=== PATIENT | male | born 1950 | race Caucasian/White ===

== ENCOUNTER 2019-05-11 10:08 | Outpatient (CLI) | payer MEDICARE, SELFPAY ==
--- NOTE | 2019-05-11 10:15 | USCV_ITS ---
Jamie Davison Age: 68 Gender: M : 1950 Exam Date: 05/11/2019 10:26 Ordering Phys: Bonilla Franco MD ([email or web address]) Technologist: Chely Li [place] [facility] [place]: AAA HISTORY: Diameter (cm) AP x Transverse x Length Velocity (cm/s) Waveform Prox Aorta: 3.63 x 3.32 x 62.10 Biphasic Mid Aorta: 2.04 x 1.88 x 65.60 Biphasic Distal Aorta: 2.79 x 2.67 x 39.40 Biphasic Right Iliac Prox: 0.96 x 0.86 x 71.30 Biphasic Left Iliac Prox: 0.79 x 0.62 x 52.70 Biphasic Stent Prox Landing x x Aneurysmal Sac Max x x Lt Lat Sac Dim Rt Lat Sac Dim Stent Dist Landing x x Right Iliac Stent x x Left Iliac Stent x x Right Renal Art Left Renal Art FINDINGS: Comparison:. 01/11/17. Moderate atherosclerosis and ectasia abdomen aorta. Mild progression of athersclerosis since 2017. Maximum diameter is now in the supraumbilical aorta, 3.6 cm. There is no evidence of a right common iliac artery aneurysm. There is no evidence of a left common iliac artery aneurysm. CONCLUSIONS Mild progression of atherosclerosis and AAA since 2017. Maximum diameter now 3.[address] Yumiko Rivero DO (Electronically Signed) Final Date: 11 May 2019 11:47 S
== END 2019-05-11 10:09 | disposition home or self-care (01) ==
LOC: RAD 10:12
PROVIDERS: Family Provider Nurse Practitioner Family; PCP Nurse Practitioner Family; Visit Provider Internal Medicine Cardiovascular Disease
DX: I71.4 Abdominal aortic aneurysm, without rupture (principal); I70.0 Atherosclerosis of aorta
CPT/HCPCS: 93978

== ENCOUNTER 2020-07-12 08:42 | Outpatient (CLI) | payer MEDICARE, SELFPAY ==
--- NOTE | 2020-07-12 08:45 | USCV_ITS ---
Jamie Davison Age: 69 Gender: M : 1950 Exam Date: 07/12/2020 09:06 Ordering Phys: Gamaliel Varela M.D ([email or web address]) Technologist: Nancy Velasquez [place] [facility] [place] AAA HISTORY: Diameter (cm) AP x Transverse x Length Velocity (cm/s) Waveform Prox Aorta: 0.00 x 3.63 x 121.50 Mid Aorta: 3.31 x 2.91 x 118.40 Distal Aorta: 2.64 x 2.36 x 45.75 Right Iliac Prox: 0.79 x 0.94 x 64.10 Left Iliac Prox: 0.85 x 0.99 x 79.50 Stent Prox Landing x x Aneurysmal Sac Max x x Lt Lat Sac Dim Rt Lat Sac Dim Stent Dist Landing x x Right Iliac Stent x x Left Iliac Stent x x Right Renal Art Left Renal Art FINDINGS: Comparison: none available. Suprarenal AAA stable at 3.5 cm. Ectatic abdominal aorta with evidence of atherosclerotic plaque noted. No evidence of periaortic fluid is detected. There is no evidence of a left common iliac artery aneurysm. There is no evidence of a right common iliac artery aneurysm. CONCLUSIONS Stable suprarenal AAA, 3.[address] Yumiko Rivero DO (Electronically Signed) Final Date: 12 July 2020 12:25 S
== END 2020-07-12 08:43 | disposition home or self-care (01) ==
LOC: RAD 08:50
PROVIDERS: PCP Nurse Practitioner Family; Visit Provider Internal Medicine
DX: I71.4 Abdominal aortic aneurysm, without rupture (principal)
CPT/HCPCS: 93978

== ENCOUNTER 2020-11-05 12:27 | Outpatient (CLI) | payer MEDICARE, SELFPAY ==
--- NOTE | 2020-11-05 12:45 | USCV_ITS ---
Jamie Davison Age: 70 Gender: M : 1950 Exam Date: 11/05/2020 12:48 Ordering Phys: Milton Marvin MD (Andy) ([email or web address] [email or web address] Technologist: Ela Holder Exam Location: [facility] [place] Indication: HISTORY: PROCEDURES: FINDINGS: Enlarged lymph node in the left groin measuring 3.1 x 1.4 cm The veins were found to be easily compressible with spontaneous blood flow. Non pulsatile flow pattern. The greater saphenous vein was found to be dilated and superficial bilaterally Multiple echolucent areas in the subcutaneous tissue of the left lower extremity CONCLUSIONS 1. No evidence of DVT in the above-mentioned identifiable veins. 2. Significant venous reflux of greater than 500 ms was noted in the proximal small saphenous vein segment on the right side. The vein was measuring 0.35 cm in diameter at a depth of 0.28 cm 3. No significant venous reflux on the left side 4. Possible enlarged lymph node measuring 3.1 x 1.4 cm in the left groin. 5. Features of fluid retention/marked edema in the left below-knee area Dr Noel Mcclure MD [facility] (Electronically Signed) Final Date: 06 November 2020 23:07 S
== END 2020-11-05 12:28 | disposition home or self-care (01) ==
LOC: RAD 12:32
PROVIDERS: PCP Nurse Practitioner Family; Visit Provider Thoracic Surgery (Cardiothoracic Vascular Surgery)
DX: M79.604 Pain in right leg (principal); M79.605 Pain in left leg
CPT/HCPCS: 93970

== ENCOUNTER 2020-12-24 10:38 | Outpatient (CLI) | payer MEDICARE, SELFPAY ==
--- NOTE | 2020-12-24 11:00 | USCV_ITS ---
Jamie Davison Age: 70 Gender: M : 1950 Exam Date: 12/24/2020 21:22 Ordering Phys: Milotn Marvin MD (Andy) ([email or web address]) Technologist: Christina De Leon Exam Location: [facility] [place] Indication: Pain in leg Risk Factors: Previous Vascular Surgery: Unknown RIGHT LEFT Waveform Velocity (cm/s) Velocity (cm/s) Waveform Triphasic 41.7 Iliac Mid 44.6 Triphasic Triphasic 36.8 Iliac Distal 48.7 Triphasic Triphasic 32.5 CENTRAL OFFICE REPAIRER 38.1 Triphasic Biphasic 27.3 SFA Prox 45.4 Biphasic Biphasic SFA Mid Triphasic 19.7 46.0 SFA Dist 68.4 Triphasic POP 34.2 Triphasic Monophasic 28.2 CONTRACT NEGOTIATION MANAGER 82.9 Monophasic Monophasic 13.7 DPA 46.7 Monophasic ROCHELLE 1.0 0.8 FINDINGS Prior exam on . See measurements listed above. Resting ROCHELLE 0.8 on the right side and 1.0 on the left side No Doppler flow signals in the distal superficial femoral artery and popliteal artery on the right side Mild to moderate diffuse plaques in the iliac and femoral arteries bilaterally CONCLUSIONS 1. Slightly diminished resting ROCHELLE of 0.8 on the right side. No Doppler flow signals in the distal superficial femoral and popliteal artery on the right side suggesting occlusion with collateral filling of the distal vessels. 2. Normal resting ROCHLELE on the left side, suggesting no significant arterial obstruction. 3. Mild to moderate diffuse plaques in the iliac and femoral arteries bilaterally. No similar previous studies are available for comparison. Dr Noel Mcclure MD [facility] (Electronically Signed) Final Date: 24 December 2020 19:46 S
== END 2020-12-24 10:39 | disposition home or self-care (01) ==
LOC: RAD 10:44
PROVIDERS: PCP Nurse Practitioner Family; Visit Provider Thoracic Surgery (Cardiothoracic Vascular Surgery)
DX: M79.606 Pain in leg, unspecified (principal); I73.9 Peripheral vascular disease, unspecified
CPT/HCPCS: 80053; 84134; 85025; 93925

== ENCOUNTER 2021-01-17 09:51 | Outpatient (CLI) | payer MEDICARE, SELFPAY ==
--- NOTE | 2021-01-17 10:00 | CT_ITS ---
WS: [id number] CT scan of the abdominal aorta and peripheral lower extremity arteries. Additional two-dimensional co lisandro and sagittal reconstruction was performed. MIP images were also performed. 01/17/2021 Clinical Data: I73.9 - Peripheral vascular disease, unspecified Comparison: Bilateral lower extremity arterial Doppler ultrasound. DLP: 1420.[address] scans at [facility] use at least one of these dose optimization techniques: automated e xposure control; mA and/or kV adjustment per patient size (includes targeted exams where dose is matc hed to clinical indication); or iterative reconstruction. Findings: Vascular findings: The distal thoracic aorta showed atherosclerotic plaquing. The abdominal aorta showed atherosclerotic dilatation and irregularity. The renal arteries, celiac artery, SMA and LEANDRO were patent. There is at herosclerotic change of the common iliac arteries and their branches. The external iliac arteries for m the common femoral arteries which then bifurcated into the deep and superficial femoral arteries. The distal right superficial femoral artery showed atherosclerotic change and there was diminished si gnal indicating diminished flow. The popliteal artery on the right was not visualized. There was poo r filling of the proximal arteries of the right trifurcation and no contrast is seen in the distal t hird of the right leg. The distal left superficial femoral artery showed normal flow into the left popliteal artery. The art eries of the left trifurcation fill normally and flow was noted into the left ankle and foot. Abdominal and extremity findings: The lower lungs showed minimal atelectatic changes. The liver, gallbladder, spleen, pancreas and adre nal glands are unremarkable. The kidneys showed excellent bilateral contrast excretion with incidenta l cysts and perinephric stranding. The stomach, small bowel and colon were unremarkable. There is no evidence of appendicitis or diverticulitis. There is fecal material throughout the colon. No abscess, adenopathy, ascites, mass, obstruction or free air is seen. The bladder filled well and there was bl adder wall thickening which may be from prostatic enlargement. The bones of the lower thorax and lumb ar spine showed osteoarthritis at multiple degenerative disc disease along with fusion of the L1-L2 v ertebral bodies. The lower extremities showed no bony or soft tissue abnormalities. CT/CT angio abd aorta runof [id number] Impression: 1. Poor runoff into the right lower extremity with narrowing and occlusion of t he distal right superficial femoral artery along with poor filling of the right popliteal artery and arteries of the right lower extremity trifurcation. 2. Atherosclerotic change of the abdominal aorta and the distal aortic arterial branches. 3. Negative for acute intra-abdominal or pelvic abnormalities.
[2021-01-17] MEDS: iohexol 350 mg/mL 100 mL Btl IV (10:55)
== END 2021-01-17 09:52 | disposition home or self-care (01) ==
LOC: RADWPI 09:54
PROVIDERS: PCP Nurse Practitioner Family; Visit Provider Thoracic Surgery (Cardiothoracic Vascular Surgery)
DX: I73.9 Peripheral vascular disease, unspecified (principal)
CPT/HCPCS: 75635; Q9967

== ENCOUNTER → 2021-05-07 10:45 | Outpatient (BNVA) | payer MEDICARE, SELFPAY | PROVIDERS: PCP Nurse Practitioner Family; Referring Provider Internal Medicine; Visit Provider Internal Medicine | DX: Z20.822 Contact with and (suspected) exposure to COVID-19 (principal); I73.9 Peripheral vascular disease, unspecified | CPT/HCPCS: 80048; 85025; 85610; 87635 ==

== ENCOUNTER → 2021-11-03 08:35 | Outpatient (BNVA) | payer MEDICARE, SELFPAY | PROVIDERS: PCP Family Medicine; Visit Provider Family Medicine | DX: I50.9 Heart failure, unspecified (principal); I10 Essential (primary) hypertension | CPT/HCPCS: 80053; 83735; 84100; 85025 ==

== ENCOUNTER → 2021-11-20 11:00 | Outpatient (BNVA) | payer MEDICARE, SELFPAY | PROVIDERS: PCP Family Medicine; Visit Provider Nurse Practitioner Family | DX: I73.9 Peripheral vascular disease, unspecified (principal); L97.511 Non-pressure chronic ulcer of other part of right foot limited to breakdown of skin; L97.811 Non-pressure chronic ulcer of other part of right lower leg limited to breakdown of skin | CPT/HCPCS: 11042 ==

== ENCOUNTER → 2021-11-27 10:22 | Outpatient (BNVA) | payer MEDICARE, SELFPAY | PROVIDERS: PCP Family Medicine; Visit Provider Nurse Practitioner Family | DX: I73.9 Peripheral vascular disease, unspecified (principal); L97.511 Non-pressure chronic ulcer of other part of right foot limited to breakdown of skin; L97.811 Non-pressure chronic ulcer of other part of right lower leg limited to breakdown of skin | CPT/HCPCS: 11042 ==

== ENCOUNTER → 2021-12-04 09:39 | Outpatient (BNVA) | payer MEDICARE, SELFPAY | PROVIDERS: PCP Family Medicine; Visit Provider Nurse Practitioner Family | DX: I73.9 Peripheral vascular disease, unspecified (principal); L97.511 Non-pressure chronic ulcer of other part of right foot limited to breakdown of skin | CPT/HCPCS: 11042 ==

== ENCOUNTER 2021-12-09 11:59 | Outpatient (CLI) | payer MEDICARE, SELFPAY ==
--- NOTE | 2021-12-09 12:30 | USR_ITS ---
PROCEDURE INFORMATION: Exam: US Duplex Lower Extremity Arteries Exam date and time: 12/09/2021 12:38 PM Age: 71 years old Clinical indication: Other: Pad; Additional info: I73.9 - peripheral vascular disease, unspecified TECHNIQUE: Imaging protocol: Real-time ultrasound scan of the arteries of the bilateral lower extremities with 2-D guevara scale, color Doppler flow and spectral waveform analysis. Images documented and saved. COMPARISON: MR knee RT wo con* [id number] 05/10/2018 2:03 PM FINDINGS: Right common femoral artery: No occlusion or significant stenosis. Normal waveform. Right superficial femoral artery: No occlusion or significant stenosis. There is low amplitude monophasic waveform PSV 26 cm/s. Severe diffuse disease. Right popliteal artery: There is complete occlusion popliteal artery. Right calf/foot arteries: Dorsalis pedis artery low amplitude monophasic waveform PSV 17.7 cm/s. COVERED BUTTON MAKER low amplitude monophasic waveforms PSV 27 cm/s. These findings correspond to severe diffuse nonocclusive disease. Left common femoral artery: No occlusion or significant stenosis. Normal waveform. Left superficial femoral artery: No occlusion or significant stenosis. The distal biphasic waveforms Left popliteal artery: No occlusion or significant stenosis. Monophasic waveforms Left calf/foot arteries: COVERED BUTTON MAKER monophasic waveforms consistent with diffuse disease PSV 60 cm/s No occlusion or significant stenosis in the visualized arteries. Dorsalis pedis artery shows low amplitude monophasic waveforms PSV 42 cm/s. this finding corresponds to severe diffuse disease US/[place] [id number] IMPRESSION: 1. Severe diffuse nonocclusive disease in the left DPA. 2. Complete occlusion right popliteal artery. 3 Diffuse disease in the left COVERED BUTTON MAKER and dorsalis pedis. 4. Otherwise negative for significant disease in the bilateral leg arterial system
== END 2021-12-09 12:00 ==
LOC: RAD 12:03
PROVIDERS: PCP Family Medicine; Visit Provider Nurse Practitioner Family
DX: I73.9 Peripheral vascular disease, unspecified (principal); L97.511 Non-pressure chronic ulcer of other part of right foot limited to breakdown of skin; L97.811 Non-pressure chronic ulcer of other part of right lower leg limited to breakdown of skin
CPT/HCPCS: 11042; 93925; 99213

== ENCOUNTER → 2021-12-11 09:56 | Outpatient (BNVA) | payer MEDICARE, SELFPAY | PROVIDERS: PCP Family Medicine; Visit Provider Nurse Practitioner Family | DX: I73.9 Peripheral vascular disease, unspecified (principal); L97.511 Non-pressure chronic ulcer of other part of right foot limited to breakdown of skin | CPT/HCPCS: 11042 ==

== ENCOUNTER → 2021-12-25 10:21 | Outpatient (BNVA) | payer MEDICARE, SELFPAY | PROVIDERS: PCP Family Medicine; Visit Provider Nurse Practitioner Family | DX: I73.9 Peripheral vascular disease, unspecified (principal); L97.511 Non-pressure chronic ulcer of other part of right foot limited to breakdown of skin | CPT/HCPCS: 11042; A6212 ==

== ENCOUNTER → 2021-12-26 10:43 | Outpatient (BNVA) | payer MEDICARE, SELFPAY | PROVIDERS: PCP Family Medicine; Visit Provider Internal Medicine | DX: I73.9 Peripheral vascular disease, unspecified (principal); I11.0 Hypertensive heart disease with heart failure; I50.9 Heart failure, unspecified; I71.4 Abdominal aortic aneurysm, without rupture; E78.5 Hyperlipidemia, unspecified; S91.309A Unspecified open wound, unspecified foot, initial encounter; Z87.891 Personal history of nicotine dependence | CPT/HCPCS: 99214 ==

== ENCOUNTER → 2022-01-08 10:09 | Outpatient (BNVA) | payer MEDICARE, SELFPAY | PROVIDERS: PCP Family Medicine; Visit Provider Nurse Practitioner Family | DX: I73.9 Peripheral vascular disease, unspecified (principal); L97.512 Non-pressure chronic ulcer of other part of right foot with fat layer exposed; L03.115 Cellulitis of right lower limb | CPT/HCPCS: 11042; 87070; 87077; 87176; 87186; 87205; A6446 ==

== ENCOUNTER 2022-01-15 01:00 | Outpatient (CLI) | payer MEDICARE, SELFPAY | END 2022-01-15 23:00 | disposition home or self-care (01) | LOC: RAD 01-26 23:10 | PROVIDERS: PCP Family Medicine; Visit Provider Internal Medicine | DX: I73.9 Peripheral vascular disease, unspecified (principal); L97.512 Non-pressure chronic ulcer of other part of right foot with fat layer exposed; L03.115 Cellulitis of right lower limb | CPT/HCPCS: 11042; A6212 ==

== ENCOUNTER → 2022-01-22 09:54 | Outpatient (BNVA) | payer MEDICARE, SELFPAY | PROVIDERS: PCP Family Medicine; Visit Provider Nurse Practitioner Family | DX: I73.9 Peripheral vascular disease, unspecified (principal); L97.512 Non-pressure chronic ulcer of other part of right foot with fat layer exposed; L03.115 Cellulitis of right lower limb | CPT/HCPCS: 99213; A6212 ==

== ENCOUNTER → 2022-01-26 09:39 | Outpatient (BNVA) | payer MEDICARE, SELFPAY | PROVIDERS: PCP Family Medicine; Visit Provider Internal Medicine Cardiovascular Disease | DX: I10 Essential (primary) hypertension (principal); I50.9 Heart failure, unspecified; R58 Hemorrhage, not elsewhere classified | CPT/HCPCS: 80048; 83880; 85025 ==

== ENCOUNTER 2022-01-27 14:30 | Inpatient (IN) | payer MEDICARE, SELFPAY ==
[2022-01-27] VITALS (11 sets, daily range): BP systolic 108–137; BP diastolic 78–98; PULSE 60–129; RESP 16–24; TEMP 36.5–36.6; O2SAT 92–100; BMI 27.0
--- NOTE | 2022-01-27 16:45 | XRR_ITS ---
PROCEDURE INFORMATION: Exam: XR Chest Exam date and time: 01/27/2022 5:02 PM Age: 71 years old Clinical indication: Cough; Additional info: Dyspnea/cough TECHNIQUE: Imaging protocol: Radiologic exam of the chest. Views: 1 view. COMPARISON: CT angio abd aorta runof [id number] 01/17/2021 10:29 AM FINDINGS: Lungs: Right upper lobe calcified granuloma. Emphysematous changes. Bibasilar atelectasis. Pleural spaces: Unremarkable. No pleural effusion. No pneumothorax. Heart/Mediastinum: Unremarkable. No cardiomegaly. Bones/joints: Unremarkable. XR/XR chest 1V portable [id number] IMPRESSION: 1. Negative for infiltrate. 2. Emphysematous changes. 3. Bibasilar atelectasis.
--- NOTE | 2022-01-27 16:45 | ECG_ITS ---
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 Measurements Intervals [place] Rate: 134 P: TX: QRS: 103 QRSD: 85 T: 0 QT: 285 QTc: 426 Interpretive Statements ATRIAL FIBRILLATION WITH RAPID VENTRICULAR RESPONSE POSSIBLE RIGHT VENTRICULAR HYPERTROPHY [SOME/ALL OF: PROMINENT R IN V1, LATE TRANSITION, RAD, [place], SSS] MINIMAL ST DEPRESSION [0.025+ mV ST DEPRESSION] No previous ECG available for comparison Electronically Signed On 01-27-2022 21:46:49 CDT by Noel Mcclure M.D. [email or web address]
--- NOTE | 2022-01-27 17:02 | PC.NURSE ---
pt reports he was seen at his dr, was doing lab work to be cleared for an angio this week and was told he is in kidney failure. pt denies any sypmtoms. pt on baseline oxygen. lung sounds clear bilat.
[2022-01-27 17:10] LABS: Basophils % 0.4 %; Eosinophils # 0.1 10^3/uL (0.0-0.8); Eosinophils % 2.2 %; Hematocrit 31.6 % (42.0-52.0); Hemoglobin 10.3 g/dL (11.7-16.6); Lymphocytes # 0.4 10^3/uL (0.8-4.8); Lymphocytes % 8.1 %; Mean Corpuscular HGB Conc 32.6 g/dL (30.0-36.0); Mean Corpuscular Hemoglobin 30.9 pg (28.0-34.0); Mean Corpuscular Volume 94.9 fl (80-94); Mean Platelet Volume 9.3 fL (7.4-10.4); Monocytes % 18.3 %; Neutrophils % 70.1 %; Nucleated Red Blood Cells % 0 %; Platelet Count 149 10^3/cmm (130-400); Red Blood Count 3.33 10^6/uL (4.1-5.3); Red Cell Distribution Width 14.8 % (12.1-15.1); White Blood Count 5.4 10^3/uL (4.0-10.0)
[2022-01-27 17:26] LABS: Alanine Aminotransferase 10 U/L (0-41); Albumin Level 3.7 g/dL (3.5-5.2); Alkaline Phosphatase 92 U/L (40-130); Anion Gap 21.2 (5-19); Aspartate Amino Transferase 16 U/L (0-40); Calcium 9.1 mg/dL (8.5-10.5); Carbon Dioxide 17 mmol/L (22-29); Chloride 100 mmol/L (98-107); Globulin 3.6 g/dL (1.3-4.6); Glucose 112 mg/dL (65-115); Magnesium 1.4 mg/dL (1.7-2.3); Osmolality Calculated 306 mOsm/kg (285-295); Phosphorus 5.4 mg/dL (2.5-4.5); Potassium 5.2 mmol/L (3.5-5.1); Sodium 133 mmol/L (136-145); Total Bilirubin 0.3 mg/dL (0.15-1.2); Total Protein 7.3 g/dL (6.6-8.7)
[2022-01-27 17:27] LABS: Blood Urea Nitrogen 95 mg/dL (8-23)
--- NOTE | 2022-01-27 17:28 | USR_ITS ---
PROCEDURE INFORMATION: Exam: US Retroperitoneal Complete, Kidneys Aorta IVC. Exam date and time: 01/27/2022 5:45 PM Age: 71 years old Clinical indication: Abnormal findings; Abnormal lab test; Abnormal kidney function lab tests; Additional info: Urinary retention TECHNIQUE: Imaging protocol: Real-time ultrasound of the retroperitoneum with image documentation. Complete exam. COMPARISON: CT angio abd aorta runof [id number] 01/17/2021 10:29 AM FINDINGS: Right kidney: See below. Left kidney: Several bilateral renal cysts measuring up to 18 mm on the left. Negative for hydronephrosis or renal calculus. Aorta: Normal. No aneurysm. Common iliac arteries: Normal. Inferior vena cava: Normal. US/US renal BI* [id number] IMPRESSION: 1. Negative for hydronephrosis or renal calculus. 2. Several bilateral renal cysts measuring up to 18 mm on the left.
--- NOTE | 2022-01-27 17:28 | W.ED.GENADLT ---
HPI - General Adult General: Chief complaint: General Medical Stated complaint: sent by dr kidney failure Time Seen by Provider: 01/27/22 16:43 Source: patient Mode of arrival: ambulatory History of Present Illness: 71-year-old male directed to the ER because of abnormal labs. Patient is previous but had problems with renal failure. He had labs done by his primary care doctor his creatinine was 5.3 his normal baseline is 1.1-1.2. He does drink heavily for years he will drink up to 1/5 of whiskey or more per day over the last couple days he drank 2/5 of whiskey. He also relates that he is going to the bathroom 2-3 times per hour with only a small amount of dribbling each time does not feel like he gets his bladder completely empty denies any dysuria urgency or frequency no fever sweats chills or flank pain no shortness of breath or abdominal pain. He states other than the abnormal labs which they called him and he feels fine. Onset (ago): unknown Relieving factors: none Exacerbating factors: none Associated symptoms: Deny chest pain, confusion, cough, diaphoresis, decreased appetite, dyspnea, fevers/chills, headache(s), malaise, nausea, rash, palpitations, seizures, short of breath, syncope, vomiting or weakness Review of Systems Const: Denies: malaise or diaphoresis ENMT: Denies: throat pain, ear or mastoid pain, nasal discharge or nasal congestion Card: Denies: chest pain, palpitations or syncope Resp: Denies: dyspnea GI: Denies: abdominal pain, nausea or vomiting : Reports: difficulty urinating, urinary frequency, urinary dribbling and difficulty starting urination; Denies: flank pain, dysuria, urinary urgency or hematuria Skin/Breast: Denies: rash Neuro: Denies: headache(s) or confusion PFS ED PFSH: Medical History AAA (abdominal aortic aneurysm) CHF (congestive heart failure) Dyslipidemia HTN (hypertension) PAD (peripheral artery disease) Family History Father Hypertension CAD (coronary artery disease) Myocardial infarction Stroke Mother Cancer Denies family history of Diabetes Clotting disorder Dementia Chronic kidney disease (CKD) Suicide Anesthesia complication Bleeding disorder Lung disease Social History Smoking and tobacco status: former smoker Quit status (tobacco): has quit using tobacco Year quit tobacco: 2012 Alcohol intake: current Alcohol intake frequency: 0-2 Drinks per Day Lives independently: Yes Housing: House Physical Exam Const: GENERAL APPEARANCE: cooperative and comfortable ORIENTATION/CONSCIOUSNESS: Yes awake, Yes oriented to person, Yes oriented to place and Yes oriented to time HENMT: COMMON NORMALS: normocephalic, atraumatic and hearing grossly normal bilaterally HEAD & SCALP: normocephalic and atraumatic Resp: COMMON NORMALS: normal respiratory effort, No retractions, No use of accessory muscles and clear to auscultation bilaterally AUSCULTATION: clear to auscultation bilaterally Cardio: COMMON NORMALS: regular rate, regular rhythm and No murmurs present (Cardio) RATE: regular rate RHYTHM: regular rhythm GI: COMMON NORMALS: Soft to palpation and No hepatosplenomegaly present AUSCULTATION: Yes normoactive bowel sounds PALPATION: Yes Soft to palpation, No Tenderness to palpation present (GI), No Guarding due to palpation present (GI) and Yes No hepatosplenomegaly present Extremity: COMMON NORMALS: normal to inspection, capillary refill normal, no clubbing, cyanosis or edema, no calf tenderness and no pedal edema Neuro: SENSORIUM/ORIENTATION: Yes oriented to person, Yes oriented to place and Yes oriented to time Skin: COMMON NORMALS: no rashes or lesions noted GENERAL SKIN EXAM: no rashes or lesions noted Course Vital Signs: Vital signs: Vital Signs Temperature 97.9 F 01/27/22 15:20 Pulse Rate 124 H 01/27/22 15:20 Respiratory Rate 16 01/27/22 15:20 Blood Pressure 117/78 01/27/22 15:20 Pulse Oximetry 98 01/27/22 15:20 Oxygen Delivery Me thod 01/27/22 15:20 Oxygen Flow Rate 4 01/27/22 15:20 MDM - General Adult Medical Decision Making Acute kidney injury. Suspect he has significant urinary retention. Were placing Ashley give fluid bolus. Admit to hospitalist discussed with them also put him on a CIWA protocol orders written Medical Records I reviewed the patient's medical records. Lab Data I reviewed the patient's lab results. : 01/27/22 16:56 01/27/22 16:56 Radiology Impressions Chest X-Ray 01/27/22 16:45 IMPRESSION: 1. Negative for infiltrate. 2. Emphysematous changes. 3. Bibasilar atelectasis. Laboratory Results WBC 5.4 10^3/uL (4.0-10.0) 01/27/22 16:56 RBC 3.33 10^6/uL (4.1-5.3) L 01/27/22 16:56 Hgb 10.3 g/dL (11.7-16.6) L 01/27/22 16:56 Hct 31.6 % (42.0-52.0) L 01/27/22 16:56 MCV 94.9 fl (80-94) H 01/27/22 16:56 MCH 30.9 pg (28.0-34.0) 01/27/22 16:56 MCHC 32.6 g/dL (30.0-36.0) 01/27/22 16:56 RDW 14.8 % (12.1-15.1) 01/27/22 16:56 Plt Count 149 10^3/cmm (130-400) 01/27/22 16:56 MPV 9.3 fL (7.4-10.4) 01/27/22 16:56 Neut % (Auto) 70.1 % 01/27/22 16:56 Lymph % (Auto) 8.1 % 01/27/22 16:56 [place] % (Auto) 18.3 % 01/27/22 16:56 Eos % (Auto) 2.2 % 01/27/22 16:56 Baso % (Auto) 0.4 % 01/27/22 16:56 Neut # (Auto) 3.80 10^3/uL (1.8-7.7) 01/27/22 16:56 Lymph # (Auto) 0.4 10^3/uL (0.8-4.8) L 01/27/22 16:56 [place] # (Auto) 1.0 10^3/uL (0.2-0.9) H 01/27/22 16:56 Eos # (Auto) 0.1 10^3/uL (0.0-0.8) 01/27/22 16:56 Baso # (Auto) 0.0 10^3/uL (0.0-0.1) 01/27/22 16:56 Nucleated RBC % (auto) 0 % 01/27/22 16:56 Nucleated RBCs # 0.0 /100WBC 01/27/22 16:56 Sodium 133 mmol/L (136-145) L 01/27/22 16:56 Potassium 5.2 mmol/L (3.5-5.1) H 01/27/22 16:56 Chloride 100 mmol/L (98-107) 01/27/22 16:56 Carbon Dioxide 17 mmol/L (22-29) L 01/27/22 16:56 Anion Gap 21.2 (5-19) H 01/27/22 16:56 BUN 95 mg/dL (8-23) H* 01/27/22 16:56 Creatinine 4.7 mg/dL (0.7-1.2) H 01/27/22 16:56 GFR Calculation Not Reportable 01/27/22 16:56 Glucose 112 mg/dL (65-115) 01/27/22 16:56 Calculated Osmolality 306 mOsm/kg (285-295) H 01/27/22 16:56 Calcium 9.1 mg/dL (8.5-10.5) 01/27/22 16:56 Phosphorus 5.4 mg/dL (2.5-4.5) H 01/27/22 16:56 Magnesium 1.4 mg/dL (1.7-2.3) L 01/27/22 16:56 Total Bilirubin 0.3 mg/dL (0.15-1.2) 01/27/22 16:56 AST 16 U/L (0-40) 01/27/22 16:56 ALT 10 U/L (0-41) 01/27/22 16:56 Alkaline Phosphatase 92 U/L (40-130) 01/27/22 16:56 Total Protein 7.3 g/dL (6.6-8.7) 01/27/22 16:56 Albumin 3.7 g/dL (3.5-5.2) 01/27/22 16:56 Globulin 3.6 g/dL (1.3-4.6) 01/27/22 16:56 Discharge Plan Discharge Patient Disposition: Admitted As Inpatient Clinical Impression: Acute kidney injury, HTN (hypertension), Alcohol abuse, Acute urinary retention Condition: Stable Prescriptions: No Action montelukast [Singulair] 10 mg tablet 10 mg PO DAILY tizanidine 4 mg capsule 4 mg PO Q8H PRN (Reason: Muscle Spasm) mirtazapine 15 mg tablet 15 mg PO DAILY fluticasone propionate [Flonase Allergy Relief] 50 mcg/actuation spray,suspension 1 spray INTRANASAL DAILY Rx Instructions: administer into each nostril budesonide-formoterol [Symbicort] 160-4.5 mcg/actuation HFA aerosol inhaler 2 puff INHALATION BID albuterol sulfate [Ventolin HFA] 90 mcg/actuation HFA aerosol inhaler 2 puff INHALATION Q6H PRN (Reason: Shortness Of Breath) ipratropium-albuterol 0.5 mg-3 mg(2.5 mg base)/3 mL solution for nebulization 3 ml INHALATION Q6H PRN (Reason: Shortness Of Breath) metoprolol tartrate 50 mg tablet 50 mg PO BID losartan 50 mg tablet 50 mg PO DAILY gabapentin 300 mg capsule PO multivitamin Tablet 1 tab PO DAILY 30 Days Qty: 30 0RF folic acid 1 mg tablet 1 mg PO DAILY 30 Days Qty: 30 0RF magnesium L-lactate [Magtab] 84 mg tablet extended release 84 mg PO DAILY 30 Days Qty: 30 0RF potassium chloride [Klor-Con M20] 20 mEq tablet,ER particles/crystals 20 meq PO BID 14 Days Qty: 28 0RF furosemide 20 mg tablet See Rx Instructions PO QAM Qty: 45 0RF Rx Instructions: Take one tablet daily; may take an extra tablet if increase in swelling. 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
--- NOTE | 2022-01-27 17:47 | USCV_ITS ---
Jamie Davison Age: 71 Gender: M : 1950 Exam Date: 01/27/2022 21:27 Ordering Phys: Timi Roque MD Technologist: YOLIE Exam Location: [facility] [place] Indication: chest pain. No history of cardiac intervention per patient. BP: 137 / 98 HR: 91 Rhythm: Atrial fibrillation Technical Quality: technically difficult, poor to fair, c/o poor windows MEASUREMENTS (Male / Female) Normal Values 2D ECHO LV Diastolic Diameter PLAX 3.4 cm 4.2 - 5.9 / 3.9 - 5.3 cm LV Systolic Diameter PLAX 2.5 cm IVS Diastolic Thickness 2.0 cm 0.6 - 1.0 / 0.6 - 0.9 cm IVS Systolic Thickness 1.9 cm LVPW Diastolic Thickness 1.9 cm 0.6 - 1.0 / 0.6 - 0.9 cm LVPW Systolic Thickness 2.0 cm LVOT Diameter 2.1 cm LV Ejection Fraction 2D Teich 51.5 % LV Ejection Fraction MOD 2C 59.9 % LV Ejection Fraction 2C AL 65.3 % LA Diameter 5.9 cm LA Width 3.4 cm LA Height 6.5 cm RA Width 4.0 cm RA Height 5.8 cm Aorta at Sinotubular Diameter 3.9 cm IVC Diameter 1.8 cm M-MODE Aortic Annulus Diameter 4.0 cm LA Ao Ratio MM 1.3 MV E Point Septal Separation 0.1 cm DOPPLER AV Peak Velocity 80.0 cm/s LVOT Peak Velocity 112.0 cm/s AV Area Cont Eq vti 3.2 cm squared AV Area Cont Eq pk 4.9 cm squared MV Peak Velocity 165.0 cm/s MV Area PHT 5.4 cm squared MV E' Velocity 78.5 cm/s Mitral E to MV E' Ratio 7.8 Mitral E to LV E' Lateral Ratio 6.6 Mitral E to LV E' Septal Ratio 9.8 TR Peak Velocity 282.7 cm/s TR Peak Gradient 32.0 mmHg TV Peak E Velocity 86.0 cm/s Right Atrial Pressure 10.0 mmHg Pulmonary Artery Systolic Pressu 42.0 mmHg PV Peak Velocity 89.0 cm/s RV Acceleration Time 0.1 s RV Ejection Time 0.3 s RV AcT/ET 0.2 FINDINGS Left Ventricle Normal left ventricular size, systolic function with no diagnostic regional wall motion abnormalities. Left ventricular ejection fraction is estimated at 65 %. Right Ventricle Normal right ventricular size and systolic function. Right ventricular systolic pressure 37 mmHg. Right Atrium Normal right atrial size. Left Atrium Normal left atrial size. Mitral Valve Mild mitral annular calcification. Structurally normal mitral valve. No mitral valve stenosis. Trace mitral valve regurgitation. Aortic Valve Structurally normal trileaflet aortic valve. No aortic valve stenosis. No aortic valve regurgitation. Tricuspid Valve Structurally normal tricuspid valve. No tricuspid valve stenosis. Trace tricuspid valve regurgitation. Pulmonic Valve Pulmonic valve not well visualized. Pericardium No pericardial effusion. Aorta Normal size aortic root and proximal ascending aorta. IVC Normal IVC dimension with >50% respiratory change of the inferior vena cava. CONCLUSIONS 1. Normal left ventricular size, systolic function with no diagnostic regional wall motion abnormalities. Left ventricular ejection fraction is estimated at 65 %. 2. Normal right ventricular size and systolic function. 3. No prior similar studies to compare. Kathy Loza MD (Electronically Signed) Final Date: 28 January 2022 17:02 S
--- NOTE | 2022-01-27 17:47 | USR_ITS ---
PROCEDURE INFORMATION: Exam: US Duplex Lower Extremity Veins, Bilateral Exam date and time: 01/27/2022 5:54 PM Age: 71 years old Clinical indication: Swelling (edema) of limb; Lower extremity, bilateral; Additional info: Dvt TECHNIQUE: Imaging protocol: Real-time Duplex ultrasound of the bilateral extremities with 2-D guevara scale, color Doppler flow and spectral waveform analysis with image documentation. Complete exam focused on the bilateral lower extremity veins. COMPARISON: MR knee RT wo con* [id number] 05/10/2018 2:03 PM FINDINGS: Right deep veins: Unremarkable. The common femoral, femoral, proximal profunda femoral and popliteal veins are patent without thrombus. Normal Doppler waveforms. Normal compressibility and/or augmentation response. Right superficial veins: Saphenofemoral junction is patent without thrombus. Left deep veins: Unremarkable. The common femoral, femoral, proximal profunda femoral and popliteal veins are patent without thrombus. Normal Doppler waveforms. Normal compressibility and/or augmentation response. Left superficial veins: Saphenofemoral junction is patent without thrombus. Soft tissues: Unremarkable. US/CV venous duplex [facility] [id number] IMPRESSION: No evidence of deep vein thrombosis.
--- NOTE | 2022-01-27 17:57 | PM.HP ---
Providers/Chief Complaint Primary Care Provider: Timi Roque MD Chief Complaint: sent by dr, kidney failure History of Present Illness Jamie Davison is a 71 year old male with a past medical history of peripheral vascular disease with plans on peripheral angiography today,, chronic bilateral lower extremity wounds managed through wound care, history of alcoholism, history of CHF, history of bilateral from edema history of chronic kidney disease, history of COPD, history of abdominal aortic aneurysm, hypertension, who presents to [facility] who presents [facility] from my office due to concerns for acute renal failure. I sent patient in to clinic, as his creatinine was 5.2, patient was supposed to have a peripheral angiogram by Dr. Franco, however he has abnormal labs which I had reviewed and told patient through my nurse to come to the emergency room. Patient tells me that its been hard to completely empty his bladder recently, he urinates multiple times throughout the day, but never completely empties his bladder. No flank pain, no fevers, no chills, he has never had any kidney stones. He denies any history of prostate issues, but tells me he has never been checked for it. He tells me that he has feelings of incomplete emptying, postvoid dribbling, he urinates multiple times throughout the day which is his normal. He reports alcoholism, he drinks half a bottle of whiskey at a time, he bridge drinks alcohol, his last binge was on Wednesday, denies a history of alcohol withdrawals, denies a history of withdrawal seizures, denies history of delirium tremens, denies seeing or hearing things are not there. During my examination his heart rate was were in the 130s, sinus tachycardia, he tells me that he is out of his metoprolol and has not received a refill. He is taking his medication as prescribed, denies any drug use. He does report intermittent chest pain,, substernal, nonradiating, no history of cardiovascular disease, history of strokes Review of Systems Const: Denies: fever(s) Card: Reports: chest pain and edema; Denies: palpitations or syncope GI: Denies: abdominal pain Medications/Allergies Home Medications Medication Instructions Recorded Confirmed Last Taken Type albuterol sulfate 90 mcg/actuation 2 puff inhalation Q6H PRN 09/20/19 01/02/22 Unknown History aerosol inhaler (Ventolin HFA) Shortness Of Breath budesonide-formoterol HFA 160 2 puff inhalation BID 09/20/19 01/02/22 Unknown History mcg-4.5 mcg/actuation aerosol inhaler (Symbicort) fluticasone propionate 50 1 spray intranasal DAILY 09/20/19 01/02/22 Unknown History mcg/actuation nasal spray,suspension (Flonase Allergy Relief) ipratropium 0.5 mg-albuterol 3 mg 3 ml inhalation Q6H PRN Shortness 09/20/19 01/02/22 Unknown History (2.5 mg base)/3 mL nebulization Of Breath soln mirtazapine 15 mg tablet 15 mg PO DAILY 09/20/19 01/02/22 Unknown History montelukast 10 mg tablet 10 mg PO DAILY 09/20/19 01/02/22 Unknown History (Singulair) tizanidine 4 mg capsule 4 mg PO Q8H PRN Muscle Spasm 09/20/19 01/02/22 Unknown History metoprolol tartrate 50 mg tablet 50 mg PO BID 08/09/20 01/02/22 Unknown History lisinopril 20 mg tablet 20 mg PO DAILY #90 tabs 03/26/21 01/02/22 Unknown Rx gabapentin 300 mg capsule ea PO 10/28/21 01/02/22 Unknown History losartan 50 mg tablet 50 mg PO DAILY 10/28/21 01/02/22 Unknown History folic acid 1 mg tablet 1 mg PO DAILY 30 days #30 tabs 10/31/21 01/02/22 Unknown Rx magnesium L-lactate 84 mg 84 mg PO DAILY 30 days #30 tabs 10/31/21 01/02/22 Unknown Rx tablet,extended release (Magtab) multivitamin 1 tab PO DAILY 30 days #30 tabs 10/31/21 01/02/22 Unknown Rx potassium chloride 20 mEq 20 meq PO BID 14 days #28 tabs 10/31/21 01/02/22 Unknown Rx tablet,extended release(part/cryst) (Klor-Con M) furosemide 20 mg tablet See Rx Instructions PO QAM #45 tabs 11/25/21 01/02/22 Unknown Rx clindamycin HCl 300 mg capsule 300 mg PO TID 7 days #21 caps 01/02/22 01/02/22 Unknown Rx sulfamethoxazole 800 1 tab PO BID 10 days #20 tabs 10/07/22 10/07/22 Unknown Rx mg-trimethoprim 160 mg tablet (Bactrim DS) atorvastatin 40 mg tablet 40 mg PO DAILY #30 tabs 01/26/22 Unknown Rx Allergies Allergy/AdvReac Type Severity Reaction Status Date / Time bupropion [From Wellbutrin] Allergy Mild SHORT OF Verified 01/02/22 14:03 BREATH PFSH Acute PFSH: Medical History AAA (abdominal aortic aneurysm) CHF (congestive heart failure) Dyslipidemia HTN (hypertension) PAD (peripheral artery disease) Family History Father Hypertension CAD (coronary artery disease) Myocardial infarction Stroke Mother Cancer Denies family history of Diabetes Clotting disorder Dementia Chronic kidney disease (CKD) Suicide Anesthesia complication Bleeding disorder Lung disease Social History Smoking and tobacco status: former smoker Quit status (tobacco): has quit using tobacco Year quit tobacco: 2013 Alcohol intake: current Alcohol intake frequency: 0-2 Drinks per Day Lives independently: Yes Housing: House Vitals/I&O/Wt Last Vital Signs Temp 97.9 F 01/27/22 15:20 Pulse 124 H 01/27/22 15:20 Resp 16 01/27/22 15:20 BP 117/78 01/27/22 15:20 Pulse Ox 98 01/27/22 15:20 O2 Del Method 01/27/22 15:20 O2 Flow Rate 4 01/27/22 15:20 Weight last 48 hrs Weight 92.986 kg Physical Exam Const: COMMON NORMALS: no acute distress and patient oriented x3 HENMT: COMMON NORMALS: normocephalic HEAD & SCALP: normocephalic Eye: COMMON NORMALS: Equal, round and reactive pupils present and EOMs intact bilaterally Neck/C-Spine: COMMON NORMALS: no JVD Resp: COMMON NORMALS: normal respiratory effort, No retractions, No use of accessory muscles and clear to auscultation bilaterally AUSCULTATION: clear to auscultation bilaterally Cardio: COMMON NORMALS: regular rhythm, S1 normal heart sound present and S2 normal heart sound present RATE: tachycardic RHYTHM: regular rhythm HEART SOUNDS: S1 normal heart sound present and S2 normal heart sound present GI: COMMON NORMALS: Normal to inspection, nondistended, normoactive bowel sounds present, Soft to palpation and non-tender PALPATION: Yes Soft to palpation and Yes No hepatosplenomegaly present Extremity: COMMON NORMALS: no pedal edema OTHER: Bilateral lower extremities, cool DP pulses bilaterally barely palpable, PT pulse is bilaterally not palpable, no lower extremity pain, Does have bilateral lower extremity ulcers, left foot, on the top of his foot, 1 x 1 cm round ulcer Right foot, first digit, superficial ulcer Neuro: COMMON NORMALS: patient oriented x3, CN's II-XII intact bilaterally and moves all extremities Psych: COMMON NORMALS: mental status grossly normal Data : 01/27/22 16:56 01/27/22 16:56 A&P Assessment and plan (1) Acute kidney injury: (2) Alcohol abuse: (3) Acute urinary retention: (4) Wound of right foot: (5) Nonhealing wound of heel: (6) PAD (peripheral artery disease): (7) HTN (hypertension): (8) Dyslipidemia: (9) CHF (congestive heart failure): (10) Chest pain: Plan CORY on CKD -Likely related to obstructive uropathy, enlarged prostate -Place Ashley catheter -Start IV fluids -Renal ultrasound -CPK -Consult nephrology -Await UA for possible UTI, will consider antibiotics Alcohol abuse, with concerns for alcohol withdrawal -History of binge drinking -[facility] protocol -Thiamine, folic acid, IV fluids Hyponatremia acute on chronic related to alcoholism Acute on chronic anemia, 10.3 monitor, likely related to alcoholism Chest pain, serial EKGs, serial troponins, telemetry monitoring, continue aspirin, statin Peripheral vascular disease -12/09/2021 arterial duplex -1. Severe diffuse nonocclusive disease in the left DPA. 2. Complete occlusion right popliteal artery. 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 4. Otherwise negative for significant disease in the bilateral leg arterial -Currently lower extremities cool, clammy, I could palpate DP pulses bilaterally, posterior tibial pulses -We will do Dopplers bilateral extremity -No evidence of acute obstruction, was supposed to have a peripheral angiogram today however cannot given his CORY as above -We will continue to monitor, medically optimized, discussed with Dr. Franco patient's kidney function is improved Sinus tachycardia -Serial EKGs, serial troponins -Replace magnesium -Etiology potentially multifactorial from alcoholism versus beta-marnie withdrawal system Attestations Medical Necessity Statement*: Patient requires hospitalization inpatient, greater than 2 midnights, for CORY, on CKD, acute urinary retention, chest pain, peripheral vascular disease Coding Level of Care Code Acute Practice Representative for [facility] Fwd Diagnoses Acute kidney injury N17.9 Alcohol abuse F10.10 Acute urinary retention R33.8 Wound of right foot S91.301A Nonhealing wound of heel S91.309A PAD (peripheral artery disease) I73.9 HTN (hypertension) I10 Dyslipidemia E78.5 CHF (congestive heart failure) I50.9 Chest pain R07.9
--- NOTE | 2022-01-27 18:04 | PM.CONSULT ---
Providers/Reason For Consult Consulting Physician/Specialty*: rashi lamas md / telenephrology Reason for Consult*: CORY, hyponatremia Requesting Physician: Dr Sari Roque Attending Physician: Dr Roque Primary Care Provider: Timi Roque MD History of Present Illness History of Present Illness Jamie Davison is a 71 year old male AAA, CHF, HTN, PAD. Pt sent to ER for CORY. pt states he is weak, lethargic, has leg pains. he also admits to drinking ETOH and having urinary frequency. Pt had a Renal us in eR that did not reveal hydronephrosis. Renal called for CORY Review of Systems Narrative: weak, leg pains and edema. no sob, cp, james, diarrhea, gi symptoms. + leg pain and swelling Medications/Allergies Home Medications Medication Instructions Recorded Confirmed Last Taken Type albuterol sulfate 90 mcg/actuation 2 puff inhalation Q6H PRN 09/20/19 01/02/22 Unknown History aerosol inhaler (Ventolin HFA) Shortness Of Breath budesonide-formoterol HFA 160 2 puff inhalation BID 09/20/19 01/02/22 Unknown History mcg-4.5 mcg/actuation aerosol inhaler (Symbicort) fluticasone propionate 50 1 spray intranasal DAILY 09/20/19 01/02/22 Unknown History mcg/actuation nasal spray,suspension (Flonase Allergy Relief) ipratropium 0.5 mg-albuterol 3 mg 3 ml inhalation Q6H PRN Shortness 09/20/19 01/02/22 Unknown History (2.5 mg base)/3 mL nebulization Of Breath soln mirtazapine 15 mg tablet 15 mg PO DAILY 09/20/19 01/02/22 Unknown History montelukast 10 mg tablet 10 mg PO DAILY 09/20/19 01/02/22 Unknown History (Singulair) tizanidine 4 mg capsule 4 mg PO Q8H PRN Muscle Spasm 09/20/19 01/02/22 Unknown History metoprolol tartrate 50 mg tablet 50 mg PO BID 08/09/20 01/02/22 Unknown History lisinopril 20 mg tablet 20 mg PO DAILY #90 tabs 03/26/21 01/02/22 Unknown Rx gabapentin 300 mg capsule ea PO 08/02/22 10/07/22 Unknown History losartan 50 mg tablet 50 mg PO DAILY 10/28/21 01/02/22 Unknown History folic acid 1 mg tablet 1 mg PO DAILY 30 days #30 tabs 10/31/21 01/02/22 Unknown Rx magnesium L-lactate 84 mg 84 mg PO DAILY 30 days #30 tabs 10/31/21 01/02/22 Unknown Rx tablet,extended release (Magtab) multivitamin 1 tab PO DAILY 30 days #30 tabs 10/31/21 01/02/22 Unknown Rx potassium chloride 20 mEq 20 meq PO BID 14 days #28 tabs 10/31/21 01/02/22 Unknown Rx tablet,extended release(part/cryst) (Klor-Con M) furosemide 20 mg tablet See Rx Instructions PO QAM #45 tabs 11/25/21 01/02/22 Unknown Rx clindamycin HCl 300 mg capsule 300 mg PO TID 7 days #21 caps 01/02/22 01/02/22 Unknown Rx sulfamethoxazole 800 1 tab PO BID 10 days #20 tabs 01/02/22 01/02/22 Unknown Rx mg-trimethoprim 160 mg tablet (Bactrim DS) atorvastatin 40 mg tablet 40 mg PO DAILY #30 tabs 01/26/22 Unknown Rx Allergies Allergy/AdvReac Type Severity Reaction Status Date / Time bupropion [From Wellbutrin] Allergy Mild SHORT OF Verified 01/02/22 14:03 BREATH PFSH Acute PFSH: Medical History AAA (abdominal aortic aneurysm) CHF (congestive heart failure) Dyslipidemia HTN (hypertension) PAD (peripheral artery disease) Family History Father Hypertension CAD (coronary artery disease) Myocardial infarction Stroke Mother Cancer Denies family history of Diabetes Clotting disorder Dementia Chronic kidney disease (CKD) Suicide Anesthesia complication Bleeding disorder Lung disease Social History Smoking and tobacco status: former smoker Quit status (tobacco): has quit using tobacco Year quit tobacco: 2012 Alcohol intake: current Alcohol intake frequency: 0-2 Drinks per Day Lives independently: Yes Housing: House Vitals/I&O/Wt Last Vital Signs Temp 97.9 F 01/27/22 15:20 Pulse 124 H 01/27/22 15:20 Resp 16 01/27/22 15:20 BP 117/78 01/27/22 15:20 Pulse Ox 98 01/27/22 15:20 O2 Del Method 01/27/22 15:20 O2 Flow Rate 4 01/27/22 15:20 Weight last 48 hrs Weight 92.986 kg Physical Exam Narrative: looks older than stated age vs noted heent- nc/at, eomi, anicteric neck supple lungs clear heart reg abd soft, nt, nd, + bs ext edema and skin breakdown, discoloration neuro- a,a, o x 3 Data : 01/27/22 16:56 01/27/22 16:56 A&P Assessment and plan (1) Acute kidney injury: 71 yr old man 1. CORY- baseline cr was 1 in 2020. In 2021 cr was 2.3 in apr 2021 and 1.9 in October 2021- this can be from meds, +/- CRS -check ua, renal us, echo 2. worsening CORY- cr of 5.3 and 4.7 mg/dl now, can be from bactrim, Yanni-i/ ARB, lasix, and potassium- stop these meds -monitor uop and chemistries 3. hyponatremia- send ur na, osm -check tsh, cortisol 4. met acidosis from CORY. check lactate 5. hyperkalemia- from CORY, bactrim, and he takes po potassium -attempt to get an accurate home med list seen and examine dw/ RN- telehealth visit time spent 50 min Plan see above Consult Attestations Medical Necessity Statement: cory, hyponatremia, met acidosis, mild hyperkalemia Time Spent in Patient Care: Greater than 35 minutes (>than 50% of time spent in counselling and/or direct pt care on unit). Coding Level of Care Code Acute Trimmer Sorter for [facility] Diagnoses Acute kidney injury N17.9
[2022-01-27] MEDS: aspirin 81 mg EC Tablet PO (18:28)
[2022-01-27] MEDS: metoprolol tartrate 50 mg Tablet PO (18:28)
[2022-01-27] MEDS: magnesium sulfate premix 4 GM/100 ML PREMIX IV (19:07)
--- NOTE | 2022-01-27 19:15 | PC.NURSE ---
report called to JANELLE Blunt
--- NOTE | 2022-01-27 19:21 | PC.NURSE ---
Report called to Dalila on Med Surg
[2022-01-27 19:45] LABS: Lactic Sepsis W/Reflex 1.8 mmol/L (0.5-2.2)
--- NOTE | 2022-01-27 19:47 | ECG_ITS ---
[facility] Test Date: 2022-01-27 Pat Name: Jamie Davison Department: Room: 277 Gender: Male Mid Level Project Manager: : 1950 Requested By: Timi Roque Order Number: [id number] Bob MD: Noel Mcclure M.D. Measurements Intervals [place] Rate: 84 P: -67 [place]: 314 QRS: 16 QRSD: 93 T: 42 QT: 360 QTc: 426 Interpretive Statements ECTOPIC ATRIAL RHYTHM WITH FIRST DEGREE AV BLOCK Compared to ECG 01/27/2022 18:20:18 Ectopic atrial rhythm now present First degree AV block now present Atrial fibrillation no longer present ST (T wave) deviation no longer present Electronically Signed On 01-27-2022 21:54:48 CDT by Noel Mcclure M.D. [id number]
[2022-01-27 19:49] LABS: Troponin(5th) Baseline 41 ng/L (0-15)
[2022-01-27 19:56] LABS: Chol HDL Ratio 2.11 mg/dL (1.0-5.00); Cholesterol 114 mg/dL (0-200); HDL Cholesterol 54 mg/dL (60-100); LDL Cholesterol Calculated 46 mg/dL (50-129); LDL HDL Ratio 0.85 RATIO (0.00-3.22); Thyroid Stimulating Hormone 1.08 uIU/mL (0.27-4.20); Triglycerides 69 mg/dL (0-150); Uric Acid 8.9 mg/dL (3.4-7.0)
[2022-01-27 19:57] LABS: NT Pro B Type Natriuretic Pept 2965 pg/mL (0-125); Procalcitonin 0.19 ng/mL (0-0.5)
--- NOTE | 2022-01-27 20:05 | PC.NURSE ---
Urinary Catheter placed in ER prior to admission
[2022-01-27 20:07] LABS: Creatine Phosphokinase 46 U/L (39-308)
[2022-01-27 20:07] LABS: Add Urine Microscopic? NO; Charge for UA Resulting for Rev
[2022-01-27 20:09] LABS: Alcohol Level < 10 mg/dL (0-10)
[2022-01-27 20:13] LABS: Urine Appearance Clear (CLEAR); Urine Color Yellow (Yellow); pH Urine 5 (5-7)
[2022-01-27 20:14] LABS: Bilirubin Urine Neg (Negative); Blood Urine Neg (Negative); Glucose Urine UA Norm (Normal); Ketones Urine Negative (Negative); Leukocyte Esterase Urine Negative (Negative); Nitrate Urine Negative (Negative); Protein Urine Neg (Negative); Urobilinogen Urine Norm (Negative)
[2022-01-27 20:24] LABS: Amphetamines Screen Urine Negative (Negative); Barbiturates Screen Urine Negative (Negative); Benzodiazepines Screen Urine Negative (Negative); Cocaine Screen Urine Negative (Negative); Opiate Screen Urine Negative (Negative); PCP Screen Urine Negative (Negative); THC Screen Urine Negative (Negative)
[2022-01-27 20:28] LABS: Urine Random Sodium 48 mmol/L
[2022-01-27 20:55] LABS: Urine Creatinine 133 mg/dL (39-259)
[2022-01-27 21:03] LABS: Potassium, Radom Urine 27 mmol/L; Urine Random Chloride 43 mmol/L; Urine Random Sodium 48 mmol/L
[2022-01-27] MEDS: pantoprazole 40 mg SDV IVP (21:14)
[2022-01-27] MEDS: atorvastatin 40 mg Tablet PO (21:15)
[2022-01-27] MEDS: heparin 5,000 unit/mL INJ 1 mL 5000 UNIT SUBCUT (21:17)
[2022-01-27 21:44] LABS: Troponin 5 2HR 42.26 ng/L (0-15)
[2022-01-27 21:48] LABS: Estmated Average Glucose 94; Hemoglobin A1C 4.9 % (4.0-6.0)
[2022-01-27 21:54] LABS: Troponin 5 2HR Delta 1.26 ABS# (0-10)
[2022-01-27] MEDS: sodium chloride 0.9% 1,000 ML 75 ML IV (22:34)
--- NOTE | 2022-01-27 23:47 | ECG_ITS ---
[facility] Test Date: 2022-01-28 Pat Name: Jamie Davison Department: Room: 277 Gender: Male Cigar Bander Hand: : 1950 Requested By: Timi Roque Order Number: [id number] Bob MD: Kathy Loza M.D. Measurements Intervals [place] Rate: 92 P: -81 [place]: 274 QRS: 12 QRSD: 88 T: 49 QT: 365 QTc: 454 Interpretive Statements ECTOPIC ATRIAL RHYTHM WITH FIRST DEGREE AV BLOCK LOW QRS VOLTAGE IN EXTREMITY LEADS [QRS DEFLECTION < 0.5 mV IN LIMB LEADS] Compared to ECG 01/27/2022 20:53:30 Low QRS voltage now present Electronically Signed On 01-28-2022 12:14:11 CDT by Kathy Loza M.D. [id number]
[2022-01-28] VITALS (13 sets, daily range): BP systolic 108–124; BP diastolic 79–96; PULSE 77–124; RESP 12–18; TEMP 36.4–37; O2SAT 92–100
[2022-01-28 00:12] LABS: Hepatitis C Virus Antibody Non-Reactive (Nonreactive)
[2022-01-28 01:50] LABS: Troponin 5 6HR 42.28 ng/L (0-15)
[2022-01-28 01:59] LABS: Cortisol Random 12.94 ug/dL (2.47-19.5)
[2022-01-28 02:22] LABS: Troponin 5 6HR Delta 1.28 ng/L (0-12)
[2022-01-28 02:39] LABS: INR 1.19 (0.8-1.2)
[2022-01-28 04:16] LABS: Calcium 8.4 mg/dL (8.5-10.5); Parathyroid Hormone 109.2 pg/mL (15-65)
[2022-01-28 04:24] LABS: 25 Hydroxy Vitamin D 12 ng/mL (30-100); Alanine Aminotransferase 9 U/L (0-41); Albumin Level 3.3 g/dL (3.5-5.2); Alkaline Phosphatase 83 U/L (40-130); Anion Gap 17.3 (5-19); Aspartate Amino Transferase 17 U/L (0-40); Calcium 8.6 mg/dL (8.5-10.5); Carbon Dioxide 16 mmol/L (22-29); Chloride 106 mmol/L (98-107); Globulin 3.1 g/dL (1.3-4.6); Glucose 121 mg/dL (65-115); Magnesium 2.2 mg/dL (1.7-2.3); Osmolality Calculated 307 mOsm/kg (285-295); Phosphorus 5.4 mg/dL (2.5-4.5); Potassium 5.3 mmol/L (3.5-5.1); Sodium 134 mmol/L (136-145); Thyroid Stimulating Hormone 0.77 uIU/mL (0.27-4.20); Total Bilirubin 0.3 mg/dL (0.15-1.2); Total Protein 6.4 g/dL (6.6-8.7)
[2022-01-28 05:00] LABS: Blood Urea Nitrogen 91 mg/dL (8-23)
[2022-01-28] MEDS: metoprolol tartrate 50 mg Tablet PO ×2 (06:33→18:26)
--- NOTE | 2022-01-28 07:38 | PM.PN ---
Subjective Subjective: c/o pain in legs. nausea, poor appetite, weak, + etoh occasionally Medications: Reviewed: Yes Medication Review Details: Current Medications Acetaminophen (Acetaminophen 325 Mg Tablet) 650 mg PO Q6H PRN PRN Reason: Mild/Mod Pain Or Temp >/= 101 Albuterol/Ipratropium (Ipratropium-Albuterol 3 Ml Neb) 3 ml INHALATION Q6H PRN PRN Reason: SHORTNESS OF BREATH Aspirin (Aspirin 81 Mg Ec Tablet) 81 mg PO DAILY [facility] Last Admin: 01/27/22 18:28 Dose: 81 mg Atorvastatin Calcium (Atorvastatin 40 Mg Tablet) 40 mg PO BEDTIME [facility] Last Admin: 01/27/22 21:15 Dose: 40 mg Folic Acid (Folic Acid 1 Mg Tablet) 1 mg PO DAILY [facility] Heparin Sodium (Porcine) (Heparin 5,000 Unit/Ml Inj 1 Ml) 5,000 unit SUBCUT Q12H [facility] Last Admin: 01/27/22 21:17 Dose: 5,000 unit Sodium Chloride (Sodium Chloride 0.9%) 1,000 mls @ 75 mls/hr IV .[id number] [facility] Last Admin: 01/27/22 22:34 Dose: 75 mls/hr Lorazepam (Lorazepam 2 Mg/Ml Inj 1 Ml) 2 mg IM Q4H PRN; Protocol PRN Reason: ALCOWD Lorazepam (Lorazepam 2 Mg/Ml Inj 1 Ml) 2 mg IVP PRN PRN; Protocol PRN Reason: WITHDRAWAL Lorazepam (Lorazepam 2 Mg Tablet) 2 mg PO Q4H PRN; Protocol PRN Reason: WITHDRAWAL Metoprolol Tartrate (Metoprolol Tartrate 50 Mg Tablet) 50 mg PO Q12H [facility] Last Admin: 01/28/22 06:33 Dose: 50 mg Mirtazapine (Mirtazapine 15 Mg Tablet) 15 mg PO DAILY [facility] Multivitamins Therapeutic (Multivitamin Therapeutic Tablet) 1 tab PO DAILY [facility] Ondansetron HCl (Ondansetron 2 Mg/Ml Sdv 2 Ml) 4 mg IVP Q8H PRN PRN Reason: vomiting, or N/V if npo Pantoprazole Sodium (Pantoprazole 40 Mg Sdv) 40 mg IVP Q24H [facility] Last Admin: 01/27/22 21:14 Dose: 40 mg Thiamine Mononitrate (Thiamine 100 Mg Tablet) 100 mg PO DAILY [facility] Vitals/I&O/Wt Last Vital Signs Temp 97.5 F L 01/28/22 04:00 Pulse 85 01/28/22 06:00 Resp 14 01/28/22 04:00 BP 123/89 01/28/22 04:00 Pulse Ox 100 01/28/22 04:00 O2 Del Method 01/28/22 04:00 O2 Flow Rate 5 01/28/22 04:00 01/27/22 01/28/22 01/28/22 22:59 06:59 14:59 Intake Total 3139.58 / 3139.58 200 / 3339.58 Output Total 550 / 550 Balance 3139.58 / 3139.58 -350 / 2789.58 Weight last 48 hrs Weight 92.986 kg Physical Exam Narrative: uncomfortable in bed, NARD vs noted heent- nc/at, eomi, anicteric neck supple lungs clear rt, left diminished heart reg abd soft, nt, nd, + bs ext edema and skin breakdown, discoloration of legs neuro- a,a, o x 3 Urinary Catheter Management: Coude: Cath Placed During This Visit: yes Reason for Continuing Indwelling Catheter: Acute Urinary Retention or Obstruction Urinary Catheter Date of Insertion: 01/27/22 Urinary Catheter Time of Insertion: 19:29 Data : 01/27/22 16:56 01/28/22 01:12 Micro: Microbiology 01/27/22 18:55 Blood Culture - Preliminary Blood SPECIMEN COLLECTED 01/27/22 18:50 Blood Culture - Preliminary Blood SPECIMEN COLLECTED A&P Assessment and plan (1) Acute kidney injury: 71 yr old man 1. CORY- baseline cr was 1 in 2020. In 2021 cr was 2.3 in apr 2021 and 1.9 in October 2021- this can be from meds, +/- CRS -ur na 46, bland ua, renal us w/ b/l cysts. -await echo 2. worsening CORY- cr of 5.3 and 4.7 mg/dl now, can be from bactrim, Yanni-i/ ARB, lasix, and potassium- stop these meds -monitor uop and chemistries -cr improving 3. hyponatremia- ur na 46 -normal tsh -await cortisol 4. met acidosis from CORY. check lactate change ivf to LR 5. hyperkalemia- from CORY, bactrim, and he takes po potassium- low k diet 6. replace vit d seen and examined w/ RN- telehealth visit time spent 30 min Plan see above Attestations Medical Necessity Statement*: cory Time Spent in Patient Care: 16 - 35 minutes (>than 50% of time spent in counselling and/or direct pt care on unit). Coding Level of Care Code Acute Twisting Frame Changer for [facility]on Diagnoses Acute kidney injury N17.9
[2022-01-28] MEDS: heparin 5,000 unit/mL INJ 1 mL 5000 UNIT SUBCUT ×2 (07:57→18:26)
[2022-01-28] MEDS: ergocalciferol (vitamin D2) 50,000 Unit Capsule 50000 UNIT PO (07:58)
[2022-01-28] MEDS: lactated ringers 1,000 ML 100 ML IV ×2 (08:01→18:27)
[2022-01-28] MEDS: aspirin 81 mg EC Tablet PO ×2 (08:01→09:30)
--- NOTE | 2022-01-28 08:39 | PC.PHAR ---
pt states he takes care of his own medications-pt states he still has and uses his symbicort inhaler ext med history shows last filled 07/17/21 30d/s-pt states he still takes lasix 20mg daily ext med history shows last filled 11/25/21 30d/s-pt states he still takes gabapentin 300mg bid prn ext med history shows last filled 05/19/21 90d/s-pt states he still has ipratropium-albuterol for his neb machine states the medication is and states he needs a new neb machine ext med history doesnt show when last filled-pt states he has kcl 20meq bid filled 10/31/21 14d/s and mirtazapine 15mg daily but states not taken in months and doesnt plan on taking-notes are made in the pharmacy comments
--- NOTE | 2022-01-28 08:51 | PC.CHAP ---
Pastoral Care Encounter/Spiritual Assessment Type of Contact [] Declined electronic assembly visit [] Patient/Family/Request visit [] Outpatient visit [] Follow-up visit [] Physician referral [] Code/Alert [x] Routine visit [] Staff referral [] Actively dying [] Patient sleeping [] Family support [] [] Out of room [] Palliative care [] [] Receiving care in room [] Pre-surgical visit [] Trauma [] Long length of stay [] ICU visit [] Other: Relational/Emotional Strength [x] Patient feels connected with others/family/visitors/staff [] Distress [] Loneliness/isolation [] Abandonment Spirituality of Patient [] Person of Karlene [] Attends Restorationism of their Karlene [] Believes in Prayer [] Reads Bible or Jew materials [x] There are Spiritual issues to be addressed Bottle Booth Attendant Interventions [] Prayer [x] Active listening [x] Non-anxious presence [x] Spiritual/emotional support [] Crisis/trauma care [] Spiritual counseling [] Bereavement support [] Provided bereavement packet [] Provided Bible/devotional materials [] Provided toy/stuffed animal, coloring book to patient or family member [] Provided Communion [] Anointing/[place] [] Salvation [x] Completed spiritual assessment [] Other: Impact on Illness or Injury [] Angry [] Fearful [] Anxious [] Often cries [] Exhaustion [] Unable to work [] Unable to attend buddhism [] Unable to walk/stand [] Unable to read [] Unable to drive [] Unable to eat/drink [] Unable to sleep [] Unable to be with family [] Patient intubated [] Other: Summary Pt stated he is not a person of karlene but likes congregation. There are so many that he cannot wrap his head around them all. Pt has family, 2 sisters and their spouses, who are visiting him while in hospital and also assist him when he is out. Lives alone with his dog. Time spent with patient 15m
[2022-01-28] MEDS: folic acid 1 mg Tablet PO (09:30)
[2022-01-28] MEDS: multivitamin therapeutic Tablet 1 TAB PO (09:31)
[2022-01-28] MEDS: thiamine 100 mg Tablet PO (09:31)
[2022-01-28] MEDS: mirtazapine 15 mg Tablet PO (09:31)
--- NOTE | 2022-01-28 09:53 | PM.PN ---
Subjective Subjective: Patient was seen this morning, denies any chest pain, no palpitations, denies seeing or hearing things are not there Vitals/I&O/Wt Last Vital Signs Temp 98.2 F 01/28/22 07:43 Pulse 77 01/28/22 07:43 Resp 17 01/28/22 07:43 BP 121/79 01/28/22 07:43 Pulse Ox 94 01/28/22 07:43 O2 Del Method 01/28/22 07:43 O2 Flow Rate 5 01/28/22 07:43 01/27/22 01/28/22 01/28/22 22:59 06:59 14:59 Intake Total 3139.58 / 3139.58 200 / 3339.58 726.25 / 726.25 Output Total 550 / 550 Balance 3139.58 / 3139.58 -350 / 2789.58 726.25 / 726.25 Weight last 48 hrs Weight 92.986 kg Physical Exam Const: COMMON NORMALS: no acute distress and patient oriented x3 Resp: COMMON NORMALS: normal respiratory effort, No retractions, No use of accessory muscles and clear to auscultation bilaterally AUSCULTATION: clear to auscultation bilaterally Cardio: COMMON NORMALS: regular rate, regular rhythm, S1 normal heart sound present and S2 normal heart sound present RATE: regular rate RHYTHM: regular rhythm HEART SOUNDS: S1 normal heart sound present and S2 normal heart sound present GI: COMMON NORMALS: Normal to inspection, nondistended, normoactive bowel sounds present, non-tender and No hepatosplenomegaly present PALPATION: Yes No hepatosplenomegaly present Neuro: COMMON NORMALS: patient oriented x3 Psych: COMMON NORMALS: mental status grossly normal Urinary Catheter Management: Coude: Cath Placed During This Visit: yes Reason for Continuing Indwelling Catheter: Acute Urinary Retention or Obstruction Urinary Catheter Date of Insertion: 01/27/22 Urinary Catheter Time of Insertion: 19:29 Data : 01/27/22 16:56 01/28/22 01:12 Micro: Microbiology 01/27/22 18:55 Blood Culture - Preliminary Blood SPECIMEN COLLECTED 01/27/22 18:50 Blood Culture - Preliminary Blood SPECIMEN COLLECTED A&P Assessment and plan (1) Acute kidney injury: (2) Alcohol abuse: (3) Acute urinary retention: (4) Wound of right foot: (5) Nonhealing wound of heel: (6) PAD (peripheral artery disease): (7) HTN (hypertension): (8) Dyslipidemia: (9) CHF (congestive heart failure): (10) Chest pain: Plan CORY on CKD -Likely related to obstructive uropathy, enlarged prostate -Place Ashley catheter -Start IV fluids -Renal ultrasound 1. Negative for hydronephrosis or renal calculus. 2. Several bilateral renal cysts measuring up to 18 mm on the left. -Consult nephrology Alcohol abuse, with concerns for alcohol withdrawal -History of binge drinking -[facility] protocol -Thiamine, folic acid, IV fluids Hyponatremia acute on chronic related to alcoholism Acute on chronic anemia, monitor, likely related to alcoholism Chest pain, serial EKGs, serial troponins, telemetry monitoring,echo, continue aspirin, statin Peripheral vascular disease -12/09/2021 arterial duplex -1. Severe diffuse nonocclusive disease in the left DPA. 2. Complete occlusion right popliteal artery. 3 Diffuse disease in the left [employer] and dorsalis pedis. 4. Otherwise negative for significant disease in the bilateral leg arterial -Currently lower extremities cool, clammy, I could palpate DP pulses bilaterally, posterior tibial pulses -We will do Dopplers bilateral extremity -No evidence of acute obstruction, was supposed to have a peripheral angiogram today however cannot given his CORY as above -We will continue to monitor, medically optimized, discussed with Dr. 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
[2022-01-28] MEDS: pantoprazole 40 mg SDV IVP (18:26)
[2022-01-28] MEDS: atorvastatin 40 mg Tablet PO (20:17)
[2022-01-29] VITALS (9 sets, daily range): BP systolic 109–141; BP diastolic 68–107; PULSE 83–103; RESP 12–18; TEMP 35.8–37.2; O2SAT 98–100
[2022-01-29] MEDS: LORazepam 2 mg Tablet PO (01:02)
--- NOTE | 2022-01-29 02:14 | PC.NURSE ---
Assisted patient up to BSC. Noted patient to have mottling to bilateral lower extremities.
[2022-01-29 03:02] LABS: Basophils % 0.6 %; Eosinophils # 0.4 10^3/uL (0.0-0.8); Eosinophils % 5.3 %; Hemoglobin 8.7 g/dL (11.7-16.6); Lymphocytes # 0.6 10^3/uL (0.8-4.8); Lymphocytes % 8.9 %; Mean Corpuscular Hemoglobin 30.2 pg (28.0-34.0); Mean Corpuscular Volume 100.7 fl (80-94); Mean Platelet Volume 9.7 fL (7.4-10.4); Monocytes # 1.1 10^3/uL (0.2-0.9); Monocytes % 16.2 %; Neutrophils # 4.53 10^3/uL (1.8-7.7); Neutrophils % 68.5 %; Nucleated Red Blood Cells % 0 %; Platelet Count 143 10^3/cmm (130-400); Red Blood Count 2.88 10^6/uL (4.1-5.3); Red Cell Distribution Width 15.3 % (12.1-15.1); White Blood Count 6.6 10^3/uL (4.0-10.0)
[2022-01-29 03:22] LABS: Alanine Aminotransferase 8 U/L (0-41); Albumin Level 2.9 g/dL (3.5-5.2); Alkaline Phosphatase 91 U/L (40-130); Anion Gap 16.2 (5-19); Aspartate Amino Transferase 13 U/L (0-40); Blood Urea Nitrogen 80 mg/dL (8-23); Calcium 8.6 mg/dL (8.5-10.5); Carbon Dioxide 17 mmol/L (22-29); Chloride 105 mmol/L (98-107); Globulin 3.3 g/dL (1.3-4.6); Glucose 97 mg/dL (65-115); Magnesium 1.7 mg/dL (1.7-2.3); Osmolality Calculated 300 mOsm/kg (285-295); Phosphorus 4.3 mg/dL (2.5-4.5); Potassium 5.2 mmol/L (3.5-5.1); Sodium 133 mmol/L (136-145); Total Bilirubin 0.2 mg/dL (0.15-1.2); Total Protein 6.2 g/dL (6.6-8.7)
--- NOTE | 2022-01-29 04:11 | PC.NURSE ---
Addendum entered by Dalila Betancourt RN 01/29/22 05:00: Bed alarm in use. Original Note: Rounding with patient and patient was found in the floor. Roommate reported patient just fell. Patient was tangled within telemetry cables, avery catheter, SCD cables and blankets. No injuries observed. Patient denies any injuries as well. Noted patient's breathing was becoming more labored and wet sounding. Informed Dr Rothman to report fall. Received order to discontinue IV fluids at this time.
--- NOTE | 2022-01-29 05:10 | PC.NURSE ---
Patient found in the floor. See previous note.
[2022-01-29] MEDS: metoprolol tartrate 50 mg Tablet PO (06:03)
[2022-01-29] MEDS: heparin 5,000 unit/mL INJ 1 mL 5000 UNIT SUBCUT (06:03)
--- NOTE | 2022-01-29 08:41 | P.PN_ITS ---
Subjective Subjective: lethargic. feels better. denies sob Medications: Reviewed: Yes Medication Review Details: Current Medications Acetaminophen (Acetaminophen 325 Mg Tablet) 650 mg PO Q6H PRN PRN Reason: Mild/Mod Pain Or Temp >/= 101 Albuterol/Ipratropium (Ipratropium-Albuterol 3 Ml Neb) 3 ml INHALATION Q6H PRN PRN Reason: SHORTNESS OF BREATH Aspirin (Aspirin 81 Mg Ec Tablet) 81 mg PO DAILY [facility] Last Admin: 01/28/22 09:30 Dose: 81 mg Atorvastatin Calcium (Atorvastatin 40 Mg Tablet) 40 mg PO BEDTIME [facility] Last Admin: 01/28/22 20:17 Dose: 40 mg Ergocalciferol (Ergocalciferol (Vitamin D2) 50,000 Unit Capsule) 50,000 unit PO Q7D [facility] Last Admin: 01/28/22 07:58 Dose: 50,000 unit Folic Acid (Folic Acid 1 Mg Tablet) 1 mg PO DAILY [facility] Last Admin: 01/28/22 09:30 Dose: 1 mg Heparin Sodium (Porcine) (Heparin 5,000 Unit/Ml Inj 1 Ml) 5,000 unit SUBCUT Q12H [facility] Last Admin: 01/29/22 06:03 Dose: 5,000 unit Lorazepam (Lorazepam 2 Mg/Ml Inj 1 Ml) 2 mg IM Q4H PRN; Protocol PRN Reason: ALCOWD Lorazepam (Lorazepam 2 Mg/Ml Inj 1 Ml) 2 mg IVP PRN PRN; Protocol PRN Reason: WITHDRAWAL Lorazepam (Lorazepam 2 Mg Tablet) 2 mg PO Q4H PRN; Protocol PRN Reason: WITHDRAWAL Last Admin: 01/29/22 01:02 Dose: 2 mg Metoprolol Tartrate (Metoprolol Tartrate 50 Mg Tablet) 50 mg PO Q12H [facility] Last Admin: 01/29/22 06:03 Dose: 50 mg Mirtazapine (Mirtazapine 15 Mg Tablet) 15 mg PO DAILY [facility] Last Admin: 01/28/22 09:31 Dose: 15 mg Multivitamins Therapeutic (Multivitamin Therapeutic Tablet) 1 tab PO DAILY [facility] Last Admin: 01/28/22 09:31 Dose: 1 tab Ondansetron HCl (Ondansetron 2 Mg/Ml Sdv 2 Ml) 4 mg IVP Q8H PRN PRN Reason: vomiting, or N/V if npo Pantoprazole Sodium (Pantoprazole 40 Mg Sdv) 40 mg IVP Q24H [facility] Last Admin: 01/28/22 18:26 Dose: 40 mg Thiamine Mononitrate (Thiamine 100 Mg Tablet) 100 mg PO DAILY [facility] Last Admin: 01/28/22 09:31 Dose: 100 mg Vitals/I&O/Wt Last Vital Signs Temp 97.6 F 01/29/22 07:46 Pulse 84 01/29/22 08:19 Resp 16 01/29/22 08:19 BP 110/68 01/29/22 07:54 Pulse Ox 100 01/29/22 08:19 O2 Del Method 01/29/22 08:19 O2 Flow Rate 4 01/29/22 08:19 01/28/22 01/29/22 01/29/22 22:59 06:59 14:59 Intake Total 1480 / 3046.25 1360 / 4406.25 Output Total 450 / 450 600 / 1050 250 / 250 Balance 1030 / 2596.25 760 / 3356.25 -250 / -250 Weight last 48 hrs Weight 92.986 kg Physical Exam Narrative: comfortable in bed, NARD vs noted heent- nc/at, eomi, anicteric neck supple lungs clear rt, left diminished heart reg abd soft, nt, nd, + bs ext dec edema and skin breakdown, discoloration of legs neuro- lethargic Urinary Catheter Management: Coude: Cath Placed During This Visit: yes Reason for Continuing Indwelling Catheter: Acute Urinary Retention or Obstruction Urinary Catheter Date of Insertion: 01/27/22 Urinary Catheter Time of Insertion: 19:29 Data : 01/29/22 02:39 01/29/22 02:39 Micro: Microbiology 01/27/22 18:55 Blood Culture - Preliminary Blood NEGATIVE TO DATE 01/27/22 18:50 Blood Culture - Preliminary Blood NEGATIVE TO DATE A&P Assessment and plan (1) Acute kidney injury: 71 yr old man 1. CORY- baseline cr was 1 in 2020. In 2021 cr was 2.3 in apr 2021 and 1.9 in October 2021- this can be from meds, +/- CRS -ur na 46, bland ua, renal us w/ b/l cysts. -renal fxn is improving -ensure that pt is eating and drinking 2. worsening CORY- cr of 5.3 and 4.7 mg/dl now, can be from bactrim, Yanni-i/ ARB, lasix, and potassium- stop these meds -monitor uop and chemistries -cr improving -start na bicarb pills 3. hyponatremia- ur na 48 -normal tsh -await cortisol -serum na stable 4. met acidosis from CORY. check lactate start na bicarb pills 5. hyperkalemia- from CORY, bactrim, and he takes po potassium- low k diet 6. replace vit d, repeat pth in 4-6 weeks 7. echo-1. Normal left ventricular size, systolic function with no ?diagnostic regional wall motion abnormalities. Left ventricular ?ejection fraction is estimated at 65 %. ?2. Normal right ventricular size and systolic function. ?3.? No prior similar studies to compare. if k, na, cr stable in am then can d/c w/ outpt f/u seen and examined w/ RN- telehealth visit time spent 30 min Plan see above Attestations Medical Necessity Statement*: improving cory, hyperkalemia, met acidosis, hyponatremia Time Spent in Patient Care: 16 - 35 minutes (>than 50% of time spent in counselling and/or direct pt care on unit) . 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
--- NOTE | 2022-01-29 09:30 | PM.DCS ---
Discharge Providers Date of Admission: 01/27/22 18:30 Date of Discharge: January 29, 2022 Attending Provider at Admission: Timi Roque MD Attending Provider at Discharge: Timi Roque MD Primary Care Provider: Timi Roque MD Diagnoses at Discharge Discharge Diagnosis (1) Acute kidney injury: Status: Acute Reason for Visit Reason for Visit: sent by , kidney failure Hospital Course Hospital Course Jamie Davison is a 71 year old male with a past medical history of peripheral vascular disease with plans on peripheral angiography today,, chronic bilateral lower extremity wounds managed through wound care, history of alcoholism, history of CHF, history of bilateral from edema history of chronic kidney disease, history of COPD, history of abdominal aortic aneurysm, hypertension, who presents to [facility] who presents [facility] from my office due to concerns for acute renal failure.? I sent patient in to clinic, as his creatinine was 5.2, patient was supposed to have a peripheral angiogram by Dr. Franco, however he has abnormal labs which I had reviewed and told patient through my nurse to come to the emergency room.? Patient tells me that its been hard to completely empty his bladder recently, he urinates multiple times throughout the day, but never completely empties his bladder.? No flank pain, no fevers, no chills, he has never had any kidney stones.? He denies any history of prostate issues, but tells me he has never been checked for it.? He tells me that he has feelings of incomplete emptying, postvoid dribbling, he urinates multiple times throughout the day which is his normal.? He reports alcoholism, he drinks half a bottle of whiskey at a time, he bridge drinks alcohol, his last binge was on Wednesday, denies a history of alcohol withdrawals, denies a history of withdrawal seizures, denies history of delirium tremens, denies seeing or hearing things are not there.? During my examination his heart rate was were in the 130s, sinus tachycardia, he tells me that he is out of his metoprolol and has not received a refill.? He is taking his medication as prescribed, denies any drug use.? He does report intermittent chest pain,, substernal, nonradiating, no history of cardiovascular disease, history of strokes Patient was admitted to [facility] for CORY on CKD, some degree related to postobstructive related to enlarged prostate, improved with Ashley catheter placement, some related to Bactrim, Lasix, lisinopril, dehydration. Patient was admitted to [facility], received IV fluids, Ashley catheter in place, nephrology consulted clinically monitored. Overall patient kidney function improved, maintain good urine output. Patient's Ashley catheter will be removed, if he passes a voiding trial, discharged on Flomax with a follow-up with Dr. Link as outpatient. Hold Lasix and lisinopril until he sees me in clinic. Avoid Bactrim. Advised to drink plenty of electrolyte balanced fluids. For his history of alcoholism, alcohol abuse, monitor for alcohol withdrawal, minimal alcohol withdrawal symptoms. Advised abstain from alcohol on discharge For acute on chronic hyponatremia, likely beers [place] olimpia, advised to abstain from alcohol consumption Acute on chronic anemia, likely related to alcoholism, continue to monitor Peripheral vascular disease -12/09/2021 arterial duplex -1. Severe diffuse nonocclusive disease in the left DPA. 2. Complete occlusion right popliteal artery. 3 Diffuse disease in the left PASSENGER [place] and dorsalis pedis. 4. Otherwise negative for significant disease in the bilateral leg arterial -Currently lower extremities cool, clammy -Bilateral DP PT pulses palpable, does have's superficial ulcers, which are healing well -No evidence of acute obstruction, was supposed to have a peripheral angiogram today however cannot given his CORY as above -We will continue to monitor, medically optimized, discussed with Dr. Franco patient's kidney function is improved, will have him follow-up with him for peripheral angiogram as outpatient -Patient was advised if you have any alarm symptoms of acute limb ischemia to come back to emergency room immediately, keep lower extremities warm, wear warm socks, monitor for symptomatology, discharged on aspirin, statin Physical Exam Const: COMMON NORMALS: no acute distress and patient oriented x3 Resp: COMMON NORMALS: normal respiratory effort, No retractions, No use of accessory muscles and clear to auscultation bilaterally AUSCULTATION: clear to auscultation bilaterally Cardio: COMMON NORMALS: regular rate, regular rhythm, S1 normal heart sound present and S2 normal heart sound present RATE: regular rate RHYTHM: regular rhythm HEART SOUNDS: S1 normal heart sound present and S2 normal heart sound present GI: COMMON NORMALS: Normal to inspection, nondistended, normoactive bowel sounds present, non-tender and no masses Extremity: COMMON NORMALS: no pedal edema NARRATIVE EXTREMITY EXAM: Bilateral lower extremities, cool to touch Does have capillary refill bilateral lower extremities Bilateral DP PT pulses palpable, but diminished Neuro: COMMON NORMALS: patient oriented x3 Psych: COMMON NORMALS: mental status grossly normal Urinary Catheter Management: Coude: Cath Placed During This Visit: yes Reason for Continuing Indwelling Catheter: Acute Urinary Retention or Obstruction Urinary Catheter Date of Insertion: 01/27/22 Urinary Catheter Time of Insertion: 19:29 Discharge Data Studies Completed and Pending Completed Studies During Hospitalization Category Date Time Status XR chest 1V portable [id number] Stat Exams 01/27/22 16:45 [place] [id number] Stat Ultrasound 01/27/22 17:47 Completed CV. echo complete* [id number] Stat Ultrasound 01/27/22 17:47 Completed US renal BI* [id number] Stat Ultrasound 01/27/22 17:28 Completed Pending at discharge Category Date Time Status RYAN Profile Rheumatology Stat Lab 01/27/22 18:50 Received Anti Double Stranded DNA AB Routine Lab 01/27/22 18:50 Received Anti-Neutrophil Cytoplasmic AB Routine Lab 01/27/22 18:50 Received Blood Culture Routine Lab 01/27/22 18:55 Results Complete Blood Count w/Auto AM LABS Lab 01/30/22 04:00 Ordered Complete Blood Count w/Auto AM LABS Lab 01/31/22 04:00 Ordered Comprehensive Metabolic Panel AM LABS Lab 01/30/22 04:00 Ordered Comprehensive Metabolic Panel AM LABS Lab 01/31/22 04:00 Ordered Immunofixation Serum Stat Lab 01/27/22 18:50 Received Magnesium AM LABS Lab 01/30/22 04:00 Ordered Magnesium AM LABS Lab 01/31/22 04:00 Ordered Phosphorus AM LABS Lab 01/30/22 04:00 Ordered Phosphorus AM LABS Lab 01/31/22 04:00 Ordered Serum Protien Electrophoresis [Total Protein Lab 01/27/22 18:50 Received Electrophoresis] Routine Radiology Impressions Chest X-Ray 01/27/22 16:45 IMPRESSION: 1. Negative for infiltrate. 2. Emphysematous changes. 3. Bibasilar atelectasis. Renal Ultrasound 01/27/22 17:28 IMPRESSION: 1. Negative for hydronephrosis or renal calculus. 2. Several bilateral renal cysts measuring up to 18 mm on the left. Venous Duplex 01/27/22 17:47 IMPRESSION: No evidence of deep vein thrombosis. Laboratory Results WBC 6.6 10^3/uL (4.0-10.0) 01/29/22 02:39 RBC 2.88 10^6/uL (4.1-5.3) L 01/29/22 02:39 Hgb 8.7 g/dL (11.7-16.6) L 01/29/22 02:39 Hct 29.0 % (42.0-52.0) L 01/29/22 02:39 MCV 100.7 fl (80-94) H 01/29/22 02:39 MCH 30.2 pg (28.0-34.0) 01/29/22 02:39 MCHC 30.0 g/dL (30.0-36.0) 01/29/22 02:39 RDW 15.3 % (12.1-15.1) H 01/29/22 02:39 Plt Count 143 10^3/cmm (130-400) 01/29/22 02:39 MPV 9.7 fL (7.4-10.4) 01/29/22 02:39 Neut % (Auto) 68.5 % 01/29/22 02:39 Lymph % (Auto) 8.9 % 01/29/22 02:39 George % (Auto) 16.2 % 01/29/22 02:39 Eos % (Auto) 5.3 % 01/29/22 02:39 Baso % (Auto) 0.6 % 01/29/22 02:39 Neut # (Auto) 4.53 10^3/uL (1.8-7.7) 01/29/22 02:39 Lymph # (Auto) 0.6 10^3/uL (0.8-4.8) L 01/29/22 02:39 George # (Auto) 1.1 10^3/uL (0.2-0.9) H 01/29/22 02:39 Eos # (Auto) 0.4 10^3/uL (0.0-0.8) 01/29/22 02:39 Baso # (Auto) 0.0 10^3/uL (0.0-0.1) 01/29/22 02:39 Nucleated RBC % (auto) 0 % 01/29/22 02:39 Nucleated RBCs # 0.0 /100WBC 01/29/22 02:39 PT 15.40 SECONDS (12.1-14.9) H 01/28/22 01:12 INR 1.19 (0.8-1.2) 01/28/22 01:12 Sodium 133 mmol/L (136-145) L 01/29/22 02:39 Potassium 5.2 mmol/L (3.5-5.1) H 01/29/22 02:39 Chloride 105 mmol/L (98-107) 01/29/22 02:39 Carbon Dioxide 17 mmol/L (22-29) L 01/29/22 02:39 Anion Gap 16.2 (5-19) 01/29/22 02:39 BUN 80 mg/dL (8-23) H 01/29/22 02:39 Creatinine 3.2 mg/dL (0.7-1.2) H 01/29/22 02:39 GFR Calculation Not Reportable 01/29/22 02:39 Glucose 97 mg/dL (65-115) 01/29/22 02:39 Estimat Average Glucose 94 01/27/22 18:50 Hemoglobin A1c 4.9 % (4.0-6.0) 01/27/22 18:50 Calculated Osmolality 300 mOsm/kg (285-295) H 01/29/22 02:39 Lactic Acid 1.8 mmol/L (0.5-2.2) 01/27/22 18:50 Uric Acid 8.9 mg/dL (3.4-7.0) H 01/27/22 18:50 Uric Acid Cancelled 01/27/22 18:50 Calcium 8.6 mg/dL (8.5-10.5) 01/29/22 02:39 Phosphorus 4.3 mg/dL (2.5-4.5) 01/29/22 02:39 Magnesium 1.7 mg/dL (1.7-2.3) 01/29/22 02:39 Total Bilirubin 0.2 mg/dL (0.15-1.2) 01/29/22 02:39 AST 13 U/L (0-40) 01/29/22 02:39 ALT 8 U/L (0-41) 01/29/22 02:39 Alkaline Phosphatase 91 U/L (40-130) 01/29/22 02:39 Creatine Kinase 46 U/L (39-308) 01/27/22 18:50 Troponin T Baseline 41 ng/L (0-15) H 01/27/22 18:50 Troponin T 120 Minute 42.26 ng/L (0-15) H 01/27/22 21:06 Delta Troponin T 1.26 ABS# (0-10) 01/27/22 21:06 Troponin T Hi Sens 6Hr 42.28 ng/L (0-15) H 01/28/22 01:12 Troponin T Hi Sens 6Hr Delta 1.28 ng/L (0-12) 01/28/22 01:12 C-Reactive Protein 27.0 mg/L (0.0-4.9) H 01/27/22 18:50 NT-Pro-B Natriuret Pep 2965 pg/mL (0-125) H 01/27/22 18:50 Total Protein 6.2 g/dL (6.6-8.7) L 01/29/22 02:39 Albumin 2.9 g/dL (3.5-5.2) L 01/29/22 02:39 Globulin 3.3 g/dL (1.3-4.6) 01/29/22 02:39 Triglycerides 69 mg/dL (0-150) 01/27/22 18:50 Cholesterol 114 mg/dL (0-200) 01/27/22 18:50 LDL Cholesterol, Calc 46 mg/dL (50-129) L 01/27/22 18:50 HDL Cholesterol 54 mg/dL (60-100) L 01/27/22 18:50 LDL/HDL Ratio 0.85 RATIO (0.00-3.22) 01/27/22 18:50 Cholesterol/HDL Ratio 2.11 mg/dL (1.0-5.00) 01/27/22 18:50 25-OH Vitamin D Total 12 ng/mL (30-100) L 01/28/22 01:12 Procalcitonin 0.19 ng/mL (0-0.5) 01/27/22 18:50 TSH 0.77 uIU/mL (0.27-4.20) 01/28/22 01:12 PTH Intact 109.2 pg/mL (15-65) H 01/28/22 01:12 Calcium (PTH Intact) 8.4 mg/dL (8.5-10.5) L 01/28/22 01:12 Random Cortisol 12.94 ug/dL (2.47-19.5) 01/28/22 01:12 Urine Color Cancelled 01/27/22 19:50 Urine Color Yellow (Yellow) 01/27/22 19:50 Urine Appearance Cancelled 01/27/22 19:50 Urine Appearance Clear (CLEAR) 01/27/22 19:50 Urine pH 5 (5-7) 01/27/22 19:50 Urine pH Cancelled 01/27/22 19:50 Ur Specific Belk 1.020 (1.005-1.030) 01/27/22 19:50 Ur Specific Belk Cancelled 01/27/22 19:50 Urine Protein Cancelled 01/27/22 19:50 Urine Protein Neg (Negative) 01/27/22 19:50 Urine Glucose (UA) Cancelled 01/27/22 19:50 Urine Glucose (UA) Norm (Normal) 01/27/22 19:50 Urine Ketones Cancelled 01/27/22 19:50 Urine Ketones Negative (Negative) 01/27/22 19:50 Urine Blood Cancelled 01/27/22 19:50 Urine Blood Neg (Negative) 01/27/22 19:50 Urine Nitrate Cancelled 01/27/22 19:50 Urine Nitrate Negative (Negative) 01/27/22 19:50 Urine Bilirubin Cancelled 01/27/22 19:50 Urine Bilirubin Neg (Negative) 01/27/22 19:50 Prot Sulfosalicylic Acd Cancelled 01/27/22 19:50 Urine Urobilinogen Cancelled 01/27/22 19:50 Urine Urobilinogen Norm mg/dL (Negative) 01/27/22 19:50 Ur Leukocyte Esterase Cancelled 01/27/22 19:50 Ur Leukocyte Esterase Negative (Negative) 01/27/22 19:50 Urine RBC Cancelled 01/27/22 19:50 Urine WBC Cancelled 01/27/22 19:50 Ur Squamous Epith Cells Cancelled 01/27/22 19:50 Ur Transition Epith Cell Cancelled 01/27/22 19:50 Ur Renal Epithelial Cell Cancelled 01/27/22 19:50 Calcium Oxalate Crystal Cancelled 01/27/22 19:50 Uric Acid Crystals Cancelled 01/27/22 19:50 Triple Phos Crystals Cancelled 01/27/22 19:50 Other Crystals Cancelled 01/27/22 19:50 Amorphous Sediment Cancelled 01/27/22 19:50 Urine Bacteria Cancelled 01/27/22 19:50 Hyaline Casts Cancelled 01/27/22 19:50 Fine Granular Casts Cancelled 01/27/22 19:50 Coarse Granular Casts Cancelled 01/27/22 19:50 RBC Casts Cancelled 01/27/22 19:50 Other Casts Cancelled 01/27/22 19:50 Urine Mucus Cancelled 01/27/22 19:50 Urine Trichomonas Cancelled 01/27/22 19:50 Urine Yeast Cancelled 01/27/22 19:50 Urine Sperm Cancelled 01/27/22 19:50 Ur Oval Fat Bodies Cancelled 01/27/22 19:50 Ur Random Sodium 48 mmol/L 01/27/22 19:50 Ur Random Sodium 48 mmol/L 01/27/22 19:50 Ur Random Potassium 27 mmol/L 01/27/22 19:50 Ur Random Chloride 43 mmol/L 01/27/22 19:50 Urine Creatinine 133 mg/dL (39-259) 01/27/22 19:50 Urine Opiates Screen Negative ng/mL (Negative) 01/27/22 19:50 Ur Barbiturates Screen Negative ng/mL (Negative) 01/27/22 19:50 Ur Phencyclidine Scrn Negative ng/mL (Negative) 01/27/22 19:50 Ur Amphetamines Screen Negative ng/mL (Negative) 01/27/22 19:50 U Benzodiazepines Scrn Negative ng/mL (Negative) 01/27/22 19:50 Urine Cocaine Screen Negative ng/mL (Negative) 01/27/22 19:50 U Marijuana (THC) Screen Negative ng/mL (Negative) 01/27/22 19:50 Ethyl Alcohol < 10 mg/dL (0-10) 01/27/22 18:50 Hepatitis C Antibody Cancelled 01/27/22 18:50 Hepatitis C Antibody Non-reactive (Nonreactive) 01/27/22 18:50 Vitals Last Vital Signs Temp 97.6 F 01/29/22 07:46 Pulse 84 01/29/22 08:19 Resp 16 01/29/22 08:19 BP 110/68 01/29/22 07:54 Pulse Ox 100 01/29/22 08:19 O2 Del Method 01/29/22 08:19 O2 Flow Rate 4 01/29/22 08:19 Discharge Plan Discharge Patient Disposition: Home Condition: Stable Prescriptions: New thiamine mononitrate (vit B1) [Vitamin B-1 (mononitrate)] 100 mg Tablet 100 mg PO DAILY 30 Days Qty: 30 0RF atorvastatin 40 mg Tablet 40 mg PO BEDTIME 30 Days Qty: 30 0RF tamsulosin [Flomax] 0.4 mg capsule 0.4 mg PO DAILY 30 Days Qty: 30 0RF folic acid 1 mg Tablet 1 mg PO DAILY 30 Days Qty: 30 0RF multivitamin with folic acid [Thera] 400 mcg Tablet 1 tab PO DAILY 30 Days Qty: 30 0RF aspirin 81 mg Tablet,Delayed Release (Dr/Ec) 81 mg PO DAILY 30 Days Qty: 30 0RF Continued montelukast [Singulair] 10 mg tablet 10 mg PO DAILY tizanidine 4 mg capsule 4 mg PO Q8H PRN (Reason: Muscle Spasm) fluticasone propionate [Flonase Allergy Relief] 50 mcg/actuation spray,suspension 2 spray INTRANASAL DAILY PRN (Reason: Allergy Symptoms) Rx Instructions: administer into each nostril budesonide-formoterol [Symbicort] 160-4.5 mcg/actuation HFA aerosol inhaler 2 puff INHALATION BID albuterol sulfate [Ventolin HFA] 90 mcg/actuation HFA aerosol inhaler 2 puff INHALATION Q4H PRN (Reason: Shortness Of Breath) ipratropium-albuterol 0.5 mg-3 mg(2.5 mg base)/3 mL solution for nebulization 3 ml INHALATION Q6H PRN (Reason: Shortness Of Breath) metoprolol tartrate 50 mg tablet 50 mg PO BID multivitamin Tablet 1 tab PO DAILY PRN (Reason: unknown) Magtab 84 mg tablet extended release 84 mg PO .3-4 TIMES A WEEK Changed gabapentin 300 mg capsule 300 mg PO DAILY Qty: 30 0RF Held lisinopril 20 mg tablet 20 mg PO DAILY Qty: 90 3RF Hold Instructions: Resume on 02/07/22. hold until seen by primary care furosemide 20 mg tablet 20 mg PO DAILY Hold Instructions: Resume on 02/07/22. hold until seen by primary care Discontinued atorvastatin 40 mg tablet 40 mg PO DAILY Qty: 30 0RF aspirin 325 mg Tablet 325 mg PO Q6H PRN (Reason: Pain) Discharge Orders: Discharge Order (Routine); Ordered 01/29/22 Ordered By: Timi Roque Other Ambulatory Orders: DME: Hussein (Order) Location: None Selected Ordered By: Timi Roque Referrals: Bonilla Franco MD [Physician] - 1 week Juan Link MD [Physician] - 1 week (urinary retentionb) Timi Roque MD [Primary Care Provider] - 1-3 days Discharge Diet: Cardiac Discharge Activity: Resume usual activity Patient Instructions: Opioid Safety, Pain Management Activity Restrictions/Additional Instructions: - Please continue to hydrate well -Please abstain from alcohol consumption -Hold Lasix and lisinopril indefinitely until you see me in clinic next week -Please keep bilateral extremities warm, wear socks, if you suddenly have pain, lack of sensation, sudden coolness of lower extremities go to emergency room as this is an indicator of acute ischemia Discharge Attestations Time Spent in Discharge Care*: less than 30 min Quality Metrics Clinical Quality Measures [ No reported AMI, CVA or VTE this stay] Coding Level of Care Code Acute Chg FW VIC note Diagnoses Acute kidney injury N17.9
[2022-01-29] MEDS: folic acid 1 mg Tablet PO (09:49)
[2022-01-29] MEDS: thiamine 100 mg Tablet PO (09:49)
[2022-01-29] MEDS: multivitamin therapeutic Tablet 1 TAB PO (09:49)
[2022-01-29] MEDS: sodium bicarbonate 650 mg Tablet PO ×2 (09:49→15:36)
[2022-01-29] MEDS: mirtazapine 15 mg Tablet PO (09:49)
[2022-01-29] MEDS: tamsulosin 0.4 mg Capsule PO (09:51)
[2022-01-29 10:03] LABS: CENTROMERE B ANTIBODY <1.0 NEG AI (<1.0 NEG); JO-1 ANTIBODY <1.0 NEG AI (<1.0 NEG); RNP ANTIBODY <1.0 NEG AI (<1.0 NEG); SCL-70 ANTIBODY <1.0 NEG AI (<1.0 NEG); SJOGREN'S ANTIBODY (SS-A) <1.0 NEG AI (<1.0 NEG); SM ANTIBODY <1.0 NEG AI (<1.0 NEG); SS-B <1.0 NEG AI (<1.0 NEG)
[2022-01-29 12:53] LABS: Anti-Double Strand DNA AB <1 IU/mL
[2022-01-29 15:08] LABS: THYROID PEROXIDASE ANTIBODIES <1 IU/mL (<9)
[2022-01-29 16:08] LABS: ALPHA 1 GLOBULIN 0.5 g/dL (0.2-0.3); ALPHA 2 GLOBULIN 0.8 g/dL (0.5-0.9); BETA 1 GLOBULIN 0.4 g/dL (0.4-0.6); BETA 2 GLOBULIN 0.5 g/dL (0.2-0.5); GAMMA GLOBULIN 0.9 g/dL (0.8-1.7)
--- NOTE | 2022-01-29 16:22 | PC.OT ---
OT TREATMENT HELD PATIENT IS SCHEDULED FOR DISCHARGE.
[2022-01-30 12:11] LABS: COMPLEMENT COMPONENT C3C 121 mg/dL (82-185); COMPLEMENT COMPONENT C4C 33 mg/dL (15-53)
[2022-01-30 13:33] LABS: COMPLEMENT, TOTAL (CH50) >60 U/mL (31-60)
[2022-01-31 15:17] LABS: ANCA Screen NEGATIVE (NEGATIVE)
[2022-01-31 15:32] LABS: DNA AB (DS) CRITHIDIA,IFA NEGATIVE (NEGATIVE)
[2022-02-02 10:28] LABS: ANA PATTERN Nuclear, Homogeneous; ANA SCREEN, IFA POSITIVE (NEGATIVE)
== END 2022-01-29 17:10 | disposition home health service (06) | DRG 683 ==
LOC: ER 17:41 → MEDSURG 18:32
PROVIDERS: Internal Medicine Nephrology; Admitting Provider Family Medicine; Emergency Provider Family Medicine; PCP Family Medicine; Visit Provider Family Medicine
DX: N17.9 Acute kidney failure, unspecified (principal); E87.1 Hypo-osmolality and hyponatremia; N13.8 Other obstructive and reflux uropathy; E87.20 Acidosis, unspecified; I13.0 Hypertensive heart and chronic kidney disease with heart failure and stage 1 through stage 4 chronic kidney disease, or unspecified chronic kidney disease; N40.1 Benign prostatic hyperplasia with lower urinary tract symptoms; R33.8 Other retention of urine; D64.9 Anemia, unspecified; Z79.82 Long term (current) use of aspirin; F10.10 Alcohol abuse, uncomplicated; I73.9 Peripheral vascular disease, unspecified; E78.5 Hyperlipidemia, unspecified; I71.40 Abdominal aortic aneurysm, without rupture, unspecified; E87.5 Hyperkalemia; I50.9 Heart failure, unspecified; N18.9 Chronic kidney disease, unspecified
CPT/HCPCS: 36415; 51702; 51798; 71045; 76770; 80048; 80053; 80061; 80306; 80307; 81003; 82306; 82310; 82436; 82533; 82550; 82570; 83036; 83605; 83735; 83880; 83970; 84100; 84133; 84145; 84155; 84165; 84300; 84443; 84484; 84550; 85025; 85610; 86036; 86140; 86160; 86162; 86225; 86235; 86255; 86334; 86376; 86803; 87040; 93005; 93306; 93970; 94664; 96365; 96366; 96372; 96375; 97110; 97161; 97166; 99285; C9113; J1644; J3411; J3475; J7030; J7120; Q3014

== ENCOUNTER → 2022-02-03 10:16 | Outpatient (BNVA) | payer MEDICARE, SELFPAY | PROVIDERS: PCP Family Medicine; Visit Provider Nurse Practitioner Family | DX: I73.9 Peripheral vascular disease, unspecified (principal); E78.5 Hyperlipidemia, unspecified | CPT/HCPCS: 36415; 80048; 83880; 99213; 99214 ==

== ENCOUNTER 2022-02-05 14:55 | Inpatient (IN) | payer MEDICARE, SELFPAY ==
[2022-02-05] VITALS (14 sets, daily range): BP systolic 111–148; BP diastolic 73–108; PULSE 70–87; RESP 14–22; TEMP 36.4–36.9; O2SAT 92–100; BMI 27.0
--- NOTE | 2022-02-05 14:57 | W.ED.SOB ---
HPI - SOB/Dyspnea General: Chief Complaint: Shortness of Breath/Dyspnea Stated Complaint: SOB Time Seen by Provider: 02/05/22 14:57 History of Present Illness: HPI Narrative: Mr. Davison is a 71-year-old gentleman with history of hypertension, hyperlipidemia, CHF, recent hospitalization for CORY, COPD with chronic hypoxic respiratory failure presenting to the emergency department due to shortness of breath. Reports worsening symptoms for about 2 weeks however markedly worse over the past 2 days. Does have associated cough and dyspnea on exertion which has become severe. Baseline oxygen requirement though feels subjectively like he is needed to turn it up. Course has worsened. Intensity is moderate to severe. No other specific changes in health, exacerbating, or alleviating factors identified. Onset (ago): week(s) Timing: progressively worsening Severity: severe Exacerbating factors: lying flat and exertion Relieving factors: nothing Known history of: COPD, congestive heart failure and other Associated symptoms: Reports cough Review of Systems General: Reports: 10 or more systems reviewed and unremarkable except in HPI and below PFSH ED PFSH: Medical History (Updated 02/13/22 @ 12:58 by Timi Roque MD) AAA (abdominal aortic aneurysm) CHF (congestive heart failure) COPD (chronic obstructive pulmonary disease) Dyslipidemia HTN (hypertension) PAD (peripheral artery disease) Surgical History Hx of aorto-femoral bypass Hx of hand surgery Previous back surgery Family History Father Hypertension CAD (coronary artery disease) Myocardial infarction Stroke Mother Cancer Denies family history of Diabetes Clotting disorder Dementia Chronic kidney disease (CKD) Suicide Anesthesia complication Bleeding disorder Lung disease Social History Smoking and tobacco status: former smoker Quit status (tobacco): has quit using tobacco Year quit tobacco: 2012 Alcohol intake: current Alcohol intake frequency: 0-2 Drinks per Day Lives independently: Yes Housing: House Physical Exam Const: COMMON NORMALS: alert GENERAL APPEARANCE: cooperative, well developed and ill appearing HENMT: COMMON NORMALS: normocephalic and atraumatic HEAD & SCALP: normocephalic and atraumatic THROAT: posterior oropharynx normal Eye: COMMON NORMALS: conjunctivae normal CONJUNCTIVA: Yes conjunctivae normal SCLERA: sclerae normal Neck/C-Spine: COMMON NORMALS: supple GENERAL: Yes trachea midline Resp: EFFORT & INSPECTION: Yes able to speak in complete sentences and Yes tachypneic AUSCULTATION: crackles Cardio: COMMON NORMALS: regular rate and regular rhythm RATE: regular rate RHYTHM: regular rhythm GI: COMMON NORMALS: Soft to palpation PALPATION: Yes Soft to palpation and No Tenderness to palpation present (GI) Extremity: GENERAL: Yes normal exam except as noted and Yes edema Neuro: COMMON NORMALS: moves all extremities SENSORIUM/ORIENTATION: Yes alert and No Orientation impaired Psych: COMMON NORMALS: mental status grossly normal and Normal thought process present THOUGHT PROCESS: Normal thought process present Course Vital Signs: Vital signs: Vital Signs Temperature 98.7 F 02/14/22 19:49 Pulse Rate 83 02/14/22 20:00 Respiratory Rate 16 02/14/22 20:00 Blood Pressure 151/99 02/14/22 19:49 Pulse Oximetry 94 02/14/22 20:00 Oxygen Delivery Me thod 02/14/22 20:00 Oxygen Flow Rate 5 02/14/22 20:00 Fraction of Inspir ed Oxygen 4 02/14/22 08:00 MDM - SOB/Dyspnea Medical Decision Making 71-year-old gentleman presenting with shortness of breath with new oxygen requirement. Nontoxic in appearance though does have increased respiratory effort. EKG shows sinus rhythm with nonspecific ST segment abnormalities, no STEMI. Labs with no leukocytosis, macrocytic anemia again noted. Mild respiratory acidosis noted. Mild hyperkalemia again present. Delta troponin is negative. BNP significantly elevated. Chest x-ray with no lobar consolidation or pneumothorax. Patient given treatment for COPD exacerbation as well as heart failure exacerbation. Mostly etiology of patient symptoms is heart failure exacerbation with evidence of volume overload. Additional component of COPD exacerbation also likely present given new oxygen requirement. The results of ED evaluation were discussed with the patient including plan for admission due to requirement for level of care not available if discharged to prevent significant worsening/deterioration. Patient agreeable with plan. Discussed with hospitalist service who was agreeable to admit patient. Medical Records I reviewed the patient's medical records. Lab Data I reviewed the patient's lab results. 02/14/22 02:18 02/14/22 02:18 Labs/Radiology: Radiology Impressions Chest X-Ray 02/07/22 20:06 IMPRESSION: Streaky opacities at the lung bases are nonspecific. Differential includes scar tissue, atelectasis, and or pneumonia. Gastrografin Study 02/13/22 00:00 IMPRESSION: 1. Persistent focal collection of contrast in the in the gastric antrum suspicious for an antral ulcer. No perforation or gastric outlet obstruction noted. 2. Prominent diverticulum of the third segment of the duodenum with filling defect which may be retained food. 3. Probable mild gastritis. Mild esophageal spasm. 4. Probable mild aneurysmal dilatation of the distal abdominal aorta. This could be assessed more accurately with ultrasound if thought to be clinically warranted. Laboratory Results WBC 11.0 10^3/uL (4.0-10.0) H 02/10/22 04:29 RBC 2.45 10^6/uL (4.1-5.3) L 02/10/22 04:29 Hgb 7.5 g/dL (11.7-16.6) L 02/10/22 04:29 Hct 23.0 % (42.0-52.0) L 02/10/22 04:29 MCV 93.9 fl (80-94) 02/10/22 04:29 MCH 30.6 pg (28.0-34.0) 02/10/22 04:29 MCHC 32.6 g/dL (30.0-36.0) 02/10/22 04:29 RDW 15.4 % (12.1-15.1) H 02/10/22 04:29 Plt Count 280 10^3/cmm (130-400) 02/10/22 04:29 MPV 10.0 fL (7.4-10.4) 02/10/22 04:29 Neut % (Auto) 92.9 % 02/10/22 04:29 Lymph % (Auto) 3.0 % 02/10/22 04:29 [place] % (Auto) 3.4 % 02/10/22 04:29 Eos % (Auto) 0.0 % 02/10/22 04:29 Baso % (Auto) 0.1 % 02/10/22 04:29 Reticulocyte % (Auto) 2.1 % (0.5-2.0) H 02/09/22 09:28 Neut # (Auto) 10.25 10^3/uL (1.8-7.7) H 02/10/22 04:29 Lymph # (Auto) 0.3 10^3/uL (0.8-4.8) L 02/10/22 04:29 [place] # (Auto) 0.4 10^3/uL (0.2-0.9) 02/10/22 04:29 Eos # (Auto) 0.0 10^3/uL (0.0-0.8) 02/10/22 04:29 Baso # (Auto) 0.0 10^3/uL (0.0-0.1) 02/10/22 04:29 Nucleated RBC % (auto) 0 % 02/10/22 04: Nucleated RBCs # 0.0 /100WBC 02/10/22 04:29 D-Dimer 4.68 ug/mIFEU (0-0.59) H 02/05/22 21:34 Specimen Type Arterial 02/05/22 15:18 Sample Site Radial, right 02/05/22 15:18 ABG pH 7.30 (7.35-7.45) L 02/05/22 15:18 ABG pCO2 43.7 mmHg (35-45) 02/05/22 15:18 ABG pO2 68.4 mmHg (80.0-100.0) L 02/05/22 15:18 ABG HCO3 21.3 mmol/L (22-26) L 02/05/22 15:18 ABG Base Excess -4.9 mmol/L (-2.0-2.0) L 02/05/22 15:18 Alberto Test Pos 02/05/22 15:18 Hematocrit 26.0 % (42-52) L 02/05/22 15:18 Hgb O2 Saturation 91.2 % (95-100) L 02/05/22 15:18 Carboxyhemoglobin 1.3 %THgb (0.4-20.1) 02/05/22 15:18 Methemoglobin 0.9 % (0.4-1.5) 02/05/22 15:18 Total Hemoglobin 8.5 g/dL (14-18) L 02/05/22 15:18 O2 Delivery Device Nc 02/05/22 15:18 O2 Liters/Min 4.0 % 02/05/22 15:18 FiO2 36.0 % 02/05/22 15:18 Commercial Lines Sales Executive ID Cak 02/05/22 15:18 Sodium 132 mmol/L (136-145) L 02/10/22 04:29 Potassium 4.5 mmol/L (3.5-5.1) 02/10/22 04:29 Chloride 93 mmol/L (98-107) L 02/10/22 04:29 Carbon Dioxide 28 mmol/L (22-29) 02/10/22 04:29 Anion Gap 15.5 (5-19) 02/10/22 04:29 BUN 35 mg/dL (8-23) H 02/10/22 04:29 Creatinine 1.3 mg/dL (0.7-1.2) H 02/10/22 04:29 GFR Calculation Not Reportable 02/10/22 04:29 Glucose 122 mg/dL (65-115) H 02/10/22 04:29 Calculated Osmolality 283 mOsm/kg (285-295) L 02/10/22 04:29 Lactic Acid 1.4 mmol/L (0.5-2.2) 02/05/22 15:00 Calcium 9.1 mg/dL (8.5-10.5) 02/10/22 04:29 Phosphorus 4.4 mg/dL (2.5-4.5) 02/10/22 04:29 Magnesium 1.8 mg/dL (1.7-2.3) 02/10/22 04:29 Iron 64 ug/dL (59-158) 02/09/22 09:28 Ferritin 302 ng/mL (30-400) 02/09/22 09:28 Total Bilirubin 0.2 mg/dL (0.15-1.2) 02/10/22 04:29 AST 16 U/L (0-40) 02/10/22 04:29 ALT 9 U/L (0-41) 02/10/22 04:29 Alkaline Phosphatase 60 U/L (40-130) 02/10/22 04:29 Troponin T Baseline 27 ng/L (0-15) H 02/10/22 09:03 Troponin T 120 Minute 28.03 ng/L (0-15) H 02/10/22 11:03 Delta Troponin T 1.03 ABS# (0-10) 02/10/22 11:03 Troponin T Hi Sens 6Hr 37.15 ng/L (0-15) H 02/05/22 21:34 Troponin T Hi Sens 6Hr Delta -3.85 ng/L (0-12) L 02/05/22 21:34 NT-Pro-B Natriuret Pep 33094 pg/mL (0-125) H 02/10/22 04:29 Total Protein 6.6 g/dL (6.6-8.7) 02/10/22 04:29 Albumin 3.7 g/dL (3.5-5.2) 02/10/22 04:29 Globulin 2.9 g/dL (1.3-4.6) 02/10/22 04:29 Urine Color Yellow (Yellow) 02/08/22 02:01 Urine Appearance Clear (CLEAR) 02/08/22 02:01 Urine pH 5 (5-7) 02/08/22 02:01 Ur Specific [place] 1.010 (1.005-1.030) 02/08/22 02:01 Urine Protein Neg (Negative) 02/08/22 02:01 Urine Glucose (UA) Norm (Normal) 02/08/22 02:01 Urine Ketones Negative (Negative) 02/08/22 02:01 Urine Blood Neg (Negative) 02/08/22 02:01 Urine Nitrate Negative (Negative) 02/08/22 02:01 Urine Bilirubin Neg (Negative) 02/08/22 02:01 Urine Urobilinogen Norm mg/dL (Negative) 02/08/22 02:01 Ur Leukocyte Esterase Negative (Negative) 02/08/22 02:01 Urine RBC None /hpf (0-2) 02/08/22 02:01 Urine WBC None /hpf (0-5) 02/08/22 02:01 Ur Squamous Epith Cells 0-4 /hpf (0-5) H 02/08/22 02:01 Amorphous Sediment Not Reportable 02/08/22 02:01 Urine Bacteria None /hpf (NONE) 02/08/22 02:01 Coronavirus 229E (PCR) Not detected (NOT DETECT) 02/05/22 15:38 SARS-CoV-2 (PCR) Not detected (NOT DETECT) 02/05/22 15:38 Discharge Plan Discharge Patient Disposition: Placed in Observation Admit Provider: Alejo Palmer Clinical Impression: Acute exacerbation of chronic obstructive airways disease, CHF (congestive heart failure) Coding Level of Care Code ED Aircraft Landing Gear Inspector for Selvin Weston
--- NOTE | 2022-02-05 15:10 | XRR_ITS ---
PROCEDURE INFORMATION: Exam: XR Chest Exam date and time: 02/05/2022 4:36 PM Age: 71 years old Clinical indication: Shortness of breath; Additional info: SOB TECHNIQUE: Imaging protocol: Radiologic exam of the chest. Views: 1 view. COMPARISON: CR (CHEST, ) 01/27/2022 5:02 PM FINDINGS: Lungs: Low lung volumes seen. The lungs are otherwise clear No consolidation. A right upper lobe granuloma is seen. This finding is stable since prior examination Pleural spaces: There is elevated left hemidiaphragm. The No pleural effusion. No pneumothorax. Heart/Mediastinum: Unremarkable. No cardiomegaly. Bones/joints: Unremarkable. XR/XR chest 1V portable [id number] IMPRESSION: No acute findings. Stable right upper lobe granuloma
--- NOTE | 2022-02-05 15:10 | ECG_ITS ---
[facility] Test Date: 2022-02-05 Pat Name: Jamie Davison Department: Room: Gender: Male Patient Financial Services Specialist: : 1950 Requested By: Dell Zamora Order Number: [id number] Bob MD: Noel Mcclure M.D. Measurements Intervals [place] Rate: 72 P: 61 SD: 246 QRS: 34 QRSD: 85 T: 32 QT: 399 QTc: 438 Interpretive Statements SINUS RHYTHM WITH FIRST DEGREE AV BLOCK MODERATE T-WAVE ABNORMALITY, CONSIDER ANTERIOR ISCHEMIA [-0.1+ mV T-WAVE IN V3/V4] Compared to ECG 01/28/2022 00:26:51 T-wave abnormality now present Possible ischemia now present Ectopic atrial rhythm no longer present Electronically Signed On 02-07-2022 14:03:18 PANTOGRAPHER by Noel Mcclure M.D. [id number]
[2022-02-05] MEDS: ipratropium-albuterol 3 mL Neb INHALATION (15:19)
[2022-02-05 15:29] LABS: ABG PCO2 43.7 mmHg (35-45); Base Excess ABG -4.9 mmol/L (-2.0-2.0); Blood Gas Allen Test Pos; Blood Gas Operator Identificat CAK; Blood Gas Sample Site Radial, right; Blood Gas Sample Type Arterial; Carboxyhemoglobin 1.3 %THgb (0.4-20.1); HCO3 ABG 21.3 mmol/L (22-26); HGB O2 Sat 91.2 % (95-100); Methemoglobin 0.9 % (0.4-1.5); Oxygen Device NC; PO2 ABG 68.4 mmHg (80.0-100.0); Total Hemoglobin 8.5 g/dL (14-18)
[2022-02-05 15:42] LABS: Basophils % 0.4 %; Eosinophils # 0.5 10^3/uL (0.0-0.8); Eosinophils % 6.1 %; Hemoglobin 8.3 g/dL (11.7-16.6); Lymphocytes # 0.6 10^3/uL (0.8-4.8); Lymphocytes % 8.3 %; Mean Corpuscular HGB Conc 29.6 g/dL (30.0-36.0); Mean Corpuscular Volume 101.1 fl (80-94); Mean Platelet Volume 9.4 fL (7.4-10.4); Monocytes # 0.7 10^3/uL (0.2-0.9); Monocytes % 9.4 %; Neutrophils # 5.74 10^3/uL (1.8-7.7); Neutrophils % 75.5 %; Nucleated Red Blood Cells % 0 %; Platelet Count 226 10^3/cmm (130-400); Red Blood Count 2.77 10^6/uL (4.1-5.3); Red Cell Distribution Width 15.9 % (12.1-15.1); White Blood Count 7.6 10^3/uL (4.0-10.0)
[2022-02-05 16:17] LABS: Lactic Sepsis W/Reflex 1.4 mmol/L (0.5-2.2)
[2022-02-05 17:15] LABS: Troponin(5th) Baseline 41 ng/L (0-15)
[2022-02-05 17:21] LABS: Troponin 5 2HR 37.31 ng/L (0-15)
[2022-02-05 17:23] LABS: Alanine Aminotransferase 14 U/L (0-41); Albumin Level 3.4 g/dL (3.5-5.2); Alkaline Phosphatase 88 U/L (40-130); Anion Gap 15.4 (5-19); Aspartate Amino Transferase 30 U/L (0-40); Blood Urea Nitrogen 30 mg/dL (8-23); Calcium 8.7 mg/dL (8.5-10.5); Carbon Dioxide 23 mmol/L (22-29); Chloride 104 mmol/L (98-107); Globulin 3.4 g/dL (1.3-4.6); Glucose 87 mg/dL (65-115); NT Pro B Type Natriuretic Pept 11750 pg/mL (0-125); Osmolality Calculated 290 mOsm/kg (285-295); Potassium 5.4 mmol/L (3.5-5.1); Sodium 137 mmol/L (136-145); Total Bilirubin 0.2 mg/dL (0.15-1.2); Total Protein 6.8 g/dL (6.6-8.7)
[2022-02-05 17:24] LABS: Troponin 5 2HR Delta -3.69 ABS# (0-10)
--- NOTE | 2022-02-05 17:32 | ECG_ITS ---
[facility] Test Date: 2022-02-05 Pat Name: Jamie Davison Department: Room: Gender: Male Lead Process Engineer: : 1950 Requested By: Dell Zamora Order Number: [id number] Bob MD: Noel Mcclure M.D. Measurements Intervals [place] Rate: 66 P: 69 GA: 238 QRS: 13 QRSD: 83 T: 23 QT: 418 QTc: 441 Interpretive Statements SINUS RHYTHM WITH FIRST DEGREE AV BLOCK MODERATE T-WAVE ABNORMALITY, CONSIDER ANTERIOR ISCHEMIA [-0.1+ mV T-WAVE IN V3/V4] Compared to ECG 02/05/2022 15:17:33 No significant changes Electronically Signed On 02-07-2022 15:17:19 SHOE SALESMAN by Noel Mcclure M.D. [id number]
[2022-02-05] MEDS: albuterol 2.5 mg/3 mL Neb INHALATION (17:36)
[2022-02-05 17:41] LABS: Adenovirus Not Detected (NOT DETECT); Chlamydia Pneumoniae Not Detected (NOT DETECT); Coronavirus 229E,HKU1,NL63,OC4 Not Detected (NOT DETECT); Human Metapneumovirus Not Detected (NOT DETECT); Human Rhinovirus/Enterovirus Not Detected (NOT DETECT); Influenza A Not Detected (NOT DETECT); Influenza A H1 Not Detected (NOT DETECT); Influenza A H1-2009 Not Detected (NOT DETECT); Influenza A H3 Not Detected (NOT DETECT); Influenza B Not Detected (NOT DETECT); Mycoplasma Pneumoniae Not Detected (NOT DETECT); Parainfluenza Virus Type 1 Not Detected (NOT DETECT); Parainfluenza Virus Type 2 Not Detected (NOT DETECT); Parainfluenza Virus Type 3 Not Detected (NOT DETECT); Parainfluenza Virus Type 4 Not Detected (NOT DETECT); Respiratory Syncytial Virus A Not Detected (NOT DETECT); Respiratory Syncytial Virus B Not Detected (NOT DETECT); SARS-COV-2 Not Detected (NOT DETECT)
[2022-02-05] MEDS: FUROsemide 10 mg/mL SDV 4mL 40 MG IVP (18:51)
[2022-02-05] MEDS: doxycycline 100 MG in sodium chloride 0.9% (plus) 100 ML IV (18:51)
--- NOTE | 2022-02-05 20:30 | P.HP_ITS ---
Providers/Chief Complaint Admitting Physician: Alejo Palmer Primary Care Provider: Timi Roque MD Chief Complaint: SOB History of Present Illness Pleasant 71-year-old gentleman with HFpEF, COPD, normally on 4 L nasal cannula oxygen at home, with recent hospitalization discharged on 01/29 where he was hospitalized due to acute renal failure, thought to be related to postobs tructive etiology with BPH, incomplete voiding, he was discharged on Flomax with requested follow-up with urology after improvement in renal function, successful voiding trial. He was also monitored for alcohol withdrawal. Acute on chronic hyponatremia had improved. Acute on chronic anemia was under observation as well. Due to CORY his Lasix were held at discharge with tentative resumption date after he sees PCP or 02/07. However, he presents to the hospital today due to progressive dyspnea on exertion, orthopnea, lower extremity edema, with worsening severity of symptoms. He reports that he has cough, but no worse than his chronic cough with COPD. He reports some pleuritic chest discomfort with inspiration. Denies persistent chest pain or pressure. With regards to CODE STATUS he would not want resuscitation in case of cardiopulmonary arrest, but would be okay with transient mechanical ventilatory support in case of reversible respiratory failure alone. Review of Systems Const: Denies: fever(s), chills, body aches or malaise Eyes: Denies: change in vision, eye discomfort or eye redness ENMT: Denies: throat pain, oral sores or ear or mastoid pain Card: Reports: edema, swelling of feet/ankles, dyspnea on exertion and orthopnea; Denies: pre-syncope Resp: Reports: dyspnea, non-productive cough and pain on inspiration; Denies: change in phlegm color or hemoptysis GI: Denies: abdominal pain, nausea, vomiting, diarrhea, constipation, hematochezia or melena : Denies: flank pain, difficulty urinating, urinary frequency or hematuria Musc: Denies: back pain, joint swelling or joint redness Skin/Breast: Denies: rash or new lesions Neuro: Denies: headache(s), numbness in extremities, weakness in extremities, dizziness, confusion or seizure-like activity Endo: Denies: polyuria or polydipsia Riaz/Lymph: Denies: easy bleeding or tender lymph nodes All/Imm: Denies: urticaria or tongue swelling Medications/Allergies Home Medications Medication Instructions Recorded Confirmed Last Taken Type albuterol sulfate 90 mcg/actuation 2 puff inhalation Q4H PRN 09/20/19 02/05/22 Unknown History aerosol inhaler (Ventolin HFA) Shortness Of Breath budesonide-formoterol HFA 160 2 puff inhalation BID 09/20/19 02/05/22 02/05/22 History mcg-4.5 mcg/actuation aerosol inhaler (Symbicort) fluticasone propionate 50 2 spray intranasal DAILY PRN 09/20/19 02/05/22 Unknown History mcg/actuation nasal Allergy Symptoms spray,suspension (Flonase Allergy Relief) ipratropium 0.5 mg-albuterol 3 mg 3 ml inhalation Q6H PRN Shortness 09/20/19 02/05/22 Unknown History (2.5 mg base)/3 mL nebulization Of Breath soln montelukast 10 mg tablet 10 mg PO DAILY 09/20/19 02/05/22 02/05/22 History (Singulair) tizanidine 4 mg capsule 4 mg PO Q8H PRN Muscle Spasm 09/20/19 02/05/22 Unknown History metoprolol tartrate 50 mg tablet 50 mg PO BID 08/09/20 02/05/22 02/05/22 History lisinopril 20 mg tablet 20 mg PO DAILY #90 tabs 03/26/21 02/05/22 02/05/22 Rx furosemide 20 mg tablet 20 mg PO DAILY may take extra tab 01/28/22 02/05/22 02/05/22 History if increase in swelling magnesium L-lactate 84 mg 84 mg PO .3-4 TIMES A WEEK 01/28/22 02/05/22 02/05/22 History tablet,extended release (Magtab) multivitamin 1 tab PO DAILY 01/28/22 02/05/22 02/05/22 History aspirin 81 mg tablet,delayed 81 mg PO DAILY 30 days #30 tabs 01/29/22 02/05/22 02/05/22 Rx release atorvastatin 40 mg tablet 40 mg PO BEDTIME 30 days #30 tabs 01/29/22 02/05/22 02/04/22 Rx folic acid 1 mg tablet 1 mg PO DAILY 30 days #30 tabs 01/29/22 02/05/22 02/05/22 Rx gabapentin 300 mg capsule 300 mg PO DAILY #30 caps 01/29/22 02/05/22 02/05/22 Rx tamsulosin 0.4 mg capsule (Flomax) 0.4 mg PO DAILY 30 days #30 caps 01/29/22 02/05/22 02/05/22 Rx thiamine mononitrate (vit B1) 100 100 mg PO DAILY 30 days #30 tabs 01/29/22 02/05/22 02/05/22 Rx mg tablet (Vitamin B-1 (mononitrate)) Allergies Allergy/AdvReac Type Severity Reaction Status Date / Time bupropion [From Wellbutrin] Allergy Mild ALGY-Hives Verified 02/05/22 15:02 PFSH Acute PFSH: Medical History (Updated 02/05/22 @ 20:40 by Alejo Palmer MD) AAA (abdominal aortic aneurysm) CHF (congestive heart failure) COPD (chronic obstructive pulmonary disease) Dyslipidemia HTN (hypertension) PAD (peripheral artery disease) Surgical History Hx of aorto-femoral bypass Hx of hand surgery Previous back surgery Family History Father Hypertension CAD (coronary artery disease) Myocardial infarction Stroke Mother Cancer Denies family history of Diabetes Clotting disorder Dementia Chronic kidney disease (CKD) Suicide Anesthesia complication Bleeding disorder Lung disease Social History Smoking and tobacco status: former smoker Quit status (tobacco): has quit using tobacco Year quit tobacco: 2012 Alcohol intake: current Alcohol intake frequency: 0-2 Drinks per Day Lives independently: Yes Housing: House Vitals/I&O/Wt Last Vital Signs Temp 97.9 F 02/05/22 15:03 Pulse 75 02/05/22 20:03 Resp 16 02/05/22 20:03 BP 128/108 02/05/22 20:03 Pulse Ox 100 02/05/22 20:03 O2 Del Method 02/05/22 20:03 O2 Flow Rate 4 02/05/22 20:03 11/10/22 11/10/22 11/10/22 06:59 14:59 22:59 Intake Total 100 / 100 Balance 100 / 100 Weight last 48 hrs Weight 65.771 kg Weight 92.986 kg Physical Exam Const: COMMON NORMALS: patient oriented x3 and alert GENERAL APPEARANCE: cooperative ORIENTATION/CONSCIOUSNESS: Yes awake HENMT: COMMON NORMALS: oropharynx normal Neck/C-Spine: COMMON NORMALS: no JVD Resp: AUSCULTATION: diminished lung sounds Cardio: COMMON NORMALS: no JVD, regular rhythm, S1 normal heart sound present, S2 normal heart sound present and No murmurs present (Cardio) RHYTHM: regular rhythm HEART SOUNDS: S1 normal heart sound present and S2 normal heart sound present GI: COMMON NORMALS: Normal to inspection, nondistended, normoactive bowel sounds present, Soft to palpation and non-tender PALPATION: Yes Soft to palpation Extremity: COMMON NORMALS: no joint enlargement GENERAL: Yes edema (3+, L>R) Neuro: COMMON NORMALS: patient oriented x3 and moves all extremities SENSORIUM/ORIENTATION: Yes alert Skin: COMMON NORMALS: no rashes or lesions noted GENERAL SKIN EXAM: no rashes or lesions noted RASHES: other (Chronic stasis dermatitis bilateral lower extremities) Data : 02/05/22 15:00 02/05/22 15:00 A&P Assessment and plan (1) CHF exacerbation: Acute exacerbation of HFpEF. Recently Lasix had to be discontinued due to acute renal failure. However, progressively getting more edematous, with dyspnea exertion, orthopnea. Creatinine has been improving. Resumed on diuresis, received so far 40 mg IV Lasix, continue every 24 hours for now, reassess renal function. Consider adjustment of dose depending on response. Monitor I&O, weights. Cardiac diet. Discussed with him treatment of CHF may be complicated by renal failure. Complete troponin EKG series. He does have some pleuritic discomfort as well, does have some persistent cough secondary to COPD, however, will assess additionally D-dimer. (2) COPD (chronic obstructive pulmonary disease): Normally on 4 L nasal cannula oxygen. Continue breathing treatments. He has r eceived Solu-Medrol and doxycycline in ER. For now we will not continue as he does not feel his COPD is worse than usual, however, would reassess for any additional symptom changes. Continue breathing treatments. (3) CKD (chronic kidney disease): Recent acute kidney injury, creatinine has been improving, in part with convalescence but possibly also with delusional reduction with worsening edema. Originally CORY was thought to be postobstructive secondary to BPH. Monitor for any symptoms of urinary obstruction. Continue Flomax. Resume diuretics for CHF as above. Monitor renal function. Plan Lower extremity edema, asymmetric: Left lower extremity greater than right lower extremity. Assess bilateral lower extremity duplex to exclude DVT. AAA HLD HTN PAD Attestations Medical Necessity Statement*: Place in observation to start for assessment of management of acute diastolic CHF exacerbation, however, may require longer admission due to underlying CKD with recent CORY. Coding Level of Care Code Acute Fire Hydrant Mechanic for g Fwd Diagnoses CHF exacerbation I50.9 COPD (chronic obstructive pulmonary disease) J44.9 CKD (chronic kidney disease) N18.9
--- NOTE | 2022-02-05 20:36 | USCV_ITS ---
Jamie Davison Age: 71 Gender: M : 1950 Exam Date: 02/05/2022 20:50 Ordering Phys: Alejo Palmer MD Technologist: YOLIE [place]am Location[place] [facility] [place]ication: chronic BLE 3+ pitting edema with bilateral calf blotchy erythema. HISTORY: chronic BLE 3+ pitting edema with bilateral calf blotchy erythema. PROCEDURES: Venous duplex imaging was performed in bilateral lower extremities. The venous duplex Doppler examination of both lower extremities was performed in the standard fashion. The following venous structures were evaluated: common femoral vein, profunda vein, proximal portion of the greater saphenous vein, superficial femoral vein, and the popliteal vein. In addition, the posterior tibial and peroneal veins were evaluated. FINDINGS: Normal 2-D Doppler and augmentation and compressibility throughout the lower extremity venous structures. Additional imaging through the proximal calf veins also reveals no thrombus. Limited evaluation of the greater saphenous vein is patent with no thrombus. There is subcutaneous lower extremity edema noted. CONCLUSIONS No DVT bilateral lower extremities. Dr. Yumiko Rivero DO (Electronically Signed) Final Date: 06 February 2022 07:41 S
--- NOTE | 2022-02-05 21:10 | ECG_ITS ---
[facility] Test Date: 2022-02-05 Pat Name: Jamie Davison Department: Room: 254 Gender: Male Train Examiner: : 1950 Requested By: Dell Zamora Order Number: [id number] Bob MD: Noel Mcclure M.D. Measurements Intervals [place] Rate: 73 P: 82 [place]: 246 QRS: 23 QRSD: 86 T: 56 QT: 416 QTc: 461 Interpretive Statements SINUS RHYTHM WITH FIRST DEGREE AV BLOCK MODERATE T-WAVE ABNORMALITY, CONSIDER ANTERIOR ISCHEMIA [-0.1+ mV T-WAVE IN V3/V4] Compared to ECG 02/05/2022 17:32:45 No significant changes Electronically Signed On 02-07-2022 15:18:06 POULTRY PATHOLOGIST by Noel Mcclure M.D. [email or web address] [id number]
[2022-02-05] MEDS: heparin 5,000 unit/mL INJ 1 mL 5000 UNIT SUBCUT (21:23)
[2022-02-05] MEDS: atorvastatin 40 mg Tablet PO (21:23)
[2022-02-05 22:12] LABS: Troponin 5 6HR 37.15 ng/L (0-15)
[2022-02-05 22:16] LABS: Troponin 5 6HR Delta -3.85 ng/L (0-12)
[2022-02-05 22:17] LABS: D Dimer 4.68 ug/mIFEU (0-0.59)
[2022-02-06] VITALS (12 sets, daily range): BP systolic 100–144; BP diastolic 60–85; PULSE 61–103; RESP 15–20; TEMP 36.4–36.9; O2SAT 91–99
[2022-02-06] MEDS: ipratropium-albuterol 3 mL Neb INHALATION ×4 (02:03→20:47)
[2022-02-06] MEDS: FUROsemide 10 mg/mL SDV 4mL 40 MG IVP (05:27)
[2022-02-06 06:26] LABS: Alanine Aminotransferase 12 U/L (0-41); Albumin Level 3.3 g/dL (3.5-5.2); Alkaline Phosphatase 76 U/L (40-130); Blood Urea Nitrogen 35 mg/dL (8-23); Calcium 8.9 mg/dL (8.5-10.5); Carbon Dioxide 22 mmol/L (22-29); Chloride 107 mmol/L (98-107); Globulin 3.5 g/dL (1.3-4.6); Glucose 157 mg/dL (65-115); Magnesium 1.2 mg/dL (1.7-2.3); Osmolality Calculated 303 mOsm/kg (285-295); Sodium 141 mmol/L (136-145); Total Bilirubin 0.2 mg/dL (0.15-1.2); Total Protein 6.8 g/dL (6.6-8.7)
[2022-02-06 06:29] LABS: Anion Gap 17.4 (5-19); Aspartate Amino Transferase 24 U/L (0-40); Potassium 5.4 mmol/L (3.5-5.1)
[2022-02-06] MEDS: albuterol 2.5 mg/3 mL Neb INHALATION (06:31)
[2022-02-06] MEDS: heparin 5,000 unit/mL INJ 1 mL 5000 UNIT SUBCUT ×2 (08:31→20:43)
[2022-02-06] MEDS: gabapentin 300 mg Capsule PO (08:31)
[2022-02-06] MEDS: folic acid 1 mg Tablet PO (08:31)
[2022-02-06] MEDS: montelukast sodium 10 mg Tablet PO (08:31)
[2022-02-06] MEDS: metoprolol tartrate 50 mg Tablet PO ×2 (08:31→17:44)
[2022-02-06] MEDS: aspirin 81 mg EC Tablet PO (08:31)
[2022-02-06] MEDS: thiamine 100 mg Tablet PO (08:32)
[2022-02-06] MEDS: tamsulosin 0.4 mg Capsule PO (08:32)
[2022-02-06] MEDS: magnesium sulfate premix 2 GM/50 ML PIGGYBACK IV (11:05)
--- NOTE | 2022-02-06 11:39 | P.PN_ITS ---
Subjective Subjective: No acute events overnight. Patient says he feels 150% better than admission however still feels short of breath. Vitals/I&O/Wt Last Vital Signs Temp 97.7 F 02/06/22 07:49 Pulse 92 02/06/22 09:09 Resp 20 H 02/06/22 09:09 BP 144/81 02/06/22 07:49 Pulse Ox 99 02/06/22 09:09 O2 Del Method 02/06/22 09:09 O2 Flow Rate 4 02/06/22 09:09 02/05/22 02/06/22 02/06/22 22:59 06:59 14:59 Intake Total 340 / 340 240 / 580 360 / 360 Balance 340 / 340 240 / 580 360 / 360 Weight last 48 hrs Weight 65.771 kg Weight 92.986 kg Physical Exam Narrative: General: Alert oriented x3, patient seen sitting up in bed on 4 L nasal cannula at this time. HEENT: Normocephalic, atraumatic, EOMI, breathing comfortably no acute distress Cardio: Regular rate rhythm, normal S1-S2, _ Respiratory: Bilateral bibasilar crackles and rhonchi present GI: Abdomen soft, nontender, nondistended, bowel sounds + Behavior: Appropriate and cooperative Extremities: 1-2+ pitting edema bilateral lower extremities Data : 02/05/22 15:00 02/06/22 05:02 A&P Assessment and plan (1) CKD (chronic kidney disease): (2) COPD (chronic obstructive pulmonary disease): (3) CHF exacerbation: (4) Acute kidney injury: (5) PAD (peripheral artery disease): (6) HTN (hypertension): (7) Dyslipidemia: Plan #Acute on chronic heart failure with preserved ejection fraction #COPD #4Liters nasal cannula [id number] at home #CORY on CKD #Chronic anemia #History of abdominal aortic aneurysm #Hyperlipidemia, hypertension, peripheral artery disease -Continue to diurese the patient. Lasix 40 IV twice daily ? Continue supplementation of nasal cannula ? We will hold off on steroids for now. ? Continue DuoNeb every 4 however as needed ? CORY most likely secondary to cardiorenal syndrome. Continue to diurese patient. ? Venous Doppler ruled out DVT Full code DVT prophylaxis: Heparin Disposition: Patient will need to stay in the hospital 24 to 48-hour for IV diuresis Attestations Medical Necessity Statement*: Patient will need to stay in the hospital 24 to 48-hour for IV diuresis Coding Level of Care Code Acute Material Requirements Planning Manager for Chg Fwd Diagnoses CKD (chronic kidney disease) N18.9 COPD (chronic obstructive pulmonary disease) J44.9 CHF exacerbation I50.9 Acute kidney injury N17.9 PAD (peripheral artery disease) I73.9 HTN (hypertension) I10 Dyslipidemia E78.5
[2022-02-06] MEDS: atorvastatin 40 mg Tablet PO (20:43)
[2022-02-07] VITALS (16 sets, daily range): BP systolic 106–133; BP diastolic 61–82; PULSE 65–111; RESP 17–20; TEMP 36.5–36.8; O2SAT 91–99
[2022-02-07] MEDS: ipratropium-albuterol 3 mL Neb INHALATION ×4 (03:11→19:32)
[2022-02-07] MEDS: FUROsemide 10 mg/mL SDV 4mL 40 MG IVP (05:07)
[2022-02-07 05:51] LABS: Alanine Aminotransferase 9 U/L (0-41); Albumin Level 3.2 g/dL (3.5-5.2); Alkaline Phosphatase 63 U/L (40-130); Anion Gap 13.2 (5-19); Aspartate Amino Transferase 17 U/L (0-40); Blood Urea Nitrogen 34 mg/dL (8-23); Calcium 8.9 mg/dL (8.5-10.5); Carbon Dioxide 25 mmol/L (22-29); Chloride 103 mmol/L (98-107); Globulin 2.9 g/dL (1.3-4.6); Glucose 86 mg/dL (65-115); Magnesium 1.4 mg/dL (1.7-2.3); Osmolality Calculated 289 mOsm/kg (285-295); Potassium 5.2 mmol/L (3.5-5.1); Sodium 136 mmol/L (136-145); Total Bilirubin 0.2 mg/dL (0.15-1.2); Total Protein 6.1 g/dL (6.6-8.7)
[2022-02-07] MEDS: thiamine 100 mg Tablet PO (09:02)
[2022-02-07] MEDS: tamsulosin 0.4 mg Capsule PO (09:02)
[2022-02-07] MEDS: folic acid 1 mg Tablet PO (09:02)
[2022-02-07] MEDS: metoprolol tartrate 50 mg Tablet PO ×2 (09:02→16:59)
[2022-02-07] MEDS: aspirin 81 mg EC Tablet PO (09:02)
[2022-02-07] MEDS: tizanidine 4 mg Tablet PO ×2 (09:02→20:27)
[2022-02-07] MEDS: gabapentin 300 mg Capsule PO (09:03)
[2022-02-07] MEDS: acetaminophen 325 mg Tablet 650 MG PO ×2 (09:03→16:59)
[2022-02-07] MEDS: montelukast sodium 10 mg Tablet PO (09:03)
[2022-02-07] MEDS: heparin 5,000 unit/mL INJ 1 mL 5000 UNIT SUBCUT ×2 (09:03→20:27)
--- NOTE | 2022-02-07 12:41 | P.PN_ITS ---
Subjective Subjective: seen this am labs reviewed consistently hyperkalemic 5.2 cr 1.5 today feels better but not back to baseline Mg low 1.4 Vitals/I&O/Wt Last Vital Signs Temp 98.1 F 02/07/22 11:39 Pulse 65 02/07/22 11:39 Resp 17 02/07/22 11:39 BP 106/71 02/07/22 11:39 Pulse Ox 91 02/07/22 11:39 O2 Del Method 02/07/22 11:39 O2 Flow Rate 3 02/07/22 11:39 02/06/22 02/07/22 02/07/22 22:59 06:59 14:59 Intake Total 240 / 1010 240 / 1250 360 / 360 Output Total 300 / 300 500 / 800 Balance -60 / 710 -260 / 450 360 / 360 Weight last 48 hrs Weight 65.771 kg Weight 65.771 kg Weight 92.986 kg Physical Exam Narrative: General: Alert oriented x3, patient seen sitting up in bed on 3 L nasal cannula at this time. HEENT: Normocephalic, atraumatic, EOMI, breathing comfortably no acute distress Cardio: Regular rate rhythm, normal S1-S2, _ Respiratory: Bilateral bibasilar crackles and rhonchi present but improved than yesterdays. GI: Abdomen soft, nontender, nondistended, bowel sounds + Behavior: Appropriate and cooperative Extremities: 1+ pitting edema bilateral lower extremities Data : 02/05/22 15:00 02/07/22 05:19 A&P Assessment and plan (1) CKD (chronic kidney disease): (2) COPD (chronic obstructive pulmonary disease): (3) CHF exacerbation: (4) Acute kidney injury: (5) PAD (peripheral artery disease): (6) HTN (hypertension): (7) Dyslipidemia: Plan #Acute on chronic heart failure with preserved ejection fraction #COPD #4Liters nasal cannula [id number] at home #CORY on CKD #Chronic anemia #History of abdominal aortic aneurysm #Hyperlipidemia, hypertension, peripheral artery disease #Hyperkalemia -Continue to diurese the patient. Lasix 40 IV twice daily ? Continue supplementation of nasal cannula ? We will hold off on steroids for now. ? Continue DuoNeb every 4 however as needed ? CORY most likely secondary to cardiorenal syndrome. Continue to diurese patient. ? Venous Doppler ruled out DVT - Replete magnesium - Check UA. R/o RTA Full code DVT prophylaxis: Heparin Disposition: Patient will need to stay in the hospital 24 to 48-hour for IV diuresis Attestations Medical Necessity Statement*: Patient will need to stay in the hospital 24 to 48-hour for IV diuresis Coding Level of Care Code Acute Full Roll Inspector for Chg Fwd Diagnoses CKD (chronic kidney disease) N18.9 COPD (chronic obstructive pulmonary disease) J44.9 CHF exacerbation I50.9 Acute kidney injury N17.9 PAD (peripheral artery disease) I73.9 HTN (hypertension) I10 Dyslipidemia E78.5
[2022-02-07] MEDS: magnesium sulfate premix 4 GM/100 ML PREMIX IV (14:05)
[2022-02-07] MEDS: fluticasone nasal spray 16gm Btl 2 SPRAY INTRANASAL (16:59)
--- NOTE | 2022-02-07 17:42 | ECG_ITS ---
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 Measurements Intervals [place] Rate: 71 P: 51 OK: 210 QRS: -2 QRSD: 87 T: 17 QT: 399 QTc: 436 Interpretive Statements SINUS RHYTHM WITH FIRST DEGREE AV BLOCK Compared to ECG 02/05/2022 21:27:09 T-wave abnormality no longer present Possible ischemia no longer present Electronically Signed On 02-08-2022 22:23:28 ORDER MANAGEMENT SPECIALIST by Noel Mcclure M.D. [id number]
--- NOTE | 2022-02-07 19:05 | PC.NURSE ---
Pt states that he is SOB at this time, requesting MMTX. RT notified of pt sats 95% on 4 l/m via n/c and abd breathing w/request for MMTX. Will await RT arrival.
--- NOTE | 2022-02-07 20:06 | XRR_ITS ---
PROCEDURE INFORMATION: Exam: XR Chest Exam date and time: 02/07/2022 9:21 PM Age: 71 years old Clinical indication: Shortness of breath; TECHNIQUE: Imaging protocol: Radiologic exam of the chest. Views: 1 view. COMPARISON: CR (CHEST, ) 02/05/2022 4:36 PM FINDINGS: Lungs: There are streaky opacities at the bilateral lung bases. There are pulmonary parenchymal calcifications consistent with remote granulomatous organism exposure. Pleural spaces: Unremarkable. No pleural effusion. No pneumothorax. Heart/Mediastinum: Heart size not optimally evaluated with a single AP view of the chest. Bones/joints: Thoracic dextroscoliosis. Degenerative changes are present in the visualized spine. XR/XR chest 1V portable [id number] IMPRESSION: Streaky opacities at the lung bases are nonspecific. Differential includes scar tissue, atelectasis, and or pneumonia.
--- NOTE | 2022-02-07 20:08 | PC.NURSE ---
Pt continues to c/o increased SOB, after completion of MMTX w/RT. Requesting saline nasal spray. Lungs are noted to have rhonci to bilateral lung bases w/exp wheeze. Using abd muscles to breathe at this time. O2 sat 95% on 4 l/m via n/c at this time. Referred pt to first responder physician for review of sx. Will await orders.
--- NOTE | 2022-02-07 20:11 | PC.NURSE ---
NO received and noted for 1)CXR 2) Pulmocort MMTX 3) saline nasal spray. Will notify pt of new orders.
--- NOTE | 2022-02-07 20:19 | PC.NURSE ---
Dr. Salcido here to round. Pt seen and assessed. NO received and noted.
[2022-02-07] MEDS: cefTRIAXone 1,000 MG in sodium chloride 0.9% (plus) 50 ML 100 MG IV (20:26)
[2022-02-07] MEDS: atorvastatin 40 mg Tablet PO (20:28)
[2022-02-07] MEDS: saline nasal spray 44mL Btl 1 SPRAY NASAL (20:29)
[2022-02-08] VITALS (16 sets, daily range): BP systolic 141–167; BP diastolic 81–104; PULSE 61–80; RESP 16–18; TEMP 36.2–37; O2SAT 93–98
--- NOTE | 2022-02-08 00:04 | PC.NURSE ---
Pt is resting quietly in bed at this time, no s/sx of pain present, no s/sx of respiratory difficulty or distress present.
[2022-02-08] MEDS: ipratropium-albuterol 3 mL Neb INHALATION ×4 (01:26→19:53)
[2022-02-08 02:59] LABS: Urine Appearance Clear (CLEAR); Urine Color Yellow (Yellow)
[2022-02-08 03:00] LABS: Add Urine Culture? No; Bilirubin Urine Neg (Negative); Blood Urine Neg (Negative); Glucose Urine UA Norm (Normal); Ketones Urine Negative (Negative); Leukocyte Esterase Urine Negative (Negative); Nitrate Urine Negative (Negative); Protein Urine Neg (Negative); Squamous Epithelial Cell Urine 0-4 /hpf (0-5); Urobilinogen Urine Norm (Negative); pH Urine 5 (5-7)
[2022-02-08] MEDS: FUROsemide 10 mg/mL SDV 4mL 40 MG IVP (05:11)
[2022-02-08 05:45] LABS: Alanine Aminotransferase 10 U/L (0-41); Albumin Level 3.3 g/dL (3.5-5.2); Alkaline Phosphatase 71 U/L (40-130); Anion Gap 16.4 (5-19); Aspartate Amino Transferase 17 U/L (0-40); Blood Urea Nitrogen 31 mg/dL (8-23); Calcium 8.7 mg/dL (8.5-10.5); Carbon Dioxide 23 mmol/L (22-29); Chloride 99 mmol/L (98-107); Globulin 3.1 g/dL (1.3-4.6); Glucose 178 mg/dL (65-115); Magnesium 1.8 mg/dL (1.7-2.3); Osmolality Calculated 287 mOsm/kg (285-295); Potassium 5.4 mmol/L (3.5-5.1); Sodium 133 mmol/L (136-145); Total Bilirubin 0.2 mg/dL (0.15-1.2); Total Protein 6.4 g/dL (6.6-8.7)
--- NOTE | 2022-02-08 07:20 | PC.SOCIAL ---
IMM Update Patient is currently in observation status, IMM updated not required.
[2022-02-08] MEDS: thiamine 100 mg Tablet PO (07:41)
[2022-02-08] MEDS: aspirin 81 mg EC Tablet PO (07:41)
[2022-02-08] MEDS: folic acid 1 mg Tablet PO (07:41)
[2022-02-08] MEDS: gabapentin 300 mg Capsule PO (07:41)
[2022-02-08] MEDS: montelukast sodium 10 mg Tablet PO (07:41)
[2022-02-08] MEDS: tamsulosin 0.4 mg Capsule PO (07:42)
[2022-02-08] MEDS: metoprolol tartrate 50 mg Tablet PO ×2 (07:42→16:46)
[2022-02-08] MEDS: heparin 5,000 unit/mL INJ 1 mL 5000 UNIT SUBCUT ×2 (07:42→20:03)
[2022-02-08] MEDS: budesonide 0.5 mg/2 mL Neb INHALATION ×2 (08:10→19:53)
[2022-02-08] MEDS: azithromycin 500 MG in sodium chloride 0.9% 250 ML 250 MG IV (09:59)
--- NOTE | 2022-02-08 12:00 | PM.PN ---
Subjective Subjective: seen this am overnight pt got hypoxic and had worsening cough overnight event noted K 5.4 again today Sodiun 133 Cr 1.4 Vitals/I&O/Wt Last Vital Signs Temp 98.3 F 02/08/22 11:54 Pulse 73 02/08/22 11:54 Resp 16 02/08/22 11:54 BP 146/94 02/08/22 11:54 Pulse Ox 97 02/08/22 11:54 O2 Del Method 02/08/22 11:54 O2 Flow Rate 4 02/08/22 08:13 02/07/22 02/08/22 02/08/22 22:59 06:59 14:59 Intake Total 1110 / 1950 480 / 480 Output Total 1600 / 1600 1225 / 2825 800 / 800 Balance -490 / 350 -1225 / -875 -320 / -320 Weight last 48 hrs Weight 94.937 kg Weight 65.771 kg Physical Exam Narrative: General: Alert oriented x3, patient seen sitting up in bed on 3 L nasal cannula at this time. HEENT: Normocephalic, atraumatic, EOMI, breathing comfortably no acute distress Cardio: Regular rate rhythm, normal S1-S2, _ Respiratory: no crackles today, however diffuse wheezing present Extremities: 1+ pitting edema bilateral lower extremities Data : 02/05/22 15:00 02/08/22 04:47 A&P Assessment and plan (1) CKD (chronic kidney disease): (2) COPD (chronic obstructive pulmonary disease): (3) CHF exacerbation: (4) Acute kidney injury: (5) PAD (peripheral artery disease): (6) HTN (hypertension): (7) Dyslipidemia: Plan #Acute on chronic heart failure with preserved ejection fraction #COPD exacerbation #4Liters nasal cannula [id number] at home #CORY on CKD #Chronic anemia #History of abdominal aortic aneurysm #Hyperlipidemia, hypertension, peripheral artery disease #Hyperkalemia -Continue to diurese the patient. Lasix 40 IV twice daily ? Continue supplementation of nasal cannula ? Start ceft + azithromycin - Solumedrol 60 q6H added ? Continue DuoNeb every 4 however as needed ? CORY most likely secondary to cardiorenal syndrome. Continue to diurese patient. ? Venous Doppler ruled out DVT - Replete magnesium - Check UA. Will check urine lytes - Perisistent hyperkalemia. Keilaxalate 15 x1 - Consult nephrology Full code DVT prophylaxis: Heparin Disposition: Home once medically stable Attestations Medical Necessity Statement*: needs continued hospitalization for tx of copd exacerbation and chf exacerbation Coding Level of Care Code Acute Gear Tooth Grinding Machine Operator for Chg Fwd Diagnoses CKD (chronic kidney disease) N18.9 COPD (chronic obstructive pulmonary disease) J44.9 CHF exacerbation I50.9 Acute kidney injury N17.9 PAD (peripheral artery disease) I73.9 HTN (hypertension) I10 Dyslipidemia E78.5
[2022-02-08] MEDS: sodium polystyrene sulfonate 15 gm/60 mL Btl PO (12:34)
--- NOTE | 2022-02-08 13:19 | P.CONIM_ITS ---
Providers/Reason For Consult Consulting Physician/Specialty*: Dr. Hobbs Reason for Consult*: CORY and persistent hyperkalemia Attending Physician: Mayda Hobbs MD Primary Care Provider: Timi Roque MD History of Present Illness History of Present Illness Jamie Davison is a 71 year old male BP with past medical history of CHF, COPD on 4 L nasal cannula at baseline, chronic kidney disease, was recently hospitalized due to CORY due to obstruction and was discharged home on Flomax. P bharath's creatinine was in the 3 range at that time. Patient now presents back to the hospital complaining of shortness of breath and the creatinine was 1.6 on presentation. Also complained of orthopnea lower extremity edema with worsening progressive shortness of breath. Patient was thought to be in CHF exacerbation and his Lasix was resumed. Review of Systems Narrative: Other review of systems negative other than those mentioned in the HPI above Medications/Allergies Home Medications Medication Instructions Recorded Confirmed Last Taken Type albuterol sulfate 90 mcg/actuation 2 puff inhalation Q4H PRN 09/20/19 02/05/22 Unknown History aerosol inhaler (Ventolin HFA) Shortness Of Breath budesonide-formoterol HFA 160 2 puff inhalation BID 09/20/19 02/05/22 02/05/22 History mcg-4.5 mcg/actuation aerosol inhaler (Symbicort) fluticasone propionate 50 2 spray intranasal DAILY PRN 09/20/19 02/05/22 Unknown History mcg/actuation nasal Allergy Symptoms spray,suspension (Flonase Allergy Relief) ipratropium 0.5 mg-albuterol 3 mg 3 ml inhalation Q6H PRN Shortness 09/20/19 02/05/22 Unknown History (2.5 mg base)/3 mL nebulization Of Breath soln montelukast 10 mg tablet 10 mg PO DAILY 09/20/19 02/05/22 02/05/22 History (Singulair) tizanidine 4 mg capsule 4 mg PO Q8H PRN Muscle Spasm 09/20/19 02/05/22 Unknown History metoprolol tartrate 50 mg tablet 50 mg PO BID 08/09/20 02/05/22 02/05/22 History lisinopril 20 mg tablet 20 mg PO DAILY #90 tabs 03/26/21 02/05/22 02/05/22 Rx furosemide 20 mg tablet 20 mg PO DAILY may take extra tab 01/28/22 02/05/22 02/05/22 History if increase in swelling magnesium L-lactate 84 mg 84 mg PO .3-4 TIMES A WEEK 01/28/22 02/05/22 02/05/22 History tablet,extended release (Magtab) multivitamin 1 tab PO DAILY 01/28/22 02/05/22 02/05/22 History aspirin 81 mg tablet,delayed 81 mg PO DAILY 30 days #30 tabs 01/29/22 02/05/22 02/05/22 Rx release atorvastatin 40 mg tablet 40 mg PO BEDTIME 30 days #30 tabs 01/29/22 02/05/22 02/04/22 Rx folic acid 1 mg tablet 1 mg PO DAILY 30 days #30 tabs 01/29/22 02/05/22 02/05/22 Rx gabapentin 300 mg capsule 300 mg PO DAILY #30 caps 01/29/22 02/05/22 02/05/22 Rx tamsulosin 0.4 mg capsule (Flomax) 0.4 mg PO DAILY 30 days #30 caps 01/29/22 02/05/22 02/05/22 Rx thiamine mononitrate (vit B1) 100 100 mg PO DAILY 30 days #30 tabs 01/29/22 02/05/22 02/05/22 Rx mg tablet (Vitamin B-1 (mononitrate)) Allergies Allergy/AdvReac Type Severity Reaction Status Date / Time bupropion [From Wellbutrin] Allergy Mild ALGY-Hives Verified 02/05/22 15:02 Current Medications Generic Name Dose Route Start Last Admin Trade Name Santi PRN Reason Stop Dose Admin Acetaminophen 650 mg 02/05/22 20:31 02/07/22 16:59 Acetaminophen 325 Mg Tablet PO 650 mg Q6H PRN Administration Mild/Mod Pain Or Temp >/= 101 Albuterol Sulfate 2.5 mg 02/05/22 20:29 02/06/22 06:31 Albuterol 2.5 Mg/3 Ml Neb INHALATION 2.5 mg Q4H PRN Administration Shortness Of Breath Albuterol/Ipratropium 3 ml 02/06/22 02:00 02/08/22 08:10 Ipratropium-Albuterol 3 Ml Neb INHALATION 3 ml Q6H.RESP JONAS Administration Aspirin 81 mg 02/06/22 09:00 02/08/22 07:41 Aspirin 81 Mg Ec Tablet PO 81 mg DAILY JONAS Administration Atorvastatin Calcium 40 mg 02/05/22 21:00 02/07/22 20:28 Atorvastatin 40 Mg Tablet PO 40 mg BEDTIME JONAS Administration Budesonide 0.5 mg 02/07/22 20:10 02/08/22 08:10 Budesonide 0.5 Mg/2 Ml Neb INHALATION 0.5 mg BID.RESPIRATORY JONAS Administration Fluticasone Propionate 2 spray 02/05/22 20:29 02/07/22 16:59 Fluticasone Nasal [place] 16gm Btl INTRANASAL 2 spray DAILY PRN Administration Allergy Symptoms Folic Acid 1 mg 02/06/22 09:00 02/08/22 07:41 Folic Acid 1 Mg Tablet PO 1 mg DAILY JONAS Administration Furosemide 40 mg 02/06/22 06:00 02/08/22 05:11 Furosemide 10 Mg/Ml Sdv 4ml IVP 40 mg Q24H JONAS Administration Gabapentin 300 mg 02/06/22 09:00 02/08/22 07:41 Gabapentin 300 Mg Capsule PO 300 mg DAILY JONAS Administration Heparin Sodium (Porcine) 5,000 unit 02/05/22 20:45 02/08/22 07:42 Heparin 5,000 Unit/Ml Inj 1 Ml SUBCUT 5,000 unit Q12H JONAS Administration Ceftriaxone Sodium 1,000 mg/ 50 mls @ 100 mls/hr 02/07/22 20:30 02/07/22 21:19 Sodium Chloride IV Infused Q24H JONAS Infusion Protocol Azithromycin 500 mg/ Sodium 250 mls @ 250 mls/hr 02/08/22 09:00 02/08/22 10:59 Chloride IV Infused Q24H JONAS Infusion Protocol Methylprednisolone Sodium Succinate 60 mg 02/07/22 20:15 02/08/22 07:42 Methylprednisolone Sod Succ 125 Mg/2 Ml Inj IVP 60 mg Q6H JONAS Administration Metoprolol Tartrate 50 mg 02/06/22 09:00 02/08/22 07:42 Metoprolol Tartrate 50 Mg Tablet PO 50 mg BID JONAS Administration Montelukast Sodium 10 mg 02/06/22 09:00 02/08/22 07:41 Montelukast Sodium 10 Mg Tablet PO 10 mg DAILY JONAS Administration Multivitamins/Minerals 1 tab 02/06/22 09:00 02/08/22 07:41 Multivitamin W/Minerals Tablet PO 1 tab DAILY JONAS Administration Sodium Chloride 1 spray 02/07/22 20:08 02/07/22 20:29 Saline Nasal [place] 44ml Btl NASAL 1 spray PRN PRN Administration DRYNESS Tamsulosin HCl 0.4 mg 02/06/22 09:00 02/08/22 07:42 Tamsulosin 0.4 Mg Capsule PO 0.4 mg DAILY JONAS Administration Thiamine Mononitrate 100 mg 02/06/22 09:00 02/08/22 07:41 Thiamine 100 Mg Tablet PO 100 mg DAILY JONAS Administration Tizanidine HCl 4 mg 02/05/22 20:29 02/07/22 20:27 Tizanidine 4 Mg Tablet PO 4 mg Q8H PRN Administration Muscle Spasm PFSH Acute PFSH: Medical History (Updated 02/05/22 @ 20:40 by Alejo Palmer MD) AAA (abdominal aortic aneurysm) CHF (congestive heart failure) COPD (chronic obstructive pulmonary disease) Dyslipidemia HTN (hypertension) PAD (peripheral artery disease) Surgical History Hx of aorto-femoral bypass Hx of hand surgery Previous back surgery Family History Father Hypertension CAD (coronary artery disease) Myocardial infarction Stroke Mother Cancer Denies family history of Diabetes Clotting disorder Dementia Chronic kidney disease (CKD) Suicide Anesthesia complication Bleeding disorder Lung disease Social History Smoking and tobacco status: former smoker Quit status (tobacco): has quit using tobacco Year quit tobacco: 2012 Alcohol intake: current Alcohol intake frequency: 0-2 Drinks per Day Lives independently: Yes Housing: House Vitals/I&O/Wt Last Vital Signs Temp 98.3 F 02/08/22 11:54 Pulse 73 02/08/22 11:54 Resp 16 02/08/22 11:54 BP 146/94 02/08/22 11:54 Pulse Ox 97 02/08/22 11:54 O2 Del Method 02/08/22 11:54 O2 Flow Rate 4 02/08/22 08:13 11/03/1902/08/22 02/08/22 22:59 06:59 14:59 Intake Total 1110 / 1950 730 / 730 Output Total 1600 / 1600 1225 / 2825 1300 / 1300 Balance -490 / 350 -1225 / -875 -570 / -570 Weight last 48 hrs Weight 94.937 kg Weight 65.771 kg Physical Exam Narrative: pt awake and alert no acute distress s1s 2 rr per report Clear farshad per report Has LE edema Data : 02/05/22 15:00 02/08/22 04:47 A&P Assessment and plan (1) CKD (chronic kidney disease): 1. Plan 1. Chronic kidney disease stage III: Patient's baseline creatinine in the 1 range, presented with a creatinine of 1.6 currently at 1.4 which is likely his baseline. Recently had an CORY due to obstructive uropathy with a creatinine peak of 4 range. Has indwelling Ashley catheter currently -Continue to monitor renal function, patient on diuretics -We will check urine electrolytes -Continue home dose Lasix -We will arrange nephrology follow-up at [place] with Dr. Stapleton 2. Persistent hyperkalemia: Unclear etiology, likely has a component of RTA, lisinopril is on hold, obstructive uropathy because of RTA. -We will place on low potassium diet -Plan for Kayexalate x1 dose today -We will continue to monitor 3. CHF exacerbation: Secondary to missing diuretics recently, resume diuretics at home dose -2 g sodium restriction and 1500 mill fluid restriction, -Patient on home O2 level 3 to 4 L at home Patient evaluated using audiovisual cart. Discussed with hospitalist. Time spent within minutes. Consult Attestations Medical Necessity Statement: cory, hyponatremia, met acidosis, mild hyperkalemia Time Spent in Patient Care: Greater than 35 minutes (>than 50% of time spent in counselling and/or direct pt care on unit) . Coding Level of Care Code Established Pt Acute Fiscal Assistant for Selvin Weston Patient Type Established History Problem Focused Medical Decision Making Straight Forward Diagnoses CKD (chronic kidney disease) N18.9
[2022-02-08] MEDS: acetaminophen 325 mg Tablet 650 MG PO (18:42)
[2022-02-08] MEDS: saline nasal spray 44mL Btl 1 SPRAY NASAL (20:01)
[2022-02-08] MEDS: atorvastatin 40 mg Tablet PO (20:02)
[2022-02-08] MEDS: cefTRIAXone 1,000 MG in sodium chloride 0.9% (plus) 50 ML 100 MG IV (20:02)
--- NOTE | 2022-02-08 23:49 | PC.NURSE ---
Pt pulled out iv when rolling over. No bleeding or infection noted to site IV catheter tip was intact. IV restart attempt x2, unsuccessful, pt tolerated procedure well.
[2022-02-09] VITALS (11 sets, daily range): BP systolic 151–164; BP diastolic 87–95; PULSE 70–100; RESP 14–19; TEMP 36.4–36.6; O2SAT 95–99
--- NOTE | 2022-02-09 01:30 | PC.NURSE ---
Upon getting pt ready for solu-medrol push, it was notd that his IV was unable to flush. Upon inspection of the iv catheter it is noted to be bent against his wrist and infiltrated. IV attempt x 1, unsuccessful. Will get another nurse to attempt, IV restart.
[2022-02-09] MEDS: ipratropium-albuterol 3 mL Neb INHALATION ×4 (02:40→20:15)
[2022-02-09 05:03] LABS: Basophils % 0.1 %; Hematocrit 23.8 % (42.0-52.0); Hemoglobin 7.6 g/dL (11.7-16.6); Lymphocytes # 0.4 10^3/uL (0.8-4.8); Mean Corpuscular HGB Conc 31.9 g/dL (30.0-36.0); Mean Corpuscular Volume 94.1 fl (80-94); Mean Platelet Volume 9.9 fL (7.4-10.4); Monocytes # 0.3 10^3/uL (0.2-0.9); Monocytes % 2.3 %; Neutrophils # 10.83 10^3/uL (1.8-7.7); Neutrophils % 94.2 %; Nucleated Red Blood Cells % 0 %; Platelet Count 271 10^3/cmm (130-400); Red Blood Count 2.53 10^6/uL (4.1-5.3); Red Cell Distribution Width 15.3 % (12.1-15.1); White Blood Count 11.5 10^3/uL (4.0-10.0)
[2022-02-09 05:28] LABS: Anion Gap 12.6 (5-19); Blood Urea Nitrogen 33 mg/dL (8-23); Calcium 8.7 mg/dL (8.5-10.5); Carbon Dioxide 27 mmol/L (22-29); Chloride 93 mmol/L (98-107); Glucose 149 mg/dL (65-115); Magnesium 1.6 mg/dL (1.7-2.3); Osmolality Calculated 276 mOsm/kg (285-295); Potassium 4.6 mmol/L (3.5-5.1); Sodium 128 mmol/L (136-145)
[2022-02-09] MEDS: FUROsemide 10 mg/mL SDV 4mL 40 MG IVP (05:30)
--- NOTE | 2022-02-09 06:37 | PC.NURSE ---
Referred pt to franchise business consultant hospitalist for review of Hemglobin dropping from 8.7 on 02/05 to 7.6 this am. Pt is receiving heprin for DVT prophylaxis at this time. Will await orders.
[2022-02-09] MEDS: budesonide 0.5 mg/2 mL Neb INHALATION ×2 (08:28→20:15)
[2022-02-09] MEDS: metoprolol tartrate 50 mg Tablet PO ×2 (08:45→17:44)
[2022-02-09] MEDS: folic acid 1 mg Tablet PO (08:45)
[2022-02-09] MEDS: tamsulosin 0.4 mg Capsule PO (08:45)
[2022-02-09] MEDS: thiamine 100 mg Tablet PO (08:45)
[2022-02-09] MEDS: gabapentin 300 mg Capsule PO (08:46)
[2022-02-09] MEDS: montelukast sodium 10 mg Tablet PO (08:46)
[2022-02-09] MEDS: aspirin 81 mg EC Tablet PO (08:46)
[2022-02-09] MEDS: azithromycin 500 MG in sodium chloride 0.9% 250 ML 250 MG IV (08:46)
[2022-02-09] MEDS: heparin 5,000 unit/mL INJ 1 mL 5000 UNIT SUBCUT (08:46)
[2022-02-09 09:42] LABS: Reticulocyte % 2.1 % (0.5-2.0)
[2022-02-09 10:17] LABS: Ferritin 302 ng/mL (30-400); Iron 64 ug/dL (59-158)
--- NOTE | 2022-02-09 11:56 | PM.PN ---
Subjective Subjective: no new complaints Medications: Reviewed: Yes Vitals/I&O/Wt Last Vital Signs Temp 97.7 F 02/09/22 07:42 Pulse 83 02/09/22 08:29 Resp 18 02/09/22 08:29 BP 161/87 02/09/22 07:42 Pulse Ox 96 02/09/22 08:29 O2 Del Method 02/09/22 08:29 O2 Flow Rate 4 02/09/22 08:29 02/08/22 02/09/22 02/09/22 22:59 06:59 14:59 Intake Total 910 / 1640 250 / 250 Output Total 325 / 1625 1400 / 3025 700 / 700 Balance 585 / 15 -1400 / -1385 -450 / -450 Weight last 48 hrs Weight 95.118 kg Weight 94.937 kg Physical Exam Narrative: pt awake and alert no acute distress s1s 2 rr per report Clear farshad per report Has LE edema Data : 02/09/22 04:38 02/09/22 04:38 Micro: Microbiology 02/08/22 05:19 Gram Stain - Final Sputum - Expectorated Sputum Sputum Culture - Preliminary A&P Assessment and plan (1) CKD (chronic kidney disease): 1.? Chronic kidney disease stage III: Patient's baseline creatinine in the 1 range, presented with a creatinine of 1.6 currently at 1.2 which is likely his baseline.? Recently had an CORY due to obstructive uropathy with a creatinine peak of 4 range.? Has indwelling Ashley catheter currently -Continue to monitor renal function, patient on diuretics- can change to pO lasix in AM -will give IV albumin -We will arrange nephrology follow-up at [place] with Dr. Stapleton 2.? Persistent hyperkalemia: Unclear etiology, likely has a component of RTA, lisinopril is on hold, obstructive uropathy because of RTA. -We will place on low potassium diet -Plan for Kayexalate x1 dose today -We will continue to monitor 3.? CHF exacerbation: Secondary to missing diuretics recently, resume diuretics at home dose -2 g sodium restriction and 1500 mill fluid restriction, -Patient on home O2 level 3 to 4 L at home 4. Hypomagnesemia : will give Mg sulphate Patient evaluated using audiovisual cart.? Discussed with hospitalist. Time spent within minutes. Attestations Medical Necessity Statement*: needs continued hospitalization for tx of copd exacerbation and chf exacerbation Coding Level of Care Code Acute Dementia Program Director for Chg Fwd Diagnoses CKD (chronic kidney disease) N18.9
[2022-02-09] MEDS: magnesium sulfate premix 2 GM/50 ML PIGGYBACK IV (13:31)
[2022-02-09] MEDS: acetaminophen 325 mg Tablet 650 MG PO (13:44)
[2022-02-09] MEDS: fluticasone nasal spray 16gm Btl 2 SPRAY INTRANASAL (13:44)
[2022-02-09] MEDS: saline nasal spray 44mL Btl 1 SPRAY NASAL (13:44)
--- NOTE | 2022-02-09 13:46 | P.PN_ITS ---
Subjective Subjective: Patient was seen this morning, he is able to ambulate to the bathroom, still complains of shortness of breath but his edema has improved, no lightheadedness, no dizziness, denies any bloody or black stools, no lower extremity pain, Vitals/I&O/Wt Last Vital Signs Temp 97.9 F 02/09/22 12:00 Pulse 73 02/09/22 12:00 Resp 18 02/09/22 12:00 BP 164/95 02/09/22 12:00 Pulse Ox 97 02/09/22 12:00 O2 Del Method 02/09/22 12:00 O2 Flow Rate 4 02/09/22 08:29 02/08/22 02/09/22 02/09/22 22:59 06:59 14:59 Intake Total 910 / 1640 250 / 250 Output Total 325 / 1625 1400 / 3025 700 / 700 Balance 585 / 15 -1400 / -1385 -450 / -450 Weight last 48 hrs Weight 95.118 kg Weight 94.937 kg Physical Exam Const: COMMON NORMALS: no acute distress and patient oriented x3 Resp: COMMON NORMALS: normal respiratory effort, No retractions, No use of accessory muscles and clear to auscultation bilaterally AUSCULTATION: clear to auscultation bilaterally Cardio: COMMON NORMALS: regular rate, regular rhythm, S1 normal heart sound present and S2 normal heart sound present RATE: regular rate RHYTHM: regular rhythm HEART SOUNDS: S1 normal heart sound present and S2 normal heart sound present GI: COMMON NORMALS: Normal to inspection, nondistended, normoactive bowel sounds present and non-tender Extremity: NARRATIVE EXTREMITY EXAM: 1+ pitting edema bilateral extremity OTHER: Bilateral DP PT pulses barely palpable Right lower extremity, dorsal aspect, superficial ulcer Neuro: COMMON NORMALS: patient oriented x3 Psych: COMMON NORMALS: mental status grossly normal Data : 02/09/22 04:38 02/09/22 04:38 Micro: Microbiology 02/08/22 05:19 Gram Stain - Final Sputum - Expectorated Sputum Sputum Culture - Preliminary A&P Assessment and plan (1) CKD (chronic kidney disease): (2) COPD (chronic obstructive pulmonary disease): (3) CHF exacerbation: (4) Acute kidney injury: (5) PAD (peripheral artery disease): (6) HTN (hypertension): (7) Dyslipidemia: Plan #Acute on chronic heart failure with preserved ejection fraction #COPD exacerbation #4Liters nasal cannula [id number] at home #CORY on CKD #Chronic anemia #History of abdominal aortic aneurysm #Hyperlipidemia, hypertension, peripheral artery disease #Hyperkalemia #History of alcoholism -Continue to diurese the patient. Lasix 40 IV twice daily -Receiving albumin ? Continue supplementation of nasal cannula ? Continue ceftriaxone, azithromycin - Solumedrol 60 q6H added ? Continue DuoNeb every 4 however as needed ? CORY most likely secondary to cardiorenal syndrome. Continue to diurese patient. Nephrology consult ? Venous Doppler ruled out DVT - Replete magnesium -Monitor for withdrawal symptoms -Bilateral extremity peripheral arterial disease, chronic limb ischemia, Doppler pulses, continue to monitor, active rewarming -Acute on chronic anemia, monitor hemoglobin iron studies, Hemoccult stool Full code DVT prophylaxis: Heparin currently on hold due to anemia Disposition: Home once medically stable Attestations Medical Necessity Statement*: Patient requires hospitalization for fluid overload, COPD, chronic anemia Coding Level of Care Code Acute Lever Tender for [facility] Fwd Diagnoses CKD (chronic kidney disease) N18.9 COPD (chronic obstructive pulmonary disease) J44.9 CHF exacerbation I50.9 Acute kidney injury N17.9 PAD (peripheral artery disease) I73.9 HTN (hypertension) I10 Dyslipidemia E78.5
[2022-02-09 14:50] LABS: Basophils % 0.1 %; Hematocrit 22.9 % (42.0-52.0); Hemoglobin 7.4 g/dL (11.7-16.6); Lymphocytes # 0.3 10^3/uL (0.8-4.8); Lymphocytes % 2.6 %; Mean Corpuscular HGB Conc 32.3 g/dL (30.0-36.0); Mean Corpuscular Hemoglobin 30.3 pg (28.0-34.0); Mean Corpuscular Volume 93.9 fl (80-94); Mean Platelet Volume 9.8 fL (7.4-10.4); Monocytes # 0.5 10^3/uL (0.2-0.9); Monocytes % 4.4 %; Neutrophils # 11.27 10^3/uL (1.8-7.7); Neutrophils % 92.3 %; Nucleated Red Blood Cells % 0 %; Platelet Count 261 10^3/cmm (130-400); Red Blood Count 2.44 10^6/uL (4.1-5.3); Red Cell Distribution Width 15.3 % (12.1-15.1); White Blood Count 12.2 10^3/uL (4.0-10.0)
[2022-02-09] MEDS: cefTRIAXone 1,000 MG in sodium chloride 0.9% (plus) 50 ML 100 MG IV (21:03)
[2022-02-09] MEDS: atorvastatin 40 mg Tablet PO (21:03)
[2022-02-10] VITALS (14 sets, daily range): BP systolic 138–164; BP diastolic 84–95; PULSE 71–85; RESP 13–26; TEMP 36.5–37; O2SAT 95–98
[2022-02-10] MEDS: ipratropium-albuterol 3 mL Neb INHALATION ×4 (03:08→21:05)
[2022-02-10] MEDS: FUROsemide 10 mg/mL SDV 4mL 40 MG IVP ×2 (05:17→17:03)
[2022-02-10 05:35] LABS: Basophils % 0.1 %; Hemoglobin 7.5 g/dL (11.7-16.6); Lymphocytes # 0.3 10^3/uL (0.8-4.8); Mean Corpuscular HGB Conc 32.6 g/dL (30.0-36.0); Mean Corpuscular Hemoglobin 30.6 pg (28.0-34.0); Mean Corpuscular Volume 93.9 fl (80-94); Monocytes # 0.4 10^3/uL (0.2-0.9); Monocytes % 3.4 %; Neutrophils # 10.25 10^3/uL (1.8-7.7); Neutrophils % 92.9 %; Nucleated Red Blood Cells % 0 %; Platelet Count 280 10^3/cmm (130-400); Red Blood Count 2.45 10^6/uL (4.1-5.3); Red Cell Distribution Width 15.4 % (12.1-15.1)
--- NOTE | 2022-02-10 05:51 | ECG_ITS ---
[facility] Test Date: 2022-02-10 Pat Name: Jamie Davison Department: Room: 254 Gender: Male Engineering Psychologist: : 1950 Requested By: Corina Rothman Order Number: [id number] Bob MD: Noel Mcclure M.D. Measurements Intervals [place] Rate: 80 P: 82 [place]: 262 QRS: 5 QRSD: 88 T: 55 QT: 399 QTc: 461 Interpretive Statements SINUS RHYTHM WITH FIRST DEGREE AV BLOCK WITH OCCASIONAL SUPRAVENTRICULAR PREMATURE COMPLEXES Compared to ECG 02/07/2022 17:42:35 No significant changes Electronically Signed On 02-10-2022 7:18:03 PET TRAINING INSTRUCTOR by Noel Mcclure M.D. [id number]
[2022-02-10 06:05] LABS: Alanine Aminotransferase 9 U/L (0-41); Albumin Level 3.7 g/dL (3.5-5.2); Alkaline Phosphatase 60 U/L (40-130); Anion Gap 15.5 (5-19); Aspartate Amino Transferase 16 U/L (0-40); Blood Urea Nitrogen 35 mg/dL (8-23); Calcium 9.1 mg/dL (8.5-10.5); Carbon Dioxide 28 mmol/L (22-29); Chloride 93 mmol/L (98-107); Globulin 2.9 g/dL (1.3-4.6); Glucose 122 mg/dL (65-115); Magnesium 1.8 mg/dL (1.7-2.3); NT Pro B Type Natriuretic Pept 11074 pg/mL (0-125); Osmolality Calculated 283 mOsm/kg (285-295); Phosphorus 4.4 mg/dL (2.5-4.5); Potassium 4.5 mmol/L (3.5-5.1); Sodium 132 mmol/L (136-145); Total Bilirubin 0.2 mg/dL (0.15-1.2); Total Protein 6.6 g/dL (6.6-8.7)
[2022-02-10] MEDS: metoprolol tartrate 1 mg/1 mL SDV 5 mL 5 MG IVP (06:25)
--- NOTE | 2022-02-10 08:17 | ECG_ITS ---
[facility] Test Date: 2022-02-10 Pat Name: Jamie Davison Department: Room: 254 Gender: Male Human Resources Assistant Manager: : 1950 Requested By: Timi Roque Order Number: [id number] Reading MD: Maverick Hunt Measurements Intervals [place] Rate: 71 P: 0 SC: 0 QRS: -5 QRSD: 87 T: 29 QT: 427 QTc: 467 Interpretive Statements Sinus rhtyhm with SVE First degree AV block Compared to prior EKG: Atrial pacing now intermittent Electronically Signed On 02-10-2022 9:37:07 SCHOOL PROGRAM DIRECTOR by Maverick Hunt [id number]
[2022-02-10] MEDS: budesonide 0.5 mg/2 mL Neb INHALATION ×2 (08:32→21:05)
[2022-02-10] MEDS: magnesium sulfate premix 2 GM/50 ML PIGGYBACK IV (08:37)
[2022-02-10] MEDS: tamsulosin 0.4 mg Capsule PO (08:38)
[2022-02-10] MEDS: montelukast sodium 10 mg Tablet PO (08:38)
[2022-02-10] MEDS: folic acid 1 mg Tablet PO (08:38)
[2022-02-10] MEDS: metoprolol tartrate 50 mg Tablet PO ×2 (08:38→17:03)
[2022-02-10] MEDS: predniSONE 20 mg Tablet 40 MG PO (08:38)
[2022-02-10] MEDS: azithromycin 500 MG in sodium chloride 0.9% 250 ML 250 MG IV (08:39)
[2022-02-10] MEDS: gabapentin 300 mg Capsule PO (08:39)
[2022-02-10] MEDS: aspirin 81 mg EC Tablet PO (08:39)
[2022-02-10] MEDS: thiamine 100 mg Tablet PO (08:40)
[2022-02-10 09:45] LABS: Troponin(5th) Baseline 27 ng/L (0-15)
--- NOTE | 2022-02-10 10:17 | ECG_ITS ---
[facility] Test Date: 2022-02-10 Pat Name: Jamie Davison Department: Room: 101 Gender: Male Packaging Sales Consultant: : 1950 Requested By: Timi Roque Order Number: [id number] Reading MD: Maverick Hunt Measurements Intervals [place] Rate: 75 P: 0 ND: 0 QRS: -7 QRSD: 85 T: 28 QT: 407 QTc: 455 Interpretive Statements Sinus rhtyhm with SVE ABNORMAL RHYTHM ECG Compared to ECG 02/10/2022 08:38:37 No interval change Note: Atrial pacing now intermittent was accidentally added to the previous EKG report. Electronically Signed On 02-10-2022 18:06:13 APPRAISER AUDITOR by Maverick Hunt [id number]
[2022-02-10] MEDS: acetaminophen 325 mg Tablet 650 MG PO (10:54)
[2022-02-10] MEDS: sucralfate 1 gm Tablet PO ×3 (10:55→21:15)
--- NOTE | 2022-02-10 11:06 | PM.PN ---
Subjective Subjective: Patient was seen this morning, he is sitting up in bed, complains of some chest discomfort, but not like last night, in which he went to [facility], currently he is in normal sinus rhythm, no lightheadedness, no dizziness, no nausea, no vomiting he is able to ambulate, is on 4 L he tells me that his edema today is a bit worse compared to yesterday Vitals/I&O/Wt Last Vital Signs Temp 98 F 02/10/22 08:00 Pulse 71 02/10/22 08:39 Resp 20 H 02/10/22 08:33 BP 153/90 02/10/22 08:00 Pulse Ox 97 02/10/22 08:33 O2 Del Method 02/10/22 08:33 O2 Flow Rate 4 02/10/22 08:33 02/09/22 02/10/22 02/10/22 22:59 06:59 14:59 Intake Total 2630 / 3410 126 / 3536 Output Total 1100 / 1800 600 / 2400 1600 / 1600 Balance 1530 / 1610 -474 / 1136 -1600 / -1600 Weight last 48 hrs Weight 89.358 kg Weight 95.118 kg Physical Exam Const: COMMON NORMALS: no acute distress and patient oriented x3 Resp: COMMON NORMALS: normal respiratory effort, No retractions, No use of accessory muscles and clear to auscultation bilaterally AUSCULTATION: clear to auscultation bilaterally Cardio: COMMON NORMALS: regular rate, regular rhythm, S1 normal heart sound present and S2 normal heart sound present RATE: regular rate RHYTHM: regular rhythm HEART SOUNDS: S1 normal heart sound present and S2 normal heart sound present GI: COMMON NORMALS: Normal to inspection, nondistended, normoactive bowel sounds present and non-tender Extremity: NARRATIVE EXTREMITY EXAM: 2+ pitting edema bilateral lower extremity Neuro: COMMON NORMALS: patient oriented x3 Psych: COMMON NORMALS: mental status grossly normal Data 02/10/22 04:29 02/10/22 04:29 Micro: Microbiology 02/08/22 05:19 Gram Stain - Final Sputum - Expectorated Sputum Sputum Culture - Preliminary A&P Assessment and plan (1) CKD (chronic kidney disease): (2) COPD (chronic obstructive pulmonary disease): (3) CHF exacerbation: (4) Acute kidney injury: (5) PAD (peripheral artery disease): (6) HTN (hypertension): (7) Dyslipidemia: (8) SVT (supraventricular tachycardia): (9) Chest pain: Plan #Acute on chronic heart failure with preserved ejection fraction #COPD exacerbation #4Liters nasal cannula tlexrh-lav-tgnps at home #CORY on CKD #Chronic anemia #History of abdominal aortic aneurysm #Hyperlipidemia, hypertension, peripheral artery disease #Hyperkalemia #History of alcoholism -Patient is edema has increased to 2+ pitting edema increase Lasix to 40 IV twice daily -Receiving albumin ? Continue supplementation of nasal cannula ? Continue ceftriaxone, azithromycin -Switch to prednisone 40 every 24 hours ? Continue DuoNeb every 4 however as needed ? CORY most likely secondary to cardiorenal syndrome. Continue to diurese patient. Nephrology consult ? Venous Doppler ruled out DVT - Replete magnesium today -Monitor for withdrawal symptoms -Bilateral extremity peripheral arterial disease, chronic limb ischemia, Doppler pulses, continue to monitor, active rewarming -Acute on chronic anemia, monitor hemoglobin iron studies, Hemoccult stool -Given patient's chest pain complaints, serial EKGs) troponins, his echocardiogram done 14 days ago showed an EF of 65%, n.p.o. midnight, stress test tomorrow morning -SVT replace potassium, magnesium, telemetry monitoring, monitor clinically, will move patient down to cardiac stepdown unit for closer monitoring -Acute on chronic anemia hemoglobin 7.5, no evidence of iron deficiency anemia, no bloody or black stools reported, awaiting Hemoccult stool hold heparin SCDs for DVT prophylaxis, Protonix, Carafate Full code DVT prophylaxis: Heparin currently on hold due to anemia, SCDs Disposition: Home once medically stable Attestations Medical Necessity Statement*: Patient required hospitalization for chest pain, CHF exacerbation, SVT, inpatient Coding Level of Care Code Acute Client Services Analyst for [facility] Fwd Diagnoses CKD (chronic kidney disease) N18.9 COPD (chronic obstructive pulmonary disease) J44.9 CHF exacerbation I50.9 Acute kidney injury N17.9 PAD (peripheral artery disease) I73.9 HTN (hypertension) I10 Dyslipidemia E78.5 SVT (supraventricular tachycardia) I47.1 Chest pain R07.9
--- NOTE | 2022-02-10 11:53 | P.PN_ITS ---
Subjective Subjective: No new complaints denies SOB Medications: Reviewed: Yes Vitals/I&O/Wt Last Vital Signs Temp 98 F 02/10/22 08:00 Pulse 71 02/10/22 08:39 Resp 20 H 02/10/22 08:33 BP 153/90 02/10/22 08:00 Pulse Ox 97 02/10/22 08:33 O2 Del Method 02/10/22 08:33 O2 Flow Rate 4 02/10/22 08:33 02/09/22 02/10/22 02/10/22 22:59 06:59 14:59 Intake Total 2630 / 3410 126 / 3536 Output Total 1100 / 1800 600 / 2400 1800 / 1800 Balance 1530 / 1610 -474 / 1136 -1800 / -1800 Weight last 48 hrs Weight 89.358 kg Weight 95.118 kg Physical Exam Const: COMMON NORMALS: no acute distress Resp: COMMON NORMALS: normal respiratory effort and No retractions Cardio: COMMON NORMALS: regular rate and regular rhythm RATE: regular rate RHYTHM: regular rhythm GI: COMMON NORMALS: Normal to inspection, nondistended, normoactive bowel sounds present Extremity: NARRATIVE EXTREMITY EXAM: 2+ pitting edema bilateral lower extremity Psych: COMMON NORMALS: mental status grossly normal Data : 02/10/22 04:29 02/10/22 04:29 Micro: Microbiology 02/08/22 05:19 Gram Stain - Final Sputum - Expectorated Sputum Sputum Culture - Final A&P Assessment and plan (1) CKD (chronic kidney disease): 1.? Chronic kidney disease stage III: Patient's baseline creatinine in the 1 range, presented with a creatinine of 1.6 currently at 1.2 which is likely his baseline.? Recently had an CORY due to obstructive uropathy with a creatinine peak of 4 range.? Has indwelling Ashley catheter currently -Continue to monitor renal function, patient on diuretics- can change to pO lasix at [place] -s/p IV albumin -arrange nephrology follow-up at [place] 2.? Persistent hyperkalemia: Unclear etiology, likely has a component of RTA, lisinopril is on hold, -We will place on low potassium diet -We will continue to monitor 3.? CHF exacerbation: Secondary to missing diuretics recently, resumed diuretics at home dose -2 g sodium restriction and 1500 mill fluid restriction, -Patient on home O2 level 3 to 4 L at home 4. Hypomagnesemia : improved Patient evaluated using audiovisual cart.? Discussed with hospitalist. Time spent within minutes Attestations Medical Necessity Statement*: Patient required hospitalization for chest pain, CHF exacerbation, SVT, inpatient Coding Level of Care Code Acute Hvac Mechanical Engineer for [facility] Fwd Diagnoses CKD (chronic kidney disease) N18.9
[2022-02-10 11:56] LABS: Troponin 5 2HR 28.03 ng/L (0-15)
[2022-02-10 11:57] LABS: Troponin 5 2HR Delta 1.03 ABS# (0-10)
[2022-02-10] MEDS: fluticasone nasal spray 16gm Btl 1 SPRAY INTRANASAL (12:42)
[2022-02-10] MEDS: tizanidine 4 mg Tablet PO (13:33)
--- NOTE | 2022-02-10 14:17 | ECG_ITS ---
[facility] Test Date: 2022-02-10 Pat Name: Jamie Davison Department: Room: 101 Gender: Male Magician Helper: : 1950 Requested By: Timi Roque Order Number: [id number] Reading MD: Maverick Hunt Measurements Intervals [place] Rate: 74 P: 94 [place]: 229 QRS: -3 QRSD: 82 T: 31 QT: 435 QTc: 485 Interpretive Statements SINUS RHYTHM WITH FIRST DEGREE AV BLOCK WITH OCCASIONAL SUPRAVENTRICULAR PREMATURE COMPLEXES PROLONGED QT INTERVAL Compared to ECG 02/10/2022 10:42:59 First degree AV block now present Prolonged QT interval now present Atrial fibrillation no longer present Electronically Signed On 02-10-2022 18:02:55 MONEY MARKET CLERK by Maverick Hunt [email or web address]/[id number]
[2022-02-10 15:36] LABS: Troponin 5 6HR 27.09 ng/L (0-15)
[2022-02-10 15:38] LABS: Troponin 5 6HR Delta 0.09 ng/L (0-12)
[2022-02-10] MEDS: pantoprazole DR 40 mg Tablet PO (17:03)
[2022-02-10] MEDS: cefTRIAXone 1,000 MG in sodium chloride 0.9% (plus) 50 ML 100 MG IV (20:39)
[2022-02-10] MEDS: atorvastatin 40 mg Tablet PO (20:40)
[2022-02-11] VITALS (21 sets, daily range): BP systolic 90–173; BP diastolic 69–106; PULSE 71–101; RESP 15–21; TEMP 36.4–37.2; O2SAT 93–100
[2022-02-11] MEDS: ipratropium-albuterol 3 mL Neb INHALATION ×3 (02:26→20:45)
[2022-02-11] MEDS: acetaminophen 325 mg Tablet 650 MG PO ×2 (04:06→19:22)
[2022-02-11] MEDS: tizanidine 4 mg Tablet PO (04:07)
[2022-02-11] MEDS: FUROsemide 10 mg/mL SDV 4mL 40 MG IVP ×2 (06:09→19:16)
[2022-02-11] MEDS: sucralfate 1 gm Tablet PO ×3 (06:09→21:17)
--- NOTE | 2022-02-11 06:15 | ECG_ITS ---
[facility] Test Date: 2022-02-11 Pat Name: Jamie Davison Department: Room: 101 Gender: Male On Awake Counselor: : 1950 Requested By: Timi Roque Order Number: [id number] Bob MD: Noel Mcclure M.D. Interpretive Statements NAME OF STUDY: LEXISCAN SESTAMIBI STRESS TEST INDICATION: Chest Pain, PROCEDURE: At the baseline, the EKG revealed normal sinus rhythm with a first-degree AV block. The baseline heart was 84 bpm with a blood pressue of 116/83 mm of Hg Lexiscan was infused over a period of 20 seconds. A total of 0.4 milligrams of Lexiscan was infused. The stress phase was continued for a total of 5 minutes. Heart rate at the end of the stress phase was 88 bpm with a blood pressure 125/78 mm of Hg. The EKG at the peak infusion revealed no significant changes. Sestamibi was injected 20 seconds after the Lexiscan infusion. Heart rate at the end of the recovery phase was 85 bpm with a blood pressure of 128/79 mm of Hg. CONCLUSION: 1. No significant EKG changes with the LexiScan infusion 2. No LexiScan induced chest pain or cardiac arrhythmia 3. Normal blood pressure and heart rate response 4. Sestamibi/sestamibi perfusion scan pending; see separate report. Electronically Signed On 02-15-2022 18:14:54 INSTRUCTOR OF SOCIOLOGY by Noel Mcclure M.D. [id number]
[2022-02-11 06:26] LABS: Eosinophils # 0.1 10^3/uL (0.0-0.8); Eosinophils % 0.8 %; Hematocrit 22.7 % (42.0-52.0); Hemoglobin 7.2 g/dL (11.7-16.6); Lymphocytes # 0.8 10^3/uL (0.8-4.8); Lymphocytes % 8.7 %; Mean Corpuscular HGB Conc 31.7 g/dL (30.0-36.0); Mean Corpuscular Hemoglobin 30.5 pg (28.0-34.0); Mean Corpuscular Volume 96.2 fl (80-94); Monocytes # 1.1 10^3/uL (0.2-0.9); Monocytes % 11.4 %; Neutrophils # 7.26 10^3/uL (1.8-7.7); Neutrophils % 78.1 %; Nucleated Red Blood Cells % 0 %; Platelet Count 256 10^3/cmm (130-400); Red Blood Count 2.36 10^6/uL (4.1-5.3); Red Cell Distribution Width 15.8 % (12.1-15.1); White Blood Count 9.3 10^3/uL (4.0-10.0)
[2022-02-11 07:09] LABS: Alanine Aminotransferase 20 U/L (0-41); Albumin Level 3.8 g/dL (3.5-5.2); Alkaline Phosphatase 59 U/L (40-130); Aspartate Amino Transferase 31 U/L (0-40); Blood Urea Nitrogen 38 mg/dL (8-23); Carbon Dioxide 32 mmol/L (22-29); Chloride 95 mmol/L (98-107); Globulin 2.5 g/dL (1.3-4.6); Glucose 82 mg/dL (65-115); Magnesium 1.8 mg/dL (1.7-2.3); NT Pro B Type Natriuretic Pept 12157 pg/mL (0-125); Osmolality Calculated 290 mOsm/kg (285-295); Phosphorus 3.2 mg/dL (2.5-4.5); Sodium 136 mmol/L (136-145); Total Bilirubin 0.2 mg/dL (0.15-1.2); Total Protein 6.3 g/dL (6.6-8.7)
[2022-02-11] MEDS: regadenoson 0.4 Mg/5 ml Syringe IVP (07:32)
--- NOTE | 2022-02-11 08:14 | PC.NURSE ---
When then nurse hooked up the EKG for the patients stress test at [address] at [address] Roque was notified. Orders were given to cancel the test at this time. When this nurse explained that to the patient he asked to talk with Dr. Roque. At this time, 0755, the patients HR was now 70-80's. Dr. Roque came to the bedside in [facility] to assess the patient. Will continue with the stress test at this time.
--- NOTE | 2022-02-11 09:08 | ECG_ITS ---
[facility] Test Date: 2022-02-11 Pat Name: Jamie Davison Department: Room: 101 Gender: Male Office Sweeper: : 1950 Requested By: Timi Roque Order Number: [id number] Bob MD: Gamaliel Varela M.D. Measurements Intervals [place] Rate: 89 P: 57 [place]: 258 QRS: 16 QRSD: 90 T: 47 QT: 351 QTc: 428 Interpretive Statements SINUS RHYTHM WITH FIRST DEGREE AV BLOCK WITH OCCASIONAL SUPRAVENTRICULAR PREMATURE COMPLEXES Compared to ECG 02/10/2022 14:44:08 Prolonged QT interval no longer present Electronically Signed On 02-13-2022 6:29:58 CATHEAD WORKER by Gamaliel Varela M.D. [id number]
[2022-02-11] MEDS: metoprolol tartrate 1 mg/1 mL SDV 5 mL 5 MG IVP (09:34)
--- NOTE | 2022-02-11 09:41 | ECG_ITS ---
[facility] Test Date: 2022-02-11 Pat Name: Jamie Davison Department: Room: 101 Gender: Male Biomass Technician: : 1950 Requested By: Timi Roque Order Number: [id number] Bob MD: Gamaliel Varela M.D. Measurements Intervals [place] Rate: 82 P: 0 [place]: 0 QRS: -2 QRSD: 90 T: 24 QT: 357 QTc: 419 Interpretive Statements SINUS RHYTHM WITH FIRST DEGREE AV BLOCK AND PACs Compared to ECG 02/11/2022 09:08:41 Ventricular premature complex(es) now present Aberrant conduction of supraventricular beat(s) now present Electronically Signed On 02-13-2022 6:29:50 PATTERNMAKER by Gamaliel Varela M.D. [email or web address] [email or web address]/[id number]
[2022-02-11 10:01] LABS: INR 0.99 (0.8-1.2)
[2022-02-11 10:06] LABS: Troponin(5th) Baseline 46 ng/L (0-15)
--- NOTE | 2022-02-11 10:13 | NMCV_ITS ---
NM andreina perf SPECT r/s* [id number] Jamie Davison Age: 71 Gender: M : 1950 Exam Date: 02/11/2022 07:00 Ordering Phys: Timi Roque MD Technologist: KATIE Melgar Exam Location: [facility] Indications: CHEST PAIN STRESS TEST Please see separate stress test report in Ephiphany for full findings IMAGE PROTOCOL Rest/Stress 1 Lexiscan Day Radiopharmaceutical Dose (mCi) Administration Site Administered by Rest: Tc-99m 9.7 IV KATIE Thompson Sestamibi Stress:Tc-99m 31.4 IV KATIE Thompson Sestamibi Rest: 11-Feb-2022 60 Discovery 630 Stress: 11-Feb-2022 30 Discovery 630 0.4mg Lexiscan. Supine position only as patient was unable to lay prone. SPECT RESULTS Technical Quality: Excellent Raw Data Analysis: Normal Image Corrections: No attenuation or motion correction applied Summed Stress Score: 13 Summed Rest Score: 7 Summed Difference Score: 7 PERFUSION FINDINGS There is a moderate sized, reversible perfusion defect noted in the apical, apical lateral and apical inferior corona. This is consistent with ischemia in LAD territory. There is large sized, partially reversible perfusion defect noted in the inferior and inferolateral corona. This is consistent with large sized prior infarct with cleo-infarct ischemia in the RCA and LCx territories FUNCTIONAL RESULTS (calculated via Gated SPECT) Stress Image LV EF (%): 56 Stress EDV (mL):91 TID: 1.83 Stress ESV (mL):40 FUNCTIONAL FINDINGS: There is normal left ventricular systolic function. Elevated TID ratio suggestive of multivessel disease/subendocardial ischemia IMPRESSIONS 1. Abnormal myocardial perfusion imaging with moderate sized area of ischemia seen in LAD territory. There is large sized prior infarct with cleo-infarct ischemia seen in the LCx and RCA territory. 2. LV systolic function is normal 3. Elevated TID ratio suggestive of multivessel CAD/subendocardial ischemia Gamaliel Varela MD (Electronically Signed) Final Date: 11 February 2022 12:24 S
[2022-02-11] MEDS: azithromycin 250 mg Tablet PO (10:25)
[2022-02-11] MEDS: montelukast sodium 10 mg Tablet PO (10:25)
[2022-02-11] MEDS: predniSONE 20 mg Tablet 40 MG PO (10:26)
[2022-02-11] MEDS: thiamine 100 mg Tablet PO (10:26)
[2022-02-11] MEDS: folic acid 1 mg Tablet PO (10:26)
[2022-02-11] MEDS: aspirin 81 mg EC Tablet PO (10:26)
[2022-02-11] MEDS: gabapentin 300 mg Capsule PO (10:26)
[2022-02-11] MEDS: tamsulosin 0.4 mg Capsule PO (10:26)
[2022-02-11] MEDS: pantoprazole DR 40 mg Tablet PO ×2 (10:27→17:53)
[2022-02-11] MEDS: metoprolol tartrate 50 mg Tablet PO ×2 (10:27→17:54)
--- NOTE | 2022-02-11 10:28 | PM.PN ---
Subjective Subjective: no new complaints plan for PRBC transfusion Medications: Reviewed: Yes Vitals/I&O/Wt Last Vital Signs Temp 97.8 F 02/11/22 04:00 Pulse 86 02/11/22 08:13 Resp 21 H 02/11/22 04:00 BP 128/79 02/11/22 08:13 Pulse Ox 94 02/11/22 04:00 O2 Del Method 02/11/22 04:00 O2 Flow Rate 2 02/11/22 04:00 FiO2 4 02/10/22 14:47 02/10/22 02/11/22 02/11/22 22:59 06:59 14:59 Intake Total 970 / 1350 200 / 1550 Output Total 1200 / 3190 575 / 3765 Balance -230 / -1840 -375 / -2215 Weight last 48 hrs Weight 96.814 kg Weight 89.358 kg Physical Exam Const: COMMON NORMALS: no acute distress Resp: COMMON NORMALS: normal respiratory effort and No retractions GI: COMMON NORMALS: Normal to inspection, nondistended, normoactive bowel sounds present Extremity: NARRATIVE EXTREMITY EXAM: 2+ pitting edema bilateral lower extremity Psych: COMMON NORMALS: mental status grossly normal Data 02/11/22 06:05 02/11/22 06:05 Micro: Microbiology 02/08/22 05:19 Gram Stain - Final Sputum - Expectorated Sputum Sputum Culture - Final A&P Assessment and plan (1) CKD (chronic kidney disease): [place] [address] Progress Note Signed Patient: Jamie Davison MR#: [id number] : 1950 Age/Sex: 71 / M ADM Date: 02/05/22 Loc: [facility]SU? Room/Bed: [facility] [place] Encounter Date: 02/10/[address]: Timi Roque MD Report Number: [id number] Subjective Subjective:?? No new complaints denies SOB Medications:?? Reviewed: Yes Vitals/I&O/Wt Last Vital Signs Temp ?98 F ?02/10/22 08:00 Pulse ?71 ?02/10/22 08:39 Resp ?20 H ?02/10/22 08:33 BP ?153/90 ?02/10/22 08:00 Pulse Ox ?97 ?02/10/22 08:33 O2 Del Method ? ?02/10/22 08:33 O2 Flow Rate ?4 ?02/10/22 08:33 ? 02/09/22 02/10/22 02/10/22 ? 22:59 06:59 14:59 Intake Total 2630 / 3410 126 / 3536 ? Output Total 1100 / 1800 600 / 2400 1800 / 1800 Balance 1530 / 1610 -474 / 1136 -1800 / -1800 Weight last 48 hrs Weight? 89.358 kg ? Weight? 95.118 kg ? Physical Exam Const:?? COMMON NORMALS: no acute distress Resp:?? COMMON NORMALS: normal respiratory effort and No retractions Cardio:?? COMMON NORMALS: regular rate and regular rhythm? RATE: regular rate? RHYTHM: regular rhythm GI:?? COMMON NORMALS: Normal to inspection, nondistended, normoactive bowel sounds present Extremity:?? NARRATIVE EXTREMITY EXAM: 2+ pitting edema bilateral lower extremity Psych:?? COMMON NORMALS: mental status grossly normal Data : 02/10/22 04:29? 02/10/22 04:29? Micro: Microbiology ?02/08/22 05:19 Gram Stain - Final ?Sputum - Expectorated Sputum Sputum Culture - Final A&P Assessment and plan (1) CKD (chronic kidney disease): 1.? Chronic kidney disease stage III: Patient's baseline creatinine in the 1 range, presented with a creatinine of 1.6 currently at 1.2 which is likely his baseline.? Recently had an CORY due to obstructive uropathy with a creatinine peak of 4 range.? Has indwelling Ashley catheter currently -Continue to monitor renal function, patient on diuretics- can change to pO lasix at [place] -s/p? IV albumin -arrange nephrology follow-up at [place] 2.? Persistent hyperkalemia: Unclear etiology, likely has a component of RTA, lisinopril is on hold, -We will place on low potassium diet -We will continue to monitor 3.? CHF exacerbation: Secondary to missing diuretics recently, resumed diuretics at home dose -2 g sodium restriction and 1500 mill fluid restriction, -Patient on home O2 level 3 to 4 L at home 4. Hypomagnesemia : improved 5. anemia : plan for transfusion today Patient evaluated using audiovisual cart.? Discussed with hospitalist. Time spent within minutes Attestations Medical Necessity Statement*: Patient required hospitalization for chest pain, CHF exacerbation, SVT, inpatient Coding Level of Care Code Acute Ribbon Tier for Chg Fwd Diagnoses CKD (chronic kidney disease) N18.9
[2022-02-11] MEDS: magnesium sulfate premix 2 GM/50 ML PIGGYBACK IV (10:36)
[2022-02-11] MEDS: fluticasone nasal spray 16gm Btl 1 SPRAY INTRANASAL (10:36)
--- NOTE | 2022-02-11 11:07 | ECG_ITS ---
[facility] Test Date: 2022-02-11 Pat Name: Jamie Davison Department: Room: 101 Gender: Male Crane Operator: : 1950 Requested By: Timi Roque Order Number: [id number] Bob MD: Gamaliel Varela M.D. Measurements Intervals [place] Rate: 84 P: 94 [place]: 256 QRS: 3 QRSD: 90 T: 25 QT: 397 QTc: 472 Interpretive Statements SINUS RHYTHM WITH FIRST DEGREE AV BLOCK WITH OCCASIONAL SUPRAVENTRICULAR PREMATURE COMPLEXES Compared to ECG 02/11/2022 09:41:12 First degree AV block now present Atrial fibrillation no longer present Ventricular premature complex(es) no longer present Aberrant conduction of supraventricular beat(s) no longer present Electronically Signed On 02-13-2022 6:35:54 PHYSICAL EDUCATION SPECIALIST by Gamaliel Varela M.D. [email or web address] county general hospitalPlutoragerman hospital.Proclivity Systems/store/[id number]
--- NOTE | 2022-02-11 11:38 | PC.CHAP ---
Pastoral Care Encounter/Spiritual Assessment Type of Contact [] Declined bobbin winder tender visit [] Patient/Family/Request visit [] Outpatient visit [] Follow-up visit [] Physician referral [] Code/Alert [x] Routine visit [] Staff referral [] Actively dying [] Patient sleeping [] Family support [] [] Out of room [] Palliative care [] [x] Receiving care in room [] Pre-surgical visit [] Trauma [] Long length of stay [x] ICU visit [] Other: Relational/Emotional Strength [] Patient feels connected with others/family/visitors/staff [] Distress [] Loneliness/isolation [] Abandonment Spirituality of Patient [] Person of Karlene [] Attends Faith of their Karlene [] Believes in Prayer [] Reads Bible or Roman Catholic materials [] There are Spiritual issues to be addressed Hand Heel Seat Fitter Interventions [x] Prayer [] Active listening [] Non-anxious presence [] Spiritual/emotional support [] Crisis/trauma care [] Spiritual counseling [] Bereavement support [] Provided bereavement packet [] Provided Bible/devotional materials [] Provided toy/stuffed animal, coloring book to patient or family member [] Provided Communion [] Anointing/[place] [] Salvation [x] Completed spiritual assessment [] Other: Impact on Illness or Injury [] Angry [] Fearful [] Anxious [] Often cries [] Exhaustion [] Unable to work [] Unable to attend gnosticism [] Unable to walk/stand [] Unable to read [] Unable to drive [] Unable to eat/drink [] Unable to sleep [] Unable to be with family [] Patient intubated [] Other: Summary Time spent with patient
[2022-02-11 12:41] LABS: Troponin 5 2HR 52.39 ng/L (0-15); Troponin 5 2HR Delta 6.39 ABS# (0-10)
[2022-02-11 13:47] LABS: Eosinophils # 0.1 10^3/uL (0.0-0.8); Hematocrit 25.5 % (42.0-52.0); Hemoglobin 8.1 g/dL (11.7-16.6); Lymphocytes # 0.4 10^3/uL (0.8-4.8); Lymphocytes % 3.8 %; Mean Corpuscular HGB Conc 31.8 g/dL (30.0-36.0); Mean Corpuscular Hemoglobin 30.9 pg (28.0-34.0); Mean Corpuscular Volume 97.3 fl (80-94); Mean Platelet Volume 9.9 fL (7.4-10.4); Monocytes # 1.1 10^3/uL (0.2-0.9); Monocytes % 9.8 %; Neutrophils # 9.06 10^3/uL (1.8-7.7); Neutrophils % 84.8 %; Nucleated Red Blood Cells % 0 %; Platelet Count 284 10^3/cmm (130-400); Red Blood Count 2.62 10^6/uL (4.1-5.3); Red Cell Distribution Width 15.9 % (12.1-15.1); White Blood Count 10.7 10^3/uL (4.0-10.0)
[2022-02-11] MEDS: polyethylene glycol 3350 Pkt 17 gm PO (14:21)
--- NOTE | 2022-02-11 15:04 | ECG_ITS ---
[facility] Test Date: 2022-02-11 Pat Name: Jamie Davison Department: Room: 101 Gender: Male Medical Doctor: : 1950 Requested By: Timi Roque Order Number: [id number] Bob MD: Gamaliel Varela M.D. Measurements Intervals Lillian Rate: 79 P: 61 ME: 269 QRS: -2 QRSD: 92 T: 25 QT: 388 QTc: 445 Interpretive Statements SINUS RHYTHM WITH FIRST DEGREE AV BLOCK WITH OCCASIONAL SUPRAVENTRICULAR PREMATURE COMPLEXES Compared to ECG 02/11/2022 10:38:38 No significant changes Electronically Signed On 02-13-2022 6:33:56 BOLT SORTER by Gamaliel Varela M.D. [id number]
--- NOTE | 2022-02-11 16:26 | P.PN_ITS ---
Subjective Subjective: - Patient was seen early this morning, in the stress lab, his heart rates were in the 150s, when I arrived, he was normal sinus rhythm heart rates in the 70s, he tells me that when he stood up his heart rates come to the 150s and he felt short of breath and he was doing better -After his stress test he was brought back to the cardiac stepdown unit, he is heart rates went back into the 160s, on the rhythm it looked like atrial fibrillation, possibly SVT. He was advised to bear down, was given vagal maneuvers, carotid massage but his heart rate somewhat improved to the 120s. Was given 5 mg IV push metoprolol, and his heart rates came down to the 70s. His EKG did show atrial fibrillation. -Alert oriented x3, following commands, no chest pain, palpitations, no shortness of breath, he was monitored throughout the afternoon, remained normal sinus rhythm, 80s -100s, his morning metoprolol was given, it seems like that also helped -Patient's stress test showed abnormalities in the left circumflex territory RCA territory, -He has severe peripheral vascular disease, was supposed to have stenting as outpatient however it was delayed given CORY, improved with hydration, but never followed up, he has severe peripheral vascular disease bilaterally -And now has A. fib with RVR -Now has anemia hemoglobin 7.2, where he is required 1 unit PRBC Hemoccult stool is pending, which I am concerned is likely related to his alcoholism, possible slow GI bleed -The ultimate issue that I was honest with patient is how to we anticoagulate him or put 1 antiplatelet agents given his anemia -Worst case scenario is we put a stent in him and now he needs to be on dual antiplatelet therapy and he develops a GI bleed, in the case of A. fib we put him on anticoagulation he develops a GI bleed given his history of alcoholism, it could be gastritis it could be a polyp, worst-case scenario esophageal varices, which associate with significant morbidity or mortality -I had a detailed discussion with patient, and family at bedside -We can try to medically manage him, will do an upper GI series tomorrow see what that shows, we will consider putting him on Plavix monitoring his hemoglobin I have consulted cardiology to see him, I have ordered a repeat cardiac echocardiogram limited, monitor his hemoglobin for the next 24 hours, all parties in agreement Vitals/I&O/Wt Last Vital Signs Temp 98 F 02/11/22 14:37 Pulse 83 02/11/22 14:37 Resp 16 02/11/22 14:37 BP 147/89 02/11/22 14:15 Pulse Ox 99 02/11/22 14:37 O2 Del Method 02/11/22 13:59 O2 Flow Rate 3 02/11/22 13:59 FiO2 4 02/10/22 14:47 02/11/22 02/11/22 02/11/22 06:59 14:59 22:59 Intake Total 200 / 1550 390 / 390 Output Total 575 / 3765 250 / 250 Balance -375 / -2215 140 / 140 Weight last 48 hrs Weight 96.814 kg Weight 89.358 kg Physical Exam Const: COMMON NORMALS: no acute distress and patient oriented x3 Resp: COMMON NORMALS: normal respiratory effort, No retractions, No use of accessory muscles and clear to auscultation bilaterally AUSCULTATION: clear to auscultation bilaterally Cardio: COMMON NORMALS: regular rate, regular rhythm, S1 normal heart sound present and S2 normal heart sound present RATE: regular rate RHYTHM: regular rhythm HEART SOUNDS: S1 normal heart sound present and S2 normal heart sound present GI: COMMON NORMALS: Normal to inspection, nondistended, normoactive bowel sounds present and non-tender Extremity: NARRATIVE EXTREMITY EXAM: 1+ edema Neuro: COMMON NORMALS: patient oriented x3 Psych: COMMON NORMALS: mental status grossly normal Data 02/11/22 13:37 02/11/22 06:05 Micro: Microbiology 02/08/22 05:19 Gram Stain - Final Sputum - Expectorated Sputum Sputum Culture - Final A&P Assessment and plan (1) CKD (chronic kidney disease): (2) COPD (chronic obstructive pulmonary disease): (3) CHF exacerbation: (4) Acute kidney injury: (5) PAD (peripheral artery disease): (6) HTN (hypertension): (7) Dyslipidemia: (8) SVT (supraventricular tachycardia): (9) Chest pain: (10) Afib: (11) SVT (supraventricular tachycardia): (12) CAD (coronary artery disease): (13) GI bleed: (14) Positive cardiac stress test: (15) Vasculopathy: Plan #Acute on chronic heart failure with preserved ejection fraction #COPD exacerbation #4Liters nasal cannula [id number] at home #CORY on CKD #Chronic anemia #History of abdominal aortic aneurysm #Hyperlipidemia, hypertension, peripheral artery disease #Hyperkalemia #History of alcoholism -Patient is edema, 1+, continue Lasix 40 IV twice daily -Receiving albumin ? Continue supplementation of nasal cannula ? Continue ceftriaxone, azithromycin for COPD observation -Switch to prednisone 40 every 24 hours ? Continue DuoNeb every 4 however as needed ? CORY most likely secondary to cardiorenal syndrome. Continue to diurese patient. Nephrology consult ? Venous Doppler ruled out DVT - Replete magnesium today -Monitor for withdrawal symptoms -Bilateral extremity peripheral arterial disease, chronic limb ischemia, Doppler pulses, continue to monitor, active rewarming -Acute on chronic anemia, likely mixed, normal iron, normal ferritin, Hemoccult stool pending, hemoglobin 7.2, transfuse 1 unit PRBC, Protonix, Carafate, upper GI series ordered -Given patient's chest pain complaints, serial EKGs) troponins, his echocardiogram done 14 days ago showed an EF of 65%, n.p.o. -Stress test positive, showing concerns for ischemia in the left circumflex RCA territory, continue aspirin, statin, beta-marnie, cardiology consulted, repeat echocardiogram -SVT versus A. fib replace potassium, magnesium, telemetry monitoring, monitor clinically, currently on CIWA 2, continue metoprolol -Paroxysmal atrial fibrillation, continue metoprolol anticoagulation on hold as concerns for anemia -Vasculopathy -Chest pain and shortness of breath, likely due to anemia, chest pain, positive stress test, fluid overload Full code DVT prophylaxis: Heparin currently on hold due to anemia, SCDs Disposition: Home once medically stable Attestations Medical Necessity Statement*: Patient requires hospitalization for Coding Level of Care Code Acute Automatic Grinding Machine Operator for Chg Fwd Diagnoses CKD (chronic kidney disease) N18.9 COPD (chronic obstructive pulmonary disease) J44.9 CHF exacerbation I50.9 Acute kidney injury N17.9 PAD (peripheral artery disease) I73.9 HTN (hypertension) I10 Dyslipidemia E78.5 SVT (supraventricular tachycardia) I47.1 Chest pain R07.9 Afib I48.91 SVT (supraventricular tachycardia) I47.1 CAD (coronary artery disease) I25.10 GI bleed K92.2 Positive cardiac stress test R94.39 Vasculopathy I99.9
[2022-02-11 16:30] LABS: Troponin 5 6HR 47.69 ng/L (0-15)
[2022-02-11 16:31] LABS: Troponin 5 6HR Delta 1.69 ng/L (0-12)
--- NOTE | 2022-02-11 16:37 | USCV_ITS ---
Transthoracic Echo Jamie Davison Age: 71 Gender: M : 1950 Exam Date: 02/11/2022 18:11 Ordering Phys: Timi Roque MD Technologist: YOLIE Exam Location: [facility] – [place] Indication: NSTEMI, No history of cardiac intervention per patient. BP: 147 / 89 HR: 75 Rhythm: Sinus Technical Quality: Adequate MEASUREMENTS (Male / Female) Normal Values 2D ECHO LV Diastolic Diameter PLAX 3.6 cm 4.2 - 5.9 / 3.9 - 5.3 cm LV Systolic Diameter PLAX 2.4 cm IVS Diastolic Thickness 2.2 cm 0.6 - 1.0 / 0.6 - 0.9 cm IVS Systolic Thickness 3.4 cm LVPW Diastolic Thickness 1.3 cm 0.6 - 1.0 / 0.6 - 0.9 cm LVPW Systolic Thickness 1.4 cm LVOT Diameter 2.3 cm LV Ejection Fraction 2D Teich 63.6 % LV Ejection Fraction MOD 2C 69.8 % LV Ejection Fraction 2C AL 70.6 % LA Diameter 4.6 cm LA Width 4.7 cm LA Height 6.4 cm RA Width 4.7 cm RA Height 5.3 cm Aorta at Sinotubular Diameter 3.4 cm IVC Diameter 2.7 cm M-MODE Aortic Annulus Diameter 4.2 cm LA Ao Ratio MM 1.1 MV E Point Septal Separation 0.0 cm DOPPLER AV Peak Velocity 114.0 cm/s LVOT Peak Velocity 86.0 cm/s AV Area Cont Eq vti 3.3 cm squared AV Area Cont Eq pk 3.1 cm squared MV Peak Velocity 123.0 cm/s MV Area PHT 3.3 cm squared Mitral E to A Ratio 1.2 MV E' Velocity 56.0 cm/s Mitral E to MV E' Ratio 9.5 Mitral E to LV E' Lateral Ratio 10.7 Mitral E to LV E' Septal Ratio 8.6 TR Peak Velocity 353.0 cm/s TR Peak Gradient 49.8 mmHg TV Peak E Velocity 53.0 cm/s Right Atrial Pressure 10.0 mmHg Pulmonary Artery Systolic Pressu 59.8 mmHg PV Peak Velocity 92.0 cm/s RV Acceleration Time 0.2 s RV Ejection Time 0.4 s RV AcT/ET 0.4 FINDINGS Left Ventricle Left ventricle is normal in size. LV systolic function is normal with EF 60 to 65%. No regional wall motion abnormalities are seen. Right Ventricle RV is normal in size and function Right Atrium Normal in size Left Atrium Dilated Mitral Valve Structurally normal. Moderate mitral regurgitation Aortic Valve Aortic valve is thickened. Trace aortic regurgitation. No significant stenosis. Tricuspid Valve Moderate tricuspid regurgitation. RVSP is >60mmHg. This is consistent with severe pulmonary hypertension Pulmonic Valve Mild pulmonic regurgitation Pericardium Normal Aorta Aortic root is normal in size IVC CONCLUSIONS LV systolic function is normal with EF of 60 to 65%. Dilated left atrium Moderate mitral regurgitation Aortic valve is thickened. Trace aortic regurgitation. Moderate tricuspid regurgitation. Severe pulmonary hypertension Mild pulmonic regurgitation Compared to prior ecchocardiogram from 01/28/2022, this echocardiogram shows severe pulmonary hypertension and moderate mitral regurgitation Gamaliel Varela MD (Electronically Signed) Final Date: 12 February 2022 14:23 S
--- NOTE | 2022-02-11 16:39 | P.CONIM_ITS ---
Providers/Reason For Consult Consulting Physician/Specialty*: Gamaliel Varela MD/Cardiology Reason for Consult*: Chest pain/ abnormal stress test Requesting Physician: Dr Roque Attending Physician: Timi Roque MD Primary Care Provider: Timi Roque MD History of Present Illness History of Present Illness Jamie Davison is a 71 year old male with past medical history of COPD, HFpEF, significant PAD with plans for revascularization which could not be performed secondary to significant renal function worsening, recent alcohol withdrawal came to the hospital with orthopnea, dyspnea on exertion. During hospitalization initially went into SVT and later in atrial fibrillation. His hemoglobin is low. Also complains of chest tightness. He underwent stress test that was abnormal and showed moderate sized area of ischemia in LAD territory and prior infarct with cleo-infarct ischemia in LCx and RCA territories. Hemoglobin is 7.2. He is going to get transfusion. ECHO shows preserved LV systolic function. NT Pro BNP is elevated. Troponin was elevated but did not trend up significantly. Review of Systems Const: Denies: fever(s), chills, body aches or malaise Eyes: Denies: change in vision, eye discomfort or eye redness ENMT: Denies: throat pain, oral sores or ear or mastoid pain Card: Reports: chest pain, edema, swelling of feet/ankles, dyspnea on exertion and orthopnea; Denies: pre-syncope Resp: Reports: dyspnea, non-productive cough and pain on inspiration; Denies: change in phlegm color or hemoptysis GI: Denies: abdominal pain, nausea, vomiting, diarrhea, constipation, hematochezia or melena : Denies: flank pain, difficulty urinating, urinary frequency or hematuria Musc: Denies: back pain, joint swelling or joint redness Skin/Breast: Denies: rash or new lesions Neuro: Denies: headache(s), numbness in extremities, weakness in extremities, dizziness, confusion or seizure-like activity Endo: Denies: polyuria or polydipsia Riaz/Lymph: Denies: easy bleeding or tender lymph nodes All/Imm: Denies: urticaria or tongue swelling Medications/Allergies Home Medications Medication Instructions Recorded Confirmed Last Taken Type albuterol sulfate 90 mcg/actuation 2 puff inhalation Q4H PRN 09/20/19 02/05/22 Unknown History aerosol inhaler (Ventolin HFA) Shortness Of Breath budesonide-formoterol HFA 160 2 puff inhalation BID 09/20/19 02/05/22 02/05/22 History mcg-4.5 mcg/actuation aerosol inhaler (Symbicort) fluticasone propionate 50 2 spray intranasal DAILY PRN 09/20/19 02/05/22 Unknown History mcg/actuation nasal Allergy Symptoms spray,suspension (Flonase Allergy Relief) ipratropium 0.5 mg-albuterol 3 mg 3 ml inhalation Q6H PRN Shortness 09/20/19 02/05/22 Unknown History (2.5 mg base)/3 mL nebulization Of Breath soln montelukast 10 mg tablet 10 mg PO DAILY 09/20/19 02/05/22 02/05/22 History (Singulair) tizanidine 4 mg capsule 4 mg PO Q8H PRN Muscle Spasm 09/20/19 02/05/22 Unknown History metoprolol tartrate 50 mg tablet 50 mg PO BID 08/09/20 02/05/22 02/05/22 History lisinopril 20 mg tablet 20 mg PO DAILY #90 tabs 03/26/21 02/05/22 02/05/22 Rx furosemide 20 mg tablet 20 mg PO DAILY may take extra tab 01/28/22 02/05/22 02/05/22 History if increase in swelling magnesium L-lactate 84 mg 84 mg PO .3-4 TIMES A WEEK 01/28/22 02/05/22 02/05/22 History tablet,extended release (Magtab) multivitamin 1 tab PO DAILY 01/28/22 02/05/22 02/05/22 History aspirin 81 mg tablet,delayed 81 mg PO DAILY 30 days #30 tabs 01/29/22 02/05/22 02/05/22 Rx release atorvastatin 40 mg tablet 40 mg PO BEDTIME 30 days #30 tabs 01/29/22 02/05/22 02/04/22 Rx folic acid 1 mg tablet 1 mg PO DAILY 30 days #30 tabs 01/29/22 02/05/22 02/05/22 Rx gabapentin 300 mg capsule 300 mg PO DAILY #30 caps 01/29/22 02/05/22 02/05/22 Rx tamsulosin 0.4 mg capsule (Flomax) 0.4 mg PO DAILY 30 days #30 caps 01/29/22 02/05/22 02/05/22 Rx thiamine mononitrate (vit B1) 100 100 mg PO DAILY 30 days #30 tabs 01/29/22 02/05/22 02/05/22 Rx mg tablet (Vitamin B-1 (mononitrate)) Allergies Allergy/AdvReac Type Severity Reaction Status Date / Time bupropion [From Wellbutrin] Allergy Mild ALGY-Hives Verified 02/05/22 15:02 Current Medications Generic Name Dose Route Start Last Admin Trade Name Freq PRN Reason Stop Dose Admin Acetaminophen 650 mg 02/05/22 20:31 02/11/22 04:06 Acetaminophen 325 Mg Tablet PO 650 mg Q6H PRN Administration Mild/Mod Pain Or Temp >/= 101 Albuterol Sulfate 2.5 mg 02/05/22 20:29 02/06/22 06:31 Albuterol 2.5 Mg/3 Ml Neb INHALATION 2.5 mg Q4H PRN Administration Shortness Of Breath Albuterol/Ipratropium 3 ml 02/06/22 02:00 02/11/22 13:57 Ipratropium-Albuterol 3 Ml Neb INHALATION 3 ml Q6H.RESP JONAS Administration Aspirin 81 mg 02/06/22 09:00 02/11/22 10:26 Aspirin 81 Mg Ec Tablet PO 81 mg DAILY JONAS Administration Atorvastatin Calcium 40 mg 02/05/22 21:00 02/10/22 20:40 Atorvastatin 40 Mg Tablet PO 40 mg BEDTIME JONAS Administration Azithromycin 250 mg 02/11/22 09:00 02/11/22 10:25 Azithromycin 250 Mg Tablet PO 250 mg DAILY JONAS Administration Protocol Budesonide 0.5 mg 02/07/22 20:10 02/11/22 09:01 Budesonide 0.5 Mg/2 Ml Neb INHALATION Not Given BID.RESPIRATORY JONAS Fluticasone Propionate 1 spray 02/10/22 11:24 02/11/22 10:36 Fluticasone Nasal [place] 16gm Btl INTRANASAL 1 spray DAILY JONAS Administration Folic Acid 1 mg 02/06/22 09:00 02/11/22 10:26 Folic Acid 1 Mg Tablet PO 1 mg DAILY JONAS Administration Furosemide 40 mg 02/10/22 18:00 02/11/22 06:09 Furosemide 10 Mg/Ml Sdv 4ml IVP 40 mg Q12H JONAS Administration Gabapentin 300 mg 02/06/22 09:00 02/11/22 10:26 Gabapentin 300 Mg Capsule PO 300 mg DAILY JONAS Administration Heparin Sodium (Porcine) 5,000 unit 02/05/22 20:45 02/09/22 08:46 Heparin 5,000 Unit/Ml Inj 1 Ml SUBCUT 5,000 unit Q12H JONAS Administration Ceftriaxone Sodium 1,000 mg/ 50 mls @ 100 mls/hr 02/07/22 20:30 02/10/22 21:20 Sodium Chloride IV Infused Q24H JONAS Infusion Protocol Albumin Human 25 gm in 100 mls @ 60 mls/hr 02/10/22 13:00 02/11/22 14:22 Albumin IV Infused Q8H JONAS Infusion Metoprolol Tartrate 50 mg 02/06/22 09:00 02/11/22 10:27 Metoprolol Tartrate 50 Mg Tablet PO 50 mg BID JONAS Administration Montelukast Sodium 10 mg 02/06/22 09:00 02/11/22 10:25 Montelukast Sodium 10 Mg Tablet PO 10 mg DAILY JONAS Administration Multivitamins/Minerals 1 tab 02/06/22 09:00 02/11/22 10:49 Multivitamin W/Minerals Tablet PO Not Given DAILY [facility] Pantoprazole Sodium 40 mg 02/10/22 18:00 02/11/22 10:[address] 40 Mg Tablet PO 40 mg BID JONAS Administration Prednisone 40 mg 02/10/22 09:00 02/11/22 10:26 Prednisone 20 Mg Tablet PO 40 mg DAILY JONAS Administration Sodium Chloride 1 spray 02/07/22 20:08 02/09/22 13:44 Saline Nasal [place] 44ml Btl NASAL 1 spray PRN PRN Administration DRYNESS Sucralfate 1 gm 02/10/22 11:00 02/11/22 12:08 Sucralfate 1 Gm Tablet PO Not Given AC&BEDTIME JONAS Tamsulosin HCl 0.4 mg 02/06/22 09:00 02/11/22 10:26 Tamsulosin 0.4 Mg Capsule PO 0.4 mg DAILY JONAS Administration Thiamine Mononitrate 100 mg 02/06/22 09:00 02/11/22 10:26 Thiamine 100 Mg Tablet PO 100 mg DAILY JONAS Administration Tizanidine HCl 4 mg 02/05/22 20:29 02/11/22 04:07 Tizanidine 4 Mg Tablet PO 4 mg Q8H PRN Administration Muscle Spasm PFSH Acute PFSH: Medical History (Updated 02/13/22 @ 12:58 by Timi Roque MD) AAA (abdominal aortic aneurysm) CHF (congestive heart failure) COPD (chronic obstructive pulmonary disease) Dyslipidemia HTN (hypertension) PAD (peripheral artery disease) Surgical History Hx of aorto-femoral bypass Hx of hand surgery Previous back surgery Family History Father Hypertension CAD (coronary artery disease) Myocardial infarction Stroke Mother Cancer Denies family history of Diabetes Clotting disorder Dementia Chronic kidney disease (CKD) Suicide Anesthesia complication Bleeding disorder Lung disease Social History Smoking and tobacco status: former smoker Quit status (tobacco): has quit using tobacco Year quit tobacco: 2012 Alcohol intake: current Alcohol intake frequency: 0-2 Drinks per Day Lives independently: Yes Housing: House Vitals/I&O/Wt Last Vital Signs Temp 98 F 02/11/22 14:37 Pulse 83 02/11/22 14:37 Resp 16 02/11/22 14:37 BP 147/89 02/11/22 14:15 Pulse Ox 99 02/11/22 14:37 O2 Del Method 02/11/22 13:59 O2 Flow Rate 3 02/11/22 13:59 FiO2 4 02/10/22 14:47 02/11/22 02/11/22 02/11/22 06:59 14:59 22:59 Intake Total 200 / 1550 390 / 390 Output Total 575 / 3765 250 / 250 Balance -375 / -2215 140 / 140 Weight last 48 hrs Weight 213 lb 7 oz Weight 197 lb Physical Exam Narrative: GENERAL: Patient is alert, awake and oriented x3. [] NECK: No jugular vein distension. [] HEENT: No cyanosis. No icterus. No pallor. [] HEART: Regular S1 and S2. No murmur, rub or gallop. [] LUNGS: Clear to auscultate bilaterally. [] ABDOMEN: Soft, nontender and nondistended. Positive bowel sounds. No guarding, rebound or tenderness. [] CENTRAL NERVOUS SYSTEM: Grossly nonfocal. [] EXTREMITIES: Lower extremities with 1+ edema bilaterally. Pulses palpable in the lower extremities, both dorsalis pedis and posterior tibial. [] Data 02/11/22 13:37 02/11/22 06:05 Micro: Microbiology 02/08/22 05:19 Gram Stain - Final Sputum - Expectorated Sputum Sputum Culture - Final A&P Assessment and plan (1) Positive cardiac stress test: (2) SVT (supraventricular tachycardia): (3) Afib: (4) Chest pain: (5) CKD (chronic kidney disease): (6) COPD (chronic obstructive pulmonary disease): (7) PAD (peripheral artery disease): (8) HTN (hypertension): (9) Dyslipidemia: Plan Patient has chest tightness symptoms and if stress test is abnormal. However no active chest pain. Troponins have not trended up. LV systolic function is normal. We will recommend a GI work-up to rule out bleeding prior to any invasive procedures are planned. Continue aspirin for now. After GI work-up is completed, we can decide about further procedures. Thank you for involving us with care of this patient. Please call with questions Consult Attestations Medical Necessity Statement: Care expected to cross 2 midnights. Coding Level of Care Code Acute Patient Financial Services Specialist for Selvin Weston Diagnoses Positive cardiac stress test R94.39 SVT (supraventricular tachycardia) I47.1 Afib I48.91 Chest pain R07.9 CKD (chronic kidney disease) N18.9 COPD (chronic obstructive pulmonary disease) J44.9 PAD (peripheral artery disease) I73.9 HTN (hypertension) I10 Dyslipidemia E78.5
[2022-02-11 18:13] LABS: Folate Level 15.5 ng/mL (4.5-32.2); Lactate Dehydrogenase 188 U/L (135-225); Vitamin B12 306 pg/mL (232-1245)
[2022-02-11] MEDS: cefTRIAXone 1,000 MG in sodium chloride 0.9% (plus) 50 ML 100 MG IV (19:30)
[2022-02-11] MEDS: budesonide 0.5 mg/2 mL Neb INHALATION (20:45)
[2022-02-11 21:04] LABS: LAB Peripheral Smear Sent for Review
[2022-02-11] MEDS: atorvastatin 40 mg Tablet PO (21:17)
[2022-02-12] VITALS (13 sets, daily range): BP systolic 138–165; BP diastolic 85–101; PULSE 73–93; RESP 16–22; TEMP 36.4–36.7; O2SAT 92–97
[2022-02-12] MEDS: FUROsemide 10 mg/mL SDV 4mL 40 MG IVP ×2 (05:07→18:07)
[2022-02-12 05:20] LABS: Basophils % 0.1 %; Eosinophils # 0.1 10^3/uL (0.0-0.8); Eosinophils % 0.7 %; Hematocrit 25.7 % (42.0-52.0); Hemoglobin 8.2 g/dL (11.7-16.6); Lymphocytes # 0.7 10^3/uL (0.8-4.8); Lymphocytes % 7.9 %; Mean Corpuscular HGB Conc 31.9 g/dL (30.0-36.0); Mean Corpuscular Hemoglobin 30.6 pg (28.0-34.0); Mean Corpuscular Volume 95.9 fl (80-94); Mean Platelet Volume 10.1 fL (7.4-10.4); Monocytes # 1.2 10^3/uL (0.2-0.9); Monocytes % 13.2 %; Neutrophils # 6.73 10^3/uL (1.8-7.7); Neutrophils % 77.5 %; Nucleated Red Blood Cells % 0 %; Platelet Count 259 10^3/cmm (130-400); Red Blood Count 2.68 10^6/uL (4.1-5.3); Red Cell Distribution Width 15.9 % (12.1-15.1); White Blood Count 8.7 10^3/uL (4.0-10.0)
[2022-02-12 07:51] LABS: Alanine Aminotransferase 32 U/L (0-41); Albumin Level 4.7 g/dL (3.5-5.2); Alkaline Phosphatase 72 U/L (40-130); Aspartate Amino Transferase 35 U/L (0-40); Blood Urea Nitrogen 38 mg/dL (8-23); Calcium 9.2 mg/dL (8.5-10.5); Carbon Dioxide 35 mmol/L (22-29); Chloride 95 mmol/L (98-107); Globulin 2.2 g/dL (1.3-4.6); Glucose 74 mg/dL (65-115); Magnesium 1.8 mg/dL (1.7-2.3); NT Pro B Type Natriuretic Pept 15887 pg/mL (0-125); Osmolality Calculated 298 mOsm/kg (285-295); Phosphorus 3.1 mg/dL (2.5-4.5); Sodium 140 mmol/L (136-145); Total Bilirubin 0.3 mg/dL (0.15-1.2); Total Protein 6.9 g/dL (6.6-8.7)
[2022-02-12] MEDS: ipratropium-albuterol 3 mL Neb INHALATION ×3 (08:46→22:35)
[2022-02-12] MEDS: budesonide 0.5 mg/2 mL Neb INHALATION ×2 (08:46→22:35)
[2022-02-12] MEDS: folic acid 1 mg Tablet PO (09:33)
[2022-02-12] MEDS: azithromycin 250 mg Tablet PO (09:33)
[2022-02-12] MEDS: predniSONE 20 mg Tablet 40 MG PO (09:33)
[2022-02-12] MEDS: gabapentin 300 mg Capsule PO (09:33)
[2022-02-12] MEDS: pantoprazole DR 40 mg Tablet PO ×2 (09:33→18:07)
[2022-02-12] MEDS: montelukast sodium 10 mg Tablet PO (09:34)
[2022-02-12] MEDS: metoprolol tartrate 50 mg Tablet PO ×2 (09:34→18:07)
[2022-02-12] MEDS: tamsulosin 0.4 mg Capsule PO (09:35)
[2022-02-12] MEDS: thiamine 100 mg Tablet PO (09:35)
[2022-02-12] MEDS: aspirin 81 mg EC Tablet PO (09:37)
[2022-02-12] MEDS: fluticasone nasal spray 16gm Btl 1 SPRAY INTRANASAL (09:37)
[2022-02-12] MEDS: acetaminophen 325 mg Tablet 650 MG PO ×2 (09:40→22:13)
--- NOTE | 2022-02-12 10:21 | P.PN_ITS ---
Subjective Subjective: Patient was seen this morning, no acute events overnight, no chest pain, palpitations Vitals/I&O/Wt Last Vital Signs Temp 97.6 F 02/12/22 07:49 Pulse 79 02/12/22 08:00 Resp 22 H 02/12/22 08:00 BP 165/93 02/12/22 07:49 Pulse Ox 92 02/12/22 08:00 O2 Del Method 02/12/22 08:00 O2 Flow Rate 3 02/12/22 08:00 FiO2 4 02/10/22 14:47 02/11/22 02/12/22 02/12/22 22:59 06:59 14:59 Intake Total 570 / 960 460 / 460 Output Total 1250 / 1500 525 / 2025 300 / 300 Balance -680 / -540 -525 / -1065 160 / 160 Weight last 48 hrs Weight 96.814 kg Physical Exam Const: COMMON NORMALS: no acute distress and patient oriented x3 Resp: COMMON NORMALS: normal respiratory effort, No retractions, No use of accessory muscles and clear to auscultation bilaterally AUSCULTATION: clear to auscultation bilaterally Cardio: COMMON NORMALS: regular rate, regular rhythm, S1 normal heart sound present and S2 normal heart sound present RATE: regular rate RHYTHM: regular rhythm HEART SOUNDS: S1 normal heart sound present and S2 normal heart sound present GI: COMMON NORMALS: Normal to inspection, nondistended, normoactive bowel sounds present and non-tender Extremity: NARRATIVE EXTREMITY EXAM: 1+ pitting edema Neuro: COMMON NORMALS: patient oriented x3 Psych: COMMON NORMALS: mental status grossly normal Data 02/12/22 04:23 02/12/22 07:10 Micro: Microbiology 02/11/22 15:45 Occult Blood (FIT) - Final Stool Routine Collection A&P Assessment and plan (1) CKD (chronic kidney disease): (2) COPD (chronic obstructive pulmonary disease): (3) CHF exacerbation: (4) Acute kidney injury: (5) PAD (peripheral artery disease): (6) HTN (hypertension): (7) Dyslipidemia: (8) SVT (supraventricular tachycardia): (9) Chest pain: (10) Afib: (11) SVT (supraventricular tachycardia): (12) CAD (coronary artery disease): (13) GI bleed: (14) Positive cardiac stress test: (15) Vasculopathy: Plan #Acute on chronic heart failure with preserved ejection fraction #COPD exacerbation #4Liters nasal cannula [id number] at home #CORY on CKD #Chronic anemia #History of abdominal aortic aneurysm #Hyperlipidemia, hypertension, peripheral artery disease #Hyperkalemia #History of alcoholism -Patient is edema, 1+, creatinine 1.4, continue Lasix 40 IV twice daily -Receiving albumin ? Continue supplementation of nasal cannula ? De-escalate antibiotics to doxycycline -Switch to prednisone 40 every 24 hours ? Continue DuoNeb every 4 however as needed ? CORY most likely secondary to cardiorenal syndrome. Continue to diurese patient. Nephrology consult ? Venous Doppler ruled out DVT - Replete magnesium today -Monitor for withdrawal symptoms -Bilateral extremity peripheral arterial disease, chronic limb ischemia, Doppler pulses, continue to monitor, active rewarming -Acute on chronic anemia, likely mixed, normal iron, normal ferritin, Hemoccult stool negative for stool, hemoglobin 8.2, status post 1 unit PRBC, Protonix, Carafate, upper GI series ordered -Given patient's chest pain complaints, serial EKGs) troponins, his echocardiogram done 14 days ago showed an EF of 65%, -Stress test positive, showing concerns for ischemia in the left circumflex RCA territory, continue aspirin, statin, beta-marnie, cardiology consulted, repeat echocardiogram pending -SVT versus A. fib replac epotassium, magnesium, telemetry monitoring, monitor clinically -Monitor CIWA -Paroxysmal atrial fibrillation, continue metoprolol anticoagulation on hold as concerns for anemia -Vasculopathy, peripheral vascular disease, CAD -Chest pain and shortness of breath, likely due to anemia, chest pain, positive stress test, fluid overload, Lasix as above -Will start Plavix once patient's upper GI see Full code DVT prophylaxis: Heparin currently on hold due to anemia, SCDs Disposition: Home once medically stable Attestations Medical Necessity Statement*: Patient requires hospitalization for alcoholism, diastolic CHF, COPD, anemia Coding Level of Care Code Acute Wire Mesh Gate Assembler for [facility] Fwd Diagnoses CKD (chronic kidney disease) N18.9 COPD (chronic obstructive pulmonary disease) J44.9 CHF exacerbation I50.9 Acute kidney injury N17.9 PAD (peripheral artery disease) I73.9 HTN (hypertension) I10 Dyslipidemia E78.5 SVT (supraventricular tachycardia) I47.1 Chest pain R07.9 Afib I48.91 SVT (supraventricular tachycardia) I47.1 CAD (coronary artery disease) I25.10 GI bleed K92.2 Positive cardiac stress test R94.39 Vasculopathy I99.9
[2022-02-12] MEDS: sucralfate 1 gm Tablet PO ×2 (18:07→21:14)
[2022-02-12] MEDS: doxycycline 100 mg Tablet PO (18:07)
--- NOTE | 2022-02-12 18:39 | PM.PN ---
Subjective Subjective: doing well Medications: Reviewed: Yes Vitals/I&O/Wt Last Vital Signs Temp 98.1 F 02/12/22 16:00 Pulse 88 02/12/22 16:00 Resp 20 H 02/12/22 16:00 BP 145/85 02/12/22 16:00 Pulse Ox 94 02/12/22 16:00 O2 Del Method 02/12/22 16:00 O2 Flow Rate 3 02/12/22 16:00 FiO2 4 02/10/22 14:47 02/12/22 02/12/22 02/12/22 06:59 14:59 22:59 Intake Total 940 / 940 700 / 1640 Output Total 525 / 2025 700 / 700 Balance -525 / -1065 240 / 240 700 / 940 Weight last 48 hrs Weight 96.814 kg Data 02/12/22 04:23 02/12/22 07:10 Micro: Microbiology 02/11/22 15:45 Occult Blood (FIT) - Final Stool Routine Collection A&P Assessment and plan (1) CKD (chronic kidney disease): [place] [address] Progress Note Signed Patient: Jamie Davison MR#: [id number] : 1950 Age/Sex: 71 / M ADM Date: 02/10/22 Loc: CSU? Room/Bed: [facility] Encounter Date: 02/11/[address]: Timi Roque MD Report Number: [id number] Subjective Subjective:?? no new complaints plan for PRBC transfusion Medications:?? Reviewed: Yes Vitals/I&O/Wt Last Vital Signs Temp ?97.8 F ?02/11/22 04:00 Pulse ?86 ?02/11/22 08:13 Resp ?21 H ?02/11/22 04:00 BP ?128/79 ?02/11/22 08:13 Pulse Ox ?94 ?02/11/22 04:00 O2 Del Method ? ?02/11/22 04:00 O2 Flow Rate ?2 ?02/11/22 04:00 FiO2 ?4 ?02/10/22 14:47 ? 02/10/22 02/11/22 02/11/22 ? 22:59 06:59 14:59 Intake Total 970 / 1350 200 / 1550 ? Output Total 1200 / 3190 575 / 3765 ? Balance -230 / -1840 -375 / -2215 ? Weight last 48 hrs Weight? 96.814 kg ? Weight? 89.358 kg ? Physical Exam Const:?? COMMON NORMALS: no acute distress Resp:?? COMMON NORMALS: normal respiratory effort and No retractions GI:?? COMMON NORMALS: Normal to inspection, nondistended, normoactive bowel sounds present Extremity:?? NARRATIVE EXTREMITY EXAM: 2+ pitting edema bilateral lower extremity Psych:?? COMMON NORMALS: mental status grossly normal Data 02/11/22 06:05? 02/11/22 06:05? Micro: Microbiology ?02/08/22 05:19 Gram Stain - Final ?Sputum - Expectorated Sputum Sputum Culture - Final A&P Assessment and plan (1) CKD (chronic kidney disease): [place] [address] Progress Note SignedPatient: Jamie Davison MR#: [id number] : 1950 Age/Sex: 71 / M ADM Date: 02/05/22 Loc: CSU? Room/Bed: [facility] Encounter Date: 02/10/[address]: Timi Roque MD Report Number: [id number] Subjective Subjective:??? No new complaints denies SOB Medications:??? Reviewed: Yes Vitals/I&O/Wt Last Vital Signs Temp? ?98 F? ?02/10/22 08:00 Pulse? ?71? ?02/10/22 08:39 Resp? ?20 H? ?02/10/22 08:33 BP? ?153/90? ?02/10/22 08:00 Pulse Ox? ?97? ?02/10/22 08:33 O2 Del Method?02/10/22 08:33 O2 Flow Rate? ?4? ?02/10/22 08:33 ?? 02/09/22? 02/10/22? 02/10/22 ?? 22:59? 06:59? 14:59 Intake Total? 2630 / 3410? 126 / 3536? ? Output Total? 1100 / 1800? 600 / 2400? 1800 / 1800 Balance? 1530 / 1610? -474 / 1136? -1800 / -1800 Weight last 48 hrs Weight? 89.358 kg ? Weight? 95.118 kg ? Physical Exam Const:??? COMMON NORMALS: no acute distress Resp:??? COMMON NORMALS: normal respiratory effort and No retractions Cardio:??? COMMON NORMALS: regular rate and regular rhythm? RATE: regular rate? RHYTHM: regular rhythm GI:??? COMMON NORMALS: Normal to inspection, nondistended, normoactive bowel sounds present Extremity:??? NARRATIVE EXTREMITY EXAM: 2+ pitting edema bilateral lower extremity Psych:??? COMMON NORMALS: mental status grossly normal Data : 02/10/22 04:29? 02/10/22 04:29? Micro: Microbiology ?02/08/22 05:19? Gram Stain - Final ?Sputum - Expectorated Sputum? Sputum Culture - Final A&P Assessment and plan (1) CKD (chronic kidney disease): 1.? Chronic kidney disease stage III: Patient's baseline creatinine in the 1 range, presented with a creatinine of 1.6 currently at 1.4 which is likely his baseline.? Recently had an CORY due to obstructive uropathy with a creatinine peak of 4 range.? Has indwelling Ashley catheter currently -Continue to monitor renal function, patient on diuretics- can change to pO lasix at [place] -s/p? IV albumin -arrange nephrology follow-up at [place] 2.? Persistent hyperkalemia: Unclear etiology, likely has a component of RTA, lisinopril is on hold, -continue low potassium diet 3.? CHF exacerbation: Secondary to missing diuretics recently, resumed diuretics at home dose -2 g sodium restriction and 1500 mill fluid restriction, -Patient on home O2 level 3 to 4 L at home 4. Hypomagnesemia : improved 5. anemia : s/p transfusion time spent 30 min Attestations Medical Necessity Statement*: Patient requires hospitalization for alcoholism, diastolic CHF, COPD, anemia Coding Level of Care Code Acute Clinical Account Specialist for [facility] Fwd Diagnoses CKD (chronic kidney disease) N18.9
[2022-02-12] MEDS: atorvastatin 40 mg Tablet PO (21:14)
[2022-02-13] VITALS (15 sets, daily range): BP systolic 138–169; BP diastolic 82–103; PULSE 67–86; RESP 12–24; TEMP 36.4–36.9; O2SAT 94–100
--- NOTE | 2022-02-13 | FL_ITS ---
WS: [id number] Exam: [place] upper GI gastrografin [id number] Date/Time of Exam: 02/13/2022 9:55 AM Reason For Exam: gi bleed Preliminary abdominal survey shows no acute process. Postoperative changes of the upper lumbar spine. Gastrografin upper GI is performed. Swallowing function was normal. Mild esophageal spasm noted. Opacification of the stomach shows a per sistent focal collection of contrast in the gastric antrum suspicious for an antral ulcer. Prominent gastric mucosa suggesting mild gastritis. There is a diverticulum of the third segment of the duodena l C-loop with filling defect that may represent retained food debris. No gastric outlet obstruction w as noted. Contrast extends into the proximal jejunum. There appears to be mild aneurysmal dilatation of the distal abdominal aorta. FL/FL upper GI gastrografin [id number] IMPRESSION: 1. Persistent focal collection of contrast in the in the gastric antrum suspici ous for an antral ulcer. No perforation or gastric outlet obstruction noted. 2. Prominent diverticulum of the third segment of the duodenum with filling def ect which may be retained food. 3. Probable mild gastritis. Mild esophageal spasm. 4. Probable mild aneurysmal dilatation of the distal abdominal aorta. This coul d be assessed more accurately with ultrasound if thought to be clinically warra nted.
[2022-02-13] MEDS: ipratropium-albuterol 3 mL Neb INHALATION ×4 (03:21→23:09)
[2022-02-13 06:15] LABS: Basophils % 0.1 %; Eosinophils # 0.1 10^3/uL (0.0-0.8); Eosinophils % 1.4 %; Hemoglobin 8.2 g/dL (11.7-16.6); Lymphocytes # 0.7 10^3/uL (0.8-4.8); Lymphocytes % 9.4 %; Mean Corpuscular HGB Conc 31.5 g/dL (30.0-36.0); Mean Corpuscular Hemoglobin 30.6 pg (28.0-34.0); Mean Platelet Volume 9.2 fL (7.4-10.4); Monocytes # 0.9 10^3/uL (0.2-0.9); Monocytes % 11.8 %; Neutrophils # 5.87 10^3/uL (1.8-7.7); Neutrophils % 76.8 %; Nucleated Red Blood Cells % 0 %; Platelet Count 242 10^3/cmm (130-400); Red Blood Count 2.68 10^6/uL (4.1-5.3); Red Cell Distribution Width 15.8 % (12.1-15.1); White Blood Count 7.7 10^3/uL (4.0-10.0)
[2022-02-13] MEDS: sucralfate 1 gm Tablet PO ×3 (06:23→18:33)
[2022-02-13] MEDS: FUROsemide 10 mg/mL SDV 4mL 40 MG IVP ×2 (06:23→18:34)
[2022-02-13 06:45] LABS: Alanine Aminotransferase 26 U/L (0-41); Albumin Level 4.5 g/dL (3.5-5.2); Alkaline Phosphatase 62 U/L (40-130); Anion Gap 14.5 (5-19); Aspartate Amino Transferase 23 U/L (0-40); Blood Urea Nitrogen 36 mg/dL (8-23); Calcium 8.8 mg/dL (8.5-10.5); Carbon Dioxide 35 mmol/L (22-29); Chloride 95 mmol/L (98-107); Glucose 82 mg/dL (65-115); Magnesium 1.6 mg/dL (1.7-2.3); NT Pro B Type Natriuretic Pept 17260 pg/mL (0-125); Osmolality Calculated 299 mOsm/kg (285-295); Phosphorus 2.8 mg/dL (2.5-4.5); Potassium 3.5 mmol/L (3.5-5.1); Sodium 141 mmol/L (136-145); Total Bilirubin 0.4 mg/dL (0.15-1.2); Total Protein 6.5 g/dL (6.6-8.7)
[2022-02-13] MEDS: acetaminophen 325 mg Tablet 650 MG PO ×2 (07:25→22:23)
[2022-02-13] MEDS: metoprolol tartrate 50 mg Tablet PO ×2 (07:26→18:33)
--- NOTE | 2022-02-13 08:37 | PC.SOCIAL ---
IMM update IMM updated with patient. Verbalized an understanding. Copy Pg 2 provided. Initialled, dated, timed, and placed in chart.
[2022-02-13] MEDS: montelukast sodium 10 mg Tablet PO (08:43)
[2022-02-13] MEDS: folic acid 1 mg Tablet PO (08:43)
[2022-02-13] MEDS: predniSONE 20 mg Tablet 40 MG PO (08:44)
[2022-02-13] MEDS: gabapentin 300 mg Capsule PO (08:44)
[2022-02-13] MEDS: thiamine 100 mg Tablet PO (08:44)
[2022-02-13] MEDS: pantoprazole DR 40 mg Tablet PO ×2 (08:44→18:33)
[2022-02-13] MEDS: tamsulosin 0.4 mg Capsule PO (08:44)
[2022-02-13] MEDS: doxycycline 100 mg Tablet PO ×2 (08:44→18:33)
[2022-02-13] MEDS: aspirin 81 mg EC Tablet PO (08:46)
[2022-02-13] MEDS: saline nasal spray 44mL Btl 1 SPRAY NASAL (08:47)
[2022-02-13] MEDS: fluticasone nasal spray 16gm Btl 1 SPRAY INTRANASAL (08:48)
[2022-02-13] MEDS: budesonide 0.5 mg/2 mL Neb INHALATION ×2 (09:11→23:09)
[2022-02-13] MEDS: diatrizoate meglumine 120 mL Sol PO (10:39)
--- NOTE | 2022-02-13 12:55 | P.PN_ITS ---
Subjective Subjective: Patient was seen this morning, he denies any bloody or black stools, no lightheadedness, no dizziness Vitals/I&O/Wt Last Vital Signs Temp 98.5 F 02/13/22 11:37 Pulse 74 02/13/22 11:37 Resp 18 02/13/22 11:37 BP 169/103 02/13/22 11:37 Pulse Ox 94 02/13/22 11:37 O2 Del Method 02/13/22 11:37 O2 Flow Rate 4 02/13/22 09:12 FiO2 4 02/10/22 14:47 02/12/22 02/13/22 02/13/22 22:59 06:59 14:59 Intake Total 800 / 1740 100 / 1840 340 / 340 Output Total 650 / 1350 350 / 1700 760 / 760 Balance 150 / 390 -250 / 140 -420 / -420 Weight last 48 hrs Weight 89.403 kg Weight 91.257 kg Physical Exam Const: COMMON NORMALS: no acute distress and patient oriented x3 Resp: COMMON NORMALS: normal respiratory effort, No retractions, No use of accessory muscles and clear to auscultation bilaterally AUSCULTATION: clear to auscultation bilaterally Cardio: COMMON NORMALS: regular rate, regular rhythm, S1 normal heart sound present and S2 normal heart sound present RATE: regular rate RHYTHM: regular rhythm HEART SOUNDS: S1 normal heart sound present and S2 normal heart sound present GI: COMMON NORMALS: Normal to inspection, nondistended, normoactive bowel sounds present and non-tender Extremity: COMMON NORMALS: no pedal edema Neuro: COMMON NORMALS: patient oriented x3 Psych: COMMON NORMALS: mental status grossly normal Data 02/13/22 06:05 02/13/22 06:05 Micro: Microbiology 02/12/22 18:30 Occult Blood (FIT) - Final Stool - Stool Aspirate A&P Assessment and plan (1) CKD (chronic kidney disease): (2) COPD (chronic obstructive pulmonary disease): (3) CHF exacerbation: (4) Acute kidney injury: (5) PAD (peripheral artery disease): (6) HTN (hypertension): (7) Dyslipidemia: (8) SVT (supraventricular tachycardia): (9) Chest pain: (10) Afib: (11) SVT (supraventricular tachycardia): (12) CAD (coronary artery disease): (13) GI bleed: (14) Positive cardiac stress test: (15) Vasculopathy: (16) Gastric ulcer: Plan #Acute on chronic heart failure with preserved ejection fraction #COPD exacerbation #4Liters nasal cannula [id number] at home #CORY on CKD #Chronic anemia #History of abdominal aortic aneurysm #Hyperlipidemia, hypertension, peripheral artery disease #Hyperkalemia #History of alcoholism -Edema has improved, creatinine 1.2, continue Lasix, continue Lasix 40 IV twice daily -Receiving albumin ? Continue supplementation of nasal cannula ? De-escalate antibiotics to doxycycline -Switch to prednisone 40 every 24 hours ? Continue DuoNeb every 4 however as needed ? CORY most likely secondary to cardiorenal syndrome. Continue to diurese patient. Nephrology consult ? Venous Doppler ruled out DVT - Replete magnesium today -Monitor for withdrawal symptoms -Bilateral extremity peripheral arterial disease, chronic limb ischemia, Doppler pulses, continue to monitor, active rewarming -Acute on chronic anemia, likely mixed, normal iron, normal ferritin, Hemoccult stool negative for stool, hemoglobin 8.2, status post 1 unit PRBC, Protonix, Carafate, upper GI series ordered -Given patient's chest pain complaints, serial EKGs) troponins, his echocardiogram done 14 days ago showed an EF of 65%, -Stress test positive, showing concerns for ischemia in the left circumflex RCA territory, continue aspirin, statin, beta-marnie, cardiology consulted, repeat echocardiogram pending -SVT versus A. fib replac epotassium, magnesium, telemetry monitoring, monitor clinically -Monitor CIWA -Paroxysmal atrial fibrillation, continue metoprolol anticoagulation on hold as concerns for anemia -Vasculopathy, peripheral vascular disease, CAD -Chest pain and shortness of breath, likely due to anemia, chest pain, positive stress test, fluid overload, Lasix as above -Patient is Gastrografin study -1. Persistent focal collection of contrast in the in the gastric antrum suspicious for an antral ulcer. No perforation or gastric outlet obstruction noted. 2. Prominent diverticulum of the third segment of the duodenum with filling defect which may be retained food. 3. Probable mild gastritis. Mild esophageal spasm. 4. Probable mild aneurysmal dilatation of the distal abdominal aorta. This could be assessed more accurately with ultrasound if thought to be clinically warranted. -Advised patient has high risk of bleeding if Plavix were to be started, he needs to have EGD however we do not have any general surgery coverage over the weekend -Plan is to consult general surgery when they come back on Wednesday to do an EGD -Hold Plavix for now, monitor for chest pain, continue to diurese, monitor hemoglobin Full code DVT prophylaxis: Heparin currently on hold due to anemia, SCDs Disposition: Home once medically stable Attestations Medical Necessity Statement*: Patient requires hospitalization, for anemia, p ositive stress test, concerns for gastric ulcer, need to start some form of antiplatelet anticoagulant therapy, cannot do this until general surgery does an EGD Coding Level of Care Code Acute Lock Plater for [facility] Fwd Diagnoses CKD (chronic kidney disease) N18.9 COPD (chronic obstructive pulmonary disease) J44.9 CHF exacerbation I50.9 Acute kidney injury N17.9 PAD (peripheral artery disease) I73.9 HTN (hypertension) I10 Dyslipidemia E78.5 SVT (supraventricular tachycardia) I47.1 Chest pain R07.9 Afib I48.91 SVT (supraventricular tachycardia) I47.1 CAD (coronary artery disease) I25.10 GI bleed K92.2 Positive cardiac stress test R94.39 Vasculopathy I99.9 Gastric ulcer K25.9
--- NOTE | 2022-02-13 18:33 | PM.PN ---
Subjective Subjective: no new complaints Medications: Reviewed: Yes Vitals/I&O/Wt Last Vital Signs Temp 98.5 F 02/13/22 15:07 Pulse 80 02/13/22 15:07 Resp 12 02/13/22 15:07 BP 138/82 02/13/22 15:07 Pulse Ox 100 02/13/22 15:07 O2 Del Method 02/13/22 15:07 O2 Flow Rate 4 02/13/22 14:00 FiO2 4 02/10/22 14:47 02/13/22 02/13/22 02/13/22 06:59 14:59 22:59 Intake Total 100 / 1840 340 / 340 580 / 920 Output Total 350 / 1700 760 / 760 800 / 1560 Balance -250 / 140 -420 / -420 -220 / -640 Weight last 48 hrs Weight 89.403 kg Weight 91.257 kg Physical Exam Const: COMMON NORMALS: no acute distress Resp: COMMON NORMALS: normal respiratory effort, No retractions and No use of accessory muscles GI: COMMON NORMALS: Normal to inspection, nondistended, normoactive bowel sounds present Extremity: COMMON NORMALS: no pedal edema Psych: COMMON NORMALS: mental status grossly normal Data 02/13/22 06:05 02/13/22 06:05 Micro: Microbiology 02/12/22 18:30 Occult Blood (FIT) - Final Stool - Stool Aspirate A&P Assessment and plan (1) CKD (chronic kidney disease): Plan (1) CKD (chronic kidney disease): 1.? Chronic kidney disease stage III: Patient's baseline creatinine in the 1 range, presented with a creatinine of 1.6 currently at 1.2 which is likely his baseline.? Recently had an CORY due to obstructive uropathy with a creatinine peak of 4 range.? Has indwelling Ashley catheter currently -Continue to monitor renal function, on PO diuretics -s/p? IV albumin -arrange nephrology follow-up at [place] 2.? Persistent hyperkalemia: Unclear etiology, likely has a component of RTA, lisinopril is on hold, -continue? low potassium diet - improved 3.? CHF exacerbation: Secondary to missing diuretics recently, resumed diuretics at home dose -2 g sodium restriction and 1500 mill fluid restriction, -Patient on home O2 level 3 to 4 L at home 4. Hypomagnesemia : improved 5. anemia : s/p? transfusion time spent 30 min Attestations Medical Necessity Statement*: Patient requires hospitalization, for anemia, positive stress test, concerns for gastric ulcer, need to start some form of antiplatelet anticoagulant therapy, cannot do this until general surgery does an EGD Coding Level of Care Code Acute Obstetrics Nurse for [facility] Fwd Diagnoses CKD (chronic kidney disease) N18.9
[2022-02-13] MEDS: atorvastatin 40 mg Tablet PO (21:01)
[2022-02-14] VITALS (15 sets, daily range): BP systolic 124–165; BP diastolic 74–113; PULSE 72–101; RESP 12–27; TEMP 36.6–37.1; O2SAT 86–100
[2022-02-14] MEDS: sucralfate 1 gm Tablet PO ×4 (00:57→18:00)
[2022-02-14] MEDS: ipratropium-albuterol 3 mL Neb INHALATION ×4 (02:29→21:04)
[2022-02-14 04:02] LABS: Basophils % 0.1 %; Eosinophils # 0.1 10^3/uL (0.0-0.8); Eosinophils % 1.1 %; Hematocrit 26.2 % (42.0-52.0); Hemoglobin 8.2 g/dL (11.7-16.6); Lymphocytes # 0.9 10^3/uL (0.8-4.8); Lymphocytes % 8.8 %; Mean Corpuscular HGB Conc 31.3 g/dL (30.0-36.0); Mean Platelet Volume 10.5 fL (7.4-10.4); Monocytes % 10.1 %; Neutrophils # 7.99 10^3/uL (1.8-7.7); Neutrophils % 79.4 %; Nucleated Red Blood Cells % 0 %; Platelet Count 287 10^3/cmm (130-400); Red Blood Count 2.73 10^6/uL (4.1-5.3); Red Cell Distribution Width 15.9 % (12.1-15.1); White Blood Count 10.1 10^3/uL (4.0-10.0)
[2022-02-14 04:43] LABS: Alanine Aminotransferase 24 U/L (0-41); Albumin Level 4.6 g/dL (3.5-5.2); Alkaline Phosphatase 59 U/L (40-130); Anion Gap 14.6 (5-19); Aspartate Amino Transferase 21 U/L (0-40); Blood Urea Nitrogen 40 mg/dL (8-23); Calcium 9.2 mg/dL (8.5-10.5); Carbon Dioxide 33 mmol/L (22-29); Chloride 90 mmol/L (98-107); Globulin 2.5 g/dL (1.3-4.6); Glucose 89 mg/dL (65-115); Magnesium 1.4 mg/dL (1.7-2.3); NT Pro B Type Natriuretic Pept 17560 pg/mL (0-125); Osmolality Calculated 287 mOsm/kg (285-295); Phosphorus 2.8 mg/dL (2.5-4.5); Potassium 3.6 mmol/L (3.5-5.1); Sodium 134 mmol/L (136-145); Total Bilirubin 0.5 mg/dL (0.15-1.2); Total Protein 7.1 g/dL (6.6-8.7)
[2022-02-14] MEDS: FUROsemide 10 mg/mL SDV 4mL 40 MG IVP (05:59)
[2022-02-14] MEDS: budesonide 0.5 mg/2 mL Neb INHALATION ×2 (08:01→21:03)
[2022-02-14] MEDS: gabapentin 300 mg Capsule PO (09:05)
[2022-02-14] MEDS: thiamine 100 mg Tablet PO (09:05)
[2022-02-14] MEDS: folic acid 1 mg Tablet PO (09:05)
[2022-02-14] MEDS: doxycycline 100 mg Tablet PO ×2 (09:05→18:01)
[2022-02-14] MEDS: montelukast sodium 10 mg Tablet PO (09:05)
[2022-02-14] MEDS: metoprolol tartrate 50 mg Tablet PO ×2 (09:06→18:01)
[2022-02-14] MEDS: pantoprazole DR 40 mg Tablet PO ×2 (09:06→18:01)
[2022-02-14] MEDS: predniSONE 20 mg Tablet 40 MG PO (09:06)
[2022-02-14] MEDS: aspirin 81 mg EC Tablet PO (09:07)
[2022-02-14] MEDS: tamsulosin 0.4 mg Capsule PO (09:07)
[2022-02-14] MEDS: fluticasone nasal spray 16gm Btl 1 SPRAY INTRANASAL (09:07)
[2022-02-14] MEDS: acetaminophen 325 mg Tablet 650 MG PO (09:12)
--- NOTE | 2022-02-14 12:59 | PM.PN ---
Subjective Subjective: Patient was seen this morning, has complaints of a cough, no fevers, no chills Vitals/I&O/Wt Last Vital Signs Temp 98.0 F 02/14/22 04:00 Pulse 93 02/14/22 11:38 Resp 12 02/14/22 11:38 BP 124/74 02/14/22 11:38 Pulse Ox 96 02/14/22 11:38 O2 Del Method 02/14/22 08:00 O2 Flow Rate 5 02/14/22 08:00 FiO2 4 02/10/22 14:47 02/13/22 02/14/22 02/14/22 22:59 06:59 14:59 Intake Total 930 / 1270 230 / 1500 684 / 684 Output Total 2080 / 2840 475 / 3315 300 / 300 Balance -1150 / -1570 -245 / -1815 384 / 384 Weight last 48 hrs Weight 88.451 kg Weight 89.403 kg Weight 91.257 kg Physical Exam Const: COMMON NORMALS: no acute distress and patient oriented x3 Resp: COMMON NORMALS: normal respiratory effort, No retractions, No use of accessory muscles and clear to auscultation bilaterally AUSCULTATION: clear to auscultation bilaterally Cardio: COMMON NORMALS: regular rate, regular rhythm, S1 normal heart sound present and S2 normal heart sound present RATE: regular rate RHYTHM: regular rhythm HEART SOUNDS: S1 normal heart sound present and S2 normal heart sound present GI: COMMON NORMALS: Normal to inspection, nondistended, normoactive bowel sounds present and non-tender Extremity: COMMON NORMALS: no pedal edema Neuro: COMMON NORMALS: patient oriented x3 Psych: COMMON NORMALS: mental status grossly normal Data 02/14/22 02:18 02/14/22 02:18 A&P Assessment and plan (1) CKD (chronic kidney disease): (2) COPD (chronic obstructive pulmonary disease): (3) CHF exacerbation: (4) Acute kidney injury: (5) PAD (peripheral artery disease): (6) HTN (hypertension): (7) Dyslipidemia: (8) SVT (supraventricular tachycardia): (9) Chest pain: (10) Afib: (11) SVT (supraventricular tachycardia): (12) CAD (coronary artery disease): (13) GI bleed: (14) Positive cardiac stress test: (15) Vasculopathy: (16) Gastric ulcer: Plan #Acute on chronic heart failure with preserved ejection fraction #COPD exacerbation #4Liters nasal cannula [id number] at home #CORY on CKD #Chronic anemia #History of abdominal aortic aneurysm #Hyperlipidemia, hypertension, peripheral artery disease #Hyperkalemia #History of alcoholism -Edema has improved, creatinine 1.2, continue Lasix, continue Lasix 40 IV twice daily -Receiving albumin ? Continue supplementation of nasal cannula ? De-escalate antibiotics to doxycycline -Switch to prednisone 40 every 24 hours ? Continue DuoNeb every 4 however as needed ? CORY most likely secondary to cardiorenal syndrome. Continue to diurese patient. Nephrology consult ? Venous Doppler ruled out DVT - Replete magnesium today -Monitor for withdrawal symptoms -Bilateral extremity peripheral arterial disease, chronic limb ischemia, Doppler pulses, continue to monitor, active rewarming -Acute on chronic anemia, likely mixed, normal iron, normal ferritin, Hemoccult stool negative for stool, hemoglobin 8.2, status post 1 unit PRBC, Protonix, Carafate, upper GI series ordered -Given patient's chest pain complaints, serial EKGs) troponins, his echocardiogram done 14 days ago showed an EF of 65%, -Stress test positive, showing concerns for ischemia in the left circumflex RCA territory, continue aspirin, statin, beta-marnie, cardiology consulted, repeat echocardiogram pending -SVT versus A. fib replac epotassium, magnesium, telemetry monitoring, monitor clinically -Monitor CIWA -Paroxysmal atrial fibrillation, continue metoprolol anticoagulation on hold as concerns for anemia -Vasculopathy, peripheral vascular disease, CAD -Chest pain and shortness of breath, likely due to anemia, chest pain, positive stress test, fluid overload, Lasix as above -Patient is Gastrografin study -1. Persistent focal collection of contrast in the in the gastric antrum suspicious for an antral ulcer. No perforation or gastric outlet obstruction noted. 2. Prominent diverticulum of the third segment of the duodenum with filling defect which may be retained food. 3. Probable mild gastritis. Mild esophageal spasm. 4. Probable mild aneurysmal dilatation of the distal abdominal aorta. This could be assessed more accurately with ultrasound if thought to be clinically warranted. -Advised patient has high risk of bleeding if Plavix were to be started, he needs to have EGD however we do not have any general surgery coverage over the weekend -Plan is to consult general surgery when they come back on Wednesday to do an EGD -Hold Plavix for now, monitor for chest pain, continue to diurese, monitor hemoglobin Full code DVT prophylaxis: Heparin currently on hold due to anemia, SCDs Disposition: Home once medically stable Attestations Medical Necessity Statement*: Patient requires hospitalization, for anemia, positive stress test, concerns for gastric ulcer, need to start some form of antiplatelet anticoagulant therapy, cannot do this until general surgery does an EGD Coding Level of Care Code Acute [employer] W[employer] Consultant for [facility] Fwd Diagnoses CKD (chronic kidney disease) N18.9 COPD (chronic obstructive pulmonary disease) J44.9 CHF exacerbation I50.9 Acute kidney injury N17.9 PAD (peripheral artery disease) I73.9 HTN (hypertension) I10 Dyslipidemia E78.5 SVT (supraventricular tachycardia) I47.1 Chest pain R07.9 Afib I48.91 SVT (supraventricular tachycardia) I47.1 CAD (coronary artery disease) I25.10 GI bleed K92.2 Positive cardiac stress test R94.39 Vasculopathy I99.9 Gastric ulcer K25.9
[2022-02-14 15:40] LABS: Influenza A by IFA negative (Negative); Influenza B by IFA negative (Negative)
[2022-02-14] MEDS: FUROsemide 40 mg Tablet PO (18:01)
[2022-02-14] MEDS: atorvastatin 40 mg Tablet PO (20:36)
[2022-02-14] MEDS: benzonatate 100 mg Capsule PO (20:43)
[2022-02-15] VITALS (16 sets, daily range): BP systolic 123–174; BP diastolic 86–119; PULSE 79–132; RESP 15–23; TEMP 36.5–37.1; O2SAT 88–96
[2022-02-15] MEDS: sucralfate 1 gm Tablet PO ×5 (00:41→23:43)
[2022-02-15] MEDS: ipratropium-albuterol 3 mL Neb INHALATION ×4 (02:47→19:56)
[2022-02-15 05:12] LABS: Basophils % 0.1 %; Eosinophils # 0.1 10^3/uL (0.0-0.8); Eosinophils % 0.9 %; Hematocrit 27.2 % (42.0-52.0); Hemoglobin 8.2 g/dL (11.7-16.6); Lymphocytes # 0.8 10^3/uL (0.8-4.8); Lymphocytes % 7.9 %; Mean Corpuscular HGB Conc 30.1 g/dL (30.0-36.0); Mean Corpuscular Hemoglobin 29.9 pg (28.0-34.0); Mean Corpuscular Volume 99.3 fl (80-94); Mean Platelet Volume 10.7 fL (7.4-10.4); Monocytes # 1.1 10^3/uL (0.2-0.9); Monocytes % 11.2 %; Neutrophils # 7.68 10^3/uL (1.8-7.7); Neutrophils % 79.4 %; Nucleated Red Blood Cells % 0 %; Platelet Count 253 10^3/cmm (130-400); Red Blood Count 2.74 10^6/uL (4.1-5.3); Red Cell Distribution Width 15.6 % (12.1-15.1); White Blood Count 9.7 10^3/uL (4.0-10.0)
[2022-02-15 05:40] LABS: Alanine Aminotransferase 21 U/L (0-41); Albumin Level 5.1 g/dL (3.5-5.2); Alkaline Phosphatase 75 U/L (40-130); Anion Gap 13.2 (5-19); Aspartate Amino Transferase 19 U/L (0-40); Blood Urea Nitrogen 40 mg/dL (8-23); Calcium 9.3 mg/dL (8.5-10.5); Carbon Dioxide 37 mmol/L (22-29); Chloride 97 mmol/L (98-107); Globulin 2.1 g/dL (1.3-4.6); Glucose 117 mg/dL (65-115); Magnesium 1.7 mg/dL (1.7-2.3); NT Pro B Type Natriuretic Pept 21253 pg/mL (0-125); Osmolality Calculated 309 mOsm/kg (285-295); Phosphorus 2.7 mg/dL (2.5-4.5); Potassium 3.2 mmol/L (3.5-5.1); Sodium 144 mmol/L (136-145); Total Bilirubin 0.5 mg/dL (0.15-1.2); Total Protein 7.2 g/dL (6.6-8.7)
[2022-02-15] MEDS: budesonide 0.5 mg/2 mL Neb INHALATION ×2 (07:36→19:56)
[2022-02-15] MEDS: montelukast sodium 10 mg Tablet PO (08:21)
[2022-02-15] MEDS: predniSONE 20 mg Tablet 40 MG PO (08:21)
[2022-02-15] MEDS: gabapentin 300 mg Capsule PO (08:21)
[2022-02-15] MEDS: FUROsemide 40 mg Tablet PO ×2 (08:21→16:55)
[2022-02-15] MEDS: doxycycline 100 mg Tablet PO ×2 (08:21→16:55)
[2022-02-15] MEDS: fluticasone nasal spray 16gm Btl 1 SPRAY INTRANASAL (08:22)
[2022-02-15] MEDS: metoprolol tartrate 50 mg Tablet PO (08:22)
[2022-02-15] MEDS: aspirin 81 mg EC Tablet PO (08:22)
[2022-02-15] MEDS: folic acid 1 mg Tablet PO (08:22)
[2022-02-15] MEDS: pantoprazole DR 40 mg Tablet PO ×2 (08:22→16:55)
[2022-02-15] MEDS: tamsulosin 0.4 mg Capsule PO (08:22)
[2022-02-15] MEDS: thiamine 100 mg Tablet PO (08:22)
--- NOTE | 2022-02-15 08:47 | PC.SOCIAL ---
IMM update IMM updated with patient. Verbalized an understanding. Copy Pg 2 provided. Initialled, dated, timed, and placed in chart.
[2022-02-15] MEDS: magnesium sulfate premix 2 GM/50 ML PIGGYBACK IV (09:28)
--- NOTE | 2022-02-15 13:36 | PC.NURSE ---
Physician orders: Metoprolol IVP 5mg once
[2022-02-15] MEDS: metoprolol tartrate 1 mg/1 mL SDV 5 mL 5 MG IVP ×2 (13:54→15:59)
--- NOTE | 2022-02-15 15:27 | PC.NURSE ---
Physician orders: Metoprolol IVP 5mg once
--- NOTE | 2022-02-15 15:27 | ECG_ITS ---
[facility] Test Date: 2022-02-15 Pat Name: Jamie Davison Department: Room: 101 Gender: Male Handkerchief Folder: : 1950 Requested By: Timi Roque Order Number: [id number] Rojas MD: Gamaliel Varela M.D. Measurements Intervals [place] Rate: 131 P: 0 [place]: 0 QRS: 3 QRSD: 80 T: 12 QT: 299 QTc: 442 Interpretive Statements ATRIAL FLUTTER/TACHYCARDIA WITH RAPID VENTRICULAR RESPONSE MODERATE ST DEPRESSION [0.05+ mV ST DEPRESSION] Compared to ECG 02/11/2022 15:04:23 ST (T wave) deviation now present Sinus rhythm no longer present First degree AV block no longer present Electronically Signed On 02-16-2022 17:09:51 FEATURES REPORTER by Gamaliel Varela M.D. [id number]
[2022-02-15] MEDS: metoprolol tartrate 25 mg Tablet PO (15:52)
--- NOTE | 2022-02-15 16:17 | PC.NURSE ---
Physician orders to initiate Amiodarone gtt at 0.5 rate for aflutter sustaining in the 130's.
--- NOTE | 2022-02-15 16:23 | PM.PN ---
Subjective Subjective: Patient was seen this morning, he has no complaints, in the afternoon he went into a flutter, heart rates in the 130s, did not respond to 2 doses of metoprolol and p.o. metoprolol we will start amiodarone drip Vitals/I&O/Wt Last Vital Signs Temp 98.6 F 02/15/22 15:31 Pulse 132 H 02/15/22 15:31 Resp 18 02/15/22 15:31 BP 141/107 02/15/22 15:31 Pulse Ox 91 02/15/22 15:31 O2 Del Method 02/15/22 15:31 O2 Flow Rate 4 02/15/22 14:00 FiO2 4 02/15/22 08:00 02/15/22 02/15/22 02/15/22 06:59 14:59 22:59 Intake Total 990 / 245 932.6375 / 1099.0909 Output Total 600 / 1600 685 / 685 Balance -600 / 9 305 / 148 215.0054 / 414.0909 Weight last 48 hrs Weight 87.543 kg Weight 88.451 kg Physical Exam Const: COMMON NORMALS: no acute distress and patient oriented x3 Resp: COMMON NORMALS: normal respiratory effort, No retractions, No use of accessory muscles and clear to auscultation bilaterally AUSCULTATION: clear to auscultation bilaterally Cardio: COMMON NORMALS: S1 normal heart sound present and S2 normal heart sound present RATE: tachycardic RHYTHM: abnormal rhythm irregularly irregular HEART SOUNDS: S1 normal heart sound present and S2 normal heart sound present GI: COMMON NORMALS: Normal to inspection, nondistended, normoactive bowel sounds present and non-tender Extremity: COMMON NORMALS: no pedal edema Neuro: COMMON NORMALS: patient oriented x3 Psych: COMMON NORMALS: mental status grossly normal Data 02/15/22 04:31 02/15/22 04:31 A&P Assessment and plan (1) CKD (chronic kidney disease): (2) COPD (chronic obstructive pulmonary disease): (3) CHF exacerbation: (4) Acute kidney injury: (5) PAD (peripheral artery disease): (6) HTN (hypertension): (7) Dyslipidemia: (8) SVT (supraventricular tachycardia): (9) Chest pain: (10) Afib: (11) SVT (supraventricular tachycardia): (12) CAD (coronary artery disease): (13) GI bleed: (14) Positive cardiac stress test: (15) Vasculopathy: (16) Gastric ulcer: Plan #Acute on chronic heart failure with preserved ejection fraction #COPD exacerbation #4Liters nasal cannula [id number] at home #CORY on CKD #Chronic anemia #History of abdominal aortic aneurysm #Hyperlipidemia, hypertension, peripheral artery disease #Hyperkalemia #History of alcoholism -Edema has improved, creatinine 1.2, continue Lasix, continue Lasix 40 p.o. twice daily ? Continue supplementation of nasal cannula ? De-escalate antibiotics to doxycycline -Switch to prednisone 40 every 24 hours ? Continue DuoNeb every 4 however as needed ? CORY most likely secondary to cardiorenal syndrome. Continue to diurese patient. Nephrology consult ? Venous Doppler ruled out DVT - Replete magnesium today -Monitor for withdrawal symptoms -Bilateral extremity peripheral arterial disease, chronic limb ischemia, Doppler pulses, continue to monitor, active rewarming -Acute on chronic anemia, likely mixed, normal iron, normal ferritin, Hemoccult stool negative for stool, hemoglobin 8.2, status post 1 unit PRBC, Protonix, Carafate, upper GI series ordered -Given patient's chest pain complaints, serial EKGs) troponins, his echocardiogram done 14 days ago showed an EF of 65%, -Stress test positive, showing concerns for ischemia in the left circumflex RCA territory, continue aspirin, statin, beta-marnie, cardiology consulted, repeat echocardiogram pending -Atrial flutter this afternoon, started amiodarone drip increase metoprolol to 75 twice daily -Monitor CIWA -Paroxysmal atrial fibrillation, continue metoprolol anticoagulation on hold as concerns for anemia -Vasculopathy, peripheral vascular disease, CAD -Chest pain and shortness of breath, likely due to anemia, chest pain, positive stress test, fluid overload, Lasix as above -Patient is Gastrografin study -1. Persistent focal collection of contrast in the in the gastric antrum suspicious for an antral ulcer. No perforation or gastric outlet obstruction noted. 2. Prominent diverticulum of the third segment of the duodenum with filling defect which may be retained food. 3. Probable mild gastritis. Mild esophageal spasm. 4. Probable mild aneurysmal dilatation of the distal abdominal aorta. This could be assessed more accurately with ultrasound if thought to be clinically warranted. -Advised patient has high risk of bleeding if Plavix were to be started, he needs to have EGD however we do not have any general surgery coverage over the weekend -Plan is to consult general surgery when they come back on Wednesday to do an EGD -Hold Plavix for now, monitor for chest pain, continue to diurese, monitor hemoglobin Full code DVT prophylaxis: Heparin currently on hold due to anemia, SCDs Disposition: Home once medically stable Attestations Medical Necessity Statement*: Patient requires hospitalization for atrial flutter Coding Level of Care Code Acute Benefit Director for Chg Fwd Diagnoses CKD (chronic kidney disease) N18.9 COPD (chronic obstructive pulmonary disease) J44.9 CHF exacerbation I50.9 Acute kidney injury N17.9 PAD (peripheral artery disease) I73.9 HTN (hypertension) I10 Dyslipidemia E78.5 SVT (supraventricular tachycardia) I47.1 Chest pain R07.9 Afib I48.91 SVT (supraventricular tachycardia) I47.1 CAD (coronary artery disease) I25.10 GI bleed K92.2 Positive cardiac stress test R94.39 Vasculopathy I99.9 Gastric ulcer K25.9
[2022-02-15 16:24] LABS: Troponin T (5th) Once 51 ng/L (0-15)
--- NOTE | 2022-02-15 19:30 | PC.NURSE ---
Received in shift report that had given verbal order to hold IV albumin for now. Patients albumin was 5.1 today. Order is still in MAR, need clarification tomorrow if albumin is just to be held or discontinued.
[2022-02-15] MEDS: atorvastatin 40 mg Tablet PO (20:19)
[2022-02-15] MEDS: metoprolol tartrate 50 mg Tablet 75 MG PO (20:20)
--- NOTE | 2022-02-15 22:33 | PC.NURSE ---
Called and spoke with regarding patient heart rate still running between 120-130s, received his higher dose of 75mg of metoprolol over a hour ago and amiodarone gtt is due to decrease to 0.5mg/min at 23:30. said to decrease gtt as per protocol and continue to monitor heart rate. No new orders.
[2022-02-16] VITALS (38 sets, daily range): BP systolic 96–151; BP diastolic 66–112; PULSE 57–128; RESP 15–36; TEMP 36.4–36.5; O2SAT 82–97
[2022-02-16] MEDS: ipratropium-albuterol 3 mL Neb INHALATION ×4 (03:01→20:50)
[2022-02-16 05:18] LABS: Basophils % 0.1 %; Eosinophils # 0.1 10^3/uL (0.0-0.8); Hematocrit 26.8 % (42.0-52.0); Hemoglobin 8.3 g/dL (11.7-16.6); Lymphocytes # 1.4 10^3/uL (0.8-4.8); Lymphocytes % 12.3 %; Mean Corpuscular Hemoglobin 30.6 pg (28.0-34.0); Mean Corpuscular Volume 98.9 fl (80-94); Mean Platelet Volume 10.9 fL (7.4-10.4); Monocytes # 1.3 10^3/uL (0.2-0.9); Monocytes % 11.5 %; Neutrophils # 8.27 10^3/uL (1.8-7.7); Neutrophils % 74.5 %; Nucleated Red Blood Cells % 0 %; Platelet Count 221 10^3/cmm (130-400); Red Blood Count 2.71 10^6/uL (4.1-5.3); Red Cell Distribution Width 15.7 % (12.1-15.1); White Blood Count 11.1 10^3/uL (4.0-10.0)
[2022-02-16 05:43] LABS: Albumin Level 4.8 g/dL (3.5-5.2); Alkaline Phosphatase 57 U/L (40-130); Blood Urea Nitrogen 43 mg/dL (8-23); C Reactive Protein 12.3 mg/L (0.0-4.9); Calcium 9.1 mg/dL (8.5-10.5); Carbon Dioxide 33 mmol/L (22-29); Chloride 98 mmol/L (98-107); Globulin 2.1 g/dL (1.3-4.6); Glucose 84 mg/dL (65-115); Magnesium 1.8 mg/dL (1.7-2.3); Osmolality Calculated 304 mOsm/kg (285-295); Phosphorus 3.3 mg/dL (2.5-4.5); Sodium 142 mmol/L (136-145); Total Bilirubin 0.6 mg/dL (0.15-1.2); Total Protein 6.9 g/dL (6.6-8.7)
[2022-02-16 05:44] LABS: Alanine Aminotransferase 24 U/L (0-41); Anion Gap 15.2 (5-19); Aspartate Amino Transferase 27 U/L (0-40); Potassium 4.2 mmol/L (3.5-5.1)
--- NOTE | 2022-02-16 06:05 | PC.NURSE ---
Messaged regarding patients HR 120s, still on Amiodarone at 0.5mg/min. HR has not improved. ordered IV Metoprolol 5mg once.
--- NOTE | 2022-02-16 06:05 | PC.NURSE ---
Nikolas Cooper regarding patient heart rate
[2022-02-16] MEDS: metoprolol tartrate 1 mg/1 mL SDV 5 mL 5 MG IVP (06:08)
[2022-02-16 06:11] LABS: NT Pro B Type Natriuretic Pept 32184 pg/mL (0-125)
[2022-02-16] MEDS: metoprolol tartrate 50 mg Tablet 75 MG PO ×2 (08:17→17:53)
[2022-02-16] MEDS: folic acid 1 mg Tablet PO (08:17)
[2022-02-16] MEDS: budesonide 0.5 mg/2 mL Neb INHALATION ×2 (08:17→20:49)
[2022-02-16] MEDS: tamsulosin 0.4 mg Capsule PO (08:17)
[2022-02-16] MEDS: aspirin 81 mg EC Tablet PO (08:18)
[2022-02-16] MEDS: pantoprazole DR 40 mg Tablet PO ×2 (08:18→17:53)
[2022-02-16] MEDS: predniSONE 20 mg Tablet 40 MG PO (08:18)
[2022-02-16] MEDS: gabapentin 300 mg Capsule PO (08:18)
[2022-02-16] MEDS: montelukast sodium 10 mg Tablet PO (08:18)
[2022-02-16] MEDS: FUROsemide 40 mg Tablet PO (08:18)
[2022-02-16] MEDS: fluticasone nasal spray 16gm Btl 1 SPRAY INTRANASAL (08:19)
[2022-02-16] MEDS: doxycycline 100 mg Tablet PO ×2 (08:22→17:53)
[2022-02-16] MEDS: thiamine 100 mg Tablet PO (08:22)
[2022-02-16] MEDS: magnesium sulfate premix 2 GM/50 ML PIGGYBACK IV (08:22)
[2022-02-16] MEDS: dilTIAZem 60 mg Tablet PO (08:22)
[2022-02-16] MEDS: dilTIAZem 100 MG in sodium chloride 0.9% (add-van) 100 ML IV (10:08)
[2022-02-16] MEDS: amiodarone 200 mg Tablet 400 MG PO ×2 (12:20→23:31)
[2022-02-16] MEDS: sucralfate 1 gm Tablet PO ×3 (12:20→23:34)
--- NOTE | 2022-02-16 12:57 | PM.PN ---
Subjective Subjective: Patient was seen this morning, he remains in A. fib with RVR throughout the night, his metoprolol has been up to 75 twice daily, he is on amiodarone drip, he has been placed on Cardizem. He is alert oriented, he follows all commands, he really does not complain any chest pain or shortness of breath he does not know why his heart rates are so fast, Vitals/I&O/Wt Last Vital Signs Temp 97.7 F 02/16/22 07:34 Pulse 128 H 02/16/22 11:41 Resp 18 02/16/22 11:41 BP 105/77 02/16/22 11:41 Pulse Ox 93 02/16/22 11:41 O2 Del Method 02/16/22 11:41 O2 Flow Rate 4 02/16/22 11:41 FiO2 4 02/15/22 08:00 02/15/22 02/16/22 02/16/22 22:59 06:59 14:59 Intake Total 116.5749 / 1106.5749 620.992 / 1727.5669 645.354 / 645.354 Output Total 200 / 885 650 / 1535 Balance -83.4251 / 221.5749 -29.008 / 192.5669 645.354 / 645.354 Weight last 48 hrs Weight 87.798 kg Weight 87.543 kg Physical Exam Const: COMMON NORMALS: no acute distress and patient oriented x3 Resp: COMMON NORMALS: normal respiratory effort, No retractions, No use of accessory muscles and clear to auscultation bilaterally AUSCULTATION: clear to auscultation bilaterally Cardio: COMMON NORMALS: regular rate, regular rhythm, S1 normal heart sound present and S2 normal heart sound present RATE: regular rate RHYTHM: regular rhythm HEART SOUNDS: S1 normal heart sound present and S2 normal heart sound present GI: COMMON NORMALS: Normal to inspection, nondistended, normoactive bowel sounds present and non-tender Extremity: COMMON NORMALS: no pedal edema Neuro: COMMON NORMALS: patient oriented x3 Psych: COMMON NORMALS: mental status grossly normal Data 02/16/22 04:56 02/16/22 04:56 A&P Assessment and plan (1) CKD (chronic kidney disease): (2) COPD (chronic obstructive pulmonary disease): (3) CHF exacerbation: (4) Acute kidney injury: (5) PAD (peripheral artery disease): (6) HTN (hypertension): (7) Dyslipidemia: (8) SVT (supraventricular tachycardia): (9) Chest pain: (10) Afib: (11) SVT (supraventricular tachycardia): (12) CAD (coronary artery disease): (13) GI bleed: (14) Positive cardiac stress test: (15) Vasculopathy: (16) Gastric ulcer: Plan #Acute on chronic heart failure with preserved ejection fraction #COPD exacerbation #4Liters nasal cannula [id number] at home #CORY on CKD #Chronic anemia #History of abdominal aortic aneurysm #Hyperlipidemia, hypertension, peripheral artery disease #Hyperkalemia #History of alcoholism -Edema has improved, creatinine 1.2, continue Lasix, continue Lasix 40 p.o. twice daily ? Continue supplementation of nasal cannula ? De-escalate antibiotics to doxycycline -Switch to prednisone 40 every 24 hours ? Continue DuoNeb every 4 however as needed ? CORY most likely secondary to cardiorenal syndrome. Continue to diurese patient. Nephrology consult ? Venous Doppler ruled out DVT - Replete magnesium today -Monitor for withdrawal symptoms -Bilateral extremity peripheral arterial disease, chronic limb ischemia, Doppler pulses, continue to monitor, active rewarming -Acute on chronic anemia, likely mixed, normal iron, normal ferritin, Hemoccult stool negative for stool, hemoglobin 8.2, status post 1 unit PRBC, Protonix, Carafate, upper GI series ordered -Given patient's chest pain complaints, serial EKGs) troponins, his echocardiogram done 14 days ago showed an EF of 65%, -Stress test positive, showing concerns for ischemia in the left circumflex RCA territory, continue aspirin, statin, beta-marnie, cardiology consulted, repeat echocardiogram pending -Vasculopathy, peripheral vascular disease, CAD -Chest pain and shortness of breath, likely due to anemia, chest pain, positive stress test, fluid overload, Lasix as above, cardiology consulted -Patient is Gastrografin study -1. Persistent focal collection of contrast in the in the gastric antrum suspicious for an antral ulcer. No perforation or gastric outlet obstruction noted. 2. Prominent diverticulum of the third segment of the duodenum with filling defect which may be retained food. 3. Probable mild gastritis. Mild esophageal spasm. 4. Probable mild aneurysmal dilatation of the distal abdominal aorta. This could be assessed more accurately with ultrasound if thought to be clinically warranted. -Advised patient has high risk of bleeding if Plavix were to be started, general surgery consulted for the need of EGD -Hold Plavix for now, monitor for chest pain, continue to diurese, monitor hemoglobin -Remains in A. fib with RVR, switched to Cardizem drip, will consider digoxin, discussed with cardiology for possible need for QUINN with cardioversion Full code DVT prophylaxis: Heparin currently on hold due to anemia, SCDs Disposition: Home once medically stable Attestations Medical Necessity Statement*: Patient requires hospitalization for A. fib with RVR Coding Level of Care Code Acute Chief Medical Technologist for Chg Fwd Diagnoses CKD (chronic kidney disease) N18.9 COPD (chronic obstructive pulmonary disease) J44.9 CHF exacerbation I50.9 Acute kidney injury N17.9 PAD (peripheral artery disease) I73.9 HTN (hypertension) I10 Dyslipidemia E78.5 SVT (supraventricular tachycardia) I47.1 Chest pain R07.9 Afib I48.91 SVT (supraventricular tachycardia) I47.1 CAD (coronary artery disease) I25.10 GI bleed K92.2 Positive cardiac stress test R94.39 Vasculopathy I99.9 Gastric ulcer K25.9
[2022-02-16] MEDS: digoxin 250 mcg/ml INJ 2 mL IVP (13:20)
--- NOTE | 2022-02-16 13:36 | XRR_ITS ---
PROCEDURE INFORMATION: Exam: XR Chest Exam date and time: 02/16/2022 1:51 PM Age: 71 years old Clinical indication: Shortness of breath; Additional info: SOB TECHNIQUE: Imaging protocol: Radiologic exam of the chest. Views: 1 view. COMPARISON: CR (CHEST, ) 02/07/2022 9:21 PM FINDINGS: Lungs: Increasing markings are identified since the previous examination with early equalization of the pulmonary vascularity. Pleural spaces: Unremarkable. No pleural effusion. No pneumothorax. Heart/Mediastinum: The heart is at the upper limits of normal. Bones/joints: Unremarkable. XR/XR chest 1V portable [id number] IMPRESSION: Findings suggestive of early heart failure or fluid overload.
--- NOTE | 2022-02-16 13:40 | ECG_ITS ---
[facility] Test Date: 2022-02-16 Pat Name: Jamie Davison Department: Room: 101 Gender: Male Necktie Maker: : 1950 Requested By: Timi Roque Order Number: [id number] Bob MD: Gamaliel Varela M.D. Measurements Intervals [place] Rate: 125 P: 82 W[place]: 223 QRS: 32 QRSD: 81 T: 33 QT: 321 QTc: 464 Interpretive Statements SINUS TACHYCARDIA WITH FIRST DEGREE AV BLOCK Compared to ECG 02/15/2022 15:53:16 First degree AV block now present Atrial flutter no longer present ST (T wave) deviation no longer present Electronically Signed On 02-16-2022 17:04:50 MARINE DESIGNER by Gamaliel Varela M.D. [id number]
[2022-02-16] MEDS: FUROsemide 10 mg/mL SDV 4mL 40 MG IVP ×2 (13:56→21:44)
--- NOTE | 2022-02-16 13:59 | PC.NURSE ---
Albumin held in MAR per Dr. rodriguez. Dr. schultz changed to give Albumin. See MAR.
[2022-02-16] MEDS: dilTIAZem 60 mg Tablet 90 MG PO ×2 (14:18→19:59)
[2022-02-16 14:25] LABS: Basophils % 0.1 %; Eosinophils % 0.3 %; Hematocrit 28.3 % (42.0-52.0); Hemoglobin 8.2 g/dL (11.7-16.6); Lymphocytes # 0.4 10^3/uL (0.8-4.8); Lymphocytes % 3.7 %; Mean Corpuscular Hemoglobin 30.5 pg (28.0-34.0); Mean Corpuscular Volume 105.2 fl (80-94); Mean Platelet Volume 10.3 fL (7.4-10.4); Monocytes # 0.5 10^3/uL (0.2-0.9); Monocytes % 4.5 %; Neutrophils # 10.09 10^3/uL (1.8-7.7); Neutrophils % 90.9 %; Nucleated Red Blood Cells % 0 %; Platelet Count 250 10^3/cmm (130-400); Red Blood Count 2.69 10^6/uL (4.1-5.3); Red Cell Distribution Width 15.6 % (12.1-15.1); White Blood Count 11.1 10^3/uL (4.0-10.0)
[2022-02-16 14:26] LABS: ABG PCO2 51.2 mmHg (35-45); ABG PH Result 7.42 (7.35-7.45); Arterial Blood Gas Hematocrit 25.7 % (42-52); Base Excess ABG 7.7 mmol/L (-2.0-2.0); Blood Gas Allen Test Pos; Blood Gas Sample Site Brachial, right; Blood Gas Sample Type Arterial; HCO3 ABG 33.2 mmol/L (22-26); Oxygen Device NC; PO2 ABG 67.8 mmHg (80.0-100.0)
[2022-02-16 14:46] LABS: Troponin(5th) Baseline 53 ng/L (0-15)
[2022-02-16 14:47] LABS: Anion Gap 16.4 (5-19); Blood Urea Nitrogen 43 mg/dL (8-23); Calcium 9.2 mg/dL (8.5-10.5); Carbon Dioxide 30 mmol/L (22-29); Chloride 96 mmol/L (98-107); Glucose 190 mg/dL (65-115); Osmolality Calculated 302 mOsm/kg (285-295); Potassium 4.4 mmol/L (3.5-5.1); Sodium 138 mmol/L (136-145)
--- NOTE | 2022-02-16 15:17 | ECG_ITS ---
[facility] Test Date: 2022-02-16 Pat Name: Jamie Davison Department: Room: 101 Gender: Male Food Sales Clerk: : 1950 Requested By: Timi Roque Order Number: [id number] Bob MD: Gamaliel Varela M.D. Measurements Intervals [place] Rate: 119 P: 0 NM: 0 QRS: 9 QRSD: 81 T: 10 QT: 329 QTc: 463 Interpretive Statements ATRIAL FIBRILLATION WITH RAPID VENTRICULAR RESPONSE Compared to ECG 02/16/2022 13:50:38 Sinus tachycardia no longer present First degree AV block no longer present Electronically Signed On 02-16-2022 18:27:38 AIRCRAFT CLEANING SUPERVISOR by Gamaliel Varela M.D. [id number]
[2022-02-16] MEDS: dilTIAZem 100 MG in sodium chloride 0.9% (add-van) 100 ML 15 MG IV (16:27)
[2022-02-16 16:49] LABS: Troponin 5 2HR 52.29 ng/L (0-15)
[2022-02-16 16:52] LABS: Troponin 5 2HR Delta -0.71 ABS# (0-10)
--- NOTE | 2022-02-16 16:52 | P.CONIM_ITS ---
Providers/Reason For Consult Consulting Physician/Specialty*: Dr. Kirk James, DO/General surgery Reason for Consult*: Possible antral ulcer Attending Physician: Timi Roque MD Primary Care Provider: Timi Roque MD History of Present Illness History of Present Illness Jamie Davison is a 71 year old male A. fib with RVR along with congestive heart failure and acute kidney injury. He was found to be anemic and upper GI series showed possible antral ulcer. For this reason general surgery was consulted. He denies any abdominal pain, nausea, emesis, diarrhea, constipation, hematochezia and/or melena. He has never had a colonoscopy. Review of Systems General: Reports: 10 or more systems reviewed and unremarkable except in HPI and below Medications/Allergies Home Medications Medication Instructions Recorded Confirmed Last Taken Type albuterol sulfate 90 mcg/actuation 2 puff inhalation Q4H PRN 09/20/19 02/05/22 Unknown History aerosol inhaler (Ventolin HFA) Shortness Of Breath budesonide-formoterol HFA 160 2 puff inhalation BID 09/20/19 02/05/22 02/05/22 History mcg-4.5 mcg/actuation aerosol inhaler (Symbicort) fluticasone propionate 50 2 spray intranasal DAILY PRN 09/20/19 02/05/22 Unknown History mcg/actuation nasal Allergy Symptoms spray,suspension (Flonase Allergy Relief) ipratropium 0.5 mg-albuterol 3 mg 3 ml inhalation Q6H PRN Shortness 09/20/19 02/05/22 Unknown History (2.5 mg base)/3 mL nebulization Of Breath soln montelukast 10 mg tablet 10 mg PO DAILY 09/20/19 02/05/22 02/05/22 History (Singulair) tizanidine 4 mg capsule 4 mg PO Q8H PRN Muscle Spasm 09/20/19 02/05/22 Unknown History metoprolol tartrate 50 mg tablet 50 mg PO BID 08/09/20 02/05/22 02/05/22 History lisinopril 20 mg tablet 20 mg PO DAILY #90 tabs 03/26/21 02/05/22 02/05/22 Rx furosemide 20 mg tablet 20 mg PO DAILY may take extra tab 01/28/22 02/05/2201/17 History if increase in swelling magnesium L-lactate 84 mg 84 mg PO .3-4 TIMES A WEEK 01/28/22 02/05/22 02/05/22 History tablet,extended release (Magtab) multivitamin 1 tab PO DAILY 01/28/22 02/05/22 02/05/22 History aspirin 81 mg tablet,delayed 81 mg PO DAILY 30 days #30 tabs 01/29/22 02/05/22 02/05/22 Rx release atorvastatin 40 mg tablet 40 mg PO BEDTIME 30 days #30 tabs 01/29/22 02/05/22 02/04/22 Rx folic acid 1 mg tablet 1 mg PO DAILY 30 days #30 tabs 01/29/22 02/05/22 02/05/22 Rx gabapentin 300 mg capsule 300 mg PO DAILY #30 caps 01/29/22 02/05/22 02/05/22 Rx tamsulosin 0.4 mg capsule (Flomax) 0.4 mg PO DAILY 30 days #30 caps 01/29/22 02/05/22 02/05/22 Rx thiamine mononitrate (vit B1) 100 100 mg PO DAILY 30 days #30 tabs 01/29/22 02/05/22 02/05/22 Rx mg tablet (Vitamin B-1 (mononitrate)) Allergies Allergy/AdvReac Type Severity Reaction Status Date / Time bupropion [From Wellbutrin] Allergy Mild ALGY-Hives Verified 02/05/22 15:02 Current Medications Generic Name Dose Route Start Last Admin Trade Name Freq PRN Reason Stop Dose Admin Acetaminophen 650 mg 02/05/22 20:31 02/14/22 09:12 Acetaminophen 325 Mg Tablet PO 650 mg Q6H PRN Administration Mild/Mod Pain Or Temp >/= 101 Albuterol Sulfate 2.5 mg 02/05/22 20:29 02/06/22 06:31 Albuterol 2.5 Mg/3 Ml Neb INHALATION 2.5 mg Q4H PRN Administration Shortness Of Breath Albuterol/Ipratropium 3 ml 02/06/22 02:00 02/16/22 14:07 Ipratropium-Albuterol 3 Ml Neb INHALATION 3 ml Q6H.RESP JONAS Administration Amiodarone HCl 400 mg 02/16/22 11:15 02/16/22 12:20 Amiodarone 200 Mg Tablet PO 400 mg Q12H JONAS Administration Aspirin 81 mg 02/06/22 09:00 02/16/22 08:18 Aspirin 81 Mg Ec Tablet PO 81 mg DAILY JONAS Administration Atorvastatin Calcium 40 mg 02/05/22 21:00 02/15/22 20:19 Atorvastatin 40 Mg Tablet PO 40 mg BEDTIME JONAS Administration Benzonatate 100 mg 02/14/22 10:15 02/14/22 20:43 Benzonatate 100 Mg Capsule PO 100 mg TID PRN Administration COUGH Budesonide 0.5 mg 02/07/22 20:10 02/16/22 08:17 Budesonide 0.5 Mg/2 Ml Neb INHALATION 0.5 mg BID.RESPIRATORY JONAS Administration Diltiazem HCl 90 mg 02/16/22 14:00 02/16/22 14:18 Diltiazem 60 Mg Tablet PO 90 mg Q6H JONAS Administration Doxycycline Monohydrate 100 mg 02/12/22 18:00 02/16/22 08:22 Doxycycline 100 Mg Tablet PO 100 mg BID JONAS Administration Protocol Fluticasone Propionate 1 spray 02/10/22 11:24 02/16/22 08:19 Fluticasone Nasal [place] 16gm Btl INTRANASAL 1 spray DAILY JONAS Administration Folic Acid 1 mg 02/06/22 09:00 02/16/22 08:17 Folic Acid 1 Mg Tablet PO 1 mg DAILY JONAS Administration Gabapentin 300 mg 02/06/22 09:00 02/16/22 08:18 Gabapentin 300 Mg Capsule PO 300 mg DAILY JONAS Administration Heparin Sodium (Porcine) 5,000 unit 02/05/22 20:45 02/09/22 08:46 Heparin 5,000 Unit/Ml Inj 1 Ml SUBCUT 5,000 unit Q12H JONAS Administration Albumin Human 25 gm in 100 mls @ 60 mls/hr 02/10/22 13:00 02/16/22 15:48 Albumin IV Infused Q8H JONAS Infusion Diltiazem HCl 100 mg/ Sodium 100 mls @ 0 mls/hr 02/16/22 09:45 02/16/22 16:27 Chloride IV 15 mg/hr .Q0M JONAS 15 mls/hr Administration Protocol Per Protocol Metoprolol Tartrate 75 mg 02/15/22 21:00 02/16/22 08:17 Metoprolol Tartrate 50 Mg Tablet PO 75 mg BID JONAS Administration Montelukast Sodium 10 mg 02/06/22 09:00 02/16/22 08:18 Montelukast Sodium 10 Mg Tablet PO 10 mg DAILY JONAS Administration Multivitamins/Minerals 1 tab 02/06/22 09:00 02/16/22 08:18 Multivitamin W/Minerals Tablet PO 1 tab DAILY JONAS Administration Pantoprazole Sodium 40 mg 02/10/22 18:00 02/16/22 08:[address] 40 Mg Tablet PO 40 mg BID JONAS Administration Prednisone 40 mg 02/10/22 09:00 02/16/22 08:18 Prednisone 20 Mg Tablet PO 40 mg DAILY JONAS Administration Sodium Chloride 1 spray 02/07/22 20:08 02/13/22 08:47 Saline Nasal [place] 44ml Btl NASAL 1 spray PRN PRN Administration DRYNESS Sucralfate 1 gm 02/13/22 12:45 02/16/22 12:20 Sucralfate 1 Gm Tablet PO 1 gm Q6H JONAS Administration Tamsulosin HCl 0.4 mg 02/06/22 09:00 02/16/22 08:17 Tamsulosin 0.4 Mg Capsule PO 0.4 mg DAILY JONAS Administration Thiamine Mononitrate 100 mg 02/06/22 09:00 02/16/22 08:22 Thiamine 100 Mg Tablet PO 100 mg DAILY JONAS Administration Tizanidine HCl 4 mg 02/05/22 20:29 02/11/22 04:07 Tizanidine 4 Mg Tablet PO 4 mg Q8H PRN Administration Muscle Spasm PFSH Acute PFSH: Medical History AAA (abdominal aortic aneurysm) CHF (congestive heart failure) COPD (chronic obstructive pulmonary disease) Dyslipidemia HTN (hypertension) PAD (peripheral artery disease) Surgical History Hx of aorto-femoral bypass Hx of hand surgery Previous back surgery Family History Father Hypertension CAD (coronary artery disease) Myocardial infarction Stroke Mother Cancer Denies family history of Diabetes Clotting disorder Dementia Chronic kidney disease (CKD) Suicide Anesthesia complication Bleeding disorder Lung disease Social History Smoking and tobacco status: former smoker Quit status (tobacco): has quit using tobacco Year quit tobacco: 2012 Alcohol intake: current Alcohol intake frequency: 0-2 Drinks per Day Lives independently: Yes Housing: House Vitals/I&O/Wt Last Vital Signs Temp 97.7 F 02/16/22 07:34 Pulse 97 02/16/22 15:57 Resp 20 H 02/16/22 15:57 BP 102/68 02/16/22 15:57 Pulse Ox 92 02/16/22 15:57 O2 Del Method 02/16/22 14:08 O2 Flow Rate 4 02/16/22 14:08 FiO2 4 02/15/22 08:00 02/16/22 02/16/22 02/16/22 06:59 14:59 22:59 Intake Total 620.992 / 1727.5669 845.354 / 845.354 165.25 / 1010.604 Output Total 650 / 1535 200 / 200 Balance -29.008 / 192.5669 645.354 / 645.354 165.25 / 810.604 Weight last 48 hrs Weight 193 lb 9 oz Weight 193 lb Data 02/16/22 14:03 02/16/22 14:03 A&P Assessment and plan (1) Gastric ulcer: Plan EGD in the morning The risks and benefits of the procedure, including bleeding, infection, intest inal perforation requiring surgery, missed lesion, or explained to the patient. He is understanding of the risks and wishes to proceed. Coding Level of Care Code Acute Powder Loader for Selvin Carvajald Diagnoses Gastric ulcer K25.9
--- NOTE | 2022-02-16 19:40 | ECG_ITS ---
[facility] Test Date: 2022-02-16 Pat Name: Jamie Davison Department: Room: 101 Gender: Male Head Start Teacher: : 1950 Requested By: Timi Roque Order Number: [id number] Bob MD: Noel Mcclure M.D. Measurements Intervals [place] Rate: 83 P: -39 MA: 170 QRS: 45 QRSD: 101 T: 86 QT: 357 QTc: 420 Interpretive Statements Atrial fibrillation with controlled ventricular response rate NONSPECIFIC ST & T-WAVE ABNORMALITY ABNORMAL RHYTHM ECG Compared to ECG 02/16/2022 15:17:05 T-wave abnormality now present Electronically Signed On 02-17-2022 20:43:02 SENIOR TALENT MANAGEMENT CONSULTANT by Noel Mcclure M.D. [id number]
[2022-02-16] MEDS: acetaminophen 325 mg Tablet 650 MG PO (19:57)
[2022-02-16 21:37] LABS: Troponin 5 6HR 51.37 ng/L (0-15)
[2022-02-16 21:39] LABS: Troponin 5 6HR Delta -1.63 ng/L (0-12)
[2022-02-16] MEDS: atorvastatin 40 mg Tablet PO (21:44)
--- NOTE | 2022-02-16 23:59 | ECG_ITS ---
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 Measurements Intervals [place] Rate: 38 P: 51 [place]: 264 QRS: -2 QRSD: 89 T: 5 QT: 570 QTc: 459 Interpretive Statements SINUS BRADYCARDIA WITH FIRST DEGREE AV BLOCK PROLONGED QT INTERVAL CRITICAL TEST RESULT Compared to ECG 02/16/2022 20:42:22 First degree AV block now present Prolonged QT interval now present Sinus rhythm no longer present T-wave abnormality no longer present Electronically Signed On 02-17-2022 20:34:29 [employer] by Noel Mcclure M.D. [id number]
[2022-02-17] VITALS (44 sets, daily range): BP systolic 77–153; BP diastolic 32–101; PULSE 36–67; RESP 13–24; TEMP 36.1–36.7; O2SAT 40–100
[2022-02-17] MEDS: lactated ringers 1,000 ML 999 ML IV (00:08)
[2022-02-17] MEDS: atropine 0.1 mg/mL Syr 10 mL 0.5 MG IVP ×2 (00:10→00:29)
--- NOTE | 2022-02-17 00:38 | PC.NURSE ---
present on floor and was notified of patient HR drop after dose of PO amiodarone and cardizem gtt had just been weaned off at 23:15. The patients BP was 77/50 patient states he is feeling lightheaded. EKG was performed showed sinus marion with prolonged QT per Dr Sharp stop amiodarone. IV bolus was given for low BPs. Atropine was administered x 2 dose, and calcium gluconate was also ordered. The patient HR was improved into the 50s. ordered to hold doses of cardizem for now.
[2022-02-17] MEDS: calcium gluconate 0.9% NaCL 1 GM/50 ML PREMIX IV (00:47)
[2022-02-17] MEDS: ipratropium-albuterol 3 mL Neb INHALATION ×2 (01:46→09:20)
--- NOTE | 2022-02-17 03:42 | XRR_ITS ---
PROCEDURE INFORMATION: Exam: XR Chest Exam date and time: 02/17/2022 3:50 AM Age: 71 years old Clinical indication: Shortness of breath; Patient HX: New onset of severe SOB. TECHNIQUE: Imaging protocol: Radiologic exam of the chest. Views: 1 view. COMPARISON: CR XR chest 1V portable [id number] 02/16/2022 1:51 PM FINDINGS: Lungs: Poor inspiratory effort with some crowding of pulmonary markings and possible accentuation of the apparent heart size. Stable mild right infrahilar pneumonia or atelectasis. Pleural spaces: Unremarkable. No pleural effusion. No pneumothorax. Heart/Mediastinum: See Lungs finding. Diaphragm: Stable elevation of the left hemidiaphragm consistent with eventration. Bones/joints: Unremarkable. XR/XR chest 1V portable [id number] IMPRESSION: 1. Poor inspiratory effort with some crowding of pulmonary markings and possible accentuation of the apparent heart size. 2. Stable mild right infrahilar pneumonia or atelectasis.
[2022-02-17] MEDS: LORazepam 2 mg/mL INJ 1 mL 0.5 MG IVP (03:48)
[2022-02-17 05:40] LABS: Basophils % 0.2 %; Eosinophils # 0.1 10^3/uL (0.0-0.8); Eosinophils % 0.8 %; Hematocrit 25.9 % (42.0-52.0); Hemoglobin 7.9 g/dL (11.7-16.6); Lymphocytes # 1.4 10^3/uL (0.8-4.8); Lymphocytes % 11.9 %; Mean Corpuscular HGB Conc 30.5 g/dL (30.0-36.0); Mean Corpuscular Hemoglobin 29.7 pg (28.0-34.0); Mean Corpuscular Volume 97.4 fl (80-94); Mean Platelet Volume 10.1 fL (7.4-10.4); Monocytes # 1.3 10^3/uL (0.2-0.9); Monocytes % 10.8 %; Neutrophils % 75.6 %; Nucleated Red Blood Cells % 0 %; Platelet Count 239 10^3/cmm (130-400); Red Blood Count 2.66 10^6/uL (4.1-5.3); Red Cell Distribution Width 15.6 % (12.1-15.1); White Blood Count 11.6 10^3/uL (4.0-10.0)
[2022-02-17 06:08] LABS: Alanine Aminotransferase 22 U/L (0-41); Alkaline Phosphatase 50 U/L (40-130); Anion Gap 16.2 (5-19); Aspartate Amino Transferase 19 U/L (0-40); Blood Urea Nitrogen 53 mg/dL (8-23); C Reactive Protein 8.6 mg/L (0.0-4.9); Calcium 9.6 mg/dL (8.5-10.5); Carbon Dioxide 33 mmol/L (22-29); Chloride 94 mmol/L (98-107); Globulin 1.9 g/dL (1.3-4.6); Glucose 103 mg/dL (65-115); NT Pro B Type Natriuretic Pept 25875 pg/mL (0-125); Osmolality Calculated 303 mOsm/kg (285-295); Potassium 4.2 mmol/L (3.5-5.1); Sodium 139 mmol/L (136-145); Total Bilirubin 0.7 mg/dL (0.15-1.2); Total Protein 6.9 g/dL (6.6-8.7)
[2022-02-17] MEDS: budesonide 0.5 mg/2 mL Neb INHALATION (09:20)
[2022-02-17] MEDS: predniSONE 20 mg Tablet 40 MG PO (09:22)
[2022-02-17] MEDS: aspirin 81 mg EC Tablet PO (09:22)
[2022-02-17] MEDS: doxycycline 100 mg Tablet PO ×2 (09:23→18:15)
[2022-02-17] MEDS: tamsulosin 0.4 mg Capsule PO (09:23)
[2022-02-17] MEDS: montelukast sodium 10 mg Tablet PO (09:23)
[2022-02-17] MEDS: gabapentin 300 mg Capsule PO (09:23)
[2022-02-17] MEDS: pantoprazole DR 40 mg Tablet PO ×2 (09:23→18:15)
[2022-02-17] MEDS: thiamine 100 mg Tablet PO (09:23)
[2022-02-17] MEDS: folic acid 1 mg Tablet PO (09:23)
[2022-02-17] MEDS: fluticasone nasal spray 16gm Btl 1 SPRAY INTRANASAL (09:24)
[2022-02-17 09:37] LABS: Digoxin < 0.3 ng/mL (0.6-1.2)
--- NOTE | 2022-02-17 10:43 | P.ANESASSM_ITS ---
Pre-Anesthetic Assessment Height/Weight: Height 1.85 m Weight 88.649 kg Temp Pulse Resp BP Pulse Ox O2 Del Method O2 Flow Rate 97.0 F L 51 L 22 H 120/73 95 4 02/17/22 10:04 02/17/22 10:04 02/17/22 10:04 02/17/22 10:04 02/17/22 10:04 02/17/22 10:04 02/17/22 10:04 FiO2 40 02/17/22 08:00 Operation Date: 02/17/22 10:30 Proposed Procedures p EGD(Not Applicable) - Kirk James DO Familial anesthetic complications: none Was Beta Darius taken within 24 hours: Yes Was Clonidine taken within 24 hours: N/A Social Alcohol and Tobacco (h/o smoking) Exam alert, oriented x 3 and regular rate & rhythm Airway Submandibular: within normal limits Cervical ROM: within normal limits Mallampati: Class II Dentition: chipped and loose Comments: Comments: Very poor dentition, multiple missing and loose Pulmonary Chronic Obstructive Pulmonary Disease CV/HEM Atrial Fibrillation, Anemia, Arrythmia (SVT), Coronary Artery Disease, Congesti ve Heart Failure, Hypertension and Peripheral Vascular Disease CONCLUSIONS ?1. Normal left ventricular size, systolic function with no ?diagnostic regional wall motion abnormalities. Left ventricular ?ejection fraction is estimated at 65 %. ?2. Normal right ventricular size and systolic function. ?3.? No prior similar studies to compare. ?Kathy Loza MD ?(Electronically Signed) ?Final Date:? ? ? 28 January 2022 Chronic Renal Insufficiency Anesthetic Plan ASA status: 3 Anesthesia: MAC Medications/Allergies Home Medications Medication Instructions Recorded Confirmed Last Taken Type albuterol sulfate 90 mcg/actuation 2 puff inhalation Q4H PRN 09/20/19 02/05/22 Unknown History aerosol inhaler (Ventolin HFA) Shortness Of Breath budesonide-formoterol HFA 160 2 puff inhalation BID 09/20/19 02/05/22 02/05/22 History mcg-4.5 mcg/actuation aerosol inhaler (Symbicort) fluticasone propionate 50 2 spray intranasal DAILY PRN 09/20/19 02/05/22 Unknown History mcg/actuation nasal Allergy Symptoms spray,suspension (Flonase Allergy Relief) ipratropium 0.5 mg-albuterol 3 mg 3 ml inhalation Q6H PRN Shortness 09/20/19 02/05/22 Unknown History (2.5 mg base)/3 mL nebulization Of Breath soln montelukast 10 mg tablet 10 mg PO DAILY 09/20/19 02/05/22 02/05/22 History (Singulair) tizanidine 4 mg capsule 4 mg PO Q8H PRN Muscle Spasm 09/20/19 02/05/22 Unknown History metoprolol tartrate 50 mg tablet 50 mg PO BID 08/09/20 02/05/22 02/05/22 History lisinopril 20 mg tablet 20 mg PO DAILY #90 tabs 03/26/21 02/05/22 02/05/22 Rx furosemide 20 mg tablet 20 mg PO DAILY may take extra tab 01/28/22 02/05/22 02/05/22 History if increase in swelling magnesium L-lactate 84 mg 84 mg PO .3-4 TIMES A WEEK 01/28/22 02/05/22 02/05/22 History tablet,extended release (Magtab) multivitamin 1 tab PO DAILY 01/28/22 02/05/22 02/05/22 History aspirin 81 mg tablet,delayed 81 mg PO DAILY 30 days #30 tabs 01/29/22 02/05/22 02/05/22 Rx release atorvastatin 40 mg tablet 40 mg PO BEDTIME 30 days #30 tabs 01/29/22 02/05/22 02/04/22 Rx folic acid 1 mg tablet 1 mg PO DAILY 30 days #30 tabs 01/29/22 02/05/22 02/05/22 Rx gabapentin 300 mg capsule 300 mg PO DAILY #30 caps 01/29/22 02/05/22 02/05/22 Rx tamsulosin 0.4 mg capsule (Flomax) 0.4 mg PO DAILY 30 days #30 caps 01/29/22 02/05/22 02/05/22 Rx thiamine mononitrate (vit B1) 100 100 mg PO DAILY 30 days #30 tabs 01/29/22 02/05/22 02/05/22 Rx mg tablet (Vitamin B-1 (mononitrate)) Allergies Allergy/AdvReac Type Severity Reaction Status Date / Time bupropion [From Wellbutrin] Allergy Mild ALGY-Hives Verified 02/05/22 15:02 Current Medications Generic Name Dose Route Start Last Admin Trade Name Ovidioq PRN Reason Stop Dose Admin Acetaminophen 650 mg 02/05/22 20:31 02/16/22 19:57 Acetaminophen 325 Mg Tablet PO 650 mg Q6H PRN Administration Mild/Mod Pain Or Temp >/= 101 Albuterol Sulfate 2.5 mg 02/05/22 20:29 02/06/22 06:31 Albuterol 2.5 Mg/3 Ml Neb INHALATION 2.5 mg Q4H PRN Administration Shortness Of Breath Albuterol/Ipratropium 3 ml 02/06/22 02:00 02/17/22 09:20 Ipratropium-Albuterol 3 Ml Neb INHALATION 3 ml Q6H.RESP JONAS Administration Aspirin 81 mg 02/06/22 09:00 02/17/22 09:22 Aspirin 81 Mg Ec Tablet PO 81 mg DAILY JONAS Administration Atorvastatin Calcium 40 mg 02/05/22 21:00 02/16/22 21:44 Atorvastatin 40 Mg Tablet PO 40 mg BEDTIME JONAS Administration Benzonatate 100 mg 02/14/22 10:15 02/14/22 20:43 Benzonatate 100 Mg Capsule PO 100 mg TID PRN Administration COUGH Budesonide 0.5 mg 02/07/22 20:10 02/17/22 09:20 Budesonide 0.5 Mg/2 Ml Neb INHALATION 0.5 mg BID.RESPIRATORY JONAS Administration Diltiazem HCl 90 mg 02/16/22 14:00 02/17/22 02:23 Diltiazem 60 Mg Tablet PO Not Given Q6H JONAS Doxycycline Monohydrate 100 mg 02/12/22 18:00 02/17/22 09:23 Doxycycline 100 Mg Tablet PO 100 mg BID JONAS Administration Protocol Fluticasone Propionate 1 spray 02/10/22 11:24 02/17/22 09:24 Fluticasone Nasal [place] 16gm Btl INTRANASAL 1 spray DAILY OJNAS Administration Folic Acid 1 mg 02/06/22 09:00 02/17/22 09:23 Folic Acid 1 Mg Tablet PO 1 mg DAILY JONAS Administration Furosemide 40 mg 02/16/22 21:00 02/16/22 21:44 Furosemide 10 Mg/Ml Sdv 4ml IVP 40 mg Q12H JONAS Administration Gabapentin 300 mg 02/06/22 09:00 02/17/22 09:23 Gabapentin 300 Mg Capsule PO 300 mg DAILY JONAS Administration Heparin Sodium (Porcine) 5,000 unit 02/05/22 20:45 02/09/22 08:46 Heparin 5,000 Unit/Ml Inj 1 Ml SUBCUT 5,000 unit Q12H JONAS Administration Albumin Human 25 gm in 100 mls @ 60 mls/hr 02/10/22 13:00 02/17/22 06:40 Albumin IV Infused Q8H JONAS Infusion Lorazepam 0.5 mg 02/16/22 15:30 02/17/22 03:48 Lorazepam 2 Mg/Ml Inj 1 Ml IVP 0.5 mg Q4H PRN Administration ANXIETY Metoprolol Tartrate 75 mg 02/15/22 21:00 02/16/22 17:53 Metoprolol Tartrate 50 Mg Tablet PO 75 mg BID [facility] Administration Montelukast Sodium 10 mg 02/06/22 09:00 02/17/22 09:23 Montelukast Sodium 10 Mg Tablet PO 10 mg DAILY JONAS Administration Multivitamins/Minerals 1 tab 02/06/22 09:00 02/17/22 09:23 Multivitamin W/Minerals Tablet PO 1 tab DAILY [facility] Administration Pantoprazole Sodium 40 mg 02/10/22 18:00 02/17/22 09:[address] 40 Mg Tablet PO 40 mg BID [facility] Administration Prednisone 40 mg 02/10/22 09:00 02/17/22 09:22 Prednisone 20 Mg Tablet PO 40 mg DAILY [facility] Administration Sodium Chloride 1 spray 02/07/22 20:08 02/13/22 08:47 Saline Nasal [place] 44ml Btl NASAL 1 spray PRN PRN Administration DRYNESS Sucralfate 1 gm 02/13/22 12:45 02/17/22 04:52 Sucralfate 1 Gm Tablet PO Not Given Q6H [facility] Tamsulosin HCl 0.4 mg 02/06/22 09:00 02/17/22 09:23 Tamsulosin 0.4 Mg Capsule PO 0.4 mg DAILY [facility] Administration Thiamine Mononitrate 100 mg 02/06/22 09:00 02/17/22 09:23 Thiamine 100 Mg Tablet PO 100 mg DAILY JONAS Administration Tizanidine HCl 4 mg 02/05/22 20:29 02/11/22 04:07 Tizanidine 4 Mg Tablet PO 4 mg Q8H PRN Administration Muscle Spasm PFSH Anesthesia Medical History AAA (abdominal aortic aneurysm) CHF (congestive heart failure) COPD (chronic obstructive pulmonary disease) Dyslipidemia HTN (hypertension) PAD (peripheral artery disease) Surgical History Hx of aorto-femoral bypass Hx of hand surgery Previous back surgery Family History Father Hypertension CAD (coronary artery disease) Myocardial infarction Stroke Mother Cancer Denies family history of Diabetes Clotting disorder Dementia Chronic kidney disease (CKD) Suicide Anesthesia complication Bleeding disorder Lung disease Social History Smoking and tobacco status: former smoker Quit status (tobacco): has quit using tobacco Year quit tobacco: 2012 Alcohol intake: current Alcohol intake frequency: 0-2 Drinks per Day Lives independently: Yes Housing: House Data Anesthesia 02/17/22 05:28 02/17/22 05:28 Short CBC 02/16/22 02/16/22 02/17/22 Range/Units 04:56 14:03 05:28 WBC 11.1 H 11.1 H 11.6 H (4.0-10.0) 10^3/uL Hgb 8.3 L 8.2 L 7.9 L (11.7-16.6) g/dL Hct 26.8 L 28.3 L 25.9 L (42.0-52.0) % MCV 98.9 H 105.2 H D 97.4 H D (80-94) fl Plt Count 221 250 239 (130-400) 10^3/cmm Neut % (Auto) 74.5 90.9 75.6 % Neut # (Auto) 8.27 H 10.09 H 8.80 H (1.8-7.7) 10^3/uL BMP 02/16/22 02/16/22 02/17/22 04:56 14:03 05:28 Sodium 142 138 139 Potassium 4.2 4.4 4.2 Chloride 98 96 L 94 L Carbon Dioxide 33 H 30 H 33 H BUN 43 H 43 H 53 H Creatinine 1.3 H 1.1 1.8 H Glucose 84 190 H 103 Calcium 9.1 9.2 9.6 Cardiac Enzymes 02/15/22 02/16/2202/16/22 Range/Units 15:45 04:56 04:56 Troponin T Gen 5 ng/L 51 H (0-15) ng/L Troponin T Baseline (0-15) ng/L Troponin T 120 Minute (0-15) ng/L Delta Troponin T (0-10) ABS# Troponin T Hi Sens 6Hr (0-15) ng/L Troponin T Hi Sens 6Hr Delta (0-12) ng/L NT-Pro-B Natriuret Pep [id number] H Cancelled (0-125) pg/mL 02/16/22 02/16/22 02/16/22 Range/Units 14:03 16:14 20:41 Troponin T Gen 5 ng/L (0-15) ng/L Troponin T Baseline 53 H (0-15) ng/L Troponin T 120 Minute 52.29 H (0-15) ng/L Delta Troponin T -0.71 L (0-10) ABS# Troponin T Hi Sens 6Hr 51.37 H (0-15) ng/L Troponin T Hi Sens 6Hr Delta -1.63 L (0-12) ng/L NT-Pro-B Natriuret Pep (0-125) pg/mL 02/17/22 Range/Units 05:28 Troponin T Gen 5 ng/L (0-15) ng/L Troponin T Baseline (0-15) ng/L Troponin T 120 Minute (0-15) ng/L Delta Troponin T (0-10) ABS# Troponin T Hi Sens 6Hr (0-15) ng/L Troponin T Hi Sens 6Hr Delta (0-12) ng/L NT-Pro-B Natriuret Pep 02330 H (0-125) pg/mL Liver Function 02/16/22 02/17/22 Range/Units 04:56 05:28 Total Bilirubin 0.6 0.7 (0.15-1.2) mg/dL AST 27 19 (0-40) U/L ALT 24 22 (0-41) U/L Alkaline Phosphatase 57 50 (40-130) U/L Albumin 4.8 5.0 (3.5-5.2) g/dL Coags 02/16/22 02/17/22 04:56 05:28 C-Reactive Protein 12.3 H 8.6 H ABG 02/16/22 14:17 Specimen Type Arterial Sample Site Brachial, right ABG pH 7.42 ABG pCO2 51.2 H ABG pO2 67.8 L ABG HCO3 33.2 H ABG Base Excess 7.7 H O2 Delivery Device Nc O2 Liters/Min 4.0 Cardiac Studies: Echocardiogram 01/27/22 Echocardiogram Ultrasound 02/11/22 Sestamibi Stress Test (Cardiology) 02/11
--- NOTE | 2022-02-17 10:43 | W.PM.OPSUD ---
Surgery/Procedure H&P Update DATE OF PROCEDURE: February 17, 2022 DATE H&P PERFORMED: 02/16/22 PLANNED PROCEDURE: Operation Date: 02/17/22 10:30 Proposed Procedures p EGD(Not Applicable) - Kirk James DO
[2022-02-17] MEDS: sodium chloride 0.9% 1,000 ML 30 ML IV (10:51)
[2022-02-17] MEDS: sucralfate 1 gm Tablet PO ×3 (13:06→20:34)
--- NOTE | 2022-02-17 13:22 | ANE.PACU2 ---
Inpatient post-anesthesia follow up: Airway intact: Yes Vital signs: Temperature 98.0 F Pulse Rate 51 Respiratory Rate 13 Blood Pressure 121/72 Pulse Oximetry 92 Oxygen Delivery Me thod Nasal Cannula Oxygen Flow Rate 5 Fraction of Inspir ed Oxygen 40 Hydration adequate: Yes Nausea and vomiting: No Pain level: 1 Mental status: Baseline
--- NOTE | 2022-02-17 13:41 | PM.PN ---
Subjective Subjective: -Yesterday afternoon patient had A. fib with RVR heart rates in the 130s, not responding to amiodarone drip, amiodarone, Cardizem drip, was given digoxin to 50 push, his heart rates came down to the 60s, normotensive - Patient was examined multiple times throughout the morning -Overnight he developed sinus bradycardia heart rates in the low 30s required 2 doses of atropine and fluid bolus -This morning he was examined heart rates in the 40s to 50s, blood pressures 120s over 60s, alert oriented, following all commands he sitting up in bed he denies any chest pain, no palpitations, no lightheadedness, dizziness, he is a bit short of breath but nothing more than the usual he actually tells me he feels fine -Patient had EGD, EGD diagnosis significant findings as an upper GI source of his anemia -He was reexamined after his EGD currently heart rates in the 50s to 60s alert oriented x3, blood pressure 120s over 80s on 4 L, he sitting up in bed, he has no complaints, getting ready for lunch, he tells me he feels fine -I did discuss his CODE STATUS in detail with him he wants to be a full code, he is agreeable to dialysis if needed, he is agreeable to pacemaker placement as needed -However he tells me that he does not want to have any heroic measures if he does not have a chance of meaningful recovery -I confirmed with this multiple times with him multiple times Vitals/I&O/Wt Last Vital Signs Temp 98.0 F 02/17/22 12:00 Pulse 51 L 02/17/22 12:00 Resp 13 02/17/22 12:00 BP 121/72 02/17/22 12:00 Pulse Ox 92 02/17/22 11:28 O2 Del Method 02/17/22 11:28 O2 Flow Rate 5 02/17/22 11:28 FiO2 40 02/17/22 08:00 02/16/22 02/17/22 02/17/22 22:59 06:59 14:59 Intake Total 662.708 / 5604.682 7028.75 / 2661.812 100 / 100 Output Total 1050 / 1250 350 / 1600 Balance -387.292 / 258.062 803.75 / 1061.812 100 / 100 Weight last 48 hrs Weight 88.649 kg Weight 87.798 kg Physical Exam Const: COMMON NORMALS: no acute distress and patient oriented x3 Resp: COMMON NORMALS: normal respiratory effort, No retractions, No use of accessory muscles and clear to auscultation bilaterally AUSCULTATION: clear to auscultation bilaterally Cardio: COMMON NORMALS: regular rate, regular rhythm, S1 normal heart sound present and S2 normal heart sound present RATE: regular rate RHYTHM: regular rhythm HEART SOUNDS: S1 normal heart sound present and S2 normal heart sound present GI: COMMON NORMALS: Normal to inspection, nondistended, normoactive bowel sounds present and non-tender Neuro: COMMON NORMALS: patient oriented x3 Psych: COMMON NORMALS: mental status grossly normal Urinary Catheter Management: Ashley: Cath Placed During This Visit: yes Urinary Catheter Date of Insertion: 02/17/22 Urinary Catheter Time of Insertion: 09:30 Data 02/17/22 05:28 02/17/22 05:28 A&P Assessment and plan (1) CKD (chronic kidney disease): (2) COPD (chronic obstructive pulmonary disease): (3) CHF exacerbation: (4) Acute kidney injury: (5) PAD (peripheral artery disease): (6) HTN (hypertension): (7) Dyslipidemia: (8) SVT (supraventricular tachycardia): (9) Chest pain: (10) Afib: (11) SVT (supraventricular tachycardia): (12) CAD (coronary artery disease): (13) GI bleed: (14) Positive cardiac stress test: (15) Vasculopathy: (16) Gastric ulcer: Plan #Acute on chronic heart failure with preserved ejection fraction #COPD exacerbation #4Liters nasal cannula [id number] at home #CORY on CKD #Chronic anemia #History of abdominal aortic aneurysm #Hyperlipidemia, hypertension, peripheral artery disease #Hyperkalemia #History of alcoholism -Edema has improved, creatinine 1.8, continue Lasix, -3.6 L, currently holding Lasix ? Continue supplementation of nasal cannula ? Continue doxycycline -Switch to prednisone 40 every 24 hours ? Continue DuoNeb every 4 however as needed ? CORY could be cardiorenal syndrome versus hypotension, will hold Lasix repeat BMP in the afternoon ? Venous Doppler ruled out DVT - Replete magnesium, potassium -No withdrawal symptoms -Bilateral extremity peripheral arterial disease, chronic limb ischemia, Doppler pulses, continue to monitor, active rewarming -Acute on chronic anemia, likely mixed, normal iron, normal ferritin, Hemoccult stool negative for stool, hemoglobin 7-8, status post 1 unit PRBC, Protonix, Carafate, upper GI series ordered -1. Persistent focal collection of contrast in the in the gastric antrum suspicious for an antral ulcer. No perforation or gastric outlet obstruction noted. 2. Prominent diverticulum of the third segment of the duodenum with filling defect which may be retained food. 3. Probable mild gastritis. Mild esophageal spasm. 4. Probable mild aneurysmal dilatation of the distal abdominal aorta. This could be assessed more accurately with ultrasound if thought to be clinically warranted. -Has had 2 negative Hemoccult stools -Likely multifactoral anemia possibly related to alcoholism, bone marrow suppression -Given patient's chest pain complaints, serial EKGs) troponins, his echocardiogram done 14 days ago showed an EF of 65%, -Stress test positive, showing concerns for ischemia in the left circumflex RCA territory, continue aspirin, statin, beta-marnie, cardiology consulted, repeat echocardiogram pending -Vasculopathy, peripheral vascular disease, CAD -Chest pain and shortness of breath, improving, persists -For A. fib with RVR, resolved, but does have a high risk of recurrent atrial fibrillation will need to monitor -Beta-marnie, amiodarone, Cardizem on hold -Given his stable hemoglobin, no source of anemia, will start on heparin drip closely monitor hemoglobin for the next 24 hours, will look at l bolus, started on drip -Sinus bradycardia, likely secondary to AV blanka blocking agents, hold all blocking agents, monitor heart rate improving -He is agreeable to pacemaker placement if required -Positive stress test, creatinine is 1.8 will allow his kidneys to rest this afternoon recheck creatinine -We will hold off on Plavix for now until seen by cardiology, I placed him on heparin for NSTEMI and for atrial fibrillation, monitor hemoglobin every 6 hours -BiPAP as needed during the day for shortness of breath Full code DVT prophylaxis: SCD's, started on heparin at Disposition: Home once medically stable Attestations Medical Necessity Statement*: Patient requires position for positive stress test, A. fib with RVR now sinus bradycardia, Coding Level of Care Code Acute Loan Servicing Officer for g Fwd Diagnoses CKD (chronic kidney disease) N18.9 COPD (chronic obstructive pulmonary disease) J44.9 CHF exacerbation I50.9 Acute kidney injury N17.9 PAD (peripheral artery disease) I73.9 HTN (hypertension) I10 Dyslipidemia E78.5 SVT (supraventricular tachycardia) I47.1 Chest pain R07.9 Afib I48.91 SVT (supraventricular tachycardia) I47.1 CAD (coronary artery disease) I25.10 GI bleed K92.2 Positive cardiac stress test R94.39 Vasculopathy I99.9 Gastric ulcer K25.9
[2022-02-17 13:57] LABS: ABG PCO2 52.7 mmHg (35-45); ABG PH Result 7.39 (7.35-7.45); Arterial Blood Gas Hematocrit 25.1 % (42-52); Blood Gas LPM 3.5 %; Blood Gas Operator Identificat glc; Blood Gas Sample Site Brachial, right; Blood Gas Sample Type Arterial; HCO3 ABG 31.8 mmol/L (22-26); Oxygen Device NC
[2022-02-17 15:02] LABS: Platelet Count 228 10^3/cmm (130-400)
--- NOTE | 2022-02-17 17:23 | P.PN_ITS ---
Subjective Subjective: Heart rates improved. He is feeling short of breath. Plan for EGD today Vitals/I&O/Wt Last Vital Signs Temp 98.0 F 02/17/22 16:00 Pulse 59 L 02/17/22 16:00 Resp 19 H 02/17/22 16:00 BP 118/70 02/17/22 16:00 Pulse Ox 95 02/17/22 16:00 O2 Del Method 02/17/22 14:00 O2 Flow Rate 3.5 02/17/22 14:00 FiO2 40 02/17/22 08:00 02/17/22 02/17/22 02/17/22 06:59 14:59 22:59 Intake Total 1153.75 / 2661.812 440 / 440 Output Total 350 / 1600 Balance 803.75 / 1061.812 440 / 440 Weight last 48 hrs Weight 195 lb 7 oz Weight 193 lb 9 oz Physical Exam Narrative: GENERAL: Patient is alert, awake and oriented x3. [] NECK: No jugular vein distension. [] HEENT: No cyanosis. No icterus. No pallor. [] HEART: Regular S1 and S2. No murmur, rub or gallop. [] LUNGS: Diminished lung sounds ABDOMEN: Soft, nontender and nondistended. Positive bowel sounds. No guarding, rebound or tenderness. [] CENTRAL NERVOUS SYSTEM: Grossly nonfocal. [] EXTREMITIES: Lower extremities with 1+ edema bilaterally. Pulses palpable in the lower extremities, both dorsalis pedis and posterior tibial. [] Urinary Catheter Management: Ashley: Cath Placed During This Visit: yes Urinary Catheter Date of Insertion: 02/17/22 Urinary Catheter Time of Insertion: 09:30 Data 02/17/22 14:56 02/17/22 05:28 A&P Assessment and plan (1) Positive cardiac stress test: (2) SVT (supraventricular tachycardia): (3) Afib: (4) Chest pain: (5) CKD (chronic kidney disease): (6) COPD (chronic obstructive pulmonary disease): (7) PAD (peripheral artery disease): (8) HTN (hypertension): (9) Dyslipidemia: Plan Patient's heart rate improved. May need to take off rate controlling agents as has become bradycardic. Will hold off of cardiac cath as doesnt have symptoms of chest pain and has significant anemia. Thank you for involving us with care of this patient. Please call with questions Attestations Medical Necessity Statement*: Care expected to cross 2 midnights. Coding Level of Care Code Acute Supervisor Cell Maintenance for Selvin [employer]on Diagnoses Positive cardiac stress test R94.39 SVT (supraventricular tachycardia) I47.1 Afib I48.91 Chest pain R07.9 CKD (chronic kidney disease) N18.9 COPD (chronic obstructive pulmonary disease) J44.9 PAD (peripheral artery disease) I73.9 HTN (hypertension) I10 Dyslipidemia E78.5
[2022-02-17 17:38] LABS: Anion Gap 17.6 (5-19); Blood Urea Nitrogen 58 mg/dL (8-23); Calcium 9.7 mg/dL (8.5-10.5); Carbon Dioxide 32 mmol/L (22-29); Chloride 95 mmol/L (98-107); Glucose 150 mg/dL (65-115); Osmolality Calculated 309 mOsm/kg (285-295); Potassium 4.6 mmol/L (3.5-5.1); Sodium 140 mmol/L (136-145)
[2022-02-17 17:53] LABS: Hematocrit 25.2 % (42.0-52.0); Hemoglobin 7.8 g/dL (11.7-16.6)
[2022-02-17] MEDS: atorvastatin 40 mg Tablet PO (20:34)
[2022-02-17 20:43] LABS: Hematocrit 24.9 % (42.0-52.0); Hemoglobin 7.6 g/dL (11.7-16.6)
[2022-02-17 21:06] LABS: Partial Thromboplastin Time 122.6 SECONDS (23.9-36.7)
[2022-02-17] MEDS: albuterol 2.5 mg/3 mL Neb INHALATION (22:14)
[2022-02-18] VITALS (17 sets, daily range): BP systolic 118–146; BP diastolic 62–109; PULSE 66–95; RESP 16–24; TEMP 36.2–36.6; O2SAT 92–97
[2022-02-18] MEDS: ipratropium-albuterol 3 mL Neb INHALATION ×4 (02:15→20:20)
[2022-02-18 03:46] LABS: Basophils % 0.2 %; Eosinophils % 0.2 %; Hematocrit 25.8 % (42.0-52.0); Hemoglobin 7.6 g/dL (11.7-16.6); Lymphocytes # 0.8 10^3/uL (0.8-4.8); Lymphocytes % 7.2 %; Mean Corpuscular HGB Conc 29.5 g/dL (30.0-36.0); Mean Corpuscular Hemoglobin 29.7 pg (28.0-34.0); Mean Corpuscular Volume 100.8 fl (80-94); Mean Platelet Volume 10.9 fL (7.4-10.4); Monocytes # 1.3 10^3/uL (0.2-0.9); Neutrophils # 9.18 10^3/uL (1.8-7.7); Neutrophils % 80.5 %; Nucleated Red Blood Cells % 0.3 %; Platelet Count 216 10^3/cmm (130-400); Red Blood Count 2.56 10^6/uL (4.1-5.3); Red Cell Distribution Width 15.5 % (12.1-15.1); White Blood Count 11.4 10^3/uL (4.0-10.0)
[2022-02-18 04:21] LABS: Alanine Aminotransferase 23 U/L (0-41); Albumin Level 4.8 g/dL (3.5-5.2); Alkaline Phosphatase 56 U/L (40-130); Anion Gap 17.3 (5-19); Aspartate Amino Transferase 19 U/L (0-40); Blood Urea Nitrogen 59 mg/dL (8-23); C Reactive Protein 5.6 mg/L (0.0-4.9); Calcium 9.9 mg/dL (8.5-10.5); Carbon Dioxide 31 mmol/L (22-29); Chloride 94 mmol/L (98-107); Globulin 2.6 g/dL (1.3-4.6); Glucose 112 mg/dL (65-115); Magnesium 1.9 mg/dL (1.7-2.3); NT Pro B Type Natriuretic Pept 11217 pg/mL (0-125); Osmolality Calculated 303 mOsm/kg (285-295); Phosphorus 3.9 mg/dL (2.5-4.5); Potassium 4.3 mmol/L (3.5-5.1); Sodium 138 mmol/L (136-145); Total Bilirubin 0.9 mg/dL (0.15-1.2); Total Protein 7.4 g/dL (6.6-8.7)
[2022-02-18] MEDS: sucralfate 1 gm Tablet PO ×3 (06:45→20:33)
--- NOTE | 2022-02-18 08:06 | XRR_ITS ---
PROCEDURE INFORMATION: Exam: XR Chest Exam date and time: 02/18/2022 8:17 AM Age: 71 years old Clinical indication: Shortness of breath; Prior surgery; Surgery type: Hernia repair; Patient HX: New onset of severe SOB. TECHNIQUE: Imaging protocol: Radiologic exam of the chest. Views: 1 view. COMPARISON: CR (CHEST, ) 02/17/2022 3:50 AM FINDINGS: Lungs: There is increased interstitial markings and haziness of the lungs, which in the setting of cardiomegaly is consistent with pulmonary congestion. Pneumonia should be excluded clinically. Pleural spaces: No large pleural effusion. No pneumothorax. Heart/Mediastinum: Stable cardiomediastinal silhouette. Bones/joints: Degenerative changes of the spine seen. XR/XR chest 1V portable [id number] IMPRESSION: Imaging findings suggestive of pulmonary congestion. Pneumonia can have this appearance and should be excluded clinically.
[2022-02-18] MEDS: LORazepam 2 mg/mL INJ 1 mL 0.5 MG IVP (08:10)
[2022-02-18] MEDS: budesonide 0.5 mg/2 mL Neb INHALATION ×2 (08:34→20:20)
[2022-02-18] MEDS: FUROsemide 10 mg/mL SDV 10mL 60 MG IVP (08:45)
[2022-02-18] MEDS: predniSONE 20 mg Tablet 40 MG PO (08:52)
[2022-02-18] MEDS: doxycycline 100 mg Tablet PO ×2 (08:52→17:58)
[2022-02-18] MEDS: magnesium lactate 84 mg Tablet PO (08:52)
[2022-02-18] MEDS: tamsulosin 0.4 mg Capsule PO (08:52)
[2022-02-18] MEDS: montelukast sodium 10 mg Tablet PO (08:52)
[2022-02-18] MEDS: folic acid 1 mg Tablet PO (08:53)
[2022-02-18] MEDS: thiamine 100 mg Tablet PO (08:53)
[2022-02-18] MEDS: gabapentin 300 mg Capsule PO (08:53)
[2022-02-18] MEDS: pantoprazole DR 40 mg Tablet PO ×2 (08:53→17:58)
[2022-02-18] MEDS: aspirin 81 mg EC Tablet PO (08:53)
[2022-02-18] MEDS: acetaminophen 325 mg Tablet 650 MG PO (08:56)
[2022-02-18 10:00] LABS: ABG PCO2 47.1 mmHg (35-45); ABG PH Result 7.43 (7.35-7.45); Alveolar-Arterial Oxygen Gradi 21.8 mmHg (5-10); Arterial Blood Gas Hematocrit 23.7 % (42-52); Base Excess ABG 5.8 mmol/L (-2.0-2.0); Blood Gas Allen Test Pos; Blood Gas Operator Identificat glc; Blood Gas Sample Site Radial, left; Blood Gas Sample Type Arterial; Carboxyhemoglobin 1.7 %THgb (0.4-20.1); HCO3 ABG 30.9 mmol/L (22-26); HGB O2 Sat 90.4 % (95-100); Ionized Calcium Level - ABG 1.2 mmol/L (1.1-1.4); Methemoglobin 0.5 % (0.4-1.5); Oxygen Device NC; Oxygen Saturation ABG 92.5; PO2 ABG 62.8 mmHg (80.0-100.0); Potassium Level - ABG 3.6 mmol/L (3.5-5.0); Total Hemoglobin 7.7 g/dL (14-18)
--- NOTE | 2022-02-18 10:06 | PC.CHAP ---
Pastoral Care Encounter/Spiritual Assessment Type of Contact [] Declined title insurance examiner visit [] Patient/Family/Request visit [] Outpatient visit [] Follow-up visit [] Physician referral [] Code/Alert [x] Routine visit [] Staff referral [] Actively dying [] Patient sleeping [] Family support [] [] Out of room [] Palliative care [] [] Receiving care in room [] Pre-surgical visit [] Trauma [] Long length of stay [] ICU visit [] Other: Relational/Emotional Strength [] Patient feels connected with others/family/visitors/staff [] Distress [] Loneliness/isolation [] Abandonment Spirituality of Patient [x] Person of Karlene [] Attends Shinto of their Karlene [] Believes in Prayer [] Reads Bible or Taoism materials [] There are Spiritual issues to be addressed Tableau Lead Interventions [x] Prayer [x] Active listening [] Non-anxious presence []x Spiritual/emotional support [] Crisis/trauma care [] Spiritual counseling [] Bereavement support [] Provided bereavement packet [] Provided Bible/devotional materials [] Provided toy/stuffed animal, coloring book to patient or family member [] Provided Communion [] Anointing/[place] [] Salvation [x] Completed spiritual assessment [] Other: Impact on Illness or Injury [] Angry [] Fearful [] Anxious [] Often cries [] Exhaustion [] Unable to work [] Unable to attend baptist [] Unable to walk/stand [] Unable to read [] Unable to drive [] Unable to eat/drink [] Unable to sleep [] Unable to be with family [] Patient intubated [] Other: Summary Time spent with patient 5 min
[2022-02-18 10:26] LABS: Hematocrit 24.1 % (42.0-52.0); Hemoglobin 7.7 g/dL (11.7-16.6)
[2022-02-18 10:39] LABS: Partial Thromboplastin Time 40.8 SECONDS (23.9-36.7)
--- NOTE | 2022-02-18 13:30 | P.PN_ITS ---
Subjective Subjective: patient was seen this morning, he is more short of breath, no chest pain, no palpitations, overnight he was on heparin drip, he deveoped significant hematuria, heparin drip was ordered to be stopped by me, this morning his avery bag is pink tinged, i saw his family and him early this afternoon, i discussed the diffuclty of the situation, he unfortunately cant tolerate anticoagulants so far bc his hematuria,and anemia of 7.6, will have to hold off on any cardiac intervention unless urgently needed, will do best to medically manage him, will need to see urology Vitals/I&O/Wt Last Vital Signs Temp 97.4 F L 02/18/22 12:39 Pulse 85 02/18/22 12:39 Resp 18 02/18/22 11:34 BP 131/70 02/18/22 12:39 Pulse Ox 96 02/18/22 12:39 O2 Del Method 02/18/22 11:34 O2 Flow Rate 5 02/18/22 11:34 FiO2 40 02/18/22 00:09 02/17/22 02/18/22 02/18/22 22:59 06:59 14:59 Intake Total 340 / 780 100 / 100 Output Total 650 / 650 650 / 1300 890 / 890 Balance -310 / 130 -650 / -520 -790 / -790 Weight last 48 hrs Weight 88.649 kg Physical Exam Const: COMMON NORMALS: no acute distress Resp: COMMON NORMALS: normal respiratory effort, No retractions, No use of accessory muscles and clear to auscultation bilaterally AUSCULTATION: clear to auscultation bilaterally Cardio: COMMON NORMALS: regular rate, regular rhythm, S1 normal heart sound present and S2 normal heart sound present RATE: regular rate RHYTHM: regular rhythm HEART SOUNDS: S1 normal heart sound present and S2 normal heart sound present GI: COMMON NORMALS: Normal to inspection, nondistended, normoactive bowel sounds present and non-tender Extremity: COMMON NORMALS: no pedal edema Urinary Catheter Management: Avery: Cath Placed During This Visit: yes Reason for Continuing Indwelling Catheter: Other Urinary Catheter Date of Insertion: 02/17/22 Urinary Catheter Time of Insertion: 09:30 Data 02/18/22 10:20 02/18/22 03:15 A&P Assessment and plan (1) CKD (chronic kidney disease): (2) COPD (chronic obstructive pulmonary disease): (3) CHF exacerbation: (4) Acute kidney injury: (5) PAD (peripheral artery disease): (6) HTN (hypertension): (7) Dyslipidemia: (8) SVT (supraventricular tachycardia): (9) Chest pain: (10) Afib: (11) SVT (supraventricular tachycardia): (12) CAD (coronary artery disease): (13) GI bleed: (14) Positive cardiac stress test: (15) Vasculopathy: (16) Gastric ulcer: Plan #Acute on chronic heart failure with preserved ejection fraction #COPD exacerbation #4Liters nasal cannula [id number] at home #CORY on CKD #Chronic anemia #History of abdominal aortic aneurysm #Hyperlipidemia, hypertension, peripheral artery disease #Hyperkalemia #History of alcoholism -Edema has improved, creatinine 1.8, continue Lasix, -3.6 L, currently holding Lasix ? Continue supplementation of nasal cannula ? Continue doxycycline -Switch to prednisone 40 every 24 hours ? Continue DuoNeb every 4 however as needed ? CORY could be cardiorenal syndrome versus hypotension, will hold Lasix repeat BMP in the afternoon ? Venous Doppler ruled out DVT - Replete magnesium, potassium -No withdrawal symptoms -Bilateral extremity peripheral arterial disease, chronic limb ischemia, Doppler pulses, continue to monitor, active rewarming -Acute on chronic anemia, likely mixed, normal iron, normal ferritin, Hemoccult stool negative for stool, hemoglobin 7-8, status post 1 unit PRBC, Protonix, Carafate, upper GI series ordered -1. Persistent focal collection of contrast in the in the gastric antrum suspicious for an antral ulcer. No perforation or gastric outlet obstruction noted. 2. Prominent diverticulum of the third segment of the duodenum with filling defect which may be retained food. 3. Probable mild gastritis. Mild esophageal spasm. 4. Probable mild aneurysmal dilatation of the distal abdominal aorta. This could be assessed more accurately with ultrasound if thought to be clinically warranted. -Has had 2 negative Hemoccult stools -Likely multifactoral anemia possibly related to alcoholism, bone marrow sup pression -Given patient's chest pain complaints, serial EKGs) troponins, his echocardiog getachew done 14 days ago showed an EF of 65%, -Stress test positive, showing concerns for ischemia in the left circumflex RCA territory, continue aspirin, statin, beta-marnie, cardiology consulted, repeat echocardiogram pending -Vasculopathy, peripheral vascular disease, CAD -Chest pain and shortness of breath, improving, persists -For A. fib with RVR, resolved, but does have a high risk of recurrent atrial fibrillation will need to monitor -Beta-marnie, amiodarone, Cardizem on hold -Given his stable hemoglobin, no source of anemia, will start on heparin drip closely monitor hemoglobin for the next 24 hours, will look at l bolus, started on drip -Sinus bradycardia, likely secondary to AV blanka blocking agents, hold all blocking agents, monitor heart rate improving -He is agreeable to pacemaker placement if required -Positive stress test, creatinine is 1.9 -fluid overload, will daily odse lasix -We will hold off on Plavix for now until seen by cardiology, I placed him on heparin for NSTEMI and for atrial fibrillation,but hgb dropped to 7.6 and he developed significant hematuria, resulting in stopping heparin drip -BiPAP as needed during the day for shortness of breath Full code DVT prophylaxis: SCD's, will try subcut heparin Disposition: Home once medically stable Attestations Medical Necessity Statement*: patient requires hospitalization for hematuria, afib, fluid overload Coding Level of Care Code Acute Assurance Analyst for Chg Fwd Diagnoses CKD (chronic kidney disease) N18.9 COPD (chronic obstructive pulmonary disease) J44.9 CHF exacerbation I50.9 Acute kidney injury N17.9 PAD (peripheral artery disease) I73.9 HTN (hypertension) I10 Dyslipidemia E78.5 SVT (supraventricular tachycardia) I47.1 Chest pain R07.9 Afib I48.91 SVT (supraventricular tachycardia) I47.1 CAD (coronary artery disease) I25.10 GI bleed K92.2 Positive cardiac stress test R94.39 Vasculopathy I99.9 Gastric ulcer K25.9
[2022-02-18] MEDS: metoprolol tartrate 25 mg Tablet PO (14:30)
[2022-02-18 15:04] LABS: Hematocrit 23.1 % (42.0-52.0); Hemoglobin 7.5 g/dL (11.7-16.6)
[2022-02-18] MEDS: FUROsemide 10 mg/mL SDV 4mL 40 MG IVP (19:00)
[2022-02-18] MEDS: atorvastatin 40 mg Tablet PO (20:33)
[2022-02-18 22:16] LABS: Hematocrit 23.2 % (42.0-52.0); Hemoglobin 7.3 g/dL (11.7-16.6)
[2022-02-19] VITALS (71 sets, daily range): BP systolic 123–160; BP diastolic 64–111; PULSE 72–101; RESP 14–28; TEMP 36.6–36.9; O2SAT 91–99
[2022-02-19] MEDS: ipratropium-albuterol 3 mL Neb INHALATION ×5 (02:34→21:48)
[2022-02-19] MEDS: metoprolol tartrate 25 mg Tablet PO ×2 (03:42→13:54)
[2022-02-19 04:01] LABS: Hematocrit 24.2 % (42.0-52.0); Hemoglobin 7.6 g/dL (11.7-16.6)
[2022-02-19] MEDS: FUROsemide 10 mg/mL SDV 4mL 40 MG IVP ×2 (06:37→18:09)
[2022-02-19] MEDS: sucralfate 1 gm Tablet PO ×3 (06:37→20:09)
[2022-02-19] MEDS: budesonide 0.5 mg/2 mL Neb INHALATION ×2 (07:42→21:45)
[2022-02-19] MEDS: doxycycline 100 mg Tablet PO ×2 (08:19→18:08)
[2022-02-19] MEDS: tamsulosin 0.4 mg Capsule PO (08:20)
[2022-02-19] MEDS: montelukast sodium 10 mg Tablet PO (08:20)
[2022-02-19] MEDS: pantoprazole DR 40 mg Tablet PO ×2 (08:21→18:09)
[2022-02-19] MEDS: gabapentin 300 mg Capsule PO (08:21)
[2022-02-19] MEDS: folic acid 1 mg Tablet PO (08:21)
[2022-02-19] MEDS: magnesium lactate 84 mg Tablet PO (08:21)
[2022-02-19] MEDS: predniSONE 20 mg Tablet 40 MG PO (08:22)
[2022-02-19] MEDS: thiamine 100 mg Tablet PO (08:22)
[2022-02-19] MEDS: aspirin 81 mg EC Tablet PO (08:23)
[2022-02-19 08:25] LABS: Basophils % 0.3 %; Eosinophils % 0.3 %; Hematocrit 25.1 % (42.0-52.0); Hemoglobin 7.6 g/dL (11.7-16.6); Lymphocytes % 8.7 %; Mean Corpuscular HGB Conc 30.3 g/dL (30.0-36.0); Mean Corpuscular Hemoglobin 30.8 pg (28.0-34.0); Mean Corpuscular Volume 101.6 fl (80-94); Mean Platelet Volume 10.3 fL (7.4-10.4); Monocytes # 1.3 10^3/uL (0.2-0.9); Monocytes % 11.1 %; Neutrophils # 9.14 10^3/uL (1.8-7.7); Neutrophils % 78.8 %; Nucleated Red Blood Cells % 0 %; Platelet Count 216 10^3/cmm (130-400); Red Blood Count 2.47 10^6/uL (4.1-5.3); Red Cell Distribution Width 15.6 % (12.1-15.1); White Blood Count 11.6 10^3/uL (4.0-10.0)
[2022-02-19] MEDS: fluticasone nasal spray 16gm Btl 1 SPRAY INTRANASAL (08:25)
[2022-02-19] MEDS: acetaminophen 325 mg Tablet 650 MG PO ×2 (08:39→22:51)
[2022-02-19 08:56] LABS: Alanine Aminotransferase 20 U/L (0-41); Albumin Level 5.4 g/dL (3.5-5.2); Alkaline Phosphatase 60 U/L (40-130); Anion Gap 18.6 (5-19); Aspartate Amino Transferase 21 U/L (0-40); Blood Urea Nitrogen 54 mg/dL (8-23); Carbon Dioxide 30 mmol/L (22-29); Chloride 95 mmol/L (98-107); Globulin 1.9 g/dL (1.3-4.6); Glucose 78 mg/dL (65-115); Osmolality Calculated 304 mOsm/kg (285-295); Potassium 3.6 mmol/L (3.5-5.1); Sodium 140 mmol/L (136-145); Total Bilirubin 0.8 mg/dL (0.15-1.2); Total Protein 7.3 g/dL (6.6-8.7)
--- NOTE | 2022-02-19 10:10 | PM.PN ---
Subjective Subjective: Patient was seen this morning, he sitting up beside the bed, he tells me he feels a lot better, no chest pain, no palpitations, no recurrent bloody stools Vitals/I&O/Wt Last Vital Signs Temp 98.5 F 02/19/22 07:07 Pulse 86 02/19/22 07:44 Resp 16 02/19/22 07:44 BP 138/83 02/19/22 07:07 Pulse Ox 91 02/19/22 07:44 O2 Del Method 02/19/22 07:44 O2 Flow Rate 3.5 02/19/22 07:44 FiO2 40 02/18/22 20:00 02/18/22 02/19/22 02/19/22 22:59 06:59 14:59 Intake Total 920 / 1020 600 / 1620 820 / 820 Output Total 550 / 1890 2150 / 4040 Balance 370 / -870 -1550 / -2420 820 / 820 Weight last 48 hrs Weight 93.667 kg Physical Exam Const: COMMON NORMALS: no acute distress and patient oriented x3 Resp: COMMON NORMALS: normal respiratory effort, No retractions, No use of accessory muscles and clear to auscultation bilaterally AUSCULTATION: clear to auscultation bilaterally Cardio: COMMON NORMALS: regular rate, regular rhythm, S1 normal heart sound present and S2 normal heart sound present RATE: regular rate RHYTHM: regular rhythm HEART SOUNDS: S1 normal heart sound present and S2 normal heart sound present GI: COMMON NORMALS: Normal to inspection, nondistended, normoactive bowel sounds present and non-tender Extremity: NARRATIVE EXTREMITY EXAM: 1+ pitting edema bilateral extremity Neuro: COMMON NORMALS: patient oriented x3 Psych: COMMON NORMALS: mental status grossly normal Urinary Catheter Management: Ashley: Cath Placed During This Visit: yes Reason for Continuing Indwelling Catheter: Accurate Measurement of Urinary Output in Critically Ill Patients Urinary Catheter Date of Insertion: 02/17/22 Urinary Catheter Time of Insertion: 09:30 Data 02/19/22 07:59 02/19/22 07:59 A&P Assessment and plan (1) CKD (chronic kidney disease): (2) COPD (chronic obstructive pulmonary disease): (3) CHF exacerbation: (4) Acute kidney injury: (5) PAD (peripheral artery disease): (6) HTN (hypertension): (7) Dyslipidemia: (8) SVT (supraventricular tachycardia): (9) Chest pain: (10) Afib: (11) SVT (supraventricular tachycardia): (12) CAD (coronary artery disease): (13) GI bleed: (14) Positive cardiac stress test: (15) Vasculopathy: (16) Gastric ulcer: Plan #Acute on chronic heart failure with preserved ejection fraction #COPD exacerbation #4Liters nasal cannula [id number] at home #CORY on CKD #Chronic anemia #History of abdominal aortic aneurysm #Hyperlipidemia, hypertension, peripheral artery disease #Hyperkalemia #History of alcoholism -Edema has improved, creatinine 1.6, -5.9 L, continue Lasix ? Continue supplementation of nasal cannula ? Continue doxycycline -Switch to prednisone 40 every 24 hours ? Continue DuoNeb every 4 however as needed ? CORY could be cardiorenal syndrome versus hypotension ? Venous Doppler ruled out DVT - Replete magnesium, potassium -No withdrawal symptoms -Bilateral extremity peripheral arterial disease, chronic limb ischemia, Doppler pulses, continue to monitor, active rewarming -Acute on chronic anemia, likely mixed, normal iron, normal ferritin, Hemoccult stool negative for stool, hemoglobin 7-8, status post 1 unit PRBC, Protonix, Carafate, upper GI series ordered -1. Persistent focal collection of contrast in the in the gastric antrum suspicious for an antral ulcer. No perforation or gastric outlet obstruction noted. 2. Prominent diverticulum of the third segment of the duodenum with filling defect which may be retained food. 3. Probable mild gastritis. Mild esophageal spasm. 4. Probable mild aneurysmal dilatation of the distal abdominal aorta. This could be assessed more accurately with ultrasound if thought to be clinically warranted. -Has had 2 negative Hemoccult stools -Likely multifactoral anemia possibly related to alcoholism, bone marrow suppression -Has required 2 units PRBC, hemoglobin still 7.6, with hematuria, cannot tolerate anticoagulation -Given patient's chest pain complaints, serial EKGs) troponins, his echocardiogram done 14 days ago showed an EF of 65%, -Stress test positive, showing concerns for ischemia in the left circumflex RCA territory, continue aspirin, statin, beta-marnie, cardiology consulted, repeat echocardiogram pending -Vasculopathy, peripheral vascular disease, CAD -Chest pain and shortness of breath, improving, persists -For A. fib with RVR, resolved, but does have a high risk of recurrent atrial fibrillation will need to monitor -Beta-marnie, amiodarone, Cardizem on hold -Has not tolerated anticoagulation due to continued anemia, and hematuria -Sinus bradycardia, likely secondary to AV blanka blocking agents, hold all blocking agents, resolved -fluid overload, -We will hold off on Plavix due to issues with anemia and hematuria as above, I placed him on heparin for NSTEMI and for atrial fibrillation,but hgb dropped to 7.6 and he developed significant hematuria, resulting in stopping heparin drip -BiPAP as needed during the day for shortness of breath -Continue Lasix therapy -plan on discharging tomorrow Full code DVT prophylaxis: SCD's, will try subcut heparin Disposition: Home once medically stable Attestations Medical Necessity Statement*: Patient requires hospitalization for fluid overload Coding Level of Care Code Acute Acid Operator for Chg Fwd Diagnoses CKD (chronic kidney disease) N18.9 COPD (chronic obstructive pulmonary disease) J44.9 CHF exacerbation I50.9 Acute kidney injury N17.9 PAD (peripheral artery disease) I73.9 HTN (hypertension) I10 Dyslipidemia E78.5 SVT (supraventricular tachycardia) I47.1 Chest pain R07.9 Afib I48.91 SVT (supraventricular tachycardia) I47.1 CAD (coronary artery disease) I25.10 GI bleed K92.2 Positive cardiac stress test R94.39 Vasculopathy I99.9 Gastric ulcer K25.9
[2022-02-19] MEDS: sodium chloride 0.9% (100 ml) 100 ML 50 ML (13:52)
[2022-02-19] MEDS: atorvastatin 40 mg Tablet PO (20:09)
[2022-02-20] VITALS (8 sets, daily range): BP systolic 135–166; BP diastolic 88–109; PULSE 74–94; RESP 15–21; TEMP 36.6; O2SAT 91–97
[2022-02-20] MEDS: metoprolol tartrate 25 mg Tablet PO (03:10)
[2022-02-20] MEDS: ipratropium-albuterol 3 mL Neb INHALATION ×2 (03:29→08:40)
[2022-02-20 03:49] LABS: Basophils % 0.1 %; Eosinophils % 0.2 %; Hematocrit 27.2 % (42.0-52.0); Hemoglobin 8.4 g/dL (11.7-16.6); Lymphocytes # 0.9 10^3/uL (0.8-4.8); Lymphocytes % 6.7 %; Mean Corpuscular HGB Conc 30.9 g/dL (30.0-36.0); Mean Corpuscular Hemoglobin 30.2 pg (28.0-34.0); Mean Corpuscular Volume 97.8 fl (80-94); Mean Platelet Volume 10.6 fL (7.4-10.4); Monocytes # 1.2 10^3/uL (0.2-0.9); Monocytes % 8.9 %; Neutrophils # 11.49 10^3/uL (1.8-7.7); Neutrophils % 83.4 %; Nucleated Red Blood Cells % 0 %; Platelet Count 202 10^3/cmm (130-400); Red Blood Count 2.78 10^6/uL (4.1-5.3); Red Cell Distribution Width 16.4 % (12.1-15.1); White Blood Count 13.8 10^3/uL (4.0-10.0)
[2022-02-20 04:19] LABS: Alanine Aminotransferase 19 U/L (0-41); Albumin Level 5.2 g/dL (3.5-5.2); Alkaline Phosphatase 55 U/L (40-130); Anion Gap 16.8 (5-19); Aspartate Amino Transferase 21 U/L (0-40); Blood Urea Nitrogen 55 mg/dL (8-23); Calcium 10.1 mg/dL (8.5-10.5); Carbon Dioxide 31 mmol/L (22-29); Chloride 94 mmol/L (98-107); Globulin 1.9 g/dL (1.3-4.6); Glucose 88 mg/dL (65-115); Magnesium 1.6 mg/dL (1.7-2.3); NT Pro B Type Natriuretic Pept 17483 pg/mL (0-125); Osmolality Calculated 301 mOsm/kg (285-295); Phosphorus 3.5 mg/dL (2.5-4.5); Potassium 3.8 mmol/L (3.5-5.1); Sodium 138 mmol/L (136-145); Total Protein 7.1 g/dL (6.6-8.7)
[2022-02-20] MEDS: FUROsemide 10 mg/mL SDV 4mL 40 MG IVP (06:02)
[2022-02-20] MEDS: sucralfate 1 gm Tablet PO (06:02)
[2022-02-20] MEDS: budesonide 0.5 mg/2 mL Neb INHALATION (08:41)
[2022-02-20] MEDS: folic acid 1 mg Tablet PO (09:24)
[2022-02-20] MEDS: gabapentin 300 mg Capsule PO (09:24)
[2022-02-20] MEDS: predniSONE 20 mg Tablet 30 MG PO (09:24)
[2022-02-20] MEDS: pantoprazole DR 40 mg Tablet PO (09:25)
[2022-02-20] MEDS: aspirin 81 mg EC Tablet PO (09:25)
[2022-02-20] MEDS: thiamine 100 mg Tablet PO (09:25)
[2022-02-20] MEDS: magnesium lactate 84 mg Tablet PO (09:25)
[2022-02-20] MEDS: montelukast sodium 10 mg Tablet PO (09:25)
[2022-02-20] MEDS: tamsulosin 0.4 mg Capsule PO (09:26)
[2022-02-20] MEDS: metoprolol tartrate 25 mg Tablet 50 MG PO (09:26)
[2022-02-20] MEDS: fluticasone nasal spray 16gm Btl 1 SPRAY INTRANASAL (09:26)
--- NOTE | 2022-02-20 10:24 | PM.DCS ---
Discharge Providers Date of Admission: 02/10/22 13:26 Date of Discharge: February 20, 2022 Attending Provider at Admission: Alejo Palmer Attending Provider at Discharge: Timi Roque MD Primary Care Provider: Timi Roque MD Diagnoses at Discharge Discharge Diagnosis (1) Positive cardiac stress test: Status: Acute (2) SVT (supraventricular tachycardia): Status: Acute (3) Afib: Status: Acute (4) Chest pain: Status: Acute (5) CKD (chronic kidney disease): Status: Acute (6) COPD (chronic obstructive pulmonary disease): Status: Acute (7) PAD (peripheral artery disease): Status: Acute (8) HTN (hypertension): Status: Acute (9) Dyslipidemia: Status: Acute Reason for Visit Reason for Visit: SOB Hospital Course Hospital Course This is a 71-year-old male with a past medical history of COPD, heart failure with preserved ejection fraction, on 4 L, history of chronic kidney disease, BPH, peripheral vascular disease presents [facility] for shortness of breath Patient had a prolonged hospitalization, over 2 weeks please look at my prior progress notes for further detail Patient was admitted to [facility] found to have acute on chronic systolic and diastolic systolic CHF exacerbation, with bilateral extremity edema, fluid overload. He received a prolonged course of inpatient diuresis, which was marred by CORY, but overall clinically improved. He is overall -8 L, ambulating without any any significant symptomatology, no significant lower extremity edema. Will be discharged with Lasix 40 twice daily potassium 20 mg twice daily with close follow-up with me on clinic on Wednesday. Patient's clinical course was complicated with positive stress test as a complaints of chest pain Echocardiogram showed LV systolic function is normal with EF of 60 to 65%. ?Dilated left atrium ?Moderate mitral regurgitation ?Aortic valve is thickened.? Trace aortic regurgitation. ?Moderate tricuspid regurgitation.? Severe pulmonary hypertension ?Mild pulmonic regurgitation ?Compared to prior ecchocardiogram from 01/28/2022, this ?echocardiogram shows severe pulmonary hypertension and moderate ?mitral regurgitation stress test showed IMPRESSIONS ?1. Abnormal myocardial perfusion imaging with moderate sized area of ischemia ?seen in LAD territory. There is large sized prior infarct with cleo-infarct ?ischemia seen in the LCx and RCA territory. ?2. LV systolic function is normal ?3. Elevated TID ratio suggestive of multivessel CAD/subendocardial ischemia -He was managed with aspirin, statin, eventually onto Plavix -Initially patient was not deemed a great candidate for coronary angiography given his CORY, and persistent anemia due to concerns for bleeding, -Overall as he clinically improved, remained relatively asymptomatic, chest pain-free, decision was made to medically manage him -He will be discharged with aspirin, statin, Plavix, beta-marnie with close follow-up with me in clinic and follow-up with cardiology in 2 weeks -If he were to have any recurrent chest pain to the emergency room Patient developed new onset atrial fibrillation during his hospitalization, with episodes of recurrent A. fib with RVR, -His atrial fibrillation at times was difficult to manage, with heart rates in the 150s, requiring amiodarone drip, digoxin -His A. fib was complicated then with A. fib with bradycardia heart rates in the low 30s -Discussion was made about possible pacemaker placement, for tachybradycardia syndrome, pacemaker dysfunction however his heart rates improved with holding medications -Eventually he was started back on metoprolol which was titrated up to 50 twice daily, tolerating well, no recurrent bradycardic episodes -Discharged with close follow-up with with me and cardiology as outpatient -In terms of his atrial fibrillation I cannot really discharge him on anticoagulation-Due to anemia, hematuria, I discussed morbidity and mortality associated with acute CVAs associated with atrial fibrillation he fortunately, all questions answered -For now we will keep on aspirin and Plavix which will provide some benefit, risks and benefits discussed he voiced understanding, all present answered, agreed to proceed . His hospital course was complicated with anemia -Etiology of his anemia is likely multifactorial from alcoholism, chronic bone marrow suppression -He has received roughly 3 units of blood during his hospitalization, he is Hemoccult has been negative twice -EGD was performed as he is upper GI series showed some findings concerning for possible antral ulcer however his EGD was relatively unremarkable -He was managed with aspirin, once his hemoglobin stabilized, -He was then tried on heparin drip for NSTEMI, for atrial fibrillation however his hemoglobin dropped to 7.6, and he developed significant hematuria which was recurrent -Thus his heparin was stopped -This is certainly a difficult situation as any significant form of anticoagulation resulted either anemia or hematuria, and he is required 3 units of blood during his hospitalization -I have managed him with at least aspirin and Plavix during his hospitalization so far he is tolerated it well -I will have him follow-up with me on Wednesday, if he develops anemia recurrent anemia we might have to take him off the Plavix -I discussed the risks and benefits of antiplatelet therapy including Plavix, risks including but not limited to significant GI bleed morbidity or mentality associated he voiced understanding, all questions answered, agreed to proceed -Monitor reported black stools, if still with emergency room for his hematuria, I am going to have him have him follow-up with Dr. Link for consideration of Cystoscopy Strongly advised him to abstain from alcohol consumption Patient unfortunate does not qualify for home health care, as his prior home health care companies have fired him due to his behaviors at home Physical Exam Const: COMMON NORMALS: no acute distress and patient oriented x3 Resp: COMMON NORMALS: normal respiratory effort, No retractions, No use of accessory muscles and clear to auscultation bilaterally AUSCULTATION: clear to auscultation bilaterally Cardio: COMMON NORMALS: regular rate, regular rhythm, S1 normal heart sound present and S2 normal heart sound present RATE: regular rate RHYTHM: regular rhythm HEART SOUNDS: S1 normal heart sound present and S2 normal heart sound present GI: COMMON NORMALS: Normal to inspection, nondistended, normoactive bowel sounds present and non-tender Extremity: COMMON NORMALS: no pedal edema Neuro: COMMON NORMALS: patient oriented x3 Psych: COMMON NORMALS: mental status grossly normal Urinary Catheter Management: Ashley: Cath Placed During This Visit: yes Reason for Continuing Indwelling Catheter: Acute Urinary Retention or Obstruction Urinary Catheter Date of Insertion: 02/17/22 Urinary Catheter Time of Insertion: 09:30 Discharge Data Studies Completed and Pending Completed Studies During Hospitalization Category Date Time Status CXRP [XR chest 1V portable [id number]] Stat Exams 02/07/22 20:06 Completed CXRP [XR chest 1V portable [id number]] Urgent Exams 02/18/22 08:06 Completed FL upper GI gastrografin [id number] Routine Exams 02/13/22 Completed Sestamibi Stress Test Request Routine Exams 02/11/22 06:15 Completed XR chest 1V portable [id number] Routine Exams 02/16/22 13:36 Completed XR chest 1V portable [id number] Stat Exams 02/05/22 15:10 Completed XR chest 1V portable [id number] Stat Exams 02/17/22 03:42 Completed NM andreina perf SPECT r/s* [id number] Routine Nuc Med 02/11/22 10:13 Completed CV echo complete* [id number] Routine Ultrasound 02/11/22 16:37 [place] [id number] Routine Ultrasound 02/05/22 20:36 Completed Pending at discharge Category Date Time Status Sestamibi Stress Test Request Routine Exams 02/10/22 10:13 Stop Req Complete Blood Count w/Auto AM LABS Lab 02/21/22 04:00 Ordered Complete Blood Count w/Auto AM LABS Lab 02/22/22 04:00 Ordered Comprehensive Metabolic Panel AM LABS Lab 02/21/22 04:00 Ordered Comprehensive Metabolic Panel AM LABS Lab 02/22/22 04:00 Ordered Magnesium AM LABS Lab 02/21/22 04:00 Ordered Magnesium AM LABS Lab 02/22/22 04:00 Ordered NT Pro B Type Natriuretic Pept QAM Lab 02/21/22 06:00 Ordered NT Pro B Type Natriuretic Pept QAM Lab 02/22/22 06:00 Ordered Phosphorus AM LABS Lab 02/21/22 04:00 Ordered Phosphorus AM LABS Lab 02/22/22 04:00 Ordered Platelet Count Q2D Lab 02/21/22 04:00 Ordered Radiology Impressions Gastrografin Study 02/13/22 00:00 IMPRESSION: 1. Persistent focal collection of contrast in the in the gastric antrum suspicious for an antral ulcer. No perforation or gastric outlet obstruction noted. 2. Prominent diverticulum of the third segment of the duodenum with filling defect which may be retained food. 3. Probable mild gastritis. Mild esophageal spasm. 4. Probable mild aneurysmal dilatation of the distal abdominal aorta. This could be assessed more accurately with ultrasound if thought to be clinically warranted. Chest X-Ray 02/18/22 08:06 IMPRESSION: Imaging findings suggestive of pulmonary congestion. Pneumonia can have this appearance and should be excluded clinically. Laboratory Results WBC 13.8 10^3/uL (4.0-10.0) H 02/20/22 02:30 Corrected WBC Cancelled 02/13/22 04:15 RBC 2.78 10^6/uL (4.1-5.3) L 02/20/22 02:30 Hgb 8.4 g/dL (11.7-16.6) L 02/20/22 02:30 Hct 27.2 % (42.0-52.0) L 02/20/22 02:30 MCV 97.8 fl (80-94) H 02/20/22 02:30 MCH 30.2 pg (28.0-34.0) 02/20/22 02:30 MCHC 30.9 g/dL (30.0-36.0) 02/20/22 02:30 RDW 16.4 % (12.1-15.1) H 02/20/22 02:30 Plt Count 202 10^3/cmm (130-400) 02/20/22 02:30 MPV 10.6 fL (7.4-10.4) H 02/20/22 02:30 Gran % Cancelled 02/13/22 04:15 Neut % (Auto) 83.4 % 02/20/22 02:30 Lymph % (Auto) 6.7 % 02/20/22 02:30 Sharkey % (Auto) 8.9 % 02/20/22 02:30 Eos % (Auto) 0.2 % 02/20/22 02:30 Baso % (Auto) 0.1 % 02/20/22 02:30 Reticulocyte % (Auto) 2.1 % (0.5-2.0) H 02/09/22 09:28 Neut # (Auto) 11.49 10^3/uL (1.8-7.7) H 02/20/22 02:30 Lymph # (Auto) 0.9 10^3/uL (0.8-4.8) 02/20/22 02:30 Sharkey # (Auto) 1.2 10^3/uL (0.2-0.9) H 02/20/22 02:30 Eos # (Auto) 0.0 10^3/uL (0.0-0.8) 02/20/22 02:30 Baso # (Auto) 0.0 10^3/uL (0.0-0.1) 02/20/22 02:30 Absolute Gran (auto) Cancelled 02/13/22 04:15 Nucleated RBC % (auto) 0 % 02/20/22 02:30 Nucleated RBCs # 0.0 /100WBC 02/20/22 02:30 PT 13.40 SECONDS (12.1-14.9) 02/11/22 09:32 INR 0.99 (0.8-1.2) 02/11/22 09:32 APTT 40.8 SECONDS (23.9-36.7) H D 02/18/22 10:20 D-Dimer 4.68 ug/mIFEU (0-0.59) H 02/05/22 21:34 Specimen Type Arterial 02/18/22 09:53 Sample Site Radial, left 02/18/22 09:53 ABG pH 7.43 (7.35-7.45) 02/18/22 09:53 ABG pCO2 47.1 mmHg (35-45) H 02/18/22 09:53 ABG pO2 62.8 mmHg (80.0-100.0) L 02/18/22 09:53 ABG HCO3 30.9 mmol/L (22-26) H 02/18/22 09:53 ABG O2 Saturation 92.5 02/18/22 09:53 ABG Base Excess 5.8 mmol/L (-2.0-2.0) H 02/18/22 09:53 Alberto Test Pos 02/18/22 09:53 A-a O2 Gradient 21.8 mmHg (5-10) H 02/18/22 09:53 Hematocrit 23.7 % (42-52) L 02/18/22 09:53 Hgb O2 Saturation 90.4 % (95-100) L 02/18/22 09:53 Carboxyhemoglobin 1.7 %THgb (0.4-20.1) 02/18/22 09:53 Methemoglobin 0.5 % (0.4-1.5) 02/18/22 09:53 Total Hemoglobin 7.7 g/dL (14-18) L 02/18/22 09:53 Sodium 139.0 mmol/L (131-143) 02/18/22 09:53 Potassium 3.6 mmol/L (3.5-5.0) 02/18/22 09:53 Glucose 133.0 mg/dL (70-115) H 02/18/22 09:53 Ionized Calcium 1.2 mmol/L (1.1-1.4) 02/18/22 09:53 O2 Delivery Device Nc 02/18/22 09:53 O2 Liters/Min 5.0 % 02/18/22 09:53 FiO2 40.0 % 02/18/22 09:53 Produce Manager ID glc 02/18/22 09:53 Sodium 138 mmol/L (136-145) 02/20/22 02:30 Potassium 3.8 mmol/L (3.5-5.1) 02/20/22 02:30 Chloride 94 mmol/L (98-107) L 02/20/22 02:30 Carbon Dioxide 31 mmol/L (22-29) H 02/20/22 02:30 Anion Gap 16.8 (5-19) 02/20/22 02:30 BUN 55 mg/dL (8-23) H 02/20/22 02:30 Creatinine 1.8 mg/dL (0.7-1.2) H 02/20/22 02:30 GFR Calculation Not Reportable 02/20/22 02:30 Glucose 88 mg/dL (65-115) 02/20/22 02:30 Calculated Osmolality 301 mOsm/kg (285-295) H 02/20/22 02:30 Lactic Acid 1.4 mmol/L (0.5-2.2) 02/05/22 15:00 Calcium 10.1 mg/dL (8.5-10.5) 02/20/22 02:30 Phosphorus 3.5 mg/dL (2.5-4.5) 02/20/22 02:30 Magnesium 1.6 mg/dL (1.7-2.3) L 02/20/22 02:30 Iron 64 ug/dL (59-158) 02/09/22 09:28 Ferritin 302 ng/mL (30-400) 02/09/22 09:28 Total Bilirubin 1.0 mg/dL (0.15-1.2) 02/20/22 02:30 AST 21 U/L (0-40) 02/20/22 02:30 ALT 19 U/L (0-41) 02/20/22 02:30 Alkaline Phosphatase 55 U/L (40-130) 02/20/22 02:30 Lactate Dehydrogenase 188 U/L (135-225) 02/11/22 06:05 Troponin T Gen 5 ng/L 51 ng/L (0-15) H 02/15/22 15:45 Troponin T Baseline 53 ng/L (0-15) H 02/16/22 14:03 Troponin T 120 Minute 52.29 ng/L (0-15) H 02/16/22 16:14 Delta Troponin T -0.71 ABS# (0-10) L 02/16/22 16:14 Troponin T Hi Sens 6Hr 51.37 ng/L (0-15) H 02/16/22 20:41 Troponin T Hi Sens 6Hr Delta -1.63 ng/L (0-12) L 02/16/22 20:41 C-Reactive Protein 5.6 mg/L (0.0-4.9) H 02/18/22 03:15 NT-Pro-B Natriuret Pep 23999 pg/mL (0-125) H 02/20/22 02:30 Total Protein 7.1 g/dL (6.6-8.7) 02/20/22 02:30 Albumin 5.2 g/dL (3.5-5.2) 02/20/22 02:30 Globulin 1.9 g/dL (1.3-4.6) 02/20/22 02:30 Vitamin B12 306 pg/mL (232-1245) 02/11/22 06:05 Folate 15.5 ng/mL (4.5-32.2) 02/11/22 06:05 Urine Color Yellow (Yellow) 02/08/22 02:01 Urine Appearance Clear (CLEAR) 02/08/22 02:01 Urine pH 5 (5-7) 02/08/22 02:01 Ur Specific [place] Line 1.010 (1.005-1.030) 02/08/22 02:01 Urine Protein Neg (Negative) 02/08/22 02:01 Urine Glucose (UA) Norm (Normal) 02/08/22 02:01 Urine Ketones Negative (Negative) 02/08/22 02:01 Urine Blood Neg (Negative) 02/08/22 02:01 Urine Nitrate Negative (Negative) 02/08/22 02:01 Urine Bilirubin Neg (Negative) 02/08/22 02:01 Urine Urobilinogen Norm mg/dL (Negative) 02/08/22 02:01 Ur Leukocyte Esterase Negative (Negative) 02/08/22 02:01 Urine RBC None /hpf (0-2) 02/08/22 02:01 Urine WBC None /hpf (0-5) 02/08/22 02:01 Ur Squamous Epith Cells 0-4 /hpf (0-5) H 02/08/22 02:01 Amorphous Sediment Not Reportable 02/08/22 02:01 Urine Bacteria None /hpf (NONE) 02/08/22 02:01 Digoxin < 0.3 ng/mL (0.6-1.2) L 02/17/22 05:28 Coronavirus 229E (PCR) Not detected (NOT DETECT) 02/05/22 15:38 Influenza Type A Ag negative (Negative) 02/14/22 15:10 Influenza Type B Ag negative (Negative) 02/14/22 15:10 SARS-CoV-2 (PCR) Not detected (NOT DETECT) 02/05/22 15:38 Blood Type B Positive 02/19/22 10:30 Rho(D) Type Positive 02/19/22 10:30 Antibody Screen Negative 02/19/22 10:30 Crossmatch See Detail 02/19/22 10:30 Vitals Last Vital Signs Temp 97.9 F 02/20/22 07:28 Pulse 88 02/20/22 08:48 Resp 18 02/20/22 08:42 BP 164/108 02/20/22 07:28 Pulse Ox 94 02/20/22 08:42 O2 Del Method 02/20/22 08:42 O2 Flow Rate 4 02/20/22 08:42 FiO2 40 02/18/22 20:00 Discharge Plan Discharge Patient Disposition: Home Condition: Stable Prescriptions: New sucralfate 1 gram Tablet 1 g PO Q12H 30 Days Qty: 60 0RF prednisone 20 mg Tablet See Rx Instructions .ROUTE .COMPLEX Qty: 15 0RF Rx Instructions: 1.5 tab a day for 5 days, 1 tab for 5 days, 0.5 for 5 days pantoprazole 40 mg Tablet,Delayed Release (Dr/Ec) 40 mg PO BID 30 Days Qty: 60 0RF Plavix 75 mg tablet 75 mg PO DAILY 30 Days Qty: 30 0RF Lasix 40 mg tablet 40 mg PO BID 30 Days Qty: 60 0RF Klor-Con M20 20 mEq tablet,ER particles/crystals 20 meq PO BID 30 Days Qty: 60 0RF Continued montelukast [Singulair] 10 mg tablet 10 mg PO DAILY tizanidine 4 mg capsule 4 mg PO Q8H PRN (Reason: Muscle Spasm) fluticasone propionate [Flonase Allergy Relief] 50 mcg/actuation spray,suspension 2 spray INTRANASAL DAILY PRN (Reason: Allergy Symptoms) Rx Instructions: administer into each nostril ipratropium-albuterol 0.5 mg-3 mg(2.5 mg base)/3 mL solution for nebulization 3 ml INHALATION Q6H PRN (Reason: Shortness Of Breath) multivitamin Tablet 1 tab PO DAILY atorvastatin 40 mg Tablet 40 mg PO BEDTIME 30 Days Qty: 30 0RF aspirin 81 mg Tablet,Delayed Release (Dr/Ec) 81 mg PO DAILY 30 Days Qty: 30 0RF Flomax 0.4 mg capsule 0.4 mg PO DAILY 30 Days Qty: 30 0RF metoprolol tartrate 50 mg tablet 50 mg PO BID 30 Days Qty: 60 0RF gabapentin 300 mg capsule 300 mg PO DAILY 30 Days Qty: 30 0RF folic acid 1 mg Tablet 1 mg PO DAILY 30 Days Qty: 30 0RF Vitamin B-1 (mononitrate) 100 mg Tablet 100 mg PO DAILY 30 Days Qty: 30 0RF Changed Ventolin HFA 90 mcg/actuation HFA aerosol inhaler 1 puff INHALATION Q4H PRN (Reason: Shortness Of Breath) Qty: 8.5 0RF Magtab 84 mg tablet extended release 84 mg PO BID 30 Days Qty: 60 0RF Symbicort 160-4.5 mcg/actuation HFA aerosol inhaler 1 puff INHALATION BID Qty: 10.2 0RF Discontinued lisinopril 20 mg tablet 20 mg PO DAILY Qty: 90 3RF Hold Instructions: Resume on 02/07/22. hold until seen by primary care furosemide 20 mg tablet 20 mg PO DAILY Hold Instructions: Resume on 02/07/22. hold until seen by primary care Discharge Orders: Discharge Order (Routine); Ordered 02/20/22 Ordered By: Timi Roque Referrals: Juan Link MD [Physician] - 2 weeks (hematuria) Gamaliel Varela M.D [Physician] - 2 weeks Timi Roque MD [Primary Care Provider] - 1-3 days Discharge Diet: Cardiac Discharge Activity: Resume usual activity Patient Instructions: Furosemide (By mouth) (Lasix), Sucralfate (By mouth) (Carafate), Prednisone (By mouth) (predniSONE Intensol, Prednicot, Deltasone, Leonid), Potassium Chloride (By mouth) (K-Dur, K-Celia, K-Tab, Sukhi Mur), Clopidogrel (By mouth) (Plavix), Pantoprazole (By mouth) (Protonix), GI Discharge Instructions, Opioid Safety Activity Restrictions/Additional Instructions: - Please see me in clinic on Wednesday -Please take Lasix 40 twice daily with potassium twice daily, monitor for lower extremity more shortness of breath if worsening come back to emergency room I have discharged on aspirin, Plavix, if you develop bloody or black stools or hematuria go to the emergency room -If you have any worsening chest pain or shortness of breath go to the emergency room Discharge Attestations Time Spent in Discharge Care*: less than 30 min Quality Metrics Clinical Quality Measures [ No reported AMI, CVA or VTE this stay] Coding Level of Care Code Acute g FW VT note Diagnoses Positive cardiac stress test R94.39 SVT (supraventricular tachycardia) I47.1 Afib I48.91 Chest pain R07.9 CKD (chronic kidney disease) N18.9 COPD (chronic obstructive pulmonary disease) J44.9 PAD (peripheral artery disease) I73.9 HTN (hypertension) I10 Dyslipidemia E78.5
[2022-02-20] MEDS: magnesium sulfate premix 2 GM/50 ML PIGGYBACK IV (10:33)
[2022-02-20] MEDS: FUROsemide 10 mg/mL SDV 10mL 60 MG IVP (10:33)
[2022-02-20] MEDS: clopidogrel 75 mg Tablet PO (10:34)
--- NOTE | 2022-02-20 13:46 | PC.NURSE ---
Patient was given discharge instructions and education and verbalized understanding. He was told to call Wednesday to set up appointments at clinics that where closed due to the holiday. After patient was put in car and nurse had went to the cafeteria, a volunteer came and found nurse and told her that the patient was back in the entry way and was having trouble breathing. Nurse met the son just in front of main entrance who told her the patient needed a urinal because he needed to urinate now. Nurse ran to ICU to retrieve a urinal and then found patient in a public bathroom trying to urinate and having a panic attack which patient stated was caused by his sister being present. Nurse (dia) stayed with patient at the main entrance until he was able to calm down and get back in the car.
== END 2022-02-20 12:31 | disposition home or self-care (01) | DRG 280 ==
LOC: ER 19:19 → MEDSURG 19:44 → CSU 02-10 10:09
PROVIDERS: Internal Medicine; Surgery; Admitting Provider Internal Medicine; Emergency Provider Emergency Medicine; PCP Family Medicine; Visit Provider Family Medicine
PROC: 0DJ08ZZ Inspection of Upper Intestinal Tract, Via Natural or Artificial Opening Endoscopic (ICD-10-PCS; CPT 43235; principal; 2022-02-17 10:30)
DX: I13.0 Hypertensive heart and chronic kidney disease with heart failure and stage 1 through stage 4 chronic kidney disease, or unspecified chronic kidney disease (principal); I21.4 Non-ST elevation (NSTEMI) myocardial infarction; I50.43 Acute on chronic combined systolic (congestive) and diastolic (congestive) heart failure; E87.20 Acidosis, unspecified; J44.1 Chronic obstructive pulmonary disease with (acute) exacerbation; N17.9 Acute kidney failure, unspecified; I47.1 Supraventricular tachycardia; N18.30 Chronic kidney disease, stage 3 unspecified; Z99.81 Dependence on supplemental oxygen; N40.1 Benign prostatic hyperplasia with lower urinary tract symptoms; R39.14 Feeling of incomplete bladder emptying; F10.10 Alcohol abuse, uncomplicated; D63.8 Anemia in other chronic diseases classified elsewhere; I71.40 Abdominal aortic aneurysm, without rupture, unspecified; E78.5 Hyperlipidemia, unspecified; Z98.890 Other specified postprocedural states; Z87.891 Personal history of nicotine dependence; Z79.82 Long term (current) use of aspirin; I25.2 Old myocardial infarction; R31.9 Hematuria, unspecified; I70.229 Atherosclerosis of native arteries of extremities with rest pain, unspecified extremity; R94.39 Abnormal result of other cardiovascular function study; I25.10 Atherosclerotic heart disease of native coronary artery without angina pectoris; I48.0 Paroxysmal atrial fibrillation; T50.2X6A Underdosing of carbonic-anhydrase inhibitors, benzothiadiazides and other diuretics, initial encounter; E83.42 Hypomagnesemia; E87.5 Hyperkalemia
CPT/HCPCS: 12345; 36415; 36430; 36600; 43235; 51702; 71045; 74240; 78452; 80048; 80051; 80053; 80162; 80503; 81001; 82274; 82330; 82607; 82728; 82746; 82803; 82805; 83540; 83605; 83615; 83735; 83880; 84100; 84484; 85014; 85018; 85025; 85045; 85049; 85378; 85610; 85730; 86140; 86850; 86900; 86920; 87070; 87205; 87635; 87804; 93005; 93017; 93306; 93970; 94640; 94660; 94664; 96366; 96367; 96372; 96374; 96375; 96376; 99285; A4222; A9500; G0378; J0282; J0456; J0461; J0610; J0696; J1160; J1644; J1940; J2060; J2704; J2785; J2930; J3475; J3490; J7030; J7050; J7060; J7120; J7512; J7613; J7626; P9016; P9046; P9047; Q0144; Q3014; Q9963

== ENCOUNTER → 2022-02-26 13:32 | Outpatient (BNVA) | payer MEDICARE, SELFPAY | PROVIDERS: PCP Family Medicine; Visit Provider Family Medicine | DX: J44.9 Chronic obstructive pulmonary disease, unspecified (principal); I25.10 Atherosclerotic heart disease of native coronary artery without angina pectoris; I48.91 Unspecified atrial fibrillation; N18.9 Chronic kidney disease, unspecified; N17.9 Acute kidney failure, unspecified; I99.9 Unspecified disorder of circulatory system; Z09 Encounter for follow-up examination after completed treatment for conditions other than malignant neoplasm; S91.309A Unspecified open wound, unspecified foot, initial encounter | CPT/HCPCS: 80053; 85025 ==

== ENCOUNTER → 2022-03-04 15:34 | Outpatient (BNVA) | payer MEDICARE, SELFPAY | PROVIDERS: PCP Family Medicine; Visit Provider Urology | DX: N20.1 Calculus of ureter (principal); R31.0 Gross hematuria; Z79.01 Long term (current) use of anticoagulants; N40.1 Benign prostatic hyperplasia with lower urinary tract symptoms | CPT/HCPCS: 51741; 51798; 52000; 80053; 81003; 87077; 87086; 87186; 88112; 99203 ==

== ENCOUNTER → 2022-03-17 12:13 | Outpatient (BNVA) | payer MEDICARE, SELFPAY | PROVIDERS: PCP Family Medicine; Visit Provider Family Medicine | DX: I10 Essential (primary) hypertension (principal); I73.9 Peripheral vascular disease, unspecified; E78.5 Hyperlipidemia, unspecified; R31.0 Gross hematuria; N20.1 Calculus of ureter; Z00.00 Encounter for general adult medical examination without abnormal findings; J44.9 Chronic obstructive pulmonary disease, unspecified; I48.91 Unspecified atrial fibrillation; I25.10 Atherosclerotic heart disease of native coronary artery without angina pectoris; D64.9 Anemia, unspecified | CPT/HCPCS: 80053; 85025 ==

== ENCOUNTER → 2022-04-24 11:36 | Outpatient (BNVA) | payer MEDICARE, SELFPAY | PROVIDERS: PCP Family Medicine; Visit Provider Internal Medicine | DX: I73.9 Peripheral vascular disease, unspecified (principal); I11.0 Hypertensive heart disease with heart failure; I50.9 Heart failure, unspecified; E78.5 Hyperlipidemia, unspecified; I71.40 Abdominal aortic aneurysm, without rupture, unspecified; Z87.891 Personal history of nicotine dependence | CPT/HCPCS: 99214 ==

== ENCOUNTER 2022-05-04 20:25 | Emergency (ER) | payer MEDICARE, SELFPAY ==
--- NOTE | 2022-05-04 20:35 | ECG_ITS ---
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 Measurements Intervals [place] Rate: 80 P: -75 IA: 319 QRS: 19 QRSD: 93 T: 51 QT: 356 QTc: 412 Interpretive Statements ECTOPIC ATRIAL RHYTHM WITH FIRST DEGREE AV BLOCK Compared to ECG 02/16/2022 23:59:15 Ectopic atrial rhythm now present Sinus bradycardia no longer present Prolonged QT interval no longer present Electronically Signed On 05-05-2022 7:08:09 DIE CUTTER OPERATOR by Gamaliel Varela M.D. [id number]
[2022-05-04 20:41] VITALS: BP 117/82; PULSE 84; RESP 20; TEMP 36.7; O2SAT 99; BMI 28.3
[2022-05-04 20:46] LABS: Basophils # 0.1 10^3/uL (0.0-0.1); Basophils % 0.8 %; Eosinophils # 0.4 10^3/uL (0.0-0.8); Eosinophils % 5.1 %; Hematocrit 34.8 % (42.0-52.0); Hemoglobin 10.5 g/dL (11.7-16.6); Lymphocytes # 1.4 10^3/uL (0.8-4.8); Lymphocytes % 15.9 %; Mean Corpuscular HGB Conc 30.2 g/dL (30.0-36.0); Mean Corpuscular Hemoglobin 28.5 pg (28.0-34.0); Mean Corpuscular Volume 94.3 fl (80-94); Mean Platelet Volume 9.3 fL (7.4-10.4); Monocytes # 0.8 10^3/uL (0.2-0.9); Monocytes % 9.6 %; Neutrophils # 5.78 10^3/uL (1.8-7.7); Neutrophils % 68.2 %; Nucleated Red Blood Cells % 0 %; Platelet Count 289 10^3/cmm (130-400); Red Blood Count 3.69 10^6/uL (4.1-5.3); Red Cell Distribution Width 13.6 % (12.1-15.1); White Blood Count 8.5 10^3/uL (4.0-10.0)
[2022-05-04 21:07] LABS: Anion Gap 13.7 (5-19); Blood Urea Nitrogen 57 mg/dL (8-23); Calcium 9.3 mg/dL (8.5-10.5); Carbon Dioxide 24 mmol/L (22-29); Chloride 94 mmol/L (98-107); Glucose 93 mg/dL (65-115); Osmolality Calculated 278 mOsm/kg (285-295); Potassium 5.7 mmol/L (3.5-5.1); Sodium 126 mmol/L (136-145)
--- NOTE | 2022-05-04 21:19 | W.ED.GENADLT ---
HPI - General Adult General: Chief complaint: General Medical Stated complaint: elevated labs Time Seen by Provider: 05/04/22 21:00 Source: patient and EMS Mode of arrival: EMS Limitations: no limitations History of Present Illness: 71-year-old male with a history of chronic kidney disease he is not on dialysis states he had blood draw this morning for a checkup and was called and told to come to the hospital because the potassium was 6.5 he states he been feeling completely normal he denies any weakness denies any pain anywhere he has had no vomiting or diarrhea he still making urine. Associated symptoms: Deny chest pain, dyspnea, headache(s), nausea, rash or vomiting Review of Systems Const: Denies: fever(s), chills, body aches or change in appetite Eyes: Denies: blurry vision or eye discomfort ENMT: Denies: throat pain or dental pain Card: Denies: chest pain Resp: Denies: dyspnea GI: Denies: abdominal pain, nausea, vomiting or diarrhea : Denies: dysuria Musc: Denies: neck pain or back pain Skin/Breast: Denies: rash Neuro: Denies: headache(s) Psych: Denies: depression Riaz/Lymph: Denies: easy bruising All/Imm: Denies: urticaria PFSH ED PFSH: Medical History AAA (abdominal aortic aneurysm) BPH loc w urin obs/LUTS CHF (congestive heart failure) COPD (chronic obstructive pulmonary disease) Dyslipidemia HTN (hypertension) PAD (peripheral artery disease) Surgical History Hx of aorto-femoral bypass Hx of hand surgery Previous back surgery Family History Father Hypertension CAD (coronary artery disease) Myocardial infarction Stroke Mother Cancer Denies family history of Diabetes Clotting disorder Dementia Chronic kidney disease (CKD) Suicide Anesthesia complication Bleeding disorder Lung disease Social History Smoking and tobacco status: former smoker Quit status (tobacco): has quit using tobacco Year quit tobacco: 2012 Alcohol intake: current Alcohol intake frequency: holidays/special occasions only Lives independently: Yes Housing: House Marital status: Current occupational status: retired History of recent travel: No Physical Exam Const: COMMON NORMALS: no acute distress, patient oriented x3 and healthy appearing HENMT: COMMON NORMALS: normocephalic and atraumatic HEAD & SCALP: normocephalic and atraumatic Eye: COMMON NORMALS: Equal, round and reactive pupils present and EOMs intact bilaterally PUPIL: Yes Equal, round and reactive pupils present Neck/C-Spine: COMMON NORMALS: full ROM and supple Chest: COMMONS NORMALS: normal inspection of the chest and normal palpation of entire chest wall Resp: COMMON NORMALS: normal respiratory effort, No retractions, No use of accessory muscles and clear to auscultation bilaterally AUSCULTATION: clear to auscultation bilaterally Cardio: COMMON NORMALS: regular rate, regular rhythm and No murmurs present (Cardio) RATE: regular rate RHYTHM: regular rhythm GI: COMMON NORMALS: Normal to inspection, nondistended, normoactive bowel sounds present, Soft to palpation, non-tender and no masses PALPATION: Yes Soft to palpation Extremity: COMMON NORMALS: normal to inspection and full ROM Neuro: COMMON NORMALS: patient oriented x3, moves all extremities and no focal motor deficits Psych: COMMON NORMALS: mental status grossly normal, Normal thought process present and cooperative THOUGHT PROCESS: Normal thought process present Skin: COMMON NORMALS: no rashes or lesions noted and no wounds GENERAL SKIN EXAM: no rashes or lesions noted Course Vital Signs: Vital signs: Vital Signs Temperature 98.0 F 05/04/22 20:41 Pulse Rate 79 05/04/22 23:51 Respiratory Rate 16 05/04/22 23:51 Blood Pressure 110/74 05/04/22 23:51 Pulse Oximetry 96 05/04/22 23:51 Oxygen Delivery Me thod 05/04/22 20:41 Oxygen Flow Rate 4 05/04/22 20:41 MDM - General Adult Medical Decision Making Patient presents here with concerns for hyperkalemia is likely a hemolyzed specimen that has drawn as his potassium here is much less than redraw here is improved he still makes urine his creatinine is at his baseline he has no EKG changes he is to follow-up with PCP and return if worsening he is to decrease his potassium take med at home. Lab Data 05/04/22 20:40 05/04/22 20:40 Laboratory Results WBC 8.5 10^3/uL (4.0-10.0) 05/04/22 20:40 RBC 3.69 10^6/uL (4.1-5.3) L 05/04/22 20:40 Hgb 10.5 g/dL (11.7-16.6) L 05/04/22 20:40 Hct 34.8 % (42.0-52.0) L 05/04/22 20:40 MCV 94.3 fl (80-94) H 05/04/22 20:40 MCH 28.5 pg (28.0-34.0) 05/04/22 20:40 MCHC 30.2 g/dL (30.0-36.0) 05/04/22 20:40 RDW 13.6 % (12.1-15.1) 05/04/22 20:40 Plt Count 289 10^3/cmm (130-400) 05/04/22 20:40 MPV 9.3 fL (7.4-10.4) 05/04/22 20:40 Neut % (Auto) 68.2 % 05/04/22 20:40 Lymph % (Auto) 15.9 % 05/04/22 20:40 [place] % (Auto) 9.6 % 05/04/22 20:40 Eos % (Auto) 5.1 % 05/04/22 20:40 Baso % (Auto) 0.8 % 05/04/22 20:40 Neut # (Auto) 5.78 10^3/uL (1.8-7.7) 05/04/22 20:40 Lymph # (Auto) 1.4 10^3/uL (0.8-4.8) 05/04/22 20:40 [place] # (Auto) 0.8 10^3/uL (0.2-0.9) 05/04/22 20:40 Eos # (Auto) 0.4 10^3/uL (0.0-0.8) 05/04/22 20:40 Baso # (Auto) 0.1 10^3/uL (0.0-0.1) 05/04/22 20:40 Nucleated RBC % (auto) 0 % 05/04/22 20:40 Nucleated RBCs # 0.0 /100WBC 05/04/22 20:40 Sodium 132 mmol/L (136-145) L 05/04/22 22:44 Potassium 5.3 mmol/L (3.5-5.1) H 05/04/22 22:44 Chloride 98 mmol/L (98-107) 05/04/22 22:44 Carbon Dioxide 24 mmol/L (22-29) 05/04/22 22:44 Anion Gap 15.3 (5-19) 05/04/22 22:44 BUN 52 mg/dL (8-23) H 05/04/22 22:44 Creatinine 2.8 mg/dL (0.7-1.2) H 05/04/22 22:44 GFR Calculation Not Reportable 05/04/22 22:44 Glucose 49 mg/dL (65-115) L 05/04/22 22:44 Calculated Osmolality 285 mOsm/kg (285-295) 05/04/22 22:44 Calcium 9.5 mg/dL (8.5-10.5) 05/04/22 22:44 Discharge Plan Discharge Patient Disposition: Home Clinical Impression: CKD (chronic kidney disease), Hyperkalemia Condition: Stable Prescriptions: No Action tizanidine 4 mg capsule 4 mg PO Q8H PRN (Reason: Muscle Spasm) albuterol sulfate [Ventolin HFA] 90 mcg/actuation HFA aerosol inhaler 1 puff INHALATION Q4H PRN (Reason: Shortness Of Breath) Qty: 8.5 0RF atorvastatin 40 mg tablet 40 mg PO DAILY 90 Days Qty: 90 1RF Symbicort 160-4.5 mcg/actuation HFA aerosol inhaler 1 puff INHALATION BID Qty: 10.2 0RF buspirone 5 mg tablet 5 mg PO BID 90 Days Qty: 180 1RF Plavix 75 mg tablet 75 mg PO DAILY 90 Days Qty: 90 1RF Lasix 40 mg tablet 40 mg PO BID 90 Days Qty: 180 1RF gabapentin 300 mg capsule 300 mg PO DAILY 90 Days Qty: 90 1RF fluticasone propionate [Flonase Allergy Relief] 50 mcg/actuation spray,suspension 2 spray INTRANASAL DAILY PRN (Reason: Allergy Symptoms) Qty: 16 0RF Rx Instructions: administer into each nostril ipratropium-albuterol 0.5 mg-3 mg(2.5 mg base)/3 mL solution for nebulization 3 ml INHALATION Q6H PRN (Reason: Shortness Of Breath) Qty: 180 0RF lisinopril 20 mg tablet 20 mg PO DAILY 90 Days Qty: 90 1RF Magtab 84 mg tablet extended release 84 mg PO DAILY 90 Days Qty: 180 1RF metoprolol tartrate 50 mg tablet 50 mg PO BID 90 Days Qty: 180 1RF montelukast [Singulair] 10 mg tablet 10 mg PO DAILY 90 Days Qty: 90 1RF multivitamin Tablet 1 tab PO DAILY 90 Days Qty: 90 1RF pantoprazole 40 mg tablet,delayed release (DR/EC) 40 mg PO DAILY 90 Days Qty: 180 1RF Klor-Con M20 20 mEq tablet,ER particles/crystals 20 meq PO BID 90 Days Qty: 180 1RF tamsulosin 0.4 mg capsule 0.8 mg PO QDAY Qty: 30 12RF sucralfate 1 gram tablet 1 g PO Q12H 90 Days Qty: 180 1RF Hold Instructions: Home Medication placed on hold at Doctor's office Discharge Orders: Discharge ED (Routine); Ordered 05/04/22 Ordered By: David Jewell Referrals: Timi Roque MD [Primary Care Provider] - 1-3 days Discharge Diet: Advance as tolerated Discharge Activity: Resume usual activity Patient Instructions: Chronic Kidney Disease (ED), Hyperkalemia (ED) Coding Level of Care Code ED Link Trainer Operator for Selvin Weston
[2022-05-04] MEDS: sodium chloride 0.9% 500 ML 999 ML IV (21:22)
[2022-05-04] MEDS: insulin regular-human 100 units/1 mL 10 UNIT IVP (21:40)
[2022-05-04 23:09] LABS: Anion Gap 15.3 (5-19); Blood Urea Nitrogen 52 mg/dL (8-23); Calcium 9.5 mg/dL (8.5-10.5); Carbon Dioxide 24 mmol/L (22-29); Chloride 98 mmol/L (98-107); Glucose 49 mg/dL (65-115); Osmolality Calculated 285 mOsm/kg (285-295); Potassium 5.3 mmol/L (3.5-5.1); Sodium 132 mmol/L (136-145)
[2022-05-04 23:51] VITALS: BP 110/74; PULSE 79; RESP 16; O2SAT 96
== END 2022-05-04 23:52 | disposition home or self-care (01) ==
PROVIDERS: Nurse Practitioner Family; Emergency Provider Emergency Medicine; PCP Family Medicine
DX: E87.5 Hyperkalemia (principal); I13.0 Hypertensive heart and chronic kidney disease with heart failure and stage 1 through stage 4 chronic kidney disease, or unspecified chronic kidney disease; N18.9 Chronic kidney disease, unspecified; I50.9 Heart failure, unspecified; J44.9 Chronic obstructive pulmonary disease, unspecified; E78.5 Hyperlipidemia, unspecified; Z87.891 Personal history of nicotine dependence; Z79.02 Long term (current) use of antithrombotics/antiplatelets
CPT/HCPCS: 80048; 80053; 85025; 93005; 96361; 96374; 99284; J1815; J7040

== ENCOUNTER → 2022-05-27 11:50 | Outpatient (BNVA) | payer MEDICARE, SELFPAY | PROVIDERS: PCP Family Medicine; Visit Provider Family Medicine | DX: E87.5 Hyperkalemia (principal); N18.9 Chronic kidney disease, unspecified; R31.0 Gross hematuria; N20.1 Calculus of ureter; I50.9 Heart failure, unspecified; J44.9 Chronic obstructive pulmonary disease, unspecified; I48.91 Unspecified atrial fibrillation; I25.10 Atherosclerotic heart disease of native coronary artery without angina pectoris | CPT/HCPCS: 80048; 81000 ==

== ENCOUNTER → 2022-06-05 08:15 | Outpatient (BNVA) | payer MEDICARE, SELFPAY | PROVIDERS: PCP Family Medicine; Visit Provider Family Medicine | DX: N18.9 Chronic kidney disease, unspecified (principal) | CPT/HCPCS: 80048 ==

== ENCOUNTER → 2022-06-08 11:12 | Outpatient (BNVA) | payer MEDICARE, SELFPAY | PROVIDERS: PCP Family Medicine; Visit Provider Family Medicine | DX: J44.9 Chronic obstructive pulmonary disease, unspecified (principal); N18.9 Chronic kidney disease, unspecified; I10 Essential (primary) hypertension; E87.5 Hyperkalemia | CPT/HCPCS: 71046 ==

== ENCOUNTER 2022-07-07 12:06 | Outpatient (CLI) | payer MEDICARE, SELFPAY ==
--- NOTE | 2022-07-07 12:00 | US_ITS ---
WS: [id number] RENAL ULTRASOUND HISTORY: N18.9 - Chronic kidney disease, unspecified COMPARISON: 01/27/2022 TECHNIQUE: 2-D and color Doppler imaging of the kidney submitted. Right kidney: 10.4 cm x 5.5 cm x 6.1 cm. Cortex: 1.4 cm Normal size kidney. There are several small cortical cysts. The largest in the superior kidney with a maximum diameter of 1.2 cm. No solid mass. Left kidney: 11.3 cm x 5.1 cm x 5.4 cm. Cortex: 1.8 cm Normal size kidney. No obstruction. Exophytic complex cyst from the superior LEFT kidney measures 2.2 x 1.5 x 2.4 cm. Very slightly increased in size since the prior study. There are a few low-level ech oes present but this is probably a cyst. Also identified on a prior CT from 01/17/2021 with only mini mal change in size. Aorta: Normal. Urinary Bladder: Normal distention. US/US renal BI* [id number] IMPRESSION: 1. Normal size kidneys with no hydronephrosis. 2. Bilateral cystic masses within each kidney. The LEFT cyst is mildly complex with only minimal increase in size since 01/17/2021.
== END 2022-07-07 12:07 | disposition home or self-care (01) ==
LOC: RAD 12:07
PROVIDERS: PCP Family Medicine; Visit Provider Family Medicine
DX: N18.9 Chronic kidney disease, unspecified (principal)
CPT/HCPCS: 76770

== ENCOUNTER 2022-07-07 12:07 | Outpatient (CLI) | payer MEDICARE, SELFPAY ==
--- NOTE | 2022-07-07 14:00 | USCV_ITS ---
Jamie Davison Age: 71 Gender: M : 1950 Exam Date: 07/07/2022 13:09 Ordering Phys: Timi Roque MD Technologist: Wallace Kincaid [place] [facility] [place]: heart failure BP: 142 / 90 HR: 70 Rhythm: Other Technical Quality: Adequate MEASUREMENTS (Male / Female) Normal Values 2D ECHO LV Diastolic Diameter PLAX 4.4 cm 4.2 - 5.9 / 3.9 - 5.3 cm LV Systolic Diameter PLAX 3.0 cm IVS Diastolic Thickness 0.9 cm 0.6 - 1.0 / 0.6 - 0.9 cm IVS Systolic Thickness 0.9 cm LVPW Diastolic Thickness 1.2 cm 0.6 - 1.0 / 0.6 - 0.9 cm LVPW Systolic Thickness 1.7 cm LVOT Diameter 2.1 cm LV Ejection Fraction 2D Teich 59.5 % LV Ejection Fraction MOD 2C 62.4 % LV Ejection Fraction 2C AL 62.0 % LA Diameter 4.4 cm LA Width 4.0 cm LA Height 6.1 cm RA Width 3.0 cm RA Height 6.3 cm Aorta at Sinotubular Diameter 2.5 cm IVC Diameter 1.9 cm M-MODE Aortic Annulus Diameter 3.7 cm LA Ao Ratio MM 1.3 MV E Point Septal Separation 0.3 cm DOPPLER AV Peak Velocity 84.7 cm/s LVOT Peak Velocity 74.0 cm/s AV Area Cont Eq vti 3.2 cm squared AV Area Cont Eq pk 2.9 cm squared MV Peak Velocity 134.0 cm/s MV Area PHT 5.9 cm squared MV E' Velocity 51.0 cm/s Mitral E to MV E' Ratio 10.1 Mitral E to LV E' Lateral Ratio 8.9 Mitral E to LV E' Septal Ratio 11.8 TR Peak Velocity 323.3 cm/s TR Peak Gradient 41.8 mmHg TR Mean Velocity 260.0 cm/s TR Mean Gradient 28.3 mmHg TR Velocity Time Integral 103.6 cm Right Atrial Pressure 3.0 mmHg Pulmonary Artery Systolic Pressu 44.8 mmHg PV Peak Velocity 65.0 cm/s RV Acceleration Time 0.1 s RV Ejection Time 0.3 s RV AcT/ET 0.3 FINDINGS Left Ventricle Left ventricle is normal in size. LV systolic function is normal with EF of 55 to 60%. No regional wall motion abnormalities are seen. Right Ventricle Normal in size and function Right Atrium Normal in size Left Atrium Dilated Mitral Valve Structurally normal mitral valve. Mild mitral regurgitation. Aortic Valve Structurally normal aortic valve. No significant aortic stenosis. Tricuspid Valve Mild tricuspid regurgitation. RVSP is 45-50mmHg. This is consistent with moderate pulmonary hypertension Pulmonic Valve Not well-visualized. Pericardium Normal Aorta Normal in size IVC Appears to be normal CONCLUSIONS LV systolic function is normal with EF 55 to 60%. Left atrial dilation Mild mitral regurgitation Mild tricuspid regurgitation Moderate pulmonary hypertension Compared to prior echocardiogram from 01/2022, no significant changes are noted. Gamaliel Varela MD (Electronically Signed) Final Date: 08 July 2022 11:02 S
== END 2022-07-07 12:08 | disposition home or self-care (01) ==
LOC: RAD 12:07
PROVIDERS: PCP Family Medicine; Visit Provider Family Medicine
DX: I50.9 Heart failure, unspecified (principal); I34.0 Nonrheumatic mitral (valve) insufficiency; I07.1 Rheumatic tricuspid insufficiency; I27.20 Pulmonary hypertension, unspecified
CPT/HCPCS: 76770; 80053; 85025; 93306

== ENCOUNTER → 2022-10-23 10:46 | Outpatient (BNVA) | payer MEDICARE, SELFPAY | PROVIDERS: PCP Family Medicine; Visit Provider Internal Medicine | DX: I50.30 Unspecified diastolic (congestive) heart failure (principal); I10 Essential (primary) hypertension | CPT/HCPCS: 36415; 80048; 83880; 99214 ==

== ENCOUNTER → 2022-11-10 10:39 | Outpatient (BNVA) | payer MEDICARE, SELFPAY | PROVIDERS: PCP Family Medicine; Visit Provider Internal Medicine Nephrology | DX: Q61.9 Cystic kidney disease, unspecified (principal); N18.9 Chronic kidney disease, unspecified; Z79.899 Other long term (current) drug therapy | CPT/HCPCS: 80069; 81003; 82043; 82306; 82542 ==

== ENCOUNTER 2022-11-20 09:54 | Outpatient (CLI) | payer MEDICARE, SELFPAY ==
--- NOTE | 2022-11-20 10:11 | US_ITS ---
WS: [id number] RENAL ULTRASOUND HISTORY: STAGE 3A CHRONIC KIDNEY DZ COMPARISON: 07/07/2022 TECHNIQUE: 2-D and color Doppler imaging of the kidney submitted. Right kidney: 9.8 cm x 5.3 cm x 6.2 cm. Cortex: 1.1 cm Normal size kidney. No hydronephrosis. Mid cortical renal cyst measures 1.4 x 1.2 x 1.3 cm. No solid mass. Left kidney: 11.5 cm x 4.5 cm x 5.6 cm. Cortex: 1.5 cm Normal size kidney. No hydronephrosis. There is several small cysts within the LEFT kidney. The large st from the superior pole measures 2.6 x 1.9 x 2.3 cm. Aorta: Normal. Urinary Bladder: Normally distended bladder. Prostate gland is mildly enlarged and heterogeneous yves uring 4.0 x 4.6 x 3.2 cm. IMPRESSION: 1. No hydronephrosis or atrophy. 2. Bilateral renal cysts. No solid mass.
== END 2022-11-20 09:55 | disposition home or self-care (01) ==
PROVIDERS: PCP Family Medicine; Visit Provider Internal Medicine Nephrology
DX: N18.31 Chronic kidney disease, stage 3a (principal)
CPT/HCPCS: 76770

== ENCOUNTER → 2023-01-12 10:19 | Outpatient (BNVA) | payer MEDICARE, SELFPAY | PROVIDERS: PCP Family Medicine; Visit Provider Family Medicine | DX: R05.9 Cough, unspecified (principal); R31.0 Gross hematuria; N20.1 Calculus of ureter | CPT/HCPCS: 87400; 87426 ==

== ENCOUNTER → 2023-01-18 10:57 | Outpatient (BNVA) | payer MEDICARE, SELFPAY | PROVIDERS: PCP Family Medicine; Visit Provider Nurse Practitioner Family | DX: R05.9 Cough, unspecified (principal); I50.30 Unspecified diastolic (congestive) heart failure; J44.9 Chronic obstructive pulmonary disease, unspecified; R73.9 Hyperglycemia, unspecified; Z13.6 Encounter for screening for cardiovascular disorders; I10 Essential (primary) hypertension; Z87.898 Personal history of other specified conditions; Z79.899 Other long term (current) drug therapy | CPT/HCPCS: 80053; 80061; 81003; 83036; 83880; 84443; 85007; 85027 ==

== ENCOUNTER → 2023-02-02 08:19 | Outpatient (BNVA) | payer MEDICARE, SELFPAY | PROVIDERS: PCP Family Medicine; Visit Provider Nurse Practitioner Family | DX: N18.30 Chronic kidney disease, stage 3 unspecified (principal); Q61.9 Cystic kidney disease, unspecified | CPT/HCPCS: 80069; 81003; 82043 ==

== ENCOUNTER → 2023-02-23 10:37 | Outpatient (BNVA) | payer MEDICARE, SELFPAY | PROVIDERS: PCP Family Medicine; Visit Provider Nurse Practitioner Family | DX: N18.9 Chronic kidney disease, unspecified (principal) | CPT/HCPCS: 80069 ==

== ENCOUNTER 2023-03-11 09:40 | Outpatient (CLI) | payer MEDICARE, SELFPAY ==
--- NOTE | 2023-03-11 10:15 | CTR_ITS ---
PROCEDURE INFORMATION: Exam: CT Chest With Contrast; Diagnostic Exam date and time: 03/11/2023 10:12 AM Age: 72 years old Clinical indication: Abnormal radiologic exam of lung or chest; Patient HX: Abnormal findings of lung field, aortic aneurysm; Additional info: R91.8 - other nonspecific abnormal finding of lung field, patient has renal failure - under the care of vernon TECHNIQUE: Imaging protocol: Diagnostic computed tomography of the chest with contrast. Radiation optimization: All CT scans at this facility use at least one of these dose optimization techniques: automated exposure control; mA and/or kV adjustment per patient size (includes targeted exams where dose is matched to clinical indication); or iterative reconstruction. Contrast material: OMNI 350; Contrast volume: 95 ml; Contrast route: INTRAVENOUS (IV); REPORTING DATA: Count of CT and Cardiac NM exams in prior 12 months: This patient has received 0 known CTs and 0 known cardiac nuclear medicine studies in the 12 months prior to the current study. COMPARISON: CR XR chest 2V* [id number] 06/08/2022 12:10 PM RADIATION DOSE METRICS: Total DLP (mGy-cm): 438.92 FINDINGS: Lungs: There is moderate upper lung predominant centrilobular emphysema. There is mild dependent coarse reticular opacity in the left lower lobe associated with the asymmetrically elevated left hemidiaphragm consistent with subsegmental atelectasis. Pleural spaces: There is no pleural effusion or pneumothorax. Heart: Heart size is normal overall. There is asymmetric enlargement of the right ventricle and right atrium. There is no pericardial effusion. Coronary arteries: There is moderate coronary artery calcification. Lymph nodes: There is no mediastinal or hilar lymphadenopathy. Vasculature: There is a partially imaged saccular aneurysm of the suprarenal abdominal aorta measuring 4.6 x 4.0 cm. There is moderate aortic atherosclerotic disease. Visible portions of the visceral arteries are patent. Calcific plaque without significant stenosis at the great vessel origins. The ascending aorta is diffusely dilated measuring up to 4.7 cm. The aortic arch and descending aorta are of normal caliber. No aortic dissection. The central pulmonary arteries are unremarkable. No visible pulmonary embolism. Diaphragm: Small fat containing right posterior diaphragmatic hernia. There is moderate asymmetric elevation of the left hemidiaphragm. Bones/joints: Chronic ununited right posterolateral 9th rib fracture. Healed right posterior 10th and 11th rib fractures. Chronic fractures of the left posterior 9th through 12th ribs. Left 10th rib fracture is ununited. There is a chronic ununited fracture of the right coracoid process. There is a severe compression fracture of T6. There are moderate compression fractures of T7 and T8. There is marked thoracic kyphosis. The sternum is intact. The visible portions of the clavicles, scapulae, and proximal humeri are intact. Soft tissues: Bilateral gynecomastia. CT/CT chest w con* [id number] IMPRESSION: 1. Dilated ascending aorta measuring 4.7 cm. Recommend clinical assessment and follow-up. 2. Partially imaged 4.6 cm saccular aneurysm of the infrarenal abdominal aorta. Recommend correlation with prior imaging (not available currently). 3. Multiple chronic bilateral rib fractures. 4. Marked thoracic kyphosis and probably chronic thoracic compression fractures involving T6 through T8, grossly similar but poorly visualized on the prior radiograph of 06/08/2022. 5. Moderate centrilobular emphysema. 6. Incidental findings above. COMMENTS: In the absence of a history or active diagnosis of lung cancer, it is recommended that this patient with emphysema be evaluated for enrollment in a low dose CT lung cancer screening program.
[2023-03-11] MEDS: iohexol 350 mg/mL 500 mL Btl (per mL) IV (10:19)
== END 2023-03-11 09:41 | disposition home or self-care (01) ==
LOC: RAD 09:40
PROVIDERS: PCP Family Medicine; Visit Provider Nurse Practitioner Family
DX: R91.8 Other nonspecific abnormal finding of lung field (principal); I71.40 Abdominal aortic aneurysm, without rupture, unspecified; J43.2 Centrilobular emphysema; M40.294 Other kyphosis, thoracic region; M84.48XA Pathological fracture, other site, initial encounter for fracture
CPT/HCPCS: 71260; Q9967

== ENCOUNTER → 2023-04-27 09:44 | Outpatient (BNVA) | payer MEDICARE, SELFPAY | PROVIDERS: PCP Family Medicine; Visit Provider Nurse Practitioner Family | DX: I11.0 Hypertensive heart disease with heart failure (principal); I50.32 Chronic diastolic (congestive) heart failure; I73.9 Peripheral vascular disease, unspecified; I71.40 Abdominal aortic aneurysm, without rupture, unspecified; I48.0 Paroxysmal atrial fibrillation; I25.10 Atherosclerotic heart disease of native coronary artery without angina pectoris; Z87.891 Personal history of nicotine dependence | CPT/HCPCS: 99214 ==

== ENCOUNTER → 2023-05-17 12:43 | Outpatient (BNVA) | payer MEDICARE, SELFPAY | PROVIDERS: PCP Family Medicine; Referring Provider Nurse Practitioner Family; Visit Provider Internal Medicine Pulmonary Disease | DX: J43.2 Centrilobular emphysema (principal); Z12.2 Encounter for screening for malignant neoplasm of respiratory organs; Z87.891 Personal history of nicotine dependence | CPT/HCPCS: 99204 ==

== ENCOUNTER → 2023-07-23 11:24 | Outpatient (BNVA) | payer MEDICARE, SELFPAY | PROVIDERS: PCP Family Medicine; Visit Provider Nurse Practitioner Family | DX: I50.30 Unspecified diastolic (congestive) heart failure (principal); N18.9 Chronic kidney disease, unspecified; J44.9 Chronic obstructive pulmonary disease, unspecified; M19.072 Primary osteoarthritis, left ankle and foot; I10 Essential (primary) hypertension; E78.5 Hyperlipidemia, unspecified; I50.32 Chronic diastolic (congestive) heart failure; Z79.899 Other long term (current) drug therapy; I87.8 Other specified disorders of veins; J30.89 Other allergic rhinitis | CPT/HCPCS: 73610; 80053; 80061; 81003; 82306; 83036; 83880; 84443; 85025 ==

== ENCOUNTER 2023-07-24 08:45 | Inpatient (IN) | payer MEDICARE, SELFPAY ==
[2023-07-24] VITALS (29 sets, daily range): BP systolic 91–135; BP diastolic 73–106; PULSE 112–123; RESP 12–26; TEMP 36.6–36.8; O2SAT 81–100
--- NOTE | 2023-07-24 09:05 | XRR_ITS ---
PROCEDURE INFORMATION: Exam: XR Chest Exam date and time: 07/24/2023 9:14 AM Age: 72 years old Clinical indication: Shortness of breath TECHNIQUE: Imaging protocol: Radiologic exam of the chest. Views: 1 view. COMPARISON: CT chest w con* [id number] 03/11/2023 10:12 AM FINDINGS: Lungs: Mild left basilar atelectasis and/or scarring. Impression. No large focal consolidation to suggest overlying pneumonia. Pleural spaces: No large pleural effusion. No distinct pneumothorax. Heart/Mediastinum: Cardiomediastinal silhouette is midline and stable in size. Bones/joints: No acute osseous findings. XR/XR chest 1V [id number] IMPRESSION: No large focal consolidation to suggest overlying pneumonia.
--- NOTE | 2023-07-24 09:05 | ECG_ITS ---
[facility] Test Date: 2023-07-24 Pat Name: Jamie Davison Department: Room: Gender: Male Rack Loader: : 1950 Requested By: Dana Silva Order Number: [id number] Bob MD: Noel Mcclure M.D. Measurements Intervals [place]ester Rate: 121 P: 0 WV: 0 QRS: 11 QRSD: 93 T: 50 QT: 309 QTc: 440 Interpretive Statements ATRIAL FLUTTER/TACHYCARDIA WITH RAPID VENTRICULAR RESPONSE JUNCTIONAL ST DEPRESSION, CONSIDER NORMAL VARIANT [0.1+ mV JUNCTIONAL DEPRESSION] ABNORMAL RHYTHM ECG Compared to ECG 05/04/2022 20:35:38 ST (T wave) deviation now present Ectopic atrial rhythm no longer present First degree AV block no longer present Electronically Signed On 07-24-2023 19:32:24 CDT by Noel Mcclure M.D. [id number]
--- NOTE | 2023-07-24 09:06 | ED_ITS ---
HPI - SOB/Dyspnea 2 General: Chief Complaint: Shortness of Breath/Dyspnea Stated Complaint: mike, abnormal labs Time Seen by Provider: 07/24/23 08:55 History of Present Illness: HPI Narrative: 72-year-old man with history of congesti ve heart failure, chronic kidney disease, atrial fibrillation, hypertension, COPD and chronic hypoxemic respiratory failure on 4 L nasal cannula at all times who presents to the emergency room after labs were drawn at clinic yesterday secondary to him being more short of breath and having increased swelling. His proBNP was elevated. He says swelling in his legs was worse. His breathing is worse. He has orthopnea. He states has had a bit of a headache. He feels like his heart is racing. He has some chest discomfort and tightness. No altered mental status. No focal motor deficits. No nausea or vomiting. No abdominal pain. Review of Systems 2 Narrative: Constitutional symptoms: Negative except as documented in HPI. Skin symptoms: Negative except as documented in HPI. Eye symptoms: Negative except as documented in HPI. ENMT symptoms: Negative except as documented in HPI. Respiratory symptoms: Negative except as documented in HPI. Cardiovascular symptoms: Negative except as documented in HPI. Gastrointestinal symptoms: Negative except as documented in HPI. Genitourinary symptoms: Negative except as documented in HPI. Musculoskeletal symptoms: Negative except as documented in HPI. Neurologic symptoms: Negative except as documented in HPI. Psychiatric symptoms: Negative except as documented in HPI. Endocrine symptoms: Negative except as documented in HPI. PFSH ED 2 PFSH: Medical History (Updated 07/24/23 @ 10:24 by Dana Gonzalez MD) Environmental and seasonal allergies Enrolled in chronic care management PLEASE DO NOT REMOVE FROM ACTIVE Venous stasis Arthritis of ankle, left Emphysema lung Abnormality of lung on chest x-ray Encounter for screening for cardiovascular disorders History of abnormal breathing pattern BPH loc w urin obs/LUTS COPD (chronic obstructive pulmonary disease) AAA (abdominal aortic aneurysm) CHF (congestive heart failure) Dyslipidemia PAD (peripheral artery disease) HTN (hypertension) Surgical History Previous back surgery Hx of aorto-femoral bypass Hx of hand surgery Family History Father Hypertension CAD (coronary artery disease) Myocardial infarction Stroke Mother Cancer Denies family history of Diabetes Clotting disorder Dementia Chronic kidney disease (CKD) Suicide Anesthesia complication Bleeding disorder Lung disease Social History Smoking and tobacco/nicotine status: former use of tobacco/nicotine Quit status (tobacco/nicotine): has quit using Year quit tobacco: 2012 Former quit date comment: 1.5-2 ppd X 30 years Alcohol intake: current Alcohol intake frequency: few times a week Substance/Drug Use: never Lives independently: Yes Housing: House Marital status: Current occupational status: retired Physical Exam 2 Narrative: EXAM NARRATIVE: General: Alert, no acute distress. Skin: Warm, dry. Head: Normocephalic, atraumatic. Neck: Supple, trachea midline. Eye: Extraocular movements are intact. Ears, nose, mouth and throat: mucosa moist. Cardiovascular: Irregular and tachycardic, 2+ pitting edema, Normal peripheral perfusion. Respiratory: Coarse lung sounds and tachypnea with some increased work of breathing after transferring from wheelchair to bed, some mild scattered wheeze, breath sounds are equal, Symmetrical chest wall expansion. Gastrointestinal: Soft, Nontender, Non distended, Normal bowel sounds. Musculoskeletal: Normal ROM, no deformity. Neurological: Alert and oriented, No focal neurological deficit observed. Psychiatric: Cooperative, appropriate mood & affect. Course 2 Vital Signs: Vital signs: Vital Signs Temperature 98.3 F 07/24/23 08:51 Pulse Rate 122 H 07/24/23 08:51 Respiratory Rate 22 H 07/24/23 08:51 Blood Pressure 127/100 07/24/23 08:51 Pulse Oximetry 98 07/24/23 08:51 Oxygen Delivery Me thod Nasal Cannula 07/24/23 08:51 Oxygen Flow Rate 4 07/24/23 08:51 MDM - SOB/Dyspnea Medical Decision Making Differential diagnosis for patient with shortness of breath includes but is not limited to and based on the above HPI, review of systems and physical exam: Pneumonia. Bronchitis. Asthma or COPD with acute exacerbation. Acute coronary syndrome / CO. Pulmonary embolism. Anxiety. Congestive heart failure. Viral infections including influenza and Covid-19. Atrial fibrillation. Anxiety. Pleural effusion. Pneumothorax. Workup: Lab work, chest X-ray and EKG ordered to evaluate, rule in and rule out above pathologies Lab Review: Laboratory results were reviewed and interpreted by myself the emergency room physician. proBNP continues to elevate is 13,000 today. Cardiac markers are negative. Renal function is a little bit worse than usual at a creatinine of 1.5. EKG: Time 906 rate 121. Atrial fibrillation with rapid ventricular response, No ST-T changes, no ectopy, This was reviewed and interpreted by myself the ER physician 908. Chest x-ray: Cardiomegaly, mild early failure/pulmonary edema. This was reviewed and interpreted by myself the ER physician. I reviewed the patient's medical record. Reexamination: Patient is still tachycardic at the time of admission. I started him on some diltiazem. No altered mental status. Work of breathing is improved now that he is sitting still. Lab Data 07/24/23 09:14 07/24/23 09:14 Labs/Radiology: Radiology Impressions Chest X-Ray 07/24/23 09:05 IMPRESSION: No large focal consolidation to suggest overlying pneumonia. Laboratory Results WBC 7.23 10^3/uL (3.29-11.43) 07/24/23 09:14 RBC 3.68 10^6/uL (3.85-5.65) L 07/24/23 09:14 Hgb 11.20 g/dL (11.27-16.99) L 07/24/23 09:14 Hct 32.9 % (37-53) L 07/24/23 09:14 MCV 89.4 fl (82-101) 07/24/23 09:14 MCH 30.4 pg (27-33) 07/24/23 09:14 MCHC 34.0 g/dL (30-55) D 07/24/23 09:14 RDW 15.1 % (12.1-15.1) 07/24/23 09:14 Plt Count 206 10^3/cmm (157-399) 07/24/23 09:14 MPV 9.6 fL (7.4-10.4) 07/24/23 09:14 Neut % (Auto) 71.8 % 07/24/23 09:14 Lymph % (Auto) 10.4 % 07/24/23 09:14 [place] % (Auto) 14.1 % 07/24/23 09:14 Eos % (Auto) 2.9 % 07/24/23 09:14 Baso % (Auto) 0.4 % 07/24/23 09:14 Neut # (Auto) 5.19 10^3/uL (1.8-7.7) 07/24/23 09:14 Lymph # (Auto) 0.8 10^3/uL (0.8-4.8) 07/24/23 09:14 [place] # (Auto) 1.0 10^3/uL (0.2-0.9) H 07/24/23 09:14 Eos # (Auto) 0.2 10^3/uL (0.0-0.8) 07/24/23 09:14 Baso # (Auto) 0.0 10^3/uL (0.0-0.1) 07/24/23 09:14 Nucleated RBC % (auto) 0 % 07/24/23 09:14 Nucleated RBCs # 0.0 /100WBC 07/24/23 09:14 Sodium 131 mmol/L (136-145) L 07/24/23 09:14 Potassium 4.5 mmol/L (3.5-5.1) 07/24/23 09:14 Chloride 92 mmol/L (98-107) L 07/24/23 09:14 Carbon Dioxide 27 mmol/L (22-29) 07/24/23 09:14 Anion Gap 16.5 (5-19) 07/24/23 09:14 BUN 28 mg/dL (8-23) H 07/24/23 09:14 Creatinine 1.5 mg/dL (0.7-1.2) H 07/24/23 09:14 GFR Calculation Not Reportable 07/24/23 09:14 Glucose 109 mg/dL (65-115) 07/24/23 09:14 Calculated Osmolality 278 mOsm/kg (285-295) L 07/24/23 09:14 Lactic Acid 1.9 mmol/L (0.5-2.2) 07/24/23 09:14 Calcium 9.3 mg/dL (8.5-10.5) 07/24/23 09:14 Total Bilirubin 0.6 mg/dL (0.15-1.2) 07/24/23 09:14 AST 24 U/L (0-40) 07/24/23 09:14 ALT 16 U/L (0-41) 07/24/23 09:14 Alkaline Phosphatase 83 U/L (40-130) 07/24/23 09:14 Troponin T Baseline 28 ng/L (0-15) H 07/24/23 09:14 NT-Pro-B Natriuret Pep 61488 pg/mL (0-125) H 07/24/23 09:14 Total Protein 7.1 g/dL (6.6-8.7) 07/24/23 09:14 Albumin 4.0 g/dL (3.5-5.2) 07/24/23 09:14 Globulin 3.1 g/dL (1.3-4.6) 07/24/23 09:14 All radiology interpretation(s) finalized by discharge Other Data Assessment and plan: Acute exacerbation of congestive heart failure Atrial fibrillation with rapid ventricular response Chronic hypoxemic respiratory failure COPD Chronic kidney disease -80 mg IV Lasix for CHF. Increased swelling in his legs. Symptomatic. -10 mg diltiazem push and starting a drip, rate currently in the 120s. -Stable on 4 L nasal cannula. -No COPD symptoms. Minimal wheeze. No new hypoxemia. -Kidney function is a bit worse than usual. His creatinine is 1.5. Usually when he 21.1-1.3 -I discussed the patient with the hospitalist on-call who is admitting the patient. - Discussed findings and plan with patient. Answered any questions. - All laboratory values were reviewed and interpreted personally by myself, the ER physician - All imaging was reviewed and interpreted personally by myself, the ER physician. - Evaluation and treatment of this problem were appropriate in the emergency setting -I spent a total of >35 minutes of critical care time managing the patient, independent of any other practitioner. -The time involved in the performance of separately reportable procedures was not counted towards critical care time. Discharge Plan Discharge Patient Disposition: Admitted As Inpatient Clinical Impression: Acute exacerbation of CHF (congestive heart failure), COPD (chronic obstructive pulmonary disease), Chronic kidney disease (CKD), Atrial fibrillation with rapid ventricular response, Chronic hypoxic respiratory failure Condition: Stable Coding Level of Care Code ED Bracelet Former for Selvin Weston
[2023-07-24 09:28] LABS: Basophils % 0.4 %; Eosinophils # 0.2 10^3/uL (0.0-0.8); Eosinophils % 2.9 %; Hematocrit 32.9 % (37-53); Lymphocytes # 0.8 10^3/uL (0.8-4.8); Lymphocytes % 10.4 %; Mean Corpuscular Hemoglobin 30.4 pg (27-33); Mean Corpuscular Volume 89.4 fl (82-101); Mean Platelet Volume 9.6 fL (7.4-10.4); Monocytes % 14.1 %; Neutrophils # 5.19 10^3/uL (1.8-7.7); Neutrophils % 71.8 %; Nucleated Red Blood Cells % 0 %; Platelet Count 206 10^3/cmm (157-399); Red Blood Count 3.68 10^6/uL (3.85-5.65); Red Cell Distribution Width 15.1 % (12.1-15.1); White Blood Count 7.23 10^3/uL (3.29-11.43)
[2023-07-24] MEDS: FUROsemide 10 mg/mL SDV 10mL 80 MG IVP (09:30)
[2023-07-24 09:44] LABS: Troponin(5th) Baseline 28 ng/L (0-15)
[2023-07-24 09:47] LABS: Lactic Sepsis W/Reflex 1.9 mmol/L (0.5-2.2)
[2023-07-24 09:57] LABS: Alanine Aminotransferase 16 U/L (0-41); Alkaline Phosphatase 83 U/L (40-130); Anion Gap 16.5 (5-19); Aspartate Amino Transferase 24 U/L (0-40); Blood Urea Nitrogen 28 mg/dL (8-23); Calcium 9.3 mg/dL (8.5-10.5); Carbon Dioxide 27 mmol/L (22-29); Chloride 92 mmol/L (98-107); Globulin 3.1 g/dL (1.3-4.6); Glucose 109 mg/dL (65-115); NT Pro B Type Natriuretic Pept 13088 pg/mL (0-125); Osmolality Calculated 278 mOsm/kg (285-295); Potassium 4.5 mmol/L (3.5-5.1); Sodium 131 mmol/L (136-145); Total Bilirubin 0.6 mg/dL (0.15-1.2); Total Protein 7.1 g/dL (6.6-8.7)
[2023-07-24] MEDS: dilTIAZem 5 mg/mL SDV 5 mL 10 MG IVP (10:07)
[2023-07-24] MEDS: dilTIAZem 100 MG in sodium chloride 0.9% (add-van) 100 ML IV (10:08)
--- NOTE | 2023-07-24 11:05 | ECG_ITS ---
[facility] Test Date: 2023-07-24 Pat Name: Jamie Davison Department: Room: Gender: Male Nip Wrapper: : 1950 Requested By: Dana Silva Order Number: [id number] Bob MD: Noel Mcclure M.D. Measurements Intervals [place] Rate: 120 P: 0 [place]: 0 QRS: -29 QRSD: 118 T: 50 QT: 329 QTc: 466 Interpretive Statements ATRIAL FLUTTER/TACHYCARDIA WITH RAPID VENTRICULAR RESPONSE BORDERLINE LEFT AXIS DEVIATION [QRS AXIS < -20] MODERATE INTRAVENTRICULAR CONDUCTION DELAY [110+ ms QRS DURATION] ABNORMAL RHYTHM ECG Compared to ECG 07/24/2023 09:06:25 Intraventricular conduction delay now present ST (T wave) deviation no longer present Electronically Signed On 07-24-2023 20:00:11 CDT by Noel Mcclure M.D. [id number]
--- NOTE | 2023-07-24 11:36 | USR_ITS ---
PROCEDURE INFORMATION: Exam: US Duplex Lower Extremity Veins, Bilateral Exam date and time: 07/24/2023 6:07 PM Age: 72 years old Clinical indication: Edema, localized; Lower extremity, bilateral; Additional info: Swelling TECHNIQUE: Imaging protocol: Real-time duplex ultrasound of the bilateral extremities with 2-D guevara scale, color Doppler flow and spectral waveform analysis including responses to compression and other maneuvers (when performed) with image documentation. Complete exam focused on the lower extremity veins. COMPARISON: CT angio abd aorta runof [id number] 01/17/2021 10:29 AM FINDINGS: Right deep veins: Unremarkable. The common femoral, femoral, proximal profunda femoral, popliteal, posterior tibial and peroneal veins are patent without thrombus. Normal Doppler waveforms. Normal compressibility and/or augmentation response. Left deep veins: Unremarkable. The common femoral, femoral, proximal profunda femoral, popliteal, posterior tibial and peroneal veins are patent without thrombus. Normal Doppler waveforms. Normal compressibility and/or augmentation response. Superficial veins: Greater saphenous veins at the saphenofemoral junctions are patent bilaterally without thrombus. Soft tissues: Mild subcutaneous edema in the calves. US/[place] [id number] IMPRESSION: No sonographic evidence of deep venous thrombosis.
[2023-07-24 11:48] LABS: INR 1.01 (0.8-1.2)
[2023-07-24 11:56] LABS: C Reactive Protein 15.9 mg/L (0.0-4.9); Magnesium 1.5 mg/dL (1.7-2.3)
[2023-07-24 11:57] LABS: Alcohol Level < 10 mg/dL (0-10)
[2023-07-24 12:03] LABS: Procalcitonin 0.08 ng/mL (0-0.5)
[2023-07-24 12:09] LABS: Add Urine Microscopic? NO; Charge for UA Resulting for Rev
[2023-07-24 12:10] LABS: Blood Urine Neg (Negative); Glucose Urine UA Norm (Normal); Ketones Urine Negative (Negative); Protein Urine Neg (Negative); Urine Appearance Clear (CLEAR); Urine Color Straw (Yellow); pH Urine 7 (5-7)
[2023-07-24 12:11] LABS: Bilirubin Urine Neg (Negative); Leukocyte Esterase Urine Negative (Negative); Nitrate Urine Negative (Negative); Urobilinogen Urine Norm (Negative)
--- NOTE | 2023-07-24 12:14 | P.HP_ITS ---
Providers/Chief Complaint 2 Admitting Physician: Timi Roque MD Primary Care Provider: CARY Dent Chief Complaint: dr mckeon, abnormal labs History of Present Illness Jamie Davison is a 72 year old male with a past medical history of COPD, active smoker, history of alcoholism, drinks daily, history of CHF, history of CAD, peripheral vascular disease, history of GI bleed, history of gastric antral ulcer, not on anticoagulant therapy who presents to [facility] due to shortness of breath. Currently patient is in new onset A-fib with RVR, reports shortness of breath, chest pain, palpitations, lower extremity edema. He does report smoking, he does report drinking alcohol on a regular basis, no fevers, no chills, no cough. Typically the chest pain happens with palpitations and shortness of breath, he primarily ambulates with a wheeled walker, Review of Systems 2 Const: Denies: fever(s), chills or malaise Eyes: Denies: change in vision Card: Reports: edema; Denies: chest pain Resp: Reports: dyspnea and non-productive cough GI: Denies: abdominal pain, nausea or vomiting : Denies: flank pain or difficulty urinating Musc: Denies: back pain Skin/Breast: Reports: rash Neuro: Denies: headache(s) Endo: Denies: polyuria Medications/Allergies Home Medications Medication Instructions Recorded Confirmed Last Taken Type fluticasone propionate 50 2 spray intranasal DAILY PRN 05/01/22 07/24/23 Unknown Rx mcg/actuation nasal Allergy Symptoms #16 grams spray,suspension (Flonase Allergy Relief) gabapentin 300 mg capsule 300 mg PO DAILY 90 days #90 caps 05/01/22 07/24/23 07/24/23 Rx magnesium L-lactate 84 mg 84 mg PO DAILY 90 days #180 tabs 05/01/22 07/24/23 07/24/23 Rx tablet,extended release (Magtab) multivitamin 1 tab PO DAILY 90 days #90 tabs 05/01/22 07/24/23 07/24/23 Rx cyanocobalamin (vitamin B-12) 1,000 mcg PO DAILY 30 days #30 caps 08/27/22 07/24/23 07/24/23 Rx 1,000 mcg capsule furosemide 40 mg tablet (Lasix) 40 mg PO DAILY 90 days #180 tabs 08/27/22 07/24/23 07/24/23 Rx clopidogrel 75 mg tablet (Plavix) 75 mg PO DAILY 90 days #90 tabs 10/23/22 07/24/23 07/24/23 Rx montelukast 10 mg tablet 10 mg PO DAILY 90 days #90 tabs 05/07/23 07/24/23 07/24/23 Rx (Singulair) ipratropium 0.5 mg-albuterol 3 mg 3 ml inhalation Q6H PRN Shortness 05/26/23 07/24/23 Unknown Rx (2.5 mg base)/3 mL nebulization Of Breath #180 mL soln atorvastatin 40 mg tablet 40 mg PO DAILY 90 days #90 tabs 07/23/23 07/24/23 Unknown Rx cetirizine 10 mg capsule (All Day 10 mg PO DAILY PRN allergy 07/23/23 07/24/23 Unknown Rx Allergy (cetirizine)) symptoms 30 days #30 caps umeclidinium 62.5 mcg/actuation 1 inh inhalation DAILY #30 ea 07/23/23 07/24/23 Unknown Rx blister powder for inhalation (Incruse Ellipta) albuterol sulfate 90 mcg/actuation 1 puff inhalation Q4H PRN 07/24/23 07/24/23 Unknown History aerosol inhaler Shortness Of Breath Or Wheezing citalopram 10 mg tablet 10 mg PO DAILY 07/24/23 07/24/23 07/24/23 History dextromethorphan-guaifenesin 30 1 tab PO Q12H PRN Congestion 07/24/23 07/24/23 07/24/23 History mg-600 mg tablet extended [id number] hr (Mucinex DM) ibuprofen 200 mg capsule 400 mg PO Q6H PRN Pain 07/24/23 07/24/23 Unknown History metoprolol tartrate 50 mg tablet 50 mg PO BID 07/24/23 07/24/23 07/24/23 History tamsulosin 0.4 mg capsule 0.8 mg PO DAILY 07/24/23 07/24/23 07/24/23 History Allergies Allergy/AdvReac Type Severity Reaction Status Date / Time bupropion [From Wellbutrin] Allergy Mild ALGY-Hives Verified 07/23/23 10:32 insect venom Allergy ALGY-Swell Verified 07/23/23 10:32 Lip/Tongue/Throat PFSH Acute 2 PFSH: Medical History Environmental and seasonal allergies Enrolled in chronic care management PLEASE DO NOT REMOVE FROM ACTIVE Venous stasis Arthritis of ankle, left Emphysema lung Abnormality of lung on chest x-ray Encounter for screening for cardiovascular disorders History of abnormal breathing pattern BPH loc w urin obs/LUTS COPD (chronic obstructive pulmonary disease) AAA (abdominal aortic aneurysm) CHF (congestive heart failure) Dyslipidemia PAD (peripheral artery disease) HTN (hypertension) Surgical History Previous back surgery Hx of aorto-femoral bypass Hx of hand surgery Family History Father Hypertension CAD (coronary artery disease) Myocardial infarction Stroke Mother Cancer Denies family history of Diabetes Clotting disorder Dementia Chronic kidney disease (CKD) Suicide Anesthesia complication Bleeding disorder Lung disease Social History Smoking and tobacco/nicotine status: former use of tobacco/nicotine Quit status (tobacco/nicotine): has quit using Year quit tobacco: 2012 Former quit date comment: 1.5-2 ppd X 30 years Alcohol intake: current Alcohol intake frequency: few times a week Substance/Drug Use: never Lives independently: Yes Housing: House Marital status: Current occupational status: retired Vitals/I&O/Wt Last Vital Signs Temp 98.3 F 07/24/23 08:51 Pulse 121 H 07/24/23 12:00 Resp 17 07/24/23 12:00 BP 111/96 07/24/23 12:00 Pulse Ox 100 07/24/23 12:00 O2 Del Method Nasal Cannula 07/24/23 12:00 O2 Flow Rate 4 07/24/23 12:00 07/23/23 07/24/23 07/24/23 22:59 06:59 14:59 Intake Total 5 / 5 Balance 5 / 5 Physical Exam 2 Const: COMMON NORMALS: no acute distress and patient oriented x3 HENMT: COMMON NORMALS: normocephalic HEAD & SCALP: normocephalic Eye: COMMON NORMALS: Equal, round and reactive pupils present and EOMs intact bilaterally Neck/C-Spine: COMMON NORMALS: no JVD Lymph: LYMPHATIC: no lymphadenopathy noted Resp: COMMON NORMALS: normal respiratory effort, No retractions and No use of accessory muscles AUSCULTATION: crackles and wheezes Cardio: COMMON NORMALS: no JVD, regular rate, regular rhythm, S1 normal heart sound present and S2 normal heart sound present RATE: regular rate RHYTHM: regular rhythm HEART SOUNDS: S1 normal heart sound present and S2 normal heart sound present GI: COMMON NORMALS: Normal to inspection, nondistended, normoactive bowel sounds present, Soft to palpation and non-tender Extremity: COMMON NORMALS: no calf tenderness NARRATIVE EXTREMITY EXAM: 2+ edema OTHER: Has evidence of muscle wasting, protein calorie malnutrition, bilateral temporal muscle wasting, bilateral arms, shoulders muscle wasting Neuro: COMMON NORMALS: patient oriented x3, CN's II-XII intact bilaterally, moves all extremities and no focal motor deficits Psych: COMMON NORMALS: mental status grossly normal Data 07/24/23 09:14 07/24/23 09:14 A&P Assessment and plan (1) Acute exacerbation of CHF (congestive heart failure): (2) CAD (coronary artery disease): Qualifiers: Coronary Disease-Associated Artery/Lesion type: [place] artery [place] vs. transplanted heart: [place] heart Associated angina: without angina Qualified Code(s): I25.10 - Atherosclerotic heart disease of [place] coronary artery without angina pectoris (3) HTN (hypertension): Qualifiers: Hypertension type: primary hypertension Qualified Code(s): I10 - Essential (primary) hypertension (4) Diastolic CHF: (5) PAD (peripheral artery disease): (6) AAA (abdominal aortic aneurysm): Qualifiers: Abdominal aorta location: unspecified Presence of rupture: without rupture Qualified Code(s): I71.40 - Abdominal aortic aneurysm, without rupture, unspecified (7) Protein calorie malnutrition: (8) CKD (chronic kidney disease): (9) BPH loc w urin obs/LUTS: (10) Physical deconditioning: (11) Alcoholism: (12) Alcohol abuse with withdrawal: (13) Atrial fibrillation with rapid ventricular response: (14) Encounter for smoking cessation counseling: Plan A-fib with RVR ? Start amiodarone drip ? Will hold off on anticoagulant therapy, for now as patient has a history of GI bleeds, history of anemia requiring transfusions, history of gastric antral ulcer ? Replace magnesium 1.5 ? Check TSH Hypomagnesemia, replace IV Acute CHF exacerbation ? Has received 80 mg IV Lasix in the emergency room ? Continue 40 mg IV every 12 hours ? Place Ashley catheter ? Monitor urine output ? Monitor creatinine monitor potassium monitor respiratory status closely Alcoholism, concern for alcohol withdrawal ? CIWA protocol History of COPD, current smoker, smoking cessation counseling ? Currently not in exacerbation History of CKD, monitor History of hyperlipidemia, monitor History of peripheral vascular disease History of CAD *Continues, stroke troponins, telemetry monitoring continue Plavix neck send Protein calorie malnutrition, physical deconditioning With evidence of muscle wasting ? Likely sec to alcoholism, severe COPD, ? Protein shake twice daily, consult dietary, PT OT Full code ? Lovenox for DVT prophylaxis ? SCDs ? Attestations 2 Medical Necessity Statement*: Patient requires hospitalization, inpatient, greater than 2 midnights, for A-fib with RVR, acute CHF exacerbation, Diagnoses Acute exacerbation of CHF (congestive heart failure) I50.9 Coronary artery disease involving [place] coronary artery of [place] heart without angina pectoris I25.10 Coronary Disease-Associated Artery/Lesion type: [place] artery [place] vs. transplanted heart: [place] heart Associated angina: without angina Primary hypertension I10 Hypertension type: primary hypertension Diastolic CHF I50.30 PAD (peripheral artery disease) I73.9 Abdominal aortic aneurysm (AAA) without rupture, unspecified part I71.40 Abdominal aorta location: unspecified Presence of rupture: without rupture Protein calorie malnutrition E46 CKD (chronic kidney disease) N18.9 BPH loc w urin obs/LUTS N40.1 Physical deconditioning R53.81 Alcoholism F10.20 Alcohol abuse with withdrawal F10.139 Atrial fibrillation with rapid ventricular response I48.91 Encounter for smoking cessation counseling Z71.6
[2023-07-24 12:20] LABS: Amphetamines Screen Urine Negative (Negative); Barbiturates Screen Urine Negative (Negative); Benzodiazepines Screen Urine Negative (Negative); Cocaine Screen Urine Negative (Negative); Opiate Screen Urine Negative (Negative); PCP Screen Urine Negative (Negative); THC Screen Urine Negative (Negative)
[2023-07-24 12:26] LABS: ABG PCO2 48.3 mmHg (35-45); ABG PH Result 7.38 (7.35-7.45); Blood Gas Operator Identificat AMH; Blood Gas Sample Site Brachial, right; Blood Gas Sample Type Arterial; HCO3 ABG 28.7 mmol/L (22-26); Oxygen Device NC; PO2 ABG 73.7 mmHg (80.0-100.0); PO2 FiO2 Ratio Arterial Blood 0
[2023-07-24 12:41] LABS: Troponin 5 2HR 26.42 ng/L (0-15)
[2023-07-24 13:19] LABS: Troponin 5 2HR Delta -1.58 ABS# (0-10)
[2023-07-24 13:41] LABS: Chol HDL Ratio 1.68 mg/dL (1.0-5.00); Cholesterol 124 mg/dL (0-200); HDL Cholesterol 74 mg/dL (60-100); LDL Cholesterol Calculated 38 mg/dL (50-129); LDL HDL Ratio 0.51 RATIO (0.00-3.22); Triglycerides 61 mg/dL (0-150)
--- NOTE | 2023-07-24 13:41 | PC.PT ---
HR at rest 121 and above CI. Hold till AM 07/25/23 to see vitals normalize.
[2023-07-24] MEDS: pantoprazole 40 mg SDV IVP (13:59)
[2023-07-24] MEDS: enoxaparin 40 mg/0.4 mL Syringe SUBCUT (13:59)
[2023-07-24] MEDS: amiodarone 150 MG/100 ML PREMIX 400 MG IV (13:59)
[2023-07-24] MEDS: magnesium sulfate premix 2 GM/50 ML PIGGYBACK IV (14:00)
[2023-07-24] MEDS: ipratropium-albuterol 3 mL Neb INHALATION ×2 (14:49→20:27)
--- NOTE | 2023-07-24 15:05 | ECG_ITS ---
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 Measurements Intervals [place] Rate: 116 P: 0 [place]: 0 QRS: 35 QRSD: 117 T: 7 QT: 345 QTc: 480 Interpretive Statements ATRIAL FLUTTER/TACHYCARDIA WITH RAPID VENTRICULAR RESPONSE MODERATE INTRAVENTRICULAR CONDUCTION DELAY [110+ ms QRS DURATION] ABNORMAL RHYTHM ECG Compared to ECG 07/24/2023 12:00:54 No significant changes Electronically Signed On 07-24-2023 20:03:43 CDT by Noel Mcclure M.D. [email or web address] [id number]
[2023-07-24] MEDS: FUROsemide 10 mg/mL SDV 4mL 40 MG IVP (21:40)
[2023-07-25] VITALS (29 sets, daily range): BP systolic 89–127; BP diastolic 64–104; PULSE 109–119; RESP 10–30; TEMP 36.1; O2SAT 83–100; BMI 25.4
[2023-07-25] MEDS: pantoprazole 40 mg SDV IVP ×2 (02:28→13:41)
[2023-07-25 03:57] LABS: Basophils % 0.3 %; Eosinophils # 0.2 10^3/uL (0.0-0.8); Eosinophils % 3.7 %; Hematocrit 32.8 % (37-53); Lymphocytes # 0.7 10^3/uL (0.8-4.8); Lymphocytes % 11.6 %; Mean Corpuscular HGB Conc 31.4 g/dL (30-55); Mean Corpuscular Volume 95.6 fl (82-101); Mean Platelet Volume 9.9 fL (7.4-10.4); Monocytes # 1.2 10^3/uL (0.2-0.9); Monocytes % 20.2 %; Neutrophils # 3.75 10^3/uL (1.8-7.7); Neutrophils % 63.9 %; Nucleated Red Blood Cells % 0 %; Platelet Count 183 10^3/cmm (157-399); Red Blood Count 3.43 10^6/uL (3.85-5.65); Red Cell Distribution Width 15.2 % (12.1-15.1); White Blood Count 5.88 10^3/uL (3.29-11.43)
[2023-07-25 04:16] LABS: Anion Gap 17.9 (5-19); Blood Urea Nitrogen 32 mg/dL (8-23); Calcium 8.4 mg/dL (8.5-10.5); Carbon Dioxide 25 mmol/L (22-29); Chloride 95 mmol/L (98-107); Creatinine Clr Calc Pharmacy 50.6961; Glucose 117 mg/dL (65-115); Osmolality Calculated 286 mOsm/kg (285-295); Potassium 3.9 mmol/L (3.5-5.1); Sodium 134 mmol/L (136-145)
[2023-07-25 04:37] LABS: NT Pro B Type Natriuretic Pept 7606 pg/mL (0-125)
[2023-07-25] MEDS: ipratropium-albuterol 3 mL Neb INHALATION ×3 (08:23→19:59)
[2023-07-25] MEDS: FUROsemide 10 mg/mL SDV 4mL 40 MG IVP ×2 (08:42→20:44)
[2023-07-25] MEDS: tamsulosin 0.4 mg Capsule 0.800000000000000044 MG PO (08:43)
[2023-07-25] MEDS: metoprolol tartrate 50 mg Tablet PO ×2 (08:43→17:48)
[2023-07-25] MEDS: atorvastatin 40 mg Tablet PO (08:43)
[2023-07-25] MEDS: thiamine 100 mg Tablet PO (08:43)
[2023-07-25] MEDS: multivitamin therapeutic Tablet 1 TAB PO (08:43)
[2023-07-25] MEDS: magnesium lactate 84 mg Tablet PO (08:43)
[2023-07-25] MEDS: folic acid 1 mg Tablet PO (08:43)
[2023-07-25] MEDS: amiodarone 200 mg Tablet 400 MG PO ×2 (08:43→17:47)
[2023-07-25] MEDS: gabapentin 300 mg Capsule PO (08:43)
[2023-07-25] MEDS: citalopram 20 mg Tablet 10 MG PO (08:44)
[2023-07-25] MEDS: clopidogrel 75 mg Tablet PO (08:44)
[2023-07-25] MEDS: enoxaparin 40 mg/0.4 mL Syringe SUBCUT (13:41)
--- NOTE | 2023-07-25 15:19 | PM.PN ---
Subjective Subjective: Patient was seen this morning, he is alert and awake, following all commands, denies any tremors, denies feeling anxious, currently on 4 L, heart rates between 110s to 120s atrial fibrillation, remains on amiodarone drip, Vitals/I&O/Wt Last Vital Signs Temp 97.9 F 07/24/23 20:00 Pulse 118 H 07/25/23 14:00 Resp 22 H 07/25/23 13:45 BP 119/92 07/25/23 12:00 Pulse Ox 97 07/25/23 13:45 O2 Del Method Nasal Cannula 07/25/23 13:45 O2 Flow Rate 4 07/25/23 13:45 07/25/23 07/25/23 07/25/23 06:59 14:59 22:59 Intake Total 850 / 850 Output Total 1300 / 1700 1000 / 1000 Balance -1300 / -755 -150 / -150 Weight last 48 hrs Weight 87.543 kg Weight 87.543 kg Physical Exam Const: COMMON NORMALS: no acute distress and patient oriented x3 Resp: COMMON NORMALS: normal respiratory effort, No retractions and No use of accessory muscles AUSCULTATION: crackles Cardio: COMMON NORMALS: regular rate, regular rhythm, S1 normal heart sound present and S2 normal heart sound present RATE: regular rate RHYTHM: regular rhythm HEART SOUNDS: S1 normal heart sound present and S2 normal heart sound present GI: COMMON NORMALS: Normal to inspection, nondistended, normoactive bowel sounds present and non-tender Extremity: NARRATIVE EXTREMITY EXAM: 1+ pitting edema Neuro: COMMON NORMALS: patient oriented x3 Psych: COMMON NORMALS: mental status grossly normal Data 07/25/23 03:30 07/25/23 03:30 A&P Assessment and plan (1) Acute exacerbation of CHF (congestive heart failure): (2) CAD (coronary artery disease): Qualifiers: Coronary Disease-Associated Artery/Lesion type: [place] artery [place] vs. transplanted heart: [place] heart Associated angina: without angina Qualified Code(s): I25.10 - Atherosclerotic heart disease of [place] coronary artery without angina pectoris (3) HTN (hypertension): Qualifiers: Hypertension type: primary hypertension Qualified Code(s): I10 - Essential (primary) hypertension (4) Diastolic CHF: (5) PAD (peripheral artery disease): (6) AAA (abdominal aortic aneurysm): Qualifiers: Abdominal aorta location: unspecified Presence of rupture: without rupture Qualified Code(s): I71.40 - Abdominal aortic aneurysm, without rupture, unspecified (7) Protein calorie malnutrition: (8) CKD (chronic kidney disease): (9) BPH loc w urin obs/LUTS: (10) Physical deconditioning: (11) Alcoholism: (12) Alcohol abuse with withdrawal: (13) Atrial fibrillation with rapid ventricular response: (14) Encounter for smoking cessation counseling: Plan A-fib with RVR ? Currently on amiodarone drip, transition to p.o. amiodarone 400 mg twice daily ? Continue metoprolol 50 twice daily, ? If heart rates remain greater than 120 will add on Cardizem 30 every 6 ? Will hold off on anticoagulant therapy, for now as patient has a history of GI bleeds, history of anemia requiring transfusions, history of gastric antral ulcer ? Replace magnesium 1.5, replaced ? Check TSH, within normal limits Hypomagnesemia, replace IV Acute CHF exacerbation ? Has received 80 mg IV Lasix in the emergency room ? Continue 40 mg IV every 12 hours ? Place Ashley catheter ? Monitor urine output ? Monitor creatinine monitor potassium monitor respiratory status closely Alcoholism, concern for alcohol withdrawal ? CIIN protocol History of COPD, current smoker, smoking cessation counseling ? Currently not in exacerbation History of CKD, monitor History of hyperlipidemia, monitor History of peripheral vascular disease History of CAD *Continues, stroke troponins, telemetry monitoring continue Plavix Protein calorie malnutrition, physical deconditioning With evidence of muscle wasting ? Likely sec to alcoholism, severe COPD, ? Protein shake twice daily, consult dietary, PT OT Full code ? Lovenox for DVT prophylaxis ? SCDs ? Plan for today monitor heart rate, de-escalate amiodarone drip, diuresis via Lasix, monitor creatinine monitor urine output monitor respiratory status monitor heart rates Attestations Medical Necessity Statement*: patient requires hospitalization for A-fib with RVR, cHF exacerbation, alcohol withdrawl Diagnoses Acute exacerbation of CHF (congestive heart failure) I50.9 Coronary artery disease involving [place] coronary artery of [place] heart without angina pectoris I25.10 Coronary Disease-Associated Artery/Lesion type: [place] artery [place] vs. transplanted heart: [place] heart Associated angina: without angina Primary hypertension I10 Hypertension type: primary hypertension Diastolic CHF I50.30 PAD (peripheral artery disease) I73.9 Abdominal aortic aneurysm (AAA) without rupture, unspecified part I71.40 Abdominal aorta location: unspecified Presence of rupture: without rupture Protein calorie malnutrition E46 CKD (chronic kidney disease) N18.9 BPH loc w urin obs/LUTS N40.1 Physical deconditioning R53.81 Alcoholism F10.20 Alcohol abuse with withdrawal F10.139 Atrial fibrillation with rapid ventricular response I48.91 Encounter for smoking cessation counseling Z71.6
[2023-07-25] MEDS: dilTIAZem 30 mg Tablet PO ×2 (15:41→20:45)
[2023-07-26] VITALS (32 sets, daily range): BP systolic 82–124; BP diastolic 56–95; PULSE 61–117; RESP 13–25; TEMP 36–36.8; O2SAT 80–100
[2023-07-26] MEDS: pantoprazole 40 mg SDV IVP ×2 (01:10→12:45)
[2023-07-26] MEDS: dilTIAZem 30 mg Tablet PO ×2 (03:44→17:40)
[2023-07-26 04:43] LABS: Basophils % 0.5 %; Eosinophils # 0.3 10^3/uL (0.0-0.8); Eosinophils % 4.6 %; Hematocrit 31.7 % (37-53); Lymphocytes # 0.7 10^3/uL (0.8-4.8); Lymphocytes % 10.7 %; Mean Corpuscular HGB Conc 32.5 g/dL (30-55); Mean Corpuscular Hemoglobin 29.6 pg (27-33); Mean Corpuscular Volume 91.1 fl (82-101); Mean Platelet Volume 10.6 fL (7.4-10.4); Monocytes % 16.6 %; Neutrophils # 4.21 10^3/uL (1.8-7.7); Neutrophils % 67.4 %; Nucleated Red Blood Cells % 0 %; Platelet Count 243 10^3/cmm (157-399); Red Blood Count 3.48 10^6/uL (3.85-5.65); Red Cell Distribution Width 15.1 % (12.1-15.1); White Blood Count 6.25 10^3/uL (3.29-11.43)
[2023-07-26 05:06] LABS: Blood Urea Nitrogen 36 mg/dL (8-23); Calcium 8.4 mg/dL (8.5-10.5); Carbon Dioxide 28 mmol/L (22-29); Chloride 96 mmol/L (98-107); Creatinine Clr Calc Pharmacy 44.7318; Glucose 113 mg/dL (65-115); Osmolality Calculated 285 mOsm/kg (285-295); Sodium 133 mmol/L (136-145)
[2023-07-26 05:08] LABS: Anion Gap 14.8 (5-19); Potassium 5.8 mmol/L (3.5-5.1)
[2023-07-26] MEDS: ipratropium-albuterol 3 mL Neb INHALATION ×2 (08:20→13:30)
--- NOTE | 2023-07-26 09:00 | PC.NURSE ---
Dr Sharp notified of pt's BP of 98/79. Metoprolol held. approved all other meds to be administered after reviewing.
[2023-07-26] MEDS: folic acid 1 mg Tablet PO (09:07)
[2023-07-26] MEDS: gabapentin 300 mg Capsule PO (09:07)
[2023-07-26] MEDS: multivitamin therapeutic Tablet 1 TAB PO (09:07)
[2023-07-26] MEDS: tamsulosin 0.4 mg Capsule 0.800000000000000044 MG PO (09:07)
[2023-07-26] MEDS: clopidogrel 75 mg Tablet PO (09:07)
[2023-07-26] MEDS: thiamine 100 mg Tablet PO (09:07)
[2023-07-26] MEDS: magnesium lactate 84 mg Tablet PO (09:07)
[2023-07-26] MEDS: citalopram 20 mg Tablet 10 MG PO (09:08)
[2023-07-26] MEDS: amiodarone 200 mg Tablet 400 MG PO ×2 (09:08→17:40)
[2023-07-26] MEDS: atorvastatin 40 mg Tablet PO (09:08)
[2023-07-26] MEDS: digoxin 250 mcg/ml INJ 2 mL IVP (09:09)
[2023-07-26] MEDS: FUROsemide 10 mg/mL SDV 4mL 40 MG IVP (09:10)
[2023-07-26] MEDS: metoprolol tartrate 50 mg Tablet PO (09:13)
--- NOTE | 2023-07-26 09:30 | USCV_ITS ---
Davison Jamie Age: 72 Gender: M : 1950 Exam Date: 07/26/2023 15:05 Ordering Phys: Timi Roque MD Technologist: Exam Location: [facility] [place] Indication: sob cp BP: 83 / 56 HR: 76 Rhythm: Sinus Technical Quality: Adequate MEASUREMENTS (Male / Female) Normal Values 2D ECHO LV Diastolic Diameter PLAX 4.1 cm 4.2 - 5.9 / 3.9 - 5.3 cm IVS Diastolic Thickness 1.0 cm 0.6 - 1.0 / 0.6 - 0.9 cm IVS Systolic Thickness 1.2 cm LVPW Diastolic Thickness 1.1 cm 0.6 - 1.0 / 0.6 - 0.9 cm LVPW Systolic Thickness 1.5 cm LVOT Diameter 2.0 cm LV Ejection Fraction 2D Teich 64.5 % LV Ejection Fraction MOD 2C 67.1 % LV Ejection Fraction 2C AL 68.4 % LA Diameter 4.8 cm RA Systolic Volume 4C AL 73.7 ml RA Systolic Volume 4C MOD 70.1 ml Aorta at Sinotubular Diameter 3.6 cm M-MODE LA Ao Ratio MM 1.0 AV Cusp Separation MM 1.7 cm DOPPLER AV Peak Velocity 128.0 cm/s LVOT Peak Velocity 81.0 cm/s AV Area Cont Eq vti 2.7 cm squared AV Area Cont Eq pk 2.1 cm squared MV Peak Velocity 101.0 cm/s PV Peak Velocity 82.7 cm/s FINDINGS Left Ventricle Left ventricle is normal size. LV systolic function is normal with EF of 55 to 60%. No regional wall motion abnormalities are seen. Right Ventricle Normal in size and function Right Atrium Dilated Left Atrium Dilated Mitral Valve Structurally normal mitral valve. Mild mitral regurgitation. Aortic Valve Aortic valve is thickened. No significant stenosis or regurgitation. Tricuspid Valve Trace tricuspid regurgitation. Insufficient TR jet to calculate RVSP Pulmonic Valve Not well visualized Pericardium Normal Aorta Ascending aorta is mildly dilated IVC Normal in size CONCLUSIONS LV systolic function is normal with EF of 55 to 60% Biatrial dilation Mild mitral regurgitation Trace tricuspid regurgitation Ascending aorta is dilated Compared to prior echocardiogram from 2022, no significant changes are seen Gamaliel Varela MD (Electronically Signed) Final Date: 27 July 2023 10:45 S
--- NOTE | 2023-07-26 10:09 | PC.SOCIAL ---
IMM Update pg 2 of IMM updated and reviewed w/ patient. Copy provided and copy dated, initialed and placed in chart.
[2023-07-26] MEDS: enoxaparin 40 mg/0.4 mL Syringe SUBCUT (12:46)
--- NOTE | 2023-07-26 15:03 | P.PN_ITS ---
Subjective 2 Subjective: This morning patient was hypotensive with A-fib RVR We only give him metoprolol and amiodarone Held Cardizem Patient is not experiencing any chest pain shortness of breath confusion or lethargy Vitals/I&O/Wt Last Vital Signs Temp 98.3 F 07/26/23 09:30 Pulse 77 07/26/23 13:36 Resp 16 07/26/23 13:30 BP 82/63 07/26/23 12:00 Pulse Ox 97 07/26/23 13:30 O2 Del Method Nasal Cannula 07/26/23 13:30 O2 Flow Rate 4 07/25/23 20:03 FiO2 2 07/26/23 13:30 07/26/23 07/26/23 07/26/23 06:59 14:59 22:59 Intake Total 100 / 1500 180 / 180 Output Total 1300 / 2800 430 / 430 Balance -1200 / -1300 -250 / -250 Weight last 48 hrs Weight 87.543 kg Physical Exam 2 Narrative: Clinically looks dehydrated Awake and alert Currently on 2 L A-fib RVR Hypertensive No active chest pain shortness with confusion Pleasant cooperative Lower extremity no edema Abdomen soft Data 07/26/23 04:34 07/26/23 04:34 A&P Assessment and plan (1) Enrolled in chronic care management: (2) Alcohol cessation counseling: (3) Alcohol abuse: (4) Afib: Qualifiers: Atrial fibrillation type: paroxysmal Qualified Code(s): I48.0 - Paroxysmal atrial fibrillation (5) PAD (peripheral artery disease): (6) Vasculopathy: (7) Claudication: (8) Chronic anticoagulation: (9) Protein calorie malnutrition: (10) Acute kidney injury: (11) CKD (chronic kidney disease): (12) Hyperkalemia: (13) COPD (chronic obstructive pulmonary disease): Qualifiers: COPD type: emphysema Emphysema type: centrilobular Qualified Code(s): J43.2 - Centrilobular emphysema Plan A-fib RVR Continue metoprolol and amiodarone Held Cardizem secondary to low blood pressure I will start him on therapeutic Lovenox dose Hyperkalemia: Sample is hemolyzed, Hypertension: Held the diuretics, I will give him 250 mill bolus COPD without significant exacerbation Currently on 2 L Peripheral vascular disease no acute exacerbation no active sign of claudication or vascular ischemia changes Can be transferred out of ICU to [facility] Target heart rate below 110 on ambulation Plan to discharge in next 24 to 48 hours Alcohol abuse No active signs of withdrawal [facility] protocol on board Hypomagnesemia: Replenished Acute CHF exacerbation: I do believe patient is getting over diuresed with signs of dehydration Held Lasix today Chronic kidney disease without acute exacerbation Sarcopenia with protein calorie malnourishment Appreciate PT recommendations Attestations 2 Medical Necessity Statement*: Transfer out of ICU, possible discharge by tomorrow Diagnoses Enrolled in chronic care management Z78.9 Alcohol cessation counseling Z71.41 Alcohol abuse F10.10 Paroxysmal atrial fibrillation I48.0 Atrial fibrillation type: paroxysmal PAD (peripheral artery disease) I73.9 Vasculopathy I99.9 Claudication I73.9 Chronic anticoagulation Z79.01 Protein calorie malnutrition E46 Acute kidney injury N17.9 CKD (chronic kidney disease) N18.9 Hyperkalemia E87.5 Centrilobular emphysema J43.2 COPD type: emphysema Emphysema type: centrilobular
[2023-07-26] MEDS: sodium chloride 0.9% 250 ML IV (21:34)
[2023-07-27 00:54] VITALS: BP 98/65; PULSE 97; RESP 18; TEMP 37; O2SAT 94
[2023-07-27] MEDS: enoxaparin 40 mg/0.4 mL Syringe 90 MG SUBCUT (00:59)
[2023-07-27 05:18] VITALS: BP 110/73; PULSE 90; RESP 18; TEMP 37; O2SAT 91
[2023-07-27 05:22] LABS: Basophils % 0.6 %; Eosinophils # 0.3 10^3/uL (0.0-0.8); Eosinophils % 3.8 %; Hematocrit 33.2 % (37-53); Mean Corpuscular Hemoglobin 29.5 pg (27-33); Mean Corpuscular Volume 95.1 fl (82-101); Mean Platelet Volume 9.5 fL (7.4-10.4); Monocytes # 1.1 10^3/uL (0.2-0.9); Neutrophils % 65.2 %; Nucleated Red Blood Cells % 0 %; Platelet Count 262 10^3/cmm (157-399); Red Blood Count 3.49 10^6/uL (3.85-5.65); Red Cell Distribution Width 15.1 % (12.1-15.1); White Blood Count 7.06 10^3/uL (3.29-11.43)
[2023-07-27 05:38] LABS: Blood Urea Nitrogen 44 mg/dL (8-23); Calcium 9.3 mg/dL (8.5-10.5); Carbon Dioxide 31 mmol/L (22-29); Chloride 93 mmol/L (98-107); Creatinine Clr Calc Pharmacy 40.0594; Glucose 116 mg/dL (65-115); Osmolality Calculated 290 mOsm/kg (285-295); Sodium 134 mmol/L (136-145)
[2023-07-27 05:44] LABS: Anion Gap 14.4 (5-19); Potassium 4.4 mmol/L (3.5-5.1)
--- NOTE | 2023-07-27 06:47 | PM.DCS ---
Discharge Providers Date of Admission: 07/24/23 12:03 Date of Discharge: July 27, 2023 Attending Provider at Admission: Timi Roque MD Attending Provider at Discharge: Corinne Sharp MD Primary Care Provider: CARY Dent Diagnoses at Discharge Discharge Diagnosis (1) Enrolled in chronic care management: Status: Chronic Permanent problem details: PLEASE DO NOT REMOVE FROM ACTIVE (2) Alcohol cessation counseling: Status: Acute (3) Alcohol abuse: Status: Acute (4) Afib: Status: Acute Qualifiers: Atrial fibrillation type: paroxysmal Qualified Code(s): I48.0 - Paroxysmal atrial fibrillation (5) PAD (peripheral artery disease): Status: Acute (6) Vasculopathy: Status: Acute (7) Claudication: Status: Acute (8) Chronic anticoagulation: Status: Acute (9) Protein calorie malnutrition: Status: Acute (10) Acute kidney injury: Status: Acute (11) CKD (chronic kidney disease): Status: Chronic (12) Hyperkalemia: Status: Acute (13) COPD (chronic obstructive pulmonary disease): Status: Chronic Qualifiers: COPD type: emphysema Emphysema type: centrilobular Qualified Code(s): J43.2 - Centrilobular emphysema Reason for Visit Reason for Visit: dr mckeon, abnormal labs Hospital Course Hospital Course 72-year-old male who presented to hospital with chief complaint of palpitations, he was diagnosed with A-fib RVR and diastolic CHF exacerbation. He was diuresed which dropped his blood pressure, a small 250 mill bolus was given along his AV blanka blocking agent that improved his blood pressure volume overloaded state he will need diuretics at the time of discharge, he does have chronic kidney disease he will continue his Plavix along amiodarone and AV blanka blocking agents. Has been added as well. Would avoid digoxin at the time of discharge secondary to chronic kidney disease. Patient did not show any signs of alcohol withdrawal he was given thiamine and folic acid for hospitalization. Previous echo revealed preserved ejection fraction. He does have COPD and uses oxygen on as-needed basis. Patient is not on anticoagulating agent because of history of GI bleed Physical Exam Narrative: Pleasant cooperative A-fib without RVR Nonfocal neuroexam GCS 15 Signs of fluid overload improving Discharge Data Studies Completed and Pending Completed Studies During Hospitalization Category Date Time Status XR chest 1V [id number] Stat Exams 07/24/23 09:05 [place] [id number] Stat Ultrasound 07/24/23 11:36 Completed Pending at discharge Category Date Time Status CV. echo complete* [id number] Stat Ultrasound 07/26/23 09:30 Taken Radiology Impressions Chest X-Ray 07/24/23 09:05 IMPRESSION: No large focal consolidation to suggest overlying pneumonia. Venous Duplex 07/24/23 11:36 IMPRESSION: No sonographic evidence of deep venous thrombosis. Laboratory Results WBC 7.06 10^3/uL (3.29-11.43) 07/27/23 04:54 RBC 3.49 10^6/uL (3.85-5.65) L 07/27/23 04:54 Hgb 10.30 g/dL (11.27-16.99) L 07/27/23 04:54 Hct 33.2 % (37-53) L 07/27/23 04:54 MCV 95.1 fl (82-101) 07/27/23 04:54 MCH 29.5 pg (27-33) 07/27/23 04:54 MCHC 31.0 g/dL (30-55) 07/27/23 04:54 RDW 15.1 % (12.1-15.1) 07/27/23 04:54 Plt Count 262 10^3/cmm (157-399) 07/27/23 04:54 MPV 9.5 fL (7.4-10.4) 07/27/23 04:54 Neut % (Auto) 65.2 % 07/27/23 04:54 Lymph % (Auto) 14.0 % 07/27/23 04:54 [place] % (Auto) 16.0 % 07/27/23 04:54 Eos % (Auto) 3.8 % 07/27/23 04:54 Baso % (Auto) 0.6 % 07/27/23 04:54 Neut # (Auto) 4.60 10^3/uL (1.8-7.7) 07/27/23 04:54 Lymph # (Auto) 1.0 10^3/uL (0.8-4.8) 07/27/23 04:54 [place] # (Auto) 1.1 10^3/uL (0.2-0.9) H 07/27/23 04:54 Eos # (Auto) 0.3 10^3/uL (0.0-0.8) 07/27/23 04:54 Baso # (Auto) 0.0 10^3/uL (0.0-0.1) 07/27/23 04:54 Nucleated RBC % (auto) 0 % 07/27/23 04:54 Nucleated RBCs # 0.0 /100WBC 07/27/23 04:54 PT 13.60 SECONDS (12.1-14.9) 07/24/23 09:14 INR 1.01 (0.8-1.2) 07/24/23 09:14 Specimen Type Arterial 07/24/23 12:15 Sample Site Brachial, right 07/24/23 12:15 ABG pH 7.38 (7.35-7.45) 07/24/23 12:15 ABG pCO2 48.3 mmHg (35-45) H 07/24/23 12:15 ABG pO2 73.7 mmHg (80.0-100.0) L 07/24/23 12:15 ABG PO2/FiO2 Ratio 0 07/24/23 12:15 ABG HCO3 28.7 mmol/L (22-26) H 07/24/23 12:15 ABG Base Excess 3.0 mmol/L (-2.0-2.0) H 07/24/23 12:15 Alberto Test N/a 07/24/23 12:15 Hematocrit 34.0 % (42-52) L 07/24/23 12:15 O2 Delivery Device Nc 07/24/23 12:15 O2 Liters/Min 4.0 % 07/24/23 12:15 FiO2 36.0 % 07/24/23 12:15 Development Director ID Amh 07/24/23 12:15 Sodium 134 mmol/L (136-145) L 07/27/23 04:54 Potassium 4.4 mmol/L (3.5-5.1) 07/27/23 04:54 Chloride 93 mmol/L (98-107) L 07/27/23 04:54 Carbon Dioxide 31 mmol/L (22-29) H 07/27/23 04:54 Anion Gap 14.4 (5-19) 07/27/23 04:54 BUN 44 mg/dL (8-23) H 07/27/23 04:54 Creatinine 2.0 mg/dL (0.7-1.2) H 07/27/23 04:54 GFR Calculation Not Reportable 07/27/23 04:54 Glucose 116 mg/dL (65-115) H 07/27/23 04:54 Calculated Osmolality 290 mOsm/kg (285-295) 07/27/23 04:54 Lactic Acid 1.9 mmol/L (0.5-2.2) 07/24/23 09:14 Calcium 9.3 mg/dL (8.5-10.5) 07/27/23 04:54 Magnesium 1.5 mg/dL (1.7-2.3) L 07/24/23 09:14 Total Bilirubin 0.6 mg/dL (0.15-1.2) 07/24/23 09:14 AST 24 U/L (0-40) 07/24/23 09:14 ALT 16 U/L (0-41) 07/24/23 09:14 Alkaline Phosphatase 83 U/L (40-130) 07/24/23 09:14 Troponin T Baseline 28 ng/L (0-15) H 07/24/23 09:14 Troponin T 120 Minute 26.42 ng/L (0-15) H 07/24/23 11:39 Delta Troponin T -1.58 ABS# (0-10) L 07/24/23 11:39 Troponin T Hi Sens 6Hr 29.20 ng/L (0-15) H 07/24/23 17:20 Troponin T Hi Sens 6Hr Delta 1.20 ng/L (0-12) 07/24/23 17:20 C-Reactive Protein 15.9 mg/L (0.0-4.9) H 07/24/23 09:14 NT-Pro-B Natriuret Pep 7606 pg/mL (0-125) H 07/25/23 03:30 Total Protein 7.1 g/dL (6.6-8.7) 07/24/23 09:14 Albumin 4.0 g/dL (3.5-5.2) 07/24/23 09:14 Globulin 3.1 g/dL (1.3-4.6) 07/24/23 09:14 Triglycerides 61 mg/dL (0-150) 07/24/23 11:39 Cholesterol 124 mg/dL (0-200) 07/24/23 11:39 LDL Cholesterol, Calc 38 mg/dL (50-129) L 07/24/23 11:39 HDL Cholesterol 74 mg/dL (60-100) 07/24/23 11:39 LDL/HDL Ratio 0.51 RATIO (0.00-3.22) 07/24/23 11:39 Cholesterol/HDL Ratio 1.68 mg/dL (1.0-5.00) 07/24/23 11:39 Procalcitonin 0.08 ng/mL (0-0.5) 07/24/23 09:14 Urine Color Straw (Yellow) 07/24/23 11:57 Urine Appearance Clear (CLEAR) 07/24/23 11:57 Urine pH 7 (5-7) 07/24/23 11:57 Ur Specific [place] 1.000 (1.005-1.030) L 07/24/23 11:57 Urine Protein Neg (Negative) 07/24/23 11:57 Urine Glucose (UA) Norm (Normal) 07/24/23 11:57 Urine Ketones Negative (Negative) 07/24/23 11:57 Urine Blood Neg (Negative) 07/24/23 11:57 Urine Nitrate Negative (Negative) 07/24/23 11:57 Urine Bilirubin Neg (Negative) 07/24/23 11:57 Urine Urobilinogen Norm mg/dL (Negative) 07/24/23 11:57 Ur Leukocyte Esterase Negative (Negative) 07/24/23 11:57 Urine Opiates Screen Negative ng/mL (Negative) 07/24/23 11:57 Ur Barbiturates Screen Negative ng/mL (Negative) 07/24/23 11:57 Ur Phencyclidine Scrn Negative ng/mL (Negative) 07/24/23 11:57 Ur Amphetamines Screen Negative ng/mL (Negative) 07/24/23 11:57 U Benzodiazepines Scrn Negative ng/mL (Negative) 07/24/23 11:57 Urine Cocaine Screen Negative ng/mL (Negative) 07/24/23 11:57 U Marijuana (THC) Screen Negative ng/mL (Negative) 07/24/23 11:57 Ethyl Alcohol < 10 mg/dL (0-10) 07/24/23 09:14 Vitals Last Vital Signs Temp 98.6 F 04/30/24 05:18 Pulse 90 07/27/23 05:18 Resp 18 07/27/23 05:18 BP 110/73 07/27/23 05:18 Pulse Ox 91 07/27/23 05:18 O2 Del Method Nasal Cannula 07/27/23 05:18 O2 Flow Rate 4 07/25/23 20:03 FiO2 2 07/26/23 13:30 Discharge Plan Discharge Patient Disposition: Home Condition: Stable Prescriptions: New thiamine mononitrate (vit B1) [Vitamin B-1 (mononitrate)] 100 mg Tablet 100 mg PO DAILY Qty: 30 0RF folic acid 1 mg Tablet 1 mg PO DAILY Qty: 30 0RF amiodarone [Pacerone] 200 mg Tablet 400 mg PO DAILY Qty: 90 3RF Continued gabapentin 300 mg capsule 300 mg PO DAILY 90 Days Qty: 90 1RF fluticasone propionate [Flonase Allergy Relief] 50 mcg/actuation spray,suspension 2 spray INTRANASAL DAILY PRN (Reason: Allergy Symptoms) Qty: 16 0RF Rx Instructions: administer into each nostril Magtab 84 mg tablet extended release 84 mg PO DAILY 90 Days Qty: 180 1RF multivitamin Tablet 1 tab PO DAILY 90 Days Qty: 90 1RF atorvastatin 40 mg tablet 40 mg PO DAILY 90 Days Qty: 90 1RF Incruse Ellipta 62.5 mcg/actuation blister with device 1 inh inhalation DAILY Qty: 30 6RF All Day Allergy (cetirizine) 10 mg capsule 10 mg PO DAILY PRN (Reason: allergy symptoms) 30 Days Qty: 30 2RF Lasix 40 mg tablet 40 mg PO DAILY 90 Days Qty: 180 1RF Hold Instructions: Home Medication placed on hold at Doctor's office cyanocobalamin (vitamin B-12) 1,000 mcg capsule 1,000 mcg PO DAILY 30 Days Qty: 30 0RF Plavix 75 mg tablet 75 mg PO DAILY 90 Days Qty: 90 1RF montelukast [Singulair] 10 mg tablet 10 mg PO DAILY 90 Days Qty: 90 1RF ipratropium-albuterol 0.5 mg-3 mg(2.5 mg base)/3 mL solution for nebulization 3 ml INHALATION Q6H PRN (Reason: Shortness Of Breath) Qty: 180 3RF Mucinex DM 30-600 mg Tablet Extended Release 12 Hr 1 tab PO Q12H PRN (Reason: Congestion) citalopram 10 mg tablet 10 mg PO DAILY tamsulosin 0.4 mg capsule 0.8 mg PO DAILY metoprolol tartrate 50 mg tablet 50 mg PO BID albuterol sulfate 90 mcg/actuation HFA aerosol inhaler 1 puff inhalation Q4H PRN (Reason: Shortness Of Breath Or Wheezing) Discontinued ibuprofen 200 mg Capsule 400 mg PO Q6H PRN (Reason: Pain) Discharge Orders: Discharge Order (Routine); Ordered 07/27/23 Ordered By: Corinne Sharp Referrals: FELIPE Hector, CARY [Primary Care Provider] - Patient Instructions: Opioid Safety Discharge Attestations Time Spent in Discharge Care*: greater than 30 min Quality Metrics Clinical Quality Measures [ No reported AMI, CVA or VTE this stay] Coding Level of Care Code Acute Code for Chg Fwd Diagnoses Enrolled in chronic care management Z78.9 Alcohol cessation counseling Z71.41 Alcohol abuse F10.10 Paroxysmal atrial fibrillation I48.0 Atrial fibrillation type: paroxysmal PAD (peripheral artery disease) I73.9 Vasculopathy I99.9 Claudication I73.9 Chronic anticoagulation Z79.01 Protein calorie malnutrition E46 Acute kidney injury N17.9 CKD (chronic kidney disease) N18.9 Hyperkalemia E87.5 Centrilobular emphysema J43.2 COPD type: emphysema Emphysema type: centrilobular
[2023-07-27 07:50] VITALS: PULSE 75; RESP 16; O2SAT 92
[2023-07-27] MEDS: ipratropium-albuterol 3 mL Neb INHALATION (07:50)
[2023-07-27 08:00] VITALS: BP 97/59; PULSE 71; RESP 16; TEMP 36.4; O2SAT 91
[2023-07-27] MEDS: amiodarone 200 mg Tablet 400 MG PO (08:54)
[2023-07-27] MEDS: folic acid 1 mg Tablet PO (08:54)
[2023-07-27] MEDS: tamsulosin 0.4 mg Capsule 0.800000000000000044 MG PO (08:54)
[2023-07-27] MEDS: citalopram 20 mg Tablet 10 MG PO (08:54)
[2023-07-27] MEDS: clopidogrel 75 mg Tablet PO (08:55)
[2023-07-27] MEDS: thiamine 100 mg Tablet PO (08:55)
[2023-07-27] MEDS: atorvastatin 40 mg Tablet PO (08:55)
[2023-07-27] MEDS: multivitamin therapeutic Tablet 1 TAB PO (08:55)
[2023-07-27] MEDS: magnesium lactate 84 mg Tablet PO (08:55)
[2023-07-27] MEDS: gabapentin 300 mg Capsule PO (08:55)
--- NOTE | 2023-07-27 09:08 | PC.NURSE ---
Patient's blood pressure this morning was 97/59. Metoprolol was held and physician was notified.
--- NOTE | 2023-07-27 09:22 | PC.CHAP ---
Pastoral Care Encounter/Spiritual Assessment Type of Contact [] Declined compounding assistant visit [] Patient/Family/Request visit [] Outpatient visit [] Follow-up visit [] Physician referral [] Code/Alert [x] Routine visit [] Staff referral [] Actively dying [] Patient sleeping [] Family support [] [] Out of room [] Palliative care [] [] Receiving care in room [] Pre-surgical visit [] Trauma [] Long length of stay [] ICU visit [] Other: Relational/Emotional Strength [x] Patient feels connected with others/family/visitors/staff [] Distress [] Loneliness/isolation [] Abandonment Spirituality of Patient [x] Person of Karlene [] Attends Buddhism of their Karlene [x] Believes in Prayer [] Reads Bible or Taoist materials [] There are Spiritual issues to be addressed Cooking Show Host Interventions [x] Prayer [] Active listening [] Non-anxious presence [x] Spiritual/emotional support [] Crisis/trauma care [] Spiritual counseling [] Bereavement support [] Provided bereavement packet [] Provided Bible/devotional materials [] Provided toy/stuffed animal, coloring book to patient or family member [] Provided Communion [] Anointing/[place] [] Salvation [x] Completed spiritual assessment [] Other: Impact on Illness or Injury [] Angry [] Fearful [] Anxious [] Often cries [] Exhaustion [] Unable to work [] Unable to attend faith [] Unable to walk/stand [] Unable to read [] Unable to drive [] Unable to eat/drink [] Unable to sleep [] Unable to be with family [] Patient intubated [] Other: Summary Time spent with patient 5 min
[2023-07-27] MEDS: sodium chloride 0.9% 250 ML IV (10:38)
[2023-07-27 11:10] VITALS: BP 105/54; PULSE 79; RESP 16; TEMP 36.7; O2SAT 94
[2023-07-27] MEDS: enoxaparin 100 mg/mL Syringe 90 MG SUBCUT (12:16)
== END 2023-07-27 13:00 | disposition home or self-care (01) | DRG 308 ==
LOC: ER 10:24 → ICU 12:04 → MEDSURG 07-26 20:52
PROVIDERS: Admitting Provider Family Medicine; Emergency Provider Emergency Medicine; PCP Nurse Practitioner Family; Visit Provider Internal Medicine
DX: I48.0 Paroxysmal atrial fibrillation (principal); I50.33 Acute on chronic diastolic (congestive) heart failure; E46 Unspecified protein-calorie malnutrition; N17.9 Acute kidney failure, unspecified; J96.11 Chronic respiratory failure with hypoxia; I13.0 Hypertensive heart and chronic kidney disease with heart failure and stage 1 through stage 4 chronic kidney disease, or unspecified chronic kidney disease; F10.10 Alcohol abuse, uncomplicated; R53.81 Other malaise; Z87.891 Personal history of nicotine dependence; E78.5 Hyperlipidemia, unspecified; E87.5 Hyperkalemia; Z79.02 Long term (current) use of antithrombotics/antiplatelets; J43.2 Centrilobular emphysema; Z99.81 Dependence on supplemental oxygen; E83.42 Hypomagnesemia; I95.9 Hypotension, unspecified; M62.84 Sarcopenia; N18.9 Chronic kidney disease, unspecified; I73.9 Peripheral vascular disease, unspecified; N40.0 Benign prostatic hyperplasia without lower urinary tract symptoms
CPT/HCPCS: 36415; 36600; 71045; 73610; 80048; 80053; 80061; 80306; 80307; 81003; 82306; 82803; 83036; 83605; 83735; 83880; 84145; 84443; 84484; 85025; 85610; 86140; 93005; 93306; 93970; 94640; 94664; 96365; 96366; 96372; 96374; 96375; 96376; 97110; 97116; 97161; 97165; 97530; 99285; A4222; C9113; J0283; J1160; J1650; J1940; J3411; J3475; J3490; J7050

== ENCOUNTER → 2023-08-04 09:09 | Outpatient (BNVA) | payer MEDICARE, SELFPAY | PROVIDERS: PCP Nurse Practitioner Family; Visit Provider Nurse Practitioner Family | DX: I50.32 Chronic diastolic (congestive) heart failure (principal); I50.9 Heart failure, unspecified; N18.9 Chronic kidney disease, unspecified; J43.9 Emphysema, unspecified; Z87.898 Personal history of other specified conditions; G47.00 Insomnia, unspecified; Q61.9 Cystic kidney disease, unspecified; R31.0 Gross hematuria; M19.072 Primary osteoarthritis, left ankle and foot; R53.1 Weakness; I10 Essential (primary) hypertension | CPT/HCPCS: 80053; 83880 ==

== ENCOUNTER → 2023-12-23 09:21 | Outpatient (BNVA) | payer MEDICARE, SELFPAY | PROVIDERS: PCP Nurse Practitioner Family; Visit Provider Nurse Practitioner Family | DX: I50.32 Chronic diastolic (congestive) heart failure (principal); R53.1 Weakness | CPT/HCPCS: 80053; 81003; 83880; 85025 ==

== ENCOUNTER → 2024-02-08 09:21 | Outpatient (BNVA) | payer MEDICARE, SELFPAY | PROVIDERS: PCP Nurse Practitioner Family; Visit Provider Nurse Practitioner Family | DX: R35.0 Frequency of micturition (principal) | CPT/HCPCS: 81000; 81003 ==

== ENCOUNTER 2024-02-18 19:44 | Inpatient (IN) | payer MEDICARE, SELFPAY ==
[2024-02-18] VITALS (15 sets, daily range): BP systolic 93–107; BP diastolic 58–68; PULSE 56–76; RESP 16–29; TEMP 36.5–37.2; O2SAT 88–98; BMI 25.8; BMI 23.8
--- NOTE | 2024-02-18 19:55 | XRR_ITS ---
PROCEDURE INFORMATION: Exam: XR Left Hip Exam date and time: 02/18/2024 7:58 PM Age: 73 years old Clinical indication: Injury or trauma; Blunt trauma (contusions or hematomas); Patient HX: EMS arrival for fall at home. C/O left hip pain with external rotation TECHNIQUE: Imaging protocol: Radiologic exam of the left hip. Views: 2 or 3 views hip with pelvis when performed. COMPARISON: US renal BI* [id number] 11/20/2022 10:34 AM FINDINGS: Bones/joints: Angulated and displaced intertrochanteric fracture of the left. No dislocation. Soft tissues: Unremarkable. XR/XR hip LT 2-3V wo/w pel* [id number] IMPRESSION: As above.
--- NOTE | 2024-02-18 19:57 | XRR_ITS ---
PROCEDURE INFORMATION: Exam: XR Chest Exam date and time: 02/18/2024 7:58 PM Age: 73 years old Clinical indication: Injury or trauma; Blunt trauma (contusions or hematomas); Patient HX: EMS arrival for fall at home. History of chf. TECHNIQUE: Imaging protocol: Radiologic exam of the chest. Views: 1 view. COMPARISON: CR XR chest 1V [id number] 07/24/2023 9:14 AM FINDINGS: Lungs: Unremarkable. No consolidation. Pleural spaces: Unremarkable. No pleural effusion. No pneumothorax. Heart/Mediastinum: Unremarkable. No cardiomegaly. Bones/joints: Unremarkable. XR/XR chest 1V portable [id number] IMPRESSION: No acute findings.
--- NOTE | 2024-02-18 20:00 | ED_ITS ---
HPI - Fall 2 General: Chief Complaint: Fall Stated Complaint: FALL Time Seen by Provider: 02/18/24 19:51 Source: patient and EMS Mode of arrival: EMS Limitations: no limitations History of Present Illness: 73-year-old male states he had 2 falls t catrachito states that he has some left hip pain from a fall he states he was able to stand but having pain with standing states that he typically uses a wheelchair or walker to get around. Is unsure if he hit his head he is in a c-collar currently Associated symptoms-after fall: Denies abdominal pain, chest pain, headache(s) or neck pain Related Data Home Medications Medication Instructions Recorded Confirmed metoprolol tartrate 50 mg tablet 50 mg PO BID 07/24/23 02/08/24 aspirin 81 mg tablet,delayed 81 mg PO DAILY 12/23/23 02/08/24 release (Adult Low Dose Aspirin) Previous Rx's Medication Instructions Recorded multivitamin 1 tab PO DAILY 90 days #90 tabs 05/01/22 cyanocobalamin (vitamin B-12) 1,000 mcg PO DAILY 30 days #30 caps 08/27/22 1,000 mcg capsule clopidogrel 75 mg tablet (Plavix) 75 mg PO DAILY 90 days #90 tabs 10/23/22 atorvastatin 40 mg tablet 40 mg PO DAILY 90 days #90 tabs 07/23/23 thiamine mononitrate (vit B1) 100 100 mg PO DAILY #30 tabs 07/27/23 mg tablet (Vitamin B-1 (mononitrate)) furosemide 40 mg tablet (Lasix) 40 mg PO DAILY 90 days #180 tabs 09/06/23 gabapentin 300 mg capsule 300 mg PO DAILY 90 days #90 caps 09/22/23 albuterol sulfate 90 mcg/actuation 1 puff inhalation Q4H PRN 12/23/23 aerosol inhaler Shortness Of Breath Or Wheezing #8.5 grams amiodarone 200 mg tablet (Pacerone) 400 mg (2 x 200 mg) PO DAILY #180 12/23/23 tabs ipratropium 0.5 mg-albuterol 3 mg 3 ml inhalation Q6H PRN Shortness 12/23/23 (2.5 mg base)/3 mL nebulization Of Breath #180 mL soln pantoprazole 40 mg tablet,delayed 40 mg PO DAILY 90 days #180 tabs 12/23/23 release nitrofurantoin 100 mg PO BID 7 days #14 caps 02/02/24 monohydrate/macrocrystals 100 mg capsule (Macrobid) budesonide-formoterol HFA 160 2 puff inhalation BID #10.2 grams 02/08/24 mcg-4.5 mcg/actuation aerosol inhaler (Symbicort) citalopram 20 mg tablet 20 mg PO DAILY 30 days #30 tabs 02/08/24 cyclobenzaprine 5 mg tablet 5 mg PO BID PRN muscle spasm 30 02/08/24 days #60 tabs tamsulosin 0.4 mg capsule 0.8 mg (2 x 0.4 mg) PO DAILY #60 02/08/24 caps Allergies Allergy/AdvReac Type Severity Reaction Status Date / Time bupropion [From Wellbutrin] Allergy Mild ALGY-Hives Verified 02/08/24 09:11 insect venom Allergy ALGY-Swell Verified 02/08/24 09:11 Lip/Tongue/Throat Review of Systems 2 Const: Denies: fever(s), chills, body aches or change in appetite ENMT: Denies: throat pain or dental pain Card: Denies: chest pain Resp: Denies: dyspnea GI: Denies: abdominal pain, nausea, vomiting or diarrhea Musc: Reports: extremity pain; Denies: neck pain or back pain Skin/Breast: Denies: rash Neuro: Denies: headache(s) PFSH ED 2 PFSH: Medical History History of spinal fracture Chronic back pain BPH (benign prostatic hyperplasia) Anxiety and depression Bacterial UTI Orthopnea Dyspnea, unspecified Enrolled in chronic care management PLEASE DO NOT REMOVE FROM ACTIVE Generalized weakness Encounter for smoking cessation counseling Alcohol abuse with withdrawal Alcoholism Chronic hypoxic respiratory failure Atrial fibrillation with rapid ventricular response Chronic kidney disease (CKD) COPD (chronic obstructive pulmonary disease) Acute exacerbation of CHF (congestive heart failure) Protein calorie malnutrition Diastolic CHF Hyperkalemia Chronic anticoagulation Physical deconditioning Vasculopathy CAD (coronary artery disease) Afib CKD (chronic kidney disease) Alcohol abuse Acute kidney injury Alcohol cessation counseling Claudication Environmental and seasonal allergies Venous stasis Arthritis of ankle, left Emphysema lung Abnormality of lung on chest x-ray Encounter for screening for cardiovascular disorders History of abnormal breathing pattern BPH loc w urin obs/LUTS COPD (chronic obstructive pulmonary disease) AAA (abdominal aortic aneurysm) CHF (congestive heart failure) Dyslipidemia PAD (peripheral artery disease) HTN (hypertension) Surgical History Previous back surgery Hx of aorto-femoral bypass Hx of hand surgery Family History Father Hypertension CAD (coronary artery disease) Myocardial infarction Stroke Mother Cancer Denies family history of Diabetes Clotting disorder Dementia Chronic kidney disease (CKD) Suicide Anesthesia complication Bleeding disorder Lung disease Social History Smoking and tobacco/nicotine status: former use of tobacco/nicotine Quit status (tobacco/nicotine): has quit using Year quit tobacco: 2012 Former quit date comment: 1.5-2 ppd X 30 years Alcohol intake: current Alcohol intake frequency: few times a week Substance/Drug Use: never Lives independently: Yes Housing: House Marital status: Current occupational status: retired Physical Exam 2 Const: COMMON NORMALS: patient oriented x3 HENMT: COMMON NORMALS: normocephalic and atraumatic HEAD & SCALP: n ormocephalic and atraumatic Eye: COMMON NORMALS: Equal, round and reactive pupils present and EOMs intact bilaterally PUPIL: Yes Equal, round and reactive pupils present Neck/C-Spine: OTHER: in collar Chest: COMMONS NORMALS: normal inspection of the chest and normal palpation of entire chest wall Resp: COMMON NORMALS: normal respiratory effort, No retractions, No use of accessory muscles and clear to auscultation bilaterally AUSCULTATION: clear to auscultation bilaterally Cardio: COMMON NORMALS: regular rate, regular rhythm and No murmurs present (Cardio) RATE: regular rate RHYTHM: regular rhythm GI: COMMON NORMALS: Normal to inspection, nondistended, normoactive bowel sounds present, Soft to palpation, non-tender and no masses PALPATION: Yes Soft to palpation Extremity: NARRATIVE EXTREMITY EXAM: tenderness over left hip Neuro: COMMON NORMALS: patient oriented x3, moves all extremities and no focal motor deficits Psych: COMMON NORMALS: mental status grossly normal, Normal thought process present and cooperative THOUGHT PROCESS: Normal thought process present Skin: COMMON NORMALS: no rashes or lesions noted and no wounds GENERAL SKIN EXAM: no rashes or lesions noted Course 2 Vital Signs: Vital signs: Vital Signs Temperature 98.9 F 02/18/24 19:52 Pulse Rate 58 L 02/18/24 19:52 Respiratory Rate 26 H 02/18/24 19:52 Pulse Oximetry 95 02/18/24 19:52 Oxygen Delivery Me thod Nasal Cannula 02/18/24 19:52 Oxygen Flow Rate 4 02/18/24 19:52 MDM - Fall Medical Decision Making Patient presents here with left hip fracture from fall. Head CT C-spine CT is negative he also does have hyponatremia here we will give him fluids spoke to the hospital follow-up orthopedic surgeon will admit Medical Records I reviewed the patient's medical records. Lab Data I reviewed the patient's lab results. 02/18/24 20:09 02/18/24 20:09 Radiology Impressions Hip/Pelvis X-Ray 02/18/24 19:55 IMPRESSION: As above. Chest X-Ray 02/18/24 19:57 IMPRESSION: No acute findings. Cervical Spine CT 02/18/24 20:14 IMPRESSION: Limited examination due to motion artifact but there is no gross fracture. Head CT 02/18/24 20:14 IMPRESSION: No acute intracranial abnormality. Senescent changes. Laboratory Results WBC 7.57 10^3/uL (3.29-11.43) 02/18/24 20:09 RBC 2.77 10^6/uL (3.85-5.65) L 02/18/24 20:09 Hgb 8.00 g/dL (11.27-16.99) L 02/18/24 20:09 Hct 25.9 % (37-53) L 02/18/24 20:09 MCV 93.5 fl (82-101) 02/18/24 20:09 MCH 28.9 pg (27-33) 02/18/24 20:09 MCHC 30.9 g/dL (30-55) 02/18/24 20:09 RDW 15.4 % (12.1-15.1) H 02/18/24 20:09 Plt Count 211 10^3/cmm (157-399) 02/18/24 20:09 MPV 8.8 fL (7.4-10.4) 02/18/24 20:09 Neut % (Auto) 75.6 % 02/18/24 20:09 Lymph % (Auto) 8.1 % 02/18/24 20:09 Cascade % (Auto) 11.2 % 02/18/24 20:09 Eos % (Auto) 4.4 % 02/18/24 20:09 Baso % (Auto) 0.4 % 02/18/24 20:09 Neut # (Auto) 5.73 10^3/uL (1.8-7.7) 02/18/24 20:09 Lymph # (Auto) 0.6 10^3/uL (0.8-4.8) L 02/18/24 20:09 Cascade # (Auto) 0.9 10^3/uL (0.2-0.9) 02/18/24 20:09 Eos # (Auto) 0.3 10^3/uL (0.0-0.8) 02/18/24 20:09 Baso # (Auto) 0.0 10^3/uL (0.0-0.1) 02/18/24 20:09 Nucleated RBC % (auto) 0 % 02/18/24 20:09 Nucleated RBCs # 0.0 /100WBC 02/18/24 20:09 PT 13.60 SECONDS (12.1-14.9) 02/18/24 20:09 INR 1.01 (0.8-1.2) 02/18/24 20:09 Sodium 124 mmol/L (136-145) L 02/18/24 20:09 Potassium 5.4 mmol/L (3.5-5.1) H 02/18/24 20:09 Chloride 89 mmol/L (98-107) L 02/18/24 20:09 Carbon Dioxide 30 mmol/L (22-29) H 02/18/24 20:09 Anion Gap 10.4 (5-19) 02/18/24 20:09 BUN 19 mg/dL (8-23) 02/18/24 20:09 Creatinine 1.5 mg/dL (0.7-1.2) H 02/18/24 20:09 GFR Calculation Not Reportable 02/18/24 20:09 Glucose 101 mg/dL (65-115) 02/18/24 20:09 Calculated Osmolality 260 mOsm/kg (285-295) L 02/18/24 20:09 Calcium 8.8 mg/dL (8.5-10.5) 02/18/24 20:09 Total Bilirubin 0.3 mg/dL (0.15-1.2) 02/18/24 20:09 AST 38 U/L (0-40) 02/18/24 20:09 ALT 15 U/L (0-41) 02/18/24 20:09 Alkaline Phosphatase 94 U/L (40-130) 02/18/24 20:09 Total Protein 6.1 g/dL (6.6-8.7) L 02/18/24 20:09 Albumin 3.4 g/dL (3.5-5.2) L 02/18/24 20:09 Globulin 2.7 g/dL (1.3-4.6) 02/18/24 20:09 All radiology interpretation(s) finalized by discharge Discharge Plan Discharge Patient Disposition: Admitted As Inpatient Clinical Impression: Closed fracture of left hip, Acute hyponatremia Condition: Stable Prescriptions: No Action multivitamin Tablet 1 tab PO DAILY 90 Days Qty: 90 1RF atorvastatin 40 mg tablet 40 mg PO DAILY 90 Days Qty: 90 1RF aspirin [Adult Low Dose Aspirin] 81 mg tablet,delayed release (DR/EC) 81 mg PO DAILY albuterol sulfate 90 mcg/actuation HFA aerosol inhaler 1 puff inhalation Q4H PRN (Reason: Shortness Of Breath Or Wheezing) Qty: 8.5 3RF ipratropium-albuterol 0.5 mg-3 mg(2.5 mg base)/3 mL solution for nebulization 3 ml INHALATION Q6H PRN (Reason: Shortness Of Breath) Qty: 180 3RF Pacerone 200 mg tablet 400 mg PO DAILY Qty: 180 1RF pantoprazole 40 mg tablet,delayed release (DR/EC) 40 mg PO DAILY 90 Days Qty: 180 1RF nitrofurantoin monohyd/m-cryst [Macrobid] 100 mg capsule 100 mg PO BID 7 Days Qty: 14 0RF Rx Instructions: must administer with a meal/food cyclobenzaprine 5 mg tablet 5 mg PO BID PRN (Reason: muscle spasm) 30 Days Qty: 60 1RF budesonide-formoterol [Symbicort] 160-4.5 mcg/actuation HFA aerosol inhaler 2 puff inhalation BID Qty: 10.2 6RF citalopram 20 mg tablet 20 mg PO DAILY 30 Days Qty: 30 0RF cyanocobalamin (vitamin B-12) 1,000 mcg capsule 1,000 mcg PO DAILY 30 Days Qty: 30 0RF Plavix 75 mg tablet 75 mg PO DAILY 90 Days Qty: 90 1RF Lasix 40 mg tablet 40 mg PO DAILY 90 Days Qty: 180 1RF Hold Instructions: Home Medication placed on hold at Doctor's office gabapentin 300 mg capsule 300 mg PO DAILY 90 Days Qty: 90 1RF tamsulosin 0.4 mg capsule 0.8 mg PO DAILY Qty: 60 0RF metoprolol tartrate 50 mg tablet 50 mg PO BID Vitamin B-1 (mononitrate) 100 mg Tablet 100 mg PO DAILY Qty: 30 0RF Referrals: FELIPE Hector, CARY [Primary Care Provider] - Coding Level of Care Code ED [facility]
[2024-02-18 20:14] LABS: Basophils % 0.4 %; Eosinophils # 0.3 10^3/uL (0.0-0.8); Eosinophils % 4.4 %; Hematocrit 25.9 % (37-53); Lymphocytes # 0.6 10^3/uL (0.8-4.8); Lymphocytes % 8.1 %; Mean Corpuscular HGB Conc 30.9 g/dL (30-55); Mean Corpuscular Hemoglobin 28.9 pg (27-33); Mean Corpuscular Volume 93.5 fl (82-101); Mean Platelet Volume 8.8 fL (7.4-10.4); Monocytes # 0.9 10^3/uL (0.2-0.9); Monocytes % 11.2 %; Neutrophils # 5.73 10^3/uL (1.8-7.7); Neutrophils % 75.6 %; Nucleated Red Blood Cells % 0 %; Platelet Count 211 10^3/cmm (157-399); Red Blood Count 2.77 10^6/uL (3.85-5.65); Red Cell Distribution Width 15.4 % (12.1-15.1); White Blood Count 7.57 10^3/uL (3.29-11.43)
--- NOTE | 2024-02-18 20:14 | CTR_ITS ---
PROCEDURE INFORMATION: Exam: CT Cervical Spine Without Contrast Exam date and time: 02/18/2024 8:24 PM Age: 73 years old Clinical indication: Injury or trauma; Blunt trauma; Patient HX: EMS arrival for fall at home. Patient does not remember if hitting head. C collar placed by EMS. TECHNIQUE: Imaging protocol: Computed tomography of the cervical spine without contrast. Radiation optimization: All CT scans at this facility use at least one of these dose optimization techniques: automated exposure control; mA and/or kV adjustment per patient size (includes targeted exams where dose is matched to clinical indication); or iterative reconstruction. COMPARISON: CT head wo con* [id number] 02/18/2024 8:22 PM RADIATION DOSE METRICS: Total DLP (mGy-cm): 429.27 FINDINGS: Limited examination due to significant motion artifact. Bones: C3 on C4 anterolisthesis. C4 on C5 anterolisthesis. Otherwise no traumatic malalignment. Multilevel degenerative changes of the cervical spine with varying degrees of neural foraminal narrowing. Preserved cervical vertebral body heights. Lungs: Lung apices are normal. Soft tissues: Unremarkable. CT/CT cervical spin wo con* [id number] IMPRESSION: Limited examination due to motion artifact but there is no gross fracture.
--- NOTE | 2024-02-18 20:14 | CTR_ITS ---
PROCEDURE INFORMATION: Exam: CT Head Without Contrast Exam date and time: 02/18/2024 8:22 PM Age: 73 years old Clinical indication: Injury or trauma; Blunt trauma (contusions or hematomas); Patient HX: EMS arrival for fall at home. Patient does not remember if hitting head. C collar placed by EMS. TECHNIQUE: Imaging protocol: Computed tomography of the head without contrast. Radiation optimization: All CT scans at this facility use at least one of these dose optimization techniques: automated exposure control; mA and/or kV adjustment per patient size (includes targeted exams where dose is matched to clinical indication); or iterative reconstruction. COMPARISON: No relevant prior studies available. RADIATION DOSE METRICS: Total DLP (mGy-cm): 1568.18 FINDINGS: Brain: Age-related brain parenchymal atrophy. Areas of hypoattenuation in the periventricular and subcortical deep white matter likely on the basis of chronic microvascular ischemic changes. No acute intra cranial hemorrhage. No mass effect or midline shift. No definitive CT evidence of acute territorial infarction. Cerebral ventricles: Prominence of the lateral ventricular system likely on the basis of ex vacuo dilatation. Paranasal sinuses: Visualized sinuses are unremarkable. No fluid levels. Mastoid air cells: Visualized mastoid air cells are well aerated. Bones: Intact calvarium. Bony nasal septal deviation. Soft tissues: Unremarkable. CT/CT head wo con* [id number] IMPRESSION: No acute intracranial abnormality. Senescent changes.
[2024-02-18 20:30] LABS: INR 1.01 (0.8-1.2)
[2024-02-18 20:37] LABS: Alanine Aminotransferase 15 U/L (0-41); Albumin Level 3.4 g/dL (3.5-5.2); Alkaline Phosphatase 94 U/L (40-130); Anion Gap 10.4 (5-19); Aspartate Amino Transferase 38 U/L (0-40); Blood Urea Nitrogen 19 mg/dL (8-23); Calcium 8.8 mg/dL (8.5-10.5); Carbon Dioxide 30 mmol/L (22-29); Chloride 89 mmol/L (98-107); Creatinine Clr Calc Pharmacy 50.2556; Globulin 2.7 g/dL (1.3-4.6); Glucose 101 mg/dL (65-115); Osmolality Calculated 260 mOsm/kg (285-295); Potassium 5.4 mmol/L (3.5-5.1); Sodium 124 mmol/L (136-145); Total Bilirubin 0.3 mg/dL (0.15-1.2); Total Protein 6.1 g/dL (6.6-8.7)
--- NOTE | 2024-02-18 21:01 | P.HP_ITS ---
Providers/Chief Complaint 2 Primary Care Provider: CARY Dent Chief Complaint: FALL History of Present Illness Jamie Davison is a 73 year old male with a past medical history significant for multiple comorbidities including congestive heart failure, COPD, chronic kidney disease, emphysema, benign prostatic hypertrophy, and chronic anemia who presents to the emergency department with mechanical fall. Patient states that he fell twice earlier today. He states he was trying to get coffee whenever he fell. He reports development of severe left hip pain. He states the pains much worse on exertion. He states at rest is only about a 1-2. Denies any fevers, chills, chest pain, shortness of breath, or vision changes. Patient is unsure whether or not he hit his head. CT of cervical neck and head CT in the emergency department were negative for acute pathologies. Left hip x-ray showed angulated and displaced intertrochanteric fracture of the left hip. Orthopedic surgery consulted, recommending n.p.o. after midnight for possible surgery on Wednesday versus Wednesday pending clinical course and evaluation. Review of Systems 2 Narrative: A complete review of systems was obtained and is negative except as stated in HPI. Medications/Allergies Home Medications Medication Instructions Recorded Confirmed Last Taken Type multivitamin 1 tab PO DAILY 90 days #90 tabs 05/01/22 02/08/24 07/24/23 Rx cyanocobalamin (vitamin B-12) 1,000 mcg PO DAILY 30 days #30 caps 08/27/22 02/08/24 07/24/23 Rx 1,000 mcg capsule clopidogrel 75 mg tablet (Plavix) 75 mg PO DAILY 90 days #90 tabs 10/23/22 02/08/24 07/24/23 Rx atorvastatin 40 mg tablet 40 mg PO DAILY 90 days #90 tabs 07/23/23 02/08/24 Unknown Rx metoprolol tartrate 50 mg tablet 50 mg PO BID 07/24/23 02/08/24 07/24/23 History thiamine mononitrate (vit B1) 100 100 mg PO DAILY #30 tabs 07/27/23 02/08/24 Unknown Rx mg tablet (Vitamin B-1 (mononitrate)) furosemide 40 mg tablet (Lasix) 40 mg PO DAILY 90 days #180 tabs 09/06/23 02/08/24 Unknown Rx gabapentin 300 mg capsule 300 mg PO DAILY 90 days #90 caps 09/22/23 02/08/24 Unknown Rx albuterol sulfate 90 mcg/actuation 1 puff inhalation Q4H PRN 12/23/23 02/08/24 Unknown Rx aerosol inhaler Shortness Of Breath Or Wheezing #8.5 grams amiodarone 200 mg tablet (Pacerone) 400 mg (2 x 200 mg) PO DAILY #180 12/23/23 02/08/24 Unknown Rx tabs aspirin 81 mg tablet,delayed 81 mg PO DAILY 12/23/23 02/08/24 Unknown History release (Adult Low Dose Aspirin) ipratropium 0.5 mg-albuterol 3 mg 3 ml inhalation Q6H PRN Shortness 12/23/23 02/08/24 Unknown Rx (2.5 mg base)/3 mL nebulization Of Breath #180 mL soln pantoprazole 40 mg tablet,delayed 40 mg PO DAILY 90 days #180 tabs 12/23/23 02/08/24 Unknown Rx release nitrofurantoin 100 mg PO BID 7 days #14 caps 02/02/24 02/08/24 Unknown Rx monohydrate/macrocrystals 100 mg capsule (Macrobid) budesonide-formoterol HFA 160 2 puff inhalation BID #10.2 grams 02/08/24 02/08/24 Unknown Rx mcg-4.5 mcg/actuation aerosol inhaler (Symbicort) citalopram 20 mg tablet 20 mg PO DAILY 30 days #30 tabs 02/08/24 02/08/24 Unknown Rx cyclobenzaprine 5 mg tablet 5 mg PO BID PRN muscle spasm 30 02/08/24 02/08/24 Unknown Rx days #60 tabs tamsulosin 0.4 mg capsule 0.8 mg (2 x 0.4 mg) PO DAILY #60 02/08/24 Unknown Rx caps Allergies Allergy/AdvReac Type Severity Reaction Status Date / Time bupropion [From Wellbutrin] Allergy Mild ALGY-Hives Verified 02/08/24 09:11 insect venom Allergy ALGY-Swell Verified 02/08/24 09:11 Lip/Tongue/Throat PFSH Acute 2 PFSH: Medical History (Updated 02/18/24 @ 21:53 by Jarred Wang MD) Alcoholism Hyperkalemia Positive cardiac stress test CAD (coronary artery disease) Afib CHF exacerbation History of spinal fracture Chronic back pain BPH (benign prostatic hyperplasia) Anxiety and depression Bacterial UTI Orthopnea Dyspnea, unspecified Enrolled in chronic care management PLEASE DO NOT REMOVE FROM ACTIVE Generalized weakness Encounter for smoking cessation counseling Alcohol abuse with withdrawal Chronic hypoxic respiratory failure Atrial fibrillation with rapid ventricular response Chronic kidney disease (CKD) COPD (chronic obstructive pulmonary disease) Acute exacerbation of CHF (congestive heart failure) Protein calorie malnutrition Diastolic CHF Chronic anticoagulation Physical deconditioning Vasculopathy CKD (chronic kidney disease) Alcohol abuse Acute kidney injury Alcohol cessation counseling Claudication Environmental and seasonal allergies Venous stasis Arthritis of ankle, left Emphysema lung Abnormality of lung on chest x-ray Encounter for screening for cardiovascular disorders History of abnormal breathing pattern BPH loc w urin obs/LUTS COPD (chronic obstructive pulmonary disease) AAA (abdominal aortic aneurysm) CHF (congestive heart failure) Dyslipidemia PAD (peripheral artery disease) HTN (hypertension) Surgical History Previous back surgery Hx of aorto-femoral bypass Hx of hand surgery Family History Father Hypertension CAD (coronary artery disease) Myocardial infarction Stroke Mother Cancer Denies family history of Diabetes Clotting disorder Dementia Chronic kidney disease (CKD) Suicide Anesthesia complication Bleeding disorder Lung disease Social History Smoking and tobacco/nicotine status: former use of tobacco/nicotine Quit status (tobacco/nicotine): has quit using Year quit tobacco: 2012 Former quit date comment: 1.5-2 ppd X 30 years Alcohol intake: current Alcohol intake frequency: few times a week Substance/Drug Use: never Lives independently: Yes Housing: House Marital status: Current occupational status: retired Vitals/I&O/Wt Last Vital Signs Temp 98.9 F 02/18/24 19:52 Pulse 58 L 02/18/24 19:52 Resp 26 H 02/18/24 19:52 Pulse Ox 95 02/18/24 19:52 O2 Del Method Nasal Cannula 02/18/24 19:52 O2 Flow Rate 4 02/18/24 19:52 Weight last 48 hrs Weight 88.904 kg Physical Exam 2 Narrative: General: Patient is awake and alert. Chronically ill-appearing. Conversational. Head: Normocephalic. Atraumatic. EOM intact. Neck: No JVD. Cardiovascular: RRR. No gallops. No murmurs. 2+ pitting edema in bilateral lower extremities. Lungs: Prolonged expiratory phase. No wheezing. No crackles. On supplemental oxygen support. Skin: No jaundice. No rashes. Abdomen: Normal bowel sounds, abdomen soft and nontender. Genito Urinary: Genital exam not performed since complaints not related. Rectal: Rectal exam not performed since no symptoms indicated blood loss. Extremities: No cyanosis or clubbing. Left lower extremity is shorter and externally rotated. Musculoskeletal: No swollen or erythematous joints. Neurological: Moves all 4 extremities. No myoclonus. Data 02/18/24 20:09 02/18/24 22:09 A&P Assessment and plan (1) Closed fracture of left hip: Left hip fracture secondary to mechanical fall Strict bedrest Neurovascular checks Ashley catheter for prolonged immobilization Orthopedic surgery consulted, n.p.o. after midnight for evaluation Hold Plavix Multimodal pain control Bowel regiment Qualifiers: Encounter type: initial encounter Qualified Code(s): S72.002A - Fracture of unspecified part of neck of left femur, initial encounter for closed fracture (2) Anemia: Acute on chronic anemia, suspected anemia of chronic disease/inflammatory anemia Patient consents to transfusion 1 packed blood red cell May need Lasix if he becomes fluid overloaded with transfusion Backorder iron labs Repeat labs in a.m. (3) Acute hyponatremia: Acute on chronic hyponatremia, could be culprit to his recurrent falls He appears hypervolemic on exam Check urine electrolytes, TSH Repeat labs in a.m. (4) Hyperkalemia: Mild hyperkalemia Received 1 L IV fluid bolus in ED Telemetry monitoring Recheck labs in a.m. (5) CHF (congestive heart failure): Chronic heart failure with preserved ejection fraction of 55 to 60% Strict I's and O's Daily weights Patient is currently not in exacerbation, but remains at risk with blood transfusion tonight Qualifiers: Heart failure chronicity: chronic Heart failure type: diastolic Qualified Code(s): I50.32 - Chronic diastolic (congestive) heart failure (6) BPH (benign prostatic hyperplasia): Plan to place Ashley catheter Plan to continue home medications after his list is updated Qualifiers: Lower urinary tract symptom detail: incomplete bladder emptying Lower urinary tract symptom presence: symptoms present Qualified Code(s): N40.1 - Benign prostatic hyperplasia with lower urinary tract symptoms; R39.14 - Feeling of incomplete bladder emptying (7) CAD (coronary artery disease): Hold Plavix for surgery Plan to resume other home medications after list is updated Qualifiers: Associated angina: without angina Coronary Disease-Associated Artery/Lesion type: [place] artery [place] vs. transplanted heart: [place] heart Qualified Code(s): I25.10 - Atherosclerotic heart disease of [place] coronary artery without angina pectoris (8) Afib: Atrial fibrillation, unspecified type Check EKG for preop assessment Not on therapeutic anticoagulation per prior home medication list Qualifiers: Atrial fibrillation type: paroxysmal Qualified Code(s): I48.0 - Paroxysmal atrial fibrillation (9) Alcohol abuse: [facility] protocol Plan DVT prophylaxis: SCDs Attestations 2 Medical Necessity Statement*: Patient presents with mechanical fall with severe hip pain, found to have left- sided hip fracture, hyponatremia, and acute on chronic anemia with expected hospitalization across 2 midnights for blood transfusion, hyponatremia workup, orthopedic evaluation and supportive care. Coding Level of Care Code Acute Code for [facility] Fwd Diagnoses Closed fracture of left hip S72.002A Encounter type: initial encounter Anemia D64.9 Acute hyponatremia E87.1 Hyperkalemia E87.5 Chronic diastolic congestive heart failure I50.32 Heart failure chronicity: chronic Heart failure type: diastolic Benign prostatic hyperplasia with incomplete bladder emptying N40.1; R39.14 Lower urinary tract symptom detail: incomplete bladder emptying Lower urinary tract symptom presence: symptoms present Coronary artery disease involving [place] coronary artery of [place] heart without angina pectoris I25.10 Associated angina: without angina Coronary Disease-Associated Artery/Lesion type: [place] artery [place] vs. transplanted heart: [place] heart Paroxysmal atrial fibrillation I48.0 Atrial fibrillation type: paroxysmal Alcohol abuse F10.10
--- NOTE | 2024-02-18 21:28 | ECG_ITS ---
Tred Test Date: 2024-02-18 Pat Name: Jamie Davison Department: Room: 267 Gender: Male [employer]: : 1950 Requested By: Jarred Deleon Order Number: [id number] Rojas MD: Gamaliel Varela M.D. Measurements Intervals [place] Rate: 64 P: -70 [place]: 217 QRS: 70 QRSD: 110 T: 73 QT: 486 QTc: 502 Interpretive Statements SINUS RHYTHM WITH FIRST DEGREE AV BLOCK WITH OCCASIONAL ECTOPIC PREMATURE COMPLEXES INDETERMINATE AXIS PROLONGED QT INTERVAL Compared to ECG 07/24/2023 14:40:44 First degree AV block now present Indeterminate axis now present Prolonged QT interval now present Atrial flutter no longer present Intraventricular conduction delay no longer present Electronically Signed On 02-19-2024 10:32:12 MEDICAL IMAGING SPECIALIST by Gamaliel Varela M.D. [email or web address]
[2024-02-18] MEDS: sodium chloride 0.9% 1,000 ML 999 ML IV ×2 (21:30→22:05)
--- NOTE | 2024-02-18 22:00 | CTR_ITS ---
PROCEDURE INFORMATION: Exam: CT Abdomen And Pelvis With Contrast Exam date and time: 02/18/2024 10:15 PM Age: 73 years old Clinical indication: Injury or trauma; Blunt; Generalized; Patient HX: EMS arrival from home for fall. Positive for left hip fracture. Patient has become acutely hypotensive while in er. History of chf, ckd, and bph. TECHNIQUE: Imaging protocol: Computed tomography of the abdomen and pelvis with contrast. Radiation optimization: All CT scans at this facility use at least one of these dose optimization techniques: automated exposure control; mA and/or kV adjustment per patient size (includes targeted exams where dose is matched to clinical indication); or iterative reconstruction. Contrast material: OMNI 350; Contrast volume: 80 ml; Contrast route: INTRAVENOUS (IV); COMPARISON: CR (PELVIS, ) 02/18/2024 7:58 PM RADIATION DOSE METRICS: Total DLP (mGy-cm): 662.23 FINDINGS: Lungs: Bibasilar atelectasis. Stable right basilar cyst and diaphragmatic eventration. Liver: The liver is unremarkable. Gallbladder and biliary ducts: The gallbladder is unremarkable. No biliary dilation. Pancreas: Scattered calcifications within the pancreatic parenchyma, which may be sequela of chronic or remote pancreatitis. Spleen: The spleen is unremarkable. Adrenal glands: The adrenal glands are unremarkable. Kidneys and ureters: Bilateral simple renal cysts are present, as well as other subcentimeter hypodensities which are too small to characterize. Stomach and bowel: Colonic diverticulosis without evidence of diverticulitis. Appendix: A normal appendix is identified. Intraperitoneal space: There is mild mesenteric edema. No significant peritoneal free fluid. No free peritoneal air. Vasculature: Redemonstrated multifocal aneurysms of the visualized descending aorta and abdominal aorta. A saccular infrarenal abdominal aortic aneurysm arising from a focal chronic dissection has increased in size since 2020, now measuring up to 4.0 x 4.8 x 4.9 cm (previously 3.3 x 3.7 x 3.3 cm in 2020). The aneurysm sac drapes along the anterior prevertebral space. Additional aneurysms of the visualized descending aorta and distal infrarenal aorta at the level of the iliac bifurcation are unchanged since 2020, and measure up to 3.4 and 3.0 cm, respectively. Lymph nodes: No enlarged lymph nodes by size criteria. Urinary bladder: Pronounced bladder diverticulosis and extensive trabeculation. There are layering calculi within the diverticula. Findings may be related to neurogenic bladder or chronic outlet obstruction. Reproductive: Scattered penile calcifications. Bones/joints: The bones are diffusely demineralized. The spine demonstrates severe degenerative changes at multiple levels. Multilevel vertebral body partial fusions. Mildly comminuted left femoral intertrochanteric fracture. Multiple partially imaged chronic bilateral rib fractures. Inflammatory changes within the right hip and groin. There is ill-defined fat stranding along the femoral vasculature, with heterogeneity of the visualized left femoral vein. Soft tissues: Posttraumatic soft tissue and intramuscular swelling involving the visualized right thigh. Other findings: Central prostatic gland hyperplasia. CT/CT abdomen pelvis w con* [id number] IMPRESSION: 1. Increase in size of a saccular infrarenal abdominal aortic aneurysm arising from a focal chronic dissection, now measuring up to 4.9 cm (previously up to 3.7 cm in 2020). The aneurysm sac drapes along the prevertebral space, which may suggest impending rupture. 2. Additional multifocal aneurysms of the visualized descending aorta and distal infrarenal abdominal aorta are unchanged since 2020. 3. Mildly comminuted left femoral intertrochanteric fracture with associated local inflammatory changes and edema. Ill-defined fat stranding along the femoral vasculature, with heterogeneity of the visualized left femoral vein raises suspicion for possible deep venous thrombosis. Recommend left lower extremity Doppler ultrasound for further assessment. Chest CTA may also be obtained if there is clinical suspicion for pulmonary embolism in the setting of recent fracture. 4. Pronounced bladder diverticulosis and extensive trabeculation and layering calculi within the diverticula. Findings may be related to neurogenic bladder or chronic outlet obstruction. Mild thickening may suggest cystitis in the appropriate clinical setting. 5. Multiple partially imaged chronic bilateral rib fractures. COMMENT: THIS REPORT CONTAINS FINDINGS THAT MAY BE CRITICAL TO PATIENT CARE. The exam findings were verbally communicated by me to RICKY LANDA via telephone conference at 10:52 PM S[employer] COUNSELLOR on 02/18/2024. The findings were acknowledged and understood. COMMENTS: Consistent with the [employer] [employer]'s Incidental Findings Committee white paper (J Am Rusty Radiol 2018): Any incidental renal lesion less than 1 cm or classified as too small to characterize, or any incidental cystic renal lesion characterized as simple-appearing, is likely benign. No follow-up imaging is recommended for these lesions per consensus recommendations based on imaging criteria.
[2024-02-18] MEDS: iohexol 350 mg/mL 500 mL Btl (per mL) IV (22:15)
--- NOTE | 2024-02-18 23:01 | P.CONIM_ITS ---
<Statement entered by Baljinder Varela DO - 02/20/24 12:01> Reviewed and agree with PAs assessment and plan. Plan will be for left hip trochanteric femur nail on Wednesday as patient will require medical optimization on Wednesday. Please refer to my progress note on Wednesday for MDM/discussion of surgical intervention with the patient. Baljinder Varela DO Orthopedic surgery Providers/Reason For Consult 2 Consulting Physician/Specialty*: Dr. Avery DO/orthopedic surgeon Reason for Consult*: Left hip fracture Requesting Physician: Dr. Best DODSON/emergency department Attending Physician: Jarred Wang MD Primary Care Provider: CARY Dent History of Present Illness History of Present Illness Jamie Davison is a 73 year old male that is here for left hip fracture. Patient uses walker and wheelchair at baseline. Patient states that today he had 2 falls from a standing position. After falls he was having left hip pain that worsened with weightbearing. Patient does take Plavix. Patient lives at home alone. Review of Systems 2 General: Reports: 10 or more systems reviewed and unremarkable except in HPI and below Const: Denies: fever(s) or chills Card: Denies: chest pain or palpitations Resp: Denies: dyspnea GI: Denies: abdominal pain, nausea or vomiting : Denies: dysuria Musc: Reports: extremity pain (left hip) and limited range of motion (Left hip) Skin/Breast: Denies: rash Medications/Allergies Home Medications Medication Instructions Recorded Confirmed Last Taken Type multivitamin 1 tab PO DAILY 90 days #90 tabs 05/01/22 02/08/24 07/24/23 Rx cyanocobalamin (vitamin B-12) 1,000 mcg PO DAILY 30 days #30 caps 08/27/22 02/08/24 07/24/23 Rx 1,000 mcg capsule clopidogrel 75 mg tablet (Plavix) 75 mg PO DAILY 90 days #90 tabs 10/23/22 02/08/24 07/24/23 Rx atorvastatin 40 mg tablet 40 mg PO DAILY 90 days #90 tabs 07/23/23 02/08/24 Unknown Rx metoprolol tartrate 50 mg tablet 50 mg PO BID 07/24/23 02/08/24 07/24/23 History thiamine mononitrate (vit B1) 100 100 mg PO DAILY #30 tabs 07/27/23 02/08/24 Unknown Rx mg tablet (Vitamin B-1 (mononitrate)) furosemide 40 mg tablet (Lasix) 40 mg PO DAILY 90 days #180 tabs 09/06/23 02/08/24 Unknown Rx gabapentin 300 mg capsule 300 mg PO DAILY 90 days #90 caps 09/22/23 02/08/24 Unknown Rx albuterol sulfate 90 mcg/actuation 1 puff inhalation Q4H PRN 12/23/23 02/08/24 Unknown Rx aerosol inhaler Shortness Of Breath Or Wheezing #8.5 grams amiodarone 200 mg tablet (Pacerone) 400 mg (2 x 200 mg) PO DAILY #180 12/23/23 02/08/24 Unknown Rx tabs aspirin 81 mg tablet,delayed 81 mg PO DAILY 12/23/23 02/08/24 Unknown History release (Adult Low Dose Aspirin) ipratropium 0.5 mg-albuterol 3 mg 3 ml inhalation Q6H PRN Shortness 12/23/23 02/08/24 Unknown Rx (2.5 mg base)/3 mL nebulization Of Breath #180 mL soln pantoprazole 40 mg tablet,delayed 40 mg PO DAILY 90 days #180 tabs 12/23/23 02/08/24 Unknown Rx release nitrofurantoin 100 mg PO BID 7 days #14 caps 02/02/24 02/08/24 Unknown Rx monohydrate/macrocrystals 100 mg capsule (Macrobid) budesonide-formoterol HFA 160 2 puff inhalation BID #10.2 grams 02/08/24 02/08/24 Unknown Rx mcg-4.5 mcg/actuation aerosol inhaler (Symbicort) citalopram 20 mg tablet 20 mg PO DAILY 30 days #30 tabs 02/08/24 02/08/24 Unknown Rx cyclobenzaprine 5 mg tablet 5 mg PO BID PRN muscle spasm 30 02/08/24 02/08/24 Unknown Rx days #60 tabs tamsulosin 0.4 mg capsule 0.8 mg (2 x 0.4 mg) PO DAILY #60 02/08/24 Unknown Rx caps Allergies Allergy/AdvReac Type Severity Reaction Status Date / Time bupropion [From Wellbutrin] Allergy Mild ALGY-Hives Verified 02/08/24 09:11 insect venom Allergy ALGY-Swell Verified 02/08/24 09:11 Lip/Tongue/Throat PFSH Acute 2 PFSH: Medical History (Updated 02/18/24 @ 21:53 by Jarred Wnag MD) Alcoholism Hyperkalemia Positive cardiac stress test CAD (coronary artery disease) Afib CHF exacerbation History of spinal fracture Chronic back pain BPH (benign prostatic hyperplasia) Anxiety and depression Bacterial UTI Orthopnea Dyspnea, unspecified Enrolled in chronic care management PLEASE DO NOT REMOVE FROM ACTIVE Generalized weakness Encounter for smoking cessation counseling Alcohol abuse with withdrawal Chronic hypoxic respiratory failure Atrial fibrillation with rapid ventricular response Chronic kidney disease (CKD) COPD (chronic obstructive pulmonary disease) Acute exacerbation of CHF (congestive heart failure) Protein calorie malnutrition Diastolic CHF Chronic anticoagulation Physical deconditioning Vasculopathy CKD (chronic kidney disease) Alcohol abuse Acute kidney injury Alcohol cessation counseling Claudication Environmental and seasonal allergies Venous stasis Arthritis of ankle, left Emphysema lung Abnormality of lung on chest x-ray Encounter for screening for cardiovascular disorders History of abnormal breathing pattern BPH loc w urin obs/LUTS COPD (chronic obstructive pulmonary disease) AAA (abdominal aortic aneurysm) CHF (congestive heart failure) Dyslipidemia PAD (peripheral artery disease) HTN (hypertension) Surgical History Previous back surgery Hx of aorto-femoral bypass Hx of hand surgery Family History Father Hypertension CAD (coronary artery disease) Myocardial infarction Stroke Mother Cancer Denies family history of Diabetes Clotting disorder Dementia Chronic kidney disease (CKD) Suicide Anesthesia complication Bleeding disorder Lung disease Social History Smoking and tobacco/nicotine status: former use of tobacco/nicotine Quit status (tobacco/nicotine): has quit using Year quit tobacco: 2012 Former quit date comment: 1.5-2 ppd X 30 years Alcohol intake: current Alcohol intake frequency: few times a week Substance/Drug Use: never Lives independently: Yes Housing: House Marital status: Current occupational status: retired Vitals/I&O/Wt Last Vital Signs Temp 98.9 F 02/18/24 19:52 Pulse 64 02/18/24 22:43 Resp 18 02/18/24 22:43 BP 97/63 02/18/24 22:43 Pulse Ox 94 02/18/24 22:24 O2 Del Method Nasal Cannula 02/18/24 22:24 O2 Flow Rate 4 02/18/24 19:52 02/18/24 02/18/24 02/19/24 14:59 22:59 06:59 Intake Total 1999 Balance 1999 Weight last 48 hrs Weight 196 lb Physical Exam 2 Const: COMMON NORMALS: no acute distress and alert Resp: COMMON NORMALS: normal respiratory effort and No retractions Cardio: COMMON NORMALS: Peripheral pulses 2+ throughout PERIPHERAL PULSES: Peripheral pulses 2+ throughout Extremity: NARRATIVE EXTREMITY EXAM: Left lower extremity-leg is shortened and externally rotated. Positive logroll test. Tenderness to palpation left hip. compartments are soft and compressible. Patient can Wiggle toes. Toes are warm and well-perfused. Pedal pulse 1+. Secondary assessment of other extremities. Upper extremities-no visible injuries, abrasions. Full range of motion in shoulders, elbows and wrist. no tenderness to palpation of shoulders or wrist. Right lower extremity-no visible injury or trauma seen. Full range of motion in hip. Negative logroll test. Patient able to perform straight leg raise and can dorsiflex plantarflex foot. Pedal pulse 1+ and patient can wiggle toes. Neuro: SENSORIUM/ORIENTATION: Yes alert Skin: GENERAL SKIN EXAM: dry skin Data 02/18/24 20:09 02/18/24 20:09 Xray Ortho: Radiologist's impression: [address] [place] [address] XRay Report Signed Patient: Jamie Davison Unit #: [id number] : [id number] Age/Sex: 73 / M ADM Date: 02/18/24 Loc: ER Room/Bed: Attending Dr: Ordering Provider/Ordering MD: David Jewell MD Date of Service: 02/18/24 Procedure(s): XR hip LT 2-3V wo/w pel* [id number] Accession Number(s): [id number] Report Number: [id number] PROCEDURE INFORMATION: Exam: XR Left Hip Exam date and time: 02/18/2024 7:58 PM Age: 73 years old Clinical indication: Injury or trauma; Blunt trauma (contusions or hematomas); Patient HX: EMS arrival for fall at home. C/O left hip pain with external rotation TECHNIQUE: Imaging protocol: Radiologic exam of the left hip. Views: 2 or 3 views hip with pelvis when performed. COMPARISON: US renal BI* [id number] 11/20/2022 10:34 AM FINDINGS: Bones/joints: Angulated and displaced intertrochanteric fracture of the left. No dislocation. Soft tissues: Unremarkable. XR/XR hip LT 2-3V wo/w pel* [id number] IMPRESSION: As above. Dictated By: Juju Patel MD A&P Assessment and plan (1) Closed fracture of left hip: Qualifiers: Encounter type: initial encounter Qualified Code(s): S72.002A - Fracture of unspecified part of neck of left femur, initial encounter for closed fracture Plan Plan: -Imaging and Labs reviewed -Hospitalist on board for medical management. -VTE prophylaxis -Nonweightbearing on Left leg -Pain control -Hold daily blood thinner -N.p.o. after midnight on Wednesday, February 18 --Medical optimization tomorrow due to his comorbidities. After discussion with anesthesia and internal medicine we will take patient to surgery on Wednesday morning after a day of medical optimization. -Surgery on WednesdayFebruary 19 for left hip Trochanteric femur nail Coding Level of Care Code Acute Code for Chg Fwd Diagnoses Closed fracture of left hip S72.002A Encounter type: initial encounter
--- NOTE | 2024-02-18 23:46 | PC.NURSE ---
Left Hip Edema Patient's lower legs noted to have 2+ edema bilaterally while patient's left upper hip more edematous than the right upper hip. Left upper hip also firm to palpation.
[2024-02-19] VITALS (155 sets, daily range): BP systolic 66–161; BP diastolic 40–137; PULSE 61–101; RESP 14–30; TEMP 36.6–37.6; O2SAT 82–100; BMI 23.7
[2024-02-19 00:14] LABS: Ferritin 248 ng/mL (30-400); Iron 34 ug/dL (59-158); Percent Saturation 20.8 % (20-50); Total Iron Binding Capacity 163 mcg/dl; Unsaturated Iron Binding 129 ug/dL (112-347)
[2024-02-19 00:24] LABS: Albumin Level 3.5 g/dL (3.5-5.2); Anion Gap 12.5 (5-19); Blood Urea Nitrogen 19 mg/dL (8-23); Calcium 8.6 mg/dL (8.5-10.5); Carbon Dioxide 29 mmol/L (22-29); Chloride 90 mmol/L (98-107); Creatinine Clr Calc Pharmacy 50.2556; Glucose 103 mg/dL (65-115); NT Pro B Type Natriuretic Pept 2674 pg/mL (0-450); Phosphorus 3.9 mg/dL (2.5-4.5); Potassium 5.5 mmol/L (3.5-5.1); Sodium 126 mmol/L (136-145); Thyroid Stimulating Hormone 2.39 uIU/mL (0.27-4.20)
--- NOTE | 2024-02-19 00:30 | PC.NURSE ---
Addendum entered by Dulce Maria Richey RN 02/19/24 07:40: Additional order received to not administer ordered PRBCs until further notice. Original Note: Physician Communication Patient's work of breathing increased with abdominal breathing noted, a RR of 23-29, and diminished lung sounds bilaterally. Patient complaining that he can't breathe right now, and stating he thinks there is stuff that needs to break up in there. Furthermore, patient's ct scan suggestive of possible DVT in left femoral vein. Dr. Wang notified; orders received for a left venous doppler, 40 mg lasix IVP once, as well as 200 mg robitussin PO Q4HR PRN.
--- NOTE | 2024-02-19 00:41 | USR_ITS ---
PROCEDURE INFORMATION: Exam: US Duplex Left Lower Extremity Veins, Limited Exam date and time: 02/19/2024 9:27 AM Age: 73 years old Clinical indication: Screening exam; Additional info: Possible dvt TECHNIQUE: Imaging protocol: Real-time duplex ultrasound of the left extremity with 2-D guevara scale, color Doppler flow and spectral waveform analysis including responses to compression and other maneuvers (when performed) with image documentation. Limited exam focused on the left lower extremity veins. COMPARISON: US CV venous duplex [facility] [id number] 07/24/2023 6:07 PM FINDINGS: Left deep veins: Unremarkable. The common femoral, femoral, proximal profunda femoral, popliteal, and infrapopliteal veins are patent without thrombus. Normal Doppler waveforms. Normal compressibility and/or augmentation response. Superficial veins: Greater saphenous vein at the saphenofemoral junction is patent without thrombus. Soft tissues: Unremarkable. US/CV venous duplex [facility] [id number] IMPRESSION: No evidence of deep vein thrombosis in the left leg.
[2024-02-19] MEDS: FUROsemide 10 mg/mL SDV 4mL 40 MG IVP (00:59)
[2024-02-19 02:34] LABS: Potassium, Radom Urine 40 mmol/L; Urine Random Chloride 84 mmol/L; Urine Random Sodium 56 mmol/L
--- NOTE | 2024-02-19 02:37 | XRR_ITS ---
PROCEDURE INFORMATION: Exam: XR Chest Exam date and time: 02/19/2024 2:45 AM Age: 73 years old Clinical indication: Shortness of breath; Patient HX: Worsening SOB. History of chf. TECHNIQUE: Imaging protocol: Radiologic exam of the chest. Views: 1 view. COMPARISON: CR (CHEST, ) 02/18/2024 7:58 PM FINDINGS: Lungs: No consolidation. No pulmonary edema. Stable small calcified granuloma at the right lung apex. Pleural spaces: No pneumothorax or pleural effusion. Heart/Mediastinum: Cardiomediastinal silhouette is stable. Bones/joints: No acute osseous abnormality. XR/XR chest 1V portable [id number] IMPRESSION: No acute findings.
[2024-02-19] MEDS: midodrine 5 mg TABLET PO (03:00)
[2024-02-19] MEDS: ipratropium-albuterol 3 mL Neb INHALATION ×5 (03:10→20:46)
--- NOTE | 2024-02-19 03:45 | PC.NURSE ---
Physician at Bedside Patient still breathing with abdominal muscles with new expiratory wheezes in the left lower lobes. Furthermore, patient's blood pressure MAP ranging from 59-63 with weak radial pulses present and remaining ashen in color. Automatic blood pressure not resulting at this time; multiple manual cuff pressures obtained. Dr. Wang contacted and at bedside. Order received to allow blood pressures to remain with a MAP of 60, administer 5 mg midodrine PO once, continue to hold off on administration of RBCs. Additional orders placed by physician for breathing treatments.
[2024-02-19] MEDS: sodium polystyrene sulfonate 15 gm/60 mL Btl PO ×2 (03:47→09:12)
[2024-02-19] MEDS: enoxaparin 80 mg/0.8 mL Syringe SUBCUT (03:47)
--- NOTE | 2024-02-19 04:15 | PC.NURSE ---
Albumin Patient becoming increasingly confused with consistently low blood pressures, currently 71/45. Dr. Wang notified and order received for 25 gm albumin IV once.
[2024-02-19] MEDS: albumin 25 G/100 ML BAG 60 G IV (04:28)
[2024-02-19 04:29] LABS: Glucose Point of Care 109 mg/dL (70-110)
[2024-02-19 05:16] LABS: Basophils % 0.3 %; Eosinophils # 0.1 10^3/uL (0.0-0.8); Eosinophils % 1.5 %; Hematocrit 22.2 % (37-53); Lymphocytes # 0.4 10^3/uL (0.8-4.8); Mean Corpuscular HGB Conc 30.2 g/dL (30-55); Mean Corpuscular Volume 96.1 fl (82-101); Mean Platelet Volume 9.4 fL (7.4-10.4); Monocytes # 0.8 10^3/uL (0.2-0.9); Monocytes % 10.2 %; Neutrophils # 6.44 10^3/uL (1.8-7.7); Neutrophils % 82.5 %; Nucleated Red Blood Cells % 0 %; Platelet Count 183 10^3/cmm (157-399); Red Blood Count 2.31 10^6/uL (3.85-5.65); Red Cell Distribution Width 15.4 % (12.1-15.1); White Blood Count 7.81 10^3/uL (3.29-11.43)
--- NOTE | 2024-02-19 05:40 | PC.NURSE ---
Physician Communication Patient's morning hemoglobin resulted at 6.7. Additionally, patient's blood pressure 67/[address] Wang contacted and order received for levophed drip.
[2024-02-19 05:54] LABS: Anion Gap 15.3 (5-19); Blood Urea Nitrogen 20 mg/dL (8-23); Calcium 8.4 mg/dL (8.5-10.5); Carbon Dioxide 25 mmol/L (22-29); Chloride 91 mmol/L (98-107); Creatinine Clr Calc Pharmacy 40.4946; Glucose 101 mg/dL (65-115); Magnesium 1.5 mg/dL (1.7-2.3); NT Pro B Type Natriuretic Pept 3178 pg/mL (0-450); Osmolality Calculated 265 mOsm/kg (285-295); Phosphorus 4.5 mg/dL (2.5-4.5); Potassium 5.3 mmol/L (3.5-5.1); Sodium 126 mmol/L (136-145)
[2024-02-19] MEDS: norepinephrine 4 MG/250 ML BAG 7.5 MG IV (05:57)
[2024-02-19] MEDS: linezolid premix 600 MG/300 ML PREMIX 300 MG IV ×2 (07:25→17:17)
[2024-02-19] MEDS: budesonide 0.5 mg/2 mL Neb INHALATION ×2 (07:47→20:46)
[2024-02-19 07:53] LABS: C Reactive Protein 8.2 mg/L (0.0-4.9)
[2024-02-19 08:22] LABS: Bilirubin Urine Negative (Negative); Blood Urine 2+ (Negative); Glucose Urine UA Negative (Normal); Ketones Urine Trace (Negative); Leukocyte Esterase Urine 2+ (Negative); Nitrate Urine Negative (Negative); Protein Urine 1+ (Negative); Urine Appearance Clear (CLEAR); Urine Color Yellow (Yellow)
[2024-02-19 08:25] LABS: Hyaline Casts Urine 33.49 /lpf; RBC Urine 21-50 /hpf (0-2); WBC Urine 51-100 /hpf (0-5)
[2024-02-19 08:34] LABS: Add Urine Culture? Yes; Bacteria Urine 1+ /hpf; Specific Gravity, Urine 1.046 (1.005-1.030)
--- NOTE | 2024-02-19 08:37 | PC.PHAR ---
Pts' sister-Misty helps set up pt medications. She states he is no longer taking Plavix 75mg. Removed from chart.
[2024-02-19] MEDS: cefepime 1,000 MG in sodium chloride 0.9% (plus) 50 ML 100 MG IV ×2 (08:45→18:33)
[2024-02-19] MEDS: sodium chloride 0.9% 1,000 ML 75 ML IV (08:52)
[2024-02-19] MEDS: calcium gluconate 0.9% NaCL 1 GM/50 ML PREMIX IV (09:11)
[2024-02-19] MEDS: magnesium sulfate premix 1 GM/100 ML PIGGYBACK IV (09:14)
[2024-02-19] MEDS: folic acid 1 mg Tablet PO (09:57)
[2024-02-19] MEDS: multivitamin therapeutic Tablet 1 TAB PO (09:57)
[2024-02-19] MEDS: thiamine 100 mg Tablet PO (09:57)
--- NOTE | 2024-02-19 11:24 | PC.NURSE ---
answer some question appropriately but continues to wiggle out of bed appears some pain left hip took po meds multiple ulceration on legs and toes left hip with edema noted
--- NOTE | 2024-02-19 13:13 | P.PN_ITS ---
Subjective 2 Subjective: No acute events noted since admission. Seen him at bedside this morning. He is alert, awake and oriented x 3 was able to provide history. Complained of left hip pain. Patient states he has history of low blood pressure at home with systolic blood pressure going as low as 60. He is also on Lasix at home for edema as needed. Medications: Reviewed: Yes Vitals/I&O/Wt Last Vital Signs Temp 98.9 F 02/19/24 12:45 Pulse 80 02/19/24 13:00 Resp 20 H 02/19/24 13:00 BP 106/57 02/19/24 12:45 Pulse Ox 95 02/19/24 13:00 O2 Del Method Nasal Cannula 02/19/24 11:20 O2 Flow Rate 3 02/19/24 11:20 FiO2 36 02/19/24 03:29 02/18/24 02/19/24 02/19/24 22:59 06:59 14:59 Intake Total 1999 2.25 / 2002.25 600 / 600 Output Total 300 / 300 300 / 300 Balance 1999 -297.75 / 1702.25 300 / 300 Weight last 48 hrs Weight 81.5 kg Weight 82 kg Weight 88.904 kg Physical Exam 2 Narrative: General: Patient is awake and alert. Chronically ill-appearing. Conversational. Head: Normocephalic. Atraumatic. EOM intact. Neck: No JVD. Cardiovascular: RRR. No gallops. No murmurs. 2+ pitting edema in bilateral lower extremities. Lungs: Prolonged expiratory phase. No wheezing. No crackles. On supplemental oxygen support. Skin: No jaundice. No rashes. Abdomen: Normal bowel sounds, abdomen soft and nontender. Genito Urinary: Genital exam not performed since complaints not related. Rectal: Rectal exam not performed since no symptoms indicated blood loss. Extremities: No cyanosis or clubbing. Left lower extremity is shorter and externally rotated. Musculoskeletal: No swollen or erythematous joints. Neurological: Moves all 4 extremities. No myoclonus. Urinary Catheter Management: Ashley: Cath Placed During This Visit: yes Reason for Continuing Indwelling Catheter: Accurate Measurement of Urinary Output in Critically Ill Patients Urinary Catheter Date of Insertion: 02/19/24 Urinary Catheter Time of Insertion: 00:12 Data 02/19/24 04:20 02/19/24 04:20 Micro: Microbiology 02/19/24 07:11 Blood Culture - Preliminary Blood SPECIMEN COLLECTED 02/19/24 07:17 Blood Culture - Preliminary Blood SPECIMEN COLLECTED A&P Assessment and plan (1) Closed fracture of left hip: Left hip fracture secondary to mechanical fall Strict bedrest Neurovascular checks Ashley catheter for prolonged immobilization Orthopedic surgery consulted, n.p.o. after midnight for evaluation Hold Plavix Multimodal pain control Bowel regiment Qualifiers: Encounter type: initial encounter Qualified Code(s): S72.002A - Fracture of unspecified part of neck of left femur, initial encounter for closed fracture (2) Anemia: Acute on chronic anemia, suspected anemia of chronic disease/inflammatory anemia Patient consents to transfusion 1 packed blood red cell May need Lasix if he becomes fluid overloaded with transfusion Backorder iron labs Repeat labs in a.m. (3) Acute hyponatremia: Acute on chronic hyponatremia, could be culprit to his recurrent falls He appears hypervolemic on exam Check urine electrolytes, TSH Repeat labs in a.m. (4) Hyperkalemia: Mild hyperkalemia Received 1 L IV fluid bolus in ED Telemetry monitoring Recheck labs in a.m. (5) CHF (congestive heart failure): Chronic heart failure with preserved ejection fraction of 55 to 60% Strict I's and O's Daily weights Patient is currently not in exacerbation, but remains at risk with blood transfusion tonight Qualifiers: Heart failure chronicity: chronic Heart failure type: diastolic Qualified Code(s): I50.32 - Chronic diastolic (congestive) heart failure (6) BPH (benign prostatic hyperplasia): Plan to place Ashley catheter Plan to continue home medications after his list is updated Qualifiers: Lower urinary tract symptom presence: symptoms present Lower urinary tract symptom detail: incomplete bladder emptying Qualified Code(s): N40.1 - Benign prostatic hyperplasia with lower urinary tract symptoms; R39.14 - Feeling of incomplete bladder emptying (7) CAD (coronary artery disease): Hold Plavix for surgery Plan to resume other home medications after list is updated Qualifiers: Coronary Disease-Associated Artery/Lesion type: [place] artery [place] vs. transplanted heart: [place] heart Associated angina: without angina Qualified Code(s): I25.10 - Atherosclerotic heart disease of [place] coronary artery without angina pectoris (8) Afib: Atrial fibrillation, unspecified type Check EKG for preop assessment Not on therapeutic anticoagulation per prior home medication list Qualifiers: Atrial fibrillation type: paroxysmal Qualified Code(s): I48.0 - Paroxysmal atrial fibrillation (9) Alcohol abuse: [facility] protocol Plan DVT prophylaxis: SCDs 02/19/24 Labs reviewed showed WBC 7.5, hemoglobin 6.7, platelets 183, sodium 126, potassium 5.3, creatinine 1.8 baseline is 1.5, magnesium 1.5 Chest x-ray negative Had a 2D echo in 07/20 which showed biatrial dilatation, ascending aortic dilatation, EF of 55 to 60% CT cervical spine and CT head negative Venous duplex left leg negative Will transfuse 1 unit PRBC Start IV fluids normal saline at 75 cc/h Replaced magnesium, Kayexalate and calcium gluconate given for hyperkalemia Continue to monitor him in ICU Will try to taper Levophed. Follow-up orthopedics for further recommendations Will start on cardiac diet today. Attestations 2 Medical Necessity Statement*: Patient presents with mechanical fall with severe hip pain, found to have left- sided hip fracture, hyponatremia, and acute on chronic anemia with expected hospitalization across 2 midnights for blood transfusion, hyponatremia workup, orthopedic evaluation and supportive care. Time Spent in Patient Care: 25 minutes Coding Level of Care Code Acute Code for Chg Fwd Diagnoses Closed fracture of left hip S72.002A Encounter type: initial encounter Anemia D64.9 Acute hyponatremia E87.1 Hyperkalemia E87.5 Chronic diastolic congestive heart failure I50.32 Heart failure chronicity: chronic Heart failure type: diastolic Benign prostatic hyperplasia with incomplete bladder emptying N40.1; R39.14 Lower urinary tract symptom presence: symptoms present Lower urinary tract symptom detail: incomplete bladder emptying Coronary artery disease involving [place] coronary artery of [place] heart without angina pectoris I25.10 Coronary Disease-Associated Artery/Lesion type: [place] artery [place] vs. transplanted heart: [place] heart Associated angina: without angina Paroxysmal atrial fibrillation I48.0 Atrial fibrillation type: paroxysmal Alcohol abuse F10.10 Time Spent (min) 25
[2024-02-19] MEDS: oxyCODONE-APAP 5-325 mg Tablet 1 TAB PO ×2 (13:37→23:25)
--- NOTE | 2024-02-19 16:52 | P.PN_ITS ---
Subjective 2 Subjective: Patient seen and examined this evening. Patient currently still in ICU no acute issues overnight. Recheck hemoglobin this morning was down to 6.7 patient received 1 unit of PRBC spoke with internal medicine who will recheck his hemoglobin with goals of trying to optimize him prior to surgical intervention tomorrow. Hold a.m. anticoagulation tomorrow. Plan for n.p.o. at midnight. Vitals/I&O/Wt Last Vital Signs Temp 98.9 F 02/19/24 12:45 Pulse 82 02/19/24 16:00 Resp 21 H 02/19/24 16:00 BP 66/55 02/19/24 16:00 Pulse Ox 91 02/19/24 16:00 O2 Del Method Nasal Cannula 02/19/24 15:30 O2 Flow Rate 3 02/19/24 15:30 FiO2 36 02/19/24 03:29 02/19/24 02/19/24 02/19/24 06:59 14:59 22:59 Intake Total 2. / 2001. 980.75 / 980.75 13.25 / 994.00 Output Total 300 / 300 300 / 300 Balance -297.75 / 1702.25 680.75 / 680.75 13.25 / 694.00 Weight last 48 hrs Weight 179 lb 10.828 oz Weight 180 lb 12.465 oz Weight 196 lb Physical Exam 2 Const: COMMON NORMALS: no acute distress and alert Resp: COMMON NORMALS: normal respiratory effort and No retractions Cardio: COMMON NORMALS: Peripheral pulses 2+ throughout PERIPHERAL PULSES: Peripheral pulses 2+ throughout Extremity: NARRATIVE EXTREMITY EXAM: Left lower extremity-leg is shortened and externally rotated. Positive logroll test. Tenderness to palpation left hip. compartments are soft and compressible. Patient can Wiggle toes. Toes are warm and well-perfused. Distal pulse palpable. Neuro: SENSORIUM/ORIENTATION: Yes alert Skin: GENERAL SKIN EXAM: dry skin Urinary Catheter Management: Ashley: Cath Placed During This Visit: yes Reason for Continuing Indwelling Catheter: Accurate Measurement of Urinary Output in Critically Ill Patients Urinary Catheter Date of Insertion: 02/19/24 Urinary Catheter Time of Insertion: 00:12 Data 02/20/24 04:14 02/20/24 04:14 Micro: Microbiology 02/19/24 07:11 Blood Culture - Preliminary Blood SPECIMEN COLLECTED 02/19/24 07:17 Blood Culture - Preliminary Blood SPECIMEN COLLECTED Xray Ortho: Radiologist's impression: Ordering Provider/Ordering MD: David Jewell MD Date of Service: 02/18/24 Procedure(s): XR hip LT 2-3V wo/w pel* [id number] Accession Number(s): [id number] Report Number: [id number] PROCEDURE INFORMATION: Exam: XR Left Hip Exam date and time: 02/18/2024 7:58 PM Age: 73 years old Clinical indication: Injury or trauma; Blunt trauma (contusions or hematomas); Patient HX: EMS arrival for fall at home. C/O left hip pain with external rotation TECHNIQUE: Imaging protocol: Radiologic exam of the left hip. Views: 2 or 3 views hip with pelvis when performed. COMPARISON: US renal BI* [id number] 11/20/2022 10:34 AM FINDINGS: Bones/joints: Angulated and displaced intertrochanteric fracture of the left. No dislocation. Soft tissues: Unremarkable. XR/XR hip LT 2-3V wo/w pel* [id number] IMPRESSION: As above. A&P Assessment and plan (1) Closed fracture of left hip: Qualifiers: Encounter type: initial encounter Qualified Code(s): S72.002A - Fracture of unspecified part of neck of left femur, initial encounter for closed fracture Plan Plan: -Imaging and Labs reviewed -Hospitalist on board for medical management. -VTE prophylaxis?hold a.m. anticoagulation, holding Plavix -Nonweightbearing on Left leg -Pain control -N.p.o. after midnight on Wednesday, February 18 -Plan for OR for left hip trochanteric femur nail on Wednesday. Patient is improving from electrolyte standpoin. Patient hemoglobint was 6.7 this a.m. received 1 unit PRBC per primary I did talk with the primary team of goals of having this rechecked later to make sure we need to get any more units and the patient prior to surgery just for better optimization as there will be some blood loss with the procedure. We talked about this in detail with the patient. We detailed the ins and outs procedure at this point in time he has a displaced left hip intertrochanteric femur fracture. He is currently in the ICU. An order for 1 I think to stabilize his hemoglobin as I believe he is continually going to have some bleeding from the fracture site until this is fixed and he has been on Plavix at baseline also to help for better pain control and earlier mobilization would recommend surgical intervention I did offer him nonoperative versus operative invention at this point in time he understands the risk benefits complication alternatives with surgery risk of surge include not limited to make a better make it worse hardware failure, persistent pain injury to nerves vessels or tendons, infection. Understanding risk of surgery patient elects proceed. All questions have been answered at this time. Will proceed to the OR tomorrow. Attestations 2 Medical Necessity Statement*: Ongoing care status post left hip intertrochanteric femur fracture requiring unit PRBC and medical management in the ICU. Coding Level of Care Code Acute Code for Chg Fwd Diagnoses Closed fracture of left hip S72.002A Encounter type: initial encounter Time Spent (min) 20
[2024-02-19 17:20] LABS: Basophils % 0.2 %; Eosinophils % 0.2 %; Lymphocytes # 0.6 10^3/uL (0.8-4.8); Lymphocytes % 7.5 %; Mean Corpuscular Hemoglobin 28.4 pg (27-33); Mean Corpuscular Volume 91.7 fl (82-101); Mean Platelet Volume 9.2 fL (7.4-10.4); Monocytes # 1.3 10^3/uL (0.2-0.9); Monocytes % 14.9 %; Neutrophils # 6.52 10^3/uL (1.8-7.7); Nucleated Red Blood Cells % 0 %; Platelet Count 180 10^3/cmm (157-399); Red Blood Count 2.18 10^6/uL (3.85-5.65); Red Cell Distribution Width 15.6 % (12.1-15.1); White Blood Count 8.48 10^3/uL (3.29-11.43)
[2024-02-19] MEDS: sodium chloride 0.9% 100 mL Bag 50 ML IV ×2 (19:37→19:38)
[2024-02-19] MEDS: norepinephrine 4 MG/250 ML BAG 15 MG IV (20:54)
[2024-02-19] MEDS: sennosides 8.6 mg Tablet 17.2 MG PO (21:02)
[2024-02-20] VITALS (99 sets, daily range): BP systolic 82–165; BP diastolic 41–133; PULSE 74–99; RESP 7–30; TEMP 36.3–37.2; O2SAT 71–100
[2024-02-20 00:05] LABS: Hematocrit 21.5 % (37-53)
[2024-02-20] MEDS: ipratropium-albuterol 3 mL Neb INHALATION ×5 (00:34→15:24)
[2024-02-20] MEDS: sodium chloride 0.9% 1,000 ML 75 ML IV ×2 (02:40→16:42)
[2024-02-20 04:37] LABS: Basophils % 0.3 %; Eosinophils % 0.3 %; Hematocrit 23.5 % (37-53); Lymphocytes # 0.7 10^3/uL (0.8-4.8); Lymphocytes % 6.5 %; Mean Corpuscular HGB Conc 30.2 g/dL (30-55); Mean Corpuscular Hemoglobin 29.7 pg (27-33); Mean Corpuscular Volume 98.3 fl (82-101); Mean Platelet Volume 9.4 fL (7.4-10.4); Monocytes # 1.6 10^3/uL (0.2-0.9); Monocytes % 14.7 %; Neutrophils # 8.18 10^3/uL (1.8-7.7); Neutrophils % 77.8 %; Nucleated Red Blood Cells % 0 %; Platelet Count 180 10^3/cmm (157-399); Red Blood Count 2.39 10^6/uL (3.85-5.65); Red Cell Distribution Width 15.8 % (12.1-15.1); White Blood Count 10.51 10^3/uL (3.29-11.43)
[2024-02-20 05:05] LABS: Anion Gap 17.5 (5-19); Blood Urea Nitrogen 25 mg/dL (8-23); Calcium 8.2 mg/dL (8.5-10.5); Carbon Dioxide 22 mmol/L (22-29); Chloride 93 mmol/L (98-107); Creatinine Clr Calc Pharmacy 42.7704; Glucose 119 mg/dL (65-115); Magnesium 1.6 mg/dL (1.7-2.3); Osmolality Calculated 272 mOsm/kg (285-295); Potassium 4.5 mmol/L (3.5-5.1); Sodium 128 mmol/L (136-145)
[2024-02-20] MEDS: linezolid premix 600 MG/300 ML PREMIX 300 MG IV ×2 (05:50→17:21)
[2024-02-20] MEDS: cefepime 1,000 MG in sodium chloride 0.9% (plus) 50 ML 100 MG IV ×2 (06:30→18:23)
[2024-02-20] MEDS: budesonide 0.5 mg/2 mL Neb INHALATION (08:01)
[2024-02-20] MEDS: folic acid 1 mg Tablet PO (08:56)
[2024-02-20] MEDS: thiamine 100 mg Tablet PO (08:56)
[2024-02-20] MEDS: multivitamin therapeutic Tablet 1 TAB PO (08:56)
--- NOTE | 2024-02-20 10:54 | P.PN_ITS ---
Subjective 2 Subjective: No acute overnight events noted. Seen him at bedside this morning, complaining of left hip pain, otherwise no new complaints Medications: Reviewed: Yes Vitals/I&O/Wt Last Vital Signs Temp 97.4 F L 02/20/24 08:52 Pulse 91 02/20/24 10:15 Resp 19 H 02/20/24 10:15 BP 111/72 02/20/24 10:15 Pulse Ox 87 L 02/20/24 10:15 O2 Del Method Nasal Cannula 02/20/24 08:02 O2 Flow Rate 3 02/20/24 08:02 FiO2 36 02/19/24 03:29 02/19/24 02/20/24 02/20/24 22:59 06:59 14:59 Intake Total 1805.00 / 2785.75 952.875 / 3738.625 50 / 50 Output Total 350 / 650 325 / 975 Balance 1455.00 / 2135.75 627.875 / 2763.625 50 / 50 Weight last 48 hrs Weight 83.824 kg Weight 81.5 kg Weight 82 kg Weight 88.904 kg Physical Exam 2 Narrative: General: Patient is awake and alert. Chronically ill-appearing. Conversational. Head: Normocephalic. Atraumatic. EOM intact. Neck: No JVD. Cardiovascular: RRR. No gallops. No murmurs. 2+ pitting edema in bilateral lower extremities. Lungs: Prolonged expiratory phase. No wheezing. No crackles. On supplemental oxygen support. Skin: No jaundice. No rashes. Abdomen: Normal bowel sounds, abdomen soft and nontender. Genito Urinary: Genital exam not performed since complaints not related. Rectal: Rectal exam not performed since no symptoms indicated blood loss. Extremities: No cyanosis or clubbing. Left lower extremity is shorter and externally rotated. Musculoskeletal: No swollen or erythematous joints. Neurological: Moves all 4 extremities. No myoclonus. Urinary Catheter Management: Ashley: Cath Placed During This Visit: yes Reason for Continuing Indwelling Catheter: Accurate Measurement of Urinary Output in Critically Ill Patients Urinary Catheter Date of Insertion: 02/19/24 Urinary Catheter Time of Insertion: 00:12 Data 02/20/24 04:14 02/20/24 04:14 Micro: Microbiology 02/19/24 07:15 Urine Culture - Preliminary Urine,Clean Catch 02/19/24 07:17 Blood Culture - Preliminary Blood NEGATIVE TO DATE 02/19/24 07:11 Blood Culture - Preliminary Blood NEGATIVE TO DATE A&P Assessment and plan (1) Closed fracture of left hip: Left hip fracture secondary to mechanical fall Strict bedrest Neurovascular checks Ashley catheter for prolonged immobilization Orthopedic surgery consulted, n.p.o. after midnight for evaluation Hold Plavix Multimodal pain control Bowel regiment Qualifiers: Encounter type: initial encounter Qualified Code(s): S72.002A - Fracture of unspecified part of neck of left femur, initial encounter for closed fracture (2) Anemia: Acute on chronic anemia, suspected anemia of chronic disease/inflammatory anemia Patient consents to transfusion 1 packed blood red cell May need Lasix if he becomes fluid overloaded with transfusion Backorder iron labs Repeat labs in a.m. (3) Acute hyponatremia: Acute on chronic hyponatremia, could be culprit to his recurrent falls He appears hypervolemic on exam Check urine electrolytes, TSH Repeat labs in a.m. (4) Hyperkalemia: Mild hyperkalemia Received 1 L IV fluid bolus in ED Telemetry monitoring Recheck labs in a.m. (5) CHF (congestive heart failure): Chronic heart failure with preserved ejection fraction of 55 to 60% Strict I's and O's Daily weights Patient is currently not in exacerbation, but remains at risk with blood transfusion tonight Qualifiers: Heart failure chronicity: chronic Heart failure type: diastolic Qualified Code(s): I50.32 - Chronic diastolic (congestive) heart failure (6) BPH (benign prostatic hyperplasia): Plan to place Ashley catheter Plan to continue home medications after his list is updated Qualifiers: Lower urinary tract symptom presence: symptoms present Lower urinary tract symptom detail: incomplete bladder emptying Qualified Code(s): N40.1 - Benign prostatic hyperplasia with lower urinary tract symptoms; R39.14 - Feeling of incomplete bladder emptying (7) CAD (coronary artery disease): Hold Plavix for surgery Plan to resume other home medications after list is updated Qualifiers: Coronary Disease-Associated Artery/Lesion type: [place] artery [place] vs. transplanted heart: [place] heart Associated angina: without angina Qualified Code(s): I25.10 - Atherosclerotic heart disease of [place] coronary artery without angina pectoris (8) Afib: Atrial fibrillation, unspecified type Check EKG for preop assessment Not on therapeutic anticoagulation per prior home medication list Qualifiers: Atrial fibrillation type: paroxysmal Qualified Code(s): I48.0 - Paroxysmal atrial fibrillation (9) Alcohol abuse: [facility] protocol Plan DVT prophylaxis: SCDs 02/19/24 Labs reviewed showed WBC 7.5, hemoglobin 6.7, platelets 183, sodium 126, potassium 5.3, creatinine 1.8 baseline is 1.5, magnesium 1.5 Chest x-ray negative Had a 2D echo in 07/20 which showed biatrial dilatation, ascending aortic dilatation, EF of 55 to 60% CT cervical spine and CT head negative Venous duplex left leg negative Will transfuse 1 unit PRBC Start IV fluids normal saline at 75 cc/h Replaced magnesium, Kayexalate and calcium gluconate given for hyperkalemia Continue to monitor him in ICU Will try to taper Levophed. Follow-up orthopedics for further recommendations Will start on cardiac diet today. 02/20/24 Labs reviewed, hemoglobin 7.1, s/p 2 units PRBC. Creatinine trending down to 1.7. Blood pressure trend noted, currently blood pressure 97/52 which is his baseline at home Going for right hip surgery this afternoon. Plan to transfuse 1 more unit of packed red blood cells. Anticoagulation on hold for surgery. Still continues to have hyponatremia at 128. On IV normal saline at 75 cc/h. Attestations 2 Medical Necessity Statement*: Patient presents with mechanical fall with severe hip pain, found to have left- sided hip fracture, hyponatremia, and acute on chronic anemia with expected hospitalization across 2 midnights for blood transfusion, hyponatremia workup, orthopedic evaluation and supportive care. Time Spent in Patient Care: 25 minutes Coding Level of Care Code Acute Code for Chg Fwd Diagnoses Closed fracture of left hip S72.002A Encounter type: initial encounter Anemia D64.9 Acute hyponatremia E87.1 Hyperkalemia E87.5 Chronic diastolic congestive heart failure I50.32 Heart failure chronicity: chronic Heart failure type: diastolic Benign prostatic hyperplasia with incomplete bladder emptying N40.1; R39.14 Lower urinary tract symptom presence: symptoms present Lower urinary tract symptom detail: incomplete bladder emptying Coronary artery disease involving [place] coronary artery of [place] heart without angina pectoris I25.10 Coronary Disease-Associated Artery/Lesion type: [place] artery [place] vs. transplanted heart: [place] heart Associated angina: without angina Paroxysmal atrial fibrillation I48.0 Atrial fibrillation type: paroxysmal Alcohol abuse F10.10 Time Spent (min) 25
--- NOTE | 2024-02-20 11:30 | XR_ITS ---
WS: [id number] C-[facility] RADIOGRAPHS LEFT HIP; 6 IMAGES HISTORY: LT TFN; OR PICS COMPARISON: 02/20/2024 radiographs Initial image demonstrates an intratrochanteric fracture in good alignment on this single AP projecti on. Subsequent images demonstrate well displaced gamma nail and proximal intratrochanteric lilian with d istal locking screw. Fracture in good alignment. XR/XR hip LT 2-3V wo/w pel* [id number] IMPRESSION: Intraoperative imaging during ORIF LEFT hip fracture.
--- NOTE | 2024-02-20 11:46 | P.HPUD_ITS ---
Surgery/Procedure H&P Update DATE OF PROCEDURE: February 20, 2024 DATE H&P PERFORMED: 02/18/24 H&P UPDATE INFORMATION: I have reviewed H&P completed within last 30 days, I have examined patient prior to procedure and No changes to prior documentation CHANGES TO PREVIOUS DOCUMENTATION: Patient has been medically optimized prior to surgical intervention and cleared to proceed with surgical intervention by the internal medicine team and an esthesia. Patient received an additional unit of PRBC in preparation for surgery this morning and now ready to proceed with surgical intervention this afternoon. Plan will be for left hip trochanteric femur nail. I did review the consent with the patient he understands and agrees to proceed with current plan. He does have tremors and he wished to try and signed it on his own given it was significant tremors we did a verbal consent as well with him with nursing staff at bedside and signed the left hip with plan for left hip procedure. Patient understands agrees to current plan. Questions answered. Proceed with surgery today. Patient will go from ICU to surgery. PREOP DIAGNOSIS: Left hip displaced intertrochanteric femur fracture PRIMARY INDICATION FOR PROCEDURE: Left hip displaced intertrochanteric femur fracture PLANNED PROCEDURE: Operation Date: 02/20/24 08:30 Proposed Procedures p Trochanteric Femoral Nail(Left) - Baljinder Varela DO
--- NOTE | 2024-02-20 11:48 | XRR_ITS ---
PROCEDURE INFORMATION: Exam: XR Left Femur Exam date and time: 02/20/2024 11:52 AM Age: 73 years old Clinical indication: Pain; Hip; Left; Additional info: Preop left hip it fracture TECHNIQUE: Imaging protocol: Radiologic exam of the left femur. Views: 2 views. COMPARISON: CT angio abd aorta runof [id number] 01/17/2021 10:29 AM FINDINGS: Bones/joints: Impacted, comminuted, slightly displaced fracture intertrochanteric proximal left femur with resultant slight varus deformity. Mild arthritis left patellofemoral articulation. Small-moderate left knee joint effusion. Otherwise, unremarkable. Soft tissues: Otherwise, unremarkable soft tissues. Vasculature: Small amount of arterial calcification. XR/XR femur LT min 2V* [id number] IMPRESSION: 1. Impacted, comminuted, slightly displaced fracture intertrochanteric proximal left femur with resultant slight varus deformity. 2. Additional details as above.
--- NOTE | 2024-02-20 11:50 | XRR_ITS ---
PROCEDURE INFORMATION: Exam: XR Pelvis Exam date and time: 02/20/2024 11:52 AM Age: 73 years old Clinical indication: Hip pain; Left hip; Additional info: Left hip FX, initial hip series didnt include ap pelvis TECHNIQUE: Imaging protocol: Radiologic exam of the pelvis. Views: 1 or 2 view. COMPARISON: CT abdomen pelvis w con* [id number] 02/18/2024 10:15 PM FINDINGS: Bones/joints: Comminuted, impacted, slightly displaced fracture intertrochanteric left femur with resultant slight varus deformity. Spondylosis lower lumbar spine. Otherwise, unremarkable. Soft tissues: Unremarkable. XR/XR pelvis 1-2V* [id number] IMPRESSION: Comminuted, impacted, slightly displaced fracture intertrochanteric left femur with resultant slight varus deformity.
[2024-02-20] MEDS: ceFAZolin 2,000 mg SDV 2000 MG IVP (12:58)
[2024-02-20] MEDS: tranexamic acid 1,000 mg/10mL SDV 1000 MG IV (13:00)
[2024-02-20 14:06] LABS: HIV 1 & 2 Antibody Non-Reactive (Non-Reactiv); HIV 1 & 2 Antigen Non-Reactive (Non-Reactiv)
--- NOTE | 2024-02-20 14:09 | XRR_ITS ---
PROCEDURE INFORMATION: Exam: XR Left Hip Exam date and time: 02/20/2024 2:27 PM Age: 73 years old Clinical indication: Screening exam; Prior surgery; Surgery date: Post-operative (0-2 days); Surgery type: Lt tfn; Additional info: S/P L hip troch nail, ap pelvis, ap left hip, crosstable lat, make sure to include TECHNIQUE: Imaging protocol: Radiologic exam of the left hip. Views: 2 or 3 views hip with pelvis when performed. COMPARISON: CR XR pelvis 1-2V* [id number] 02/20/2024 11:52 AM FINDINGS: Bones/joints: Internal fixation of the comminuted left intertrochanteric femoral fracture is performed today with fixation hardware projecting in satisfactory position. Main fracture fragments are in near anatomic alignment, although, there is still considerable superior displacement of the lesser trochanter. Otherwise, unremarkable. Soft tissues: Lateral skin nazia and soft tissue gas consistent with the immediate postoperative state. Otherwise, unremarkable soft tissues. Vasculature: Unchanged arterial calcification. XR/XR hip LT 2-3V wo/w pel* [id number] IMPRESSION: Satisfactory immediate postoperative appearance of internal fixation left femoral intertrochanteric fracture.
--- NOTE | 2024-02-20 14:11 | W.PM.BPON ---
Date of Procedure: 02/20/2024 Surgeon: Baljinder Varela DO Manager Customer Service(s): Jarred Varela PA-C Procedure(s) performed: Left hip trochanteric femur nail Findings of the procedure(s): Patient was found to have severely comminuted left hip intertrochanteric femur fracture. Underwent procedure as planned without issues or complications. Patient was taken back to ICU postoperatively. Estimated blood loss: 100 mL Specimen(s) removed: None Post-operative diagnosis: Left hip intertrochanteric femur fracture
--- NOTE | 2024-02-20 14:13 | P.OP_ITS ---
Operative Report Date of procedure: February 20, 2024 Surgeon: Baljinder Varela DO Rewrite Editor: Jarred Varela PA-C: PA was necessary for assistance in this case with leg positioning, reduction as well as assistance in implantation wound closure and dressing application. Procedure: Procedure: Post-op diagnosis: Left?displaced intertrochanteric femur fracture Procedure done: ?Left?intertrochanteric femur fracture ORIF with cephalomedullary?nail Implants: [place] gamma?nail?short 11 mm x 180 mm x 125 degree Lag screw 10.5 mm x 115?mm Distal locking screw 5 mm x?40?mm Setscrew 1 removed and new 1 applied Surgeon: Baljinder Varela DO Estimated blood loss: 100 mL IV fluids: 200 mL Urine output: 250 mL Complications: See operative report Findings: See operative report narrative Condition: stable Disposition: Floor Brief History: Patient sustained a fall and was found to have a Left intertrochanteric hip fx.?Pt has?been unable to bear weight, Left?hip/lower extremity shortened and externally rotated.? At this point time Pt?was admitted by the hospitalist team and orthopedics was consulted.??Refer to consult note for detailed HPI.??We talked about treatment options as far as nonoperative and operative intervention. Recommend?Left?hip?trochanteric femur?nail.??At this point time patient would like to pursue surgical intervention for benefits of pain control and earlier mobilization.?? Patient understands the ins and outs of procedure, the risk benefits complication alternatives of surgical nonsurgical treatment options.? Patient required medical prior to proceeding with surgical intervention. Once he was medically optimized for surgery plan was to proceed with surgical intervention. Understanding risk of surgery?pt?agrees to proceed with surgical intervention all questions answered.? Consent obtained. Procedure: Patient seen evaluated in the preoperative holding area.? Consent was obtained.? Correct extremity was then marked.? Once cleared by anesthesia and the hospitalist team patient was taken back to the operative suite.? Patient underwent anesthesia per the anesthesia department.? Once appropriately anesthetized patient was placed on a fracture [place] table.? Patient was appropriately secured to the bed.? All bony prominences were well-padded.? At this point time patient received appropriate preoperative antibiotics.? Final t imeout was performed.? Prior to beginning surgery a standard closed reduction maneuver was placed on the [place] table and large C-arm was brought in.? After performing a closed reduction maneuver there was able to achieve satisfactory reduction of Left?intertrochanteric femur fracture. This did require some translation and under support of the distal portion of the femur shaft having a support placed from posterior to anterior to to allow a posterior to anterior translation force and then plan was for assistance with my PA utilizing a mallet to hold the proximal head and neck fragment giving a anterior to posterior force to keep this in good alignment while I placed the nail. Given the fracture pattern this appeared to be amendable for a short trochanteric femur nail. This point time the left lower extremity was then prepped and draped in standard orthopedic fashion. A standard longitudinal incision was made just proximal to the greater?trochanter roughly 4 cm in length sharp scalpel vision was made through skin and subcutaneous tissue.? I then utilized a blunt [place] to split? fascia and mobilized directly down to the greater?trochanter.? I then inserted my starting guidewire which was placed appropriate starting position the tip of the greater?trochanter.? This was advanced in AP and lateral films to be in center center position and advanced to the level lesser?trochanter.? This was confirmed to be in center center position on AP and lateral imaging.? Once this was done I then introduced my opening reamer which was then subsequently guide pin removed.? I selected a 11 mm x 180 mm x 125 degree. At this point time the?nail?was then loaded onto the HEX[place] gamma?trochanteric?nail?guide.? This was placed within the canal and confirmed with XR and the setscrew was then gen tly placed not locked.? The?nail?was then impacted to appropriate depth .? At this point in time I utilized multiple fluoroscopic imaging to confirm satisfactory holding of the reduction with my assistant dean of students holding a mallet anteriorly over the proximal fracture fragment as well as assisting the post that we used for a posterior to anterior this was able for us to hold a reduction while I placed the guidewire for the lag screw. At this point time I then inserted my lag screw guide and subsequently made a small incision through skin and subcutaneous tissue splitting the IT band longitudinally and the guide was placed directly onto bone.? Next I then subsequently placed the guidewire into satisfactory position in the head with an appropriate tip to apex distance this was confirmed with multiple orthogonal images.? Once I was satisfied with my planned lag screw placement I then measured which was?115?mm.? I then set my cannulated drill and subsequently reamed this into the head at appropriate depth.? I then had my rep open the 10.5 mm x?115?mm lag screw which was then opened on the back table and subsequently screwed into place over my cannulated drill guide.? This was placed with satisfactory tip to apex distance.? Next I then utilized the compressing device and subsequently compressed my fracture after I let off traction.? This had excellent fracture compression and opposition and closing down to my fracture line.? Next I then locked the?nail?by locking my the first set screw did not have satisfactory fixation we backed this out and placed a new set screw which had excellent fixation and move the whole nail as a unit. This point time the guidewire as well as the sleeve was then removed.? Next I plan for statically locking the?nail?distally.? This triple sleeve was then placed a small stab incision was made blunt dissection directly down to bone and the guide sleeve was placed and locked directly onto the bone.? I then inserted the drill bit and subsequently drilled bicortically measured appropriate length screw and then placed a 40?mm distal interlocking screw and had excellent fixation was appropriate length.? This point time is completed my construct I remove the outer jig and took final images of AP and lateral of the Left?intertrochanteric femur fracture which showed stable reduction and stable fixation.? Incision was then thoroughly irrigated.? Hemostasis was maintained with electrocautery.? I then once again thoroughly irrigated the incisions and then subsequently closed in layered fashion of 0 Vicryl 2-0 Vicryl and nazia.? Silverlon dressings applied.? Patient was then awakened from anesthesia transported onto the hospital bed and taken to PACU in stable condition.? Patient tolerated procedure without complications. Disposition: Patient taken back to ICU in stable condition. Postoperatively,? Patient to receive appropriate discharge instructions as well as pain medication DVT prophylaxis postoperatively.? Pt will be allowed weightbearing as tolerated Left?lower extremity.? Will receive appropriate postoperative antibiotics, PT/OT.? Patient to follow-up in the orthopedic office in 2 weeks.? Patient understands and agrees with current plan.? All questions answered.
[2024-02-20 14:19] LABS: Hepatitis C Virus Antibody Non-Reactive (Nonreactive)
[2024-02-20 14:26] LABS: Hepatitis B Surface Antigen Non-Reactive (Nonreactive)
[2024-02-20] MEDS: acetaminophen 1,000 MG/100 ML PIGGYBACK 400 MG IV (16:42)
[2024-02-20] MEDS: ketorolac 30 mg/mL INJ IVP (16:43)
[2024-02-20] MEDS: chlorhexidine gluconate 0.12% Btl 473 mL 30 ML MUCOUS MEM ×2 (17:21→21:04)
[2024-02-20] MEDS: mupirocin oint 22 gm 1 APPLIC NASAL (17:21)
[2024-02-20 18:08] LABS: Basophils % 0.1 %; Eosinophils % 0.1 %; Hematocrit 22.5 % (37-53); Lymphocytes # 0.3 10^3/uL (0.8-4.8); Lymphocytes % 2.5 %; Mean Corpuscular HGB Conc 32.4 g/dL (30-55); Mean Corpuscular Hemoglobin 29.3 pg (27-33); Mean Corpuscular Volume 90.4 fl (82-101); Mean Platelet Volume 9.4 fL (7.4-10.4); Monocytes # 0.9 10^3/uL (0.2-0.9); Monocytes % 8.5 %; Neutrophils # 8.84 10^3/uL (1.8-7.7); Neutrophils % 88.3 %; Nucleated Red Blood Cells % 0 %; Platelet Count 168 10^3/cmm (157-399); Red Blood Count 2.49 10^6/uL (3.85-5.65); Red Cell Distribution Width 15.6 % (12.1-15.1); White Blood Count 10.01 10^3/uL (3.29-11.43)
--- NOTE | 2024-02-20 18:23 | PC.NURSE ---
doctor aware sleeping
[2024-02-20 18:30] LABS: Anion Gap 15.5 (5-19); Blood Urea Nitrogen 27 mg/dL (8-23); Calcium 7.7 mg/dL (8.5-10.5); Carbon Dioxide 24 mmol/L (22-29); Chloride 95 mmol/L (98-107); Creatinine Clr Calc Pharmacy 43.2641; Glucose 183 mg/dL (65-115); Osmolality Calculated 280 mOsm/kg (285-295); Potassium 4.5 mmol/L (3.5-5.1); Sodium 130 mmol/L (136-145)
[2024-02-20] MEDS: sennosides 8.6 mg Tablet 17.2 MG PO (21:04)
[2024-02-21] VITALS (55 sets, daily range): BP systolic 98–137; BP diastolic 54–85; PULSE 75–99; RESP 12–30; TEMP 36.6–36.9; O2SAT 86–100
[2024-02-21] MEDS: ipratropium-albuterol 3 mL Neb INHALATION ×7 (00:25→23:24)
[2024-02-21] MEDS: tranexamic acid 1,000 MG/100 ML PREMIX 600 MG IV (00:46)
[2024-02-21 04:31] LABS: Basophils % 0.1 %; Hematocrit 22.8 % (37-53); Lymphocytes # 0.3 10^3/uL (0.8-4.8); Lymphocytes % 3.4 %; Mean Corpuscular Hemoglobin 29.1 pg (27-33); Mean Corpuscular Volume 90.8 fl (82-101); Mean Platelet Volume 9.2 fL (7.4-10.4); Monocytes % 10.7 %; Neutrophils % 85.4 %; Nucleated Red Blood Cells % 0 %; Platelet Count 177 10^3/cmm (157-399); Red Blood Count 2.51 10^6/uL (3.85-5.65); Red Cell Distribution Width 15.7 % (12.1-15.1)
[2024-02-21 04:48] LABS: Magnesium 1.7 mg/dL (1.7-2.3)
[2024-02-21 04:50] LABS: Blood Urea Nitrogen 28 mg/dL (8-23); Carbon Dioxide 23 mmol/L (22-29); Chloride 94 mmol/L (98-107); Creatinine Clr Calc Pharmacy 43.2641; Glucose 113 mg/dL (65-115); Osmolality Calculated 276 mOsm/kg (285-295); Sodium 130 mmol/L (136-145)
[2024-02-21 04:52] LABS: Anion Gap 17.7 (5-19); Potassium 4.7 mmol/L (3.5-5.1)
[2024-02-21] MEDS: sodium chloride 0.9% 1,000 ML 75 ML IV ×2 (05:14→17:55)
[2024-02-21] MEDS: oxyCODONE-APAP 5-325 mg Tablet 1 TAB PO ×3 (06:21→17:53)
[2024-02-21] MEDS: linezolid premix 600 MG/300 ML PREMIX 300 MG IV (06:22)
[2024-02-21] MEDS: cefepime 1,000 MG in sodium chloride 0.9% (plus) 50 ML 100 MG IV (06:22)
[2024-02-21] MEDS: mupirocin oint 22 gm 1 APPLIC NASAL ×2 (08:28→17:53)
[2024-02-21] MEDS: folic acid 1 mg Tablet PO (08:28)
[2024-02-21] MEDS: docusate sodium 100 mg Capsule PO ×2 (08:28→17:53)
[2024-02-21] MEDS: thiamine 100 mg Tablet PO (08:28)
[2024-02-21] MEDS: chlorhexidine gluconate 0.12% Btl 473 mL 30 ML MUCOUS MEM ×2 (08:28→22:26)
[2024-02-21] MEDS: iron polysaccharide complex 150 mg Capsule PO ×2 (08:28→17:53)
[2024-02-21] MEDS: multivitamin therapeutic Tablet 1 TAB PO (08:28)
[2024-02-21] MEDS: calcium carb-vit d 600mg/400unit 1 Tablet 1 EACH PO ×2 (08:28→17:53)
[2024-02-21] MEDS: budesonide 0.5 mg/2 mL Neb INHALATION ×2 (09:37→19:56)
--- NOTE | 2024-02-21 14:29 | P.PN_ITS ---
Subjective 2 Subjective: No acute overnight events noted. Seen him at bedside this morning, denies any acute complaints. He was able to get out of bed to chair with the help of PT. Medications: Reviewed: Yes Vitals/I&O/Wt Last Vital Signs Temp 98.4 F 02/21/24 12:00 Pulse 93 02/21/24 13:32 Resp 23 H 02/21/24 12:00 BP 115/68 02/21/24 12:00 Pulse Ox 92 02/21/24 12:00 O2 Del Method Nasal Cannula 02/21/24 12:00 O2 Flow Rate 4 02/21/24 12:00 FiO2 36 02/21/24 03:27 02/20/24 02/21/24 02/21/24 22:59 06:59 14:59 Intake Total 1242.5 / 1662.5 1110 / 2772.5 975 / 975 Output Total 550 / 900 Balance 1242.5 / 1312.5 560 / 1872.5 975 / 975 Weight last 48 hrs Weight 84.5 kg Weight 83.824 kg Physical Exam 2 Narrative: General: Patient is awake and alert. Chronically ill-appearing. Conversational. Head: Normocephalic. Atraumatic. EOM intact. Neck: No JVD. Cardiovascular: RRR. No gallops. No murmurs. 2+ pitting edema in bilateral lower extremities. Lungs: Prolonged expiratory phase. No wheezing. No crackles. On supplemental oxygen support. Skin: No jaundice. No rashes. Abdomen: Normal bowel sounds, abdomen soft and nontender. Genito Urinary: Genital exam not performed since complaints not related. Rectal: Rectal exam not performed since no symptoms indicated blood loss. Extremities: No cyanosis or clubbing. Left lower extremity is shorter and externally rotated. Musculoskeletal: No swollen or erythematous joints. Neurological: Moves all 4 extremities. No myoclonus. Urinary Catheter Management: Ashley: Cath Placed During This Visit: yes Reason for Continuing Indwelling Catheter: Accurate Measurement of Urinary Output in Critically Ill Patients Urinary Catheter Date of Insertion: 02/19/24 Urinary Catheter Time of Insertion: 00:12 Data 02/21/24 04:12 02/21/24 04:12 Micro: Microbiology 02/19/24 07:15 Urine Culture - Final Urine,Clean Catch A&P Assessment and plan (1) Closed fracture of left hip: Left hip fracture secondary to mechanical fall Strict bedrest Neurovascular checks Ashley catheter for prolonged immobilization Orthopedic surgery consulted, n.p.o. after midnight for evaluation Hold Plavix Multimodal pain control Bowel regiment Qualifiers: Encounter type: initial encounter Qualified Code(s): S72.002A - Fracture of unspecified part of neck of left femur, initial encounter for closed fracture (2) Anemia: Acute on chronic anemia, suspected anemia of chronic disease/inflammatory anemia Patient consents to transfusion 1 packed blood red cell May need Lasix if he becomes fluid overloaded with transfusion Backorder iron labs Repeat labs in a.m. (3) Acute hyponatremia: Acute on chronic hyponatremia, could be culprit to his recurrent falls He appears hypervolemic on exam Check urine electrolytes, TSH Repeat labs in a.m. (4) Hyperkalemia: Mild hyperkalemia Received 1 L IV fluid bolus in ED Telemetry monitoring Recheck labs in a.m. (5) CHF (congestive heart failure): Chronic heart failure with preserved ejection fraction of 55 to 60% Strict I's and O's Daily weights Patient is currently not in exacerbation, but remains at risk with blood transfusion tonight Qualifiers: Heart failure chronicity: chronic Heart failure type: diastolic Qualified Code(s): I50.32 - Chronic diastolic (congestive) heart failure (6) BPH (benign prostatic hyperplasia): Plan to place Ashley catheter Plan to continue home medications after his list is updated Qualifiers: Lower urinary tract symptom presence: symptoms present Lower urinary tract symptom detail: incomplete bladder emptying Qualified Code(s): N40.1 - Benign prostatic hyperplasia with lower urinary tract symptoms; R39.14 - Feeling of incomplete bladder emptying (7) CAD (coronary artery disease): Hold Plavix for surgery Plan to resume other home medications after list is updated Qualifiers: Coronary Disease-Associated Artery/Lesion type: [place] artery [place] vs. transplanted heart: [place] heart Associated angina: without angina Qualified Code(s): I25.10 - Atherosclerotic heart disease of [place] coronary artery without angina pectoris (8) Afib: Atrial fibrillation, unspecified type Check EKG for preop assessment Not on therapeutic anticoagulation per prior home medication list Qualifiers: Atrial fibrillation type: paroxysmal Qualified Code(s): I48.0 - Paroxysmal atrial fibrillation (9) Alcohol abuse: CIWA protocol Plan DVT prophylaxis: SCDs 02/19/24 Labs reviewed showed WBC 7.5, hemoglobin 6.7, platelets 183, sodium 126, potassium 5.3, creatinine 1.8 baseline is 1.5, magnesium 1.5 Chest x-ray negative Had a 2D echo in 07/20 which showed biatrial dilatation, ascending aortic dilatation, EF of 55 to 60% CT cervical spine and CT head negative Venous duplex left leg negative Will transfuse 1 unit PRBC Start IV fluids normal saline at 75 cc/h Replaced magnesium, Kayexalate and calcium gluconate given for hyperkalemia Continue to monitor him in ICU Will try to taper Levophed. Follow-up orthopedics for further recommendations Will start on cardiac diet today. 02/20/24 Labs reviewed, hemoglobin 7.1, s/p 2 units PRBC. Creatinine trending down to 1.7. Blood pressure trend noted, currently blood pressure 97/52 which is his baseline at home Going for right hip surgery this afternoon. Plan to transfuse 1 more unit of packed red blood cells. Anticoagulation on hold for surgery. Still continues to have hyponatremia at 128. On IV normal saline at 75 cc/h. 02/21/24 Labs reviewed, hemoglobin stable at 7.3, creatinine stable at 1.7, baseline is 1.5. He is still on IV Zyvox and cefepime. Blood cultures negative so far, urine culture negative. Will de-escalate antibiotics. Will do IV cefazolin 1 g every 8 hours for now He is s/p internal fixation of left femoral intertrochanteric fracture. Will start him on DVT prophylaxis Lovenox 30 mg daily. Monitor CBC. Continue to monitor in ICU for today and will transfer [facility] in a.m. Attestations 2 Medical Necessity Statement*: He needs continued hospitalization for postop management of left hip fracture and PT eval Time Spent in Patient Care: 15 minutes Coding Level of Care Code Acute Code for [facility] Fwd Diagnoses Closed fracture of left hip S72.002A Encounter type: initial encounter Anemia D64.9 Acute hyponatremia E87.1 Hyperkalemia E87.5 Chronic diastolic congestive heart failure I50.32 Heart failure chronicity: chronic Heart failure type: diastolic Benign prostatic hyperplasia with incomplete bladder emptying N40.1; R39.14 Lower urinary tract symptom presence: symptoms present Lower urinary tract symptom detail: incomplete bladder emptying Coronary artery disease involving [place] coronary artery of [place] heart without angina pectoris I25.10 Coronary Disease-Associated Artery/Lesion type: [place] artery [place] vs. transplanted heart: [place] heart Associated angina: without angina Paroxysmal atrial fibrillation I48.0 Atrial fibrillation type: paroxysmal Alcohol abuse F10.10
--- NOTE | 2024-02-21 14:35 | PC.SOCIAL ---
IMM UPDATED IMM dated and initialed, copy given to patient and copy placed in chart.
[2024-02-21] MEDS: enoxaparin 30 mg/0.3 mL Syringe SUBCUT (15:31)
--- NOTE | 2024-02-21 17:40 | P.PN_ITS ---
<Statement entered by Baljinder Varela DO - 02/22/24 07:29> Reviewed and agree with PAs assessment and plan. Baljinder Varela DO Subjective 2 Subjective: Patient is a 73-year-old male that is 1 day postop left hip intertrochanter fracture ORIF with trochanteric femur nail. Denies any acute events overnight. Denies any fevers. Patient has gotten up with therapy today and transition into a chair. Tomorrow he will start working on some ambulation with therapy. Pain is controlled. Vitals/I&O/Wt Last Vital Signs Temp 98.4 F 02/21/24 16:00 Pulse 87 02/21/24 16:15 Resp 16 02/21/24 16:15 BP 98/73 02/21/24 16:00 Pulse Ox 99 02/21/24 16:15 O2 Del Method Nasal Cannula 02/21/24 16:15 O2 Flow Rate 4 02/21/24 16:15 FiO2 36 02/21/24 03:27 02/21/24 02/21/24 02/21/24 06:59 14:59 22:59 Intake Total 1110 / 2772.5 975 / 975 Output Total 550 / 900 Balance 560 / 1872.5 975 / 975 Weight last 48 hrs Weight 186 lb 4.65 oz Weight 184 lb 12.8 oz Physical Exam 2 Const: COMMON NORMALS: no acute distress and alert Resp: COMMON NORMALS: normal respiratory effort and No retractions Cardio: COMMON NORMALS: Peripheral pulses 2+ throughout PERIPHERAL PULSES: Peripheral pulses 2+ throughout Extremity: NARRATIVE EXTREMITY EXAM: Left lower extremity-some swelling and ecchymosis noted. Silverlon postop dressings are saturated at about 50%. Compartments are soft and compressible. Patient is able to wiggle his toes. Normal cap refill under 2 seconds. Pedal pulse 1+. Patient can dorsiflex and plantarflex foot. Neuro: SENSORIUM/ORIENTATION: Yes alert Skin: GENERAL SKIN EXAM: dry skin Urinary Catheter Management: Ashley: Cath Placed During This Visit: yes Reason for Continuing Indwelling Catheter: Accurate Measurement of Urinary Output in Critically Ill Patients Urinary Catheter Date of Insertion: 02/19/24 Urinary Catheter Time of Insertion: 00:12 Data 02/21/24 04:12 02/21/24 04:12 Micro: Microbiology 02/19/24 07:15 Urine Culture - Final Urine,Clean Catch A&P Assessment and plan (1) Closed fracture of left hip: Qualifiers: Encounter type: initial encounter Qualified Code(s): S72.002A - Fracture of unspecified part of neck of left femur, initial encounter for closed fracture Plan Plan: -Labs reviewed Hgb 7.3 -Hospitalist on board for medical management. -VTE prophylaxis per medicine -weight bear as tolerated to left leg with Therapy -Pain control -PT/OT Patient is 1 day postop left hip intertrochanteric fracture ORIF with troch nail. We will continue following patient tomorrow. Attestations 2 Medical Necessity Statement*: Ongoing care for left hip fracture Coding Level of Care Code Acute Code for [facility] Fwd Diagnoses Closed fracture of left hip S72.002A Encounter type: initial encounter
--- NOTE | 2024-02-21 18:03 | PC.NURSE ---
TRACI Weinstein made rounds on patient. Left hip dressing assessed with large amount of blood noted. Updated that patient had gotten out of bed x 1 today and had worked with PT and OT. No new orders noted.
[2024-02-21] MEDS: sennosides 8.6 mg Tablet 17.2 MG PO (22:33)
[2024-02-21] MEDS: ceFAZolin 3,000 MG in sodium chloride 0.9% (plus) 100 ML 200 MG IV (22:34)
[2024-02-22] VITALS (36 sets, daily range): BP systolic 90–168; BP diastolic 60–99; PULSE 84–141; RESP 13–93; TEMP 36.6–37.1; O2SAT 81–98
[2024-02-22] MEDS: oxyCODONE-APAP 5-325 mg Tablet 1 TAB PO ×2 (03:24→14:13)
[2024-02-22] MEDS: ipratropium-albuterol 3 mL Neb INHALATION ×5 (03:26→20:50)
[2024-02-22 05:05] LABS: Basophils % 0.2 %; Eosinophils # 0.2 10^3/uL (0.0-0.8); Eosinophils % 2.8 %; Hematocrit 21.4 % (37-53); Lymphocytes # 0.5 10^3/uL (0.8-4.8); Lymphocytes % 7.2 %; Mean Corpuscular HGB Conc 32.2 g/dL (30-55); Mean Corpuscular Hemoglobin 29.1 pg (27-33); Mean Corpuscular Volume 90.3 fl (82-101); Monocytes # 0.6 10^3/uL (0.2-0.9); Monocytes % 9.6 %; Neutrophils # 5.06 10^3/uL (1.8-7.7); Neutrophils % 79.7 %; Nucleated Red Blood Cells % 0 %; Platelet Count 173 10^3/cmm (157-399); Red Blood Count 2.37 10^6/uL (3.85-5.65); Red Cell Distribution Width 15.8 % (12.1-15.1); White Blood Count 6.35 10^3/uL (3.29-11.43)
[2024-02-22 05:14] LABS: Anion Gap 11.3 (5-19); Blood Urea Nitrogen 28 mg/dL (8-23); Calcium 8.3 mg/dL (8.5-10.5); Carbon Dioxide 27 mmol/L (22-29); Chloride 96 mmol/L (98-107); Creatinine Clr Calc Pharmacy 49.1954; Glucose 92 mg/dL (65-115); Osmolality Calculated 275 mOsm/kg (285-295); Potassium 4.3 mmol/L (3.5-5.1); Sodium 130 mmol/L (136-145)
[2024-02-22 05:16] LABS: Magnesium 1.8 mg/dL (1.7-2.3)
[2024-02-22] MEDS: ceFAZolin 3,000 MG in sodium chloride 0.9% (plus) 100 ML 200 MG IV ×3 (05:24→20:13)
--- NOTE | 2024-02-22 06:08 | PC.NURSE ---
Spoke with Dr. Rothman regarding hgb. New order received for one unit PRBC and have daytime team evaluate Lovenox.
[2024-02-22] MEDS: budesonide 0.5 mg/2 mL Neb INHALATION ×2 (07:50→20:50)
[2024-02-22] MEDS: multivitamin therapeutic Tablet 1 TAB PO (10:07)
[2024-02-22] MEDS: thiamine 100 mg Tablet PO (10:07)
[2024-02-22] MEDS: folic acid 1 mg Tablet PO (10:07)
[2024-02-22] MEDS: docusate sodium 100 mg Capsule PO ×2 (10:08→17:40)
[2024-02-22] MEDS: iron polysaccharide complex 150 mg Capsule PO ×2 (10:08→17:40)
[2024-02-22] MEDS: mupirocin oint 22 gm 1 APPLIC NASAL ×2 (10:08→17:40)
[2024-02-22] MEDS: TRAMadol 50 mg Tablet PO ×2 (10:08→17:40)
[2024-02-22] MEDS: calcium carb-vit d 600mg/400unit 1 Tablet 1 EACH PO ×2 (10:08→17:40)
[2024-02-22] MEDS: chlorhexidine gluconate 0.12% Btl 473 mL 30 ML MUCOUS MEM ×4 (10:09→20:12)
[2024-02-22] MEDS: sodium chloride 0.9% 1,000 ML 75 ML IV (10:12)
[2024-02-22] MEDS: enoxaparin 30 mg/0.3 mL Syringe SUBCUT (14:08)
--- NOTE | 2024-02-22 14:23 | P.PN_ITS ---
Subjective 2 Subjective: No acute overnight events noted. Seen him at bedside this morning. Was having difficulty transferring from bed to chair. Also was found to have dressing soaked with blood and discharge. Denies any new complaints Medications: Reviewed: Yes Vitals/I&O/Wt Last Vital Signs Temp 98.2 F 02/22/24 07:13 Pulse 89 02/22/24 12:02 Resp 14 02/22/24 14:13 BP 144/90 02/22/24 12:00 Pulse Ox 98 02/22/24 14:13 O2 Del Method Nasal Cannula 02/22/24 12:00 O2 Flow Rate 4 02/22/24 12:00 FiO2 4 02/22/24 03:26 02/21/24 02/22/24 02/22/24 22:59 06:59 14:59 Intake Total 1271.25 / 2246.25 1165 / 3411.25 535 / 535 Output Total 475 / 475 650 / 1125 Balance 796.25 / 1771.25 515 / 2286.25 535 / 535 Weight last 48 hrs Weight 85.729 kg Weight 84.5 kg Physical Exam 2 Narrative: General: Patient is awake and alert. Chronically ill-appearing. Conversational. Head: Normocephalic. Atraumatic. EOM intact. Neck: No JVD. Cardiovascular: RRR. No gallops. No murmurs. 2+ pitting edema in bilateral lower extremities. Lungs: Prolonged expiratory phase. No wheezing. No crackles. On supplemental oxygen support. Skin: No jaundice. No rashes. Abdomen: Normal bowel sounds, abdomen soft and nontender. Genito Urinary: Genital exam not performed since complaints not related. Rectal: Rectal exam not performed since no symptoms indicated blood loss. Extremities: No cyanosis or clubbing. Left lower extremity is shorter and externally rotated. Musculoskeletal: No swollen or erythematous joints. Neurological: Moves all 4 extremities. No myoclonus. Urinary Catheter Management: Ashley: Cath Placed During This Visit: yes Reason for Continuing Indwelling Catheter: Accurate Measurement of Urinary Output in Critically Ill Patients Urinary Catheter Date of Insertion: 02/19/24 Urinary Catheter Time of Insertion: 00:12 Data 02/22/24 04:41 02/22/24 04:41 Micro: Microbiology 02/19/24 07:15 Urine Culture - Final Urine,Clean Catch A&P Assessment and plan (1) Closed fracture of left hip: Left hip fracture secondary to mechanical fall Strict bedrest Neurovascular checks Ashley catheter for prolonged immobilization Orthopedic surgery consulted, n.p.o. after midnight for evaluation Hold Plavix Multimodal pain control Bowel regiment Qualifiers: Encounter type: initial encounter Qualified Code(s): S72.002A - Fracture of unspecified part of neck of left femur, initial encounter for closed fracture (2) Anemia: Acute on chronic anemia, suspected anemia of chronic disease/inflammatory anemia Patient consents to transfusion 1 packed blood red cell May need Lasix if he becomes fluid overloaded with transfusion Backorder iron labs Repeat labs in a.m. (3) Acute hyponatremia: Acute on chronic hyponatremia, could be culprit to his recurrent falls He appears hypervolemic on exam Check urine electrolytes, TSH Repeat labs in a.m. (4) Hyperkalemia: Mild hyperkalemia Received 1 L IV fluid bolus in ED Telemetry monitoring Recheck labs in a.m. (5) CHF (congestive heart failure): Chronic heart failure with preserved ejection fraction of 55 to 60% Strict I's and O's Daily weights Patient is currently not in exacerbation, but remains at risk with blood transfusion tonight Qualifiers: Heart failure chronicity: chronic Heart failure type: diastolic Qualified Code(s): I50.32 - Chronic diastolic (congestive) heart failure (6) BPH (benign prostatic hyperplasia): Plan to place Ashley catheter Plan to continue home medications after his list is updated Qualifiers: Lower urinary tract symptom presence: symptoms present Lower urinary tract symptom detail: incomplete bladder emptying Qualified Code(s): N40.1 - Benign prostatic hyperplasia with lower urinary tract symptoms; R39.14 - Feeling of incomplete bladder emptying (7) CAD (coronary artery disease): Hold Plavix for surgery Plan to resume other home medications after list is updated Qualifiers: Coronary Disease-Associated Artery/Lesion type: sun'aq artery [place] vs. transplanted heart: sun'aq heart Associated angina: without angina Qualified Code(s): I25.10 - Atherosclerotic heart disease of sun'aq coronary artery without angina pectoris (8) Afib: Atrial fibrillation, unspecified type Check EKG for preop assessment Not on therapeutic anticoagulation per prior home medication list Qualifiers: Atrial fibrillation type: paroxysmal Qualified Code(s): I48.0 - Paroxysmal atrial fibrillation (9) Alcohol abuse: [facility] protocol Plan DVT prophylaxis: SCDs 02/19/24 Labs reviewed showed WBC 7.5, hemoglobin 6.7, platelets 183, sodium 126, potassium 5.3, creatinine 1.8 baseline is 1.5, magnesium 1.5 Chest x-ray negative Had a 2D echo in 07/20 which showed biatrial dilatation, ascending aortic dilatation, EF of 55 to 60% CT cervical spine and CT head negative Venous duplex left leg negative Will transfuse 1 unit PRBC Start IV fluids normal saline at 75 cc/h Replaced magnesium, Kayexalate and calcium gluconate given for hyperkalemia Continue to monitor him in ICU Will try to taper Levophed. Follow-up orthopedics for further recommendations Will start on cardiac diet today. 02/20/24 Labs reviewed, hemoglobin 7.1, s/p 2 units PRBC. Creatinine trending down to 1.7. Blood pressure trend noted, currently blood pressure 97/52 which is his baseline at home Going for right hip surgery this afternoon. Plan to transfuse 1 more unit of packed red blood cells. Anticoagulation on hold for surgery. Still continues to have hyponatremia at 128. On IV normal saline at 75 cc/h. 02/21/24 Labs reviewed, hemoglobin stable at 7.3, creatinine stable at 1.7, baseline is 1.5. He is still on IV Zyvox and cefepime. Blood cultures negative so far, urine culture negative. Will de-escalate antibiotics. Will do IV cefazolin 1 g every 8 hours for now He is s/p internal fixation of left femoral intertrochanteric fracture. Will start him on DVT prophylaxis Lovenox 30 mg daily. Monitor CBC. Continue to monitor in ICU for today and will transfer to [facility] in a.m. 02/22/24 Labs reviewed, hemoglobin was 6.9, received 1 unit PRBC. Will recheck CBC at 6 PM today. Creatinine 1.5 at baseline, hyponatremia stable at 130. WBC 6.3. Continue IV cefazolin 1 g every 8 hours for now. Urine culture and blood culture negative so far Continue subcutaneous Lovenox for DVT prophylaxis. Will continue to monitor hemoglobin and for bleeding. Transfer to [facility] for further management Will keep following orthopedics for further recommendations. Attestations 2 Medical Necessity Statement*: He needs continued hospitalization for postop management of left hip fracture, acute on chronic anemia with blood transfusion as needed and PT Time Spent in Patient Care: 15 minutes Coding Level of Care Code Acute Code for Chg Fwd Diagnoses Closed fracture of left hip S72.002A Encounter type: initial encounter Anemia D64.9 Acute hyponatremia E87.1 Hyperkalemia E87.5 Chronic diastolic congestive heart failure I50.32 Heart failure chronicity: chronic Heart failure type: diastolic Benign prostatic hyperplasia with incomplete bladder emptying N40.1; R39.14 Lower urinary tract symptom presence: symptoms present Lower urinary tract symptom detail: incomplete bladder emptying Coronary artery disease involving sun'aq coronary artery of sun'[place] heart without angina pectoris I25.10 Coronary Disease-Associated Artery/Lesion type: sun'aq artery [place] vs. transplanted heart: sun'aq heart Associated angina: without angina Paroxysmal atrial fibrillation I48.0 Atrial fibrillation type: paroxysmal Alcohol abuse F10.10 Time Spent (min) 15
--- NOTE | 2024-02-22 16:10 | PC.NURSE ---
This nurse called into room by pt, he asked will you do something with this cup of coffee it has bugs crawling in it? No bugs seen anywhere. Pt very calm and matter of fact. Cup of coffee removed. Pt suppled with fresh cup. CIWA completed, he scored 4. Will continue to monitor.
--- NOTE | 2024-02-22 16:36 | PC.NURSE ---
Pt's sister, Patricia Garrett, notified via telephone of impending transfer to room 269.
--- NOTE | 2024-02-22 16:45 | PC.NURSE ---
Report called to [facility] for room 269. Report given to Ed Rutherford.
--- NOTE | 2024-02-22 17:00 | P.PN_ITS ---
<Statement entered by Baljinder Varela DO - 02/22/24 17:13> Reviewed and agree with PAs assessment and plan. Baljinder Varela DO Orthopedic surgery Subjective 2 Subjective: Patient is a 73-year-old male that is 2 day postop left hip intertrochanter fracture ORIF with trochanteric femur nail. Denies any acute events overnight. Denies any fevers. Patient has gotten up with therapy today and walked the hallway. He is doing well and is going to be transferred out of ICU over to [facility]. Pain is controlled. Vitals/I&O/Wt Last Vital Signs Temp 98 F 02/22/24 13:00 Pulse 95 02/22/24 16:00 Resp 13 02/22/24 16:00 BP 133/93 02/22/24 16:00 Pulse Ox 93 02/22/24 16:00 O2 Del Method Nasal Cannula 02/22/24 16:00 O2 Flow Rate 4 02/22/24 16:00 FiO2 4 02/22/24 03:26 02/22/24 02/22/24 02/22/24 06:59 14:59 22:59 Intake Total 1165 / 3411.25 1385 / 1385 Output Total 650 / 1125 650 / 650 Balance 515 / 2286.25 1385 / 1385 -650 / 735 Weight last 48 hrs Weight 189 lb Weight 186 lb 4.65 oz Physical Exam 2 Const: COMMON NORMALS: no acute distress and alert Resp: COMMON NORMALS: normal respiratory effort and No retractions Cardio: COMMON NORMALS: Peripheral pulses 2+ throughout PERIPHERAL PULSES: Peripheral pulses 2+ throughout Extremity: NARRATIVE EXTREMITY EXAM: Left lower extremity-some swelling and ecchymosis noted. Silverlon postop dressings are Dry and intact. Compartments are soft and compressible. Patient is able to wiggle his toes. Normal cap refill under 2 seconds. Pedal pulse 1+. Patient can dorsiflex and plantarflex foot. Neuro: SENSORIUM/ORIENTATION: Yes alert Skin: GENERAL SKIN EXAM: dry skin Urinary Catheter Management: Ashley: Cath Placed During This Visit: yes Reason for Continuing Indwelling Catheter: Accurate Measurement of Urinary Output in Critically Ill Patients Urinary Catheter Date of Insertion: 02/19/24 Urinary Catheter Time of Insertion: 00:12 Data 02/22/24 04:41 02/22/24 04:41 A&P Assessment and plan (1) Closed fracture of left hip: Qualifiers: Encounter type: initial encounter Qualified Code(s): S72.002A - Fracture of unspecified part of neck of left femur, initial encounter for closed fracture Plan Plan: -Labs reviewed Hgb 6.9-unit of blood transfused -Hospitalist on board for medical management. -VTE prophylaxis per medicine -weight bear as tolerated to left leg with Therapy -Continue changing dressings as needed -Pain control -PT/OT Patient is 2 day postop left hip intertrochanteric fracture ORIF with troch nail. We will continue following patient tomorrow. Attestations 2 Medical Necessity Statement*: Ongoing care for left hip fracture Coding Level of Care Code Acute Code for Chg Fwd Diagnoses Closed fracture of left hip S72.002A Encounter type: initial encounter
--- NOTE | 2024-02-22 17:30 | PC.NURSE ---
Addendum entered by Neida Phillips LPN 02/22/24 17:42: Pt up to med surg floor room 269 via wheelchair at 1735. Original Note: This nurse took report from JANELLE Langford in ICU at 4572.
[2024-02-22] MEDS: tamsulosin 0.4 mg Capsule 0.8 MG PO (17:40)
--- NOTE | 2024-02-22 17:50 | PC.NURSE ---
Pt transferred via W/C to room 269. All belongings with pt. Updated Krish, Ed and Maggie charge nurse.
[2024-02-22 18:31] LABS: Basophils % 0.1 %; Eosinophils # 0.2 10^3/uL (0.0-0.8); Eosinophils % 2.6 %; Hematocrit 26.4 % (37-53); Lymphocytes # 0.4 10^3/uL (0.8-4.8); Lymphocytes % 5.7 %; Mean Corpuscular HGB Conc 32.6 g/dL (30-55); Mean Corpuscular Hemoglobin 29.1 pg (27-33); Mean Corpuscular Volume 89.2 fl (82-101); Monocytes # 0.6 10^3/uL (0.2-0.9); Monocytes % 8.7 %; Neutrophils # 6.04 10^3/uL (1.8-7.7); Neutrophils % 82.5 %; Nucleated Red Blood Cells % 0 %; Platelet Count 182 10^3/cmm (157-399); Red Blood Count 2.96 10^6/uL (3.85-5.65); Red Cell Distribution Width 16.2 % (12.1-15.1); White Blood Count 7.33 10^3/uL (3.29-11.43)
--- NOTE | 2024-02-22 18:44 | PC.NURSE ---
Addendum entered by Neida Phillips LPN 02/22/24 18:59: Pt HR went down to 106. Notified Dr. Woods. PO metoprolol d/c and IVP metoprolol being held at this time. This nurse passed this info along to JANELLE Cagle. JAENLLE Cagle will monitor patients vitals. Vial of IVP Metoprolol given to JANELLE Cagle and PO metoprolol returned to [facility]. Addendum entered by Neida Phillips LPN 02/22/24 18:45: EKG ordered as well. Original Note: Patients HR 140, BP 163/101 and Respirations 22. This nurse informed Dr. Woods via voalte at 1837. New orders placed for IVP 5mg Metoprolol and PO 25mg Metoprolol.
--- NOTE | 2024-02-22 19:14 | ECG_ITS ---
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 Measurements Intervals [place] Rate: 101 P: 259 NV: 254 QRS: 34 QRSD: 105 T: 36 QT: 362 QTc: 470 Interpretive Statements SINUS TACHYCARDIA WITH FIRST DEGREE AV BLOCK LOW QRS VOLTAGE IN EXTREMITY LEADS [QRS DEFLECTION < 0.5 mV IN LIMB LEADS] Compared to ECG 02/18/2024 21:44:56 Low QRS voltage now present Sinus rhythm no longer present Indeterminate axis no longer present Prolonged QT interval no longer present Electronically Signed On 02-23-2024 19:11:49 LOCATOR SPECIALIST by Noel Mcclure M.D. [email or web address]
[2024-02-22] MEDS: sennosides 8.6 mg Tablet 17.2 MG PO (20:12)
[2024-02-22] MEDS: metoprolol tartrate 1 mg/1 mL SDV 5 mL 5 MG IVP (23:13)
--- NOTE | 2024-02-22 23:14 | PC.NURSE ---
Tachycardia At approximately 2300, pt's heart rate jumped up into the 140s and sustained. Dr. Rothman notified and ordered Metoprolol 5mg IVP one time dose. This nurse gave the med and pt's heart rate is now sustaining in the low 80s.
[2024-02-23] VITALS (21 sets, daily range): BP systolic 110–154; BP diastolic 81–97; PULSE 72–141; RESP 8–27; TEMP 36.3–36.7; O2SAT 90–98
[2024-02-23] MEDS: ipratropium-albuterol 3 mL Neb INHALATION ×6 (00:25→21:47)
[2024-02-23] MEDS: ceFAZolin 3,000 MG in sodium chloride 0.9% (plus) 100 ML 200 MG IV ×3 (04:41→20:27)
[2024-02-23 04:54] LABS: Basophils % 0.3 %; Eosinophils # 0.2 10^3/uL (0.0-0.8); Eosinophils % 3.4 %; Hematocrit 25.1 % (37-53); Lymphocytes # 0.4 10^3/uL (0.8-4.8); Lymphocytes % 6.8 %; Mean Corpuscular HGB Conc 31.5 g/dL (30-55); Mean Corpuscular Hemoglobin 28.5 pg (27-33); Mean Corpuscular Volume 90.6 fl (82-101); Mean Platelet Volume 8.9 fL (7.4-10.4); Monocytes # 0.7 10^3/uL (0.2-0.9); Monocytes % 11.4 %; Neutrophils # 4.76 10^3/uL (1.8-7.7); Neutrophils % 77.6 %; Nucleated Red Blood Cells % 0 %; Platelet Count 186 10^3/cmm (157-399); Red Blood Count 2.77 10^6/uL (3.85-5.65); White Blood Count 6.14 10^3/uL (3.29-11.43)
[2024-02-23 05:14] LABS: Blood Urea Nitrogen 26 mg/dL (8-23); Calcium 9.3 mg/dL (8.5-10.5); Carbon Dioxide 27 mmol/L (22-29); Chloride 97 mmol/L (98-107); Creatinine Clr Calc Pharmacy 48.9343; Glucose 98 mg/dL (65-115); Osmolality Calculated 277 mOsm/kg (285-295); Sodium 131 mmol/L (136-145)
[2024-02-23 05:15] LABS: Anion Gap 12.6 (5-19); Potassium 5.6 mmol/L (3.5-5.1)
[2024-02-23] MEDS: budesonide 0.5 mg/2 mL Neb INHALATION ×2 (08:05→21:46)
[2024-02-23] MEDS: albuterol 2.5 mg/3 mL Neb INHALATION (08:05)
[2024-02-23] MEDS: calcium carb-vit d 600mg/400unit 1 Tablet 1 EACH PO ×2 (08:36→17:09)
[2024-02-23] MEDS: docusate sodium 100 mg Capsule PO ×2 (08:36→17:09)
[2024-02-23] MEDS: calcium gluconate 0.9% NaCL 1 GM/50 ML PREMIX IV (08:36)
[2024-02-23] MEDS: sodium polystyrene sulfonate 15 gm/60 mL Btl PO (08:36)
[2024-02-23] MEDS: folic acid 1 mg Tablet PO (08:36)
[2024-02-23] MEDS: thiamine 100 mg Tablet PO (08:36)
[2024-02-23] MEDS: metoprolol tartrate 1 mg/1 mL SDV 5 mL 5 MG IVP ×2 (08:36→11:44)
[2024-02-23] MEDS: iron polysaccharide complex 150 mg Capsule PO ×2 (08:36→17:09)
[2024-02-23] MEDS: multivitamin therapeutic Tablet 1 TAB PO (08:36)
[2024-02-23] MEDS: atorvastatin 40 mg Tablet PO (08:36)
[2024-02-23] MEDS: acetaminophen 325 mg Tablet 650 MG PO (08:47)
[2024-02-23] MEDS: TRAMadol 50 mg Tablet PO ×3 (08:47→23:09)
--- NOTE | 2024-02-23 08:51 | ECG_ITS ---
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 Measurements Intervals [place] Rate: 104 P: 0 ND: 0 QRS: 17 QRSD: 104 T: 28 QT: 372 QTc: 490 Interpretive Statements ATRIAL FIBRILLATION WITH RAPID VENTRICULAR RESPONSE ABNORMAL RHYTHM ECG Compared to ECG 02/22/2024 19:14:14 Sinus tachycardia no longer present First degree AV block no longer present Electronically Signed On 02-23-2024 19:39:55 RUBBLE PLACER by Noel Mcclure M.D. [email or web address]
[2024-02-23] MEDS: oxyCODONE-APAP 5-325 mg Tablet 1 TAB PO ×2 (09:31→20:24)
[2024-02-23] MEDS: metoprolol tartrate 25 mg Tablet PO ×2 (09:31→11:44)
--- NOTE | 2024-02-23 09:43 | P.PN_ITS ---
Subjective 2 Subjective: Patient seen and examined this morning. Pain controlled with medications. Patient has A-fib. Patient had saturation of the Silverlon dressing and was subsequently new bandage and dressing applied. Vitals/I&O/Wt Last Vital Signs Temp 98.1 F 02/23/24 07:28 Pulse 141 H 02/23/24 08:19 Resp 16 02/23/24 09:31 BP 133/92 02/23/24 07:28 Pulse Ox 95 02/23/24 08:19 O2 Del Method Nasal Cannula 02/23/24 08:19 O2 Flow Rate 4 02/23/24 08:19 FiO2 36 02/23/24 04:29 02/22/24 02/23/24 02/23/24 22:59 06:59 14:59 Intake Total 901.25 / 2286.25 100 / 2386.25 Output Total 1200 / 1200 300 / 1500 Balance -298.75 / 1086.25 -200 / 886.25 Weight last 48 hrs Weight 143 lb 6.4 oz Weight 189 lb Physical Exam 2 Const: COMMON NORMALS: no acute distress and alert Resp: COMMON NORMALS: normal respiratory effort and No retractions Cardio: COMMON NORMALS: Peripheral pulses 2+ throughout PERIPHERAL PULSES: Peripheral pulses 2+ throughout Extremity: NARRATIVE EXTREMITY EXAM: Left lower extremity-normal. Swelling and ecchymosis noted about the left hip and thigh, Silverlon postop dressings and saturation this morning subsequently taken down patient just had watery/serosanguineous bloody tinged fluid drainage consistent with edematous bloody tinged drainage fluid normal postoperative appearance subsequently switched to a 4 x 4 and ABD dressing just to absorb any excess moisture and a foam tape dressing, compartments are soft and compressible. Patient is able to wiggle his toes. Normal cap refill under 2 seconds. Distal pulses palpable patient can dorsiflex and plantarflex foot. Left lower extremity is warm and well-perfused Neuro: SENSORIUM/ORIENTATION: Yes alert Skin: GENERAL SKIN EXAM: dry skin Urinary Catheter Management: Ashley: Cath Placed During This Visit: yes Reason for Continuing Indwelling Catheter: Other Urinary Catheter Date of Insertion: 02/19/24 Urinary Catheter Time of Insertion: 00:12 Data 02/23/24 04:37 02/23/24 04:37 A&P Assessment and plan (1) Closed fracture of left hip: Qualifiers: Encounter type: initial encounter Qualified Code(s): S72.002A - Fracture of unspecified part of neck of left femur, initial encounter for closed fracture Plan Plan: -Labs reviewed Hgb today is 7.9 -Hospitalist on board for medical management. -VTE prophylaxis per medicine -weight bear as tolerated to left leg with Therapy -Dressing changed today, can change or reinforce as needed if saturated -Pain control -PT/OT Patient is postoperative day 3 left hip intertrochanteric femur fracture status post ORIF with cephalomedullary nail. At this point in time hemoglobin appears to be stabilized he has normal postoperative swelling and ecchymosis about the hip, he has been on Plavix and blood thinners which is why anticipate he has had some postoperative anemia in conjunction with the surgery. This point in time appears to be stabilized dressing Was applied at this point time no further orthopedic surgical intervention at this time. Went ahead and placed patient discharge instructions in the chart orthopedic surgery team will sign off patient follow peripherally if there is any questions feel free to contact orthopedics on-call. Recommend patient follow-up with us in 2 weeks also will leave DVT prophylaxis to the primary team with recommendation of DVT prophylaxis for 35 days postoperatively after a hip fracture. Discussed this with hospitalist as well as patient understand agree with current plan. Questions answered. Attestations 2 Medical Necessity Statement*: Ongoing care status post left hip intertrochanteric femur fracture requiring ORIF with cephalomedullary nail Coding Level of Care Code Acute Code for Chg Fwd Diagnoses Closed fracture of left hip S72.002A Encounter type: initial encounter Time Spent (min) 25
--- NOTE | 2024-02-23 10:03 | PC.SOCIAL ---
IMM Updated Updated pt on IMM. No questions voiced. Provided pt a copy. Initialed, dated, & timed copy in chart.
[2024-02-23] MEDS: amiodarone 200 mg Tablet 400 MG PO (10:36)
[2024-02-23] MEDS: citalopram 20 mg Tablet PO (10:36)
--- NOTE | 2024-02-23 12:56 | P.PN_ITS ---
Subjective 2 Subjective: No acute overnight events noted. He was found to be in A-fib with RVR yesterday, received IV metoprolol 5 mg x 1. Seen him at bedside this morning. Denies any new complaints. Was found to have left hip hematoma which would resolve spontaneously as per Ortho. Again he went into A-fib with RVR and 1 30- 1 40s. Received IV metoprolol 5 mg x 1 and p.o. metoprolol 50 mg. Converted to A-fib at 86 bpm. Medications: Reviewed: Yes Vitals/I&O/Wt Last Vital Signs Temp 98.1 F 02/23/24 07:28 Pulse 123 H 02/23/24 12:42 Resp 20 H 02/23/24 12:42 BP 110/89 02/23/24 11:44 Pulse Ox 95 02/23/24 12:42 O2 Del Method Nasal Cannula 02/23/24 12:42 O2 Flow Rate 4 02/23/24 12:42 FiO2 36 02/23/24 04:29 02/22/24 02/23/24 02/23/24 22:59 06:59 14:59 Intake Total 901.25 / 2286.25 100 / 2386.25 290 / 290 Output Total 1200 / 1200 300 / 1500 Balance -298.75 / 1086.25 -200 / 886.25 290 / 290 Weight last 48 hrs Weight 65.045 kg Weight 85.729 kg Physical Exam 2 Narrative: General: Patient is awake and alert. Chronically ill-appearing. Conversational. Head: Normocephalic. Atraumatic. EOM intact. Neck: No JVD. Cardiovascular: RRR. No gallops. No murmurs. 2+ pitting edema in bilateral lower extremities. Lungs: Prolonged expiratory phase. No wheezing. No crackles. On supplemental oxygen support. Skin: No jaundice. No rashes. Abdomen: Normal bowel sounds, abdomen soft and nontender. Genito Urinary: Genital exam not performed since complaints not related. Rectal: Rectal exam not performed since no symptoms indicated blood loss. Extremities: No cyanosis or clubbing. Left hip pressure dressing present, hematoma palpated, bruising which was present preoperatively extending to left lower thigh and groin area. Musculoskeletal: No swollen or erythematous joints. Neurological: Moves all 4 extremities. No myoclonus. Urinary Catheter Management: Ashley: Cath Placed During This Visit: yes, but has since been removed by the nurse Reason for Continuing Indwelling Catheter: Decision to DC Catheter Urinary Catheter Date of Insertion: 02/19/24 Urinary Catheter Time of Insertion: 00:12 Date Urinary Catheter Removed: 02/23/24 Time Urinary Catheter Discontinued: 09:53 Data 02/23/24 04:37 02/23/24 04:37 A&P Assessment and plan (1) Closed fracture of left hip: Left hip fracture secondary to mechanical fall Strict bedrest Neurovascular checks Ashley catheter for prolonged immobilization Orthopedic surgery consulted, n.p.o. after midnight for evaluation Hold Plavix Multimodal pain control Bowel regiment Qualifiers: Encounter type: initial encounter Qualified Code(s): S72.002A - Fracture of unspecified part of neck of left femur, initial encounter for closed fracture (2) Anemia: Acute on chronic anemia, suspected anemia of chronic disease/inflammatory anemia Patient consents to transfusion 1 packed blood red cell May need Lasix if he becomes fluid overloaded with transfusion Backorder iron labs Repeat labs in a.m. (3) Acute hyponatremia: Acute on chronic hyponatremia, could be culprit to his recurrent falls He appears hypervolemic on exam Check urine electrolytes, TSH Repeat labs in a.m. (4) Hyperkalemia: Mild hyperkalemia Received 1 L IV fluid bolus in ED Telemetry monitoring Recheck labs in a.m. (5) CHF (congestive heart failure): Chronic heart failure with preserved ejection fraction of 55 to 60% Strict I's and O's Daily weights Patient is currently not in exacerbation, but remains at risk with blood transfusion tonight Qualifiers: Heart failure chronicity: chronic Heart failure type: diastolic Qualified Code(s): I50.32 - Chronic diastolic (congestive) heart failure (6) BPH (benign prostatic hyperplasia): Plan to place Ashley catheter Plan to continue home medications after his list is updated Qualifiers: Lower urinary tract symptom presence: symptoms present Lower urinary tract symptom detail: incomplete bladder emptying Qualified Code(s): N40.1 - Benign prostatic hyperplasia with lower urinary tract symptoms; R39.14 - Feeling of incomplete bladder emptying (7) CAD (coronary artery disease): Hold Plavix for surgery Plan to resume other home medications after list is updated Qualifiers: Coronary Disease-Associated Artery/Lesion type: elem artery [place] vs. transplanted heart: elem heart Associated angina: without angina Qualified Code(s): I25.10 - Atherosclerotic heart disease of elem coronary artery without angina pectoris (8) Afib: Atrial fibrillation, unspecified type Check EKG for preop assessment Not on therapeutic anticoagulation per prior home medication list Qualifiers: Atrial fibrillation type: paroxysmal Qualified Code(s): I48.0 - Paroxysmal atrial fibrillation (9) Alcohol abuse: [facility] protocol Plan DVT prophylaxis: SCDs 02/19/24 Labs reviewed showed WBC 7.5, hemoglobin 6.7, platelets 183, sodium 126, potassium 5.3, creatinine 1.8 baseline is 1.5, magnesium 1.5 Chest x-ray negative Had a 2D echo in 07/20 which showed biatrial dilatation, ascending aortic dilatation, EF of 55 to 60% CT cervical spine and CT head negative Venous duplex left leg negative Will transfuse 1 unit PRBC Start IV fluids normal saline at 75 cc/h Replaced magnesium, Kayexalate and calcium gluconate given for hyperkalemia Continue to monitor him in ICU Will try to taper Levophed. Follow-up orthopedics for further recommendations Will start on cardiac diet today. 02/20/24 Labs reviewed, hemoglobin 7.1, s/p 2 units PRBC. Creatinine trending down to 1.7. Blood pressure trend noted, currently blood pressure 97/52 which is his baseline at home Going for right hip surgery this afternoon. Plan to transfuse 1 more unit of packed red blood cells. Anticoagulation on hold for surgery. Still continues to have hyponatremia at 128. On IV normal saline at 75 cc/h. 02/21/24 Labs reviewed, hemoglobin stable at 7.3, creatinine stable at 1.7, baseline is 1.5. He is still on IV Zyvox and cefepime. Blood cultures negative so far, urine culture negative. Will de-escalate antibiotics. Will do IV cefazolin 1 g every 8 hours for now He is s/p internal fixation of left femoral intertrochanteric fracture. Will start him on DVT prophylaxis Lovenox 30 mg daily. Monitor CBC. Continue to monitor in ICU for today and will transfer to [facility] in a.m. 02/22/24 Labs reviewed, hemoglobin was 6.9, received 1 unit PRBC. Will recheck CBC at 6 PM today. Creatinine 1.5 at baseline, hyponatremia stable at 130. WBC 6.3. Continue IV cefazolin 1 g every 8 hours for now. Urine culture and blood culture negative so far Continue subcutaneous Lovenox for DVT prophylaxis. Will continue to monitor hemoglobin and for bleeding. Transfer to [facility] for further management Will keep following orthopedics for further recommendations. 02/23/24 Has past medical history of COPD, active smoker, history of alcoholism, drinks daily, history of CHF, history of CAD, peripheral vascular disease, history of GI bleed, history of gastric antral ulcer, not on anticoagulant therapy, afib. He is s/p day 3 of left hip intertrochanteric femur fracture s/p ORIF with cephalomedullary nail. Has left hip hematoma postoperatively likely because of preop blood thinners including Plavix. CBC stable hence will continue to monitor. He was also found to be in A-fib with RVR and 1 30-1 40s yesterday and today, improved with IV and p.o. metoprolol. EKG done on 2 occasions showed A- fib with RVR. Will resume home medications amiodarone and metoprolol. Will continue to hold Plavix and aspirin given left hip hematoma but continue with DVT prophylaxis with subcutaneous Lovenox. Hemoglobin today 7.9, creatinine improved to 1.2. Currently heart rate in 80s. Denies any new complaints. Will need case management for discharge planning to subacute facility. Attestations 2 Medical Necessity Statement*: He needs continued hospitalization for postop management of left hip fracture, acute on chronic anemia with blood transfusion as needed and PT Time Spent in Patient Care: 15 minutes Coding Level of Care Code Acute Code for [facility] Fwd Diagnoses Closed fracture of left hip S72.002A Encounter type: initial encounter Anemia D64.9 Acute hyponatremia E87.1 Hyperkalemia E87.5 Chronic diastolic congestive heart failure I50.32 Heart failure chronicity: chronic Heart failure type: diastolic Benign prostatic hyperplasia with incomplete bladder emptying N40.1; R39.14 Lower urinary tract symptom presence: symptoms present Lower urinary tract symptom detail: incomplete bladder emptying Coronary artery disease involving elem coronary artery of elem heart without angina pectoris I25.10 Coronary Disease-Associated Artery/Lesion type: elem artery [place] vs. transplanted heart: elem heart Associated angina: without angina Paroxysmal atrial fibrillation I48.0 Atrial fibrillation type: paroxysmal Alcohol abuse F10.10 Time Spent (min) 15
[2024-02-23 15:07] LABS: ABG PCO2 41.5 mmHg (35-45); ABG PH Result 7.42 (7.35-7.45); Arterial Blood Gas Hematocrit 24.9 % (42-52); Blood Gas Allen Test Pos; Blood Gas Operator Identificat AMH; Blood Gas Sample Site Radial, left; Blood Gas Sample Type Arterial; Carboxyhemoglobin 1.8 %THgb (0.4-20.1); HCO3 ABG 26.7 mmol/L (22-26); HGB O2 Sat 90.5 % (95-100); Ionized Calcium Level - ABG 1.3 mmol/L (1.1-1.4); Methemoglobin 1.2 % (0.4-1.5); Oxygen Device NC; Oxygen Saturation ABG 93.3; PO2 ABG 63.6 mmHg (80.0-100.0); PO2 FiO2 Ratio Arterial Blood 176; Potassium Level - ABG 4.6 mmol/L (3.5-5.0); Total Hemoglobin 8.1 g/dL (14-18)
--- NOTE | 2024-02-23 15:29 | XRR_ITS ---
PROCEDURE INFORMATION: Exam: XR Chest Exam date and time: 02/23/2024 3:36 PM Age: 73 years old Clinical indication: Shortness of breath TECHNIQUE: Imaging protocol: Radiologic exam of the chest. Views: 1 view. COMPARISON: CR (CHEST, ) 02/19/2024 2:45 AM FINDINGS: Lungs: Emphysematous changes in both lungs. Trace infiltrate versus atelectasis at each lung base. Pleural spaces: Unremarkable. No pleural effusion. No pneumothorax. Heart/Mediastinum: Mild cardiomegaly. Bones/joints: Unremarkable. XR/XR chest 1V portable [id number] IMPRESSION: 1. Emphysematous changes throughout both lungs. 2. Minimal infiltrate versus atelectasis at each lung base.
[2024-02-23] MEDS: LORazepam 2 mg/mL INJ 1 mL 0.5 MG IVP (16:28)
[2024-02-23] MEDS: metoprolol tartrate 50 mg Tablet PO (17:09)
[2024-02-23] MEDS: guaiFENesin 100 mg/5 mL UDC 10 mL 200 MG PO (17:09)
[2024-02-23] MEDS: tamsulosin 0.4 mg Capsule 0.8 MG PO (17:09)
[2024-02-23] MEDS: BuSPIRONE 10 mg Tablet 5 MG PO (17:10)
[2024-02-23] MEDS: sennosides 8.6 mg Tablet 17.2 MG PO (20:24)
[2024-02-23] MEDS: chlorhexidine gluconate 0.12% Btl 473 mL 30 ML MUCOUS MEM (20:44)
[2024-02-24] VITALS (15 sets, daily range): BP systolic 122–136; BP diastolic 79–90; PULSE 69–86; RESP 16–24; TEMP 36.4–36.7; O2SAT 90–99
--- NOTE | 2024-02-24 00:01 | XRR_ITS ---
PROCEDURE INFORMATION: Exam: XR Chest Exam date and time: 02/24/2024 12:07 AM Age: 73 years old Clinical indication: Shortness of breath; Additional info: Short of breath TECHNIQUE: Imaging protocol: Radiologic exam of the chest. Views: 1 view. COMPARISON: CR XR chest 1V portable [id number] 02/23/2024 3:36 PM FINDINGS: Lungs: Bibasilar hazy airspace opacities may represent an infectious process and/or atelectasis. Pleural spaces: Suspect small right-sided pleural effusion. No pneumothorax. Heart/Mediastinum: Unremarkable. No cardiomegaly. Bones/joints: Unremarkable. XR/XR chest 1V portable [id number] IMPRESSION: 1. Bibasilar hazy airspace opacities may represent an infectious process and/or atelectasis. 2. Suspect small right-sided pleural effusion
[2024-02-24] MEDS: FUROsemide 10 mg/mL SDV 4mL 40 MG IVP (00:27)
[2024-02-24 00:52] LABS: ABG PCO2 44.6 mmHg (35-45); ABG PH Result 7.37 (7.35-7.45); Arterial Blood Gas Hematocrit 27.1 % (42-52); Base Excess ABG 0.6 mmol/L (-2.0-2.0); Blood Gas Allen Test Pos; Blood Gas Sample Type Arterial; Carboxyhemoglobin 1.7 %THgb (0.4-20.1); HGB O2 Sat 93.4 % (95-100); Ionized Calcium Level - ABG 1.3 mmol/L (1.1-1.4); Methemoglobin 1.3 % (0.4-1.5); Oxygen Saturation ABG 96.3; PO2 ABG 80.7 mmHg (80.0-100.0); Potassium Level - ABG 4.6 mmol/L (3.5-5.0); Total Hemoglobin 8.8 g/dL (14-18)
[2024-02-24 00:54] LABS: Alveolar-Arterial Oxygen Gradi 15.5 mmHg (5-10); Blood Gas Operator Identificat 600455; Blood Gas Sample Site Radial, right; Oxygen Device NC; PO2 FiO2 Ratio Arterial Blood 224
[2024-02-24 00:58] LABS: Bilirubin Urine Negative (Negative); Blood Urine Negative (Negative); Glucose Urine UA Negative (Normal); Ketones Urine Trace (Negative); Leukocyte Esterase Urine 1+ (Negative); Nitrate Urine Negative (Negative); Protein Urine 1+ (Negative); Specific Gravity, Urine 1.022 (1.005-1.030); Urine Appearance Clear (CLEAR); Urine Color Yellow (Yellow); pH Urine 5.5 (5-7)
[2024-02-24 01:00] LABS: Add Urine Microscopic? YES; Bacteria Urine None Seen /hpf; Hyaline Casts Urine 4.52 /lpf; Squamous Epithelial Cell Urine 0-5 /hpf (0-5)
[2024-02-24] MEDS: ipratropium-albuterol 3 mL Neb INHALATION ×7 (01:05→23:56)
[2024-02-24] MEDS: LORazepam 2 mg/mL INJ 1 mL 0.5 MG IVP (02:00)
[2024-02-24 05:10] LABS: Basophils % 0.2 %; Eosinophils # 0.1 10^3/uL (0.0-0.8); Eosinophils % 1.7 %; Hematocrit 24.3 % (37-53); Lymphocytes # 0.6 10^3/uL (0.8-4.8); Lymphocytes % 9.8 %; Mean Corpuscular HGB Conc 31.7 g/dL (30-55); Mean Corpuscular Hemoglobin 29.8 pg (27-33); Mean Corpuscular Volume 94.2 fl (82-101); Mean Platelet Volume 8.8 fL (7.4-10.4); Neutrophils # 4.65 10^3/uL (1.8-7.7); Neutrophils % 72.7 %; Nucleated Red Blood Cells % 0 %; Platelet Count 158 10^3/cmm (157-399); Red Blood Count 2.58 10^6/uL (3.85-5.65); Red Cell Distribution Width 16.1 % (12.1-15.1)
[2024-02-24] MEDS: ceFAZolin 3,000 MG in sodium chloride 0.9% (plus) 100 ML 200 MG IV (05:16)
[2024-02-24 05:31] LABS: Blood Urea Nitrogen 28 mg/dL (8-23); Calcium 9.2 mg/dL (8.5-10.5); Carbon Dioxide 27 mmol/L (22-29); Chloride 98 mmol/L (98-107); Creatinine Clr Calc Pharmacy 62.4373; Glucose 84 mg/dL (65-115); Osmolality Calculated 287 mOsm/kg (285-295); Sodium 136 mmol/L (136-145)
[2024-02-24 05:33] LABS: Anion Gap 16.2 (5-19); Potassium 5.2 mmol/L (3.5-5.1)
[2024-02-24] MEDS: budesonide 0.5 mg/2 mL Neb INHALATION ×2 (07:16→19:55)
[2024-02-24] MEDS: cefTRIAXone 1,000 mg SDV 1000 MG IVP (08:41)
[2024-02-24] MEDS: docusate sodium 100 mg Capsule PO ×2 (08:42→17:07)
[2024-02-24] MEDS: multivitamin therapeutic Tablet 1 TAB PO (08:42)
[2024-02-24] MEDS: metoprolol tartrate 50 mg Tablet PO ×2 (08:42→17:07)
[2024-02-24] MEDS: BuSPIRONE 10 mg Tablet 5 MG PO ×2 (08:42→17:08)
[2024-02-24] MEDS: thiamine 100 mg Tablet PO (08:42)
[2024-02-24] MEDS: calcium carb-vit d 600mg/400unit 1 Tablet 1 EACH PO ×2 (08:42→17:07)
[2024-02-24] MEDS: amiodarone 200 mg Tablet 400 MG PO (08:42)
[2024-02-24] MEDS: folic acid 1 mg Tablet PO (08:43)
[2024-02-24] MEDS: citalopram 20 mg Tablet PO (08:43)
[2024-02-24] MEDS: iron polysaccharide complex 150 mg Capsule PO ×2 (08:43→17:07)
[2024-02-24] MEDS: FUROsemide 40 mg Tablet PO (08:43)
[2024-02-24] MEDS: atorvastatin 40 mg Tablet PO (08:43)
--- NOTE | 2024-02-24 12:32 | P.PN_ITS ---
Subjective 2 Subjective: Seen him at bedside this morning. Had an episode of shortness of breath yesterday evening, worsening. ABG did not show any hypoxia or hypercarbia. Chest x-ray repeated showed fluid overload likely secondary to A-fib with RVR. Received 1 dose of IV Lasix 40 mg yesterday. Medications: Reviewed: Yes Vitals/I&O/Wt Last Vital Signs Temp 98 F 02/24/24 11:22 Pulse 81 02/24/24 11:40 Resp 18 02/24/24 11:40 BP 126/81 02/24/24 11:22 Pulse Ox 98 02/24/24 11:40 O2 Del Method Nasal Cannula 02/24/24 11:40 O2 Flow Rate 3 02/24/24 11:40 FiO2 36 02/24/24 04:48 02/23/24 02/24/24 02/24/24 22:59 06:59 14:59 Intake Total 100 / 490 100 / 590 600 / 600 Output Total 250 / 250 1471 / 1721 125 / 125 Balance -150 / 240 -1371 / -1131 475 / 475 Weight last 48 hrs Weight 87.634 kg Weight 89.448 kg Weight 65.045 kg Physical Exam 2 Narrative: General: Patient is awake and alert. Frail-appearing conversational. Head: Normocephalic. Atraumatic. EOM intact. Neck: No JVD. Cardiovascular: RRR. No gallops. No murmurs. 2+ pitting edema in bilateral lower extremities. Lungs: Prolonged expiratory phase. No wheezing. No crackles. On supplemental oxygen support. Skin: No jaundice. No rashes. Abdomen: Normal bowel sounds, abdomen soft and nontender. Genito Urinary: Genital exam not performed since complaints not related. Rectal: Rectal exam not performed since no symptoms indicated blood loss. Extremities: No cyanosis or clubbing. Left hip pressure dressing present, hematoma palpated, bruising which was present preoperatively extending to left lower thigh and groin area. Musculoskeletal: No swollen or erythematous joints. Neurological: Moves all 4 extremities. No myoclonus. Urinary Catheter Management: Ashley: Cath Placed During This Visit: yes, but has since been removed by the nurse Reason for Continuing Indwelling Catheter: Decision to DC Catheter Urinary Catheter Date of Insertion: 02/19/24 Urinary Catheter Time of Insertion: 00:12 Date Urinary Catheter Removed: 02/23/24 Time Urinary Catheter Discontinued: 09:53 Data 02/24/24 05:00 02/24/24 05:00 Micro: Microbiology 02/19/24 07:17 Blood Culture - Final Blood NO GROWTH AFTER 5 DAYS 02/19/24 07:11 Blood Culture - Final Blood NO GROWTH AFTER 5 DAYS A&P Assessment and plan (1) Closed fracture of left hip: Left hip fracture secondary to mechanical fall Strict bedrest Neurovascular checks Ashley catheter for prolonged immobilization Orthopedic surgery consulted, n.p.o. after midnight for evaluation Hold Plavix Multimodal pain control Bowel regiment Qualifiers: Encounter type: initial encounter Qualified Code(s): S72.002A - Fracture of unspecified part of neck of left femur, initial encounter for closed fracture (2) Anemia: Acute on chronic anemia, suspected anemia of chronic disease/inflammatory anemia Patient consents to transfusion 1 packed blood red cell May need Lasix if he becomes fluid overloaded with transfusion Backorder iron labs Repeat labs in a.m. (3) Acute hyponatremia: Acute on chronic hyponatremia, could be culprit to his recurrent falls He appears hypervolemic on exam Check urine electrolytes, TSH Repeat labs in a.m. (4) Hyperkalemia: Mild hyperkalemia Received 1 L IV fluid bolus in ED Telemetry monitoring Recheck labs in a.m. (5) CHF (congestive heart failure): Chronic heart failure with preserved ejection fraction of 55 to 60% Strict I's and O's Daily weights Patient is currently not in exacerbation, but remains at risk with blood transfusion tonight Qualifiers: Heart failure chronicity: chronic Heart failure type: diastolic Qualified Code(s): I50.32 - Chronic diastolic (congestive) heart failure (6) BPH (benign prostatic hyperplasia): Plan to place Ashley catheter Plan to continue home medications after his list is updated Qualifiers: Lower urinary tract symptom presence: symptoms present Lower urinary tract symptom detail: incomplete bladder emptying Qualified Code(s): N40.1 - Benign prostatic hyperplasia with lower urinary tract symptoms; R39.14 - Feeling of incomplete bladder emptying (7) CAD (coronary artery disease): Hold Plavix for surgery Plan to resume other home medications after list is updated Qualifiers: Coronary Disease-Associated Artery/Lesion type: [place] artery [place] vs. transplanted heart: [place] heart Associated angina: without angina Qualified Code(s): I25.10 - Atherosclerotic heart disease of [place] coronary artery without angina pectoris (8) Afib: Atrial fibrillation, unspecified type Check EKG for preop assessment Not on therapeutic anticoagulation per prior home medication list Qualifiers: Atrial fibrillation type: paroxysmal Qualified Code(s): I48.0 - Paroxysmal atrial fibrillation (9) Alcohol abuse: [facility] protocol Plan DVT prophylaxis: SCDs 02/19/24 Labs reviewed showed WBC 7.5, hemoglobin 6.7, platelets 183, sodium 126, potassium 5.3, creatinine 1.8 baseline is 1.5, magnesium 1.5 Chest x-ray negative Had a 2D echo in 07/20 which showed biatrial dilatation, ascending aortic dilatation, EF of 55 to 60% CT cervical spine and CT head negative Venous duplex left leg negative Will transfuse 1 unit PRBC Start IV fluids normal saline at 75 cc/h Replaced magnesium, Kayexalate and calcium gluconate given for hyperkalemia Continue to monitor him in ICU Will try to taper Levophed. Follow-up orthopedics for further recommendations Will start on cardiac diet today. 02/20/24 Labs reviewed, hemoglobin 7.1, s/p 2 units PRBC. Creatinine trending down to 1.7. Blood pressure trend noted, currently blood pressure 97/52 which is his baseline at home Going for right hip surgery this afternoon. Plan to transfuse 1 more unit of packed red blood cells. Anticoagulation on hold for surgery. Still continues to have hyponatremia at 128. On IV normal saline at 75 cc/h. 02/21/24 Labs reviewed, hemoglobin stable at 7.3, creatinine stable at 1.7, baseline is 1.5. He is still on IV Zyvox and cefepime. Blood cultures negative so far, urine culture negative. Will de-escalate antibiotics. Will do IV cefazolin 1 g every 8 hours for now He is s/p internal fixation of left femoral intertrochanteric fracture. Will start him on DVT prophylaxis Lovenox 30 mg daily. Monitor CBC. Continue to monitor in ICU for today and will transfer to [facility] in a.m. 02/22/24 Labs reviewed, hemoglobin was 6.9, received 1 unit PRBC. Will recheck CBC at 6 PM today. Creatinine 1.5 at baseline, hyponatremia stable at 130. WBC 6.3. Continue IV cefazolin 1 g every 8 hours for now. Urine culture and blood culture negative so far Continue subcutaneous Lovenox for DVT prophylaxis. Will continue to monitor hemoglobin and for bleeding. Transfer to [facility] for further management Will keep following orthopedics for further recommendations. 02/23/24 Has past medical history of COPD, active smoker, history of alcoholism, drinks daily, history of CHF, history of CAD, peripheral vascular disease, history of GI bleed, history of gastric antral ulcer, not on anticoagulant therapy, afib. He is s/p day 3 of left hip intertrochanteric femur fracture s/p ORIF with cephalomedullary nail. Has left hip hematoma postoperatively likely because of preop blood thinners including Plavix. CBC stable hence will continue to monitor. He was also found to be in A-fib with RVR and 1 30-1 40s yesterday and today, improved with IV and p.o. metoprolol. EKG done on 2 occasions showed A- fib with RVR. Will resume home medications amiodarone and metoprolol. Will continue to hold Plavix and aspirin given left hip hematoma but continue with DVT prophylaxis with subcutaneous Lovenox. Hemoglobin today 7.9, creatinine improved to 1.2. Currently heart rate in 80s. Denies any new complaints. Will need case management for discharge planning to subacute facility. 02/24/24 He is s/p day 4 of left hip intertrochanteric femur fracture s/p ORIF with cephalomedullary nail. Left hip hematoma stable. CBC showed stable hemoglobin at 7.7. A-fib with RVR resolved with home dose of p.o. metoprolol 50 mg twice daily and amiodarone. But had an episode of pulmonary edema likely secondary to A-fib with RVR, had shortness of breath yesterday, chest x-ray revealed pulmonary edema. Received 1 dose of IV Lasix 40 mg. Feeling better this morning, will continue to monitor. Aspirin and Plavix still on hold secondary to left hip hematoma but will continue with subcutaneous Lovenox for DVT prophylaxis. Also antibiotics switched from IV cefazolin to IV ceftriaxone since UA was positive. Creatinine stable at 1.2. Attestations 2 Medical Necessity Statement*: He needs continued hospitalization for postop management of left hip fracture, acute on chronic anemia with blood transfusion as needed and PT Time Spent in Patient Care: 15 minutes Coding Level of Care Code Acute Code for [facility] Fwd Diagnoses Closed fracture of left hip S72.002A Encounter type: initial encounter Anemia D64.9 Acute hyponatremia E87.1 Hyperkalemia E87.5 Chronic diastolic congestive heart failure I50.32 Heart failure chronicity: chronic Heart failure type: diastolic Benign prostatic hyperplasia with incomplete bladder emptying N40.1; R39.14 Lower urinary tract symptom presence: symptoms present Lower urinary tract symptom detail: incomplete bladder emptying Coronary artery disease involving [place] coronary artery of [place] heart without angina pectoris I25.10 Coronary Disease-Associated Artery/Lesion type: [place] artery [place] vs. transplanted heart: [place] heart Associated angina: without angina Paroxysmal atrial fibrillation I48.0 Atrial fibrillation type: paroxysmal Alcohol abuse F10.10 Time Spent (min) 15
[2024-02-24] MEDS: oxyCODONE-APAP 5-325 mg Tablet 1 TAB PO ×2 (12:48→20:38)
[2024-02-24] MEDS: enoxaparin 40 mg/0.4 mL Syringe SUBCUT (15:27)
[2024-02-24] MEDS: tamsulosin 0.4 mg Capsule 0.8 MG PO (17:07)
[2024-02-24] MEDS: sennosides 8.6 mg Tablet 17.2 MG PO (20:39)
[2024-02-24] MEDS: acetaminophen 1,000 MG/100 ML PIGGYBACK 400 MG IV (22:53)
[2024-02-25] VITALS (19 sets, daily range): BP systolic 122–148; BP diastolic 79–99; PULSE 58–74; RESP 12–20; TEMP 36.2–36.6; O2SAT 80–99
[2024-02-25] MEDS: ketorolac 30 mg/mL INJ 15 MG IVP (00:10)
[2024-02-25] MEDS: oxyCODONE-APAP 5-325 mg Tablet 1 TAB PO ×3 (01:08→18:14)
[2024-02-25] MEDS: ipratropium-albuterol 3 mL Neb INHALATION ×6 (03:07→23:13)
[2024-02-25 05:53] LABS: Basophils % 0.5 %; Eosinophils # 0.2 10^3/uL (0.0-0.8); Eosinophils % 2.9 %; Hematocrit 25.4 % (37-53); Lymphocytes # 0.7 10^3/uL (0.8-4.8); Lymphocytes % 11.5 %; Mean Corpuscular HGB Conc 31.1 g/dL (30-55); Mean Corpuscular Hemoglobin 29.5 pg (27-33); Mean Corpuscular Volume 94.8 fl (82-101); Mean Platelet Volume 8.9 fL (7.4-10.4); Monocytes # 1.1 10^3/uL (0.2-0.9); Monocytes % 16.6 %; Neutrophils # 4.38 10^3/uL (1.8-7.7); Neutrophils % 67.9 %; Nucleated Red Blood Cells % 0 %; Platelet Count 174 10^3/cmm (157-399); Red Blood Count 2.68 10^6/uL (3.85-5.65); Red Cell Distribution Width 16.2 % (12.1-15.1); White Blood Count 6.45 10^3/uL (3.29-11.43)
[2024-02-25 06:12] LABS: Anion Gap 16.2 (5-19); Blood Urea Nitrogen 33 mg/dL (8-23); Calcium 9.6 mg/dL (8.5-10.5); Carbon Dioxide 26 mmol/L (22-29); Chloride 97 mmol/L (98-107); Creatinine Clr Calc Pharmacy 49.7438; Glucose 95 mg/dL (65-115); Osmolality Calculated 287 mOsm/kg (285-295); Potassium 4.2 mmol/L (3.5-5.1); Sodium 135 mmol/L (136-145)
[2024-02-25] MEDS: budesonide 0.5 mg/2 mL Neb INHALATION ×2 (07:12→20:13)
--- NOTE | 2024-02-25 07:57 | XRR_ITS ---
PROCEDURE INFORMATION: Exam: XR Chest Exam date and time: 02/25/2024 8:06 AM Age: 73 years old Clinical indication: Cardiovascular condition or disease; Congestive heart failure (chf); Cause unknown; Type unknown TECHNIQUE: Imaging protocol: Radiologic exam of the chest. Views: 1 view. COMPARISON: CR (CHEST, ) 02/24/2024 12:07 AM FINDINGS: Lungs: Stable bibasilar pulmonary infiltrates and atelectasis. Pleural spaces: Unremarkable. No pleural effusion. No pneumothorax. Heart/Mediastinum: The cardiac silhouette is enlarged but unchanged. Bones/joints: Unremarkable. XR/XR chest 1V portable [id number] IMPRESSION: Stable bibasilar pulmonary infiltrates and atelectasis.
[2024-02-25] MEDS: BuSPIRONE 10 mg Tablet 5 MG PO ×2 (08:27→18:14)
[2024-02-25] MEDS: docusate sodium 100 mg Capsule PO ×2 (08:28→18:14)
[2024-02-25] MEDS: atorvastatin 40 mg Tablet PO (08:28)
[2024-02-25] MEDS: folic acid 1 mg Tablet PO (08:28)
[2024-02-25] MEDS: FUROsemide 40 mg Tablet PO (08:28)
[2024-02-25] MEDS: calcium carb-vit d 600mg/400unit 1 Tablet 1 EACH PO ×2 (08:28→18:14)
[2024-02-25] MEDS: multivitamin therapeutic Tablet 1 TAB PO (08:28)
[2024-02-25] MEDS: iron polysaccharide complex 150 mg Capsule PO ×2 (08:28→18:14)
[2024-02-25] MEDS: metoprolol tartrate 50 mg Tablet PO ×2 (08:28→18:14)
[2024-02-25] MEDS: thiamine 100 mg Tablet PO (08:28)
[2024-02-25] MEDS: amiodarone 200 mg Tablet 400 MG PO (08:28)
[2024-02-25] MEDS: citalopram 20 mg Tablet PO (08:28)
[2024-02-25] MEDS: cefTRIAXone 1,000 mg SDV 1000 MG IVP (08:29)
--- NOTE | 2024-02-25 11:10 | PC.SOCIAL ---
IMM Updated Updated pt on IMM. No questions voiced. Provided pt a copy. Initialed, dated, & timed copy in chart.
--- NOTE | 2024-02-25 16:19 | PM.PN ---
Subjective Subjective: Seen him at bedside this morning. Denies any new complaints, seemed to be more drowsy. Spoke with the sitter he has not been able to sleep since last 2 days. But was arousable and comprehensive Medications: Reviewed: Yes Vitals/I&O/Wt Last Vital Signs Temp 97.3 F L 02/25/24 15:52 Pulse 62 02/25/24 15:52 Resp 17 02/25/24 15:52 BP 148/88 02/25/24 15:52 Pulse Ox 98 02/25/24 15:52 O2 Del Method Nasal Cannula 02/25/24 15:52 O2 Flow Rate 3 02/25/24 11:00 FiO2 36 02/25/24 15:52 02/25/24 02/25/24 02/25/24 06:59 14:59 22:59 Intake Total 100 / 940 240 / 240 Output Total 300 / 300 Balance 100 / 640 -60 / -60 Weight last 48 hrs Weight 86.778 kg Weight 87.634 kg Weight 89.448 kg Physical Exam Narrative: General: Patient is drowsy since has not been able to sleep well for the last 2 days.. Frail-appearing conversational. Head: Normocephalic. Atraumatic. EOM intact. Neck: No JVD. Cardiovascular: RRR. No gallops. No murmurs. 2+ pitting edema in bilateral lower extremities. Lungs: Prolonged expiratory phase. No wheezing. No crackles. On supplemental oxygen support. Skin: No jaundice. No rashes. Abdomen: Normal bowel sounds, abdomen soft and nontender. Genito Urinary: Genital exam not performed since complaints not related. Rectal: Rectal exam not performed since no symptoms indicated blood loss. Extremities: No cyanosis or clubbing. Left hip pressure dressing present, hematoma palpated, bruising which was present preoperatively extending to left lower thigh and groin area. Musculoskeletal: No swollen or erythematous joints. Neurological: Moves all 4 extremities. No myoclonus. Urinary Catheter Management: Ashley: Cath Placed During This Visit: yes, but has since been removed by the nurse Reason for Continuing Indwelling Catheter: Decision to DC Catheter Urinary Catheter Date of Insertion: 02/19/24 Urinary Catheter Time of Insertion: 00:12 Date Urinary Catheter Removed: 02/23/24 Time Urinary Catheter Discontinued: 09:53 Data 02/25/24 05:08 02/25/24 05:08 A&P Assessment and plan (1) Closed fracture of left hip: Left hip fracture secondary to mechanical fall Strict bedrest Neurovascular checks Ashley catheter for prolonged immobilization Orthopedic surgery consulted, n.p.o. after midnight for evaluation Hold Plavix Multimodal pain control Bowel regiment Qualifiers: Encounter type: initial encounter Qualified Code(s): S72.002A - Fracture of unspecified part of neck of left femur, initial encounter for closed fracture (2) Anemia: Acute on chronic anemia, suspected anemia of chronic disease/inflammatory anemia Patient consents to transfusion 1 packed blood red cell May need Lasix if he becomes fluid overloaded with transfusion Backorder iron labs Repeat labs in a.m. (3) Acute hyponatremia: Acute on chronic hyponatremia, could be culprit to his recurrent falls He appears hypervolemic on exam Check urine electrolytes, TSH Repeat labs in a.m. (4) Hyperkalemia: Mild hyperkalemia Received 1 L IV fluid bolus in ED Telemetry monitoring Recheck labs in a.m. (5) CHF (congestive heart failure): Chronic heart failure with preserved ejection fraction of 55 to 60% Strict I's and O's Daily weights Patient is currently not in exacerbation, but remains at risk with blood transfusion tonight Qualifiers: Heart failure chronicity: chronic Heart failure type: diastolic Qualified Code(s): I50.32 - Chronic diastolic (congestive) heart failure (6) BPH (benign prostatic hyperplasia): Plan to place Ashley catheter Plan to continue home medications after his list is updated Qualifiers: Lower urinary tract symptom presence: symptoms present Lower urinary tract symptom detail: incomplete bladder emptying Qualified Code(s): N40.1 - Benign prostatic hyperplasia with lower urinary tract symptoms; R39.14 - Feeling of incomplete bladder emptying (7) CAD (coronary artery disease): Hold Plavix for surgery Plan to resume other home medications after list is updated Qualifiers: Coronary Disease-Associated Artery/Lesion type: [place] artery [place] vs. transplanted heart: [place] heart Associated angina: without angina Qualified Code(s): I25.10 - Atherosclerotic heart disease of [place] coronary artery without angina pectoris (8) Afib: Atrial fibrillation, unspecified type Check EKG for preop assessment Not on therapeutic anticoagulation per prior home medication list Qualifiers: Atrial fibrillation type: paroxysmal Qualified Code(s): I48.0 - Paroxysmal atrial fibrillation (9) Alcohol abuse: CIWA protocol (10) Acute on chronic congestive heart failure with left ventricular diastolic dysfunction: Plan DVT prophylaxis: SCDs 02/19/24 Labs reviewed showed WBC 7.5, hemoglobin 6.7, platelets 183, sodium 126, potassium 5.3, creatinine 1.8 baseline is 1.5, magnesium 1.5 Chest x-ray negative Had a 2D echo in 07/20 which showed biatrial dilatation, ascending aortic dilatation, EF of 55 to 60% CT cervical spine and CT head negative Venous duplex left leg negative Will transfuse 1 unit PRBC Start IV fluids normal saline at 75 cc/h Replaced magnesium, Kayexalate and calcium gluconate given for hyperkalemia Continue to monitor him in ICU Will try to taper Levophed. Follow-up orthopedics for further recommendations Will start on cardiac diet today. 02/20/24 Labs reviewed, hemoglobin 7.1, s/p 2 units PRBC. Creatinine trending down to 1.7. Blood pressure trend noted, currently blood pressure 97/52 which is his baseline at home Going for right hip surgery this afternoon. Plan to transfuse 1 more unit of packed red blood cells. Anticoagulation on hold for surgery. Still continues to have hyponatremia at 128. On IV normal saline at 75 cc/h. 02/21/24 Labs reviewed, hemoglobin stable at 7.3, creatinine stable at 1.7, baseline is 1.5. He is still on IV Zyvox and cefepime. Blood cultures negative so far, urine culture negative. Will de-escalate antibiotics. Will do IV cefazolin 1 g every 8 hours for now He is s/p internal fixation of left femoral intertrochanteric fracture. Will start him on DVT prophylaxis Lovenox 30 mg daily. Monitor CBC. Continue to monitor in ICU for today and will transfer to [facility] in a.m. 02/22/24 Labs reviewed, hemoglobin was 6.9, received 1 unit PRBC. Will recheck CBC at 6 PM today. Creatinine 1.5 at baseline, hyponatremia stable at 130. WBC 6.3. Continue IV cefazolin 1 g every 8 hours for now. Urine culture and blood culture negative so far Continue subcutaneous Lovenox for DVT prophylaxis. Will continue to monitor hemoglobin and for bleeding. Transfer to [facility] for further management Will keep following orthopedics for further recommendations. 02/23/24 Has past medical history of COPD, active smoker, history of alcoholism, drinks daily, history of CHF, history of CAD, peripheral vascular disease, history of GI bleed, history of gastric antral ulcer, not on anticoagulant therapy, afib. He is s/p day 3 of left hip intertrochanteric femur fracture s/p ORIF with cephalomedullary nail. Has left hip hematoma postoperatively likely because of preop blood thinners including Plavix. CBC stable hence will continue to monitor. He was also found to be in A-fib with RVR and 1 30-1 40s yesterday and today, improved with IV and p.o. metoprolol. EKG done on 2 occasions showed A-fib with RVR. Will resume home medications amiodarone and metoprolol. Will continue to hold Plavix and aspirin given left hip hematoma but continue with DVT prophylaxis with subcutaneous Lovenox. Hemoglobin today 7.9, creatinine improved to 1.2. Currently heart rate in 80s. Denies any new complaints. Will need case management for discharge planning to subacute facility. 02/24/24 He is s/p day 4 of left hip intertrochanteric femur fracture s/p ORIF with cephalomedullary nail. Left hip hematoma stable. CBC showed stable hemoglobin at 7.7. A-fib with RVR resolved with home dose of p.o. metoprolol 50 mg twice daily and amiodarone. But had an episode of pulmonary edema likely secondary to A-fib with RVR, had shortness of breath yesterday, chest x-ray revealed pulmonary edema. Received 1 dose of IV Lasix 40 mg. Feeling better this morning, will continue to monitor. Aspirin and Plavix still on hold secondary to left hip hematoma but will continue with subcutaneous Lovenox for DVT prophylaxis. Also antibiotics switched from IV cefazolin to IV ceftriaxone since UA was positive. Creatinine stable at 1.2. 02/25/24 He is s/p day 5 of left hip repair. Left hip hematoma stable. Hemoglobin stable at 7.9. He has been normotensive and rate controlled with home medication metoprolol, amiodarone and Lasix. Chest x-ray yesterday again revealed pulmonary edema. Chest x-ray today looks improved. Will continue home medication Lasix. Continue IV ceftriaxone for UTI till 02/27 to a total of 5 days. Creatinine trending up since starting Lasix to 1.5 which is his baseline. Will continue to monitor. Awaiting case management for discharge planning. Attestations Medical Necessity Statement*: He needs continued hospitalization for postop management of left hip fracture, afib with rvr and Acute onchronic congestive heart failure. Time Spent in Patient Care: 15 minutes Coding Level of Care Code Acute Code for Chg Fwd Diagnoses Closed fracture of left hip S72.002A Encounter type: initial encounter Anemia D64.9 Acute hyponatremia E87.1 Hyperkalemia E87.5 Chronic diastolic congestive heart failure I50.32 Heart failure chronicity: chronic Heart failure type: diastolic Benign prostatic hyperplasia with incomplete bladder emptying N40.1; R39.14 Lower urinary tract symptom presence: symptoms present Lower urinary tract symptom detail: incomplete bladder emptying Coronary artery disease involving [place] coronary artery of [place] heart without angina pectoris I25.10 Coronary Disease-Associated Artery/Lesion type: [place] artery [place] vs. transplanted heart: [place] heart Associated angina: without angina Paroxysmal atrial fibrillation I48.0 Atrial fibrillation type: paroxysmal Alcohol abuse F10.10 Acute on chronic congestive heart failure with left ventricular diastolic dysfunction I50.33
[2024-02-25] MEDS: enoxaparin 40 mg/0.4 mL Syringe SUBCUT (18:13)
[2024-02-25] MEDS: tamsulosin 0.4 mg Capsule 0.8 MG PO (18:14)
[2024-02-25] MEDS: sennosides 8.6 mg Tablet 17.2 MG PO (20:00)
[2024-02-26] VITALS (17 sets, daily range): BP systolic 101–146; BP diastolic 64–93; PULSE 57–80; RESP 12–19; TEMP 36.3–37.1; O2SAT 89–100
[2024-02-26] MEDS: ipratropium-albuterol 3 mL Neb INHALATION ×5 (03:29→20:11)
[2024-02-26 05:00] LABS: Basophils % 0.3 %; Eosinophils # 0.3 10^3/uL (0.0-0.8); Eosinophils % 4.4 %; Hematocrit 26.5 % (37-53); Lymphocytes # 0.8 10^3/uL (0.8-4.8); Lymphocytes % 12.7 %; Mean Corpuscular HGB Conc 30.9 g/dL (30-55); Mean Corpuscular Hemoglobin 29.8 pg (27-33); Mean Corpuscular Volume 96.4 fl (82-101); Mean Platelet Volume 8.9 fL (7.4-10.4); Monocytes % 15.8 %; Neutrophils # 4.03 10^3/uL (1.8-7.7); Neutrophils % 65.5 %; Nucleated Red Blood Cells % 0.3 %; Platelet Count 168 10^3/cmm (157-399); Red Blood Count 2.75 10^6/uL (3.85-5.65); Red Cell Distribution Width 16.1 % (12.1-15.1); White Blood Count 6.15 10^3/uL (3.29-11.43)
[2024-02-26 05:21] LABS: Anion Gap 16.1 (5-19); Blood Urea Nitrogen 31 mg/dL (8-23); Calcium 9.5 mg/dL (8.5-10.5); Carbon Dioxide 28 mmol/L (22-29); Chloride 98 mmol/L (98-107); Creatinine Clr Calc Pharmacy 49.7438; Glucose 83 mg/dL (65-115); Osmolality Calculated 292 mOsm/kg (285-295); Potassium 4.1 mmol/L (3.5-5.1); Sodium 138 mmol/L (136-145)
[2024-02-26] MEDS: oxyCODONE-APAP 5-325 mg Tablet 1 TAB PO ×3 (08:29→20:34)
[2024-02-26] MEDS: amiodarone 200 mg Tablet 400 MG PO (08:32)
[2024-02-26] MEDS: cefTRIAXone 1,000 mg SDV 1000 MG IVP (08:32)
[2024-02-26] MEDS: folic acid 1 mg Tablet PO (08:32)
[2024-02-26] MEDS: metoprolol tartrate 50 mg Tablet PO ×2 (08:32→17:25)
[2024-02-26] MEDS: multivitamin therapeutic Tablet 1 TAB PO (08:32)
[2024-02-26] MEDS: citalopram 20 mg Tablet PO (08:32)
[2024-02-26] MEDS: iron polysaccharide complex 150 mg Capsule PO ×2 (08:32→17:25)
[2024-02-26] MEDS: thiamine 100 mg Tablet PO (08:32)
[2024-02-26] MEDS: calcium carb-vit d 600mg/400unit 1 Tablet 1 EACH PO ×2 (08:32→17:25)
[2024-02-26] MEDS: docusate sodium 100 mg Capsule PO ×2 (08:33→17:25)
[2024-02-26] MEDS: BuSPIRONE 10 mg Tablet 5 MG PO ×2 (08:33→17:25)
[2024-02-26] MEDS: atorvastatin 40 mg Tablet PO (08:33)
[2024-02-26] MEDS: FUROsemide 40 mg Tablet PO (08:33)
[2024-02-26] MEDS: budesonide 0.5 mg/2 mL Neb INHALATION ×2 (09:08→20:11)
--- NOTE | 2024-02-26 14:19 | P.PN_ITS ---
Subjective 2 Subjective: Seen him at bedside this morning. He is doing well and feeling better, states shortness of breath improved. Was able to sleep last night Medications: Reviewed: Yes Vitals/I&O/Wt Last Vital Signs Temp 97.8 F 02/26/24 11:39 Pulse 80 02/26/24 12:42 Resp 16 02/26/24 13:25 BP 128/89 02/26/24 11:39 Pulse Ox 92 02/26/24 12:42 O2 Del Method Nasal Cannula 02/26/24 12:42 O2 Flow Rate 2 02/26/24 12:42 FiO2 36 02/26/24 03:29 02/25/24 02/26/24 02/26/24 22:59 06:59 14:59 Intake Total 480 / 720 100 / 820 480 / 480 Output Total 225 / 525 525 / 525 Balance 480 / 420 -125 / 295 -45 / -45 Weight last 48 hrs Weight 88.932 kg Weight 86.778 kg Physical Exam 2 Narrative: He is alert awake oriented x 3, frail, not in acute distress, on nasal cannula Chest bilateral basal crackles present, improved as compared to 2 days ago Cardiovascular normal heart sounds no murmurs Abdomen soft nontender nondistended normal bowel sounds Extremities no edema noted bilateral lower extremities, left hip hematoma resolving Urinary Catheter Management: Ashley: Cath Placed During This Visit: yes, but has since been removed by the nurse Reason for Continuing Indwelling Catheter: Decision to DC Catheter Urinary Catheter Date of Insertion: 02/19/24 Urinary Catheter Time of Insertion: 00:12 Date Urinary Catheter Removed: 02/23/24 Time Urinary Catheter Discontinued: 09:53 Data 02/26/24 04:24 02/26/24 04:24 A&P Assessment and plan (1) Closed fracture of left hip: Left hip fracture secondary to mechanical fall Strict bedrest Neurovascular checks Ashley catheter for prolonged immobilization Orthopedic surgery consulted, n.p.o. after midnight for evaluation Hold Plavix Multimodal pain control Bowel regiment Qualifiers: Encounter type: initial encounter Qualified Code(s): S72.002A - Fracture of unspecified part of neck of left femur, initial encounter for closed fracture (2) Anemia: Acute on chronic anemia, suspected anemia of chronic disease/inflammatory anemia Patient consents to transfusion 1 packed blood red cell May need Lasix if he becomes fluid overloaded with transfusion Backorder iron labs Repeat labs in a.m. (3) Acute hyponatremia: Acute on chronic hyponatremia, could be culprit to his recurrent falls He appears hypervolemic on exam Check urine electrolytes, TSH Repeat labs in a.m. (4) Hyperkalemia: Mild hyperkalemia Received 1 L IV fluid bolus in ED Telemetry monitoring Recheck labs in a.m. (5) CHF (congestive heart failure): Chronic heart failure with preserved ejection fraction of 55 to 60% Strict I's and O's Daily weights Patient is currently not in exacerbation, but remains at risk with blood transfusion tonight Qualifiers: Heart failure chronicity: chronic Heart failure type: diastolic Qualified Code(s): I50.32 - Chronic diastolic (congestive) heart failure (6) BPH (benign prostatic hyperplasia): Plan to place Ashley catheter Plan to continue home medications after his list is updated Qualifiers: Lower urinary tract symptom presence: symptoms present Lower urinary tract symptom detail: incomplete bladder emptying Qualified Code(s): N40.1 - Benign prostatic hyperplasia with lower urinary tract symptoms; R39.14 - Feeling of incomplete bladder emptying (7) CAD (coronary artery disease): Hold Plavix for surgery Plan to resume other home medications after list is updated Qualifiers: Coronary Disease-Associated Artery/Lesion type: [place] artery [place] vs. transplanted heart: [place] heart Associated angina: without angina Qualified Code(s): I25.10 - Atherosclerotic heart disease of [place] coronary artery without angina pectoris (8) Afib: Atrial fibrillation, unspecified type Check EKG for preop assessment Not on therapeutic anticoagulation per prior home medication list Qualifiers: Atrial fibrillation type: paroxysmal Qualified Code(s): I48.0 - Paroxysmal atrial fibrillation (9) Alcohol abuse: CIWA protocol (10) Acute on chronic congestive heart failure with left ventricular diastolic dysfunction: Plan DVT prophylaxis: SCDs 02/19/24 Labs reviewed showed WBC 7.5, hemoglobin 6.7, platelets 183, sodium 126, potassium 5.3, creatinine 1.8 baseline is 1.5, magnesium 1.5 Chest x-ray negative Had a 2D echo in 07/20 which showed biatrial dilatation, ascending aortic dilatation, EF of 55 to 60% CT cervical spine and CT head negative Venous duplex left leg negative Will transfuse 1 unit PRBC Start IV fluids normal saline at 75 cc/h Replaced magnesium, Kayexalate and calcium gluconate given for hyperkalemia Continue to monitor him in ICU Will try to taper Levophed. Follow-up orthopedics for further recommendations Will start on cardiac diet today. 02/20/24 Labs reviewed, hemoglobin 7.1, s/p 2 units PRBC. Creatinine trending down to 1.7. Blood pressure trend noted, currently blood pressure 97/52 which is his baseline at home Going for right hip surgery this afternoon. Plan to transfuse 1 more unit of packed red blood cells. Anticoagulation on hold for surgery. Still continues to have hyponatremia at 128. On IV normal saline at 75 cc/h. 02/21/24 Labs reviewed, hemoglobin stable at 7.3, creatinine stable at 1.7, baseline is 1.5. He is still on IV Zyvox and cefepime. Blood cultures negative so far, urine culture negative. Will de-escalate antibiotics. Will do IV cefazolin 1 g every 8 hours for now He is s/p internal fixation of left femoral intertrochanteric fracture. Will start him on DVT prophylaxis Lovenox 30 mg daily. Monitor CBC. Continue to monitor in ICU for today and will transfer to [facility] in a.m. 02/22/24 Labs reviewed, hemoglobin was 6.9, received 1 unit PRBC. Will recheck CBC at 6 PM today. Creatinine 1.5 at baseline, hyponatremia stable at 130. WBC 6.3. Continue IV cefazolin 1 g every 8 hours for now. Urine culture and blood culture negative so far Continue subcutaneous Lovenox for DVT prophylaxis. Will continue to monitor hemoglobin and for bleeding. Transfer to [facility] for further management Will keep following orthopedics for further recommendations. 02/23/24 Has past medical history of COPD, active smoker, history of alcoholism, drinks daily, history of CHF, history of CAD, peripheral vascular disease, history of GI bleed, history of gastric antral ulcer, not on anticoagulant therapy, afib. He is s/p day 3 of left hip intertrochanteric femur fracture s/p ORIF with cephalomedullary nail. Has left hip hematoma postoperatively likely because of preop blood thinners including Plavix. CBC stable hence will continue to monitor. He was also found to be in A-fib with RVR and 1 30-1 40s yesterday and today, improved with IV and p.o. metoprolol. EKG done on 2 occasions showed A- fib with RVR. Will resume home medications amiodarone and metoprolol. Will continue to hold Plavix and aspirin given left hip hematoma but continue with DVT prophylaxis with subcutaneous Lovenox. Hemoglobin today 7.9, creatinine improved to 1.2. Currently heart rate in 80s. Denies any new complaints. Will need case management for discharge planning to subacute facility. 02/24/24 He is s/p day 4 of left hip intertrochanteric femur fracture s/p ORIF with cephalomedullary nail. Left hip hematoma stable. CBC showed stable hemoglobin at 7.7. A-fib with RVR resolved with home dose of p.o. metoprolol 50 mg twice daily and amiodarone. But had an episode of pulmonary edema likely secondary to A-fib with RVR, had shortness of breath yesterday, chest x-ray revealed pulmonary edema. Received 1 dose of IV Lasix 40 mg. Feeling better this morning, will continue to monitor. Aspirin and Plavix still on hold secondary to left hip hematoma but will continue with subcutaneous Lovenox for DVT prophylaxis. Also antibiotics switched from IV cefazolin to IV ceftriaxone since UA was positive. Creatinine stable at 1.2. 02/25/24 He is s/p day 5 of left hip repair. Left hip hematoma stable. Hemoglobin stable at 7.9. He has been normotensive and rate controlled with home medication metoprolol, amiodarone and Lasix. Chest x-ray yesterday again revealed pulmonary edema. Chest x-ray today looks improved. Will continue home medication Lasix. Continue IV ceftriaxone for UTI till 02/27 to a total of 5 days. Creatinine trending up since starting Lasix to 1.5 which is his baseline. Will continue to monitor. Awaiting case management for discharge planning. 02/26/24 He is s/p day 6 of left hip repair. Left hip hematoma resolving. Hemoglobin improved to 8.2 Creatinine stable at 1.5. Continue IV ceftriaxone for UTI and aspiration pneumonia. A-fib controlled with rate of 58-62. Continue current management. Repeat chest x-ray in a.m. will follow-up case management on Wednesday for discharge planning. Attestations 2 Medical Necessity Statement*: He needs continued hospitalization for postop management of left hip fracture, afib with rvr and Acute onchronic congestive heart failure. Time Spent in Patient Care: 15 minutes Coding Level of Care Code Acute Code for Chg Fwd Diagnoses Closed fracture of left hip S72.002A Encounter type: initial encounter Anemia D64.9 Acute hyponatremia E87.1 Hyperkalemia E87.5 Chronic diastolic congestive heart failure I50.32 Heart failure chronicity: chronic Heart failure type: diastolic Benign prostatic hyperplasia with incomplete bladder emptying N40.1; R39.14 Lower urinary tract symptom presence: symptoms present Lower urinary tract symptom detail: incomplete bladder emptying Coronary artery disease involving [place] coronary artery of [place] heart without angina pectoris I25.10 Coronary Disease-Associated Artery/Lesion type: [place] artery [place] vs. transplanted heart: [place] heart Associated angina: without angina Paroxysmal atrial fibrillation I48.0 Atrial fibrillation type: paroxysmal Alcohol abuse F10.10 Acute on chronic congestive heart failure with left ventricular diastolic dysfunction I50.33 Time Spent (min) 15
[2024-02-26] MEDS: enoxaparin 40 mg/0.4 mL Syringe SUBCUT (15:35)
[2024-02-26] MEDS: tamsulosin 0.4 mg Capsule 0.8 MG PO (17:25)
[2024-02-26] MEDS: sennosides 8.6 mg Tablet 17.2 MG PO (20:34)
[2024-02-27] VITALS (17 sets, daily range): BP systolic 119–139; BP diastolic 72–89; PULSE 56–74; RESP 16–24; TEMP 36.3–37; O2SAT 91–99
[2024-02-27] MEDS: ipratropium-albuterol 3 mL Neb INHALATION ×6 (01:34→20:07)
[2024-02-27] MEDS: oxyCODONE-APAP 5-325 mg Tablet 1 TAB PO ×3 (04:03→14:17)
--- NOTE | 2024-02-27 06:00 | XRR_ITS ---
PROCEDURE INFORMATION: Exam: XR Chest Exam date and time: 02/27/2024 7:12 AM Age: 73 years old Clinical indication: Shortness of breath; Additional info: Fluid overload TECHNIQUE: Imaging protocol: Radiologic exam of the chest. Views: 1 view. COMPARISON: CR XR chest 1V portable [id number] 02/25/2024 8:06 AM FINDINGS: Lungs: No infiltrate. Pleural spaces: Small left pleural effusion not simply changed. Heart/Mediastinum: There is moderate cardiomegaly with vascular congestion. Bones/joints: Unremarkable. XR/XR chest 1V portable [id number] follow up IMPRESSION: 1. Moderate cardiomegaly with vascular congestion. 2. Stable appearance of the chest. 3. Small left pleural effusion not significantly changed.
[2024-02-27] MEDS: budesonide 0.5 mg/2 mL Neb INHALATION ×2 (07:23→20:07)
[2024-02-27] MEDS: amiodarone 200 mg Tablet 400 MG PO (08:41)
[2024-02-27] MEDS: cefTRIAXone 1,000 mg SDV 1000 MG IVP (08:41)
[2024-02-27] MEDS: calcium carb-vit d 600mg/400unit 1 Tablet 1 EACH PO ×2 (08:42→17:40)
[2024-02-27] MEDS: iron polysaccharide complex 150 mg Capsule PO ×2 (08:42→17:42)
[2024-02-27] MEDS: multivitamin therapeutic Tablet 1 TAB PO (08:42)
[2024-02-27] MEDS: thiamine 100 mg Tablet PO (08:42)
[2024-02-27] MEDS: folic acid 1 mg Tablet PO (08:42)
[2024-02-27] MEDS: BuSPIRONE 10 mg Tablet 5 MG PO ×2 (08:42→17:41)
[2024-02-27] MEDS: metoprolol tartrate 50 mg Tablet PO ×2 (08:43→17:41)
[2024-02-27] MEDS: FUROsemide 40 mg Tablet PO (08:43)
[2024-02-27] MEDS: docusate sodium 100 mg Capsule PO ×2 (08:43→17:41)
[2024-02-27] MEDS: atorvastatin 40 mg Tablet PO (08:43)
[2024-02-27] MEDS: citalopram 20 mg Tablet PO (08:43)
[2024-02-27] MEDS: enoxaparin 40 mg/0.4 mL Syringe SUBCUT (14:12)
[2024-02-27] MEDS: guaiFENesin 100 mg/5 mL UDC 10 mL 200 MG PO (14:17)
--- NOTE | 2024-02-27 15:51 | PM.PN ---
Subjective Subjective: Seen him at bedside this morning. No acute overnight events noted. Medications: Reviewed: Yes Vitals/I&O/Wt Last Vital Signs Temp 97.4 F L 02/27/24 11:56 Pulse 56 L 02/27/24 15:28 Resp 18 02/27/24 15:28 BP 123/72 02/27/24 11:56 Pulse Ox 99 02/27/24 15:28 O2 Del Method Nasal Cannula 02/27/24 15:28 O2 Flow Rate 3 02/27/24 15:28 FiO2 36 02/26/24 03:29 02/27/24 02/27/24 02/27/24 06:59 14:59 22:59 Intake Total 360 / 1440 1200 / 1200 Output Total 400 / 1700 450 / 450 Balance -40 / -260 750 / 750 Weight last 48 hrs Weight 89.584 kg Weight 88.932 kg Physical Exam Narrative: He is alert awake oriented x 3, frail, not in acute distress, on nasal cannula Chest bilateral basal crackles present, improved as compared to 2 days ago Cardiovascular normal heart sounds no murmurs Abdomen soft nontender nondistended normal bowel sounds Extremities no edema noted bilateral lower extremities, left hip hematoma resolving Urinary Catheter Management: Ashley: Cath Placed During This Visit: yes, but has since been removed by the nurse Reason for Continuing Indwelling Catheter: Decision to DC Catheter Urinary Catheter Date of Insertion: 02/19/24 Urinary Catheter Time of Insertion: 00:12 Date Urinary Catheter Removed: 02/23/24 Time Urinary Catheter Discontinued: 09:53 Data 02/26/24 04:24 02/26/24 04:24 A&P Assessment and plan (1) Closed fracture of left hip: Left hip fracture secondary to mechanical fall Strict bedrest Neurovascular checks Ashley catheter for prolonged immobilization Orthopedic surgery consulted, n.p.o. after midnight for evaluation Hold Plavix Multimodal pain control Bowel regiment Qualifiers: Encounter type: initial encounter Qualified Code(s): S72.002A - Fracture of unspecified part of neck of left femur, initial encounter for closed fracture (2) Anemia: Acute on chronic anemia, suspected anemia of chronic disease/inflammatory anemia Patient consents to transfusion 1 packed blood red cell May need Lasix if he becomes fluid overloaded with transfusion Backorder iron labs Repeat labs in a.m. (3) Acute hyponatremia: Acute on chronic hyponatremia, could be culprit to his recurrent falls He appears hypervolemic on exam Check urine electrolytes, TSH Repeat labs in a.m. (4) Hyperkalemia: Mild hyperkalemia Received 1 L IV fluid bolus in ED Telemetry monitoring Recheck labs in a.m. (5) CHF (congestive heart failure): Chronic heart failure with preserved ejection fraction of 55 to 60% Strict I's and O's Daily weights Patient is currently not in exacerbation, but remains at risk with blood transfusion tonight Qualifiers: Heart failure chronicity: chronic Heart failure type: diastolic Qualified Code(s): I50.32 - Chronic diastolic (congestive) heart failure (6) BPH (benign prostatic hyperplasia): Plan to place Ashley catheter Plan to continue home medications after his list is updated Qualifiers: Lower urinary tract symptom presence: symptoms present Lower urinary tract symptom detail: incomplete bladder emptying Qualified Code(s): N40.1 - Benign prostatic hyperplasia with lower urinary tract symptoms; R39.14 - Feeling of incomplete bladder emptying (7) CAD (coronary artery disease): Hold Plavix for surgery Plan to resume other home medications after list is updated Qualifiers: Coronary Disease-Associated Artery/Lesion type: [place] artery [place] vs. transplanted heart: [place] heart Associated angina: without angina Qualified Code(s): I25.10 - Atherosclerotic heart disease of [place] coronary artery without angina pectoris (8) Afib: Atrial fibrillation, unspecified type Check EKG for preop assessment Not on therapeutic anticoagulation per prior home medication list Qualifiers: Atrial fibrillation type: paroxysmal Qualified Code(s): I48.0 - Paroxysmal atrial fibrillation (9) Alcohol abuse: CIWA protocol (10) Acute on chronic congestive heart failure with left ventricular diastolic dysfunction: Plan DVT prophylaxis: SCDs 02/19/24 Labs reviewed showed WBC 7.5, hemoglobin 6.7, platelets 183, sodium 126, potassium 5.3, creatinine 1.8 baseline is 1.5, magnesium 1.5 Chest x-ray negative Had a 2D echo in 07/20 which showed biatrial dilatation, ascending aortic dilatation, EF of 55 to 60% CT cervical spine and CT head negative Venous duplex left leg negative Will transfuse 1 unit PRBC Start IV fluids normal saline at 75 cc/h Replaced magnesium, Kayexalate and calcium gluconate given for hyperkalemia Continue to monitor him in ICU Will try to taper Levophed. Follow-up orthopedics for further recommendations Will start on cardiac diet today. 02/20/24 Labs reviewed, hemoglobin 7.1, s/p 2 units PRBC. Creatinine trending down to 1.7. Blood pressure trend noted, currently blood pressure 97/52 which is his baseline at home Going for right hip surgery this afternoon. Plan to transfuse 1 more unit of packed red blood cells. Anticoagulation on hold for surgery. Still continues to have hyponatremia at 128. On IV normal saline at 75 cc/h. 02/21/24 Labs reviewed, hemoglobin stable at 7.3, creatinine stable at 1.7, baseline is 1.5. He is still on IV Zyvox and cefepime. Blood cultures negative so far, urine culture negative. Will de-escalate antibiotics. Will do IV cefazolin 1 g every 8 hours for now He is s/p internal fixation of left femoral intertrochanteric fracture. Will start him on DVT prophylaxis Lovenox 30 mg daily. Monitor CBC. Continue to monitor in ICU for today and will transfer to [facility] in a.m. 02/22/24 Labs reviewed, hemoglobin was 6.9, received 1 unit PRBC. Will recheck CBC at 6 PM today. Creatinine 1.5 at baseline, hyponatremia stable at 130. WBC 6.3. Continue IV cefazolin 1 g every 8 hours for now. Urine culture and blood culture negative so far Continue subcutaneous Lovenox for DVT prophylaxis. Will continue to monitor hemoglobin and for bleeding. Transfer to [facility] for further management Will keep following orthopedics for further recommendations. 02/23/24 Has past medical history of COPD, active smoker, history of alcoholism, drinks daily, history of CHF, history of CAD, peripheral vascular disease, history of GI bleed, history of gastric antral ulcer, not on anticoagulant therapy, afib. He is s/p day 3 of left hip intertrochanteric femur fracture s/p ORIF with cephalomedullary nail. Has left hip hematoma postoperatively likely because of preop blood thinners including Plavix. CBC stable hence will continue to monitor. He was also found to be in A-fib with RVR and 1 30-1 40s yesterday and today, improved with IV and p.o. metoprolol. EKG done on 2 occasions showed A-fib with RVR. Will resume home medications amiodarone and metoprolol. Will continue to hold Plavix and aspirin given left hip hematoma but continue with DVT prophylaxis with subcutaneous Lovenox. Hemoglobin today 7.9, creatinine improved to 1.2. Currently heart rate in 80s. Denies any new complaints. Will need case management for discharge planning to subacute facility. 02/24/24 He is s/p day 4 of left hip intertrochanteric femur fracture s/p ORIF with cephalomedullary nail. Left hip hematoma stable. CBC showed stable hemoglobin at 7.7. A-fib with RVR resolved with home dose of p.o. metoprolol 50 mg twice daily and amiodarone. But had an episode of pulmonary edema likely secondary to A-fib with RVR, had shortness of breath yesterday, chest x-ray revealed pulmonary edema. Received 1 dose of IV Lasix 40 mg. Feeling better this morning, will continue to monitor. Aspirin and Plavix still on hold secondary to left hip hematoma but will continue with subcutaneous Lovenox for DVT prophylaxis. Also antibiotics switched from IV cefazolin to IV ceftriaxone since UA was positive. Creatinine stable at 1.2. 02/25/24 He is s/p day 5 of left hip repair. Left hip hematoma stable. Hemoglobin stable at 7.9. He has been normotensive and rate controlled with home medication metoprolol, amiodarone and Lasix. Chest x-ray yesterday again revealed pulmonary edema. Chest x-ray today looks improved. Will continue home medication Lasix. Continue IV ceftriaxone for UTI till 02/27 to a total of 5 days. Creatinine trending up since starting Lasix to 1.5 which is his baseline. Will continue to monitor. Awaiting case management for discharge planning. 02/26/24 He is s/p day 6 of left hip repair. Left hip hematoma resolving. Hemoglobin improved to 8.2 Creatinine stable at 1.5. Continue IV ceftriaxone for UTI and aspiration pneumonia. A-fib controlled with rate of 58-62. Continue current management. Repeat chest x-ray in a.m. will follow-up case management on Wednesday for discharge planning. 02/27/24 He is s/p day 7 of left hip repair. No labs done today since he is hemodynamically stable and labs stable for the last 2 days. Will continue IV ceftriaxone for UTI and aspiration pneumonia till 03/01. Aspirin and Plavix still on hold due to left hip hematoma. Will continue subcutaneous Lovenox for DVT prophylaxis. Has to continue subcutaneous Lovenox for DVT prophylaxis on discharge to subacute facility for 30 days post hip repair. Chest x-ray showed fluid overload which is unchanged and stable. A-fib now rate controlled. Continue current management. Awaiting case management for discharge planning. Attestations Medical Necessity Statement*: Awaiting case management for discharge planning Time Spent in Patient Care: 15 minutes Coding Level of Care Code Acute Code for Chg Fwd Diagnoses Closed fracture of left hip S72.002A Encounter type: initial encounter Anemia D64.9 Acute hyponatremia E87.1 Hyperkalemia E87.5 Chronic diastolic congestive heart failure I50.32 Heart failure chronicity: chronic Heart failure type: diastolic Benign prostatic hyperplasia with incomplete bladder emptying N40.1; R39.14 Lower urinary tract symptom presence: symptoms present Lower urinary tract symptom detail: incomplete bladder emptying Coronary artery disease involving [place] coronary artery of [place] heart without angina pectoris I25.10 Coronary Disease-Associated Artery/Lesion type: [place] artery [place] vs. transplanted heart: [place] heart Associated angina: without angina Paroxysmal atrial fibrillation I48.0 Atrial fibrillation type: paroxysmal Alcohol abuse F10.10 Acute on chronic congestive heart failure with left ventricular diastolic dysfunction I50.33 Time Spent (min) 15
[2024-02-27] MEDS: tamsulosin 0.4 mg Capsule 0.8 MG PO (17:40)
[2024-02-27] MEDS: sennosides 8.6 mg Tablet 17.2 MG PO (20:26)
[2024-02-28] VITALS (15 sets, daily range): BP systolic 122–158; BP diastolic 76–98; PULSE 57–85; RESP 16–22; TEMP 36.4–36.6; O2SAT 94–99
[2024-02-28] MEDS: ipratropium-albuterol 3 mL Neb INHALATION ×6 (00:17→21:16)
[2024-02-28] MEDS: budesonide 0.5 mg/2 mL Neb INHALATION ×2 (08:22→21:16)
[2024-02-28] MEDS: metoprolol tartrate 50 mg Tablet PO (09:10)
[2024-02-28] MEDS: atorvastatin 40 mg Tablet PO (09:10)
[2024-02-28] MEDS: iron polysaccharide complex 150 mg Capsule PO ×2 (09:10→17:53)
[2024-02-28] MEDS: multivitamin therapeutic Tablet 1 TAB PO (09:10)
[2024-02-28] MEDS: folic acid 1 mg Tablet PO (09:10)
[2024-02-28] MEDS: calcium carb-vit d 600mg/400unit 1 Tablet 1 EACH PO ×2 (09:10→17:52)
[2024-02-28] MEDS: amiodarone 200 mg Tablet 400 MG PO (09:10)
[2024-02-28] MEDS: docusate sodium 100 mg Capsule PO ×2 (09:10→17:53)
[2024-02-28] MEDS: cefTRIAXone 1,000 mg SDV 1000 MG IVP (09:10)
[2024-02-28] MEDS: thiamine 100 mg Tablet PO (09:11)
[2024-02-28] MEDS: FUROsemide 40 mg Tablet PO (09:11)
[2024-02-28] MEDS: BuSPIRONE 10 mg Tablet 5 MG PO ×2 (09:11→17:53)
[2024-02-28] MEDS: oxyCODONE-APAP 5-325 mg Tablet 1 TAB PO ×2 (09:11→17:53)
[2024-02-28] MEDS: citalopram 20 mg Tablet PO (09:11)
--- NOTE | 2024-02-28 10:04 | PC.SOCIAL ---
IMM Update pg 2 of IMM Updated and reviewed w/ patient. Copy provided and copy dated, initialed and placed in chart.
--- NOTE | 2024-02-28 12:58 | PM.PN ---
Subjective Subjective: Patient states he gets short of breath when he tries to exert himself. Shortness of breath is out of proportion to his usual self. Denies any PE or DVT in the past. Has been a smoker in the past however quit 12 years ago. Is on continue DuoNeb treatment and does have incentive spirometer ordered as well. On 4 L nasal cannula at home usually. However on 2 L right now. He says he has been coughing a lot more than usual. Vitals/I&O/Wt Last Vital Signs Temp 97.8 F 02/28/24 11:50 Pulse 73 02/28/24 11:50 Resp 19 H 02/28/24 11:50 BP 122/76 02/28/24 11:50 Pulse Ox 96 02/28/24 11:50 O2 Del Method Nasal Cannula 02/28/24 11:50 O2 Flow Rate 2 02/28/24 11:09 FiO2 36 02/26/24 03:29 02/27/24 02/28/24 02/28/24 22:59 06:59 14:59 Intake Total 720 / 1920 360 / 2280 600 / 600 Output Total 250 / 700 400 / 1100 550 / 550 Balance 470 / 1220 -40 / 1180 50 / 50 Weight last 48 hrs Weight 86.046 kg Weight 89.584 kg Physical Exam Narrative: He is alert awake oriented x 3, frail, not in acute distress, on nasal cannula Chest mainly clear to auscultation bilaterally, decreased bilateral air entry. Cardiovascular normal heart sounds no murmurs Abdomen soft nontender nondistended normal bowel sounds Extremities no edema noted bilateral lower extremities, left hip hematoma resolving Urinary Catheter Management: Ashley: Cath Placed During This Visit: yes, but has since been removed by the nurse Reason for Continuing Indwelling Catheter: Decision to DC Catheter Urinary Catheter Date of Insertion: 02/19/24 Urinary Catheter Time of Insertion: 00:12 Date Urinary Catheter Removed: 02/23/24 Time Urinary Catheter Discontinued: 09:53 Data 02/26/24 04:24 02/26/24 04:24 A&P Assessment and plan (1) Closed fracture of left hip: Left hip fracture secondary to mechanical fall Strict bedrest Neurovascular checks Ashley catheter for prolonged immobilization Orthopedic surgery consulted, n.p.o. after midnight for evaluation Hold Plavix Multimodal pain control Bowel regiment Qualifiers: Encounter type: initial encounter Qualified Code(s): S72.002A - Fracture of unspecified part of neck of left femur, initial encounter for closed fracture (2) Anemia: Acute on chronic anemia, suspected anemia of chronic disease/inflammatory anemia Patient consents to transfusion 1 packed blood red cell May need Lasix if he becomes fluid overloaded with transfusion Backorder iron labs Repeat labs in a.m. (3) Acute hyponatremia: Acute on chronic hyponatremia, could be culprit to his recurrent falls He appears hypervolemic on exam Check urine electrolytes, TSH Repeat labs in a.m. (4) Hyperkalemia: Mild hyperkalemia Received 1 L IV fluid bolus in ED Telemetry monitoring Recheck labs in a.m. (5) CHF (congestive heart failure): Chronic heart failure with preserved ejection fraction of 55 to 60% Strict I's and O's Daily weights Patient is currently not in exacerbation, but remains at risk with blood transfusion tonight Qualifiers: Heart failure chronicity: chronic Heart failure type: diastolic Qualified Code(s): I50.32 - Chronic diastolic (congestive) heart failure (6) BPH (benign prostatic hyperplasia): Plan to place Ashley catheter Plan to continue home medications after his list is updated Qualifiers: Lower urinary tract symptom presence: symptoms present Lower urinary tract symptom detail: incomplete bladder emptying Qualified Code(s): N40.1 - Benign prostatic hyperplasia with lower urinary tract symptoms; R39.14 - Feeling of incomplete bladder emptying (7) CAD (coronary artery disease): Hold Plavix for surgery Plan to resume other home medications after list is updated Qualifiers: Coronary Disease-Associated Artery/Lesion type: [place] artery [place] vs. transplanted heart: [place] heart Associated angina: without angina Qualified Code(s): I25.10 - Atherosclerotic heart disease of [place] coronary artery without angina pectoris (8) Afib: Atrial fibrillation, unspecified type Check EKG for preop assessment Not on therapeutic anticoagulation per prior home medication list Qualifiers: Atrial fibrillation type: paroxysmal Qualified Code(s): I48.0 - Paroxysmal atrial fibrillation (9) Alcohol abuse: CIWA protocol (10) Acute on chronic congestive heart failure with left ventricular diastolic dysfunction: Plan DVT prophylaxis: SCDs 02/19/24 Labs reviewed showed WBC 7.5, hemoglobin 6.7, platelets 183, sodium 126, potassium 5.3, creatinine 1.8 baseline is 1.5, magnesium 1.5 Chest x-ray negative Had a 2D echo in 07/20 which showed biatrial dilatation, ascending aortic dilatation, EF of 55 to 60% CT cervical spine and CT head negative Venous duplex left leg negative Will transfuse 1 unit PRBC Start IV fluids normal saline at 75 cc/h Replaced magnesium, Kayexalate and calcium gluconate given for hyperkalemia Continue to monitor him in ICU Will try to taper Levophed. Follow-up orthopedics for further recommendations Will start on cardiac diet today. 02/20/24 Labs reviewed, hemoglobin 7.1, s/p 2 units PRBC. Creatinine trending down to 1.7. Blood pressure trend noted, currently blood pressure 97/52 which is his baseline at home Going for right hip surgery this afternoon. Plan to transfuse 1 more unit of packed red blood cells. Anticoagulation on hold for surgery. Still continues to have hyponatremia at 128. On IV normal saline at 75 cc/h. 02/21/24 Labs reviewed, hemoglobin stable at 7.3, creatinine stable at 1.7, baseline is 1.5. He is still on IV Zyvox and cefepime. Blood cultures negative so far, urine culture negative. Will de-escalate antibiotics. Will do IV cefazolin 1 g every 8 hours for now He is s/p internal fixation of left femoral intertrochanteric fracture. Will start him on DVT prophylaxis Lovenox 30 mg daily. Monitor CBC. Continue to monitor in ICU for today and will transfer to [facility] in a.m. 02/22/24 Labs reviewed, hemoglobin was 6.9, received 1 unit PRBC. Will recheck CBC at 6 PM today. Creatinine 1.5 at baseline, hyponatremia stable at 130. WBC 6.3. Continue IV cefazolin 1 g every 8 hours for now. Urine culture and blood culture negative so far Continue subcutaneous Lovenox for DVT prophylaxis. Will continue to monitor hemoglobin and for bleeding. Transfer to [facility] for further management Will keep following orthopedics for further recommendations. 02/23/24 Has past medical history of COPD, active smoker, history of alcoholism, drinks daily, history of CHF, history of CAD, peripheral vascular disease, history of GI bleed, history of gastric antral ulcer, not on anticoagulant therapy, afib. He is s/p day 3 of left hip intertrochanteric femur fracture s/p ORIF with cephalomedullary nail. Has left hip hematoma postoperatively likely because of preop blood thinners including Plavix. CBC stable hence will continue to monitor. He was also found to be in A-fib with RVR and 1 30-1 40s yesterday and today, improved with IV and p.o. metoprolol. EKG done on 2 occasions showed A-fib with RVR. Will resume home medications amiodarone and metoprolol. Will continue to hold Plavix and aspirin given left hip hematoma but continue with DVT prophylaxis with subcutaneous Lovenox. Hemoglobin today 7.9, creatinine improved to 1.2. Currently heart rate in 80s. Denies any new complaints. Will need case management for discharge planning to subacute facility. 02/24/24 He is s/p day 4 of left hip intertrochanteric femur fracture s/p ORIF with cephalomedullary nail. Left hip hematoma stable. CBC showed stable hemoglobin at 7.7. A-fib with RVR resolved with home dose of p.o. metoprolol 50 mg twice daily and amiodarone. But had an episode of pulmonary edema likely secondary to A-fib with RVR, had shortness of breath yesterday, chest x-ray revealed pulmonary edema. Received 1 dose of IV Lasix 40 mg. Feeling better this morning, will continue to monitor. Aspirin and Plavix still on hold secondary to left hip hematoma but will continue with subcutaneous Lovenox for DVT prophylaxis. Also antibiotics switched from IV cefazolin to IV ceftriaxone since UA was positive. Creatinine stable at 1.2. 02/25/24 He is s/p day 5 of left hip repair. Left hip hematoma stable. Hemoglobin stable at 7.9. He has been normotensive and rate controlled with home medication metoprolol, amiodarone and Lasix. Chest x-ray yesterday again revealed pulmonary edema. Chest x-ray today looks improved. Will continue home medication Lasix. Continue IV ceftriaxone for UTI till 02/27 to a total of 5 days. Creatinine trending up since starting Lasix to 1.5 which is his baseline. Will continue to monitor. Awaiting case management for discharge planning. 02/26/24 He is s/p day 6 of left hip repair. Left hip hematoma resolving. Hemoglobin improved to 8.2 Creatinine stable at 1.5. Continue IV ceftriaxone for UTI and aspiration pneumonia. A-fib controlled with rate of 58-62. Continue current management. Repeat chest x-ray in a.m. will follow-up case management on Wednesday for discharge planning. 02/27/24 He is s/p day 7 of left hip repair. No labs done today since he is hemodynamically stable and labs stable for the last 2 days. Will continue IV ceftriaxone for UTI and aspiration pneumonia till 03/01. Aspirin and Plavix still on hold due to left hip hematoma. Will continue subcutaneous Lovenox for DVT prophylaxis. Has to continue subcutaneous Lovenox for DVT prophylaxis on discharge to subacute facility for 30 days post hip repair. Chest x-ray showed fluid overload which is unchanged and stable. A-fib now rate controlled. Continue current management. Awaiting case management for discharge planning. 02/28/2024 -Patient has been having shortness of breath on exertion. He was a smoker and quit 12 years ago. Does have underlying emphysema. ? Chest x-ray does show moderate pulmonary vascular congestion versus a pleural effusion. ? Creatinine 1.5. Will hold off on contrast CT however will get a CT chest without contrast ? Will treat for presumed COPD exacerbation. Solu-Medrol 40 every 8 hours, azithromycin 500 daily ? Continue incentive spirometer, DuoNeb every 6 hours. ? Subcutaneous Lovenox to be continued for DVT prophylaxis secondary to hip fracture. ? Continue to hold aspirin and Plavix. ? Safe discharge planning ? Check bilateral lower extremity Dopplers. Attestations Medical Necessity Statement*: Will treat as COPD exacerbation versus underlying cardiac cause. ? Await CT chest ? Will need safe discharge planning prior to discharge. ? Diagnoses Closed fracture of left hip S72.002A Encounter type: initial encounter Anemia D64.9 Acute hyponatremia E87.1 Hyperkalemia E87.5 Chronic diastolic congestive heart failure I50.32 Heart failure chronicity: chronic Heart failure type: diastolic Benign prostatic hyperplasia with incomplete bladder emptying N40.1; R39.14 Lower urinary tract symptom presence: symptoms present Lower urinary tract symptom detail: incomplete bladder emptying Coronary artery disease involving [place] coronary artery of [place] heart without angina pectoris I25.10 Coronary Disease-Associated Artery/Lesion type: [place] artery [place] vs. transplanted heart: [place] heart Associated angina: without angina Paroxysmal atrial fibrillation I48.0 Atrial fibrillation type: paroxysmal Alcohol abuse F10.10 Acute on chronic congestive heart failure with left ventricular diastolic dysfunction I50.33
--- NOTE | 2024-02-28 13:00 | CT_ITS ---
WS: [id number] CT CHEST TECHNIQUE: Noncontrast CT of the chest with coronal and sagittal reformatted images. CLINICAL INFORMATION: shortness of breath COMPARISON: None. DLP: 490.[address] scans at [facility] use at least one of these dose optimization techniques: automated e xposure control; mA and/or kV adjustment per patient size (includes targeted exams where dose is matc hed to clinical indication); or iterative reconstruction. FINDINGS: Advanced chronic emphysematous changes. Small bilateral pleural effusions with compressive atelecta sis in the lung bases. Subtotal consolidation LEFT lower lobe with air bronchograms. Recommend correl ation for pneumonia. Aneurysmal ascending thoracic aorta measuring 4.7 cm. Aortic calcification. Coronary calcification. N o mediastinal or hilar lymphadenopathy. No axillary lymphadenopathy. Adrenal glands are normal. Chronic bilateral rib fractures. Small LEFT upper pole renal cyst. Thoracic kyphosis with chronic compression fractures in the mid and upper thoracic spine with anterio r wedging. Partially visualized aneurysmal abdominal aorta measuring 4.1 x 4.7 cm AP by transverse. Compression fractures with anterior wedging T5-T7. Compression at T7 has progressed compared to previ ous. New compression of T9 which also appears chronic. CT/CT chest wo con [id number] IMPRESSION: 1. Aneurysmal ascending thoracic aorta measuring 4.7 cm similar to previous. 2. Saccular partially visualized infrarenal abdominal aneurysm measuring 4.1 x 4.7 cm also similar to previous. 3. Small bilateral pleural effusions with subtotal consolidation LEFT lower lo be. Recommend correlation for pneumonia. 4. Thoracic kyphosis with multiple chronic appearing compression fractures brandon e of which are new compared to 03/11/2023 but have a chronic appearance.
--- NOTE | 2024-02-28 13:05 | USCV_ITS ---
Saman Jamie Age: 73 Gender: M : 1950 Exam Date: 02/28/2024 18:40 Ordering Phys: Mayda Hobbs MD Technologist: YOLIE Exam Location: [facility] – [place] Indication: r/o dvt Patient is s/p LT HIP ORIF, confused and recovering in 269-1. HISTORY: r/o dvt Patient is s/p LT HIP ORIF, confused and recovering in 269-1. PROCEDURES: Venous duplex imaging was performed in bilateral lower extremities. The following venous structures were evaluated: common femoral vein, profunda vein, proximal portion of the greater saphenous vein, superficial femoral vein, and the popliteal vein. In addition, the posterior tibial veins were evaluated. Serial compression, augmentation maneuvers, and spectral Doppler flow evaluation were performed, which were normal. Bilaterally, the common femoral, superficial femoral, profunda femoral, popliteal, posterior tibial, and greater saphenous veins were identified and interrogated in the standard fashion. These veins were found to be easily compressible with spontaneous blood flow. No evidence of thrombus noted. CONCLUSIONS No evidence of right lower extremity DVT. No evidence of left lower extremity DVT. Luis A Triplett MD (Electronically Signed) Final Date: 29 February 2024 11:49 S
--- NOTE | 2024-02-28 13:06 | ECG_ITS ---
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 Measurements Intervals [place] Rate: 64 P: 82 CO: 304 QRS: 54 QRSD: 106 T: 12 QT: 439 QTc: 456 Interpretive Statements SINUS RHYTHM WITH FIRST DEGREE AV BLOCK LOW QRS VOLTAGE IN EXTREMITY LEADS [QRS DEFLECTION < 0.5 mV IN LIMB LEADS] MODERATE T-WAVE ABNORMALITY, CONSIDER ANTERIOR ISCHEMIA [-0.1+ mV T-WAVE IN V3/V4] Compared to ECG 02/23/2024 10:35:12 First degree AV block now present Low QRS voltage now present T-wave abnormality now present Possible ischemia now present Atrial fibrillation no longer present Electronically Signed On 02-29-2024 21:39:44 TALCER by Gamaliel Varela M.D. [id number]
--- NOTE | 2024-02-28 13:06 | USCV_ITS ---
Jamie Davison Age: 73 Gender: M : 1950 Exam Date: 02/28/2024 19:10 Ordering Phys: Mayda Hobbs MD Technologist: YOLIE Exam Location: [facility] [place] Indication: GREWAL s/p LEFT HIP ORIF. Patient is confused and recovering in 269-1. BP: 131 / 82 HR: 62 Rhythm: Sinus Technical Quality: Adequate MEASUREMENTS (Male / Female) Normal Values 2D ECHO LV Diastolic Diameter PLAX 4.2 cm 4.2 - 5.9 / 3.9 - 5.3 cm IVS Diastolic Thickness 1.8 cm 0.6 - 1.0 / 0.6 - 0.9 cm IVS Systolic Thickness 2.1 cm LVPW Diastolic Thickness 1.4 cm 0.6 - 1.0 / 0.6 - 0.9 cm LVPW Systolic Thickness 1.7 cm LVOT Diameter 2.0 cm LV Ejection Fraction 2D Teich 65.8 % LV Ejection Fraction MOD 4C 55.4 % LV Ejection Fraction MOD 2C 59.1 % LV Ejection Fraction 2C AL 59.8 % LA Diameter 4.4 cm Aorta at Sinotubular Diameter 2.8 cm IVC Diameter 1.3 cm M-MODE LA Ao Ratio MM 1.2 AV Cusp Separation MM 2.2 cm DOPPLER AV Peak Velocity 73.0 cm/s LVOT Peak Velocity 50.0 cm/s AV Area Cont Eq vti 2.2 cm squared AV Area Cont Eq pk 2.2 cm squared MV Peak Velocity 81.0 cm/s MV Area PHT 4.7 cm squared Mitral E to A Ratio 0.9 TV Peak Velocity 284.5 cm/s TR Peak Velocity 299.0 cm/s TR Peak Gradient 35.8 mmHg TV Peak E Velocity 48.0 cm/s PV Peak Velocity 80.0 cm/s FINDINGS Left Ventricle Left ventricle is normal in size. LV systolic function is normal with EF of 55 to 60%. No regional wall motion abnormalities are seen. Right Ventricle Normal function. Right Atrium Normal in size Left Atrium Dilated Mitral Valve Structurally normal mitral valve. Trace mitral regurgitation Aortic Valve Aortic valve is thickened. No significant stenosis Tricuspid Valve Mild tricuspid regurgitation. RVSP is 35 to 40 mmHg. This is consistent with mild pulmonary hypertension Pulmonic Valve Mild pulmonic regurgitation. Pericardium Normal Aorta Normal in size IVC Appears to be normal CONCLUSIONS Technically limited quality echocardiogram. LV systolic function is normal with EF of 55 to 60% Left atrial dilation Trace mitral regurgitation Mild tricuspid regurgitation Mild pulmonary hypertension Mild pulmonic regurgitation Compared to prior echocardiogram from 06/2023, no significant changes are seen Gamaliel Varela MD (Electronically Signed) Final Date: 29 February 2024 14:42 S
[2024-02-28] MEDS: methylPREDNISolone sod succ 40 mg/mL INJ IVP ×2 (13:55→21:54)
[2024-02-28] MEDS: FUROsemide 10 mg/mL SDV 4mL 40 MG IVP (13:55)
[2024-02-28 13:58] LABS: Troponin(5th) Baseline 47 ng/L (0-15)
--- NOTE | 2024-02-28 15:12 | ECG_ITS ---
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 Measurements Intervals [place] Rate: 58 P: 79 IA: 288 QRS: 16 QRSD: 104 T: -5 QT: 455 QTc: 450 Interpretive Statements SINUS BRADYCARDIA WITH FIRST DEGREE AV BLOCK LOW QRS VOLTAGE IN EXTREMITY LEADS [QRS DEFLECTION < 0.5 mV IN LIMB LEADS] Compared to ECG 02/28/2024 13:18:30 Sinus rhythm no longer present T-wave abnormality no longer present Possible ischemia no longer present Electronically Signed On 02-29-2024 21:57:46 NIGHTMAN by Gamaliel Varela M.D. [id number]
[2024-02-28] MEDS: enoxaparin 40 mg/0.4 mL Syringe SUBCUT (16:00)
[2024-02-28 16:11] LABS: Troponin 5 2HR 46.29 ng/L (0-15); Troponin 5 2HR Delta -0.71 ABS# (0-10)
[2024-02-28] MEDS: tamsulosin 0.4 mg Capsule 0.8 MG PO (17:52)
[2024-02-28] MEDS: guaiFENesin 100 mg/5 mL UDC 10 mL 200 MG PO (17:52)
[2024-02-28] MEDS: vancomycin 2,000 MG/400 ML PIGGYBACK 200 MG IV (18:17)
[2024-02-28 19:47] LABS: Troponin 5 6HR 40.51 ng/L (0-15)
[2024-02-28 19:57] LABS: Troponin 5 6HR Delta -6.49 ng/L (0-12)
--- NOTE | 2024-02-28 21:27 | ECG_ITS ---
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 Measurements Intervals [place] Rate: 65 P: 40 [place]: 289 QRS: 16 QRSD: 106 T: -9 QT: 473 QTc: 494 Interpretive Statements SINUS RHYTHM WITH FIRST DEGREE AV BLOCK LOW QRS VOLTAGE IN EXTREMITY LEADS [QRS DEFLECTION < 0.5 mV IN LIMB LEADS] MODERATE T-WAVE ABNORMALITY, CONSIDER ANTERIOR ISCHEMIA [-0.1+ mV T-WAVE IN V3/V4] Compared to ECG 02/28/2024 15:12:37 T-wave abnormality now present Possible ischemia now present Sinus bradycardia no longer present Electronically Signed On 02-29-2024 21:55:32 PHLEBOTOMY COORDINATOR by Gamaliel Varela M.D. [id number]
[2024-02-28] MEDS: piperacillin-tazobactam 3.375 GM in sodium chloride 0.9% (plus) 50 ML IV (21:54)
[2024-02-28] MEDS: sennosides 8.6 mg Tablet 17.2 MG PO (21:54)
[2024-02-29] VITALS (17 sets, daily range): BP systolic 114–148; BP diastolic 57–87; PULSE 63–82; RESP 16–22; TEMP 36.3–36.5; O2SAT 92–96
[2024-02-29] MEDS: ipratropium-albuterol 3 mL Neb INHALATION ×6 (01:42→21:52)
[2024-02-29 06:31] LABS: Basophils % 0.1 %; Lymphocytes # 0.4 10^3/uL (0.8-4.8); Lymphocytes % 5.2 %; Mean Corpuscular HGB Conc 30.7 g/dL (30-55); Mean Corpuscular Hemoglobin 29.2 pg (27-33); Mean Corpuscular Volume 94.9 fl (82-101); Mean Platelet Volume 9.1 fL (7.4-10.4); Monocytes # 0.2 10^3/uL (0.2-0.9); Monocytes % 3.5 %; Neutrophils # 6.15 10^3/uL (1.8-7.7); Neutrophils % 89.7 %; Nucleated Red Blood Cells % 0 %; Platelet Count 228 10^3/cmm (157-399); Red Blood Count 2.95 10^6/uL (3.85-5.65); Red Cell Distribution Width 17.1 % (12.1-15.1); White Blood Count 6.86 10^3/uL (3.29-11.43)
[2024-02-29] MEDS: methylPREDNISolone sod succ 40 mg/mL INJ IVP ×3 (06:43→20:02)
[2024-02-29] MEDS: piperacillin-tazobactam 3.375 GM in sodium chloride 0.9% (plus) 50 ML IV ×3 (06:44→21:52)
[2024-02-29] MEDS: VANCOMYCIN ADD-Vantage 750 MG in 0.9% NaCl ADD-Vantage 250 ML 250 MG IV ×2 (06:44→17:19)
[2024-02-29 06:51] LABS: Anion Gap 11.2 (5-19); Blood Urea Nitrogen 27 mg/dL (8-23); Calcium 9.4 mg/dL (8.5-10.5); Carbon Dioxide 33 mmol/L (22-29); Chloride 93 mmol/L (98-107); Creatinine Clr Calc Pharmacy 49.2618; Glucose 131 mg/dL (65-115); Magnesium 1.4 mg/dL (1.7-2.3); Osmolality Calculated 283 mOsm/kg (285-295); Potassium 4.2 mmol/L (3.5-5.1); Sodium 133 mmol/L (136-145)
[2024-02-29] MEDS: budesonide 0.5 mg/2 mL Neb INHALATION ×2 (08:32→21:52)
--- NOTE | 2024-02-29 08:46 | PHA.VACGOAL ---
Vancomycin Goal - Goal Vancomycin Goal:: 10-15 mg/L Vancomycin Indication:: Other - Therapy Current therapy:: Pip/Tazo Day of therpy:: Day []of [] . Actual body weight (kg): 186 lb 14.4 oz - Data Labs: WBC 6.86 10^3/uL (3.29-11.43) 02/29/24 06:12 RBC 2.95 10^6/uL (3.85-5.65) L 02/29/24 06:12 Hgb 8.60 g/dL (11.27-16.99) L 02/29/24 06:12 Hct 28.0 % (37-53) L 02/29/24 06:12 MCV 94.9 fl (82-101) 02/29/24 06:12 MCH 29.2 pg (27-33) 02/29/24 06:12 MCHC 30.7 g/dL (30-55) 02/29/24 06:12 RDW 17.1 % (12.1-15.1) H 02/29/24 06:12 Sodium 133 mmol/L (136-145) L 02/29/24 06:12 Potassium 4.2 mmol/L (3.5-5.1) 02/29/24 06:12 Chloride 93 mmol/L (98-107) L 02/29/24 06:12 Carbon Dioxide 33 mmol/L (22-29) H 02/29/24 06:12 Anion Gap 11.2 (5-19) 02/29/24 06:12 BUN 27 mg/dL (8-23) H 02/29/24 06:12 Creatinine 1.5 mg/dL (0.7-1.2) H 02/29/24 06:12 GFR Calculation Not Reportable 02/29/24 06:12 Last dialysis session:: N/A Treatment plan:: new consult Regimen:: 2g loading dose given Maintenance dose of 750 mg Q12H Follow up:: WILL CONTINUE TO MONITOR AND FOLLOW UP DAILY
[2024-02-29] MEDS: iron polysaccharide complex 150 mg Capsule PO ×2 (08:49→17:19)
[2024-02-29] MEDS: docusate sodium 100 mg Capsule PO ×2 (08:49→17:18)
[2024-02-29] MEDS: BuSPIRONE 10 mg Tablet 5 MG PO ×2 (08:50→17:19)
[2024-02-29] MEDS: thiamine 100 mg Tablet PO (08:50)
[2024-02-29] MEDS: citalopram 20 mg Tablet PO (08:50)
[2024-02-29] MEDS: calcium carb-vit d 600mg/400unit 1 Tablet 1 EACH PO ×2 (08:50→17:19)
[2024-02-29] MEDS: multivitamin therapeutic Tablet 1 TAB PO (08:50)
[2024-02-29] MEDS: folic acid 1 mg Tablet PO (08:50)
[2024-02-29] MEDS: magnesium sulfate premix 2 GM/50 ML PIGGYBACK IV (08:50)
[2024-02-29] MEDS: atorvastatin 40 mg Tablet PO (08:50)
[2024-02-29] MEDS: amiodarone 200 mg Tablet 400 MG PO (08:50)
[2024-02-29] MEDS: oxyCODONE-APAP 5-325 mg Tablet 1 TAB PO (08:59)
[2024-02-29] MEDS: FUROsemide 10 mg/mL SDV 4mL 40 MG IVP ×2 (12:13→23:15)
--- NOTE | 2024-02-29 12:24 | PM.PN ---
Subjective Subjective: Patient subjectively starting to feel slightly better. Vitals/I&O/Wt Last Vital Signs Temp 97.7 F 02/29/24 12:20 Pulse 77 02/29/24 12:20 Resp 16 02/29/24 12:20 BP 114/73 02/29/24 12:20 Pulse Ox 93 02/29/24 12:20 O2 Del Method Nasal Cannula 02/29/24 12:20 O2 Flow Rate 2 02/29/24 11:19 FiO2 36 02/28/24 13:20 02/28/24 02/29/24 02/29/24 22:59 06:59 14:59 Intake Total 760 / 1360 410 / 1770 830 / 830 Output Total 1300 / 1850 200 / 2050 450 / 450 Balance -540 / -490 210 / -280 380 / 380 Weight last 48 hrs Weight 84.776 kg Weight 86.046 kg Physical Exam Narrative: He is alert awake oriented x 3, frail, not in acute distress, on nasal cannula Chest mainly clear to auscultation bilaterally, decreased bilateral air entry. Cardiovascular normal heart sounds no murmurs Abdomen soft nontender nondistended normal bowel sounds Extremities no edema noted bilateral lower extremities, left hip hematoma resolving Urinary Catheter Management: Ashley: Cath Placed During This Visit: yes, but has since been removed by the nurse Reason for Continuing Indwelling Catheter: Decision to DC Catheter Urinary Catheter Date of Insertion: 02/19/24 Urinary Catheter Time of Insertion: 00:12 Date Urinary Catheter Removed: 02/23/24 Time Urinary Catheter Discontinued: 09:53 Data 02/29/24 06:12 02/29/24 06:12 A&P Assessment and plan (1) Closed fracture of left hip: Left hip fracture secondary to mechanical fall Strict bedrest Neurovascular checks Ashley catheter for prolonged immobilization Orthopedic surgery consulted, n.p.o. after midnight for evaluation Hold Plavix Multimodal pain control Bowel regiment Qualifiers: Encounter type: initial encounter Qualified Code(s): S72.002A - Fracture of unspecified part of neck of left femur, initial encounter for closed fracture (2) Anemia: Acute on chronic anemia, suspected anemia of chronic disease/inflammatory anemia Patient consents to transfusion 1 packed blood red cell May need Lasix if he becomes fluid overloaded with transfusion Backorder iron labs Repeat labs in a.m. (3) Acute hyponatremia: Acute on chronic hyponatremia, could be culprit to his recurrent falls He appears hypervolemic on exam Check urine electrolytes, TSH Repeat labs in a.m. (4) Hyperkalemia: Mild hyperkalemia Received 1 L IV fluid bolus in ED Telemetry monitoring Recheck labs in a.m. (5) CHF (congestive heart failure): Chronic heart failure with preserved ejection fraction of 55 to 60% Strict I's and O's Daily weights Patient is currently not in exacerbation, but remains at risk with blood transfusion tonight Qualifiers: Heart failure chronicity: chronic Heart failure type: diastolic Qualified Code(s): I50.32 - Chronic diastolic (congestive) heart failure (6) BPH (benign prostatic hyperplasia): Plan to place Ashley catheter Plan to continue home medications after his list is updated Qualifiers: Lower urinary tract symptom presence: symptoms present Lower urinary tract symptom detail: incomplete bladder emptying Qualified Code(s): N40.1 - Benign prostatic hyperplasia with lower urinary tract symptoms; R39.14 - Feeling of incomplete bladder emptying (7) CAD (coronary artery disease): Hold Plavix for surgery Plan to resume other home medications after list is updated Qualifiers: Coronary Disease-Associated Artery/Lesion type: [place] artery [place] vs. transplanted heart: nightmute heart Associated angina: without angina Qualified Code(s): I25.10 - Atherosclerotic heart disease of nightm[place] coronary artery without angina pectoris (8) Afib: Atrial fibrillation, unspecified type Check EKG for preop assessment Not on therapeutic anticoagulation per prior home medication list Qualifiers: Atrial fibrillation type: paroxysmal Qualified Code(s): I48.0 - Paroxysmal atrial fibrillation (9) Alcohol abuse: CIWA protocol (10) Acute on chronic congestive heart failure with left ventricular diastolic dysfunction: Plan DVT prophylaxis: SCDs 02/19/24 Labs reviewed showed WBC 7.5, hemoglobin 6.7, platelets 183, sodium 126, potassium 5.3, creatinine 1.8 baseline is 1.5, magnesium 1.5 Chest x-ray negative Had a 2D echo in 07/20 which showed biatrial dilatation, ascending aortic dilatation, EF of 55 to 60% CT cervical spine and CT head negative Venous duplex left leg negative Will transfuse 1 unit PRBC Start IV fluids normal saline at 75 cc/h Replaced magnesium, Kayexalate and calcium gluconate given for hyperkalemia Continue to monitor him in ICU Will try to taper Levophed. Follow-up orthopedics for further recommendations Will start on cardiac diet today. 02/20/24 Labs reviewed, hemoglobin 7.1, s/p 2 units PRBC. Creatinine trending down to 1.7. Blood pressure trend noted, currently blood pressure 97/52 which is his baseline at home Going for right hip surgery this afternoon. Plan to transfuse 1 more unit of packed red blood cells. Anticoagulation on hold for surgery. Still continues to have hyponatremia at 128. On IV normal saline at 75 cc/h. 02/21/24 Labs reviewed, hemoglobin stable at 7.3, creatinine stable at 1.7, baseline is 1.5. He is still on IV Zyvox and cefepime. Blood cultures negative so far, urine culture negative. Will de-escalate antibiotics. Will do IV cefazolin 1 g every 8 hours for now He is s/p internal fixation of left femoral intertrochanteric fracture. Will start him on DVT prophylaxis Lovenox 30 mg daily. Monitor CBC. Continue to monitor in ICU for today and will transfer to [facility] in a.m. 02/22/24 Labs reviewed, hemoglobin was 6.9, received 1 unit PRBC. Will recheck CBC at 6 PM today. Creatinine 1.5 at baseline, hyponatremia stable at 130. WBC 6.3. Continue IV cefazolin 1 g every 8 hours for now. Urine culture and blood culture negative so far Continue subcutaneous Lovenox for DVT prophylaxis. Will continue to monitor hemoglobin and for bleeding. Transfer to [facility] for further management Will keep following orthopedics for further recommendations. 02/23/24 Has past medical history of COPD, active smoker, history of alcoholism, drinks daily, history of CHF, history of CAD, peripheral vascular disease, history of GI bleed, history of gastric antral ulcer, not on anticoagulant therapy, afib. He is s/p day 3 of left hip intertrochanteric femur fracture s/p ORIF with cephalomedullary nail. Has left hip hematoma postoperatively likely because of preop blood thinners including Plavix. CBC stable hence will continue to monitor. He was also found to be in A-fib with RVR and 1 30-1 40s yesterday and today, improved with IV and p.o. metoprolol. EKG done on 2 occasions showed A-fib with RVR. Will resume home medications amiodarone and metoprolol. Will continue to hold Plavix and aspirin given left hip hematoma but continue with DVT prophylaxis with subcutaneous Lovenox. Hemoglobin today 7.9, creatinine improved to 1.2. Currently heart rate in 80s. Denies any new complaints. Will need case management for discharge planning to subacute facility. 02/24/24 He is s/p day 4 of left hip intertrochanteric femur fracture s/p ORIF with cephalomedullary nail. Left hip hematoma stable. CBC showed stable hemoglobin at 7.7. A-fib with RVR resolved with home dose of p.o. metoprolol 50 mg twice daily and amiodarone. But had an episode of pulmonary edema likely secondary to A-fib with RVR, had shortness of breath yesterday, chest x-ray revealed pulmonary edema. Received 1 dose of IV Lasix 40 mg. Feeling better this morning, will continue to monitor. Aspirin and Plavix still on hold secondary to left hip hematoma but will continue with subcutaneous Lovenox for DVT prophylaxis. Also antibiotics switched from IV cefazolin to IV ceftriaxone since UA was positive. Creatinine stable at 1.2. 02/25/24 He is s/p day 5 of left hip repair. Left hip hematoma stable. Hemoglobin stable at 7.9. He has been normotensive and rate controlled with home medication metoprolol, amiodarone and Lasix. Chest x-ray yesterday again revealed pulmonary edema. Chest x-ray today looks improved. Will continue home medication Lasix. Continue IV ceftriaxone for UTI till 02/27 to a total of 5 days. Creatinine trending up since starting Lasix to 1.5 which is his baseline. Will continue to monitor. Awaiting case management for discharge planning. 02/26/24 He is s/p day 6 of left hip repair. Left hip hematoma resolving. Hemoglobin improved to 8.2 Creatinine stable at 1.5. Continue IV ceftriaxone for UTI and aspiration pneumonia. A-fib controlled with rate of 58-62. Continue current management. Repeat chest x-ray in a.m. will follow-up case management on Wednesday for discharge planning. 02/27/24 He is s/p day 7 of left hip repair. No labs done today since he is hemodynamically stable and labs stable for the last 2 days. Will continue IV ceftriaxone for UTI and aspiration pneumonia till 03/01. Aspirin and Plavix still on hold due to left hip hematoma. Will continue subcutaneous Lovenox for DVT prophylaxis. Has to continue subcutaneous Lovenox for DVT prophylaxis on discharge to subacute facility for 30 days post hip repair. Chest x-ray showed fluid overload which is unchanged and stable. A-fib now rate controlled. Continue current management. Awaiting case management for discharge planning. 02/28/2024 -Patient has been having shortness of breath on exertion. He was a smoker and quit 12 years ago. Does have underlying emphysema. ? Chest x-ray does show moderate pulmonary vascular congestion versus a pleural effusion. ? Creatinine 1.5. Will hold off on contrast CT however will get a CT chest without contrast ? Will treat for presumed COPD exacerbation. Solu-Medrol 40 every 8 hours, azithromycin 500 daily ? Continue incentive spirometer, DuoNeb every 6 hours. ? Subcutaneous Lovenox to be continued for DVT prophylaxis secondary to hip fracture. ? Continue to hold aspirin and Plavix. ? Safe discharge planning ? Check bilateral lower extremity Dopplers. 02/29/2024 -Venous Dopplers negative for DVT ? CT chest reviewed. Patient has evidence of pneumonia. ? Placed on vancomycin and Zosyn. ? Check procalcitonin ? Continue incentive spirometer, DuoNeb every 6 hours ? Continue subcutaneous Lovenox ? Continue to hold aspirin Plavix ? Shortness of breath has improved slightly. Attestations Medical Necessity Statement*: Continue to treat for pneumonia and patient. Patient is on IV antibiotics. Diagnoses Closed fracture of left hip S72.002A Encounter type: initial encounter Anemia D64.9 Acute hyponatremia E87.1 Hyperkalemia E87.5 Chronic diastolic congestive heart failure I50.32 Heart failure chronicity: chronic Heart failure type: diastolic Benign prostatic hyperplasia with incomplete bladder emptying N40.1; R39.14 Lower urinary tract symptom presence: symptoms present Lower urinary tract symptom detail: incomplete bladder emptying Coronary artery disease involving nightmute coronary artery of [place] heart without angina pectoris I25.10 Coronary Disease-Associated Artery/Lesion type: [place] artery [place] vs. transplanted heart: [place] heart Associated angina: without angina Paroxysmal atrial fibrillation I48.0 Atrial fibrillation type: paroxysmal Alcohol abuse F10.10 Acute on chronic congestive heart failure with left ventricular diastolic dysfunction I50.33
[2024-02-29] MEDS: enoxaparin 40 mg/0.4 mL Syringe SUBCUT (14:39)
[2024-02-29] MEDS: tamsulosin 0.4 mg Capsule 0.8 MG PO (17:18)
[2024-02-29] MEDS: sennosides 8.6 mg Tablet 17.2 MG PO (20:02)
[2024-02-29] MEDS: acetaminophen 325 mg Tablet 650 MG PO (20:12)
[2024-03-01] VITALS (17 sets, daily range): BP systolic 114–159; BP diastolic 67–96; PULSE 78–134; RESP 16–22; TEMP 36.3–36.8; O2SAT 93–98
[2024-03-01] MEDS: ipratropium-albuterol 3 mL Neb INHALATION ×6 (02:40→23:45)
[2024-03-01 05:34] LABS: Basophils % 0.1 %; Hematocrit 26.9 % (37-53); Lymphocytes # 0.3 10^3/uL (0.8-4.8); Lymphocytes % 2.9 %; Mean Corpuscular Hemoglobin 30.5 pg (27-33); Mean Corpuscular Volume 95.4 fl (82-101); Mean Platelet Volume 9.4 fL (7.4-10.4); Monocytes # 0.8 10^3/uL (0.2-0.9); Monocytes % 6.8 %; Neutrophils # 10.65 10^3/uL (1.8-7.7); Neutrophils % 89.3 %; Nucleated Red Blood Cells % 0 %; Platelet Count 249 10^3/cmm (157-399); Red Blood Count 2.82 10^6/uL (3.85-5.65); Red Cell Distribution Width 17.3 % (12.1-15.1); White Blood Count 11.92 10^3/uL (3.29-11.43)
[2024-03-01 06:01] LABS: Anion Gap 15.7 (5-19); Blood Urea Nitrogen 32 mg/dL (8-23); Calcium 8.7 mg/dL (8.5-10.5); Carbon Dioxide 30 mmol/L (22-29); Chloride 91 mmol/L (98-107); Creatinine Clr Calc Pharmacy 56.8406; Glucose 120 mg/dL (65-115); Magnesium 1.7 mg/dL (1.7-2.3); Osmolality Calculated 284 mOsm/kg (285-295); Potassium 3.7 mmol/L (3.5-5.1); Sodium 133 mmol/L (136-145)
[2024-03-01] MEDS: methylPREDNISolone sod succ 40 mg/mL INJ IVP ×2 (06:03→13:21)
[2024-03-01] MEDS: VANCOMYCIN ADD-Vantage 750 MG in 0.9% NaCl ADD-Vantage 250 ML 250 MG IV (06:03)
[2024-03-01] MEDS: piperacillin-tazobactam 3.375 GM in sodium chloride 0.9% (plus) 50 ML IV ×3 (06:04→21:50)
[2024-03-01] MEDS: budesonide 0.5 mg/2 mL Neb INHALATION ×2 (08:27→21:16)
[2024-03-01] MEDS: FUROsemide 10 mg/mL SDV 4mL 40 MG IVP (08:41)
[2024-03-01] MEDS: thiamine 100 mg Tablet PO (08:41)
[2024-03-01] MEDS: amiodarone 200 mg Tablet 400 MG PO (08:41)
[2024-03-01] MEDS: iron polysaccharide complex 150 mg Capsule PO ×2 (08:41→17:21)
[2024-03-01] MEDS: calcium carb-vit d 600mg/400unit 1 Tablet 1 EACH PO ×2 (08:41→17:21)
[2024-03-01] MEDS: folic acid 1 mg Tablet PO (08:41)
[2024-03-01] MEDS: multivitamin therapeutic Tablet 1 TAB PO (08:41)
[2024-03-01] MEDS: BuSPIRONE 10 mg Tablet 5 MG PO ×2 (08:42→17:21)
[2024-03-01] MEDS: atorvastatin 40 mg Tablet PO (08:42)
[2024-03-01] MEDS: citalopram 20 mg Tablet PO (08:42)
[2024-03-01] MEDS: oxyCODONE-APAP 5-325 mg Tablet 1 TAB PO (09:35)
--- NOTE | 2024-03-01 10:00 | PC.SOCIAL ---
IMM Update pg 2 of IMM Updated and reviewed w/ patient. Copy provided and copy dated, initialed and placed in chart.
--- NOTE | 2024-03-01 10:11 | PC.NURSE ---
Pt up in chair. HR 140's. Afib. Asymptomatic at this time. Dr. Hobbs advised. Awaiting response
--- NOTE | 2024-03-01 10:27 | ECG_ITS ---
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 Measurements Intervals [place] Rate: 93 P: 0 [place]: 0 QRS: 7 QRSD: 101 T: -32 QT: 382 QTc: 476 Interpretive Statements ATRIAL FIBRILLATION MODERATE T-WAVE ABNORMALITY, CONSIDER ANTERIOR ISCHEMIA [-0.1+ mV T-WAVE IN V3/V4] Compared to ECG 02/28/2024 21:27:28 Sinus rhythm no longer present First degree AV block no longer present T-wave abnormality still present Possible ischemia still present Electronically Signed On 03-01-2024 19:29:41 FABRICATION AND LAYOUT CRAFTSMAN by Noel Mcclure M.D. [id number]
[2024-03-01 12:40] LABS: MRSA PCR OZH (swab) NOT DETECTED (Negative)
[2024-03-01] MEDS: enoxaparin 40 mg/0.4 mL Syringe SUBCUT (13:21)
--- NOTE | 2024-03-01 13:34 | PM.PN ---
Subjective Subjective: Seen this morning. Patient states that normally he is short of breath at baseline however he feels he is slightly more short of breath compared to before which is mainly on exertion. He has been in the hospital since 02/17. Currently being treated for pneumonia. CT chest does show left lower lobe consolidation. Urine output is not being accurately charted and on chart it shows he is 9 L positive however clinically patient appears to be quite euvolemic today. Vitals/I&O/Wt Last Vital Signs Temp 97.7 F 03/01/24 12:00 Pulse 93 03/01/24 12:22 Resp 22 H 03/01/24 12:22 BP 130/67 03/01/24 12:00 Pulse Ox 95 03/01/24 12:22 O2 Del Method Nasal Cannula 03/01/24 12:22 O2 Flow Rate 2 03/01/24 12:22 FiO2 36 02/28/24 13:20 02/29/24 03/01/24 03/01/24 22:59 06:59 14:59 Intake Total 1020 / 2530 50 / 2580 1260 / 1260 Output Total 550 / 1400 600 / 2000 1250 / 1250 Balance 470 / 1130 -550 / 580 Weight last 48 hrs Weight 85.82 kg Weight 84.776 kg Physical Exam Narrative: He is alert awake oriented x 3, frail, not in acute distress, on nasal cannula Chest mainly clear to auscultation bilaterally, decreased bilateral air entry. Cardiovascular normal heart sounds no murmurs Abdomen soft nontender nondistended normal bowel sounds Extremities no edema noted bilateral lower extremities, left hip hematoma resolving Urinary Catheter Management: Ashley: Cath Placed During This Visit: yes, but has since been removed by the nurse Reason for Continuing Indwelling Catheter: Decision to DC Catheter Urinary Catheter Date of Insertion: 02/19/24 Urinary Catheter Time of Insertion: 00:12 Date Urinary Catheter Removed: 02/23/24 Time Urinary Catheter Discontinued: 09:53 Data 03/01/24 04:53 03/01/24 04:53 A&P Assessment and plan (1) Closed fracture of left hip: Left hip fracture secondary to mechanical fall Strict bedrest Neurovascular checks Ashley catheter for prolonged immobilization Orthopedic surgery consulted, n.p.o. after midnight for evaluation Hold Plavix Multimodal pain control Bowel regiment Qualifiers: Encounter type: initial encounter Qualified Code(s): S72.002A - Fracture of unspecified part of neck of left femur, initial encounter for closed fracture (2) Anemia: Acute on chronic anemia, suspected anemia of chronic disease/inflammatory anemia Patient consents to transfusion 1 packed blood red cell May need Lasix if he becomes fluid overloaded with transfusion Backorder iron labs Repeat labs in a.m. (3) Acute hyponatremia: Acute on chronic hyponatremia, could be culprit to his recurrent falls He appears hypervolemic on exam Check urine electrolytes, TSH Repeat labs in a.m. (4) Hyperkalemia: Mild hyperkalemia Received 1 L IV fluid bolus in ED Telemetry monitoring Recheck labs in a.m. (5) CHF (congestive heart failure): Chronic heart failure with preserved ejection fraction of 55 to 60% Strict I's and O's Daily weights Patient is currently not in exacerbation, but remains at risk with blood transfusion tonight Qualifiers: Heart failure chronicity: chronic Heart failure type: diastolic Qualified Code(s): I50.32 - Chronic diastolic (congestive) heart failure (6) BPH (benign prostatic hyperplasia): Plan to place Ashley catheter Plan to continue home medications after his list is updated Qualifiers: Lower urinary tract symptom presence: symptoms present Lower urinary tract symptom detail: incomplete bladder emptying Qualified Code(s): N40.1 - Benign prostatic hyperplasia with lower urinary tract symptoms; R39.14 - Feeling of incomplete bladder emptying (7) CAD (coronary artery disease): Hold Plavix for surgery Plan to resume other home medications after list is updated Qualifiers: Coronary Disease-Associated Artery/Lesion type: [place] artery [place] vs. transplanted heart: [place] heart Associated angina: without angina Qualified Code(s): I25.10 - Atherosclerotic heart disease of [place] coronary artery without angina pectoris (8) Afib: Atrial fibrillation, unspecified type Check EKG for preop assessment Not on therapeutic anticoagulation per prior home medication list Qualifiers: Atrial fibrillation type: paroxysmal Qualified Code(s): I48.0 - Paroxysmal atrial fibrillation (9) Alcohol abuse: CIWA protocol (10) Acute on chronic congestive heart failure with left ventricular diastolic dysfunction: Plan DVT prophylaxis: SCDs 02/19/24 Labs reviewed showed WBC 7.5, hemoglobin 6.7, platelets 183, sodium 126, potassium 5.3, creatinine 1.8 baseline is 1.5, magnesium 1.5 Chest x-ray negative Had a 2D echo in 07/20 which showed biatrial dilatation, ascending aortic dilatation, EF of 55 to 60% CT cervical spine and CT head negative Venous duplex left leg negative Will transfuse 1 unit PRBC Start IV fluids normal saline at 75 cc/h Replaced magnesium, Kayexalate and calcium gluconate given for hyperkalemia Continue to monitor him in ICU Will try to taper Levophed. Follow-up orthopedics for further recommendations Will start on cardiac diet today. 02/20/24 Labs reviewed, hemoglobin 7.1, s/p 2 units PRBC. Creatinine trending down to 1.7. Blood pressure trend noted, currently blood pressure 97/52 which is his baseline at home Going for right hip surgery this afternoon. Plan to transfuse 1 more unit of packed red blood cells. Anticoagulation on hold for surgery. Still continues to have hyponatremia at 128. On IV normal saline at 75 cc/h. 02/21/24 Labs reviewed, hemoglobin stable at 7.3, creatinine stable at 1.7, baseline is 1.5. He is still on IV Zyvox and cefepime. Blood cultures negative so far, urine culture negative. Will de-escalate antibiotics. Will do IV cefazolin 1 g every 8 hours for now He is s/p internal fixation of left femoral intertrochanteric fracture. Will start him on DVT prophylaxis Lovenox 30 mg daily. Monitor CBC. Continue to monitor in ICU for today and will transfer to [facility] in a.m. 02/22/24 Labs reviewed, hemoglobin was 6.9, received 1 unit PRBC. Will recheck CBC at 6 PM today. Creatinine 1.5 at baseline, hyponatremia stable at 130. WBC 6.3. Continue IV cefazolin 1 g every 8 hours for now. Urine culture and blood culture negative so far Continue subcutaneous Lovenox for DVT prophylaxis. Will continue to monitor hemoglobin and for bleeding. Transfer to [facility] for further management Will keep following orthopedics for further recommendations. 02/23/24 Has past medical history of COPD, active smoker, history of alcoholism, drinks daily, history of CHF, history of CAD, peripheral vascular disease, history of GI bleed, history of gastric antral ulcer, not on anticoagulant therapy, afib. He is s/p day 3 of left hip intertrochanteric femur fracture s/p ORIF with cephalomedullary nail. Has left hip hematoma postoperatively likely because of preop blood thinners including Plavix. CBC stable hence will continue to monitor. He was also found to be in A-fib with RVR and 1 30-1 40s yesterday and today, improved with IV and p.o. metoprolol. EKG done on 2 occasions showed A-fib with RVR. Will resume home medications amiodarone and metoprolol. Will continue to hold Plavix and aspirin given left hip hematoma but continue with DVT prophylaxis with subcutaneous Lovenox. Hemoglobin today 7.9, creatinine improved to 1.2. Currently heart rate in 80s. Denies any new complaints. Will need case management for discharge planning to subacute facility. 02/24/24 He is s/p day 4 of left hip intertrochanteric femur fracture s/p ORIF with cephalomedullary nail. Left hip hematoma stable. CBC showed stable hemoglobin at 7.7. A-fib with RVR resolved with home dose of p.o. metoprolol 50 mg twice daily and amiodarone. But had an episode of pulmonary edema likely secondary to A-fib with RVR, had shortness of breath yesterday, chest x-ray revealed pulmonary edema. Received 1 dose of IV Lasix 40 mg. Feeling better this morning, will continue to monitor. Aspirin and Plavix still on hold secondary to left hip hematoma but will continue with subcutaneous Lovenox for DVT prophylaxis. Also antibiotics switched from IV cefazolin to IV ceftriaxone since UA was positive. Creatinine stable at 1.2. 02/25/24 He is s/p day 5 of left hip repair. Left hip hematoma stable. Hemoglobin stable at 7.9. He has been normotensive and rate controlled with home medication metoprolol, amiodarone and Lasix. Chest x-ray yesterday again revealed pulmonary edema. Chest x-ray today looks improved. Will continue home medication Lasix. Continue IV ceftriaxone for UTI till 02/27 to a total of 5 days. Creatinine trending up since starting Lasix to 1.5 which is his baseline. Will continue to monitor. Awaiting case management for discharge planning. 02/26/24 He is s/p day 6 of left hip repair. Left hip hematoma resolving. Hemoglobin improved to 8.2 Creatinine stable at 1.5. Continue IV ceftriaxone for UTI and aspiration pneumonia. A-fib controlled with rate of 58-62. Continue current management. Repeat chest x-ray in a.m. will follow-up case management on Wednesday for discharge planning. 02/27/24 He is s/p day 7 of left hip repair. No labs done today since he is hemodynamically stable and labs stable for the last 2 days. Will continue IV ceftriaxone for UTI and aspiration pneumonia till 03/01. Aspirin and Plavix still on hold due to left hip hematoma. Will continue subcutaneous Lovenox for DVT prophylaxis. Has to continue subcutaneous Lovenox for DVT prophylaxis on discharge to subacute facility for 30 days post hip repair. Chest x-ray showed fluid overload which is unchanged and stable. A-fib now rate controlled. Continue current management. Awaiting case management for discharge planning. 02/28/2024 -Patient has been having shortness of breath on exertion. He was a smoker and quit 12 years ago. Does have underlying emphysema. ? Chest x-ray does show moderate pulmonary vascular congestion versus a pleural effusion. ? Creatinine 1.5. Will hold off on contrast CT however will get a CT chest without contrast ? Will treat for presumed COPD exacerbation. Solu-Medrol 40 every 8 hours, azithromycin 500 daily ? Continue incentive spirometer, DuoNeb every 6 hours. ? Subcutaneous Lovenox to be continued for DVT prophylaxis secondary to hip fracture. ? Continue to hold aspirin and Plavix. ? Safe discharge planning ? Check bilateral lower extremity Dopplers. 02/29/2024 -Venous Dopplers negative for DVT ? CT chest reviewed. Patient has evidence of pneumonia. ? Placed on vancomycin and Zosyn. ? Check procalcitonin ? Continue incentive spirometer, DuoNeb every 6 hours ? Continue subcutaneous Lovenox ? Continue to hold aspirin Plavix ? Shortness of breath has improved slightly. 03/01/2024 Patient developed left hip hematoma 22 February. He is 8 days out from that point. Hematoma seems to be resolving. Hemoglobin has been stable. 8.6 range. ? Aspirin and Plavix is on hold at this time. If continues to remain stable we will restart aspirin at discharge but continue to hold Plavix for another few days to equal 14 days total. ? Continue on DVT prophylaxis Lovenox 40 daily. ? MRSA nares negative. Will stop vancomycin. Continue Zosyn at this time. Patient to be discharged home on Levaquin for total of 10 days from first day of antibiotics started inpatient. ? Cut down Solu-Medrol to 40 daily. ? Cut down Lasix to 40 every 24 hours. ? EKG does show first-degree AV block. Stop metoprolol to tartrate. Continue oral amiodarone. Patient will need event monitor at discharge. ? Continue to work with physical therapy. If remains stable by tomorrow plan to discharge to nursing facility. ? Patient is on 2 L nasal cannula saturating 95%. Attestations Medical Necessity Statement*: Continue to treat for pneumonia and patient. Patient is on IV antibiotics. Diagnoses Closed fracture of left hip S72.002A Encounter type: initial encounter Anemia D64.9 Acute hyponatremia E87.1 Hyperkalemia E87.5 Chronic diastolic congestive heart failure I50.32 Heart failure chronicity: chronic Heart failure type: diastolic Benign prostatic hyperplasia with incomplete bladder emptying N40.1; R39.14 Lower urinary tract symptom presence: symptoms present Lower urinary tract symptom detail: incomplete bladder emptying Coronary artery disease involving [place] coronary artery of [place] heart without angina pectoris I25.10 Coronary Disease-Associated Artery/Lesion type: [place] artery [place] vs. transplanted heart: [place] heart Associated angina: without angina Paroxysmal atrial fibrillation I48.0 Atrial fibrillation type: paroxysmal Alcohol abuse F10.10 Acute on chronic congestive heart failure with left ventricular diastolic dysfunction I50.33
[2024-03-01] MEDS: acetaminophen 325 mg Tablet 650 MG PO ×2 (15:39→21:50)
[2024-03-01] MEDS: tamsulosin 0.4 mg Capsule 0.8 MG PO (17:21)
[2024-03-01] MEDS: metoprolol tartrate 25 mg Tablet 12.5 MG PO (17:21)
[2024-03-01] MEDS: sennosides 8.6 mg Tablet 17.2 MG PO (21:50)
[2024-03-02] VITALS (17 sets, daily range): BP systolic 135–165; BP diastolic 72–94; PULSE 63–81; RESP 16–20; TEMP 36.6–36.9; O2SAT 92–98
[2024-03-02 04:30] LABS: Basophils % 0.1 %; Hematocrit 28.6 % (37-53); Lymphocytes # 0.5 10^3/uL (0.8-4.8); Lymphocytes % 3.6 %; Mean Corpuscular HGB Conc 31.5 g/dL (30-55); Mean Corpuscular Hemoglobin 29.9 pg (27-33); Monocytes % 7.8 %; Neutrophils # 11.31 10^3/uL (1.8-7.7); Neutrophils % 87.4 %; Nucleated Red Blood Cells % 0 %; Platelet Count 265 10^3/cmm (157-399); Red Blood Count 3.01 10^6/uL (3.85-5.65); Red Cell Distribution Width 17.7 % (12.1-15.1); White Blood Count 12.93 10^3/uL (3.29-11.43)
[2024-03-02] MEDS: ipratropium-albuterol 3 mL Neb INHALATION ×6 (04:36→23:51)
[2024-03-02 04:47] LABS: Blood Urea Nitrogen 35 mg/dL (8-23); Calcium 8.6 mg/dL (8.5-10.5); Carbon Dioxide 32 mmol/L (22-29); Chloride 95 mmol/L (98-107); Creatinine Clr Calc Pharmacy 61.8914; Glucose 113 mg/dL (65-115); Magnesium 1.7 mg/dL (1.7-2.3); Osmolality Calculated 293 mOsm/kg (285-295); Sodium 137 mmol/L (136-145)
[2024-03-02] MEDS: guaiFENesin 100 mg/5 mL UDC 10 mL 200 MG PO (05:52)
[2024-03-02] MEDS: metoprolol tartrate 25 mg Tablet 12.5 MG PO ×2 (05:52→17:07)
[2024-03-02] MEDS: piperacillin-tazobactam 3.375 GM in sodium chloride 0.9% (plus) 50 ML IV ×3 (05:53→20:29)
[2024-03-02] MEDS: acetaminophen 325 mg Tablet 650 MG PO (05:54)
[2024-03-02] MEDS: budesonide 0.5 mg/2 mL Neb INHALATION ×2 (07:34→20:02)
[2024-03-02] MEDS: multivitamin therapeutic Tablet 1 TAB PO (08:56)
[2024-03-02] MEDS: folic acid 1 mg Tablet PO (08:56)
[2024-03-02] MEDS: iron polysaccharide complex 150 mg Capsule PO ×2 (08:56→17:07)
[2024-03-02] MEDS: calcium carb-vit d 600mg/400unit 1 Tablet 1 EACH PO ×2 (08:56→17:07)
[2024-03-02] MEDS: docusate sodium 100 mg Capsule PO (08:56)
[2024-03-02] MEDS: citalopram 20 mg Tablet PO (08:56)
[2024-03-02] MEDS: thiamine 100 mg Tablet PO (08:56)
[2024-03-02] MEDS: amiodarone 200 mg Tablet 400 MG PO (08:56)
[2024-03-02] MEDS: atorvastatin 40 mg Tablet PO (08:56)
[2024-03-02] MEDS: BuSPIRONE 10 mg Tablet 5 MG PO ×2 (08:56→17:07)
--- NOTE | 2024-03-02 09:13 | P.DS_ITS ---
Discharge Providers Date of Admission: 02/18/24 20:52 Date of Discharge: March 02, 2024 Attending Provider at Admission: Jarred Wang MD Attending Provider at Discharge: Mayda Hobbs MD Primary Care Provider: CARY Dent Diagnoses at Discharge Discharge Diagnosis (1) Closed fracture of left hip: Status: Acute Qualifiers: Encounter type: initial encounter Qualified Code(s): S72.002A - Fracture of unspecified part of neck of left femur, initial encounter for closed fracture (2) Anemia: Status: Acute (3) Acute hyponatremia: Status: Acute (4) Hyperkalemia: Status: Acute (5) CHF (congestive heart failure): Status: Chronic Qualifiers: Heart failure chronicity: chronic Heart failure type: diastolic Qualified Code(s): I50.32 - Chronic diastolic (congestive) heart failure (6) BPH (benign prostatic hyperplasia): Status: Acute Qualifiers: Lower urinary tract symptom presence: symptoms present Lower urinary tract symptom detail: incomplete bladder emptying Qualified Code(s): N40.1 - Benign prostatic hyperplasia with lower urinary tract symptoms; R39.14 - Feeling of incomplete bladder emptying (7) CAD (coronary artery disease): Status: Acute Qualifiers: Coronary Disease-Associated Artery/Lesion type: resighini artery [place] vs. transplanted heart: resighini heart Associated angina: without angina Qualified Code(s): I25.10 - Atherosclerotic heart disease of resighini coronary artery without angina pectoris (8) Afib: Status: Acute Qualifiers: Atrial fibrillation type: paroxysmal Qualified Code(s): I48.0 - Paroxysmal atrial fibrillation (9) Alcohol abuse: Status: Acute (10) Acute on chronic congestive heart failure with left ventricular diastolic dysfunction: Status: Acute Reason for Visit Reason for Visit: FALL Physical Exam Urinary Catheter Management: Ashley: Cath Placed During This Visit: yes, but has since been removed by the nurse Reason for Continuing Indwelling Catheter: Decision to DC Catheter Urinary Catheter Date of Insertion: 02/19/24 Urinary Catheter Time of Insertion: 00:12 Date Urinary Catheter Removed: 02/23/24 Time Urinary Catheter Discontinued: 09:53 Discharge Data Studies Completed and Pending Completed Studies During Hospitalization Category Date Time Status CT abdomen pelvis w con* [id number] Routine Cat Scan 02/18/24 22:[address] cervical spin wo con* [id number] Stat Cat Scan 02/18/24 20:[address] chest wo con [id number] Stat Cat Scan 02/28/24 13:[address] head wo con* [id number] Stat Cat Scan 02/18/24 20:14 Completed CXRP [XR chest 1V portable [id number]] Stat Exams 02/18/24 19:57 Completed CXRP [XR chest 1V portable [id number]] Stat Exams 02/19/24 02:37 Completed XR chest 1V portable [id number] Routine Exams 02/23/24 15:29 Completed XR chest 1V portable [id number] Routine Exams 02/27/24 06:00 Completed XR chest 1V portable [id number] Stat Exams 02/24/24 00:01 Completed XR chest 1V portable [id number] Stat Exams 02/25/24 07:57 Completed XR femur LT min 2V* 51276 Stat Exams 02/20/24 11:48 Completed XR hip LT 2-3V wo/w pel* [id number] Routine Exams 02/20/24 11:30 Completed XR hip LT 2-3V wo/w pel* [id number] Routine Exams 02/20/24 14:09 Completed XR hip LT 2-3V wo/w pel* [id number] Stat Exams 02/18/24 19:55 Completed XR pelvis 1-2V* [id number] Routine Exams 02/20/24 11:50 Completed CV. echo complete* 78526 Routine Ultrasound 02/28/24 13:06 Completed US venous duplex lower extremity LT [CV venous duplex Ultrasound 02/19/24 00:41 [place] [id number]] Urgent US venous duplex lower extremity bilat [CV venous Ultrasound 02/28/24 13:05 [place] [id number]] Routine Pending at discharge Category Date Time Status COVID [SARS Covid-2 Antigen] Routine Lab 03/02/24 08:52 Received Sputum Culture and Gram Stain Stat Lab 02/29/24 12:33 Uncollected Radiology Impressions Cervical Spine CT 02/18/24 20:14 IMPRESSION: Limited examination due to motion artifact but there is no gross fracture. Head CT 02/18/24 20:14 IMPRESSION: No acute intracranial abnormality. Senescent changes. Abdomen/Pelvis CT 02/18/24 22:00 IMPRESSION: 1. Increase in size of a saccular infrarenal abdominal aortic aneurysm arising from a focal chronic dissection, now measuring up to 4.9 cm (previously up to 3.7 cm in 2020). The aneurysm sac drapes along the prevertebral space, which may suggest impending rupture. 2. Additional multifocal aneurysms of the visualized descending aorta and distal infrarenal abdominal aorta are unchanged since 2020. 3. Mildly comminuted left femoral intertrochanteric fracture with associated local inflammatory changes and edema. Ill-defined fat stranding along the femoral vasculature, with heterogeneity of the visualized left femoral vein raises suspicion for possible deep venous thrombosis. Recommend left lower extremity Doppler ultrasound for further assessment. Chest CTA may also be obtained if there is clinical suspicion for pulmonary embolism in the setting of recent fracture. 4. Pronounced bladder diverticulosis and extensive trabeculation and layering calculi within the diverticula. Findings may be related to neurogenic bladder or chronic outlet obstruction. Mild thickening may suggest cystitis in the appropriate clinical setting. 5. Multiple partially imaged chronic bilateral rib fractures. COMMENT: THIS REPORT CONTAINS FINDINGS THAT MAY BE CRITICAL TO PATIENT CARE. The exam findings were verbally communicated by me to RICKY LANDA via telephone conference at 10:52 PM NEEDLE STRAIGHTENER on 02/18/2024. The findings were acknowledged and understood. COMMENTS: Consistent with the [employer]'s Incidental Findings Committee white paper (J Am Rusty Radiol 2018): Any incidental renal lesion less than 1 cm or classified as too small to characterize, or any incidental cystic renal lesion characterized as simple-appearing, is likely benign. No follow-up imaging is recommended for these lesions per consensus recommendations based on imaging criteria. Femur X-Ray 02/20/24 11:48 IMPRESSION: 1. Impacted, comminuted, slightly displaced fracture intertrochanteric proximal left femur with resultant slight varus deformity. 2. Additional details as above. Pelvis X-Ray 02/20/24 11:50 IMPRESSION: Comminuted, impacted, slightly displaced fracture intertrochanteric left femur with resultant slight varus deformity. Hip/Pelvis X-Ray 02/20/24 14:09 IMPRESSION: Satisfactory immediate postoperative appearance of internal fixation left femoral intertrochanteric fracture. Chest X-Ray 02/27/24 06:00 follow up IMPRESSION: 1. Moderate cardiomegaly with vascular congestion. 2. Stable appearance of the chest. 3. Small left pleural effusion not significantly changed. Chest CT 02/28/24 13:00 IMPRESSION: 1. Aneurysmal ascending thoracic aorta measuring 4.7 cm similar to previous. 2. Saccular partially visualized infrarenal abdominal aneurysm measuring 4.1 x 4.7 cm also similar to previous. 3. Small bilateral pleural effusions with subtotal consolidation LEFT lower lobe. Recommend correlation for pneumonia. 4. Thoracic kyphosis with multiple chronic appearing compression fractures some of which are new compared to 03/11/2023 but have a chronic appearance. Laboratory Results WBC 12.93 10^3/uL (3.29-11.43) H 03/02/24 04:07 RBC 3.01 10^6/uL (3.85-5.65) L 03/02/24 04:07 Hgb 9.00 g/dL (11.27-16.99) L 03/02/24 04:07 Hct 28.6 % (37-53) L 03/02/24 04:07 MCV 95.0 fl (82-101) 03/02/24 04:07 MCH 29.9 pg (27-33) 03/02/24 04:07 MCHC 31.5 g/dL (30-55) 03/02/24 04:07 RDW 17.7 % (12.1-15.1) H 03/02/24 04:07 Plt Count 265 10^3/cmm (157-399) 03/02/24 04:07 MPV 9.0 fL (7.4-10.4) 03/02/24 04:07 Neut % (Auto) 87.4 % 03/02/24 04:07 Lymph % (Auto) 3.6 % 03/02/24 04:07 Pepin % (Auto) 7.8 % 03/02/24 04:07 Eos % (Auto) 0.0 % 03/02/24 04:07 Baso % (Auto) 0.1 % 03/02/24 04:07 Neut # (Auto) 11.31 10^3/uL (1.8-7.7) H 03/02/24 04:07 Lymph # (Auto) 0.5 10^3/uL (0.8-4.8) L 03/02/24 04:07 Pepin # (Auto) 1.0 10^3/uL (0.2-0.9) H 03/02/24 04:07 Eos # (Auto) 0.0 10^3/uL (0.0-0.8) 03/02/24 04:07 Baso # (Auto) 0.0 10^3/uL (0.0-0.1) 03/02/24 04:07 Nucleated RBC % (auto) 0 % 03/02/24 04:07 Nucleated RBCs # 0.0 /100WBC 03/02/24 04:07 PT 13.60 SECONDS (12.1-14.9) 02/18/24 20:09 INR 1.01 (0.8-1.2) 02/18/24 20:09 Specimen Type Arterial 02/24/24 00:48 Sample Site Radial, right 02/24/24 00:48 ABG pH 7.37 (7.35-7.45) 02/24/24 00:48 ABG pCO2 44.6 mmHg (35-45) 02/24/24 00:48 ABG pO2 80.7 mmHg (80.0-100.0) 02/24/24 00:48 ABG PO2/FiO2 Ratio 224 02/24/24 00:48 ABG HCO3 26.0 mmol/L (22-26) 02/24/24 00:48 ABG O2 Saturation 96.3 02/24/24 00:48 ABG Base Excess 0.6 mmol/L (-2.0-2.0) 02/24/24 00:48 Alberto Test Pos 02/24/24 00:48 A-a O2 Gradient 15.5 mmHg (5-10) H 02/24/24 00:48 Hematocrit 27.1 % (42-52) L 02/24/24 00:48 Hgb O2 Saturation 93.4 % (95-100) L 02/24/24 00:48 Carboxyhemoglobin 1.7 %THgb (0.4-20.1) 02/24/24 00:48 Methemoglobin 1.3 % (0.4-1.5) 02/24/24 00:48 Total Hemoglobin 8.8 g/dL (14-18) L 02/24/24 00:48 Sodium 133.0 mmol/L (131-143) 02/24/24 00:48 Potassium 4.6 mmol/L (3.5-5.0) 02/24/24 00:48 Glucose 96.0 mg/dL (70-115) 02/24/24 00:48 Ionized Calcium 1.3 mmol/L (1.1-1.4) 02/24/24 00:48 O2 Delivery Device Nc 02/24/24 00:48 O2 Liters/Min 4.0 % 02/24/24 00:48 FiO2 36.0 % 02/24/24 00:48 Director Life 02/24/24 00:48 Sodium 137 mmol/L (136-145) 03/02/24 04:07 Potassium 4.0 mmol/L (3.5-5.1) 03/02/24 04:07 Chloride 95 mmol/L (98-107) L 03/02/24 04:07 Carbon Dioxide 32 mmol/L (22-29) H 03/02/24 04:07 Anion Gap 14.0 (5-19) 03/02/24 04:07 BUN 35 mg/dL (8-23) H 03/02/24 04:07 Creatinine 1.2 mg/dL (0.7-1.2) 03/02/24 04:07 GFR Calculation Not Reportable 03/02/24 04:07 Glucose 113 mg/dL (65-115) 03/02/24 04:07 POC Glucose 109 mg/dL (70-110) 02/19/24 04:21 Calculated Osmolality 293 mOsm/kg (285-295) 03/02/24 04:07 Calcium 8.6 mg/dL (8.5-10.5) 03/02/24 04:07 Phosphorus 4.5 mg/dL (2.5-4.5) 02/19/24 04:20 Magnesium 1.7 mg/dL (1.7-2.3) 03/02/24 04:07 Iron 34 ug/dL (59-158) L 02/18/24 20:09 TIBC 163 mcg/dl 02/18/24 20:09 % Saturation 20.8 % (20-50) 02/18/24 20:09 Unsat Iron Binding 129 ug/dL (112-347) 02/18/24 20:09 Ferritin 248 ng/mL (30-400) 02/18/24 20:09 Total Bilirubin 0.3 mg/dL (0.15-1.2) 02/18/24 20:09 AST 38 U/L (0-40) 02/18/24 20:09 ALT 15 U/L (0-41) 02/18/24 20:09 Alkaline Phosphatase 94 U/L (40-130) 02/18/24 20:09 Troponin T Baseline 47 ng/L (0-15) H 02/28/24 13:31 Troponin T 120 Minute 46.29 ng/L (0-15) H 02/28/24 15:37 Delta Troponin T -0.71 ABS# (0-10) L 02/28/24 15:37 Troponin T Hi Sens 6Hr 40.51 ng/L (0-15) H 02/28/24 19:21 Troponin T Hi Sens 6Hr Delta -6.49 ng/L (0-12) L 02/28/24 19:21 C-Reactive Protein 8.2 mg/L (0.0-4.9) H 02/19/24 07:11 NT-Pro-B Natriuret Pep 3178 pg/mL (0-450) H 02/19/24 04:20 Total Protein 6.1 g/dL (6.6-8.7) L 02/18/24 20:09 Albumin 3.5 g/dL (3.5-5.2) 02/18/24 22:09 Globulin 2.7 g/dL (1.3-4.6) 02/18/24 20:09 Procalcitonin 0.20 ng/mL (0-0.5) 02/19/24 07:11 TSH 2.39 uIU/mL (0.27-4.20) 02/18/24 22:09 Urine Color Yellow (Yellow) 02/24/24 00:50 Urine Appearance Clear (CLEAR) 02/24/24 00:50 Urine pH 5.5 (5-7) 02/24/24 00:50 Ur Specific [place] 1.022 (1.005-1.030) 02/24/24 00:50 Urine Protein 1+ (Negative) A 02/24/24 00:50 Urine Glucose (UA) Negative (Normal) 02/24/24 00:50 Urine Ketones Trace (Negative) 02/24/24 00:50 Urine Blood Negative (Negative) 02/24/24 00:50 Urine Nitrate Negative (Negative) 02/24/24 00:50 Urine Bilirubin Negative (Negative) 02/24/24 00:50 Urine Urobilinogen 1.0 mg/dL (Negative) 02/24/24 00:50 Ur Leukocyte Esterase 1+ (Negative) A 02/24/24 00:50 Urine RBC 3-5 /hpf (0-2) 02/24/24 00:50 Urine WBC 11-20 /hpf (0-5) H 02/24/24 00:50 Ur Squamous Epith Cells 0-5 /hpf (0-5) 02/24/24 00:50 Amorphous Sediment Not Reportable 02/24/24 00:50 Urine Bacteria None seen /hpf (NONE) 02/24/24 00:50 Hyaline Casts 4.52 /lpf 02/24/24 00:50 Ur Random Sodium 56 mmol/L 02/19/24 01:57 Ur Random Potassium 40 mmol/L 02/19/24 01:57 Ur Random Chloride 84 mmol/L 02/19/24 01:57 Nasal MRSA (PCR) Not detected (Negative) 03/01/24 11:15 Hep Bs Antigen Non-reactive (Nonreactive) 02/20/24 04:50 Hepatitis C Antibody Non-reactive (Nonreactive) 02/20/24 04:50 HIV 1&2 Ab & HIV 1 Ag Non-reactive (Non-Reactiv) 02/20/24 04:20 HIV 1&2 Antibody Non-reactive (Non-Reactiv) 02/20/24 04:20 Blood Type B Positive 02/19/24 00:00 Rho(D) Type Rh positive 02/19/24 00:00 Antibody Screen Negative 02/19/24 00:00 Crossmatch See Detail 02/19/24 00:00 Vitals Last Vital Signs Temp 97.8 F 03/02/24 07:27 Pulse 63 03/02/24 07:35 Resp 20 H 03/02/24 07:35 BP 151/94 03/02/24 07:27 Pulse Ox 98 03/02/24 07:35 O2 Del Method Nasal Cannula 03/02/24 07:35 O2 Flow Rate 2 03/02/24 07:35 FiO2 36 02/28/24 13:20 Discharge Plan Discharge Patient Disposition: Xfer SNF Condition: Stable Prescriptions: No Action multivitamin Tablet 1 tab PO DAILY 90 Days Qty: 90 1RF atorvastatin 40 mg tablet 40 mg PO DAILY 90 Days Qty: 90 1RF aspirin [Adult Low Dose Aspirin] 81 mg tablet,delayed release (DR/EC) 81 mg PO DAILY albuterol sulfate 90 mcg/actuation HFA aerosol inhaler 1 puff inhalation Q4H PRN (Reason: Shortness Of Breath Or Wheezing) Qty: 8.5 3RF ipratropium-albuterol 0.5 mg-3 mg(2.5 mg base)/3 mL solution for nebulization 3 ml INHALATION Q6H PRN (Reason: Shortness Of Breath) Qty: 180 3RF Pacerone 200 mg tablet 400 mg PO DAILY Qty: 180 1RF pantoprazole 40 mg tablet,delayed release (DR/EC) 40 mg PO DAILY 90 Days Qty: 180 1RF cyclobenzaprine 5 mg tablet 5 mg PO BID PRN (Reason: muscle spasm) 30 Days Qty: 60 1RF budesonide-formoterol [Symbicort] 160-4.5 mcg/actuation HFA aerosol inhaler 2 puff inhalation BID Qty: 10.2 6RF citalopram 20 mg tablet 20 mg PO DAILY 30 Days Qty: 30 0RF cyanocobalamin (vitamin B-12) 1,000 mcg capsule 1,000 mcg PO DAILY 30 Days Qty: 30 0RF furosemide [Lasix] 40 mg tablet 40 mg PO DAILY tamsulosin 0.4 mg capsule 0.8 mg PO QPM gabapentin 300 mg capsule 300 mg PO QPM buspirone 5 mg Tablet 5 mg PO BID clopidogrel [Plavix] 75 mg Tablet 75 mg PO DAILY Mucinex DM 30-600 mg Tablet Extended Release 12 Hr 1 tab PO Q12H fluticasone propionate [Flonase] 50 mcg/actuation [place],Suspension 1 spray INTRANASAL DAILY Rx Instructions: administer into each nostril folic acid 1 mg Tablet 1 mg PO DAILY magnesium L-lactate [Mag-Lactate SR] 84 mg Tablet Extended Release 84 mg PO DAILY metoprolol tartrate 50 mg tablet 50 mg PO BID thiamine mononitrate (vit B1) [Vitamin B-1 (mononitrate)] 100 mg Tablet 100 mg PO DAILY Qty: 30 0RF Referrals: [facility] [Outside] FELIPE Hector, CARY [Primary Care Provider] - Baljinder Varela DO [Physician] - Discharge Diet: Advance as tolerated Patient Instructions: Acute Wound Care (DC), Opioid Safety, Post Anesthesia Care Activity Restrictions/Additional Instructions: Postop Troch Nail Orthopedic discharge instructions: Weightbearing as tolerated to the operative extremity Ice as needed for pain and swelling Encourage knee and hip range of motion as tolerated PT/OT Take pain medication as prescribed Take antinausea medication as needed Supplement with Citracal vitamin D for bone health and healing Take (blood thinner) as prescribed for blood clot prevention by primary team Take Colace as needed for constipation Leave Silverlon/soft dressings on and in place for 7 days. After this they may be removed you may shower/rinse incisions with warm soapy water, pat dry redress with a dry dressing. Okay to sponge bath/shower with Silverlon dressings as they should be waterproof however if they do get saturated or wet please take these off dry the incision and redressed with a new dry sterile bandage.? Follow-up in the orthopedic office with Dr. Varela in 2 weeks for repeat x-rays and incision check/staple removal Contact the office for any questions or concerns (i.e. increasing redness and drainage around the incision, fevers, or chills, or severe worsening in pain/change in symptoms) Coding Level of Care Code Acute Code for Chg Fwd Diagnoses Closed fracture of left hip S72.002A Encounter type: initial encounter Anemia D64.9 Acute hyponatremia E87.1 Hyperkalemia E87.5 Chronic diastolic congestive heart failure I50.32 Heart failure chronicity: chronic Heart failure type: diastolic Benign prostatic hyperplasia with incomplete bladder emptying N40.1; R39.14 Lower urinary tract symptom presence: symptoms present Lower urinary tract symptom detail: incomplete bladder emptying Coronary artery disease involving resighini coronary artery of resighini heart without angina pectoris I25.10 Coronary Disease-Associated Artery/Lesion type: resighini artery [place] vs. transplanted heart: resighini heart Associated angina: without angina Paroxysmal atrial fibrillation I48.0 Atrial fibrillation type: paroxysmal Alcohol abuse F10.10 Acute on chronic congestive heart failure with left ventricular diastolic dysfunction I50.33
[2024-03-02 09:46] LABS: SARS Covid-2 Antigen Negative (Negative)
--- NOTE | 2024-03-02 12:51 | CTR_ITS ---
PROCEDURE INFORMATION: Exam: CT Lumbar Spine Without Contrast Exam date and time: 03/02/2024 6:58 PM Age: 73 years old Clinical indication: Numbness; Additional info: Left leg numbness, include pelvis area to assess hip hematoma TECHNIQUE: Imaging protocol: Computed tomography of the lumbar spine without contrast. Radiation optimization: All CT scans at this facility use at least one of these dose optimization techniques: automated exposure control; mA and/or kV adjustment per patient size (includes targeted exams where dose is matched to clinical indication); or iterative reconstruction. COMPARISON: CT abdomen pelvis w con* [id number] 02/18/2024 10:15 PM RADIATION DOSE METRICS: Total DLP (mGy-cm): 873.19 FINDINGS: Bones/joints: Advanced multilevel degenerative disc disease throughout the lumbar spine with intervertebral disc space height loss, vacuum disc phenomenon, and endplate degenerative changes. Partial osseous fusion at L1-L2. Multilevel anterior osteophytes. Chronic mild superior endplate compression deformity at L3. No definite acute fracture. Vertebral body heights are maintained. Vasculature: Infrarenal abdominal aortic aneurysm better assessed on accompanying CTA abdomen/pelvis. Diffuse aortoiliac calcifications. Soft tissues: Unremarkable. CT/CT lumbar spine wo con* [id number] IMPRESSION: 1. Advanced multilevel lumbar spondylosis. 2. No acute osseous findings. 3. Infrarenal abdominal aortic aneurysm. Please see separate CTA abdomen/pelvis report for further detail.
--- NOTE | 2024-03-02 12:52 | ECG_ITS ---
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 Interpretive Statements Lung unchanged pre/post procedure; Intraprocedure shortess of breath; Symptoms resoled by discharge PROCEDURE: At the baseline, the EKG revealed normal sinus rhythm with a first-degree AV block. Diffuse nonspecific T wave changes. The baseline heart was 70 bpm with a blood pressue of 150/101 mm of Hg Lexiscan was infused over a period of 20 seconds. A total of 0.4 milligrams of Lexiscan was infused. The stress phase was continued for a total of 5 minutes. Heart rate at the end of the stress phase was 82 bpm with a blood pressure 149/98 mm of Hg. The EKG at the peak infusion revealed no significant changes. Sestamibi was injected 20 seconds after the Lexiscan infusion. Heart rate at the end of the recovery phase was 78 bpm with a blood pressure of 166/96 mm of Hg. CONCLUSION: 1. No significant EKG changes with the LexiScan infusion 2. No LexiScan induced chest pain or cardiac arrhythmia 3. Normal blood pressure and heart rate response 4. Sestamibi/sestamibi perfusion scan pending; see separate report. 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 [email or web address]
--- NOTE | 2024-03-02 12:53 | P.PN_ITS ---
Subjective 2 Subjective: seen this am pt complains of left foot numbness and states he has tingling and that his foot feels like a sponge. has been wearing compression stocking, states they are too tight for him hemoglobin stable b/l edema present, complains of chest tightness and sob on exertion, states has never had a stress test however there is one on file from 2021 which had Abnormal myocardial perfusion imaging with moderate sized area of ischemia seen in LAD territory. There is large sized prior infarct with cleo-infarct ischemia seen in the LCx and RCA territory. 2. LV systolic function is normal 3. Elevated TID ratio suggestive of multivessel CAD/subendocardial ischemia On review of records patient reported to cardiology that he does not elevate his legs often he stands as little as possible and he is wobbly on his feet. Does have left leg edema worse on right. On 4 L at home. Drinks 3-4 bottles of water today and 4 cups of coffee. Patient has known peripheral arterial disease. Does have a history of severe peripheral arterial disease. He also reported to pulmonology that he has been drinking episodes to the point where he loses consciousness. Vitals/I&O/Wt Last Vital Signs Temp 97.8 F 03/02/24 07:27 Pulse 78 03/02/24 11:07 Resp 18 03/02/24 11:07 BP 151/94 03/02/24 07:27 Pulse Ox 98 03/02/24 11:07 O2 Del Method Nasal Cannula 03/02/24 11:07 O2 Flow Rate 2 03/02/24 11:07 FiO2 36 02/28/24 13:20 03/01/24 03/02/24 03/02/24 22:59 06:59 14:59 Intake Total 170 / 1430 50 / 1480 410 / 410 Output Total 325 / 1575 425 / 2000 Balance -155 / -145 -375 / -520 410 / 410 Weight last 48 hrs Weight 85.82 kg Physical Exam 2 Narrative: He is alert awake oriented x 3, frail, not in acute distress, on nasal cannula Chest mainly clear to auscultation bilaterally, decreased bilateral air entry. Cardiovascular normal heart sounds no murmurs Abdomen soft nontender nondistended normal bowel sounds Extremities no edema noted bilateral lower extremities, left hip hematoma resolving does have post tibial pulses by doppler but faint. Urinary Catheter Management: Ashley: Cath Placed During This Visit: yes, but has since been removed by the nurse Reason for Continuing Indwelling Catheter: Decision to DC Catheter Urinary Catheter Date of Insertion: 02/19/24 Urinary Catheter Time of Insertion: 00:12 Date Urinary Catheter Removed: 02/23/24 Time Urinary Catheter Discontinued: 09:53 Data 03/02/24 04:07 03/02/24 04:07 A&P Assessment and plan (1) Closed fracture of left hip: Left hip fracture secondary to mechanical fall Strict bedrest Neurovascular checks Ashley catheter for prolonged immobilization Orthopedic surgery consulted, n.p.o. after midnight for evaluation Hold Plavix Multimodal pain control Bowel regiment Qualifiers: Encounter type: initial encounter Qualified Code(s): S72.002A - Fracture of unspecified part of neck of left femur, initial encounter for closed fracture (2) Anemia: Acute on chronic anemia, suspected anemia of chronic disease/inflammatory anemia Patient consents to transfusion 1 packed blood red cell May need Lasix if he becomes fluid overloaded with transfusion Backorder iron labs Repeat labs in a.m. (3) Acute hyponatremia: Acute on chronic hyponatremia, could be culprit to his recurrent falls He appears hypervolemic on exam Check urine electrolytes, TSH Repeat labs in a.m. (4) Hyperkalemia: Mild hyperkalemia Received 1 L IV fluid bolus in ED Telemetry monitoring Recheck labs in a.m. (5) CHF (congestive heart failure): Chronic heart failure with preserved ejection fraction of 55 to 60% Strict I's and O's Daily weights Patient is currently not in exacerbation, but remains at risk with blood transfusion tonight Qualifiers: Heart failure chronicity: chronic Heart failure type: diastolic Qualified Code(s): I50.32 - Chronic diastolic (congestive) heart failure (6) BPH (benign prostatic hyperplasia): Plan to place Ashley catheter Plan to continue home medications after his list is updated Qualifiers: Lower urinary tract symptom presence: symptoms present Lower urinary tract symptom detail: incomplete bladder emptying Qualified Code(s): N40.1 - Benign prostatic hyperplasia with lower urinary tract symptoms; R39.14 - Feeling of incomplete bladder emptying (7) CAD (coronary artery disease): Hold Plavix for surgery Plan to resume other home medications after list is updated Qualifiers: Coronary Disease-Associated Artery/Lesion type: andreafski artery [place] vs. transplanted heart: andreafski heart Associated angina: without angina Qualified Code(s): I25.10 - Atherosclerotic heart disease of andreafski coronary artery without angina pectoris (8) Afib: Atrial fibrillation, unspecified type Check EKG for preop assessment Not on therapeutic anticoagulation per prior home medication list Qualifiers: Atrial fibrillation type: paroxysmal Qualified Code(s): I48.0 - Paroxysmal atrial fibrillation (9) Alcohol abuse: CIWA protocol (10) Acute on chronic congestive heart failure with left ventricular diastolic dysfunction: Plan DVT prophylaxis: SCDs 02/19/24 Labs reviewed showed WBC 7.5, hemoglobin 6.7, platelets 183, sodium 126, potassium 5.3, creatinine 1.8 baseline is 1.5, magnesium 1.5 Chest x-ray negative Had a 2D echo in 07/20 which showed biatrial dilatation, ascending aortic dilatation, EF of 55 to 60% CT cervical spine and CT head negative Venous duplex left leg negative Will transfuse 1 unit PRBC Start IV fluids normal saline at 75 cc/h Replaced magnesium, Kayexalate and calcium gluconate given for hyperkalemia Continue to monitor him in ICU Will try to taper Levophed. Follow-up orthopedics for further recommendations Will start on cardiac diet today. 02/20/24 Labs reviewed, hemoglobin 7.1, s/p 2 units PRBC. Creatinine trending down to 1.7. Blood pressure trend noted, currently blood pressure 97/52 which is his baseline at home Going for right hip surgery this afternoon. Plan to transfuse 1 more unit of packed red blood cells. Anticoagulation on hold for surgery. Still continues to have hyponatremia at 128. On IV normal saline at 75 cc/h. 02/21/24 Labs reviewed, hemoglobin stable at 7.3, creatinine stable at 1.7, baseline is 1.5. He is still on IV Zyvox and cefepime. Blood cultures negative so far, urine culture negative. Will de-escalate antibiotics. Will do IV cefazolin 1 g every 8 hours for now He is s/p internal fixation of left femoral intertrochanteric fracture. Will start him on DVT prophylaxis Lovenox 30 mg daily. Monitor CBC. Continue to monitor in ICU for today and will transfer to [facility] in a.m. 02/22/24 Labs reviewed, hemoglobin was 6.9, received 1 unit PRBC. Will recheck CBC at 6 PM today. Creatinine 1.5 at baseline, hyponatremia stable at 130. WBC 6.3. Continue IV cefazolin 1 g every 8 hours for now. Urine culture and blood culture negative so far Continue subcutaneous Lovenox for DVT prophylaxis. Will continue to monitor hemoglobin and for bleeding. Transfer to [facility] for further management Will keep following orthopedics for further recommendations. 02/23/24 Has past medical history of COPD, active smoker, history of alcoholism, drinks daily, history of CHF, history of CAD, peripheral vascular disease, history of GI bleed, history of gastric antral ulcer, not on anticoagulant therapy, afib. He is s/p day 3 of left hip intertrochanteric femur fracture s/p ORIF with cephalomedullary nail. Has left hip hematoma postoperatively likely because of preop blood thinners including Plavix. CBC stable hence will continue to monitor. He was also found to be in A-fib with RVR and 1 30-1 40s yesterday and today, improved with IV and p.o. metoprolol. EKG done on 2 occasions showed A- fib with RVR. Will resume home medications amiodarone and metoprolol. Will continue to hold Plavix and aspirin given left hip hematoma but continue with DVT prophylaxis with subcutaneous Lovenox. Hemoglobin today 7.9, creatinine improved to 1.2. Currently heart rate in 80s. Denies any new complaints. Will need case management for discharge planning to subacute facility. 02/24/24 He is s/p day 4 of left hip intertrochanteric femur fracture s/p ORIF with cephalomedullary nail. Left hip hematoma stable. CBC showed stable hemoglobin at 7.7. A-fib with RVR resolved with home dose of p.o. metoprolol 50 mg twice daily and amiodarone. But had an episode of pulmonary edema likely secondary to A-fib with RVR, had shortness of breath yesterday, chest x-ray revealed pulmonary edema. Received 1 dose of IV Lasix 40 mg. Feeling better this morning, will continue to monitor. Aspirin and Plavix still on hold secondary to left hip hematoma but will continue with subcutaneous Lovenox for DVT prophylaxis. Also antibiotics switched from IV cefazolin to IV ceftriaxone since UA was positive. Creatinine stable at 1.2. 02/25/24 He is s/p day 5 of left hip repair. Left hip hematoma stable. Hemoglobin stable at 7.9. He has been normotensive and rate controlled with home medication metoprolol, amiodarone and Lasix. Chest x-ray yesterday again revealed pulmonary edema. Chest x-ray today looks improved. Will continue home medication Lasix. Continue IV ceftriaxone for UTI till 02/27 to a total of 5 days. Creatinine trending up since starting Lasix to 1.5 which is his baseline. Will continue to monitor. Awaiting case management for discharge planning. 02/26/24 He is s/p day 6 of left hip repair. Left hip hematoma resolving. Hemoglobin improved to 8.2 Creatinine stable at 1.5. Continue IV ceftriaxone for UTI and aspiration pneumonia. A-fib controlled with rate of 58-62. Continue current management. Repeat chest x-ray in a.m. will follow-up case management on Wednesday for discharge planning. 02/27/24 He is s/p day 7 of left hip repair. No labs done today since he is hemodynamically stable and labs stable for the last 2 days. Will continue IV ceftriaxone for UTI and aspiration pneumonia till 03/01. Aspirin and Plavix still on hold due to left hip hematoma. Will continue subcutaneous Lovenox for DVT prophylaxis. Has to continue subcutaneous Lovenox for DVT prophylaxis on discharge to subacute facility for 30 days post hip repair. Chest x-ray showed fluid overload which is unchanged and stable. A-fib now rate controlled. Continue current management. Awaiting case management for discharge planning. 02/28/2024 -Patient has been having shortness of breath on exertion. He was a smoker and quit 12 years ago. Does have underlying emphysema. ? Chest x-ray does show moderate pulmonary vascular congestion versus a pleural effusion. ? Creatinine 1.5. Will hold off on contrast CT however will get a CT chest without contrast ? Will treat for presumed COPD exacerbation. Solu-Medrol 40 every 8 hours, azithromycin 500 daily ? Continue incentive spirometer, DuoNeb every 6 hours. ? Subcutaneous Lovenox to be continued for DVT prophylaxis secondary to hip fracture. ? Continue to hold aspirin and Plavix. ? Safe discharge planning ? Check bilateral lower extremity Dopplers. 02/29/2024 -Venous Dopplers negative for DVT ? CT chest reviewed. Patient has evidence of pneumonia. ? Placed on vancomycin and Zosyn. ? Check procalcitonin ? Continue incentive spirometer, DuoNeb every 6 hours ? Continue subcutaneous Lovenox ? Continue to hold aspirin Plavix ? Shortness of breath has improved slightly. 03/01/2024 Patient developed left hip hematoma 22 February. He is 8 days out from that point. Hematoma seems to be resolving. Hemoglobin has been stable. 8.6 range. ? Aspirin and Plavix is on hold at this time. If continues to remain stable we will restart aspirin at discharge but continue to hold Plavix for another few days to equal 14 days total. ? Continue on DVT prophylaxis Lovenox 40 daily. ? MRSA nares negative. Will stop vancomycin. Continue Zosyn at this time. Patient to be discharged home on Levaquin for total of 10 days from first day of antibiotics started inpatient. ? Cut down Solu-Medrol to 40 daily. ? Cut down Lasix to 40 every 24 hours. ? EKG does show first-degree AV block. Stop metoprolol to tartrate. Continue oral amiodarone. Patient will need event monitor at discharge. ? Continue to work with physical therapy. If remains stable by tomorrow plan to discharge to nursing facility. ? Patient is on 2 L nasal cannula saturating 95%. 03/02/2024 Patient developed left hip hematoma 22 February. He is 8 days out from that point. Hematoma seems to be resolving. Hemoglobin has been stable. 8.6 range. Will restart aspirin. ? Restart Plavix tomorrow - stress test in AM - npo at midnight -First-degree AV block is resolved. Continue metoprolol to tartrate 12.5 twice daily, amiodarone daily. ? Continue Solu-Medrol 40 daily. ? Continue Lasix 40 IV twice daily for another 24 hours. ? Patient complains of left foot numbness which is intermittent and also has tingling at times. I have reviewed his records in detail he has severe peripheral arterial disease and has been following up with cardiology for that. Patient does have posterior tibial pulses by Doppler. He does have chronic constant lower extremity edema secondary to dependent legs, PAD, no physical activity. He still complains of shortness of breath. Will plan for stress test in the morning. Further management to be decided on after the stress test completes. Check chest x-ray. check ct lumbar spine and pelvis, eval for disc disease, Attestations 2 Medical Necessity Statement*: Continue to treat for pneumonia and patient. Patient is on IV antibiotics. Diagnoses Closed fracture of left hip S72.002A Encounter type: initial encounter Anemia D64.9 Acute hyponatremia E87.1 Hyperkalemia E87.5 Chronic diastolic congestive heart failure I50.32 Heart failure chronicity: chronic Heart failure type: diastolic Benign prostatic hyperplasia with incomplete bladder emptying N40.1; R39.14 Lower urinary tract symptom presence: symptoms present Lower urinary tract symptom detail: incomplete bladder emptying Coronary artery disease involving andreafski coronary artery of andreafski heart without angina pectoris I25.10 Coronary Disease-Associated Artery/Lesion type: andreafski artery [place] vs. transplanted heart: andreafski heart Associated angina: without angina Paroxysmal atrial fibrillation I48.0 Atrial fibrillation type: paroxysmal Alcohol abuse F10.10 Acute on chronic congestive heart failure with left ventricular diastolic dysfunction I50.33
[2024-03-02] MEDS: HYDROcodone-acetaminophen 5-325 mg Tablet 1 TAB PO ×2 (12:57→20:29)
[2024-03-02] MEDS: methylPREDNISolone sod succ 40 mg/mL INJ IVP ×2 (12:58→20:29)
[2024-03-02] MEDS: FUROsemide 10 mg/mL SDV 4mL 40 MG IVP (12:58)
--- NOTE | 2024-03-02 13:10 | CTR_ITS ---
PROCEDURE INFORMATION: Exam: CT Pelvis Without Contrast Exam date and time: 03/02/2024 7:02 PM Age: 73 years old Clinical indication: Other: Lt leg numbness; Additional info: Left leg numbness; Pelvis region is to assess hip hematoma TECHNIQUE: Imaging protocol: Computed tomography of the pelvis without contrast. Radiation optimization: All CT scans at this facility use at least one of these dose optimization techniques: automated exposure control; mA and/or kV adjustment per patient size (includes targeted exams where dose is matched to clinical indication); or iterative reconstruction. COMPARISON: CT abdomen pelvis w con* [id number] 02/18/2024 10:15 PM RADIATION DOSE METRICS: Total DLP (mGy-cm): 473.41 FINDINGS: Intestine: Sigmoid diverticulosis without acute diverticulitis. Appendix: No evidence of appendicitis. Intraperitoneal space: Unremarkable. No free air. No significant fluid collection. Vasculature: Infrarenal abdominal aortic aneurysm measuring up to 3.3 cm in caliber. Diffuse aortoiliac calcifications. Lymph nodes: Unremarkable. No enlarged lymph nodes. Reproductive: Normal as visualized. Urinary bladder: Normal. No mass. Bones/joints: Left femoral intramedullary nail transfixing a comminuted intertrochanteric femoral fracture. Hardware appears intact. No new fracture visualized. Advanced degenerative changes of the visualized lumbar spine. Mild ill-defined subcutaneous fat stranding along the left hip, likely posttraumatic/postsurgical. Small hematoma in the anterior compartment of the thigh adjacent to the femur fracture measuring approximately 4.4 x 3.5 cm in axial dimensions (series 13, image 81). Soft tissues: See Bones/joints finding. CT/CT pelvis con [id number] IMPRESSION: 1. Left femoral intramedullary nail transfixing an intertrochanteric femur fracture. Small hematoma in the anterior compartment of the thigh adjacent to the fracture. 2. Subcutaneous fat stranding along the lateral aspect of the hip is likely posttraumatic/postsurgical in nature. 3. Infrarenal abdominal aortic aneurysm measuring up to 3.3 cm. 4. Sigmoid diverticulosis.
--- NOTE | 2024-03-02 13:20 | PC.NURSE ---
Per Dr. Hobbs, pulses doppled to bilateral feet. Able to faintly hear posterior tibial pulse bilaterally. Dr. Hobbs advised.
[2024-03-02] MEDS: enoxaparin 40 mg/0.4 mL Syringe SUBCUT (14:12)
--- NOTE | 2024-03-02 14:41 | CTR_ITS ---
PROCEDURE INFORMATION: Exam: CTA Abdominal Aorta and Bilateral Lower Extremities (Run-off) With Contrast Exam date and time: 03/02/2024 7:09 PM Age: 73 years old Clinical indication: Numbness; Lower extremity; Left; Additional info: Pad TECHNIQUE: Imaging protocol: Computed tomographic angiography of the of the abdominal aorta, pelvis and bilateral lower extremities with contrast. 3D rendering (Not supervised by radiologist): MIP and/or 3D reconstructed images were created by the technologist. Radiation optimization: All CT scans at this facility use at least one of these dose optimization techniques: automated exposure control; mA and/or kV adjustment per patient size (includes targeted exams where dose is matched to clinical indication); or iterative reconstruction. Contrast material: OMNI 350; Contrast volume: 100 ml; Contrast route: INTRAVENOUS (IV); COMPARISON: CT angio abd aorta runof [id number] 01/17/2021 10:29 AM RADIATION DOSE METRICS: Total DLP (mGy-cm): 1039.96 FINDINGS: Aorta: Diffuse calcifications throughout the aorta. Redemonstrated infrarenal abdominal aortic aneurysm measuring 4.3 x 4.0 cm, previously 3.8 x 3.0 cm on 01/17/2021 but unchanged since 02/18/2024. An additional aneurysmal defect more inferiorly along the aorta measures 3.4 x 3.0 cm, also unchanged since 01/29/2024. An additional aneurysmal defect immediately proximal to the bifurcation measures 3.3 x 2.9 cm. Dilated ascending thoracic aorta measuring up to 4.4 cm in caliber. Celiac trunk and mesenteric arteries: No occlusion or significant stenosis. Renal arteries: No occlusion or significant stenosis. Right iliac arteries: Extensive atherosclerotic calcifications. No occlusion or significant stenosis. Right femoral/popliteal arteries: As before, there is occlusion of the distal right superficial femoral artery likely related to atherosclerotic changes. The popliteal artery also appears occluded. Right infrapopliteal arteries: Reconstitution of the vessels in the lower leg with intermittent stenoses related to atherosclerotic calcifications. Diminished flow throughout the peroneal artery. Left iliac arteries: Extensive atherosclerotic calcifications. No occlusion or significant stenosis. Left femoral/popliteal arteries: No occlusion or significant stenosis. Left infrapopliteal arteries: No occlusion or significant stenosis. Lungs: Partial collapse/consolidation of the left lower lobe. Relaxation atelectasis in the right lower lobe. Pleural spaces: Small bilateral pleural effusions. Coronary arteries: Multivessel coronary artery calcifications. Liver: No mass. Gallbladder and biliary ducts: Unremarkable. No calcified stones. No ductal dilation. Pancreas: Unremarkable. No mass. No ductal dilation. Spleen: Normal. No splenomegaly. Adrenal glands: Normal. No mass. Kidneys and ureters: Similar bilateral renal cysts as well as nonspecific perinephric fat stranding. Subcentimeter hypodensities remain too small to characterize but likely represent additional cysts. Stomach and bowel: Colonic diverticulosis without evidence of acute diverticulitis. Moderate colonic stool. No mucosal thickening or evidence of bowel obstruction. Appendix: No evidence of appendicitis. Urinary bladder: See Intraperitoneal space finding. Reproductive: Scattered penile calcifications again noted. Small bilateral hydroceles. Intraperitoneal space: Mild mesenteric edema is similar to prior. Urinary bladder wall thickening and trabeculation along with multiple diverticula are again seen, similar to prior. Lymph nodes: No lymphadenopathy. Bones/joints: Left femoral intramedullary nail transfixing a comminuted intertrochanteric femur fracture. Hardware appears intact without complication. No dislocation. Advanced multilevel spondylosis throughout the lumbar spine. Soft tissues: Subcutaneous soft tissue edema along the lateral aspect of the left hip as well as circumferentially throughout the thigh in the lower leg on the left. Small ill-defined hematoma in the anterior compartment of the left thigh adjacent to the fracture, better assessed on accompanying CT pelvis reported separately. CT/CT angio abd aorta runof [id number] IMPRESSION: 1. Ongoing occlusion of the right distal superficial femoral artery and popliteal artery. Distal reconstitution of the arteries of the lower leg with multifocal stenoses. Diminished flow throughout the right peroneal artery. Findings are overall similar to 01/17/2021. 2. Patent three-vessel runoff in the left lower extremity. 3. Left intertrochanteric femur fracture status post intramedullary nail placement. Small hematoma in the anterior compartment adjacent to the fracture. Diffuse subcutaneous soft tissue edema throughout the left lower extremity. 4. Multifocal saccular infrarenal abdominal aortic aneurysms appear similar to 02/18/2024 but have increased in size since 01/17/2021. 5. Small bilateral pleural effusions with adjacent relaxation atelectasis. Partial collapse/consolidation of the left lower lobe. Superimposed infection not entirely excluded. 6. Additional ancillary findings as above are similar to prior.
--- NOTE | 2024-03-02 15:36 | PC.OT ---
OT TREATMENT ATTEMPTED. PATIENT SLEEPING SOUNDLY.
[2024-03-02] MEDS: tamsulosin 0.4 mg Capsule 0.8 MG PO (17:07)
[2024-03-02] MEDS: iohexol 350 mg/mL 500 mL Btl (per mL) IV (19:23)
[2024-03-03] VITALS (8 sets, daily range): BP systolic 130–166; BP diastolic 81–96; PULSE 69–79; RESP 15–18; TEMP 36.4–36.8; O2SAT 93–100
[2024-03-03] MEDS: ipratropium-albuterol 3 mL Neb INHALATION ×2 (04:28→11:24)
[2024-03-03] MEDS: piperacillin-tazobactam 3.375 GM in sodium chloride 0.9% (plus) 50 ML IV (05:17)
[2024-03-03] MEDS: metoprolol tartrate 25 mg Tablet 12.5 MG PO (05:17)
[2024-03-03] MEDS: FUROsemide 10 mg/mL SDV 4mL 40 MG IVP (05:18)
[2024-03-03] MEDS: methylPREDNISolone sod succ 40 mg/mL INJ IVP (05:18)
[2024-03-03 05:20] LABS: Basophils % 0.1 %; Hematocrit 26.8 % (37-53); Lymphocytes # 0.3 10^3/uL (0.8-4.8); Lymphocytes % 2.3 %; Mean Corpuscular HGB Conc 31.3 g/dL (30-55); Mean Corpuscular Hemoglobin 29.9 pg (27-33); Mean Corpuscular Volume 95.4 fl (82-101); Monocytes # 0.5 10^3/uL (0.2-0.9); Monocytes % 4.4 %; Neutrophils # 11.02 10^3/uL (1.8-7.7); Neutrophils % 92.3 %; Nucleated Red Blood Cells % 0 %; Platelet Count 237 10^3/cmm (157-399); Red Blood Count 2.81 10^6/uL (3.85-5.65); Red Cell Distribution Width 17.6 % (12.1-15.1); White Blood Count 11.95 10^3/uL (3.29-11.43)
[2024-03-03] MEDS: HYDROcodone-acetaminophen 5-325 mg Tablet 1 TAB PO (05:43)
[2024-03-03 06:06] LABS: Anion Gap 14.8 (5-19); Blood Urea Nitrogen 36 mg/dL (8-23); Calcium 8.5 mg/dL (8.5-10.5); Carbon Dioxide 30 mmol/L (22-29); Chloride 92 mmol/L (98-107); Creatinine Clr Calc Pharmacy 53.0498; Glucose 112 mg/dL (65-115); Magnesium 1.6 mg/dL (1.7-2.3); Osmolality Calculated 285 mOsm/kg (285-295); Potassium 3.8 mmol/L (3.5-5.1); Sodium 133 mmol/L (136-145)
--- NOTE | 2024-03-03 07:09 | PC.NURSE ---
Nuc med here to transport pt downstairs for stress test
[2024-03-03] MEDS: regadenoson 0.4 Mg/5 ml Syringe IVP (07:34)
[2024-03-03] MEDS: BuSPIRONE 10 mg Tablet 5 MG PO (09:07)
[2024-03-03] MEDS: atorvastatin 40 mg Tablet PO (09:07)
[2024-03-03] MEDS: iron polysaccharide complex 150 mg Capsule PO (09:07)
[2024-03-03] MEDS: thiamine 100 mg Tablet PO (09:07)
[2024-03-03] MEDS: citalopram 20 mg Tablet PO (09:08)
[2024-03-03] MEDS: amiodarone 200 mg Tablet 400 MG PO (09:08)
[2024-03-03] MEDS: calcium carb-vit d 600mg/400unit 1 Tablet 1 EACH PO (09:08)
[2024-03-03] MEDS: aspirin 81 mg EC Tablet PO (09:08)
[2024-03-03] MEDS: multivitamin therapeutic Tablet 1 TAB PO (09:08)
[2024-03-03] MEDS: folic acid 1 mg Tablet PO (09:08)
--- NOTE | 2024-03-03 10:01 | PC.SOCIAL ---
IMM Update pg 2 of IMM Updated and reviewed w/ patient. Copy provided and copy dated initialed and placed in chart.
--- NOTE | 2024-03-03 11:10 | PM.DCS ---
Discharge Providers Date of Admission: 02/18/24 20:52 Date of Discharge: March 03, 2024 Attending Provider at Admission: Jarred Wang MD Attending Provider at Discharge: Mayda Hobbs MD Primary Care Provider: CARY Dent Diagnoses at Discharge Discharge Diagnosis (1) Closed fracture of left hip: Status: Acute Qualifiers: Encounter type: initial encounter Qualified Code(s): S72.002A - Fracture of unspecified part of neck of left femur, initial encounter for closed fracture (2) Anemia: Status: Acute (3) Acute hyponatremia: Status: Acute (4) Hyperkalemia: Status: Acute (5) CHF (congestive heart failure): Status: Chronic Qualifiers: Heart failure chronicity: chronic Heart failure type: diastolic Qualified Code(s): I50.32 - Chronic diastolic (congestive) heart failure (6) BPH (benign prostatic hyperplasia): Status: Acute Qualifiers: Lower urinary tract symptom detail: incomplete bladder emptying Lower urinary tract symptom presence: symptoms present Qualified Code(s): N40.1 - Benign prostatic hyperplasia with lower urinary tract symptoms; R39.14 - Feeling of incomplete bladder emptying (7) CAD (coronary artery disease): Status: Acute Qualifiers: Associated angina: without angina Coronary Disease-Associated Artery/Lesion type: [place] artery [place] vs. transplanted heart: [place] heart Qualified Code(s): I25.10 - Atherosclerotic heart disease of [place] coronary artery without angina pectoris (8) Afib: Status: Acute Qualifiers: Atrial fibrillation type: paroxysmal Qualified Code(s): I48.0 - Paroxysmal atrial fibrillation (9) Alcohol abuse: Status: Acute (10) Acute on chronic congestive heart failure with left ventricular diastolic dysfunction: Status: Acute Reason for Visit Reason for Visit: FALL Hospital Course Hospital Course Patient presented with a hip fracture and received an intratrochanteric nail. Postop developed a hematoma. Aspirin and Plavix were held. Hemoglobin has remained stable. They have now been restarted. He did have evidence of first-degree AV block therefore metoprolol was reduced down to 12.5 twice daily. Amiodarone to be continued as it is. He does have a history of chronic bilateral lower extremity edema and has peripheral arterial disease. These are at baseline. He did complain of shortness of breath on exertion. Which has improved. He was treated for pneumonia with antibiotics and diuresed with IV Lasix. CT aorta abdomen runoff was also completed. No critical limb ischemia noted. He did complain of left foot numbness which is also improved. He is on baseline oxygen 2 to 3 L nasal cannula at this time. Does complain of hip pain however we have encouraged him to ambulate and work with physical therapy. His pain is as expected postop. Stress test was also pursued which does not show any acute ischemia. Patient will be discharged to rehab facility with antibiotics and steroids. He should follow-up with orthopedic surgery within a week of discharge for staple removal and dressing change. Patient seen in presence of nursing staff. He is stable at time of discharge and will be going to rehab today. Please see notes for further details as pt had a prolonged hospitalization. Physical Exam Narrative: He is alert awake oriented x 3, frail, not in acute distress, on nasal cannula Chest mainly clear to auscultation bilaterally, decreased bilateral air entry. Cardiovascular normal heart sounds no murmurs Abdomen soft nontender nondistended normal bowel sounds Extremities no edema noted bilateral lower extremities, left hip hematoma resolving does have post tibial pulses by doppler but faint. Urinary Catheter Management: Ashley: Cath Placed During This Visit: yes, but has since been removed by the nurse Reason for Continuing Indwelling Catheter: Decision to DC Catheter Urinary Catheter Date of Insertion: 02/19/24 Urinary Catheter Time of Insertion: 00:12 Date Urinary Catheter Removed: 02/23/24 Time Urinary Catheter Discontinued: 09:53 Discharge Data Studies Completed and Pending Completed Studies During Hospitalization Category Date Time Status CT abdomen pelvis w con* [id number] Routine Cat Scan 02/18/24 22:[address] angio abd aorta runof 96060 Routine Cat Scan 03/02/24 14:[address] cervical spin wo con* [id number] Stat Cat Scan 02/18/24 20:[address] chest wo con 79850 Stat Cat Scan 02/28/24 13:[address] head wo con* 16261 Stat Cat Scan 02/18/24 20:[address] lumbar spine wo con* 94517 Urgent Cat Scan 03/02/24 12:[address] pelvis wo con [id number] Stat Cat Scan 03/02/24 13:10 Completed CXRP [XR chest 1V portable 15519] Stat Exams 02/18/24 19:57 Completed CXRP [XR chest 1V portable 04512] Stat Exams 02/19/24 02:37 Completed Cardiac Stress Test MIBI [Sestamibi Stress Test Request Exams 03/02/24 12:52 Draft ] Routine XR chest 1V portable [id number] Routine Exams 02/23/24 15:29 Completed XR chest 1V portable [id number] Routine Exams 02/27/24 06:00 Completed XR chest 1V portable 23577 Stat Exams 02/24/24 00:01 Completed XR chest 1V portable 17000 Stat Exams 02/25/24 07:57 Completed XR femur LT min 2V* 63732 Stat Exams 02/20/24 11:48 Completed XR hip LT 2-3V wo/w pel* [id number] Routine Exams 02/20/24 11:30 Completed XR hip LT 2-3V wo/w pel* 16942 Routine Exams 02/20/24 14:09 Completed XR hip LT 2-3V wo/w pel* [id number] Stat Exams 02/18/24 19:55 Completed XR pelvis 1-2V* 69817 Routine Exams 02/20/24 11:50 Completed NM andreina perf SPECT r/s* 79527 Routine Nuc Med 03/03/24 12:53 Completed CV. echo complete* 44736 Routine Ultrasound 02/28/24 13:06 Completed US venous duplex lower extremity LT [CV venous duplex Ultrasound 02/19/24 00:41 [place] [address]] Urgent US venous duplex lower extremity bilat [CV venous Ultrasound 02/28/24 13:05 [place] [id number]] Routine Pending at discharge Category Date Time Status CT angio chest PE protcl [id number] Routine Cat Scan 03/03/24 09:30 Ordered Sputum Culture and Gram Stain Stat Lab 02/29/24 12:33 Uncollected Radiology Impressions Cervical Spine CT 02/18/24 20:14 IMPRESSION: Limited examination due to motion artifact but there is no gross fracture. Head CT 02/18/24 20:14 IMPRESSION: No acute intracranial abnormality. Senescent changes. Abdomen/Pelvis CT 02/18/24 22:00 IMPRESSION: 1. Increase in size of a saccular infrarenal abdominal aortic aneurysm arising from a focal chronic dissection, now measuring up to 4.9 cm (previously up to 3.7 cm in 2020). The aneurysm sac drapes along the prevertebral space, which may suggest impending rupture. 2. Additional multifocal aneurysms of the visualized descending aorta and distal infrarenal abdominal aorta are unchanged since 2020. 3. Mildly comminuted left femoral intertrochanteric fracture with associated local inflammatory changes and edema. Ill-defined fat stranding along the femoral vasculature, with heterogeneity of the visualized left femoral vein raises suspicion for possible deep venous thrombosis. Recommend left lower extremity Doppler ultrasound for further assessment. Chest CTA may also be obtained if there is clinical suspicion for pulmonary embolism in the setting of recent fracture. 4. Pronounced bladder diverticulosis and extensive trabeculation and layering calculi within the diverticula. Findings may be related to neurogenic bladder or chronic outlet obstruction. Mild thickening may suggest cystitis in the appropriate clinical setting. 5. Multiple partially imaged chronic bilateral rib fractures. COMMENT: THIS REPORT CONTAINS FINDINGS THAT MAY BE CRITICAL TO PATIENT CARE. The exam findings were verbally communicated by me to RICKY LANDA via telephone conference at 10:52 PM OCCUPATIONAL THERAPY AIDE on 02/18/2024. The findings were acknowledged and understood. COMMENTS: Consistent with the [place] [employer]'s Incidental Findings Committee white paper (J Am Rusty Radiol 2018): Any incidental renal lesion less than 1 cm or classified as too small to characterize, or any incidental cystic renal lesion characterized as simple-appearing, is likely benign. No follow-up imaging is recommended for these lesions per consensus recommendations based on imaging criteria. Femur X-Ray 02/20/24 11:48 IMPRESSION: 1. Impacted, comminuted, slightly displaced fracture intertrochanteric proximal left femur with resultant slight varus deformity. 2. Additional details as above. Pelvis X-Ray 02/20/24 11:50 IMPRESSION: Comminuted, impacted, slightly displaced fracture intertrochanteric left femur with resultant slight varus deformity. Hip/Pelvis X-Ray 02/20/24 14:09 IMPRESSION: Satisfactory immediate postoperative appearance of internal fixation left femoral intertrochanteric fracture. Chest X-Ray 02/27/24 06:00 follow up IMPRESSION: 1. Moderate cardiomegaly with vascular congestion. 2. Stable appearance of the chest. 3. Small left pleural effusion not significantly changed. Chest CT 02/28/24 13:00 IMPRESSION: 1. Aneurysmal ascending thoracic aorta measuring 4.7 cm similar to previous. 2. Saccular partially visualized infrarenal abdominal aneurysm measuring 4.1 x 4.7 cm also similar to previous. 3. Small bilateral pleural effusions with subtotal consolidation LEFT lower lobe. Recommend correlation for pneumonia. 4. Thoracic kyphosis with multiple chronic appearing compression fractures some of which are new compared to 03/11/2023 but have a chronic appearance. Lumbar Spine CT 03/02/24 12:51 IMPRESSION: 1. Advanced multilevel lumbar spondylosis. 2. No acute osseous findings. 3. Infrarenal abdominal aortic aneurysm. Please see separate CTA abdomen/pelvis report for further detail. Pelvis CT 03/02/24 13:10 IMPRESSION: 1. Left femoral intramedullary nail transfixing an intertrochanteric femur fracture. Small hematoma in the anterior compartment of the thigh adjacent to the fracture. 2. Subcutaneous fat stranding along the lateral aspect of the hip is likely posttraumatic/postsurgical in nature. 3. Infrarenal abdominal aortic aneurysm measuring up to 3.3 cm. 4. Sigmoid diverticulosis. Aorta w/Runoff CTA 03/02/24 14:41 IMPRESSION: 1. Ongoing occlusion of the right distal superficial femoral artery and popliteal artery. Distal reconstitution of the arteries of the lower leg with multifocal stenoses. Diminished flow throughout the right peroneal artery. Findings are overall similar to 01/17/2021. 2. Patent three-vessel runoff in the left lower extremity. 3. Left intertrochanteric femur fracture status post intramedullary nail placement. Small hematoma in the anterior compartment adjacent to the fracture. Diffuse subcutaneous soft tissue edema throughout the left lower extremity. 4. Multifocal saccular infrarenal abdominal aortic aneurysms appear similar to 02/18/2024 but have increased in size since 01/17/2021. 5. Small bilateral pleural effusions with adjacent relaxation atelectasis. Partial collapse/consolidation of the left lower lobe. Superimposed infection not entirely excluded. 6. Additional ancillary findings as above are similar to prior. Laboratory Results WBC 11.95 10^3/uL (3.29-11.43) H 03/03/24 05:11 RBC 2.81 10^6/uL (3.85-5.65) L 03/03/24 05:11 Hgb 8.40 g/dL (11.27-16.99) L 03/03/24 05:11 Hct 26.8 % (37-53) L 03/03/24 05:11 MCV 95.4 fl (82-101) 03/03/24 05:11 MCH 29.9 pg (27-33) 03/03/24 05:11 MCHC 31.3 g/dL (30-55) 03/03/24 05:11 RDW 17.6 % (12.1-15.1) H 03/03/24 05:11 Plt Count 237 10^3/cmm (157-399) 03/03/24 05:11 MPV 9.0 fL (7.4-10.4) 03/03/24 05:11 Neut % (Auto) 92.3 % 03/03/24 05:11 Lymph % (Auto) 2.3 % 03/03/24 05:11 Yates % (Auto) 4.4 % 03/03/24 05:11 Eos % (Auto) 0.0 % 03/03/24 05:11 Baso % (Auto) 0.1 % 03/03/24 05:11 Neut # (Auto) 11.02 10^3/uL (1.8-7.7) H 03/03/24 05:11 Lymph # (Auto) 0.3 10^3/uL (0.8-4.8) L 03/03/24 05:11 Yates # (Auto) 0.5 10^3/uL (0.2-0.9) 03/03/24 05:11 Eos # (Auto) 0.0 10^3/uL (0.0-0.8) 03/03/24 05:11 Baso # (Auto) 0.0 10^3/uL (0.0-0.1) 03/03/24 05:11 Nucleated RBC % (auto) 0 % 03/03/24 05:11 Nucleated RBCs # 0.0 /100WBC 03/03/24 05:11 PT 13.60 SECONDS (12.1-14.9) 02/18/24 20:09 INR 1.01 (0.8-1.2) 02/18/24 20:09 Specimen Type Arterial 02/24/24 00:48 Sample Site Radial, right 02/24/24 00:48 ABG pH 7.37 (7.35-7.45) 02/24/24 00:48 ABG pCO2 44.6 mmHg (35-45) 02/24/24 00:48 ABG pO2 80.7 mmHg (80.0-100.0) 02/24/24 00:48 ABG PO2/FiO2 Ratio 224 02/24/24 00:48 ABG HCO3 26.0 mmol/L (22-26) 02/24/24 00:48 ABG O2 Saturation 96.3 02/24/24 00:48 ABG Base Excess 0.6 mmol/L (-2.0-2.0) 02/24/24 00:48 Alberto Test Pos 02/24/24 00:48 A-a O2 Gradient 15.5 mmHg (5-10) H 02/24/24 00:48 Hematocrit 27.1 % (42-52) L 02/24/24 00:48 Hgb O2 Saturation 93.4 % (95-100) L 02/24/24 00:48 Carboxyhemoglobin 1.7 %THgb (0.4-20.1) 02/24/24 00:48 Methemoglobin 1.3 % (0.4-1.5) 02/24/24 00:48 Total Hemoglobin 8.8 g/dL (14-18) L 02/24/24 00:48 Sodium 133.0 mmol/L (131-143) 02/24/24 00:48 Potassium 4.6 mmol/L (3.5-5.0) 02/24/24 00:48 Glucose 96.0 mg/dL (70-115) 02/24/24 00:48 Ionized Calcium 1.3 mmol/L (1.1-1.4) 02/24/24 00:48 O2 Delivery Device Nc 02/24/24 00:48 O2 Liters/Min 4.0 % 02/24/24 00:48 FiO2 36.0 % 02/24/24 00:48 [employer] Driver ID [id number] 02/24/24 00:48 Sodium 133 mmol/L (136-145) L 03/03/24 05:11 Potassium 3.8 mmol/L (3.5-5.1) 03/03/24 05:11 Chloride 92 mmol/L (98-107) L 03/03/24 05:11 Carbon Dioxide 30 mmol/L (22-29) H 03/03/24 05:11 Anion Gap 14.8 (5-19) 03/03/24 05:11 BUN 36 mg/dL (8-23) H 03/03/24 05:11 Creatinine 1.4 mg/dL (0.7-1.2) H 03/03/24 05:11 GFR Calculation Not Reportable 03/03/24 05:11 Glucose 112 mg/dL (65-115) 03/03/24 05:11 POC Glucose 109 mg/dL (70-110) 02/19/24 04:21 Calculated Osmolality 285 mOsm/kg (285-295) 03/03/24 05:11 Calcium 8.5 mg/dL (8.5-10.5) 03/03/24 05:11 Phosphorus 4.5 mg/dL (2.5-4.5) 02/19/24 04:20 Magnesium 1.6 mg/dL (1.7-2.3) L 03/03/24 05:11 Iron 34 ug/dL (59-158) L 02/18/24 20:09 TIBC 163 mcg/dl 02/18/24 20:09 % Saturation 20.8 % (20-50) 02/18/24 20:09 Unsat Iron Binding 129 ug/dL (112-347) 02/18/24 20:09 Ferritin 248 ng/mL (30-400) 02/18/24 20:09 Total Bilirubin 0.3 mg/dL (0.15-1.2) 02/18/24 20:09 AST 38 U/L (0-40) 02/18/24 20:09 ALT 15 U/L (0-41) 02/18/24 20:09 Alkaline Phosphatase 94 U/L (40-130) 02/18/24 20:09 Troponin T Baseline 47 ng/L (0-15) H 02/28/24 13:31 Troponin T 120 Minute 46.29 ng/L (0-15) H 02/28/24 15:37 Delta Troponin T -0.71 ABS# (0-10) L 02/28/24 15:37 Troponin T Hi Sens 6Hr 40.51 ng/L (0-15) H 02/28/24 19:21 Troponin T Hi Sens 6Hr Delta -6.49 ng/L (0-12) L 02/28/24 19:21 C-Reactive Protein 8.2 mg/L (0.0-4.9) H 02/19/24 07:11 NT-Pro-B Natriuret Pep 3178 pg/mL (0-450) H 02/19/24 04:20 Total Protein 6.1 g/dL (6.6-8.7) L 02/18/24 20:09 Albumin 3.5 g/dL (3.5-5.2) 02/18/24 22:09 Globulin 2.7 g/dL (1.3-4.6) 02/18/24 20:09 Procalcitonin 0.20 ng/mL (0-0.5) 02/19/24 07:11 TSH 2.39 uIU/mL (0.27-4.20) 02/18/24 22:09 Urine Color Yellow (Yellow) 02/24/24 00:50 Urine Appearance Clear (CLEAR) 02/24/24 00:50 Urine pH 5.5 (5-7) 02/24/24 00:50 Ur Specific [place] 1.022 (1.005-1.030) 02/24/24 00:50 Urine Protein 1+ (Negative) A 02/24/24 00:50 Urine Glucose (UA) Negative (Normal) 02/24/24 00:50 Urine Ketones Trace (Negative) 02/24/24 00:50 Urine Blood Negative (Negative) 02/24/24 00:50 Urine Nitrate Negative (Negative) 02/24/24 00:50 Urine Bilirubin Negative (Negative) 02/24/24 00:50 Urine Urobilinogen 1.0 mg/dL (Negative) 02/24/24 00:50 Ur Leukocyte Esterase 1+ (Negative) A 02/24/24 00:50 Urine RBC 3-5 /hpf (0-2) 02/24/24 00:50 Urine WBC 11-20 /hpf (0-5) H 02/24/24 00:50 Ur Squamous Epith Cells 0-5 /hpf (0-5) 02/24/24 00:50 Amorphous Sediment Not Reportable 02/24/24 00:50 Urine Bacteria None seen /hpf (NONE) 02/24/24 00:50 Hyaline Casts 4.52 /lpf 02/24/24 00:50 Ur Random Sodium 56 mmol/L 02/19/24 01:57 Ur Random Potassium 40 mmol/L 02/19/24 01:57 Ur Random Chloride 84 mmol/L 02/19/24 01:57 Nasal MRSA (PCR) Not detected (Negative) 03/01/24 11:15 Hep Bs Antigen Non-reactive (Nonreactive) 02/20/24 04:50 Hepatitis C Antibody Non-reactive (Nonreactive) 02/20/24 04:50 HIV 1&2 Ab & HIV 1 Ag Non-reactive (Non-Reactiv) 02/20/24 04:20 HIV 1&2 Antibody Non-reactive (Non-Reactiv) 02/20/24 04:20 SARS-CoV-2 Ag (Rapid) Negative (Negative) 03/02/24 08:52 Blood Type B Positive 02/19/24 00:00 Rho(D) Type Rh positive 02/19/24 00:00 Antibody Screen Negative 02/19/24 00:00 Crossmatch See Detail 02/19/24 00:00 Vitals Last Vital Signs Temp 97.5 F L 03/03/24 04:00 Pulse 79 03/03/24 07:48 Resp 18 03/03/24 04:28 BP 166/96 03/03/24 07:48 Pulse Ox 98 03/03/24 04:28 O2 Del Method Nasal Cannula 03/03/24 04:28 O2 Flow Rate 3 03/03/24 06:58 FiO2 36 02/28/24 13:20 Discharge Plan Discharge Patient Disposition: Xfer SNF Condition: Stable Prescriptions: New polysaccharide iron complex [Ferrex 150] 150 mg iron Capsule 150 mg PO BIDWM Qty: 30 0RF metoprolol tartrate 25 mg Tablet 12.5 mg PO Q12H Qty: 60 0RF thiamine mononitrate (vit B1) [Vitamin B-1 (mononitrate)] 100 mg Tablet 100 mg PO DAILY Qty: 30 0RF multivitamin with folic acid [Thera] 400 mcg Tablet 1 tab PO DAILY Qty: 30 0RF levofloxacin 750 mg tablet 750 mg PO DAILY 7 Days Qty: 7 0RF enoxaparin 40 mg/0.4 mL Syringe 40 mg SUBCUT Q24H 30 Days Qty: 12 0RF prednisone 20 mg tablet 20 mg PO BID 3 Days Qty: 6 0RF Continued multivitamin Tablet 1 tab PO DAILY 90 Days Qty: 90 1RF atorvastatin 40 mg tablet 40 mg PO DAILY 90 Days Qty: 90 1RF aspirin [Adult Low Dose Aspirin] 81 mg tablet,delayed release (DR/EC) 81 mg PO DAILY albuterol sulfate 90 mcg/actuation HFA aerosol inhaler 1 puff inhalation Q4H PRN (Reason: Shortness Of Breath Or Wheezing) Qty: 8.5 3RF ipratropium-albuterol 0.5 mg-3 mg(2.5 mg base)/3 mL solution for nebulization 3 ml INHALATION Q6H PRN (Reason: Shortness Of Breath) Qty: 180 3RF Pacerone 200 mg tablet 400 mg PO DAILY Qty: 180 1RF pantoprazole 40 mg tablet,delayed release (DR/EC) 40 mg PO DAILY 90 Days Qty: 180 1RF cyclobenzaprine 5 mg tablet 5 mg PO BID PRN (Reason: muscle spasm) 30 Days Qty: 60 1RF budesonide-formoterol [Symbicort] 160-4.5 mcg/actuation HFA aerosol inhaler 2 puff inhalation BID Qty: 10.2 6RF citalopram 20 mg tablet 20 mg PO DAILY 30 Days Qty: 30 0RF cyanocobalamin (vitamin B-12) 1,000 mcg capsule 1,000 mcg PO DAILY 30 Days Qty: 30 0RF furosemide [Lasix] 40 mg tablet 40 mg PO DAILY tamsulosin 0.4 mg capsule 0.8 mg PO QPM gabapentin 300 mg capsule 300 mg PO QPM buspirone 5 mg Tablet 5 mg PO BID clopidogrel [Plavix] 75 mg Tablet 75 mg PO DAILY Mucinex DM 30-600 mg Tablet Extended Release 12 Hr 1 tab PO Q12H fluticasone propionate 50 mcg/actuation Stella,Suspension 1 spray INTRANASAL DAILY Rx Instructions: administer into each nostril folic acid 1 mg Tablet 1 mg PO DAILY magnesium L-lactate 84 mg Tablet Extended Release 84 mg PO DAILY thiamine mononitrate (vit B1) [Vitamin B-1 (mononitrate)] 100 mg Tablet 100 mg PO DAILY Qty: 30 0RF Discontinued metoprolol tartrate 50 mg tablet 50 mg PO BID Discharge Orders: Discharge Order (Routine); Ordered 03/03/24 Ordered By: Mayda Hobbs Other Ambulatory Orders: Complete Blood Count w/Auto (Q4D) Timeframe: 20240305 Location: Determined by Patient Ordered By: Mayda Hobbs Complete Blood Count w/Auto (Q4D) Timeframe: 20240309 Location: Determined by Patient Ordered By: Mayda Hobbs Complete Blood Count w/Auto (Q4D) Timeframe: 20240313 Location: Determined by Patient Ordered By: Mayda Hobbs Referrals: [facility] [Outside] FELIPE Hector, LOAN CLOSER [Primary Care Provider] - Baljinder Varela DO [Physician] - 03/31/24 8:45 am Discharge Diet: Cardiac Discharge Activity: As per PT/OT instructions Patient Instructions: Acute Wound Care (DC), Opioid Safety, Post Anesthesia Care Activity Restrictions/Additional Instructions: Postop Troch Nail Orthopedic discharge instructions: Weightbearing as tolerated to the operative extremity Ice as needed for pain and swelling Encourage knee and hip range of motion as tolerated PT/OT Take pain medication as prescribed Take antinausea medication as needed Supplement with Citracal vitamin D for bone health and healing Take (blood thinner) as prescribed for blood clot prevention by primary team Take Colace as needed for constipation Leave Silverlon/soft dressings on and in place for 7 days. After this they may be removed you may shower/rinse incisions with warm soapy water, pat dry redress with a dry dressing. Okay to sponge bath/shower with Silverlon dressings as they should be waterproof however if they do get saturated or wet please take these off dry the incision and redressed with a new dry sterile bandage.? Follow-up in the orthopedic office with Dr. Varela in 2 weeks for repeat x-rays and incision check/staple removal Contact the office for any questions or concerns (i.e. increasing redness and drainage around the incision, fevers, or chills, or severe worsening in pain/change in symptoms) Discharge Attestations Time Spent in Discharge Care*: greater than 30 min Quality Metrics Clinical Quality Measures [ No reported AMI, CVA or VTE this stay] Coding Level of Care Code Acute Code for Chg Fwd Diagnoses Closed fracture of left hip S72.002A Encounter type: initial encounter Anemia D64.9 Acute hyponatremia E87.1 Hyperkalemia E87.5 Chronic diastolic congestive heart failure I50.32 Heart failure chronicity: chronic Heart failure type: diastolic Benign prostatic hyperplasia with incomplete bladder emptying N40.1; R39.14 Lower urinary tract symptom detail: incomplete bladder emptying Lower urinary tract symptom presence: symptoms present Coronary artery disease involving [place] coronary artery of [place] heart without angina pectoris I25.10 Associated angina: without angina Coronary Disease-Associated Artery/Lesion type: [place] artery [place] vs. transplanted heart: [place] heart Paroxysmal atrial fibrillation I48.0 Atrial fibrillation type: paroxysmal Alcohol abuse F10.10 Acute on chronic congestive heart failure with left ventricular diastolic dysfunction I50.33
--- NOTE | 2024-03-03 11:59 | PC.NURSE ---
Report called to Wendy at [facility] [place].
--- NOTE | 2024-03-03 12:53 | NMCV_ITS ---
NM andreina perf SPECT r/s* [id number] Jamie Davison Age: 73 Gender: M : 1950 Exam Date: 03/03/2024 07:01 Ordering Phys: Mayda Hobbs MD Technologist: KATIE Gregorio Exam Location: [facility] Indications: CP STRESS TEST Please see separate stress test report in [facility] for full findings IMAGE PROTOCOL Rest/Stress 1 Lexiscan Day Radiopharmaceutical Dose (mCi) Administration Site Administered by Rest: Tc-99m 10.7 IV Janice Rosales, BLADDER TRIMMER Sestamibi Stress:Tc-99m 30 IV Janice Rosales, BLADDER TRIMMER Sestamibi Rest: 03-Mar-2024 60 Discovery 630 Stress: 03-Mar-2024 30 Discovery 630 0.4mg Lexiscan. Supine position only as patient was unable to lay prone. SPECT RESULTS Technical Quality: Poor Raw Data Analysis: Normal Image Corrections: No attenuation or motion correction applied Summed Stress Score: 7 Summed Rest Score: 9 Summed Difference Score: 0 PERFUSION FINDINGS Medium to large sized area of fixed perfusion defect in the inferior and inferolateral coroan. This is consistnet with medium to large area of prior infarct in the inferior and inferolateral corona. No evidence of ischemia. FUNCTIONAL RESULTS (calculated via Gated SPECT) Stress Image LV EF (%): 63 Stress EDV (mL):115 TID: 1.11 Stress ESV (mL):42 FUNCTIONAL FINDINGS: There is normal left ventricular systolic function. IMPRESSIONS 1. Abnormal myocardial perfusion imaging with medium to large sized area of prior infarct seen in the inferior and inferolateral corona. No evidence of ischemia. 2. LV systolic function is normal Gamaliel Varela MD (Electronically Signed) Final Date: 03 March 2024 09:37 S
== END 2024-03-03 12:46 | disposition skilled nursing facility (03) | DRG 480 ==
LOC: ER 21:15 → MEDSURG 21:36 → ICU 22:06 → MEDSURG 02-22 17:25
PROVIDERS: Internal Medicine; Physician Assistant; Student in an Organized Health Care Education/Training Program; Admitting Provider Internal Medicine; Emergency Provider Emergency Medicine; PCP Nurse Practitioner Family; Visit Provider Internal Medicine
PROC: 0QS706Z Reposition Left Upper Femur with Intramedullary Internal Fixation Device, Open Approach (ICD-10-PCS; CPT 27245; principal; 2024-02-20 08:00)
DX: S72.142A Displaced intertrochanteric fracture of left femur, initial encounter for closed fracture (principal); I50.33 Acute on chronic diastolic (congestive) heart failure; J69.0 Pneumonitis due to inhalation of food and vomit; E87.1 Hypo-osmolality and hyponatremia; I13.0 Hypertensive heart and chronic kidney disease with heart failure and stage 1 through stage 4 chronic kidney disease, or unspecified chronic kidney disease; M96.841 Postprocedural hematoma of a musculoskeletal structure following other procedure; J96.11 Chronic respiratory failure with hypoxia; N39.0 Urinary tract infection, site not specified; J44.1 Chronic obstructive pulmonary disease with (acute) exacerbation; D63.8 Anemia in other chronic diseases classified elsewhere; E87.5 Hyperkalemia; N18.9 Chronic kidney disease, unspecified; N40.1 Benign prostatic hyperplasia with lower urinary tract symptoms; R39.14 Feeling of incomplete bladder emptying; I25.10 Atherosclerotic heart disease of native coronary artery without angina pectoris; I48.91 Unspecified atrial fibrillation; I44.0 Atrioventricular block, first degree; I73.9 Peripheral vascular disease, unspecified; F10.10 Alcohol abuse, uncomplicated; E78.5 Hyperlipidemia, unspecified; J43.9 Emphysema, unspecified; F41.9 Anxiety disorder, unspecified; F32.A Depression, unspecified; D64.89 Other specified anemias; W19.XXXA Unspecified fall, initial encounter; Y83.8 Other surgical procedures as the cause of abnormal reaction of the patient, or of later complication, without mention of misadventure at the time of the procedure; Z66 Do not resuscitate; Z87.891 Personal history of nicotine dependence; Z79.02 Long term (current) use of antithrombotics/antiplatelets; Z79.82 Long term (current) use of aspirin
CPT/HCPCS: 36415; 36416; 36430; 36569; 36592; 36600; 51702; 51798; 70450; 71045; 71250; 72125; 72131; 72170; 72192; 73502; 73552; 74177; 75635; 76000; 78452; 80048; 80051; 80053; 80069; 81001; 82330; 82436; 82728; 82805; 82962; 83540; 83550; 83735; 83880; 84100; 84133; 84145; 84300; 84443; 84484; 85014; 85018; 85025; 85610; 86140; 86803; 86850; 86900; 86920; 87040; 87086; 87340; 87426; 87806; 93005; 93017; 93306; 93970; 93971; 94640; 94660; 96360; 96372; 96375; 96376; 97110; 97116; 97162; 97165; 97530; 97535; 99285; A9500; C1713; C1751; J0131; J0612; J0690; J0692; J0696; J1100; J1650; J1885; J1940; J2020; J2060; J2371; J2405; J2543; J2704; J2785; J2919; J3010; J3370; J3372; J3475; J3490; J7030; J7050; J7613; J7626; P9016; P9040; P9046

== ENCOUNTER 2024-03-11 16:26 | Inpatient (IN) | payer MEDICARE, SELFPAY ==
[2024-03-11] VITALS (30 sets, daily range): BP systolic 85–133; BP diastolic 54–86; PULSE 80–124; RESP 16–30; TEMP 36.6–37.5; O2SAT 86–100; BMI 23.5; BMI 23.6
--- NOTE | 2024-03-11 16:30 | ECG_ITS ---
[employer] Test Date: 2024-03-11 Pat Name: Jamie Davison Department: Room: Gender: Male Project Economist: : 1950 Requested By: Dana Silva Order Number: [id number] Bob MD: Noel Mcclure M.D. Measurements Intervals [place] Rate: 95 P: 0 OR: 0 QRS: 79 QRSD: 107 T: 32 QT: 386 QTc: 487 Interpretive Statements possible sinus rhythm with first-degree AV block and supraventricular ectopic ST DEVIATION AND MODERATE T-WAVE ABNORMALITY, CONSIDER ANTEROLATERAL ISCHEMIA [-0.1+ mV T-WAVE IN V3-V6] Compared to ECG 03/01/2024 10:29:55 No significant changes Electronically Signed On 03-12-2024 22:33:05 PUBLICITY DIRECTOR by Noel Mcclure M.D. [id number]
--- NOTE | 2024-03-11 16:30 | XRR_ITS ---
PROCEDURE INFORMATION: Exam: XR Chest Exam date and time: 03/11/2024 4:51 PM Age: 73 years old Clinical indication: Shortness of breath; Prior surgery; Surgery date: 6+ months; Surgery type: Aorta-femoral bypass; Patient HX: PT here via EMS with C/O SOB x 2 days. EMS states PT has been noncompilant with oxygen and breathing tx. EMS states that PT was 80s on 5 L nc upon arrival. PT was given a duoneb and albuterol en route. EMS reports PT is a hallucinations. EMS reports a PT HX of copd. PT had left hip surgery approx 2 weeks ago. HX emphysema lung. TECHNIQUE: Imaging protocol: Radiologic exam of the chest. Views: 1 view. COMPARISON: CT chest con [id number] 02/28/2024 2:31 PM FINDINGS: Lungs: No pulmonary consolidation is radiographically apparent. There was atelectasis or consolidation in the left lung base on prior CT in the retrocardiac region which is not well visualized or confirmed on this frontal view. Minimal atelectasis in lung bases. Calcified granuloma in the right upper lobe. Pleural spaces: No pneumothorax or pleural effusion is seen. Heart/Mediastinum: Normal size of the cardiac silhouette. Vasculature: There is atherosclerosis in the thoracic aorta. Diaphragm: Mild elevation of the left hemidiaphragm compared to the right without significant change from prior. Bones/joints: Mild scattered degenerative changes in the spine and shoulders. The remote posterior left rib fractures seen on comparison CT are not well visualized radiographically. XR/XR chest 1V portable [id number] IMPRESSION: 1. No radiographically apparent acute cardiopulmonary disease. Previously seen small pleural effusions and lung base atelectasis or consolidation on recent CT exams are not well confirmed on this portable radiograph. This may require repeat CT if clinically warranted for follow-up.
--- NOTE | 2024-03-11 16:34 | ED_ITS ---
HPI - SOB/Dyspnea 2 General: Chief Complaint: Shortness of Breath/Dyspnea Stated Complaint: sob Time Seen by Provider: 03/11/24 16:27 History of Present Illness: HPI Narrative: 73-year-old man with a history of end-st age COPD, coronary artery disease, A- fib, he is on Plavix and Lovenox therapy daily, CHF, hypertension, who presents to the emergency room by ambulance [facility]. He had been listed as DNR, but EMS reports that the family was there today and they want everything done which would include intubation if that becomes necessary. Unclear about CPR. He had been less responsive but after breathing treatment increased oxygen he seems to be a bit more alert but can become agitated. He is on oxygen but EMS reports has had increased requirements. Related Data Home Medications Medication Instructions Recorded Confirmed aspirin 81 mg tablet,delayed 81 mg PO DAILY 12/23/23 02/19/24 release (Adult Low Dose Aspirin) buspirone 5 mg tablet 5 mg PO BID 02/19/24 02/19/24 clopidogrel 75 mg tablet (Plavix) 75 mg PO DAILY 02/19/24 02/19/24 dextromethorphan-guaifenesin 30 1 tab PO Q12H 02/19/24 02/19/24 mg-600 mg tablet extended [id number] hr (Mucinex DM) fluticasone propionate 50 1 spray intranasal DAILY 02/19/24 02/19/24 mcg/actuation nasal spray,suspension folic acid 1 mg tablet 1 mg PO DAILY 02/19/24 02/19/24 furosemide 40 mg tablet (Lasix) 40 mg PO DAILY Edema 02/19/24 02/19/24 gabapentin 300 mg capsule 300 mg PO QPM 02/19/24 02/19/24 magnesium L-lactate 84 mg 84 mg PO DAILY 02/19/24 02/19/24 tablet,extended release tamsulosin 0.4 mg capsule 0.8 mg PO QPM 02/19/24 02/19/24 Previous Rx's Medication Instructions Recorded multivitamin 1 tab PO DAILY 90 days #90 tabs 05/01/22 cyanocobalamin (vitamin B-12) 1,000 mcg PO DAILY 30 days #30 caps 08/27/22 1,000 mcg capsule atorvastatin 40 mg tablet 40 mg PO DAILY 90 days #90 tabs 07/23/23 thiamine mononitrate (vit B1) 100 100 mg PO DAILY #30 tabs 07/27/23 mg tablet (Vitamin B-1 (mononitrate)) albuterol sulfate 90 mcg/actuation 1 puff inhalation Q4H PRN 12/23/23 aerosol inhaler Shortness Of Breath Or Wheezing #8.5 grams amiodarone 200 mg tablet (Pacerone) 400 mg (2 x 200 mg) PO DAILY #180 12/23/23 tabs ipratropium 0.5 mg-albuterol 3 mg 3 ml inhalation Q6H PRN Shortness 12/23/23 (2.5 mg base)/3 mL nebulization Of Breath #180 mL soln pantoprazole 40 mg tablet,delayed 40 mg PO DAILY 90 days #180 tabs 12/23/23 release budesonide-formoterol HFA 160 2 puff inhalation BID #10.2 grams 02/08/24 mcg-4.5 mcg/actuation aerosol inhaler (Symbicort) citalopram 20 mg tablet 20 mg PO DAILY 30 days #30 tabs 02/08/24 cyclobenzaprine 5 mg tablet 5 mg PO BID PRN muscle spasm 30 02/08/24 days #60 tabs enoxaparin 40 mg/0.4 mL 40 mg (0.4 mL) SUBCUT Q24H 30 days 03/02/24 subcutaneous syringe #12 mL metoprolol tartrate 25 mg tablet 12.5 mg (1/2 x 25 mg) PO Q12H #60 03/02/24 tabs multivitamin with folic acid 400 1 tab PO DAILY #30 tabs 03/02/24 mcg tablet (Thera) polysaccharide iron complex 150 mg 150 mg PO BIDWM #30 caps 03/02/24 iron capsule (Ferrex) thiamine mononitrate (vit B1) 100 100 mg PO DAILY #30 tabs 03/02/24 mg tablet (Vitamin B-1 (mononitrate)) Allergies Allergy/AdvReac Type Severity Reaction Status Date / Time bupropion [From Wellbutrin] Allergy Mild ALGY-Hives Verified 02/08/24 09:11 insect venom Allergy ALGY-Swell Verified 02/08/24 09:11 Lip/Tongue/Throat Review of Systems 2 General: Reports: ROS unobtainable due to medical condition [facility] 2 PFSH: Medical History (Updated 03/11/24 @ 18:16 by Dana Gonzalez MD) Alcoholism Hyperkalemia Positive cardiac stress test CAD (coronary artery disease) Afib CHF exacerbation History of spinal fracture Chronic back pain BPH (benign prostatic hyperplasia) Anxiety and depression Bacterial UTI Orthopnea Dyspnea, unspecified Enrolled in chronic care management PLEASE DO NOT REMOVE FROM ACTIVE Generalized weakness Encounter for smoking cessation counseling Alcohol abuse with withdrawal Chronic hypoxic respiratory failure Atrial fibrillation with rapid ventricular response Chronic kidney disease (CKD) COPD (chronic obstructive pulmonary disease) Acute exacerbation of CHF (congestive heart failure) Protein calorie malnutrition Diastolic CHF Chronic anticoagulation Physical deconditioning Vasculopathy CKD (chronic kidney disease) Alcohol abuse Acute kidney injury Alcohol cessation counseling Claudication Environmental and seasonal allergies Venous stasis Arthritis of ankle, left Emphysema lung Abnormality of lung on chest x-ray Encounter for screening for cardiovascular disorders History of abnormal breathing pattern BPH loc w urin obs/LUTS COPD (chronic obstructive pulmonary disease) AAA (abdominal aortic aneurysm) CHF (congestive heart failure) Dyslipidemia PAD (peripheral artery disease) HTN (hypertension) Surgical History Previous back surgery Hx of aorto-femoral bypass Hx of hand surgery Family History Father Hypertension CAD (coronary artery disease) Myocardial infarction Stroke Mother Cancer Denies family history of Diabetes Clotting disorder Dementia Chronic kidney disease (CKD) Suicide Anesthesia complication Bleeding disorder Lung disease Social History Smoking and tobacco/nicotine status: former use of tobacco/nicotine Quit status (tobacco/nicotine): has quit using Year quit tobacco: 2012 Former quit date comment: 1.5-2 ppd X 30 years Alcohol intake: current Alcohol intake frequency: few times a week Substance/Drug Use: never Lives independently: Yes Housing: House Marital status: Current occupational status: retired Physical Exam 2 Narrative: EXAM NARRATIVE: General: Alert, moderate distress. Skin: Warm, dry. Head: Normocephalic, atraumatic. Neck: Supple, trachea midline. Eye: Extraocular movements are intact. Ears, nose, mouth and throat: Tacky oral mucosa Cardiovascular: Regular rate and rhythm, Normal peripheral perfusion. Respiratory: coarse, scattered wheeze, moderate increased wob. tachypnea, prolonged expiratory phase. breath sounds are equal, Symmetrical chest wall expansion. Gastrointestinal: Soft, Nontender, Non distended, Normal bowel sounds. Musculoskeletal: Normal ROM, no deformity. Neurological: No focal neurological deficit observed. Psychiatric: Patient is somewhat somnolent and confused. Course 2 Vital Signs: Vital signs: Vital Signs Temperature 98.8 F 03/11/24 16:28 Pulse Rate 110 H 03/11/24 16:57 Respiratory Rate 23 H 03/11/24 16:45 Blood Pressure 100/66 03/11/24 16:28 Pulse Oximetry 95 03/11/24 16:45 Oxygen Delivery Me thod Nasal Cannula 03/11/24 16:45 Oxygen Flow Rate 4 03/11/24 16:45 MDM - SOB/Dyspnea Medical Decision Making Differential diagnosis for patient with shortness of breath includes but is not limited to and based on the above HPI, review of systems and physical exam: Pneumonia. Bronchitis. Asthma or COPD with acute exacerbation. Acute coronary syndrome / [place]. Pulmonary embolism. Anxiety. Congestive heart failure. Viral infections including influenza and Covid-19. Atrial fibrillation. Anxiety. Pleural effusion. Pneumothorax. Orders placed to evaluate differential diagnosis based on the above differential, HPI and physical exam AB.4 with an O2 sat of 96% on 4 to 5 L nasal cannula. EKG: Time 1716. Rate 95. Atrial fibrillation with controlled rate, nonspecific ST wave abnormality, no ectopy, This was reviewed and interpreted by myself the ER physician at 1720. Chest x-ray: Stable small pleural effusions. No acute process. No infiltrate. No pneumothorax. This was reviewed and interpreted by myself the emergency room physician. I also reviewed the radiology report. Lab Review: Laboratory results were reviewed and interpreted by myself the emergency room physician. No leukocytosis. Patient has some worsening anemia with a hemoglobin of 7. BUN and creatinine are stable at 42 and 1.4. I reviewed the patient's medical record. Reexamination: Patient seems a little bit more alert but becomes quite agitated at times pulling off his oxygen etc. Blood pressure has been a little low. Heart rates been little high. He is right on the cusp of transfusion but given symptoms, increased hypoxemia low blood pressure etc. I am transfusing a unit of blood. Consultation: I spoke with Dr. Hobbs who is on-call for the hospitalist service. She is familiar with this patient as she [facility] him to the [facility] about 8 days ago. She recommends CT of the chest and a CT of the pelvis. CT of the chest for his worsening hypoxemia. CT of the pelvis because he had had a bleed in his hip and pelvis after recent surgery. Assessment and plan: Acute on chronic hypoxemic respiratory failure Anemia Encephalopathy ?IV Solu-Medrol, updrafts, 1 unit PRBCs ordered. ?Haldol for agitation. -I discussed the patient with the hospitalist on-call who is admitting the patient. - Discussed findings and plan with patient. Answered any questions. - All laboratory values were reviewed and interpreted personally by myself, the ER physician - All imaging was reviewed and interpreted personally by myself, the ER physician. - Evaluation and treatment of this problem were appropriate in the emergency setting Critical care -I spent a total of >35 minutes of critical care time managing the patient, independent of any other practitioner. -The time involved in the performance of separately reportable procedures was not counted towards critical care time. Lab Data 03/11/24 16:48 03/11/24 16:48 Labs/Radiology: Radiology Impressions Chest X-Ray 03/11/24 16:30 IMPRESSION: 1. No radiographically apparent acute cardiopulmonary disease. Previously seen small pleural effusions and lung base atelectasis or consolidation on recent CT exams are not well confirmed on this portable radiograph. This may require repeat CT if clinically warranted for follow-up. Laboratory Results WBC 9.72 10^3/uL (3.29-11.43) 03/11/24 16:48 RBC 2.23 10^6/uL (3.85-5.65) L 03/11/24 16:48 Hgb 7.00 g/dL (11.27-16.99) L 03/11/24 16:48 Hct 22.3 % (37-53) L 03/11/24 16:48 MCV 100.0 fl (82-101) 03/11/24 16:48 MCH 31.4 pg (27-33) 03/11/24 16:48 MCHC 31.4 g/dL (30-55) 03/11/24 16:48 RDW 19.4 % (12.1-15.1) H 03/11/24 16:48 Plt Count 224 10^3/cmm (157-399) 03/11/24 16:48 MPV 8.9 fL (7.4-10.4) 03/11/24 16:48 Neut % (Auto) 93.2 % 03/11/24 16:48 Lymph % (Auto) 1.6 % 03/11/24 16:48 [place] % (Auto) 4.7 % 03/11/24 16:48 Eos % (Auto) 0.0 % 03/11/24 16:48 Baso % (Auto) 0.1 % 03/11/24 16:48 Neut # (Auto) 9.05 10^3/uL (1.8-7.7) H 03/11/24 16:48 Lymph # (Auto) 0.2 10^3/uL (0.8-4.8) L 03/11/24 16:48 [place] # (Auto) 0.5 10^3/uL (0.2-0.9) 03/11/24 16:48 Eos # (Auto) 0.0 10^3/uL (0.0-0.8) 03/11/24 16:48 Baso # (Auto) 0.0 10^3/uL (0.0-0.1) 03/11/24 16:48 Nucleated RBC % (auto) 0 % 03/11/24 16:48 Nucleated RBCs # 0.0 /100WBC 03/11/24 16:48 PT 15.10 SECONDS (12.1-14.9) H 03/11/24 16:48 INR 1.16 (0.8-1.2) 03/11/24 16:48 APTT 36.3 SECONDS (23.9-36.7) 03/11/24 16:48 Specimen Type Arterial 03/11/24 16:39 Sample Site Brachial, right 03/11/24 16:39 ABG pH 7.42 (7.35-7.45) 03/11/24 16:39 ABG pCO2 43.4 mmHg (35-45) 03/11/24 16:39 ABG pO2 74.2 mmHg (80.0-100.0) L 03/11/24 16:39 ABG PO2/FiO2 Ratio 206 03/11/24 16:39 ABG HCO3 28.1 mmol/L (22-26) H 03/11/24 16:39 ABG O2 Saturation 96.6 03/11/24 16:39 ABG Base Excess 3.4 mmol/L (-2.0-2.0) H 03/11/24 16:39 Alberto Test N/a 03/11/24 16:39 A-a O2 Gradient 16.8 mmHg (5-10) H 03/11/24 16:39 Hematocrit 16.6 % (42-52) L 03/11/24 16:39 Hgb O2 Saturation 92.7 % (95-100) L 03/11/24 16:39 Carboxyhemoglobin 3.2 %THgb (0.4-20.1) 03/11/24 16:39 Methemoglobin 0.9 % (0.4-1.5) 03/11/24 16:39 Total Hemoglobin 5.4 g/dL (14-18) L 03/11/24 16:39 Sodium 137.0 mmol/L (131-143) 03/11/24 16:39 Potassium 3.8 mmol/L (3.5-5.0) 03/11/24 16:39 Glucose 107.0 mg/dL (70-115) 03/11/24 16:39 Ionized Calcium 1.2 mmol/L (1.1-1.4) 03/11/24 16:39 O2 Delivery Device Nc 03/11/24 16:39 O2 Liters/Min 4.0 % 03/11/24 16:39 FiO2 36.0 % 03/11/24 16:39 Laboratory Manager ID [facility] 03/11/24 16:39 Sodium 136 mmol/L (136-145) 03/11/24 16:48 Potassium 3.9 mmol/L (3.5-5.1) 03/11/24 16:48 Chloride 97 mmol/L (98-107) L 03/11/24 16:48 Carbon Dioxide 28 mmol/L (22-29) 03/11/24 16:48 Anion Gap 14.9 (5-19) 03/11/24 16:48 BUN 42 mg/dL (8-23) H 03/11/24 16:48 Creatinine 1.4 mg/dL (0.7-1.2) H 03/11/24 16:48 GFR Calculation Not Reportable 03/11/24 16:48 Glucose 101 mg/dL (65-115) 03/11/24 16:48 Calculated Osmolality 293 mOsm/kg (285-295) 03/11/24 16:48 Lactic Acid 1.5 mmol/L (0.5-2.2) 03/11/24 16:48 Calcium 8.7 mg/dL (8.5-10.5) 03/11/24 16:48 Total Bilirubin 1.6 mg/dL (0.15-1.2) H 03/11/24 16:48 AST 47 U/L (0-40) H 03/11/24 16:48 ALT 24 U/L (0-41) 03/11/24 16:48 Alkaline Phosphatase 89 U/L (40-130) 03/11/24 16:48 Troponin T Baseline 57 ng/L (0-15) H 03/11/24 16:48 Troponin T 120 Minute 56.44 ng/L (0-15) H 03/11/24 18:06 Delta Troponin T -0.56 ABS# (0-10) L 03/11/24 18:06 NT-Pro-B Natriuret Pep 6750 pg/mL (0-450) H 03/11/24 16:48 Total Protein 5.5 g/dL (6.6-8.7) L 03/11/24 16:48 Albumin 3.4 g/dL (3.5-5.2) L 03/11/24 16:48 Globulin 2.1 g/dL (1.3-4.6) 03/11/24 16:48 Coronavirus (PCR) Negative (Negative) 03/11/24 17:15 Influenza A (PCR) Negative (Negative) 03/11/24 17:15 Influenza Type B (PCR) Negative (Negative) 03/11/24 17:15 RSV (PCR) Negative (Negative) 03/11/24 17:15 Blood Type B Positive 03/11/24 17:03 Rho(D) Type Rh positive 03/11/24 17:03 Antibody Screen Negative 03/11/24 17:03 Crossmatch See Detail 03/11/24 17:03 All radiology interpretation(s) finalized by discharge Discharge Plan Discharge Patient Disposition: Admitted As Inpatient Clinical Impression: Anemia, Encephalopathy, Acute on chronic hypoxic respiratory failure Condition: Stable Coding Level of Care Code ED Commission Broker for Selvin Weston
[2024-03-11] MEDS: ipratropium-albuterol 3 mL Neb INHALATION ×2 (16:40→21:33)
[2024-03-11 16:50] LABS: ABG PCO2 43.4 mmHg (35-45); ABG PH Result 7.42 (7.35-7.45); Arterial Blood Gas Hematocrit 16.6 % (42-52); Base Excess ABG 3.4 mmol/L (-2.0-2.0); Blood Gas Sample Type Arterial; Carboxyhemoglobin 3.2 %THgb (0.4-20.1); HCO3 ABG 28.1 mmol/L (22-26); HGB O2 Sat 92.7 % (95-100); Ionized Calcium Level - ABG 1.2 mmol/L (1.1-1.4); Methemoglobin 0.9 % (0.4-1.5); Oxygen Saturation ABG 96.6; PO2 ABG 74.2 mmHg (80.0-100.0); Potassium Level - ABG 3.8 mmol/L (3.5-5.0); Total Hemoglobin 5.4 g/dL (14-18)
[2024-03-11 16:56] LABS: Basophils % 0.1 %; Hematocrit 22.3 % (37-53); Lymphocytes # 0.2 10^3/uL (0.8-4.8); Lymphocytes % 1.6 %; Mean Corpuscular HGB Conc 31.4 g/dL (30-55); Mean Corpuscular Hemoglobin 31.4 pg (27-33); Mean Platelet Volume 8.9 fL (7.4-10.4); Monocytes # 0.5 10^3/uL (0.2-0.9); Monocytes % 4.7 %; Neutrophils # 9.05 10^3/uL (1.8-7.7); Neutrophils % 93.2 %; Nucleated Red Blood Cells % 0 %; Platelet Count 224 10^3/cmm (157-399); Red Blood Count 2.23 10^6/uL (3.85-5.65); Red Cell Distribution Width 19.4 % (12.1-15.1); White Blood Count 9.72 10^3/uL (3.29-11.43)
[2024-03-11] MEDS: methylPREDNISolone sod succ 125 mg/2 mL INJ IVP (17:08)
[2024-03-11 17:13] LABS: INR 1.16 (0.8-1.2)
[2024-03-11 17:14] LABS: Partial Thromboplastin Time 36.3 SECONDS (23.9-36.7)
[2024-03-11 17:18] LABS: Alanine Aminotransferase 24 U/L (0-41); Albumin Level 3.4 g/dL (3.5-5.2); Alkaline Phosphatase 89 U/L (40-130); Anion Gap 14.9 (5-19); Aspartate Amino Transferase 47 U/L (0-40); Carbon Dioxide 28 mmol/L (22-29); Chloride 97 mmol/L (98-107); Globulin 2.1 g/dL (1.3-4.6); Glucose 101 mg/dL (65-115); Lactic Sepsis W/Reflex 1.5 mmol/L (0.5-2.2); Potassium 3.9 mmol/L (3.5-5.1); Sodium 136 mmol/L (136-145); Total Bilirubin 1.6 mg/dL (0.15-1.2); Total Protein 5.5 g/dL (6.6-8.7)
[2024-03-11 17:20] LABS: Troponin(5th) Baseline 57 ng/L (0-15)
[2024-03-11 17:43] LABS: Blood Urea Nitrogen 42 mg/dL (8-23); Calcium 8.7 mg/dL (8.5-10.5); Creatinine Clr Calc Pharmacy 51.7392; NT Pro B Type Natriuretic Pept 6750 pg/mL (0-450); Osmolality Calculated 293 mOsm/kg (285-295)
[2024-03-11 17:49] LABS: Alveolar-Arterial Oxygen Gradi 16.8 mmHg (5-10); Blood Gas Operator Identificat AMH; Blood Gas Sample Site Brachial, right; Oxygen Device NC; PO2 FiO2 Ratio Arterial Blood 206
[2024-03-11 18:01] LABS: Covid PCR NEGATIVE (Negative); Influenza A NEGATIVE (Negative); Influenza B NEGATIVE (Negative); Respiratory Syncytial Virus Ce NEGATIVE (Negative)
--- NOTE | 2024-03-11 18:05 | CTR_ITS ---
PROCEDURE INFORMATION: Exam: CT Pelvis Without Contrast Exam date and time: 03/11/2024 6:24 PM Age: 73 years old Clinical indication: Mass, lump, or swelling; Prior surgery; Surgery date: <1 month; Surgery type: Left hip orif 02/20/24. Aorto-femoral bypass. Patient HX: Patient has hematoma to left hip. Orif surgery on 02/20/2024. ; Additional info: Anemia hematoma TECHNIQUE: Imaging protocol: Computed tomography of the pelvis without contrast. Radiation optimization: All CT scans at this facility use at least one of these dose optimization techniques: automated exposure control; mA and/or kV adjustment per patient size (includes targeted exams where dose is matched to clinical indication); or iterative reconstruction. COMPARISON: CT pelvis [facility] [id number] 03/02/2024 7:02 PM RADIATION DOSE METRICS: Total DLP (mGy-cm): 1519.9 FINDINGS: Bones/joints: Subacute comminuted displaced intertrochanteric fracture of the proximal left femur status post ORIF with intramedullary lilian in place. The pelvic ring is intact. No evidence of new fracture. Sacrum and coccyx are intact. Moderate-severe spondylosis of the lower lumbar spine with facet arthrosis, osteophytosis and endplate degeneration. Soft tissues: Prominent soft tissue edema of the left hemipelvis and proximal thigh with an approximately 7 cm hematoma posterior to the intertrochanteric region of the proximal femur. Additional intramuscular hemorrhage of the distal iliopsoas and proximal vastus intermedius. No intrapelvic fluid collection or hematoma. Moderate-large rectosigmoid stool burden. Borderline aneurysmal dilatation of the distal abdominal aorta measuring approximately 3.1 cm with extensive vascular calcifications. CT/CT pelvis con [id number] IMPRESSION: 1. Subacute comminuted displaced intertrochanteric fracture of the proximal left femur status post ORIF with development of an approximately 7 cm hematoma posterior to the fracture.
--- NOTE | 2024-03-11 18:06 | CTR_ITS ---
PROCEDURE INFORMATION: Exam: CT Head Without Contrast Exam date and time: 03/11/2024 6:16 PM Age: 73 years old Clinical indication: Altered mental status/memory loss; Patient HX: EMS arrival from home. Patient lethargic with confusion. ; Additional info: Encephalopathy, altered mental status TECHNIQUE: Imaging protocol: Computed tomography of the head without contrast. Radiation optimization: All CT scans at this facility use at least one of these dose optimization techniques: automated exposure control; mA and/or kV adjustment per patient size (includes targeted exams where dose is matched to clinical indication); or iterative reconstruction. COMPARISON: CT head wo con* [id number] 02/18/2024 8:22 PM RADIATION DOSE METRICS: Total DLP (mGy-cm): 1837.38 FINDINGS: Brain: There is patchy hypoattenuation in the periventricular white matter. While nonspecific, this is favored to represent chronic small vessel ischemic change. There is mild cerebral volume loss with associated mild prominence of the CSF spaces. No evidence of acute intracranial hemorrhage. No extra-axial fluid collection. No intracranial mass or mass effect. No midline shift. Cerebral ventricles: The ventricles appear enlarged, in proportion to the mild parenchymal volume loss. Paranasal sinuses: Visualized paranasal sinuses are normally aerated and clear throughout. Mastoid air cells: Visualized mastoid air cells are clear. Nasal cavity: There is rightward deviation of the anterior nasal septum. Li bullosa of the left middle turbinate. Bones: Osseous calvarium appears intact. No fracture is seen. Soft tissues: The visualized superficial soft tissues have a normal appearance. Vasculature: There is calcific atherosclerosis within the cavernous carotids. CT/CT head wo con* [id number]: 1. No CT evidence of acute intracranial pathology. 2. Chronic senescent changes as above.
--- NOTE | 2024-03-11 18:07 | CTR_ITS ---
PROCEDURE INFORMATION: Exam: CT Chest Without Contrast; Diagnostic Exam date and time: 03/11/2024 6:20 PM Age: 73 years old Clinical indication: Shortness of breath; Patient HX: EMS arrival from home. Patient SOB with hypoxia. History of copd, chf, and aaa. ; Additional info: Hypoxemia TECHNIQUE: Imaging protocol: Diagnostic computed tomography of the chest without contrast. Radiation optimization: All CT scans at this facility use at least one of these dose optimization techniques: automated exposure control; mA and/or kV adjustment per patient size (includes targeted exams where dose is matched to clinical indication); or iterative reconstruction. COMPARISON: CT chest wo con [id number] 02/28/2024 2:31 PM RADIATION DOSE METRICS: Total DLP (mGy-cm): 515.82 FINDINGS: Thyroid: Grossly unremarkable. Lungs: No focal consolidation. No pneumothorax. Moderate-severe emphysematous changes. There is left lower lobe volume loss, possibly secondary to mucous plugging. Pleural spaces: No pleural effusion. Heart: No cardiomegaly. No pericardial effusion. Coronary arteries: There are incidental coronary artery calcifications. Mediastinal space: Trachea and airway are grossly patent. No evidence of mediastinal hemorrhage or hematoma. Lymph nodes: No evidence of mediastinal adenopathy. Evaluation for hilar adenopathy is limited by lack of IV contrast. Vasculature: There is aneurysmal dilatation of the ascending thoracic aorta to approximately 4.7 cm, detailed evaluation of which is limited by lack of IV contrast and motion degradation. Evaluation for acute vascular injury or thrombosis is limited by lack of IV contrast. There is tortuosity and ectasia of the descending thoracic aorta. Aneurysmal dilatation of the partially visualized infrarenal abdominal aorta to 4.3 cm. Bones/joints: No evidence of acute fracture or aggressive osseous lesion. Multiple old rib fractures bilaterally. Multilevel chronic compression deformities of the thoracic spine with kyphotic deformity. Severe height loss of T6. Soft tissues: No evidence of fluid collection or hematoma in the superficial soft tissues. Other findings: No evidence of acute abnormality in the upper abdomen. CT/CT chest wo con [id number] IMPRESSION: 1. Left lower lobe volume loss, which may be secondary to mucous plugging. Otherwise no evidence of acute abnormality. 2. Emphysematous changes. The presence of pulmonary emphysema on CT is an independent risk factor for lung cancer. In the absence of a history or active diagnosis of lung cancer, it is recommended that this patient with emphysema be evaluated for enrollment in a low dose CT lung cancer screening program. 3. 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 Consider follow-up vascular evaluatiion.
--- NOTE | 2024-03-11 18:28 | CTR_ITS ---
PROCEDURE INFORMATION: Exam: CT Left Lower Extremity, Thigh Exam date and time: 03/11/2024 6:29 PM Age: 73 years old Clinical indication: Other: Multiple contusions; Prior surgery; Surgery date: <1 month; Surgery type: Left hip orif 02/20/2024. Aortofemoral bypass. Patient HX: Patient has hematoma to left hip with multiple deep contusions to proximal and distal femur. TECHNIQUE: Imaging protocol: CT of the left lower extremity without contrast was performed. Exam focused on the thigh. Radiation optimization: All CT scans at this facility use at least one of these dose optimization techniques: automated exposure control; mA and/or kV adjustment per patient size (includes targeted exams where dose is matched to clinical indication); or iterative reconstruction. COMPARISON: CT angio abd aorta runof [id number] 03/02/2024 7:09 PM RADIATION DOSE METRICS: Total DLP (mGy-cm): 1712.33 FINDINGS: Bones/joints: Subacute comminuted displaced intertrochanteric fracture of the proximal left femur status post intramedullary lilian fixation. Small suprapatellar knee joint effusion. No evidence of new fracture. Fragmented anterior acetabular osteophyte, not significantly changed since December 2020. Soft tissues: Prominent soft tissue edema of the left thigh. There is an approximately 7.5 x 4.4 cm by 5.8 cm hematoma posterior to the proximal femur in the region of the fracture (compared to prior image 420 of series 5 from 03/02/2024 at which time there is no evidence of hematoma). There is intramuscular hemorrhage involving the distal iliopsoas and proximal fibers of the vastus intermedius without discrete hematoma. Soft tissue edema and fascial fluid extends inferiorly. No discrete hematoma of the level of the mid-distal thigh or visualized knee. CT/CT femur LT wo con* [id number] IMPRESSION: 1. Diffuse soft tissue edema with an approximately 7 cm hematoma posterior to the proximal femoral fracture, new since 03/02/2024.
[2024-03-11 18:32] LABS: Troponin 5 2HR 56.44 ng/L (0-15)
[2024-03-11 18:33] LABS: Troponin 5 2HR Delta -0.56 ABS# (0-10)
[2024-03-11] MEDS: haloperidol inj 5 mg/mL INJ 1 mL IVP (18:48)
[2024-03-11] MEDS: doxycycline 100 MG in sodium chloride 0.9% (plus) 100 ML IV (19:18)
[2024-03-11] MEDS: acetaminophen 1,000 MG/100 ML PIGGYBACK 400 MG IV (19:18)
--- NOTE | 2024-03-11 19:55 | P.HP_ITS ---
Providers/Chief Complaint 2 Admitting Physician: Mayda Hobbs MD Primary Care Provider: CARY Dent Chief Complaint: sob History of Present Illness Jamie Davison is a 73 year old male was discharged earlier this month after hip fracture management with intertrochanteric nail postop developed hematoma antiplatelet therapy was continued at the time of discharge when his hemoglobin remained stable he does have chronic bilateral lower extremity edema, wheelchair dependent, DNR/DNI, uses 3 to 4 L of oxygen at baseline, resident of residential presented today for worsening of left hip pain for weakness fatigue lethargy and more agitation. At the time of my evaluation patient is able to tell me his name, date of , stating that he has pain in his left hip, stating that he normally eats regular diet but in the last few days he has not eaten well, he was fidgety, Reaching out to his adult diaper, requested nurse who did bladder scan which were more than 200 mL, I have requested Ashley catheter, patient has akathisia, able to verbally redirect, patient is not endorsing any chest pain, nausea, vomiting, shortness of breath. Currently he is on 4 L nasal cannula, clinically looks extremely dry with lower extremity edema which seems to be chronic. Patient does not have upper teeth, his goals of care were discussed with his medical DPOA who mentioned that she will go with what ever Jamie says, goals of care discussed again, he wants to stay DNR/DNI, this was discussed in front of his ICU nurse Dulce Maria Hemoglobin is 7.0, getting 1 unit PRBC, has CORY, Review of Systems 2 Const: Denies: fever(s) Eyes: Denies: change in vision ENMT: Denies: throat pain Card: Reports: swelling of feet/ankles; Denies: chest pain Resp: Reports: dyspnea Musc: Reports: extremity swelling, muscle cramps and muscle weakness Medications/Allergies Home Medications Medication Instructions Recorded Confirmed Last Taken Type multivitamin 1 tab PO DAILY 90 days #90 tabs 05/01/22 02/19/24 02/18/24 Rx cyanocobalamin (vitamin B-12) 1,000 mcg PO DAILY 30 days #30 caps 08/27/22 02/19/24 02/18/24 Rx 1,000 mcg capsule atorvastatin 40 mg tablet 40 mg PO DAILY 90 days #90 tabs 07/23/23 02/19/24 02/18/24 Rx thiamine mononitrate (vit B1) 100 100 mg PO DAILY #30 tabs 07/27/23 02/19/24 02/18/24 Rx mg tablet (Vitamin B-1 (mononitrate)) albuterol sulfate 90 mcg/actuation 1 puff inhalation Q4H PRN 12/23/23 02/19/24 Unknown Rx aerosol inhaler Shortness Of Breath Or Wheezing #8.5 grams amiodarone 200 mg tablet (Pacerone) 400 mg (2 x 200 mg) PO DAILY #180 12/23/23 02/19/24 02/18/24 Rx tabs aspirin 81 mg tablet,delayed 81 mg PO DAILY 12/23/23 02/19/24 02/18/24 History release (Adult Low Dose Aspirin) ipratropium 0.5 mg-albuterol 3 mg 3 ml inhalation Q6H PRN Shortness 12/23/23 02/19/24 Unknown Rx (2.5 mg base)/3 mL nebulization Of Breath #180 mL soln pantoprazole 40 mg tablet,delayed 40 mg PO DAILY 90 days #180 tabs 12/23/23 02/19/24 02/18/24 Rx release budesonide-formoterol HFA 160 2 puff inhalation BID #10.2 grams 02/08/24 02/19/24 02/18/24 Rx mcg-4.5 mcg/actuation aerosol inhaler (Symbicort) citalopram 20 mg tablet 20 mg PO DAILY 30 days #30 tabs 02/08/24 02/19/24 02/18/24 Rx cyclobenzaprine 5 mg tablet 5 mg PO BID PRN muscle spasm 30 02/08/24 02/19/24 Unknown Rx days #60 tabs buspirone 5 mg tablet 5 mg PO BID 02/19/24 02/19/24 Unknown History clopidogrel 75 mg tablet (Plavix) 75 mg PO DAILY 02/19/24 02/19/24 Unknown History dextromethorphan-guaifenesin 30 1 tab PO Q12H 02/19/24 02/19/24 Unknown History mg-600 mg tablet extended [id number] hr (Mucinex DM) fluticasone propionate 50 1 spray intranasal DAILY 02/19/24 02/19/24 Unknown History mcg/actuation nasal spray,suspension folic acid 1 mg tablet 1 mg PO DAILY 02/19/24 02/19/24 Unknown History furosemide 40 mg tablet (Lasix) 40 mg PO DAILY Edema 02/19/24 02/19/24 02/18/24 History gabapentin 300 mg capsule 300 mg PO QPM 02/19/24 02/19/24 02/17/24 History magnesium L-lactate 84 mg 84 mg PO DAILY 02/19/24 02/19/24 Unknown History tablet,extended release tamsulosin 0.4 mg capsule 0.8 mg PO QPM 02/19/24 02/19/24 02/17/24 History enoxaparin 40 mg/0.4 mL 40 mg (0.4 mL) SUBCUT Q24H 30 days 03/02/24 Unknown Rx subcutaneous syringe #12 mL metoprolol tartrate 25 mg tablet 12.5 mg (1/2 x 25 mg) PO Q12H #60 03/02/24 Unknown Rx tabs multivitamin with folic acid 400 1 tab PO DAILY #30 tabs 03/02/24 Unknown Rx mcg tablet (Thera) polysaccharide iron complex 150 mg 150 mg PO BIDWM #30 caps 03/02/24 Unknown Rx iron capsule (Ferrex) thiamine mononitrate (vit B1) 100 100 mg PO DAILY #30 tabs 03/02/24 Unknown Rx mg tablet (Vitamin B-1 (mononitrate)) Allergies Allergy/AdvReac Type Severity Reaction Status Date / Time bupropion [From Wellbutrin] Allergy Mild ALGY-Hives Verified 02/08/24 09:11 insect venom Allergy ALGY-Swell Verified 02/08/24 09:11 Lip/Tongue/Throat PFSH Acute 2 PFSH: Medical History Alcoholism Hyperkalemia Positive cardiac stress test CAD (coronary artery disease) Afib CHF exacerbation History of spinal fracture Chronic back pain BPH (benign prostatic hyperplasia) Anxiety and depression Bacterial UTI Orthopnea Dyspnea, unspecified Enrolled in chronic care management PLEASE DO NOT REMOVE FROM ACTIVE Generalized weakness Encounter for smoking cessation counseling Alcohol abuse with withdrawal Chronic hypoxic respiratory failure Atrial fibrillation with rapid ventricular response Chronic kidney disease (CKD) COPD (chronic obstructive pulmonary disease) Acute exacerbation of CHF (congestive heart failure) Protein calorie malnutrition Diastolic CHF Chronic anticoagulation Physical deconditioning Vasculopathy CKD (chronic kidney disease) Alcohol abuse Acute kidney injury Alcohol cessation counseling Claudication Environmental and seasonal allergies Venous stasis Arthritis of ankle, left Emphysema lung Abnormality of lung on chest x-ray Encounter for screening for cardiovascular disorders History of abnormal breathing pattern BPH loc w urin obs/LUTS COPD (chronic obstructive pulmonary disease) AAA (abdominal aortic aneurysm) CHF (congestive heart failure) Dyslipidemia PAD (peripheral artery disease) HTN (hypertension) Surgical History Previous back surgery Hx of aorto-femoral bypass Hx of hand surgery Family History Father Hypertension CAD (coronary artery disease) Myocardial infarction Stroke Mother Cancer Denies family history of Diabetes Clotting disorder Dementia Chronic kidney disease (CKD) Suicide Anesthesia complication Bleeding disorder Lung disease Social History Smoking and tobacco/nicotine status: former use of tobacco/nicotine Quit status (tobacco/nicotine): has quit using Year quit tobacco: 2012 Former quit date comment: 1.5-2 ppd X 30 years Alcohol intake: current Alcohol intake frequency: few times a week Substance/Drug Use: never Lives independently: Yes Housing: House Marital status: Current occupational status: retired Vitals/I&O/Wt Last Vital Signs Temp 99.5 F 03/11/24 19:24 Pulse 88 03/11/24 19:54 Resp 24 H 03/11/24 19:54 BP 105/74 03/11/24 19:54 Pulse Ox 98 03/11/24 19:54 O2 Del Method Nasal Cannula 03/11/24 19:24 O2 Flow Rate 5 03/11/24 19:24 03/11/24 03/11/24 03/11/24 06:59 14:59 22:59 Intake Total 100 / 100 Balance 100 / 100 Weight last 48 hrs Weight 80.739 kg Physical Exam 2 Narrative: Patient is very anxious, akathisia Verbally redirectable I do not appreciate any focal deficit Awake and alert AOx3 GCS 15 NIH 0 Clinically dehydrated Retaining urine Abdomen soft S1, S2 variable heart rate around 90s Currently on 4 L nasal cannula No audible stridor or wheezing Data 03/11/24 16:48 03/11/24 16:48 Micro: Microbiology 03/11/24 16:51 Blood Culture - Preliminary Blood SPECIMEN COLLECTED 03/11/24 16:48 Blood Culture - Preliminary Blood SPECIMEN COLLECTED A&P Assessment and plan (1) Akathisia: (2) Anxiety and depression: (3) CHF (congestive heart failure): Qualifiers: Heart failure chronicity: chronic Heart failure type: diastolic Qualified Code(s): I50.32 - Chronic diastolic (congestive) heart failure (4) Afib: Qualifiers: Atrial fibrillation type: paroxysmal Qualified Code(s): I48.0 - Paroxysmal atrial fibrillation (5) Venous stasis: (6) BPH (benign prostatic hyperplasia): Qualifiers: Lower urinary tract symptom presence: symptoms present Lower urinary tract symptom detail: incomplete bladder emptying Qualified Code(s): N40.1 - Benign prostatic hyperplasia with lower urinary tract symptoms; R39.14 - Feeling of incomplete bladder emptying (7) Anemia: (8) Closed fracture of left hip: Qualifiers: Encounter type: initial encounter Qualified Code(s): S72.002A - Fracture of unspecified part of neck of left femur, initial encounter for closed fracture (9) Hematoma: (10) Acute on chronic hypoxic respiratory failure: (11) Generalized weakness: Plan Akathisia Will give 1 dose of benztropine only Patient is already retaining urine Place Ashley catheter patient has history of BPH Patient had resting tremors and rigidity on active movement of extremities I do not see any any antipsychotics and his home meds Patient is afebrile I do not suspect serotonin syndrome, he does take antidepressants Acute on chronic hypoxia COPD exacerbation Left lower lobe mucous plug At baseline uses 3 L currently on 4 L without any respiratory distress or chest pain Possible aspiration Will require speech therapy as well I will keep him on clindamycin Thoracic aortic aneurysm 4.7 cm, infrarenal abdominal aorta 4.3 cm No active sign of hemodynamic compromise Patient not complaining of chest pain or back pain Chronic compression fracture of thoracic area Opioids with bowel regimen Persistent hematoma, drop in hemoglobin avoid DVT prophylaxis and antiplatelet therapy Requested 1 unit PRBC Lower extremity edema Will request Doppler Not a candidate of anticoagulating agent Chronic kidney disease: Creatinine seems around baseline Patient has dry mucous membrane with lower extremity venous's dermatitis and edema I will give him Lasix only after blood transfusion DNR/DNI goals of care discussed with the patient and confirmed with residential records, sister also wants what Jamie is stating at this point As per day sister and patient he has been eating regular diet DVT prophylaxis: SCDs Attestations 2 Medical Necessity Statement*: Anticipating discharge back to the residential within 48 hours Diagnoses Akathisia G25.71 Anxiety and depression F41.9; F32.A Chronic diastolic congestive heart failure I50.32 Heart failure chronicity: chronic Heart failure type: diastolic Paroxysmal atrial fibrillation I48.0 Atrial fibrillation type: paroxysmal Venous stasis I87.8 Benign prostatic hyperplasia with incomplete bladder emptying N40.1; R39.14 Lower urinary tract symptom presence: symptoms present Lower urinary tract symptom detail: incomplete bladder emptying Anemia D64.9 Closed fracture of left hip S72.002A Encounter type: initial encounter Hematoma T14.8XXA Acute on chronic hypoxic respiratory failure J96.21 Generalized weakness R53.1
--- NOTE | 2024-03-11 20:06 | ECG_ITS ---
[facility] Test Date: 2024-03-11 Pat Name: Jamie Davison Department: Room: ICU07 Gender: Male [place]: : 1950 Requested By: Dana Silva Order Number: [id number] Bob MD: Noel Mcclure M.D. Measurements Intervals [place] Rate: 90 P: 0 [place]: 0 QRS: 42 QRSD: 107 T: 1 QT: 396 QTc: 485 Interpretive Statements sinus rhythm with a first-degree AV block and supraventricular ectopic LOW QRS VOLTAGE IN EXTREMITY LEADS [QRS DEFLECTION < 0.5 mV IN LIMB LEADS] MODERATE T-WAVE ABNORMALITY, CONSIDER ANTERIOR ISCHEMIA [-0.1+ mV T-WAVE IN V3/V4] Compared to ECG 03/11/2024 17:16:34 Low QRS voltage now present T-wave abnormality still present Possible ischemia still present Electronically Signed On 03-12-2024 22:41:16 FULL STACK WEB DEVELOPER by Noel Mcclure M.D. [email or web address]
[2024-03-11] MEDS: benztropine 1 mg/mL SDV 2 mL 2 MG IM (20:38)
--- NOTE | 2024-03-11 21:00 | PC.NURSE ---
Addendum entered by Dulce Maria Richey RN 03/12/24 03:42: Additional order received to not administer lasix dose ordered. Original Note: Respiratory status Upon admission, patient's respiratory rate elevated into the 20s with accessory muscle use while on 4LNC. Patient additionally diaphoretic, pale, and moving arms and legs in jerking, non-purposeful movement but able to state name, place, birthday, and situation. Dr. Sharp on unit soon after arrival to observe patient. Order received for 2 mg benztropine IM once and perform a bladder scan. Physician to place order for ativan PRN. Bladder scan performed revealed 272 ml of urine retaining. Physician placed order for avery catheter insertion.
[2024-03-11] MEDS: LORazepam 2 mg/mL INJ 1 mL 0.5 MG IVP (21:27)
--- NOTE | 2024-03-11 21:30 | PC.NURSE ---
Addendum entered by Dulce Maria Richey RN 03/12/24 03:58: Verbal order received for 1:[address] Sharp. Original Note: Agitation At 2130, patient still moving all 4 extremities in a jerking motion while also attempting to climb out of bed and pulling at telemetry wires. Patient's respiratory rate remaining elevated and patient complaining of shortness of breath. RT at bedside for a breathing treatment, nasal cannula increased to 6LNC, and ativan administered per MAY.
[2024-03-11 21:43] LABS: Glucose Point of Care 158 mg/dL (70-110)
[2024-03-11] MEDS: LORazepam 2 mg/mL INJ 1 mL IVP (22:01)
[2024-03-11 22:15] LABS: Arterial Blood Gas Hematocrit 23.1 % (42-52); Base Excess ABG -3.5 mmol/L (-2.0-2.0); Blood Gas Allen Test Pos; Blood Gas Operator Identificat JDB; Blood Gas Sample Site Radial, right; Blood Gas Sample Type Arterial; HCO3 ABG 25.1 mmol/L (22-26); Oxygen Device OXY MASK
[2024-03-11 22:16] LABS: ABG PH Result 7.18 (7.35-7.45)
[2024-03-11 22:17] LABS: ABG PCO2 67.9 mmHg (35-45)
[2024-03-11 22:30] LABS: Alcohol Level < 10 mg/dL (0-10)
--- NOTE | 2024-03-11 22:40 | PC.NURSE ---
Addendum entered by Dulce Maria Richey RN 03/12/24 03:43: Patient's respiratory rate still elevated at this time with accessory muscle use noted. Oxymask at 15 LNC placed on patient. Original Note: Neurological status At 2137 following 0.5 mg ativan dose, patient unable to follow commands nor speak, bilateral legs and arms still moving in a non-purposeful jerking movement, and left eyelid noted to be drooping. Blood glucose 158. Dr. Sharp at bedside; orders received to administer 2 mg ativan IVP once, obtain an ABG and to stop the blood transfusion.
[2024-03-11 22:49] LABS: Bacteria Urine None Seen /hpf; Hyaline Casts Urine 4.52 /lpf; RBC Urine 0-2 /hpf (0-2); Squamous Epithelial Cell Urine 0-5 /hpf (0-5); WBC Urine 0-5 /hpf (0-5)
--- NOTE | 2024-03-11 22:55 | ECG_ITS ---
[facility]: 2024-03-11 Pat Name: Jamie Davison Department: Room: ICU07 Gender: Male [employer]ator: : 1950 Requested By: Dana Silva Order Number: [id number] Bob MD: Noel Mcclure M.D. Measurements Intervals [place] Rate: 80 P: 0 [place]: 0 QRS: -3 QRSD: 103 T: 27 QT: 424 QTc: 489 Interpretive Statements multifocal atrial rhythm MODERATE T-WAVE ABNORMALITY, CONSIDER ANTERIOR ISCHEMIA [-0.1+ mV T-WAVE IN V3/V4] Compared to ECG 03/11/2024 20:06:15 No significant changes Electronically Signed On 03-12-2024 22:41:39 GUEST HOUSE MANAGER by Noel Mcclure M.D. [email or web address]
[2024-03-11 22:56] LABS: Add Urine Microscopic? YES; Bilirubin Urine Negative (Negative); Blood Urine Negative (Negative); Glucose Urine UA Negative (Normal); Ketones Urine Negative (Negative); Leukocyte Esterase Urine Negative (Negative); Nitrate Urine Negative (Negative); Protein Urine Trace (Negative); Specific Gravity, Urine 1.017 (1.005-1.030); Urine Appearance Clear (CLEAR); Urine Color Yellow (Yellow)
[2024-03-11 23:13] LABS: Amphetamines Screen Urine Negative (Negative); Barbiturates Screen Urine Negative (Negative); Benzodiazepines Screen Urine Negative (Negative); Cocaine Screen Urine Negative (Negative); Opiate Screen Urine Positive (Negative); PCP Screen Urine Negative (Negative); THC Screen Urine Negative (Negative)
[2024-03-12] VITALS (108 sets, daily range): BP systolic 97–152; BP diastolic 63–101; PULSE 70–132; RESP 14–36; TEMP 36.1–36.7; O2SAT 89–100; BMI 23.6
--- NOTE | 2024-03-12 | PC.NURSE ---
Blood Dr. Sharp notified of blood infusion expiration time; order received to continue infusion until .
[2024-03-12 03:28] LABS: ABG PCO2 45.3 mmHg (35-45); ABG PH Result 7.41 (7.35-7.45); Arterial Blood Gas Hematocrit 22.1 % (42-52); Base Excess ABG 3.5 mmol/L (-2.0-2.0); Blood Gas Operator Identificat JDB; Blood Gas Sample Site Brachial, right; Blood Gas Sample Type Arterial; HCO3 ABG 28.6 mmol/L (22-26); Oxygen Device BIPAP; PO2 FiO2 Ratio Arterial Blood 312
[2024-03-12 05:31] LABS: Basophils % 0.1 %; Hematocrit 23.4 % (37-53); Lymphocytes # 0.1 10^3/uL (0.8-4.8); Lymphocytes % 1.1 %; Mean Corpuscular HGB Conc 30.3 g/dL (30-55); Mean Corpuscular Hemoglobin 30.2 pg (27-33); Mean Corpuscular Volume 99.6 fl (82-101); Mean Platelet Volume 9.3 fL (7.4-10.4); Monocytes # 0.2 10^3/uL (0.2-0.9); Monocytes % 1.8 %; Neutrophils # 7.83 10^3/uL (1.8-7.7); Neutrophils % 96.5 %; Nucleated Red Blood Cells % 0.2 %; Platelet Count 222 10^3/cmm (157-399); Red Blood Count 2.35 10^6/uL (3.85-5.65); Red Cell Distribution Width 19.7 % (12.1-15.1); White Blood Count 8.12 10^3/uL (3.29-11.43)
[2024-03-12 05:52] LABS: Blood Urea Nitrogen 43 mg/dL (8-23); C Reactive Protein 61.1 mg/L (0.0-4.9); Calcium 8.4 mg/dL (8.5-10.5); Carbon Dioxide 26 mmol/L (22-29); Chloride 102 mmol/L (98-107); Creatinine Clr Calc Pharmacy 51.8065; Glucose 138 mg/dL (65-115); Magnesium 1.9 mg/dL (1.7-2.3); Osmolality Calculated 303 mOsm/kg (285-295); Phosphorus 4.3 mg/dL (2.5-4.5); Sodium 140 mmol/L (136-145)
--- NOTE | 2024-03-12 06:14 | P.PN_ITS ---
Subjective 2 Subjective: seen this am pt s/p 1 unit prbc hb 7.10 this morning, at admission 7.0 nurses noted seizure like activity Vitals/I&O/Wt Last Vital Signs Temp 97.6 F 03/12/24 04:30 Pulse 74 03/12/24 05:59 Resp 18 03/12/24 05:45 BP 122/77 03/12/24 05:45 Pulse Ox 100 03/12/24 05:45 O2 Del Method BiPAP 03/12/24 05:45 O2 Flow Rate 15 03/11/24 22:15 FiO2 40 03/12/24 05:45 03/11/24 03/11/24 03/12/24 14:59 22:59 06:59 Intake Total 258 / 258 61 / 319 Output Total 630 / 630 Balance 258 / 258 -569 / -311 Weight last 48 hrs Weight 81 kg Weight 81 kg Weight 80.739 kg Physical Exam 2 Narrative: on bipap, not following commands Abdomen soft S1, S2 variable heart rate around 90s currently on bipap No audible stridor or wheezing lungs ronchi b/l Urinary Catheter Management: Avery: Cath Placed During This Visit: yes Reason for Continuing Indwelling Catheter: Accurate Measurement of Urinary Output in Critically Ill Patients Urinary Catheter Date of Insertion: 03/11/24 Urinary Catheter Time of Insertion: 22:15 Data 03/12/24 04:44 03/12/24 04:44 Micro: Microbiology 03/11/24 16:51 Blood Culture - Preliminary Blood SPECIMEN COLLECTED 03/11/24 16:48 Blood Culture - Preliminary Blood SPECIMEN COLLECTED A&P Assessment and plan (1) Akathisia: (2) Anxiety and depression: (3) CHF (congestive heart failure): Qualifiers: Heart failure chronicity: chronic Heart failure type: diastolic Qualified Code(s): I50.32 - Chronic diastolic (congestive) heart failure (4) Afib: Qualifiers: Atrial fibrillation type: paroxysmal Qualified Code(s): I48.0 - Paroxysmal atrial fibrillation (5) Venous stasis: (6) BPH (benign prostatic hyperplasia): Qualifiers: Lower urinary tract symptom detail: incomplete bladder emptying Lower urinary tract symptom presence: symptoms present Qualified Code(s): N40.1 - Benign prostatic hyperplasia with lower urinary tract symptoms; R39.14 - Feeling of incomplete bladder emptying (7) Anemia: (8) Closed fracture of left hip: Qualifiers: Encounter type: initial encounter Qualified Code(s): S72.002A - Fracture of unspecified part of neck of left femur, initial encounter for closed fracture (9) Hematoma: (10) Acute on chronic hypoxic respiratory failure: (11) Generalized weakness: Plan Akathisia Will give 1 dose of benztropine only Patient is already retaining urine Place Avery catheter patient has history of BPH Patient had resting tremors and rigidity on active movement of extremities I do not see any any antipsychotics and his home meds Patient is afebrile I do not suspect serotonin syndrome, he does take antidepressants Acute on chronic hypoxia COPD exacerbation Left lower lobe mucous plug At baseline uses 3 L currently on 4 L without any respiratory distress or chest pain Possible aspiration Will require speech therapy as well I will keep him on clindamycin Thoracic aortic aneurysm 4.7 cm, infrarenal abdominal aorta 4.3 cm No active sign of hemodynamic compromise Patient not complaining of chest pain or back pain Chronic compression fracture of thoracic area Opioids with bowel regimen Persistent hematoma, drop in hemoglobin avoid DVT prophylaxis and antiplatelet therapy Requested 1 unit PRBC Lower extremity edema Will request Doppler Not a candidate of anticoagulating agent Chronic kidney disease: Creatinine seems around baseline Patient has dry mucous membrane with lower extremity venous's dermatitis and edema I will give him Lasix only after blood transfusion DNR/DNI goals of care discussed with the patient and confirmed with long term records, sister also wants what Jamie is stating at this point As per day sister and patient he has been eating regular diet DVT prophylaxis: SCDs 03/12/2024 - continue to hold home plavix and avoid dvt ppx pharmacologically. hold home aspirin as well. - continue bipap as needed - new 7cm hematoma by surgical site. Will consult Dr. Varela - order 2 more units prbc, recheck cbc at 6 pm - may have lasix 40 IV x1 after blood transfusion incase of TACO - possible aspiration, continue on zosyn given recent hospitalization and NH stay - continue avery catheter - order txa x1 - pt loaded with keppra this am, start keppra 500 mg bid - discussed with dr. varela. - check cpk, prolactin, and lactic acid Attestations 2 Medical Necessity Statement*: continue to hospitalize for above issues. Diagnoses Akathisia G25.71 Anxiety and depression F41.9; F32.A Chronic diastolic congestive heart failure I50.32 Heart failure chronicity: chronic Heart failure type: diastolic Paroxysmal atrial fibrillation I48.0 Atrial fibrillation type: paroxysmal Venous stasis I87.8 Benign prostatic hyperplasia with incomplete bladder emptying N40.1; R39.14 Lower urinary tract symptom detail: incomplete bladder emptying Lower urinary tract symptom presence: symptoms present Anemia D64.9 Closed fracture of left hip S72.002A Encounter type: initial encounter Hematoma T14.8XXA Acute on chronic hypoxic respiratory failure J96.21 Generalized weakness R53.1
[2024-03-12] MEDS: levETIRAcetam 1,500 MG/100 ML PREMIX 400 MG IV (06:34)
[2024-03-12] MEDS: piperacillin-tazobactam 3.375 GM in sodium chloride 0.9% (plus) 50 ML IV ×3 (06:56→21:45)
[2024-03-12] MEDS: tranexamic acid 1,000 MG/100 ML PREMIX 600 MG IV (06:56)
--- NOTE | 2024-03-12 07:00 | PC.NURSE ---
Keppra Patient's arms and legs noted to be jerking in rhythmic seizure like activity for approximately 2 minutes. Previous verbal order received from Dr. Sharp to administer 1500 mg keppra IV once if seizure like activity occurred. Keppra administered. Dr. Hobbs notified of activity and keppra administration. Order received to start 500 mg keppra IV BID, first dose to start at 12 today.
--- NOTE | 2024-03-12 07:19 | PC.NURSE ---
Stepan Hobbs on unit; verbal order received for 2 mg ativan IVP once now.
[2024-03-12 07:56] LABS: Creatine Phosphokinase 124 U/L (39-308)
[2024-03-12 08:03] LABS: Procalcitonin 0.34 ng/mL (0-0.5)
[2024-03-12 08:11] LABS: Lactate (Lactic Acid level) 1.1 mmol/L (0.5-2.2)
[2024-03-12] MEDS: pantoprazole 40 mg SDV IVP ×2 (08:50→17:48)
--- NOTE | 2024-03-12 09:24 | PC.PHAR ---
Pt intubated and unable to verify own medications.
--- NOTE | 2024-03-12 10:39 | P.CONIM_ITS ---
Providers/Reason For Consult 2 Consulting Physician/Specialty*: Baljinder Varela DO/orthopedic surgery Reason for Consult*: Status post left hip trochanteric femur nail Requesting Physician: Dr. Hobbs Attending Physician: Mayda Hobbs MD Primary Care Provider: CARY Dent History of Present Illness History of Present Illness Jamie Davison is a 73 year old male who underwent a left hip trochanteric femur nail on 02/20/2024. Patient hospitalization was discharged on 03/02/2024 patient's hemoglobin was monitored did require units of PRBC. Was stabilized and subsequently discharged on 03/02/2024. He subsequently was brought in the emergency department from retirement on 03/11/2024 with chief complaint of shortness of breath. Patient subsequently was admitted hemoglobin 7.0 was getting 1 unit of PRBC and has CORY per hospitalist team. He is admitted at ICU orthopedics was consulted as we had recently done his surgery he still has not followed up in the outpatient setting plan for evaluation they did perform a CT scan which shows a postoperative hematoma. Orthopedics consulted for evaluation and treatment recommendations. Review of Systems 2 General: Reports: ROS unobtainable due to medical condition (Unable to spine currently on BiPAP) Medications/Allergies Home Medications Medication Instructions Recorded Confirmed Last Taken Type cyanocobalamin (vitamin B-12) 1,000 mcg PO DAILY 30 days #30 caps 08/27/22 03/12/24 02/18/24 Rx 1,000 mcg capsule atorvastatin 40 mg tablet 40 mg PO DAILY 90 days #90 tabs 07/23/23 03/12/24 02/18/24 Rx albuterol sulfate 90 mcg/actuation 1 puff inhalation Q4H PRN 12/23/23 03/12/24 Unknown Rx aerosol inhaler Shortness Of Breath Or Wheezing #8.5 grams amiodarone 200 mg tablet (Pacerone) 400 mg (2 x 200 mg) PO DAILY #180 12/23/23 03/12/24 02/18/24 Rx tabs aspirin 81 mg tablet,delayed 81 mg PO DAILY 12/23/23 03/12/24 02/18/24 History release (Adult Low Dose Aspirin) ipratropium 0.5 mg-albuterol 3 mg 3 ml inhalation Q6H PRN Shortness 12/23/23 03/12/24 Unknown Rx (2.5 mg base)/3 mL nebulization Of Breath #180 mL soln pantoprazole 40 mg tablet,delayed 40 mg PO DAILY 90 days #180 tabs 12/23/23 03/12/24 02/18/24 Rx release budesonide-formoterol HFA 160 2 puff inhalation BID #10.2 grams 02/08/24 03/12/24 02/18/24 Rx mcg-4.5 mcg/actuation aerosol inhaler (Symbicort) citalopram 20 mg tablet 20 mg PO DAILY 30 days #30 tabs 02/08/24 03/12/24 02/18/24 Rx cyclobenzaprine 5 mg tablet 5 mg PO BID PRN muscle spasm 30 02/08/24 03/12/24 Unknown Rx days #60 tabs buspirone 5 mg tablet 5 mg PO BID 02/19/24 03/12/24 Unknown History clopidogrel 75 mg tablet (Plavix) 75 mg PO DAILY 02/19/24 03/12/24 Unknown History dextromethorphan-guaifenesin 30 1 tab PO Q12H PRN Congestion 02/19/24 03/12/24 Unknown History mg-600 mg tablet extended hr (Mucinex DM) fluticasone propionate 50 1 spray intranasal DAILY 02/19/24 03/12/24 Unknown History mcg/actuation nasal spray,suspension furosemide 40 mg tablet (Lasix) 40 mg PO DAILY PRN Edema 02/19/24 03/12/24 02/18/24 History gabapentin 300 mg capsule 300 mg PO QPM 02/19/24 03/12/24 02/17/24 History magnesium L-lactate 84 mg 84 mg PO DAILY 02/19/24 03/12/24 Unknown History tablet,extended release tamsulosin 0.4 mg capsule 0.8 mg PO QPM 02/19/24 03/12/24 02/17/24 History enoxaparin 40 mg/0.4 mL 40 mg (0.4 mL) SUBCUT Q24H 30 days 03/02/24 03/12/24 Unknown Rx subcutaneous syringe #12 mL metoprolol tartrate 25 mg tablet 12.5 mg (1/2 x 25 mg) PO Q12H #60 03/02/24 03/12/24 Unknown Rx tabs multivitamin with folic acid 400 1 tab PO DAILY #30 tabs 03/02/24 03/12/24 Unknown Rx mcg tablet (Thera) polysaccharide iron complex 150 mg 150 mg PO BIDWM #30 caps 03/02/24 03/12/24 Unknown Rx iron capsule (Ferrex) thiamine mononitrate (vit B1) 100 100 mg PO DAILY #30 tabs 03/02/24 03/12/24 Unknown Rx mg tablet (Vitamin B-1 (mononitrate)) Allergies Allergy/AdvReac Type Severity Reaction Status Date / Time bupropion [From Wellbutrin] Allergy Mild ALGY-Hives Verified 02/08/24 09:11 insect venom Allergy ALGY-Swell Verified 02/08/24 09:11 Lip/Tongue/Throat Current Medications Generic Name Dose Route Start Last Admin Trade Name Freq PRN Reason Stop Dose Admin Albuterol/Ipratropium 3 ml 03/11/24 19:58 03/11/24 21:33 Ipratropium-Albuterol 3 Ml Neb INHALATION 3 ml Q6H PRN Administration SHORTNESS OF BREATH Clindamycin HCl 600 mg 03/11/24 21:15 03/12/24 05:49 Clindamycin 150 Mg Capsule PO Not Given Q8H JONAS Protocol Piperacillin Sod/Tazobactam 50 mls @ 12.5 mls/hr 03/12/24 06:45 03/12/24 06:56 Sod 3.375 gm/ Sodium Chloride IV 12.5 mls/hr Q8H OJNAS Administration Protocol Lorazepam 0.5 mg 03/11/24 21:09 03/11/24 21:27 Lorazepam 2 Mg/Ml Inj 1 Ml IVP 0.5 mg Q8H PRN Administration ANXIETY Pantoprazole Sodium 40 mg 03/12/24 09:00 03/12/24 08:50 Pantoprazole 40 Mg Sdv IVP 40 mg BID JONAS Administration Senna/Docusate Sodium 1 tab 03/12/24 09:00 03/12/24 08:51 Sennosides-Docusate Tablet PO Not Given DAILY JONAS Thiamine HCl 100 mg 03/12/24 09:00 03/12/24 08:50 Thiamine 100 Mg/Ml Sdv IVP 100 mg DAILY JONAS Administration PFSH Acute 2 PFSH: Medical History Alcoholism Hyperkalemia Positive cardiac stress test CAD (coronary artery disease) Afib CHF exacerbation History of spinal fracture Chronic back pain BPH (benign prostatic hyperplasia) Anxiety and depression Bacterial UTI Orthopnea Dyspnea, unspecified Enrolled in chronic care management PLEASE DO NOT REMOVE FROM ACTIVE Generalized weakness Encounter for smoking cessation counseling Alcohol abuse with withdrawal Chronic hypoxic respiratory failure Atrial fibrillation with rapid ventricular response Chronic kidney disease (CKD) COPD (chronic obstructive pulmonary disease) Acute exacerbation of CHF (congestive heart failure) Protein calorie malnutrition Diastolic CHF Chronic anticoagulation Physical deconditioning Vasculopathy CKD (chronic kidney disease) Alcohol abuse Acute kidney injury Alcohol cessation counseling Claudication Environmental and seasonal allergies Venous stasis Arthritis of ankle, left Emphysema lung Abnormality of lung on chest x-ray Encounter for screening for cardiovascular disorders History of abnormal breathing pattern BPH loc w urin obs/LUTS COPD (chronic obstructive pulmonary disease) AAA (abdominal aortic aneurysm) CHF (congestive heart failure) Dyslipidemia PAD (peripheral artery disease) HTN (hypertension) Surgical History Previous back surgery Hx of aorto-femoral bypass Hx of hand surgery Family History Father Hypertension CAD (coronary artery disease) Myocardial infarction Stroke Mother Cancer Denies family history of Diabetes Clotting disorder Dementia Chronic kidney disease (CKD) Suicide Anesthesia complication Bleeding disorder Lung disease Social History Smoking and tobacco/nicotine status: former use of tobacco/nicotine Quit status (tobacco/nicotine): has quit using Year quit tobacco: 2012 Former quit date comment: 1.5-2 ppd X 30 years Alcohol intake: current Alcohol intake frequency: few times a week Substance/Drug Use: never Lives independently: Yes Housing: House Marital status: Current occupational status: retired Vitals/I&O/Wt Last Vital Signs Temp 97.8 F 03/12/24 09:05 Pulse 75 03/12/24 09:05 Resp 19 H 03/12/24 09:05 BP 110/70 03/12/24 09:05 Pulse Ox 99 03/12/24 09:05 O2 Del Method BiPAP 03/12/24 05:45 O2 Flow Rate 15 03/11/24 22:15 FiO2 30 03/12/24 07:44 03/11/24 03/12/24 03/12/24 22:59 06:59 14:59 Intake Total 258 / 258 61 / 319 200 / 200 Output Total 630 / 630 Balance 258 / 258 -569 / -311 200 / 200 Weight last 48 hrs Weight 178 lb 9.191 oz Weight 178 lb 9.191 oz Weight 178 lb Physical Exam 2 Narrative: Examination limited due to patient being on BiPAP. Patient currently has a Silverlon dressing just applied is clean dry and intact no evidence of saturation at this point in time. His left thigh compartments soft and compressible he has normal postoperative ecchymosis and bruising about the posterior aspects of the thigh with some dependent edema appreciated. Rest of his left lower extremity is warm and well-perfused she does have distal pulses are palpable. Unable to assess motor or sensory secondary to patient's being on BiPAP. Unable to perform a full secondary survey examination with patient being unable to respond for examination. No erythema or signs of infection around the dressing at this time. Urinary Catheter Management: Ashley: Cath Placed During This Visit: yes Reason for Continuing Indwelling Catheter: Accurate Measurement of Urinary Output in Critically Ill Patients Urinary Catheter Date of Insertion: 03/11/24 Urinary Catheter Time of Insertion: 22:15 Data 03/12/24 04:44 03/12/24 04:44 Micro: Microbiology 03/11/24 16:51 Blood Culture - Preliminary Blood SPECIMEN COLLECTED 03/11/24 16:48 Blood Culture - Preliminary Blood SPECIMEN COLLECTED Other CT: Radiologist's impression: Ordering Provider/Ordering MD: Dana Gonzalez MD Date of Service: 03/11/24 Procedure(s): CT femur LT wo con* [id number] Accession Number(s): [id number] Report Number: [id number] PROCEDURE INFORMATION: Exam: CT Left Lower Extremity, Thigh Exam date and time: 03/11/2024 6:29 PM Age: 73 years old Clinical indication: Other: Multiple contusions; Prior surgery; Surgery date: <1 month; Surgery type: Left hip orif 02/20/2024. Aortofemoral bypass. Patient HX: Patient has hematoma to left hip with multiple deep contusions to proximal and distal femur. TECHNIQUE: Imaging protocol: CT of the left lower extremity without contrast was performed. Exam focused on the thigh. Radiation optimization: All CT scans at this facility use at least one of these dose optimization techniques: automated exposure control; mA and/or kV adjustment per patient size (includes targeted exams where dose is matched to clinical indication); or iterative reconstruction. COMPARISON: CT angio abd aorta runof [id number] 03/02/2024 7:09 PM RADIATION DOSE METRICS: Total DLP (mGy-cm): 1712.33 FINDINGS: Bones/joints: Subacute comminuted displaced intertrochanteric fracture of the proximal left femur status post intramedullary lilian fixation. Small suprapatellar knee joint effusion. No evidence of new fracture. Fragmented anterior acetabular osteophyte, not significantly changed since December 2020. Soft tissues: Prominent soft tissue edema of the left thigh. There is an approximately 7.5 x 4.4 cm by 5.8 cm hematoma posterior to the proximal femur in the region of the fracture (compared to prior image 420 of series 5 from 03/02/2024 at which time there is no evidence of hematoma). There is intramuscular hemorrhage involving the distal iliopsoas and proximal fibers of the vastus intermedius without discrete hematoma. Soft tissue edema and fascial fluid extends inferiorly. No discrete hematoma of the level of the mid-distal thigh or visualized knee. CT/CT femur LT wo con* [id number] IMPRESSION: 1. Diffuse soft tissue edema with an approximately 7 cm hematoma posterior to the proximal femoral fracture, new since 03/02/2024. Ordering Provider/Ordering MD: Dana Gonzalez MD Date of Service: 03/11/24 Procedure(s): CT pelvis wo con [id number] Accession Number(s): [id number] Report Number: [id number] PROCEDURE INFORMATION: Exam: CT Pelvis Without Contrast Exam date and time: 03/11/2024 6:24 PM Age: 73 years old Clinical indication: Mass, lump, or swelling; Prior surgery; Surgery date: <1 month; Surgery type: Left hip orif 02/20/24. Aorto-femoral bypass. Patient HX: Patient has hematoma to left hip. Orif surgery on 02/20/2024. ; Additional info: Anemia hematoma TECHNIQUE: Imaging protocol: Computed tomography of the pelvis without contrast. Radiation optimization: All CT scans at this facility use at least one of these dose optimization techniques: automated exposure control; mA and/or kV adjustment per patient size (includes targeted exams where dose is matched to clinical indication); or iterative reconstruction. COMPARISON: CT pelvis wo con [id number] 03/02/2024 7:02 PM RADIATION DOSE METRICS: Total DLP (mGy-cm): 1519.9 FINDINGS: Bones/joints: Subacute comminuted displaced intertrochanteric fracture of the proximal left femur status post ORIF with intramedullary lilian in place. The pelvic ring is intact. No evidence of new fracture. Sacrum and coccyx are intact. Moderate-severe spondylosis of the lower lumbar spine with facet arthrosis, osteophytosis and endplate degeneration. Soft tissues: Prominent soft tissue edema of the left hemipelvis and proximal thigh with an approximately 7 cm hematoma posterior to the intertrochanteric region of the proximal femur. Additional intramuscular hemorrhage of the distal iliopsoas and proximal vastus intermedius. No intrapelvic fluid collection or hematoma. Moderate-large rectosigmoid stool burden. Borderline aneurysmal dilatation of the distal abdominal aorta measuring approximately 3.1 cm with extensive vascular calcifications. CT/CT pelvis [facility] [id number] IMPRESSION: 1. Subacute comminuted displaced intertrochanteric fracture of the proximal left femur status post ORIF with development of an approximately 7 cm hematoma posterior to the fracture. Ordering Provider/Ordering MD: Mayda Hobbs MD Date of Service: 03/02/24 Procedure(s): CT angio abd aorta runof [id number] Accession Number(s): [id number] Report Number: [id number] PROCEDURE INFORMATION: Exam: CTA Abdominal Aorta and Bilateral Lower Extremities (Run-off) With Contrast Exam date and time: 03/02/2024 7:09 PM Age: 73 years old Clinical indication: Numbness; Lower extremity; Left; Additional info: Pad TECHNIQUE: Imaging protocol: Computed tomographic angiography of the of the abdominal aorta, pelvis and bilateral lower extremities with contrast. 3D rendering (Not supervised by radiologist): MIP and/or 3D reconstructed images were created by the technologist. Radiation optimization: All CT scans at this facility use at least one of these dose optimization techniques: automated exposure control; mA and/or kV adjustment per patient size (includes targeted exams where dose is matched to clinical indication); or iterative reconstruction. Contrast material: OMNI 350; Contrast volume: 100 ml; Contrast route: INTRAVENOUS (IV); COMPARISON: CT angio abd aorta runof [id number] 01/17/2021 10:29 AM RADIATION DOSE METRICS: Total DLP (mGy-cm): 1039.96 FINDINGS: Aorta: Diffuse calcifications throughout the aorta. Redemonstrated infrarenal abdominal aortic aneurysm measuring 4.3 x 4.0 cm, previously 3.8 x 3.0 cm on 01/17/2021 but unchanged since 02/18/2024. An additional aneurysmal defect more inferiorly along the aorta measures 3.4 x 3.0 cm, also unchanged since 01/29/2024. An additional aneurysmal defect immediately proximal to the bifurcation measures 3.3 x 2.9 cm. Dilated ascending thoracic aorta measuring up to 4.4 cm in caliber. Celiac trunk and mesenteric arteries: No occlusion or significant stenosis. Renal arteries: No occlusion or significant stenosis. Right iliac arteries: Extensive atherosclerotic calcifications. No occlusion or significant stenosis. Right femoral/popliteal arteries: As before, there is occlusion of the distal right superficial femoral artery likely related to atherosclerotic changes. The popliteal artery also appears occluded. Right infrapopliteal arteries: Reconstitution of the vessels in the lower leg with intermittent stenoses related to atherosclerotic calcifications. Diminished flow throughout the peroneal artery. Left iliac arteries: Extensive atherosclerotic calcifications. No occlusion or significant stenosis. Left femoral/popliteal arteries: No occlusion or significant stenosis. Left infrapopliteal arteries: No occlusion or significant stenosis. Lungs: Partial collapse/consolidation of the left lower lobe. Relaxation atelectasis in the right lower lobe. Pleural spaces: Small bilateral pleural effusions. Coronary arteries: Multivessel coronary artery calcifications. Liver: No mass. Gallbladder and biliary ducts: Unremarkable. No calcified stones. No ductal dilation. Pancreas: Unremarkable. No mass. No ductal dilation. Spleen: Normal. No splenomegaly. Adrenal glands: Normal. No mass. Kidneys and ureters: Similar bilateral renal cysts as well as nonspecific perinephric fat stranding. Subcentimeter hypodensities remain too small to characterize but likely represent additional cysts. Stomach and bowel: Colonic diverticulosis without evidence of acute diverticulitis. Moderate colonic stool. No mucosal thickening or evidence of bowel obstruction. Appendix: No evidence of appendicitis. Urinary bladder: See Intraperitoneal space finding. Reproductive: Scattered penile calcifications again noted. Small bilateral hydroceles. Intraperitoneal space: Mild mesenteric edema is similar to prior. Urinary bladder wall thickening and trabeculation along with multiple diverticula are again seen, similar to prior. Lymph nodes: No lymphadenopathy. Bones/joints: Left femoral intramedullary nail transfixing a comminuted intertrochanteric femur fracture. Hardware appears intact without complication. No dislocation. Advanced multilevel spondylosis throughout the lumbar spine. Soft tissues: Subcutaneous soft tissue edema along the lateral aspect of the left hip as well as circumferentially throughout the thigh in the lower leg on the left. Small ill-defined hematoma in the anterior compartment of the left thigh adjacent to the fracture, better assessed on accompanying CT pelvis reported separately. CT/CT angio abd aorta runof [id number] IMPRESSION: 1. Ongoing occlusion of the right distal superficial femoral artery and popliteal artery. Distal reconstitution of the arteries of the lower leg with multifocal stenoses. Diminished flow throughout the right peroneal artery. Findings are overall similar to 01/17/2021. 2. Patent three-vessel runoff in the left lower extremity. 3. Left intertrochanteric femur fracture status post intramedullary nail placement. Small hematoma in the anterior compartment adjacent to the fracture. Diffuse subcutaneous soft tissue edema throughout the left lower extremity. 4. Multifocal saccular infrarenal abdominal aortic aneurysms appear similar to 02/18/2024 but have increased in size since 01/17/2021. 5. Small bilateral pleural effusions with adjacent relaxation atelectasis. Partial collapse/consolidation of the left lower lobe. Superimposed infection not entirely excluded. 6. Additional ancillary findings as above are similar to prior. A&P Assessment and plan (1) Status post-operative repair of hip fracture: (2) Hematoma: Plan Weight-bear as tolerated left lower extremity PT/OT Daily dressing changes needed Will plan for staple removal tomorrow Previous CTA reviewed no active bleed CT of the femur and pelvis reviewed and demonstrate a hematoma posteriorly consistent and would be expected in a trochanteric femur nail. Would recommend observation at this time Labs reviewed Called and spoke with his Sister Patricia over the phone to update on care At this point time no need for acute orthopedic surgical intervention. He unfortunately once again his hemoglobin is continue to downtrend he has been on blood thinning medications. At this point time these were discontinued per the hospitalist team and would recommend we continue to observe we might need to hold off on these. His hardware does appear to be stable on the CT scan we will obtain just a standard plain film x-ray just to have for postoperative following and monitoring. Plan will be to get his nazia out tomorrow of his incision. I did call and update his Sister Patricia at this point in time reviewing of the CT scan he does have a posterior hematoma collection which is very common in these trochanteric femur nails. The previous CTA shows there was no sign of any expansile bleeding or active bleeding noted this was done on 03/02 at this point in time I feel this is likely a stabilized hematoma and would benefit from just discontinuation of blood thinner medication and continued observation. Further surgery I feel would only potentially cause more problems and normally these hematomas will absorb over time on the road. Orthopedics will continue to follow along. Patient's sister understands and agrees with current plan. All questions answered. Consult Attestations 2 Medical Necessity Statement: Ongoing care status post left hip trochanteric femur nail Coding Level of Care Code Acute Code for Chg Fwd Diagnoses Status post-operative repair of hip fracture Z98.890; Z87.81 Hematoma T14.8XXA
[2024-03-12] MEDS: FUROsemide 10 mg/mL SDV 10mL 40 MG IVP (11:52)
[2024-03-12] MEDS: levETIRAcetam 500 MG/100 ML PREMIX 400 MG IV (11:54)
--- NOTE | 2024-03-12 12:18 | XRR_ITS ---
PROCEDURE INFORMATION: Exam: XR Left Hip Exam date and time: 03/12/2024 4:53 PM Age: 73 years old Clinical indication: Injury or trauma; Fall; Blunt trauma (contusions or hematomas); Left; Prior surgery; Surgery date: <1 month; Surgery type: Lt hip; Additional info: S/P L hip troch nail TECHNIQUE: Imaging protocol: Radiologic exam of the left hip. Views: 2 or 3 views hip with pelvis when performed. COMPARISON: CT pelvis wo con [id number] 03/11/2024 6:24 PM FINDINGS: Bones/joints: Subacute comminuted displaced intertrochanteric fracture of the proximal left femur status post intramedullary lilian fixation. Pelvic ring is grossly intact. Sacrum and coccyx are mostly obscured by bowel gas/stool. No gross evidence of new fracture. Right hip is grossly intact. Soft tissues: Soft tissue edema of the left hip. XR/XR hip LT 2-3V wo/w pel* [id number] IMPRESSION: 1. Subacute comminuted displaced intertrochanteric fracture of the proximal left femur status post ORIF. No convincing evidence of new fracture.
[2024-03-12] MEDS: ipratropium-albuterol 3 mL Neb INHALATION ×3 (13:36→20:20)
[2024-03-12] MEDS: clindamycin 150 mg Capsule 600 MG PO ×2 (13:48→20:20)
[2024-03-12 18:33] LABS: Basophils % 0.1 %; Hematocrit 28.8 % (37-53); Lymphocytes # 0.4 10^3/uL (0.8-4.8); Lymphocytes % 3.6 %; Mean Corpuscular HGB Conc 31.9 g/dL (30-55); Mean Corpuscular Hemoglobin 30.2 pg (27-33); Mean Corpuscular Volume 94.4 fl (82-101); Mean Platelet Volume 9.1 fL (7.4-10.4); Monocytes % 8.4 %; Neutrophils # 10.14 10^3/uL (1.8-7.7); Neutrophils % 87.4 %; Nucleated Red Blood Cells % 0 %; Platelet Count 202 10^3/cmm (157-399); Red Blood Count 3.05 10^6/uL (3.85-5.65); Red Cell Distribution Width 18.6 % (12.1-15.1); White Blood Count 11.61 10^3/uL (3.29-11.43)
--- NOTE | 2024-03-12 18:37 | PC.NURSE ---
Pt rested in bed throughout the shift. He was lethargic this am , occasionally responding to his name only. He started squirming around in the bed, coming around more after first unit of PRBCS infused. He was very pale this am, He pinkened up half way through first unit OF PRBCs. He has had 2 units of PRBCs t otal this sift. He has been switched to hos home a ount of O2 , 3lpm/NC from AVAPS at 30%. He is now alert to self and place. He has had jerky , twitchy movements off and on earlier today, which have slowed down after off AVAPS. They do not resemble seizures. He has smoked a time or two in his confusion. He stated he really wanted a [place], he did not know why because he had quit 12 years ago. His left leg had no changes on the significant bruising. HIs s ister called to check on him, she stated he fell at the [facility] after the hip sx. He has had 1500ml of Clear yellow urine output NO BM noted.
[2024-03-12 20:29] LABS: Glucose Point of Care 116 mg/dL (70-110)
[2024-03-12 20:29] LABS: Glucose Point of Care 105 mg/dL (70-110)
[2024-03-12 20:29] LABS: Glucose Point of Care 316 mg/dL (70-110)
--- NOTE | 2024-03-12 22:33 | PC.NURSE ---
Afib Patient's heart rhythm afib with a HR of 130. Dr. Sharp contacted and orders received to start home doses of 400 mg amiodarone po once daily as well as 12.5 mg metoprolol po q12h.
[2024-03-12] MEDS: metoprolol tartrate 25 mg Tablet 12.5 MG PO (22:42)
[2024-03-13] VITALS (96 sets, daily range): BP systolic 92–152; BP diastolic 63–99; PULSE 71–126; RESP 13–29; TEMP 36.5–36.8; O2SAT 77–100; BMI 23.7
[2024-03-13] MEDS: levETIRAcetam 500 MG/100 ML PREMIX 400 MG IV ×3 (00:16→23:45)
[2024-03-13] MEDS: ipratropium-albuterol 3 mL Neb INHALATION ×6 (00:30→19:56)
[2024-03-13] MEDS: acetaminophen 500 mg Tablet PO ×2 (01:58→22:22)
--- NOTE | 2024-03-13 01:59 | PC.NURSE ---
Pain Patient complaining of generalized moderate pain at a 5 on a 1-10 numerical scale. 500 mg tylenol PO ordered PRN Q4H for fever. Dr. Sharp contacted and order received to change PRN reason to fever as well as pain.
[2024-03-13] MEDS: clindamycin 150 mg Capsule 600 MG PO ×3 (04:39→22:11)
[2024-03-13] MEDS: piperacillin-tazobactam 3.375 GM in sodium chloride 0.9% (plus) 50 ML IV ×3 (06:34→22:27)
[2024-03-13 08:15] LABS: Basophils % 0.1 %; Eosinophils % 0.4 %; Hematocrit 28.5 % (37-53); Lymphocytes # 0.5 10^3/uL (0.8-4.8); Lymphocytes % 4.7 %; Mean Corpuscular HGB Conc 32.3 g/dL (30-55); Mean Corpuscular Hemoglobin 31.3 pg (27-33); Mean Corpuscular Volume 96.9 fl (82-101); Mean Platelet Volume 9.1 fL (7.4-10.4); Monocytes % 9.7 %; Neutrophils # 8.77 10^3/uL (1.8-7.7); Neutrophils % 84.6 %; Nucleated Red Blood Cells % 0 %; Platelet Count 171 10^3/cmm (157-399); Red Blood Count 2.94 10^6/uL (3.85-5.65); Red Cell Distribution Width 19.1 % (12.1-15.1); White Blood Count 10.36 10^3/uL (3.29-11.43)
[2024-03-13 08:38] LABS: Anion Gap 14.6 (5-19); Blood Urea Nitrogen 40 mg/dL (8-23); Calcium 8.3 mg/dL (8.5-10.5); Carbon Dioxide 26 mmol/L (22-29); Chloride 98 mmol/L (98-107); Creatinine Clr Calc Pharmacy 51.9355; Glucose 70 mg/dL (65-115); Magnesium 1.7 mg/dL (1.7-2.3); Osmolality Calculated 288 mOsm/kg (285-295); Potassium 3.6 mmol/L (3.5-5.1); Sodium 135 mmol/L (136-145)
[2024-03-13 08:47] LABS: Thyroid Stimulating Hormone 1.45 uIU/mL (0.27-4.20)
[2024-03-13] MEDS: pantoprazole 40 mg SDV IVP (08:47)
[2024-03-13] MEDS: amiodarone 200 mg Tablet 400 MG PO (08:58)
[2024-03-13] MEDS: sennosides-docusate Tablet 1 TAB PO (08:59)
[2024-03-13] MEDS: FUROsemide 10 mg/mL SDV 10mL 40 MG IVP (08:59)
[2024-03-13] MEDS: metoprolol tartrate 25 mg Tablet 12.5 MG PO ×2 (10:42→22:14)
--- NOTE | 2024-03-13 15:36 | P.PN_ITS ---
Subjective 2 Subjective: Patient is a 73-year-old male that is approximately 3 weeks postop left hip fracture ORIF. Denies any acute events overnight. Patient is doing well and says his pain is very minimal. He was able to get up with therapy today. Vitals/I&O/Wt Last Vital Signs Temp 97.7 F 03/13/24 04:30 Pulse 81 03/13/24 15:08 Resp 18 03/13/24 14:59 BP 124/82 03/13/24 14:45 Pulse Ox 93 03/13/24 14:59 O2 Del Method Nasal Cannula 03/13/24 14:59 O2 Flow Rate 2.5 03/13/24 14:59 FiO2 30 03/12/24 13:15 03/13/24 03/13/24 03/13/24 06:59 14:59 22:59 Intake Total 950 / 2780 50 / 50 Output Total 850 / 2350 Balance 100 / 430 50 / 50 Weight last 48 hrs Weight 179 lb 10.828 oz Weight 178 lb 9.191 oz Weight 178 lb 9.191 oz Weight 178 lb Physical Exam 2 Const: COMMON NORMALS: no acute distress and alert Resp: COMMON NORMALS: normal respiratory effort and No retractions Cardio: COMMON NORMALS: Peripheral pulses 2+ throughout PERIPHERAL PULSES: Peripheral pulses 2+ throughout Extremity: NARRATIVE EXTREMITY EXAM: Left lower extremity?surgical dressing was dry and intact. Viola are intact. No erythema, warmth or purulent drainage seen. No wound dehiscence seen. Mild swelling and ecchymosis noted. Negative logroll test. Patient able to dorsiflex and plantarflex foot. Sensation to foot intact. Pedal pulse 2+. Normal cap refill under 2 seconds. Patient was straight leg raising. Neuro: SENSORIUM/ORIENTATION: Yes alert Skin: GENERAL SKIN EXAM: dry skin Urinary Catheter Management: Ashley: Cath Placed During This Visit: yes Reason for Continuing Indwelling Catheter: Accurate Measurement of Urinary Output in Critically Ill Patients Urinary Catheter Date of Insertion: 03/11/24 Urinary Catheter Time of Insertion: 22:15 Data 03/13/24 07:36 03/13/24 07:36 Micro: Microbiology 03/11/24 16:51 Blood Culture - Preliminary Blood NEGATIVE TO DATE 03/11/24 16:48 Blood Culture - Preliminary Blood NEGATIVE TO DATE A&P Assessment and plan (1) Status post-operative repair of hip fracture: Plan Plan: -Labs and imaging were reviewed -PT/OT -Weight-bear as tolerated on left leg -Surgical dressing was removed and nazia were taken out and Steri-Strips were put on. Patient is stable from an orthopedic standpoint and we are signing off daily care with patient and we will follow-up peripherally as needed. Attestations 2 Medical Necessity Statement*: status post hip fracture repair Coding Level of Care Code Acute Code for Chg Fwd Diagnoses Status post-operative repair of hip fracture Z98.890; Z87.81
--- NOTE | 2024-03-13 20:59 | P.PN_ITS ---
Subjective 2 Subjective: She is overall doing okay. Bothered somewhat by the nazia in his left thigh. He is coughing and producing copious phlegm. Vitals/I&O/Wt Last Vital Signs Temp 97.7 F 03/13/24 04:30 Pulse 82 03/13/24 20:00 Resp 18 03/13/24 20:00 BP 137/83 03/13/24 18:45 Pulse Ox 94 03/13/24 20:00 O2 Del Method Nasal Cannula 03/13/24 20:00 O2 Flow Rate 2 03/13/24 20:00 FiO2 30 03/12/24 13:15 03/13/24 03/13/24 03/13/24 06:59 14:59 22:59 Intake Total 950 / 2780 50 / 50 Output Total 850 / 2350 3100 / 3100 Balance 100 / 430 50 / 50 -3100 / -3050 Weight last 48 hrs Weight 81.5 kg Weight 81 kg Weight 81 kg Physical Exam 2 Narrative: Undergoing breathing treatment. Const: COMMON NORMALS: alert GENERAL APPEARANCE: cooperative O RIENTATION/CONSCIOUSNESS: Yes awake HENMT: COMMON NORMALS: oropharynx normal Neck/C-Spine: COMMON NORMALS: no JVD Resp: COMMON NORMALS: normal respiratory effort and clear to auscultation bilaterally AUSCULTATION: clear to auscultation bilaterally Cardio: COMMON NORMALS: no JVD, regular rhythm, S1 normal heart sound present, S2 normal heart sound present and No murmurs present (Cardio) RHYTHM: regular rhythm HEART SOUNDS: S1 normal heart sound present and S2 normal heart sound present GI: COMMON NORMALS: Normal to inspection, nondistended, normoactive bowel sounds present, Soft to palpation and non-tender PALPATION: Yes Soft to palpation Extremity: COMMON NORMALS: no joint enlargement NARRATIVE EXTREMITY EXAM: Swelling, faint bruising of the left thigh, mild swelling over distal left lower extremity. Neuro: COMMON NORMALS: moves all extremities SENSORIUM/ORIENTATION: Yes alert Skin: COMMON NORMALS: no rashes or lesions noted GENERAL SKIN EXAM: no rashes or lesions noted Urinary Catheter Management: Ashley: Cath Placed During This Visit: yes Reason for Continuing Indwelling Catheter: Accurate Measurement of Urinary Output in Critically Ill Patients Urinary Catheter Date of Insertion: 03/11/24 Urinary Catheter Time of Insertion: 22:15 Data 03/13/24 07:36 03/13/24 07:36 Micro: Microbiology 03/11/24 16:51 Blood Culture - Preliminary Blood NEGATIVE TO DATE 03/11/24 16:48 Blood Culture - Preliminary Blood NEGATIVE TO DATE A&P Assessment and plan (1) Akathisia: (2) Anxiety and depression: (3) CHF (congestive heart failure): Qualifiers: Heart failure chronicity: chronic Heart failure type: diastolic Qualified Code(s): I50.32 - Chronic diastolic (congestive) heart failure (4) Afib: Qualifiers: Atrial fibrillation type: paroxysmal Qualified Code(s): I48.0 - Paroxysmal atrial fibrillation (5) Venous stasis: (6) BPH (benign prostatic hyperplasia): Qualifiers: Lower urinary tract symptom presence: symptoms present Lower urinary tract symptom detail: incomplete bladder emptying Qualified Code(s): N40.1 - Benign prostatic hyperplasia with lower urinary tract symptoms; R39.14 - Feeling of incomplete bladder emptying (7) Anemia: (8) Closed fracture of left hip: Qualifiers: Encounter type: initial encounter Qualified Code(s): S72.002A - Fracture of unspecified part of neck of left femur, initial encounter for closed fracture (9) Hematoma: (10) Acute on chronic hypoxic respiratory failure: (11) Generalized weakness: Plan Akathisia: So far remains awake, alert, responsive, cooperative. Without seizure-like episodes. Does have tremor. Has Ashley catheter in place due to urinary retention with history of BPH. Patient had resting tremors and rigidity on active movement of extremities Possible seizure: Continue Keppra. Without further episodes so far. Resume gabapentin. Buspirone. Acute on chronic hypoxia: With cough, copious sputum production. Continue Zosyn, monitor for risk of cytopenia, C. difficile, breathing treatments, add flutter valve. Add Mucinex. COPD exacerbation Left lower lobe mucous plug At baseline uses 3 L currently on 4 L without any respiratory distress or chest pain Possible aspiration Will require speech therapy as well Stop clindamycin with risk of C. difficile Thoracic aortic aneurysm 4.7 cm, infrarenal abdominal aorta 4.3 cm No active sign of hemodynamic compromise Patient not complaining of chest pain or back pain Chronic compression fracture of thoracic area Opioids with bowel regimen Persistent hematoma, drop in hemoglobin avoid DVT prophylaxis and antiplatelet therapy: Discussed with orthopedic surgery. Repeat blood counts. Withhold anticoagulation. SCDs. Hold citalopram for now. Chronic kidney disease: Creatinine seems around baseline Hypomagnesemia: Replace magnesium. Recheck level. DNR/DNI goals of care discussed with the patient and confirmed with snf records, sister also wants what Jamie is stating at this point As per day sister and patient he has been eating regular diet DVT prophylaxis: SCDs Attestations 2 Medical Necessity Statement*: Continue admission for assessment of management of COPD exacerbation, mucous plugging, possible aspiration pneumonia, possible seizure, left thigh hematoma with acute anemia. and High MDM includes amount and/or complexity of data reviewed/ordered [ resulted lab(s)/test(s), ordered lab(s)/test(s) and other healthcare professional discussion] and described risk of complication, morbidity or mortality of management as documented Diagnoses Akathisia G25.71 Anxiety and depression F41.9; F32.A Chronic diastolic congestive heart failure I50.32 Heart failure chronicity: chronic Heart failure type: diastolic Paroxysmal atrial fibrillation I48.0 Atrial fibrillation type: paroxysmal Venous stasis I87.8 Benign prostatic hyperplasia with incomplete bladder emptying N40.1; R39.14 Lower urinary tract symptom presence: symptoms present Lower urinary tract symptom detail: incomplete bladder emptying Anemia D64.9 Closed fracture of left hip S72.002A Encounter type: initial encounter Hematoma T14.8XXA Acute on chronic hypoxic respiratory failure J96.21 Generalized weakness R53.1
[2024-03-13] MEDS: magnesium sulfate premix 2 GM/50 ML PIGGYBACK IV (22:10)
[2024-03-13] MEDS: guaiFENesin 600 mg Tablet PO (22:14)
[2024-03-14] VITALS (33 sets, daily range): BP systolic 103–151; BP diastolic 62–101; PULSE 57–87; RESP 14–23; TEMP 36.3–36.4; O2SAT 90–100
[2024-03-14] MEDS: ipratropium-albuterol 3 mL Neb INHALATION ×5 (00:08→15:31)
[2024-03-14] MEDS: gabapentin 300 mg Capsule PO ×2 (00:54→17:29)
[2024-03-14] MEDS: BuSPIRONE 10 mg Tablet 5 MG PO ×3 (00:54→17:29)
[2024-03-14 03:32] LABS: Basophils % 0.1 %; Eosinophils # 0.2 10^3/uL (0.0-0.8); Eosinophils % 1.6 %; Lymphocytes # 0.5 10^3/uL (0.8-4.8); Lymphocytes % 4.1 %; Mean Corpuscular HGB Conc 31.9 g/dL (30-55); Mean Corpuscular Hemoglobin 30.3 pg (27-33); Mean Corpuscular Volume 94.8 fl (82-101); Mean Platelet Volume 8.9 fL (7.4-10.4); Monocytes # 1.4 10^3/uL (0.2-0.9); Monocytes % 11.7 %; Nucleated Red Blood Cells % 0 %; Platelet Count 156 10^3/cmm (157-399); Red Blood Count 3.27 10^6/uL (3.85-5.65); Red Cell Distribution Width 18.5 % (12.1-15.1); White Blood Count 11.59 10^3/uL (3.29-11.43)
[2024-03-14 03:59] LABS: Alanine Aminotransferase 108 U/L (0-41); Albumin Level 3.2 g/dL (3.5-5.2); Alkaline Phosphatase 104 U/L (40-130); Anion Gap 11.6 (5-19); Aspartate Amino Transferase 114 U/L (0-40); Blood Urea Nitrogen 34 mg/dL (8-23); Calcium 8.4 mg/dL (8.5-10.5); Carbon Dioxide 31 mmol/L (22-29); Chloride 97 mmol/L (98-107); Creatinine Clr Calc Pharmacy 51.9355; Glucose 78 mg/dL (65-115); Osmolality Calculated 288 mOsm/kg (285-295); Potassium 3.6 mmol/L (3.5-5.1); Sodium 136 mmol/L (136-145); Total Bilirubin 1.6 mg/dL (0.15-1.2); Total Protein 5.2 g/dL (6.6-8.7)
[2024-03-14 04:04] LABS: Magnesium 1.9 mg/dL (1.7-2.3)
[2024-03-14] MEDS: piperacillin-tazobactam 3.375 GM in sodium chloride 0.9% (plus) 50 ML IV ×3 (06:12→22:38)
--- NOTE | 2024-03-14 07:43 | US_ITS ---
WS: [id number] Gallbladder ultrasound, 03/14/2024 Clinical Data: hyperbili, transaminitis Comparison: None. Findings: The gallbladder shows no sludge or stone. The wall measures 0.1 cm with no pericholecystic fluid. The common bile duct is 0.3 cm and there are no intrahepatic ductal abnormalities. Liver shows no cysts, masses or dilated intrahepatic ducts. The echotexture of the liver is normal an d the liver is normal size. The pancreas is obscured by overlying bowel gas but no cyst, pseudocyst, or evidence of pancreatitis is noted. Right kidney measures 9.2 cm and no masses or hydronephrosis can be seen. There is a small right brenna l cortical cyst measuring 1.1 x 1.1 x 1.2 cm. The aorta and inferior vena cava show no vascular abnormalities. US/US gall bladder [id number] Impression: 1. Small right renal cortical cyst. 2. Pancreas obscured by overlying bowel gas.
[2024-03-14 08:43] LABS: Hepatitis A Antibody IgM Non-Reactive (Nonreactive); Hepatitis B Core IgM Non-Reactive (Nonreactive); Hepatitis B Surface Antigen Non-Reactive (Nonreactive); Hepatitis C Virus Antibody Non-Reactive (Nonreactive)
[2024-03-14] MEDS: magnesium sulfate premix 1 GM/100 ML PIGGYBACK IV (09:15)
[2024-03-14] MEDS: guaiFENesin 600 mg Tablet PO ×2 (09:16→17:29)
[2024-03-14] MEDS: sennosides-docusate Tablet 1 TAB PO (09:16)
[2024-03-14] MEDS: amiodarone 200 mg Tablet 400 MG PO (09:16)
[2024-03-14] MEDS: FUROsemide 10 mg/mL SDV 10mL 40 MG IVP (09:16)
[2024-03-14] MEDS: pantoprazole 40 mg SDV IVP ×2 (09:17→17:29)
[2024-03-14] MEDS: acetaminophen 500 mg Tablet PO ×2 (10:37→22:36)
[2024-03-14] MEDS: metoprolol tartrate 25 mg Tablet 12.5 MG PO ×2 (10:37→22:37)
--- NOTE | 2024-03-14 20:10 | P.PN_ITS ---
Subjective 2 Subjective: She denies any additional new symptoms. Some pain at the left thigh surgical wound. [place] have been removed. Vitals/I&O/Wt Last Vital Signs Temp 97.4 F L 03/14/24 16:00 Pulse 67 03/14/24 18:00 Resp 23 H 03/14/24 18:00 BP 120/67 03/14/24 18:00 Pulse Ox 96 03/14/24 18:00 O2 Del Method Nasal Cannula 03/14/24 18:00 O2 Flow Rate 2 03/14/24 18:00 FiO2 30 03/12/24 13:15 03/14/24 03/14/24 03/14/24 06:59 14:59 22:59 Intake Total 200.000 / 600.000 50 / 50 390 / 440 Output Total 1175 / 4275 1100 / 1100 600 / 1700 Balance -975.000 / -3675.000 -1050 / -1050 -210 / -1260 Weight last 48 hrs Weight 79.333 kg Weight 81.5 kg Physical Exam 2 Narrative: Sitting up in a chair. Const: COMMON NORMALS: alert GENERAL APPEARANCE: cooperative O RIENTATION/CONSCIOUSNESS: Yes awake HENMT: COMMON NORMALS: oropharynx normal Neck/C-Spine: COMMON NORMALS: no JVD Resp: COMMON NORMALS: normal respiratory effort and clear to auscultation bilaterally AUSCULTATION: clear to auscultation bilaterally Cardio: COMMON NORMALS: no JVD, regular rhythm, S1 normal heart sound present, S2 normal heart sound present and No murmurs present (Cardio) RHYTHM: regular rhythm HEART SOUNDS: S1 normal heart sound present and S2 normal heart sound present GI: COMMON NORMALS: Normal to inspection, nondistended, normoactive bowel sounds present, Soft to palpation and non-tender PALPATION: Yes Soft to palpation Extremity: COMMON NORMALS: no joint enlargement NARRATIVE EXTREMITY EXAM: Swelling, faint bruising of the left thigh, mild swelling over distal left lower extremity. Neuro: COMMON NORMALS: moves all extremities SENSORIUM/ORIENTATION: Yes alert Skin: COMMON NORMALS: no rashes or lesions noted GENERAL SKIN EXAM: no rashes or lesions noted Urinary Catheter Management: Ashley: Cath Placed During This Visit: yes, but has since been removed by the nurse Reason for Continuing Indwelling Catheter: Decision to DC Catheter Urinary Catheter Date of Insertion: 03/11/24 Urinary Catheter Time of Insertion: 22:15 Date Urinary Catheter Removed: 03/14/24 Time Urinary Catheter Discontinued: 16:33 Data 03/14/24 03:03 03/14/24 03:03 Micro: Microbiology 03/14/24 00:59 Occult Blood (FIT) - Final Stool Routine Collection A&P Assessment and plan (1) Akathisia: (2) Anxiety and depression: (3) CHF (congestive heart failure): Qualifiers: Heart failure chronicity: chronic Heart failure type: diastolic Qualified Code(s): I50.32 - Chronic diastolic (congestive) heart failure (4) Afib: Qualifiers: Atrial fibrillation type: paroxysmal Qualified Code(s): I48.0 - Paroxysmal atrial fibrillation (5) Venous stasis: (6) BPH (benign prostatic hyperplasia): Qualifiers: Lower urinary tract symptom presence: symptoms present Lower urinary tract symptom detail: incomplete bladder emptying Qualified Code(s): N40.1 - Benign prostatic hyperplasia with lower urinary tract symptoms; R39.14 - Feeling of incomplete bladder emptying (7) Anemia: (8) Closed fracture of left hip: Qualifiers: Encounter type: initial encounter Qualified Code(s): S72.002A - Fracture of unspecified part of neck of left femur, initial encounter for closed fracture (9) Hematoma: (10) Acute on chronic hypoxic respiratory failure: (11) Generalized weakness: Plan Akathisia: No seizures. Noted some rigidity in upper extremities. Also noted worsening transaminitis, hyperbilirubinemia. Discussed with him discussed with him discontinuation of Keppra. Stopped. Continue to monitor condition. So far remains awake, alert, responsive, cooperative. Without seizure-like episodes. Does have tremor. Continue seizure precautions. Monitor for any seizure episodes. Discussed with nursing, manager case-obtain PT evaluation. Would benefit from rehabilitation at SNF. Has Ashley catheter in place due to urinary retention with history of BPH. Patient had resting tremors and rigidity on active movement of extremities Transaminitis: Noted worsening transaminitis, AST on review up to 114, ALT 108. On review bilirubin is 1.6, alk phos 104. Normal right upper quadrant pain or tenderness, however, with new worsening will assess ultrasound. Additionally requested hepatitis panel. Discussed with him discontinuing Keppra as he has not had any seizure activity, and he has been on amiodarone previously but Keppra is a new medication. Discussed consideration of discontinuation of amiodarone. Monitor for risk of worsening transaminitis, acute liver failure. Recheck liver parameters. Possible seizure: Stop Keppra. Without further episodes so far. Resume gabapentin. Buspirone. Acute on chronic hypoxia: Overall breathing is improving. With cough, copious sputum production. Continue Zosyn, monitor for risk of cytopenia, C. difficile, breathing treatments, flutter valve. Mucinex. COPD exacerbation Left lower lobe mucous plug At baseline uses 3 L currently on 4 L without any respiratory distress or chest pain Possible aspiration Requesting speech therapy evaluation Stop clindamycin with risk of C. difficile Thoracic aortic aneurysm 4.7 cm, infrarenal abdominal aorta 4.3 cm No active sign of hemodynamic compromise Patient not complaining of chest pain or back pain Chronic compression fracture of thoracic area Opioids with bowel regimen Persistent hematoma, drop in hemoglobin avoid DVT prophylaxis and antiplatelet therapy: Reviewed hemoglobin, maintain hemoglobin 9.9. Reviewed orthopedic note. No additional changes. [place] have been removed from the left thigh. Orthopedics has signed off, following peripherally. Withhold anticoagulation. SCDs. Hold citalopram for now. There is left lower extremity swelling. Obtain duplex ultrasound to assess for any DVT. Chronic kidney disease: Creatinine seems around baseline Hypomagnesemia: Reviewed using. Recheck. DNR/DNI goals of care discussed with the patient and confirmed with [facility] records, sister also wants what Jamie is stating at this point As per day sister and patient he has been eating regular diet DVT prophylaxis: SCDs Attestations 2 Medical Necessity Statement*: Continue admission for assessment of management of COPD exacerbation, mucous plugging, possible aspiration pneumonia, possible seizure, left thigh hematoma with acute anemia. and High MDM includes amount and/or complexity of data reviewed/ordered [ previous or external records, resulted lab(s)/test(s), ordered lab(s)/test(s) and other healthcare professional discussion] and described risk of complication, morbidity or mortality of management as documented Diagnoses Akathisia G25.71 Anxiety and depression F41.9; F32.A Chronic diastolic congestive heart failure I50.32 Heart failure chronicity: chronic Heart failure type: diastolic Paroxysmal atrial fibrillation I48.0 Atrial fibrillation type: paroxysmal Venous stasis I87.8 Benign prostatic hyperplasia with incomplete bladder emptying N40.1; R39.14 Lower urinary tract symptom presence: symptoms present Lower urinary tract symptom detail: incomplete bladder emptying Anemia D64.9 Closed fracture of left hip S72.002A Encounter type: initial encounter Hematoma T14.8XXA Acute on chronic hypoxic respiratory failure J96.21 Generalized weakness R53.1
--- NOTE | 2024-03-14 20:11 | USCV_ITS ---
Jamie Davison Age: 73 Gender: M : 1950 Exam Date: 03/14/2024 21:41 Ordering Phys: Alejo Palmer MD Technologist: YOLIE Exam Location: [facility] [place] Indication: Assess for DVT HISTORY: Assess for DVT Paatient is minimally responsive with restleg leg syndrome in 255-2 PROCEDURES: Venous duplex imaging was performed in only the left lower extremity. The following venous structures were evaluated: common femoral vein, profunda vein, proximal portion of the greater saphenous vein, superficial femoral vein, and the popliteal vein. In addition, the posterior tibial veins were evaluated. Serial compression, augmentation maneuvers, and spectral Doppler flow evaluation were performed, whilch were normal. On the left side, the common femoral, superficial femoral, profunda femoral, popliteal, posterior tibial, and greater saphenous veins were identified and interrogated in the standard fashion. These veins were found to be easily compressible with spontaneous blood flow. No evidence of thrombus noted. CONCLUSIONS No evidence of left lower extremity DVT. Luis A Triplett MD (Electronically Signed) Final Date: 15 March 2024 09:06 S
[2024-03-15] VITALS (14 sets, daily range): BP systolic 118–174; BP diastolic 71–90; PULSE 59–89; RESP 16–18; TEMP 36.4–36.8; O2SAT 91–98; BMI 22.6
[2024-03-15] MEDS: ipratropium-albuterol 3 mL Neb INHALATION ×4 (00:25→20:38)
[2024-03-15 05:42] LABS: Basophils % 0.1 %; Eosinophils # 0.2 10^3/uL (0.0-0.8); Eosinophils % 2.3 %; Hematocrit 33.4 % (37-53); Lymphocytes # 0.5 10^3/uL (0.8-4.8); Lymphocytes % 6.2 %; Mean Corpuscular HGB Conc 31.7 g/dL (30-55); Mean Corpuscular Hemoglobin 31.2 pg (27-33); Mean Corpuscular Volume 98.2 fl (82-101); Mean Platelet Volume 9.3 fL (7.4-10.4); Monocytes % 11.9 %; Neutrophils # 6.65 10^3/uL (1.8-7.7); Neutrophils % 79.1 %; Nucleated Red Blood Cells % 0 %; Platelet Count 134 10^3/cmm (157-399)
[2024-03-15 06:11] LABS: Alanine Aminotransferase 69 U/L (0-41); Alkaline Phosphatase 100 U/L (40-130); Anion Gap 13.4 (5-19); Aspartate Amino Transferase 50 U/L (0-40); Blood Urea Nitrogen 35 mg/dL (8-23); Calcium 8.3 mg/dL (8.5-10.5); Carbon Dioxide 30 mmol/L (22-29); Chloride 98 mmol/L (98-107); Creatinine Clr Calc Pharmacy 64.8523; Globulin 2.2 g/dL (1.3-4.6); Glucose 85 mg/dL (65-115); Magnesium 1.9 mg/dL (1.7-2.3); Osmolality Calculated 293 mOsm/kg (285-295); Potassium 3.4 mmol/L (3.5-5.1); Sodium 138 mmol/L (136-145); Total Bilirubin 1.3 mg/dL (0.15-1.2); Total Protein 5.2 g/dL (6.6-8.7)
[2024-03-15] MEDS: piperacillin-tazobactam 3.375 GM in sodium chloride 0.9% (plus) 50 ML IV ×3 (07:20→22:57)
[2024-03-15] MEDS: amiodarone 200 mg Tablet 400 MG PO (08:26)
[2024-03-15] MEDS: FUROsemide 10 mg/mL SDV 10mL 40 MG IVP (08:26)
[2024-03-15] MEDS: guaiFENesin 600 mg Tablet PO ×2 (08:26→17:07)
[2024-03-15] MEDS: BuSPIRONE 10 mg Tablet 5 MG PO ×2 (08:26→17:07)
[2024-03-15] MEDS: pantoprazole 40 mg SDV IVP ×2 (08:26→17:07)
[2024-03-15] MEDS: sennosides-docusate Tablet 1 TAB PO (08:26)
[2024-03-15] MEDS: potassium chloride ER 20 mEq Tablet PO (09:45)
--- NOTE | 2024-03-15 12:29 | PC.SOCIAL ---
IMM Update pg 2 of IMM Updated and reviewed w/ patient. Copy provided and copy dated, initialed and placed in chart.
--- NOTE | 2024-03-15 15:17 | PC.OT ---
OT EVALUATION ATTMEPTED. PATIENT SLEEPING SOUNDLY. WILL ATTEMPT AGAIN TOMORROW.
[2024-03-15] MEDS: gabapentin 300 mg Capsule PO (17:07)
--- NOTE | 2024-03-15 19:10 | PM.PN ---
Vitals/I&O/Wt Last Vital Signs Temp 97.6 F 03/15/24 15:18 Pulse 83 03/15/24 15:18 Resp 17 03/15/24 15:18 BP 145/81 03/15/24 15:18 Pulse Ox 98 03/15/24 15:18 O2 Del Method Nasal Cannula 03/15/24 15:18 O2 Flow Rate 2 03/15/24 15:18 FiO2 30 03/12/24 13:15 03/15/24 03/15/24 03/15/24 06:59 14:59 22:59 Intake Total 290 / 850 170 / 170 290 / 460 Output Total 600 / 2650 1000 / 1000 Balance -310 / -1800 -830 / -830 290 / -540 Weight last 48 hrs Weight 77.7 kg Weight 79.333 kg Physical Exam Narrative: Sitting up in bed. Const: COMMON NORMALS: alert GENERAL APPEARANCE: cooperative ORIENTATION/CONSCIOUSNESS: Yes awake HENMT: COMMON NORMALS: oropharynx normal Neck/C-Spine: COMMON NORMALS: no JVD Resp: COMMON NORMALS: normal respiratory effort and clear to auscultation bilaterally AUSCULTATION: clear to auscultation bilaterally Cardio: COMMON NORMALS: no JVD, regular rhythm, S1 normal heart sound present, S2 normal heart sound present and No murmurs present (Cardio) RHYTHM: regular rhythm HEART SOUNDS: S1 normal heart sound present and S2 normal heart sound present GI: COMMON NORMALS: Normal to inspection, nondistended, normoactive bowel sounds present, Soft to palpation and non-tender PALPATION: Yes Soft to palpation Extremity: COMMON NORMALS: no joint enlargement NARRATIVE EXTREMITY EXAM: Mod swelling, faint bruising of the left thigh, mild swelling over distal left lower extremity. Neuro: COMMON NORMALS: moves all extremities SENSORIUM/ORIENTATION: Yes alert Skin: COMMON NORMALS: no rashes or lesions noted GENERAL SKIN EXAM: no rashes or lesions noted Urinary Catheter Management: Ashley: Cath Placed During This Visit: yes, but has since been removed by the nurse Reason for Continuing Indwelling Catheter: Decision to DC Catheter Urinary Catheter Date of Insertion: 03/11/24 Urinary Catheter Time of Insertion: 22:15 Date Urinary Catheter Removed: 03/14/24 Time Urinary Catheter Discontinued: 16:33 Data 03/15/24 04:30 03/15/24 04:30 A&P Assessment and plan (1) Akathisia: (2) Anxiety and depression: (3) CHF (congestive heart failure): Qualifiers: Heart failure chronicity: chronic Heart failure type: diastolic Qualified Code(s): I50.32 - Chronic diastolic (congestive) heart failure (4) Afib: Qualifiers: Atrial fibrillation type: paroxysmal Qualified Code(s): I48.0 - Paroxysmal atrial fibrillation (5) Venous stasis: (6) BPH (benign prostatic hyperplasia): Qualifiers: Lower urinary tract symptom presence: symptoms present Lower urinary tract symptom detail: incomplete bladder emptying Qualified Code(s): N40.1 - Benign prostatic hyperplasia with lower urinary tract symptoms; R39.14 - Feeling of incomplete bladder emptying (7) Anemia: (8) Closed fracture of left hip: Qualifiers: Encounter type: initial encounter Qualified Code(s): S72.002A - Fracture of unspecified part of neck of left femur, initial encounter for closed fracture (9) Hematoma: (10) Acute on chronic hypoxic respiratory failure: (11) Generalized weakness: Plan Transaminitis: Reviewed T. bili, AST, LT, alk phos. Reviewed liver ultrasound. Improving transaminitis. Gallbladder without sludge or stone, unremarkable. No pericholecystic fluid. Incidentally noted small right renal cortical cyst. Improved after discontinuation of Keppra. Discussed with him. Repeat CMP. Normal right upper quadrant pain or tenderness, however, with new worsening will assess ultrasound. Additionally requested hepatitis panel. Discussed with him discontinuing Keppra as he has not had any seizure activity, and he has been on amiodarone previously but Keppra is a new medication. Discussed consideration of discontinuation of amiodarone. Monitor for risk of worsening transaminitis, acute liver failure. Recheck liver parameters. Discussed with case managers, nursing. Case management to pursue authorization to return to intermediate to resume rehabilitation. Akathisia: No seizures. Noted some improving rigidity in upper extremities. Also noted worsening transaminitis, hyperbilirubinemia. Discussed with him discussed with him discontinuation of Keppra. Stopped. Continue to monitor condition. So far remains awake, alert, responsive, cooperative. Without seizure-like episodes. Does have tremor. Continue seizure precautions. Monitor for any seizure episodes. Discussed with nursing, case managers-obtain PT evaluation. Would benefit from rehabilitation at [facility]. Has Ashley catheter in place due to urinary retention with history of BPH. Patient had resting tremors and rigidity on active movement of extremities Possible seizure: Stop Keppra. Without further episodes so far. Resumed gabapentin. Buspirone. Acute on chronic hypoxia: Improving COPD exacerbation. Remains on 2 L nasal cannula oxygen. Still coughing with productive cough. Continue Zosyn, monitor for risk of cytopenia, C. difficile, breathing treatments, flutter valve. Mucinex. COPD exacerbation Left lower lobe mucous plug At baseline uses 3 L currently on 4 L without any respiratory distress or chest pain Possible aspiration Reviewed speech therapy documentation/evaluation. Continue soft and bite sized food consistently, mildly thick liquids. Stop clindamycin with risk of C. difficile Thoracic aortic aneurysm 4.7 cm, infrarenal abdominal aorta 4.3 cm No active sign of hemodynamic compromise Patient not complaining of chest pain or back pain Chronic compression fracture of thoracic area Opioids with bowel regimen Persistent hematoma, drop in hemoglobin avoid DVT prophylaxis and antiplatelet therapy: Reviewed hemoglobin, maintain hemoglobin 9.9. Reviewed orthopedic note. No additional changes. Clarence have been removed from the left thigh. Orthopedics has signed off, following peripherally. Withhold anticoagulation. SCDs. Hold citalopram for now. There is left lower extremity swelling. Obtain duplex ultrasound to assess for any DVT. Chronic kidney disease: Creatinine seems around baseline Hypomagnesemia: Reviewed using. Recheck. DNR/DNI goals of care discussed with the patient and confirmed with intermediate records, sister also wants what Jamie is stating at this point As per day sister and patient he has been eating regular diet DVT prophylaxis: SCDs Attestations Medical Necessity Statement*: Continue admission for assessment of management of COPD exacerbation, mucous plugging, possible aspiration pneumonia, possible seizure, left thigh hematoma with acute anemia. and High MDM includes amount and/or complexity of data reviewed/ordered [ previous or external records, resulted lab(s)/test(s), ordered lab(s)/test(s) and other healthcare professional discussion] and described risk of complication, morbidity or mortality of management as documented Diagnoses Akathisia G25.71 Anxiety and depression F41.9; F32.A Chronic diastolic congestive heart failure I50.32 Heart failure chronicity: chronic Heart failure type: diastolic Paroxysmal atrial fibrillation I48.0 Atrial fibrillation type: paroxysmal Venous stasis I87.8 Benign prostatic hyperplasia with incomplete bladder emptying N40.1; R39.14 Lower urinary tract symptom presence: symptoms present Lower urinary tract symptom detail: incomplete bladder emptying Anemia D64.9 Closed fracture of left hip S72.002A Encounter type: initial encounter Hematoma T14.8XXA Acute on chronic hypoxic respiratory failure J96.21 Generalized weakness R53.1
[2024-03-15] MEDS: metoprolol tartrate 25 mg Tablet 12.5 MG PO (22:58)
[2024-03-16] VITALS (10 sets, daily range): BP systolic 117–138; BP diastolic 66–89; PULSE 71–95; RESP 14–20; TEMP 36.6–36.8; O2SAT 93–97
[2024-03-16] MEDS: ipratropium-albuterol 3 mL Neb INHALATION ×4 (02:25→21:14)
[2024-03-16 05:30] LABS: Basophils % 0.2 %; Eosinophils # 0.2 10^3/uL (0.0-0.8); Hematocrit 37.3 % (37-53); Lymphocytes # 0.5 10^3/uL (0.8-4.8); Lymphocytes % 5.6 %; Mean Corpuscular HGB Conc 30.8 g/dL (30-55); Mean Corpuscular Hemoglobin 31.2 pg (27-33); Mean Corpuscular Volume 101.1 fl (82-101); Mean Platelet Volume 9.3 fL (7.4-10.4); Monocytes # 1.1 10^3/uL (0.2-0.9); Monocytes % 10.9 %; Neutrophils # 7.85 10^3/uL (1.8-7.7); Neutrophils % 80.7 %; Nucleated Red Blood Cells % 0 %; Platelet Count 136 10^3/cmm (157-399); Red Blood Count 3.69 10^6/uL (3.85-5.65); Red Cell Distribution Width 18.2 % (12.1-15.1); White Blood Count 9.72 10^3/uL (3.29-11.43)
[2024-03-16 06:00] LABS: Alanine Aminotransferase 54 U/L (0-41); Albumin Level 3.3 g/dL (3.5-5.2); Alkaline Phosphatase 99 U/L (40-130); Anion Gap 10.7 (5-19); Aspartate Amino Transferase 28 U/L (0-40); Blood Urea Nitrogen 26 mg/dL (8-23); Calcium 8.7 mg/dL (8.5-10.5); Carbon Dioxide 33 mmol/L (22-29); Chloride 100 mmol/L (98-107); Creatinine Clr Calc Pharmacy 58.8611; Globulin 2.6 g/dL (1.3-4.6); Glucose 94 mg/dL (65-115); Osmolality Calculated 295 mOsm/kg (285-295); Potassium 3.7 mmol/L (3.5-5.1); Sodium 140 mmol/L (136-145); Total Bilirubin 1.1 mg/dL (0.15-1.2); Total Protein 5.9 g/dL (6.6-8.7)
[2024-03-16] MEDS: piperacillin-tazobactam 3.375 GM in sodium chloride 0.9% (plus) 50 ML IV ×3 (06:04→22:36)
[2024-03-16] MEDS: sennosides-docusate Tablet 1 TAB PO (09:14)
[2024-03-16] MEDS: FUROsemide 10 mg/mL SDV 10mL 40 MG IVP (09:14)
[2024-03-16] MEDS: amiodarone 200 mg Tablet 400 MG PO (09:15)
[2024-03-16] MEDS: BuSPIRONE 10 mg Tablet 5 MG PO ×2 (09:16→18:33)
[2024-03-16] MEDS: pantoprazole 40 mg SDV IVP ×2 (09:16→18:33)
[2024-03-16] MEDS: guaiFENesin 600 mg Tablet PO ×2 (09:17→18:33)
[2024-03-16] MEDS: metoprolol tartrate 25 mg Tablet 12.5 MG PO ×2 (10:45→22:37)
[2024-03-16] MEDS: acetaminophen 500 mg Tablet PO ×2 (16:10→22:38)
[2024-03-16] MEDS: gabapentin 300 mg Capsule PO (18:34)
--- NOTE | 2024-03-16 20:42 | P.PN_ITS ---
Subjective 2 Subjective: Discussed with him approval of rehabilitation. He expresses concern about discharge today with regards to his breathing, still having productive cough, and is concerned about worsening dyspnea. Vitals/I&O/Wt Last Vital Signs Temp 98.0 F 03/16/24 19:58 Pulse 76 03/16/24 19:58 Resp 19 H 03/16/24 19:58 BP 126/80 03/16/24 19:58 Pulse Ox 94 03/16/24 19:58 O2 Del Method Nasal Cannula 03/16/24 19:58 O2 Flow Rate 2 03/16/24 19:58 FiO2 30 03/12/24 13:15 03/16/24 03/16/24 03/16/24 06:59 14:59 22:59 Intake Total 530 / 1470 410 / 410 240 / 650 Output Total 250 / 1550 800 / 800 Balance 280 / -80 -390 / -390 240 / -150 Weight last 48 hrs Weight 75.75 kg Weight 77.7 kg Physical Exam 2 Narrative: Sitting up in chair Const: COMMON NORMALS: alert GENERAL APPEARANCE: cooperative O RIENTATION/CONSCIOUSNESS: Yes awake HENMT: COMMON NORMALS: oropharynx normal Neck/C-Spine: COMMON NORMALS: no JVD Resp: COMMON NORMALS: normal respiratory effort and clear to auscultation bilaterally AUSCULTATION: clear to auscultation bilaterally Cardio: COMMON NORMALS: no JVD, regular rhythm, S1 normal heart sound present, S2 normal heart sound present and No murmurs present (Cardio) RHYTHM: regular rhythm HEART SOUNDS: S1 normal heart sound present and S2 normal heart sound present GI: COMMON NORMALS: Normal to inspection, nondistended, normoactive bowel sounds present, Soft to palpation and non-tender PALPATION: Yes Soft to palpation Extremity: COMMON NORMALS: no joint enlargement NARRATIVE EXTREMITY EXAM: Mod swelling, faint bruising of the left thigh, mild swelling over distal left lower extremity. Neuro: COMMON NORMALS: moves all extremities SENSORIUM/ORIENTATION: Yes alert Skin: COMMON NORMALS: no rashes or lesions noted GENERAL SKIN EXAM: no rashes or lesions noted Urinary Catheter Management: Ashley: Cath Placed During This Visit: yes, but has since been removed by the nurse Reason for Continuing Indwelling Catheter: Decision to DC Catheter Urinary Catheter Date of Insertion: 03/11/24 Urinary Catheter Time of Insertion: 22:15 Date Urinary Catheter Removed: 03/14/24 Time Urinary Catheter Discontinued: 16:33 Data 03/16/24 05:11 03/16/24 05:11 Micro: Microbiology 03/11/24 16:51 Blood Culture - Final Blood NO GROWTH AFTER 5 DAYS 03/11/24 16:48 Blood Culture - Final Blood NO GROWTH AFTER 5 DAYS A&P Assessment and plan (1) Akathisia: (2) Anxiety and depression: (3) CHF (congestive heart failure): Qualifiers: Heart failure chronicity: chronic Heart failure type: diastolic Qualified Code(s): I50.32 - Chronic diastolic (congestive) heart failure (4) Afib: Qualifiers: Atrial fibrillation type: paroxysmal Qualified Code(s): I48.0 - Paroxysmal atrial fibrillation (5) Venous stasis: (6) BPH (benign prostatic hyperplasia): Qualifiers: Lower urinary tract symptom presence: symptoms present Lower urinary tract symptom detail: incomplete bladder emptying Qualified Code(s): N40.1 - Benign prostatic hyperplasia with lower urinary tract symptoms; R39.14 - Feeling of incomplete bladder emptying (7) Anemia: (8) Closed fracture of left hip: Qualifiers: Encounter type: initial encounter Qualified Code(s): S72.002A - Fracture of unspecified part of neck of left femur, initial encounter for closed fracture (9) Hematoma: (10) Acute on chronic hypoxic respiratory failure: (11) Generalized weakness: Plan Acute on chronic hypoxia: He feels his breathing is still suboptimal, still productive cough. Will add budesonide. Continue breathing treatments. Flutter valve. Guaifenesin. Continue Zosyn, monitor for risk of cytopenia, C. difficile COPD exacerbation Left lower lobe mucous plug At baseline uses 3 L currently on 4 L without any respiratory distress or chest pain Possible aspiration Discussed with speech therapy, appreciate evaluation. Continue soft and bite sized food consistently, thickened liquids. Discussed with patient case manager Transaminitis: Reviewed liver parameters. Transaminitis resolving. Reviewed T. bili, AST, LT, alk phos. Gallbladder without sludge or stone, unremarkable. No pericholecystic fluid. Incidentally noted small right renal cortical cyst. Improved after discontinuation of Keppra. Repeat CMP. Normal right upper quadrant pain or tenderness, however, with new worsening will assess ultrasound. Additionally requested hepatitis panel. Discussed with him discontinuing Keppra as he has not had any seizure activity, and he has been on amiodarone previously but Keppra is a new medication. Discussed consideration of discontinuation of amiodarone. Monitor for risk of worsening transaminitis, acute liver failure. Recheck liver parameters. Discussed with patient case manager, nursing. Case management to pursue authorization [facility]. Akathisia: No seizures. Noted some improving rigidity in upper extremities. Also noted worsening transaminitis, hyperbilirubinemia. Discussed with him discussed with him discontinuation of Keppra. Stopped. Continue to monitor condition. So far remains awake, alert, responsive, cooperative. Without seizure-like episodes. Does have tremor. Continue seizure precautions. Monitor for any seizure episodes. Discussed with nursing, patient case manager-obtain PT evaluation. Would benefit from rehabilitation at SNF. Has Ashley catheter in place due to urinary retention with history of BPH. Patient had resting tremors and rigidity on active movement of extremities Possible seizure: Stop Keppra. Without further episodes so far. Resumed gabapentin. Buspirone. Thoracic aortic aneurysm 4.7 cm, infrarenal abdominal aorta 4.3 cm No active sign of hemodynamic compromise Patient not complaining of chest pain or back pain Chronic compression fracture of thoracic area Opioids with bowel regimen Persistent hematoma, drop in hemoglobin avoid DVT prophylaxis and antiplatelet therapy: Reviewed hemoglobin, maintain hemoglobin 9.9. Reviewed orthopedic note. No additional changes. Clarence have been removed from the left thigh. Orthopedics has signed off, following peripherally. Withhold anticoagulation. SCDs. Hold citalopram for now. There is left lower extremity swelling. Obtain duplex ultrasound to assess for any DVT. Chronic kidney disease: Creatinine seems around baseline Hypomagnesemia: Reviewed using. Recheck. DNR/DNI goals of care discussed with the patient and confirmed with [facility], sister also wants what Jamie is stating at this point As per day sister and patient he has been eating regular diet DVT prophylaxis: SCDs Attestations 2 Medical Necessity Statement*: Continue admission for assessment of management of COPD exacerbation, mucous plugging, possible aspiration pneumonia, possible seizure, left thigh hematoma with acute anemia. and High MDM includes described risk of complication, morbidity or mortality of management as documented Diagnoses Akathisia G25.71 Anxiety and depression F41.9; F32.A Chronic diastolic congestive heart failure I50.32 Heart failure chronicity: chronic Heart failure type: diastolic Paroxysmal atrial fibrillation I48.0 Atrial fibrillation type: paroxysmal Venous stasis I87.8 Benign prostatic hyperplasia with incomplete bladder emptying N40.1; R39.14 Lower urinary tract symptom presence: symptoms present Lower urinary tract symptom detail: incomplete bladder emptying Anemia D64.9 Closed fracture of left hip S72.002A Encounter type: initial encounter Hematoma T14.8XXA Acute on chronic hypoxic respiratory failure J96.21 Generalized weakness R53.1
[2024-03-16] MEDS: budesonide 0.5 mg/2 mL Neb INHALATION (21:14)
[2024-03-17] VITALS (7 sets, daily range): BP systolic 128–147; BP diastolic 75–91; PULSE 71–93; RESP 16–18; TEMP 36.7–37.1; O2SAT 93–96
[2024-03-17] MEDS: ipratropium-albuterol 3 mL Neb INHALATION ×2 (03:21→07:58)
[2024-03-17] MEDS: piperacillin-tazobactam 3.375 GM in sodium chloride 0.9% (plus) 50 ML IV (07:10)
[2024-03-17] MEDS: budesonide 0.5 mg/2 mL Neb INHALATION (07:58)
[2024-03-17] MEDS: amiodarone 200 mg Tablet 400 MG PO (09:25)
[2024-03-17] MEDS: guaiFENesin 600 mg Tablet PO (09:25)
[2024-03-17] MEDS: BuSPIRONE 10 mg Tablet 5 MG PO (09:25)
[2024-03-17] MEDS: FUROsemide 10 mg/mL SDV 10mL 40 MG IVP (09:26)
[2024-03-17] MEDS: sennosides-docusate Tablet 1 TAB PO (09:26)
[2024-03-17] MEDS: pantoprazole 40 mg SDV IVP (09:26)
[2024-03-17] MEDS: acetaminophen 500 mg Tablet PO (09:43)
--- NOTE | 2024-03-17 10:46 | PC.SOCIAL ---
IMM Update pg 2 of IMM Updated and reviewed w/ patient. Copy provided and copy dated, initialed and placed in chart.
[2024-03-17] MEDS: metoprolol tartrate 25 mg Tablet 12.5 MG PO (10:47)
--- NOTE | 2024-03-17 10:53 | PC.NURSE ---
Per Jamie's request Patricia is called and updated that he will be discharged back to [place] for rehab today.
--- NOTE | 2024-03-17 11:11 | PM.DCS ---
Discharge Providers Date of Admission: 03/12/24 11:35 Date of Discharge: March 17, 2024 Attending Provider at Admission: Mayda Hobbs MD Attending Provider at Discharge: Alejo Palmer Primary Care Provider: CARY Dent Diagnoses at Discharge Discharge Diagnosis (1) Akathisia: Status: Acute (2) Anxiety and depression: Status: Acute (3) CHF (congestive heart failure): Status: Chronic Qualifiers: Heart failure chronicity: chronic Heart failure type: diastolic Qualified Code(s): I50.32 - Chronic diastolic (congestive) heart failure (4) Afib: Status: Acute Qualifiers: Atrial fibrillation type: paroxysmal Qualified Code(s): I48.0 - Paroxysmal atrial fibrillation (5) Venous stasis: Status: Acute (6) BPH (benign prostatic hyperplasia): Status: Acute Qualifiers: Lower urinary tract symptom detail: incomplete bladder emptying Lower urinary tract symptom presence: symptoms present Qualified Code(s): N40.1 - Benign prostatic hyperplasia with lower urinary tract symptoms; R39.14 - Feeling of incomplete bladder emptying (7) Anemia: Status: Acute (8) Closed fracture of left hip: Status: Acute Qualifiers: Encounter type: initial encounter Qualified Code(s): S72.002A - Fracture of unspecified part of neck of left femur, initial encounter for closed fracture (9) Hematoma: Status: Acute (10) Acute on chronic hypoxic respiratory failure: Status: Acute (11) Generalized weakness: Status: Acute Reason for Visit Reason for Visit: sob Hospital Course Hospital Course Pleasant 73-year-old gentleman with history of recent hip fracture status postrepair, with postoperative hematoma requiring blood transfusion, with history of heart failure, recent pneumonia who was admitted after presenting with weakness, fatigue, lethargy, agitation, waxing and waning mental status. On presentation found with COPD exacerbation, urine retention, as well as akathisia, resting tremor, rigidity. Seizure-like activity was reported by nursing staff overnight after admission with Durick like nonpurposeful movements of lower extremities, but communicative and oriented, several hours later with progression to also change in mental status. Received Ativan, was started on Keppra. Follow-up lactic acid, prolactin were not elevated. Noted with worsening anemia during hospitalization, received blood transfusion, was reevaluated by orthopedics. Wound in good condition on reassessment, nazia were removed. Anticoagulation was discontinued. Citalopram withheld. Hemoccult was negative. Continued on treatment for COPD exacerbation. His condition gradually improved, he had no further episodes resembling any seizure, but did have tremor, some muscular rigidity which was slowly improving. Unclear if may have been related to citalopram and improving with discontinuation. For remainder of hospitalization, remained awake, alert, appropriate. Was found to be deconditioned work with therapy. During hospitalization noted rapid rise in transaminitis, possibly due to Keppra. Keppra was discontinued with subsequent resolution. Given low suspicion for seizure Keppra was not restarted. Continued on amiodarone. Please follow-up liver parameters. Please follow-up chronic conditions and incidentally noted thoracic aortic aneurysm 4.7 cm, infrarenal abdominal aorta 4.3 cm. Consider vascular evaluation. Physical Exam Narrative: Sitting up in chair Const: COMMON NORMALS: alert GENERAL APPEARANCE: cooperative ORIENTATION/CONSCIOUSNESS: Yes awake HENMT: COMMON NORMALS: oropharynx normal Neck/C-Spine: COMMON NORMALS: no JVD Resp: COMMON NORMALS: normal respiratory effort and clear to auscultation bilaterally AUSCULTATION: clear to auscultation bilaterally Cardio: COMMON NORMALS: no JVD, regular rhythm, S1 normal heart sound present, S2 normal heart sound present and No murmurs present (Cardio) RHYTHM: regular rhythm HEART SOUNDS: S1 normal heart sound present and S2 normal heart sound present GI: COMMON NORMALS: Normal to inspection, nondistended, normoactive bowel sounds present, Soft to palpation and non-tender PALPATION: Yes Soft to palpation Extremity: COMMON NORMALS: no joint enlargement NARRATIVE EXTREMITY EXAM: Decreasing now only mild swelling, faint bruising of the left thigh, mild swelling over distal left lower extremity. Neuro: COMMON NORMALS: moves all extremities SENSORIUM/ORIENTATION: Yes alert Skin: COMMON NORMALS: no rashes or lesions noted GENERAL SKIN EXAM: no rashes or lesions noted Urinary Catheter Management: Ashley: Cath Placed During This Visit: yes, but has since been removed by the nurse Reason for Continuing Indwelling Catheter: Decision to DC Catheter Urinary Catheter Date of Insertion: 03/11/24 Urinary Catheter Time of Insertion: 22:15 Date Urinary Catheter Removed: 03/14/24 Time Urinary Catheter Discontinued: 16:33 Discharge Data Studies Completed and Pending Completed Studies During Hospitalization Category Date Time Status CT chest wo con [id number] Stat Cat Scan 03/11/24 18:[address] femur LT wo con* [id number] Stat Cat Scan 03/11/24 18:[address] head wo con* [id number] Stat Cat Scan 03/11/24 18:[address] pelvis wo con [id number] Stat Cat Scan 03/11/24 18:05 Completed XR chest 1V portable [id number] Stat Exams 03/11/24 16:30 Completed XR hip LT 2-3V wo/w pel* [id number] Routine Exams 03/12/24 12:18 [place] [id number] Routine Ultrasound 03/14/24 20:11 Completed US gall bladder [id number] Routine Ultrasound 03/14/24 07:43 Completed Radiology Impressions Chest X-Ray 03/11/24 16:30 IMPRESSION: 1. No radiographically apparent acute cardiopulmonary disease. Previously seen small pleural effusions and lung base atelectasis or consolidation on recent CT exams are not well confirmed on this portable radiograph. This may require repeat CT if clinically warranted for follow-up. Pelvis CT 03/11/24 18:05 IMPRESSION: 1. Subacute comminuted displaced intertrochanteric fracture of the proximal left femur status post ORIF with development of an approximately 7 cm hematoma posterior to the fracture. Head CT 03/11/24 18:[address]: 1[address] evidence of acute intracranial pathology. 2. Chronic senescent changes as above. Chest CT 03/11/24 18:07 IMPRESSION: 1. Left lower lobe volume loss, which may be secondary to mucous plugging. Otherwise no evidence of acute abnormality. 2. Emphysematous changes. The presence of pulmonary emphysema on CT is an independent risk factor for lung cancer. In the absence of a history or active diagnosis of lung cancer, it is recommended that this patient with emphysema be evaluated for enrollment in a low dose CT lung cancer screening program. 3. 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 Consider follow-up vascular evaluatiion. Femur CT 03/11/24 18:28 IMPRESSION: 1. Diffuse soft tissue edema with an approximately 7 cm hematoma posterior to the proximal femoral fracture, new since 03/02/2024. Hip/Pelvis X-Ray 03/12/24 12:18 IMPRESSION: 1. Subacute comminuted displaced intertrochanteric fracture of the proximal left femur status post ORIF. No convincing evidence of new fracture. Gallbladder Ultrasound 03/14/24 07:43 Impression: 1. Small right renal cortical cyst. 2. Pancreas obscured by overlying bowel gas. Laboratory Results WBC 9.72 10^3/uL (3.29-11.43) 03/16/24 05:11 RBC 3.69 10^6/uL (3.85-5.65) L 03/16/24 05:11 Hgb 11.50 g/dL (11.27-16.99) 03/16/24 05:11 Hct 37.3 % (37-53) 03/16/24 05:11 MCV 101.1 fl (82-101) H 03/16/24 05:11 MCH 31.2 pg (27-33) 03/16/24 05:11 MCHC 30.8 g/dL (30-55) 03/16/24 05:11 RDW 18.2 % (12.1-15.1) H 03/16/24 05:11 Plt Count 136 10^3/cmm (157-399) L 03/16/24 05:11 MPV 9.3 fL (7.4-10.4) 03/16/24 05:11 Neut % (Auto) 80.7 % 03/16/24 05:11 Lymph % (Auto) 5.6 % 03/16/24 05:11 [place] % (Auto) 10.9 % 03/16/24 05:11 Eos % (Auto) 2.0 % 03/16/24 05:11 Baso % (Auto) 0.2 % 03/16/24 05:11 Neut # (Auto) 7.85 10^3/uL (1.8-7.7) H 03/16/24 05:11 Lymph # (Auto) 0.5 10^3/uL (0.8-4.8) L 03/16/24 05:11 [place] # (Auto) 1.1 10^3/uL (0.2-0.9) H 03/16/24 05:11 Eos # (Auto) 0.2 10^3/uL (0.0-0.8) 03/16/24 05:11 Baso # (Auto) 0.0 10^3/uL (0.0-0.1) 03/16/24 05:11 Nucleated RBC % (auto) 0 % 03/16/24 05:11 Nucleated RBCs # 0.0 /100WBC 03/16/24 05:11 PT 15.10 SECONDS (12.1-14.9) H 03/11/24 16:48 INR 1.16 (0.8-1.2) 03/11/24 16:48 APTT 36.3 SECONDS (23.9-36.7) 03/11/24 16:48 Specimen Type Arterial 03/12/24 03:15 Sample Site Brachial, right 03/12/24 03:15 ABG pH 7.41 (7.35-7.45) 03/12/24 03:15 ABG pCO2 45.3 mmHg (35-45) H 03/12/24 03:15 ABG pO2 125.0 mmHg (80.0-100.0) H 03/12/24 03:15 ABG PO2/FiO2 Ratio 312 03/12/24 03:15 ABG HCO3 28.6 mmol/L (22-26) H 03/12/24 03:15 ABG O2 Saturation 96.6 03/11/24 16:39 ABG Base Excess 3.5 mmol/L (-2.0-2.0) H 03/12/24 03:15 Alberto Test N/a 03/12/24 03:15 A-a O2 Gradient 16.8 mmHg (5-10) H 03/11/24 16:39 Hematocrit 22.1 % (42-52) L 03/12/24 03:15 Hgb O2 Saturation 92.7 % (95-100) L 03/11/24 16:39 Carboxyhemoglobin 3.2 %THgb (0.4-20.1) 03/11/24 16:39 Methemoglobin 0.9 % (0.4-1.5) 03/11/24 16:39 Total Hemoglobin 5.4 g/dL (14-18) L 03/11/24 16:39 Sodium 137.0 mmol/L (131-143) 03/11/24 16:39 Potassium 3.8 mmol/L (3.5-5.0) 03/11/24 16:39 Glucose 107.0 mg/dL (70-115) 03/11/24 16:39 Ionized Calcium 1.2 mmol/L (1.1-1.4) 03/11/24 16:39 O2 Delivery Device Bipap 03/12/24 03:15 O2 Liters/Min 15.0 % 03/11/24 22:00 FiO2 40.0 % 03/12/24 03:15 Tidal Volume 0.50 03/12/24 03:15 PEEP 8.0 cmH20 03/12/24 03:15 Microfilm Mounter ID [id number] 03/12/24 03:15 Sodium 140 mmol/L (136-145) 03/16/24 05:11 Potassium 3.7 mmol/L (3.5-5.1) 03/16/24 05:11 Chloride 100 mmol/L (98-107) 03/16/24 05:11 Carbon Dioxide 33 mmol/L (22-29) H 03/16/24 05:11 Anion Gap 10.7 (5-19) 03/16/24 05:11 BUN 26 mg/dL (8-23) H 03/16/24 05:11 Creatinine 1.2 mg/dL (0.7-1.2) 03/16/24 05:11 GFR Calculation Not Reportable 03/16/24 05:11 Glucose 94 mg/dL (65-115) 03/16/24 05:11 POC Glucose 116 mg/dL (70-110) H 03/12/24 20:11 Calculated Osmolality 295 mOsm/kg (285-295) 03/16/24 05:11 Lactic Acid 1.5 mmol/L (0.5-2.2) 03/11/24 16:48 Lactate 1.1 mmol/L (0.5-2.2) 03/12/24 07:50 Calcium 8.7 mg/dL (8.5-10.5) 03/16/24 05:11 Phosphorus 4.3 mg/dL (2.5-4.5) 03/12/24 04:44 Magnesium 1.9 mg/dL (1.7-2.3) 03/15/24 04:30 Total Bilirubin 1.1 mg/dL (0.15-1.2) 03/16/24 05:11 AST 28 U/L (0-40) 03/16/24 05:11 ALT 54 U/L (0-41) H 03/16/24 05:11 Alkaline Phosphatase 99 U/L (40-130) 03/16/24 05:11 Creatine Kinase 124 U/L (39-308) 03/12/24 04:44 Troponin T Baseline 57 ng/L (0-15) H 03/11/24 16:48 Troponin T 120 Minute 56.44 ng/L (0-15) H 03/11/24 18:06 Delta Troponin T -0.56 ABS# (0-10) L 03/11/24 18:06 C-Reactive Protein 61.1 mg/L (0.0-4.9) H 03/12/24 04:44 NT-Pro-B Natriuret Pep 6750 pg/mL (0-450) H 03/11/24 16:48 Total Protein 5.9 g/dL (6.6-8.7) L 03/16/24 05:11 Albumin 3.3 g/dL (3.5-5.2) L 03/16/24 05:11 Globulin 2.6 g/dL (1.3-4.6) 03/16/24 05:11 Procalcitonin 0.34 ng/mL (0-0.5) 03/12/24 04:44 TSH 1.45 uIU/mL (0.27-4.20) 03/13/24 07:36 Urine Color Yellow (Yellow) 03/11/24 22:16 Urine Appearance Clear (CLEAR) 03/11/24 22:16 Urine pH 5.0 (5-7) 03/11/24 22:16 Ur Specific [place] 1.017 (1.005-1.030) 03/11/24 22:16 Urine Protein Trace (Negative) A 03/11/24 22:16 Urine Glucose (UA) Negative (Normal) 03/11/24 22:16 Urine Ketones Negative (Negative) 03/11/24 22:16 Urine Blood Negative (Negative) 03/11/24 22:16 Urine Nitrate Negative (Negative) 03/11/24 22:16 Urine Bilirubin Negative (Negative) 03/11/24 22:16 Urine Urobilinogen 1.0 mg/dL (Negative) 03/11/24 22:16 Ur Leukocyte Esterase Negative (Negative) 03/11/24 22:16 Urine RBC 0-2 /hpf (0-2) 03/11/24 22:16 Urine WBC 0-5 /hpf (0-5) 03/11/24 22:16 Ur Squamous Epith Cells 0-5 /hpf (0-5) 03/11/24 22:16 Amorphous Sediment Not Reportable 03/11/24 22:16 Urine Bacteria None seen /hpf (NONE) 03/11/24 22:16 Hyaline Casts 4.52 /lpf 03/11/24 22:16 Urine Opiates Screen Positive ng/mL (Negative) H 03/11/24 22:16 Ur Barbiturates Screen Negative ng/mL (Negative) 03/11/24 22:16 Ur Phencyclidine Scrn Negative ng/mL (Negative) 03/11/24 22:16 Ur Amphetamines Screen Negative ng/mL (Negative) 03/11/24 22:16 U Benzodiazepines Scrn Negative ng/mL (Negative) 03/11/24 22:16 Urine Cocaine Screen Negative ng/mL (Negative) 03/11/24 22:16 U Marijuana (THC) Screen Negative ng/mL (Negative) 03/11/24 22:16 Ethyl Alcohol < 10 mg/dL (0-10) 03/11/24 18:06 Coronavirus (PCR) Negative (Negative) 03/11/24 17:15 Hepatitis A IgM Ab Non-reactive (Nonreactive) 03/14/24 03:03 Hep Bs Antigen Non-reactive (Nonreactive) 03/14/24 03:03 Hep B Core IgM Ab Non-reactive (Nonreactive) 03/14/24 03:03 Hepatitis C Antibody Non-reactive (Nonreactive) 03/14/24 03:03 Influenza A (PCR) Negative (Negative) 03/11/24 17:15 Influenza Type B (PCR) Negative (Negative) 03/11/24 17:15 RSV (PCR) Negative (Negative) 03/11/24 17:15 Blood Type B Positive 03/11/24 17:03 Rho(D) Type Rh positive 03/11/24 17:03 Antibody Screen Negative 03/11/24 17:03 Crossmatch See Detail 03/11/24 17:03 Vitals Last Vital Signs Temp 98.7 F 03/17/24 08:00 Pulse 84 03/17/24 08:00 Resp 16 03/17/24 08:00 BP 142/81 03/17/24 08:00 Pulse Ox 94 12/20/24 08:00 O2 Del Method Nasal Cannula 03/17/24 08:00 O2 Flow Rate 2 03/17/24 07:58 FiO2 30 03/12/24 13:15 Discharge Plan Discharge Patient Disposition: Xfer SNF Condition: Stable Prescriptions: New sennosides-docusate sodium [Stool Softener-Laxative] 8.6-50 mg Tablet 1 tab PO DAILY Qty: 90 0RF amoxicillin-pot clavulanate 875-125 mg tablet 1 tab PO BID 3 Days Qty: 6 0RF prednisone 20 mg tablet 20 mg PO DAILY 3 Days Qty: 3 0RF Continued atorvastatin 40 mg tablet 40 mg PO DAILY 90 Days Qty: 90 1RF albuterol sulfate 90 mcg/actuation HFA aerosol inhaler 1 puff inhalation Q4H PRN (Reason: Shortness Of Breath Or Wheezing) Qty: 8.5 3RF ipratropium-albuterol 0.5 mg-3 mg(2.5 mg base)/3 mL solution for nebulization 3 ml INHALATION Q6H PRN (Reason: Shortness Of Breath) Qty: 180 3RF Pacerone 200 mg tablet 400 mg PO DAILY Qty: 180 1RF pantoprazole 40 mg tablet,delayed release (DR/EC) 40 mg PO DAILY 90 Days Qty: 180 1RF cyclobenzaprine 5 mg tablet 5 mg PO BID PRN (Reason: muscle spasm) 30 Days Qty: 60 1RF budesonide-formoterol [Symbicort] 160-4.5 mcg/actuation HFA aerosol inhaler 2 puff inhalation BID Qty: 10.2 6RF cyanocobalamin (vitamin B-12) 1,000 mcg capsule 1,000 mcg PO DAILY 30 Days Qty: 30 0RF furosemide [Lasix] 40 mg tablet 40 mg PO DAILY PRN (Reason: Edema) tamsulosin 0.4 mg capsule 0.8 mg PO QPM gabapentin 300 mg capsule 300 mg PO QPM buspirone 5 mg Tablet 5 mg PO BID clopidogrel [Plavix] 75 mg Tablet 75 mg PO DAILY Mucinex DM 30-600 mg Tablet Extended Release 12 Hr 1 tab PO Q12H PRN (Reason: Congestion) fluticasone propionate 50 mcg/actuation [place],Suspension 1 spray INTRANASAL DAILY Rx Instructions: administer into each nostril magnesium L-lactate 84 mg Tablet Extended Release 84 mg PO DAILY polysaccharide iron complex [Ferrex 150] 150 mg iron Capsule 150 mg PO BIDWM Qty: 30 0RF metoprolol tartrate 25 mg Tablet 12.5 mg PO Q12H Qty: 60 0RF thiamine mononitrate (vit B1) [Vitamin B-1 (mononitrate)] 100 mg Tablet 100 mg PO DAILY Qty: 30 0RF multivitamin with folic acid [Thera] 400 mcg Tablet 1 tab PO DAILY Qty: 30 0RF Held aspirin [Adult Low Dose Aspirin] 81 mg tablet,delayed release (DR/EC) 81 mg PO DAILY Hold Instructions: Resume on 03/31/24. Discontinued citalopram 20 mg tablet 20 mg PO DAILY 30 Days Qty: 30 0RF enoxaparin 40 mg/0.4 mL Syringe 40 mg SUBCUT Q24H 30 Days Qty: 12 0RF Discharge Orders: Discharge Order (Routine); Ordered 03/17/24 Ordered By: Alejo Palmer Referrals: [facility] [Provider Group] - 2 weeks (rigidity) [facility] [Outside] FELIPE Hector FNP [Primary Care Provider] - 4-7 days Discharge Diet: As Directed Discharge Activity: As per PT/OT instructions and Oxygen as instructed Patient Instructions: Opioid Safety Activity Restrictions/Additional Instructions: Orthopedic DC instructions Okay to shower over dressings if they do become wet these should be removed and new dressings applied Weight-bear as tolerated to operative lower extremity Ice as needed for pain and swelling Take pain medication as prescribed Take antinausea medication as needed Supplement with Citracal vitamin D for bone health and healing Pain medication can cause constipation. take [id number] stool softeners and or MiraLAX. Follow-up in the orthopedic office in 2 weeks Contact the office for any questions or concerns Please maintain dysphagia level 6 diet with soft and bite sized foods with mildly thick liquids. Maintain aspiration precautions Follow-up with your primary doctor for recovery from COPD exacerbation. Continue breathing treatments. Complete antibiotic course. Please have your primary doctor reassess your after episode of possible seizure, as well as reassess liver parameters which were transiently elevated possibly due to antiseizure medication Keppra. Follow-up with your primary doctor as well as with orthopedics to reassess continued healing of the left thigh and reassess left thigh hematoma. Reassessment of blood counts. Lovenox and citalopram are discontinued at current time due to risk of bleeding. Aspirin is held as well. Please follow-up with your primary provider for reassessment as to when aspirin, antidepressant may be restarted safely Please follow-up with your primary doctor and neurology with regards to muscle rigidity. Follow-up with your primary doctor regarding thoracic aortic aneurysm. Seek medical attention in case of any worsening or new concerning symptoms. Discharge Attestations Time Spent in Discharge Care*: greater than 30 min Quality Metrics Clinical Quality Measures [ No reported AMI, CVA or VTE this stay] Coding Level of Care Code 09666 Total time (in minutes) for Discharge: 45 Diagnoses Akathisia G25.71 Anxiety and depression F41.9; F32.A Chronic diastolic congestive heart failure I50.32 Heart failure chronicity: chronic Heart failure type: diastolic Paroxysmal atrial fibrillation I48.0 Atrial fibrillation type: paroxysmal Venous stasis I87.8 Benign prostatic hyperplasia with incomplete bladder emptying N40.1; R39.14 Lower urinary tract symptom detail: incomplete bladder emptying Lower urinary tract symptom presence: symptoms present Anemia D64.9 Closed fracture of left hip S72.002A Encounter type: initial encounter Hematoma T14.8XXA Acute on chronic hypoxic respiratory failure J96.21 Generalized weakness R53.1
--- NOTE | 2024-03-17 11:25 | PC.NURSE ---
Report is called to JULISSA Gomez at [facility].
--- NOTE | 2024-03-17 12:48 | PC.NURSE ---
Patient is discharged with paperwork to [facility] via the [facility] by [facility] 1245. Cellphone, cellphone box, and stress ball were sent with patient. Hospital O2 tank and blanket were sent with patient, swing driver will return tank and blanket to hospital.
== END 2024-03-17 12:48 | disposition skilled nursing facility (03) | DRG 919 ==
LOC: ER 18:01 → ICU 03-12 06:37 → MEDSURG 03-14 21:21
PROVIDERS: Internal Medicine; Admitting Provider Internal Medicine; Emergency Provider Emergency Medicine; PCP Nurse Practitioner Family; Visit Provider Internal Medicine
DX: L76.32 Postprocedural hematoma of skin and subcutaneous tissue following other procedure (principal); J69.0 Pneumonitis due to inhalation of food and vomit; J96.21 Acute and chronic respiratory failure with hypoxia; I13.0 Hypertensive heart and chronic kidney disease with heart failure and stage 1 through stage 4 chronic kidney disease, or unspecified chronic kidney disease; I50.32 Chronic diastolic (congestive) heart failure; J44.1 Chronic obstructive pulmonary disease with (acute) exacerbation; T17.890A Other foreign object in other parts of respiratory tract causing asphyxiation, initial encounter; N17.9 Acute kidney failure, unspecified; R56.9 Unspecified convulsions; G25.71 Drug induced akathisia; F41.9 Anxiety disorder, unspecified; F32.A Depression, unspecified; N18.9 Chronic kidney disease, unspecified; I48.0 Paroxysmal atrial fibrillation; I87.8 Other specified disorders of veins; N40.1 Benign prostatic hyperplasia with lower urinary tract symptoms; R33.8 Other retention of urine; R39.14 Feeling of incomplete bladder emptying; D64.9 Anemia, unspecified; S72.002D Fracture of unspecified part of neck of left femur, subsequent encounter for closed fracture with routine healing; Y83.4 Other reconstructive surgery as the cause of abnormal reaction of the patient, or of later complication, without mention of misadventure at the time of the procedure; Y79.3 Surgical instruments, materials and orthopedic devices (including sutures) associated with adverse incidents; I71.40 Abdominal aortic aneurysm, without rupture, unspecified; I71.20 Thoracic aortic aneurysm, without rupture, unspecified; Z66 Do not resuscitate; W44.F9XA Other object of natural or organic material, entering into or through a natural orifice, initial encounter; E78.5 Hyperlipidemia, unspecified; J43.9 Emphysema, unspecified; I25.10 Atherosclerotic heart disease of native coronary artery without angina pectoris; E83.42 Hypomagnesemia; T42.6X5A Adverse effect of other antiepileptic and sedative-hypnotic drugs, initial encounter; R74.01 Elevation of levels of liver transaminase levels; Z99.81 Dependence on supplemental oxygen; Z99.3 Dependence on wheelchair; Z87.891 Personal history of nicotine dependence; Z79.82 Long term (current) use of aspirin; Z79.02 Long term (current) use of antithrombotics/antiplatelets
CPT/HCPCS: 0241U; 36415; 36416; 36430; 36600; 51702; 70450; 71045; 71250; 72192; 73502; 73700; 76705; 80048; 80051; 80053; 80074; 80306; 80307; 81001; 82274; 82330; 82550; 82803; 82805; 82962; 83605; 83735; 83880; 84100; 84145; 84443; 84484; 85025; 85610; 85730; 86140; 86850; 86900; 86920; 87040; 92507; 92526; 92610; 93005; 93971; 94640; 94660; 94664; 96365; 96372; 96374; 96375; 96376; 97116; 97162; 97165; 97530; 99285; G0378; J0131; J0515; J1630; J1940; J1953; J2060; J2470; J2543; J2919; J3411; J3475; J3490; J7626; P9016; P9040

== ENCOUNTER 2024-03-18 15:53 | Inpatient (IN) | payer MEDICARE, SELFPAY ==
[2024-03-18] VITALS (12 sets, daily range): BP systolic 97–139; BP diastolic 77–95; PULSE 81–92; RESP 17–20; TEMP 36.7; O2SAT 94–100
--- NOTE | 2024-03-18 16:05 | ECG_ITS ---
[facility] 2024-03-18 Pat Name: Jamie Davison Department: Room: Gender: Male [employer]inter: : [id number] Requested By: Dayton Silva Order Number: [id number] Bob MD: Gamaliel Varela M.D. Measurements Intervals [place] Rate: 84 P: -82 AR: 241 QRS: 62 QRSD: 99 T: 258 QT: 424 QTc: 502 Interpretive Statements SINUS RHYTHM WITH FIRST DEGREE AV BLOCK MODERATE T-WAVE ABNORMALITY, CONSIDER ANTEROLATERAL ISCHEMIA [-0.1+ mV T-WAVE IN V3-V6] MODERATE T-WAVE ABNORMALITY, CONSIDER INFERIOR ISCHEMIA [-0.1+ mV T-WAVE IN II/aVF] Compared to ECG 03/11/2024 22:55:17 First degree AV block now present T-wave abnormality still present Possible ischemia still present Electronically Signed On 03-20-2024 20:19:14 [employer]ES [employer]OC[employer] by Gamaliel Varela M.D. [email or web address]
--- NOTE | 2024-03-18 16:05 | XRR_ITS ---
PROCEDURE INFORMATION: Exam: XR Chest Exam date and time: 03/18/2024 4:29 PM Age: 73 years old Clinical indication: Cough and dyspnea; Additional info: Dyspnea/cough TECHNIQUE: Imaging protocol: Radiologic exam of the chest. Views: 1 view. COMPARISON: CT chest con [id number] 03/11/2024 6:20 PM FINDINGS: Airway: Airways are patent. Lungs: Linear and ground-glass haziness in the right lung base. Lung hyperlucency, favoring emphysema. Calcified granulomas throughout the lungs are benign. Remainder of the lungs are clear. Pleural spaces: There are no pleural effusions present. There is no evidence of pneumothorax. Heart/Mediastinum: Moderate cardiomegaly. Vasculature: Tortuous aorta. Calcified aortic knob. Bones/joints: No acute skeletal abnormality or aggressive osseous lesion. Soft tissues: No acute soft tissue findings. XR/XR chest 1V portable [id number] IMPRESSION: Atelectasis in the right lung base with suspicion for developing pneumonia.
[2024-03-18] MEDS: ipratropium-albuterol 3 mL Neb INHALATION ×2 (16:21→17:25)
[2024-03-18 16:27] LABS: ABG PH Result 7.27 (7.35-7.45); Arterial Blood Gas Hematocrit 38.7 % (42-52); Base Excess ABG 3.9 mmol/L (-2.0-2.0); Blood Gas Allen Test Pos; Blood Gas LPM 1.5 %; Blood Gas Operator Identificat WALCI; Blood Gas Sample Site Radial, left; Blood Gas Sample Type Arterial; Carboxyhemoglobin 2.1 %THgb (0.4-20.1); HCO3 ABG 32.7 mmol/L (22-26); HGB O2 Sat 94.7 % (95-100); Ionized Calcium Level - ABG 1.2 mmol/L (1.1-1.4); Methemoglobin 1.1 % (0.4-1.5); Oxygen Device NC; Oxygen Saturation ABG 97.9; PO2 ABG 99.6 mmHg (80.0-100.0); Potassium Level - ABG 4.4 mmol/L (3.5-5.0); Total Hemoglobin 12.6 g/dL (14-18)
[2024-03-18 16:28] LABS: ABG PCO2 70.6 mmHg (35-45)
--- NOTE | 2024-03-18 16:36 | ED_ITS ---
Documented by User: Dayton Santos, DO 03/21/24 14:55 HPI - SOB/Dyspnea 2 General: Chief Complaint: Shortness of Breath/Dyspnea Stated Complaint: sob Time Seen by Provider: 03/18/24 16:00 History of Present Illness: HPI Narrative: 73-year-old male presents emergency room PMS from [facility] was recently discharged. He has severe end-stage COPD he is requiring oxygen continuously EMS states he was hypoxic on 2 L by nasal cannula and he arrived. They increase his oxygen to 4 L and route. On arrival here he is 99 to 100% on 4 L he was turned back down to for blood gas shows he is retaining CO2. He has strong expiratory wheezes he is difficult to arouse. Related Data Home Medications Medication Instructions Recorded Confirmed aspirin 81 mg tablet,delayed 81 mg PO DAILY 12/23/23 03/19/24 release (Adult Low Dose Aspirin) buspirone 5 mg tablet 5 mg PO BID 02/19/24 03/19/24 clopidogrel 75 mg tablet (Plavix) 75 mg PO DAILY 02/19/24 03/19/24 dextromethorphan-guaifenesin 30 1 tab PO Q12H PRN Congestion 02/19/24 03/19/24 mg-600 mg tablet extended [id number] hr (Mucinex DM) fluticasone propionate 50 1 spray intranasal DAILY 02/19/24 03/19/24 mcg/actuation nasal spray,suspension furosemide 40 mg tablet (Lasix) 40 mg PO DAILY PRN Edema 02/19/24 03/19/24 gabapentin 300 mg capsule 300 mg PO QPM 02/19/24 03/19/24 magnesium L-lactate 84 mg 84 mg PO DAILY 02/19/24 03/19/24 tablet,extended release tamsulosin 0.4 mg capsule 0.8 mg PO QPM 02/19/24 03/19/24 folic acid 1 mg tablet 1 mg PO DAILY 03/19/24 03/19/24 Previous Rx's Medication Instructions Recorded cyanocobalamin (vitamin B-12) 1,000 mcg PO DAILY 30 days #30 caps 08/27/22 1,000 mcg capsule atorvastatin 40 mg tablet 40 mg PO DAILY 90 days #90 tabs 07/23/23 albuterol sulfate 90 mcg/actuation 1 puff inhalation Q4H PRN 12/23/23 aerosol inhaler Shortness Of Breath Or Wheezing #8.5 grams amiodarone 200 mg tablet (Pacerone) 400 mg (2 x 200 mg) PO DAILY #180 12/23/23 tabs ipratropium 0.5 mg-albuterol 3 mg 3 ml inhalation Q6H PRN Shortness 12/23/23 (2.5 mg base)/3 mL nebulization Of Breath #180 mL soln pantoprazole 40 mg tablet,delayed 40 mg PO DAILY 90 days #180 tabs 12/23/23 release budesonide-formoterol HFA 160 2 puff inhalation BID #10.2 grams 02/08/24 mcg-4.5 mcg/actuation aerosol inhaler (Symbicort) cyclobenzaprine 5 mg tablet 5 mg PO BID PRN muscle spasm 30 02/08/24 days #60 tabs metoprolol tartrate 25 mg tablet 12.5 mg (1/2 x 25 mg) PO Q12H #60 03/02/24 tabs multivitamin with folic acid 400 1 tab PO DAILY #30 tabs 03/02/24 mcg tablet (Thera) polysaccharide iron complex 150 mg 150 mg PO BIDWM #30 caps 03/02/24 iron capsule (Ferrex) thiamine mononitrate (vit B1) 100 100 mg PO DAILY #30 tabs 03/02/24 mg tablet (Vitamin B-1 (mononitrate)) amoxicillin 875 mg-potassium 1 tab PO BID 3 days #6 tabs 03/17/24 clavulanate 125 mg tablet prednisone 20 mg tablet 20 mg PO DAILY 3 days #3 tabs 03/17/24 sennosides 8.6 mg-docusate sodium 1 tab PO DAILY #90 tabs 03/17/24 50 mg tablet (Stool Softener-Laxative) Allergies Allergy/AdvReac Type Severity Reaction Status Date / Time bupropion [From Wellbutrin] Allergy Mild ALGY-Hives Verified 02/08/24 09:11 insect venom Allergy ALGY-Swell Verified 02/08/24 09:11 Lip/Tongue/Throat PFSH ED 2 PFSH: Medical History Alcoholism Hyperkalemia Positive cardiac stress test CAD (coronary artery disease) Afib CHF exacerbation History of spinal fracture Chronic back pain BPH (benign prostatic hyperplasia) Anxiety and depression Bacterial UTI Orthopnea Dyspnea, unspecified Enrolled in chronic care management PLEASE DO NOT REMOVE FROM ACTIVE Generalized weakness Encounter for smoking cessation counseling Alcohol abuse with withdrawal Chronic hypoxic respiratory failure Atrial fibrillation with rapid ventricular response Chronic kidney disease (CKD) COPD (chronic obstructive pulmonary disease) Acute exacerbation of CHF (congestive heart failure) Protein calorie malnutrition Diastolic CHF Chronic anticoagulation Physical deconditioning Vasculopathy CKD (chronic kidney disease) Alcohol abuse Acute kidney injury Alcohol cessation counseling Claudication Environmental and seasonal allergies Venous stasis Arthritis of ankle, left Emphysema lung Abnormality of lung on chest x-ray Encounter for screening for cardiovascular disorders History of abnormal breathing pattern BPH loc w urin obs/LUTS COPD (chronic obstructive pulmonary disease) AAA (abdominal aortic aneurysm) CHF (congestive heart failure) Dyslipidemia PAD (peripheral artery disease) HTN (hypertension) Surgical History Previous back surgery Hx of aorto-femoral bypass Hx of hand surgery Family History Father Hypertension CAD (coronary artery disease) Myocardial infarction Stroke Mother Cancer Denies family history of Diabetes Clotting disorder Dementia Chronic kidney disease (CKD) Suicide Anesthesia complication Bleeding disorder Lung disease Social History Smoking and tobacco/nicotine status: former use of tobacco/nicotine Quit status (tobacco/nicotine): has quit using Year quit tobacco: 2012 Former quit date comment: 1.5-2 ppd X 30 years Alcohol intake: current Alcohol intake frequency: few times a week Substance/Drug Use: never Lives independently: Yes Housing: House Marital status: Current occupational status: retired Physical Exam 2 Const: GENERAL APPEARANCE: cooperative ORIENTATION/CONSCIOUSNESS: Yes awake HENMT: COMMON NORMALS: normocephalic, atraumatic and hearing grossly normal bilaterally HEAD & SCALP: normocephalic and atraumatic Resp: EFFORT & INSPECTION: Yes labored and Yes uses accessory muscles A USCULTATION: wheezes Cardio: COMMON NORMALS: regular rate, regular rhythm and No murmurs present (Cardio) RATE: regular rate RHYTHM: regular rhythm GI: COMMON NORMALS: Soft to palpation and No hepatosplenomegaly present A USCULTATION: Yes normoactive bowel sounds PALPATION: Yes Soft to palpation, No Tenderness to palpation present (GI), No Guarding due to palpation present (GI) and Yes No hepatosplenomegaly present Extremity: COMMON NORMALS: normal to inspection, capillary refill normal, no clubbing, cyanosis or edema, no calf tenderness and no pedal edema Skin: COMMON NORMALS: no rashes or lesions noted GENERAL SKIN EXAM: no rashes or lesions noted Course 2 Vital Signs: Vital signs: Vital Signs Temperature 97.8 F 03/21/24 13:06 Pulse Rate 85 03/21/24 13:06 Respiratory Rate 22 H 03/21/24 13:06 Blood Pressure 154/93 03/21/24 13:06 Pulse Oximetry 96 03/21/24 13:06 Oxygen Delivery Me thod Nasal Cannula 03/21/24 13:06 Oxygen Flow Rate 4 03/21/24 13:06 Fraction of Inspir ed Oxygen 3 03/20/24 23:30 MDM - SOB/Dyspnea Medical Decision Making Care signed out to Dr. Monge at change of shift. See final notes for diagnosis and disposition. 73-year-old male checked out to me at shift change. This patient has end-stage COPD. He was recently in the hospital. BiPAP was used earlier to resuscitate the patient, following a blood gas showing significant respiratory acidosis. Repeat blood gas testing shows respiratory acidosis is improving. The patient did not tolerate BiPAP well, and is on nasal cannula oxygen, with good mentation and saturations currently he will require readmission. X-ray is free of infiltrate. Laboratories otherwise not terribly remarkable. He is influenza positive at this point, which will require treatment as well. Lab Data 03/21/24 05:02 03/21/24 05:02 Labs/Radiology: Radiology Impressions Chest X-Ray 03/18/24 16:05 IMPRESSION: Atelectasis in the right lung base with suspicion for developing pneumonia. Chest CTA 03/18/24 20:16 IMPRESSION: 1. There is no evidence for pulmonary emboli. 2. There is no evidence for aneurysmal dilatation, dissection or extravasation of the thoracic aorta. The previously described infrarenal abdominal aortic aneurysm is partially imaged today. 3. Bochdalek's hernia of the right hemidiaphragm 4. Background of centrilobular emphysema, bronchiectasis and pulmonary fibrosis. Strandy opacities in the lung bases bilaterally likely represents atelectasis although basilar infiltrates and pneumonia cannot be entirely excluded. COMMENTS: 1. Consistent with the [employer]'s Incidental Findings Committee white paper (J Am Rusty Radiol 2018): Any incidental renal lesion less than 1 cm or classified as too small to characterize, or any incidental cystic renal lesion characterized as simple-appearing, is likely benign. No follow-up imaging is recommended for these lesions per consensus recommendations based on imaging criteria. 2. The presence of pulmonary emphysema on CT is an independent risk factor for lung cancer. In the absence of a history or active diagnosis of lung cancer, it is recommended that this patient with emphysema be evaluated for enrollment in a low dose CT lung cancer screening program. Laboratory Results WBC 8.82 10^3/uL (3.29-11.43) 03/18/24 17: RBC 4.36 10^6/uL (3.85-5.65) 03/18/24 17:23 Hgb 13.10 g/dL (11.27-16.99) 03/18/24 17: Hct 44.1 % (37-53) 03/18/24 17: MCV 101.1 fl (82-101) H 03/18/24 17:23 MCH 30.0 pg (27-33) 03/18/24 17: MCHC 29.7 g/dL (30-55) L 03/18/24 17:23 RDW 17.3 % (12.1-15.1) H 03/18/24 17:23 Plt Count 142 10^3/cmm (157-399) L 03/18/24 17:23 MPV 9.7 fL (7.4-10.4) 03/18/24 17: Neut % (Auto) 90.4 % 03/18/24 17:23 Lymph % (Auto) 2.6 % 03/18/24 17:23 Ransom % (Auto) 6.3 % 03/18/24 17: Eos % (Auto) 0.0 % 03/18/24 17: Baso % (Auto) 0.1 % 03/18/24 17: Neut # (Auto) 7.97 10^3/uL (1.8-7.7) H 03/18/24 17:23 Lymph # (Auto) 0.2 10^3/uL (0.8-4.8) L 03/18/24 17:23 Ransom # (Auto) 0.6 10^3/uL (0.2-0.9) 03/18/24 17:23 Eos # (Auto) 0.0 10^3/uL (0.0-0.8) 03/18/24 17:23 Baso # (Auto) 0.0 10^3/uL (0.0-0.1) 03/18/24 17:23 Nucleated RBC % (auto) 0 % 03/18/24 17: Nucleated RBCs # 0.0 /100WBC 03/18/24 17:23 Specimen Type Arterial 03/18/24 18:04 Sample Site Radial, right 03/18/24 18:04 ABG pH 7.33 (7.35-7.45) L 03/18/24 18:04 ABG pCO2 58.8 mmHg (35-45) H 03/18/24 18:04 ABG pO2 72.0 mmHg (80.0-100.0) L 03/18/24 18:04 ABG HCO3 30.8 mmol/L (22-26) H 03/18/24 18:04 ABG O2 Saturation 95.2 03/18/24 18:04 ABG Base Excess 3.4 mmol/L (-2.0-2.0) H 03/18/24 18:04 Alberto Test Pos 03/18/24 18:04 A-a O2 Gradient 1.0 mmHg (5-10) L 03/18/24 18:04 Hematocrit 38.0 % (42-52) L 03/18/24 18:04 Hgb O2 Saturation 92.1 % (95-100) L 03/18/24 18:04 Carboxyhemoglobin 2.2 %THgb (0.4-20.1) 03/18/24 18:04 Methemoglobin 1.0 % (0.4-1.5) 03/18/24 18:04 Total Hemoglobin 12.4 g/dL (14-18) L 03/18/24 18:04 Sodium 142.0 mmol/L (131-143) 03/18/24 18:04 Potassium 4.1 mmol/L (3.5-5.0) 03/18/24 18:04 Glucose 132.0 mg/dL (70-115) H 03/18/24 18:04 Ionized Calcium 1.2 mmol/L (1.1-1.4) 03/18/24 18:04 O2 Delivery Device Nc 03/18/24 18:04 O2 Liters/Min 2.0 % 03/18/24 18:04 Principal Clerk Typist ID More[place] 03/18/24 18:04 Sodium 139 mmol/L (136-145) 03/18/24 17:23 Potassium 4.6 mmol/L (3.5-5.1) 03/18/24 17:23 Chloride 97 mmol/L (98-107) L 03/18/24 17:23 Carbon Dioxide 32 mmol/L (22-29) H 03/18/24 17:23 Anion Gap 14.6 (5-19) 03/18/24 17:23 BUN 34 mg/dL (8-23) H 03/18/24 17:23 Creatinine 1.1 mg/dL (0.7-1.2) 03/18/24 17:23 GFR Calculation Not Reportable 03/18/24 17:23 Glucose 131 mg/dL (65-115) H 03/18/24 17:23 Calculated Osmolality 297 mOsm/kg (285-295) H 03/18/24 17:23 Calcium 9.2 mg/dL (8.5-10.5) 03/18/24 17:23 Total Bilirubin 0.9 mg/dL (0.15-1.2) 03/18/24 17:23 AST 224 U/L (0-40) H 03/18/24 17:23 ALT 134 U/L (0-41) H 03/18/24 17:23 Alkaline Phosphatase 136 U/L (40-130) H 03/18/24 17:23 Total Protein 7.0 g/dL (6.6-8.7) 03/18/24 17:23 Albumin 3.6 g/dL (3.5-5.2) 03/18/24 17:23 Globulin 3.4 g/dL (1.3-4.6) 03/18/24 17:23 Urine Color Yellow (Yellow) 03/18/24 04:40 Urine Appearance Clear (CLEAR) 03/18/24 04:40 Urine pH 5.0 (5-7) 03/18/24 04:40 Ur Specific [place] 1.056 (1.005-1.030) H 03/18/24 04:40 Urine Protein 1+ (Negative) A 03/18/24 04:40 Urine Glucose (UA) Negative (Normal) 03/18/24 04:40 Urine Ketones Negative (Negative) 03/18/24 04:40 Urine Blood Negative (Negative) 03/18/24 04:40 Urine Nitrate Negative (Negative) 03/18/24 04:40 Urine Bilirubin Negative (Negative) 03/18/24 04:40 Urine Urobilinogen 0.2 mg/dL (Negative) 03/18/24 04:40 Ur Leukocyte Esterase Negative (Negative) 03/18/24 04:40 Urine RBC 0-2 /hpf (0-2) 03/18/24 04:40 Urine WBC 0-5 /hpf (0-5) 03/18/24 04:40 Ur Squamous Epith Cells 0-5 /hpf (0-5) 03/18/24 04:40 Amorphous Sediment Not Reportable 03/18/24 04:40 Urine Bacteria None seen /hpf (NONE) 03/18/24 04:40 Hyaline Casts 10.73 /lpf 03/18/24 04:40 Urine Mucus Trace /hpf 03/18/24 04:40 Coronavirus (PCR) Negative (Negative) 03/18/24 17:34 Influenza A (PCR) Positive (Negative) 03/18/24 17:34 Influenza Type B (PCR) Negative (Negative) 03/18/24 17:34 RSV (PCR) Negative (Negative) 03/18/24 17:34 Discharge Plan Discharge Patient Disposition: Admitted As Inpatient Admit Provider: Timi Roque Clinical Impression: Influenza A, Acute exacerbation of chronic obstructive airways disease, Pneumonia Condition: Stable Coding Level of Care Code ED Demolitionist for Chg Fwd Documented by User: Nilesh Monge DO 03/18/24 21:10 HPI - SOB/Dyspnea 2 General: Chief Complaint: Shortness of Breath/Dyspnea Stated Complaint: sob Time Seen by Provider: 03/18/24 16:00 Related Data Home Medications Medication Instructions Recorded Confirmed aspirin 81 mg tablet,delayed 81 mg PO DAILY 12/23/23 03/19/24 release (Adult Low Dose Aspirin) buspirone 5 mg tablet 5 mg PO BID 02/19/24 03/19/24 clopidogrel 75 mg tablet (Plavix) 75 mg PO DAILY 02/19/24 03/19/24 dextromethorphan-guaifenesin 30 1 tab PO Q12H PRN Congestion 02/19/24 03/19/24 mg-600 mg tablet extended [id number] hr (Mucinex DM) fluticasone propionate 50 1 spray intranasal DAILY 02/19/24 03/19/24 mcg/actuation nasal spray,suspension furosemide 40 mg tablet (Lasix) 40 mg PO DAILY PRN Edema 02/19/24 03/19/24 gabapentin 300 mg capsule 300 mg PO QPM 02/19/24 03/19/24 magnesium L-lactate 84 mg 84 mg PO DAILY 02/19/24 03/19/24 tablet,extended release tamsulosin 0.4 mg capsule 0.8 mg PO QPM 02/19/24 03/19/24 folic acid 1 mg tablet 1 mg PO DAILY 03/19/24 03/19/24 Previous Rx's Medication Instructions Recorded cyanocobalamin (vitamin B-12) 1,000 mcg PO DAILY 30 days #30 caps 08/27/22 1,000 mcg capsule atorvastatin 40 mg tablet 40 mg PO DAILY 90 days #90 tabs 07/23/23 albuterol sulfate 90 mcg/actuation 1 puff inhalation Q4H PRN 12/23/23 aerosol inhaler Shortness Of Breath Or Wheezing #8.5 grams amiodarone 200 mg tablet (Pacerone) 400 mg (2 x 200 mg) PO DAILY #180 12/23/23 tabs ipratropium 0.5 mg-albuterol 3 mg 3 ml inhalation Q6H PRN Shortness 12/23/23 (2.5 mg base)/3 mL nebulization Of Breath #180 mL soln pantoprazole 40 mg tablet,delayed 40 mg PO DAILY 90 days #180 tabs 12/23/23 release budesonide-formoterol HFA 160 2 puff inhalation BID #10.2 grams 02/08/24 mcg-4.5 mcg/actuation aerosol inhaler (Symbicort) cyclobenzaprine 5 mg tablet 5 mg PO BID PRN muscle spasm 30 02/08/24 days #60 tabs metoprolol tartrate 25 mg tablet 12.5 mg (1/2 x 25 mg) PO Q12H #60 03/02/24 tabs multivitamin with folic acid 400 1 tab PO DAILY #30 tabs 03/02/24 mcg tablet (Thera) polysaccharide iron complex 150 mg 150 mg PO BIDWM #30 caps 03/02/24 iron capsule (Ferrex) thiamine mononitrate (vit B1) 100 100 mg PO DAILY #30 tabs 03/02/24 mg tablet (Vitamin B-1 (mononitrate)) amoxicillin 875 mg-potassium 1 tab PO BID 3 days #6 tabs 03/17/24 clavulanate 125 mg tablet prednisone 20 mg tablet 20 mg PO DAILY 3 days #3 tabs 03/17/24 sennosides 8.6 mg-docusate sodium 1 tab PO DAILY #90 tabs 03/17/24 50 mg tablet (Stool Softener-Laxative) Allergies Allergy/AdvReac Type Severity Reaction Status Date / Time bupropion [From Wellbutrin] Allergy Mild ALGY-Hives Verified 02/08/24 09:11 insect venom Allergy ALGY-Swell Verified 02/08/24 09:11 Lip/Tongue/Throat PFSH ED 2 PFSH: Medical History Alcoholism Hyperkalemia Positive cardiac stress test CAD (coronary artery disease) Afib CHF exacerbation History of spinal fracture Chronic back pain BPH (benign prostatic hyperplasia) Anxiety and depression Bacterial UTI Orthopnea Dyspnea, unspecified Enrolled in chronic care management PLEASE DO NOT REMOVE FROM ACTIVE Generalized weakness Encounter for smoking cessation counseling Alcohol abuse with withdrawal Chronic hypoxic respiratory failure Atrial fibrillation with rapid ventricular response Chronic kidney disease (CKD) COPD (chronic obstructive pulmonary disease) Acute exacerbation of CHF (congestive heart failure) Protein calorie malnutrition Diastolic CHF Chronic anticoagulation Physical deconditioning Vasculopathy CKD (chronic kidney disease) Alcohol abuse Acute kidney injury Alcohol cessation counseling Claudication Environmental and seasonal allergies Venous stasis Arthritis of ankle, left Emphysema lung Abnormality of lung on chest x-ray Encounter for screening for cardiovascular disorders History of abnormal breathing pattern BPH loc w urin obs/LUTS COPD (chronic obstructive pulmonary disease) AAA (abdominal aortic aneurysm) CHF (congestive heart failure) Dyslipidemia PAD (peripheral artery disease) HTN (hypertension) Surgical History Previous back surgery Hx of aorto-femoral bypass Hx of hand surgery Family History Father Hypertension CAD (coronary artery disease) Myocardial infarction Stroke Mother Cancer Denies family history of Diabetes Clotting disorder Dementia Chronic kidney disease (CKD) Suicide Anesthesia complication Bleeding disorder Lung disease Social History Smoking and tobacco/nicotine status: former use of tobacco/nicotine Quit status (tobacco/nicotine): has quit using Year quit tobacco: 2012 Former quit date comment: 1.5-2 ppd X 30 years Alcohol intake: current Alcohol intake frequency: few times a week Substance/Drug Use: never Lives independently: Yes Housing: House Marital status: Current occupational status: retired Course 2 Vital Signs: Vital signs: Vital Signs Temperature 97.8 F 03/21/24 13:06 Pulse Rate 85 03/21/24 13:06 Respiratory Rate 22 H 03/21/24 13:06 Blood Pressure 154/93 03/21/24 13:06 Pulse Oximetry 96 03/21/24 13:06 Oxygen Delivery Me thod Nasal Cannula 03/21/24 13:06 Oxygen Flow Rate 4 03/21/24 13:06 Fraction of Inspir ed Oxygen 3 03/20/24 23:30 MDM - SOB/Dyspnea Medical Decision Making 73-year-old male checked out to me at shift change. This patient has end-stage COPD. He was recently in the hospital. BiPAP was used earlier to resuscitate the patient, following a blood gas showing significant respiratory acidosis. Repeat blood gas testing shows respiratory acidosis is improving. The patient did not tolerate BiPAP well, and is on nasal cannula oxygen, with good mentation and saturations currently he will require readmission. X-ray is free of infiltrate. Laboratories otherwise not terribly remarkable. He is influenza positive at this point, which will require treatment as well. Lab Data 03/21/24 05:02 03/21/24 05:02 Labs/Radiology: Radiology Impressions Chest X-Ray 03/18/24 16:05 IMPRESSION: Atelectasis in the right lung base with suspicion for developing pneumonia. Chest CTA 03/18/24 20:16 IMPRESSION: 1. There is no evidence for pulmonary emboli. 2. There is no evidence for aneurysmal dilatation, dissection or extravasation of the thoracic aorta. The previously described infrarenal abdominal aortic aneurysm is partially imaged today. 3. Bochdalek's hernia of the right hemidiaphragm 4. Background of centrilobular emphysema, bronchiectasis and pulmonary fibrosis. Strandy opacities in the lung bases bilaterally likely represents atelectasis although basilar infiltrates and pneumonia cannot be entirely excluded. COMMENTS: 1. Consistent with the [employer]'s Incidental Findings Committee white paper (J Am Rusty Radiol 2018): Any incidental renal lesion less than 1 cm or classified as too small to characterize, or any incidental cystic renal lesion characterized as simple-appearing, is likely benign. No follow-up imaging is recommended for these lesions per consensus recommendations based on imaging criteria. 2. The presence of pulmonary emphysema on CT is an independent risk factor for lung cancer. In the absence of a history or active diagnosis of lung cancer, it is recommended that this patient with emphysema be evaluated for enrollment in a low dose CT lung cancer screening program. Laboratory Results WBC 8.82 10^3/uL (3.29-11.43) 03/18/24 17:23 RBC 4.36 10^6/uL (3.85-5.65) 03/18/24 17:23 Hgb 13.10 g/dL (11.27-16.99) 03/18/24 17:23 Hct 44.1 % (37-53) 03/18/24 17:23 MCV 101.1 fl (82-101) H 03/18/24 17:23 MCH 30.0 pg (27-33) 03/18/24 17:23 MCHC 29.7 g/dL (30-55) L 03/18/24 17:23 RDW 17.3 % (12.1-15.1) H 03/18/24 17:23 Plt Count 142 10^3/cmm (157-399) L 03/18/24 17:23 MPV 9.7 fL (7.4-10.4) 03/18/24 17:23 Neut % (Auto) 90.4 % 03/18/24 17:23 Lymph % (Auto) 2.6 % 03/18/24 17:23 Ransom % (Auto) 6.3 % 03/18/24 17:23 Eos % (Auto) 0.0 % 03/18/24 17:23 Baso % (Auto) 0.1 % 03/18/24 17: Neut # (Auto) 7.97 10^3/uL (1.8-7.7) H 03/18/24 17:23 Lymph # (Auto) 0.2 10^3/uL (0.8-4.8) L 03/18/24 17:23 Ransom # (Auto) 0.6 10^3/uL (0.2-0.9) 03/18/24 17:23 Eos # (Auto) 0.0 10^3/uL (0.0-0.8) 03/18/24 17: Baso # (Auto) 0.0 10^3/uL (0.0-0.1) 03/18/24 17: Nucleated RBC % (auto) 0 % 03/18/24 17: Nucleated RBCs # 0.0 /100WBC 03/18/24 17:23 Specimen Type Arterial 03/18/24 18:04 Sample Site Radial, right 03/18/24 18:04 ABG pH 7.33 (7.35-7.45) L 03/18/24 18:04 ABG pCO2 58.8 mmHg (35-45) H 03/18/24 18:04 ABG pO2 72.0 mmHg (80.0-100.0) L 03/18/24 18:04 ABG HCO3 30.8 mmol/L (22-26) H 03/18/24 18:04 ABG O2 Saturation 95.2 03/18/24 18:04 ABG Base Excess 3.4 mmol/L (-2.0-2.0) H 03/18/24 18:04 Alberto Test Pos 03/18/24 18:04 A-a O2 Gradient 1.0 mmHg (5-10) L 03/18/24 18:04 Hematocrit 38.0 % (42-52) L 03/18/24 18:04 Hgb O2 Saturation 92.1 % (95-100) L 03/18/24 18:04 Carboxyhemoglobin 2.2 %THgb (0.4-20.1) 03/18/24 18:04 Methemoglobin 1.0 % (0.4-1.5) 03/18/24 18:04 Total Hemoglobin 12.4 g/dL (14-18) L 03/18/24 18:04 Sodium 142.0 mmol/L (131-143) 03/18/24 18:04 Potassium 4.1 mmol/L (3.5-5.0) 03/18/24 18:04 Glucose 132.0 mg/dL (70-115) H 03/18/24 18:04 Ionized Calcium 1.2 mmol/L (1.1-1.4) 03/18/24 18:04 O2 Delivery Device Nc 03/18/24 18:04 O2 Liters/Min 2.0 % 03/18/24 18:04 Principal Clerk Typist ID [place] 03/18/24 18:04 Sodium 139 mmol/L (136-145) 03/18/24 17:23 Potassium 4.6 mmol/L (3.5-5.1) 03/18/24 17:23 Chloride 97 mmol/L (98-107) L 03/18/24 17:23 Carbon Dioxide 32 mmol/L (22-29) H 03/18/24 17:23 Anion Gap 14.6 (5-19) 03/18/24 17:23 BUN 34 mg/dL (8-23) H 03/18/24 17:23 Creatinine 1.1 mg/dL (0.7-1.2) 03/18/24 17:23 GFR Calculation Not Reportable 03/18/24 17:23 Glucose 131 mg/dL (65-115) H 03/18/24 17:23 Calculated Osmolality 297 mOsm/kg (285-295) H 03/18/24 17:23 Calcium 9.2 mg/dL (8.5-10.5) 03/18/24 17:23 Total Bilirubin 0.9 mg/dL (0.15-1.2) 03/18/24 17:23 AST 224 U/L (0-40) H 03/18/24 17:23 ALT 134 U/L (0-41) H 03/18/24 17:23 Alkaline Phosphatase 136 U/L (40-130) H 03/18/24 17:23 Total Protein 7.0 g/dL (6.6-8.7) 03/18/24 17:23 Albumin 3.6 g/dL (3.5-5.2) 03/18/24 17:23 Globulin 3.4 g/dL (1.3-4.6) 03/18/24 17:23 Urine Color Yellow (Yellow) 03/18/24 04:40 Urine Appearance Clear (CLEAR) 03/18/24 04:40 Urine pH 5.0 (5-7) 03/18/24 04:40 Ur Specific [place] 1.056 (1.005-1.030) H 03/18/24 04:40 Urine Protein 1+ (Negative) A 03/18/24 04:40 Urine Glucose (UA) Negative (Normal) 03/18/24 04:40 Urine Ketones Negative (Negative) 03/18/24 04:40 Urine Blood Negative (Negative) 03/18/24 04:40 Urine Nitrate Negative (Negative) 03/18/24 04:40 Urine Bilirubin Negative (Negative) 03/18/24 04:40 Urine Urobilinogen 0.2 mg/dL (Negative) 03/18/24 04:40 Ur Leukocyte Esterase Negative (Negative) 03/18/24 04:40 Urine RBC 0-2 /hpf (0-2) 03/18/24 04:40 Urine WBC 0-5 /hpf (0-5) 03/18/24 04:40 Ur Squamous Epith Cells 0-5 /hpf (0-5) 03/18/24 04:40 Amorphous Sediment Not Reportable 03/18/24 04:40 Urine Bacteria None seen /hpf (NONE) 03/18/24 04:40 Hyaline Casts 10.73 /lpf 03/18/24 04:40 Urine Mucus Trace /hpf 03/18/24 04:40 Coronavirus (PCR) Negative (Negative) 03/18/24 17:34 Influenza A (PCR) Positive (Negative) 03/18/24 17:34 Influenza Type B (PCR) Negative (Negative) 03/18/24 17:34 RSV (PCR) Negative (Negative) 03/18/24 17:34 All radiology interpretation(s) finalized by discharge Discharge Plan Discharge Patient Disposition: Admitted As Inpatient Admit Provider: Timi Roque Clinical Impression: Influenza A, Acute exacerbation of chronic obstructive airways disease, Pneumonia Condition: Stable Coding Level of Care Code ED Demolitionist for Selvin Weston
[2024-03-18] MEDS: dexamethasone 10 mg/mL INJ IM (17:21)
--- NOTE | 2024-03-18 17:25 | PC.RESP ---
pt removed bipap and refuses to allow rt to place back on. rt attempted to educate pt on purpose, use, and need but pt still refuses. is aware.
[2024-03-18 17:40] LABS: Basophils % 0.1 %; Hematocrit 44.1 % (37-53); Lymphocytes # 0.2 10^3/uL (0.8-4.8); Lymphocytes % 2.6 %; Mean Corpuscular HGB Conc 29.7 g/dL (30-55); Mean Corpuscular Volume 101.1 fl (82-101); Mean Platelet Volume 9.7 fL (7.4-10.4); Monocytes # 0.6 10^3/uL (0.2-0.9); Monocytes % 6.3 %; Neutrophils # 7.97 10^3/uL (1.8-7.7); Neutrophils % 90.4 %; Nucleated Red Blood Cells % 0 %; Platelet Count 142 10^3/cmm (157-399); Red Blood Count 4.36 10^6/uL (3.85-5.65); Red Cell Distribution Width 17.3 % (12.1-15.1); White Blood Count 8.82 10^3/uL (3.29-11.43)
[2024-03-18 17:59] LABS: Alanine Aminotransferase 134 U/L (0-41); Albumin Level 3.6 g/dL (3.5-5.2); Alkaline Phosphatase 136 U/L (40-130); Anion Gap 14.6 (5-19); Aspartate Amino Transferase 224 U/L (0-40); Blood Urea Nitrogen 34 mg/dL (8-23); Calcium 9.2 mg/dL (8.5-10.5); Carbon Dioxide 32 mmol/L (22-29); Chloride 97 mmol/L (98-107); Creatinine Clr Calc Pharmacy 44.6719; Globulin 3.4 g/dL (1.3-4.6); Glucose 131 mg/dL (65-115); Osmolality Calculated 297 mOsm/kg (285-295); Potassium 4.6 mmol/L (3.5-5.1); Sodium 139 mmol/L (136-145); Total Bilirubin 0.9 mg/dL (0.15-1.2)
[2024-03-18 18:15] LABS: ABG PCO2 58.8 mmHg (35-45); ABG PH Result 7.33 (7.35-7.45); Base Excess ABG 3.4 mmol/L (-2.0-2.0); Blood Gas Allen Test Pos; Blood Gas Operator Identificat WALCI; Blood Gas Sample Site Radial, right; Blood Gas Sample Type Arterial; Carboxyhemoglobin 2.2 %THgb (0.4-20.1); HCO3 ABG 30.8 mmol/L (22-26); HGB O2 Sat 92.1 % (95-100); Ionized Calcium Level - ABG 1.2 mmol/L (1.1-1.4); Oxygen Device NC; Oxygen Saturation ABG 95.2; Potassium Level - ABG 4.1 mmol/L (3.5-5.0); Total Hemoglobin 12.4 g/dL (14-18)
[2024-03-18 18:39] LABS: Covid PCR NEGATIVE (Negative); Influenza A POSITIVE (Negative); Influenza B NEGATIVE (Negative); Respiratory Syncytial Virus Ce NEGATIVE (Negative)
--- NOTE | 2024-03-18 20:06 | ECG_ITS ---
[facility] Test Date: 2024-03-18 Pat Name: Jamie Davison Department: Room: ICU08 Gender: Male Carpentry Specialist: : [id number] Requested By: Timi Roque Order Number: [id number] Bob MD: Gamaliel Varela M.D. Measurements Intervals [place] Rate: 83 P: 0 DE: 0 QRS: 72 QRSD: 101 T: 210 QT: 464 QTc: 546 Interpretive Statements ATRIAL FIBRILLATION ST DEVIATION AND MARKED T-WAVE ABNORMALITY, CONSIDER ANTEROLATERAL ISCHEMIA [-0.5+ mV T-WAVE IN I/aVL/V3-V6] ST DEVIATION AND MODERATE T-WAVE ABNORMALITY, CONSIDER INFERIOR ISCHEMIA [-0.1+ mV T-WAVE IN II/aVF] Compared to ECG 03/18/2024 16:17:14 Sinus rhythm no longer present First degree AV block no longer present T-wave abnormality still present Possible ischemia still present Electronically Signed On 03-20-2024 20:16:46 HEATING PLANT SUPERINTENDENT by Gamaliel Varela M.D. [id number]
--- NOTE | 2024-03-18 20:09 | P.HP_ITS ---
Providers/Chief Complaint 2 Primary Care Provider: CARY Dent Chief Complaint: sob History of Present Illness Jamie Davison is a 73 year old male with a past medical history of atrial fibrillation, CHF, COPD, CAD, akathisia, CKD, who presents [facility] due to shortness of breath and cough. Patient was recently admitted to [facility] for acute hypoxic respiratory failure, discharged home, currently medically on 2 L, discharged to residential facility, had complaints of increased shortness of breath at residential facility, EMS was called, O2 was increased to 4 L, here he was placed on BiPAP, with improvement, currently off BiPAP on 2 L, he is alert oriented x 3, following all commands, shortness of breath improving, denies any chest pain, no palpitations Review of Systems 2 Const: Reports: fatigue and malaise; Denies: fever(s) Card: Denies: chest pain Resp: Reports: dyspnea Medications/Allergies Home Medications Medication Instructions Recorded Confirmed Last Taken Type cyanocobalamin (vitamin B-12) 1,000 mcg PO DAILY 30 days #30 caps 08/27/22 03/12/24 02/18/24 Rx 1,000 mcg capsule atorvastatin 40 mg tablet 40 mg PO DAILY 90 days #90 tabs 07/23/23 03/12/24 02/18/24 Rx albuterol sulfate 90 mcg/actuation 1 puff inhalation Q4H PRN 12/23/23 03/12/24 Unknown Rx aerosol inhaler Shortness Of Breath Or Wheezing #8.5 grams amiodarone 200 mg tablet (Pacerone) 400 mg (2 x 200 mg) PO DAILY #180 12/23/23 03/12/24 02/18/24 Rx tabs aspirin 81 mg tablet,delayed 81 mg PO DAILY 12/23/23 03/12/24 02/18/24 History release (Adult Low Dose Aspirin) ipratropium 0.5 mg-albuterol 3 mg 3 ml inhalation Q6H PRN Shortness 12/23/23 03/12/24 Unknown Rx (2.5 mg base)/3 mL nebulization Of Breath #180 mL soln pantoprazole 40 mg tablet,delayed 40 mg PO DAILY 90 days #180 tabs 12/23/23 03/12/24 02/18/24 Rx release budesonide-formoterol HFA 160 2 puff inhalation BID #10.2 grams 02/08/24 03/12/24 02/18/24 Rx mcg-4.5 mcg/actuation aerosol inhaler (Symbicort) cyclobenzaprine 5 mg tablet 5 mg PO BID PRN muscle spasm 30 02/08/24 03/12/24 Unknown Rx days #60 tabs buspirone 5 mg tablet 5 mg PO BID 02/19/24 03/12/24 Unknown History clopidogrel 75 mg tablet (Plavix) 75 mg PO DAILY 02/19/24 03/12/24 Unknown History dextromethorphan-guaifenesin 30 1 tab PO Q12H PRN Congestion 02/19/24 03/12/24 Unknown History mg-600 mg tablet extended gewerqm13 hr (Mucinex DM) fluticasone propionate 50 1 spray intranasal DAILY 02/19/24 03/12/24 Unknown History mcg/actuation nasal spray,suspension furosemide 40 mg tablet (Lasix) 40 mg PO DAILY PRN Edema 02/19/24 03/12/24 02/18/24 History gabapentin 300 mg capsule 300 mg PO QPM 02/19/24 03/12/24 02/17/24 History magnesium L-lactate 84 mg 84 mg PO DAILY 02/19/24 03/12/24 Unknown History tablet,extended release tamsulosin 0.4 mg capsule 0.8 mg PO QPM 02/19/24 03/12/24 02/17/24 History metoprolol tartrate 25 mg tablet 12.5 mg (1/2 x 25 mg) PO Q12H #60 03/02/24 03/12/24 Unknown Rx tabs multivitamin with folic acid 400 1 tab PO DAILY #30 tabs 03/02/24 03/12/24 Unknown Rx mcg tablet (Thera) polysaccharide iron complex 150 mg 150 mg PO BIDWM #30 caps 03/02/24 03/12/24 Unknown Rx iron capsule (Ferrex) thiamine mononitrate (vit B1) 100 100 mg PO DAILY #30 tabs 03/02/24 03/12/24 Unknown Rx mg tablet (Vitamin B-1 (mononitrate)) amoxicillin 875 mg-potassium 1 tab PO BID 3 days #6 tabs 03/17/24 Unknown Rx clavulanate 125 mg tablet prednisone 20 mg tablet 20 mg PO DAILY 3 days #3 tabs 03/17/24 Unknown Rx sennosides 8.6 mg-docusate sodium 1 tab PO DAILY #90 tabs 03/17/24 Unknown Rx 50 mg tablet (Stool Softener-Laxative) Allergies Allergy/AdvReac Type Severity Reaction Status Date / Time bupropion [From Wellbutrin] Allergy Mild ALGY-Hives Verified 02/08/24 09:11 insect venom Allergy ALGY-Swell Verified 02/08/24 09:11 Lip/Tongue/Throat PFSH Acute 2 PFSH: Medical History Alcoholism Hyperkalemia Positive cardiac stress test CAD (coronary artery disease) Afib CHF exacerbation History of spinal fracture Chronic back pain BPH (benign prostatic hyperplasia) Anxiety and depression Bacterial UTI Orthopnea Dyspnea, unspecified Enrolled in chronic care management PLEASE DO NOT REMOVE FROM ACTIVE Generalized weakness Encounter for smoking cessation counseling Alcohol abuse with withdrawal Chronic hypoxic respiratory failure Atrial fibrillation with rapid ventricular response Chronic kidney disease (CKD) COPD (chronic obstructive pulmonary disease) Acute exacerbation of CHF (congestive heart failure) Protein calorie malnutrition Diastolic CHF Chronic anticoagulation Physical deconditioning Vasculopathy CKD (chronic kidney disease) Alcohol abuse Acute kidney injury Alcohol cessation counseling Claudication Environmental and seasonal allergies Venous stasis Arthritis of ankle, left Emphysema lung Abnormality of lung on chest x-ray Encounter for screening for cardiovascular disorders History of abnormal breathing pattern BPH loc w urin obs/LUTS COPD (chronic obstructive pulmonary disease) AAA (abdominal aortic aneurysm) CHF (congestive heart failure) Dyslipidemia PAD (peripheral artery disease) HTN (hypertension) Surgical History Previous back surgery Hx of aorto-femoral bypass Hx of hand surgery Family History Father Hypertension CAD (coronary artery disease) Myocardial infarction Stroke Mother Cancer Denies family history of Diabetes Clotting disorder Dementia Chronic kidney disease (CKD) Suicide Anesthesia complication Bleeding disorder Lung disease Social History Smoking and tobacco/nicotine status: former use of tobacco/nicotine Quit status (tobacco/nicotine): has quit using Year quit tobacco: 2012 Former quit date comment: 1.5-2 ppd X 30 years Alcohol intake: current Alcohol intake frequency: few times a week Substance/Drug Use: never Lives independently: Yes Housing: House Marital status: Current occupational status: retired Vitals/I&O/Wt Last Vital Signs Temp 98.1 F 03/18/24 15:56 Pulse 86 03/18/24 18:24 Resp 18 03/18/24 17:22 BP 129/88 03/18/24 18:24 Pulse Ox 98 03/18/24 18:24 O2 Del Method Nasal Cannula 03/18/24 17:22 O2 Flow Rate 2 03/18/24 17:22 FiO2 28 03/18/24 16:39 Weight last 48 hrs Weight 54.431 kg Physical Exam 2 Const: COMMON NORMALS: no acute distress and patient oriented x3 GENERAL APPEARANCE: ill appearing and frail appearing NUTRITIONAL APPEARANCE: thin Eye: COMMON NORMALS: Equal, round and reactive pupils present Resp: COMMON NORMALS: normal respiratory effort, No retractions, No use of accessory muscles and clear to auscultation bilaterally AUSCULTATION: c rackles and wheezes Cardio: COMMON NORMALS: no JVD, regular rate, regular rhythm, S1 normal heart sound present and S2 normal heart sound present RATE: regular rate RHYTHM: regular rhythm HEART SOUNDS: S1 normal heart sound present and S2 normal heart sound present GI: COMMON NORMALS: Normal to inspection, nondistended, normoactive bowel sounds present, Soft to palpation and non-tender Extremity: COMMON NORMALS: no pedal edema Neuro: COMMON NORMALS: patient oriented x3 and CN's II-XII intact bilaterally Psych: COMMON NORMALS: mental status grossly normal Data 03/18/24 17:23 03/18/24 17:23 A&P Assessment and plan (1) Acute exacerbation of chronic obstructive airways disease: (2) Acute on chronic hypoxic respiratory failure: (3) Pneumonia: (4) Influenza A: Plan Acute hypoxic respiratory failure ? Multifactorial ? Secondary to COPD ? Influenza A ? Healthcare associated pneumonia ? Plan ? Monitor respiratory status closely ? Encourage BiPAP use ? Tamiflu ? Vancomycin ? Meropenem # DuoNeb # Budesonide ? Solu-Medrol ? Monitor respiratory status closely # Patient is DNR/DNI, confirmed with patient multiple times # Lovenox for DVT prophylaxis History of CHF, check BMP Transaminitis, monitor Akathisia, monitor History of anemia, monitor hemoglobin CKD, monitor Attestations 2 Medical Necessity Statement*: Patient requires hospitalization for acute hypoxic respiratory failure secondary to influenza A, pneumonia, COPD Diagnoses Acute exacerbation of chronic obstructive airways disease J44.1 Acute on chronic hypoxic respiratory failure J96.21 Pneumonia J18.9 Influenza A J10.1
--- NOTE | 2024-03-18 20:16 | CTR_ITS ---
PROCEDURE INFORMATION: Exam: CTA Chest With Contrast Exam date and time: 03/18/2024 11:10 PM Age: 73 years old Clinical indication: Shortness of breath; Patient HX: SOB with hypoxia TECHNIQUE: Imaging protocol: Computed tomographic angiography of the chest with contrast. Exam focused on the arteries. 3D rendering (Not supervised by radiologist): MIP and/or 3D reconstructed images were created by the technologist. Radiation optimization: All CT scans at this facility use at least one of these dose optimization techniques: automated exposure control; mA and/or kV adjustment per patient size (includes targeted exams where dose is matched to clinical indication); or iterative reconstruction. Contrast material: OMNI 350; Contrast volume: 78 ml; Contrast route: INTRAVENOUS (IV); COMPARISON: CT chest wo [facility] [id number] 03/11/2024 6:20 PM RADIATION DOSE METRICS: Total DLP (mGy-cm): 498.08 FINDINGS: Pulmonary arteries: Normal. No pulmonary emboli. Aorta: Calcifications are seen in the thoracic and abdominal aorta. There is an infrarenal abdominal aortic aneurysm partially visualized in today's examination but characterized in recent CT examination dated 03/02/2024. Lungs: There is a background of centrilobular emphysema, bronchiectasis and pulmonary fibrosis. There are strandy opacities present in the lower [place] thoraces bilaterally most probably represents atelectasis although bilateral basilar infiltrates and pneumonia cannot be entirely excluded. Pleural spaces: Unremarkable. No pneumothorax. No pleural effusion. Heart: Unremarkable. No cardiomegaly. No pericardial effusion. Coronary arteries: There are prominent coronary artery calcifications. Lymph nodes: Unremarkable. No enlarged lymph nodes. Diaphragm: There is a small Bochdalek's hernia seen on the right hemidiaphragm within the costophrenic recess. Kidneys: There are bilateral hypoattenuating cystic mass is seen within the kidneys, the largest is seen on the left in the upper pole measuring 2.4 cm. No further workup needed. Bones/joints: Severe anterior wedge compression of T6-T8 and moderate compression T10 vertebral bodies are seen. This is likely secondary to diffuse demineralization. Soft tissues: Stranding opacities are seen in the perinephric fascia likely representing chronic scarring although inflammatory changes and pyelonephritis cannot be entirely excluded in the appropriate clinical setting. CT/CT angio chest PE protcl [id number] IMPRESSION: 1. There is no evidence for pulmonary emboli. 2. There is no evidence for aneurysmal dilatation, dissection or extravasation of the thoracic aorta. The previously described infrarenal abdominal aortic aneurysm is partially imaged today. 3. Bochdalek's hernia of the right hemidiaphragm 4. Background of centrilobular emphysema, bronchiectasis and pulmonary fibrosis. Strandy opacities in the lung bases bilaterally likely represents atelectasis although basilar infiltrates and pneumonia cannot be entirely excluded. COMMENTS: 1. Consistent with the [employer]'s Incidental Findings Committee white paper (J Am Rusty Radiol 2018): Any incidental renal lesion less than 1 cm or classified as too small to characterize, or any incidental cystic renal lesion characterized as simple-appearing, is likely benign. No follow-up imaging is recommended for these lesions per consensus recommendations based on imaging criteria. 2. The presence of pulmonary emphysema on CT is an independent risk factor for lung cancer. In the absence of a history or active diagnosis of lung cancer, it is recommended that this patient with emphysema be evaluated for enrollment in a low dose CT lung cancer screening program.
[2024-03-18 21:01] LABS: Lactic Sepsis W/Reflex 3.3 mmol/L (0.5-2.2)
[2024-03-18 21:09] LABS: Troponin(5th) Baseline 136 ng/L (0-15)
[2024-03-18 21:26] LABS: C Reactive Protein 71.8 mg/L (0.0-4.9)
[2024-03-18 21:41] LABS: NT Pro B Type Natriuretic Pept 29013 pg/mL (0-450)
--- NOTE | 2024-03-18 21:46 | PC.NURSE ---
Pt. requested sandwich and some water. Pt. given sandwich and he states that its too dry , he can't swallow it. Pt. given water but states it tastes bad. Pt. states that is having trouble catching his breath. I asked the patient if he could try wearing the mask again, and he said yes he would try it. I have called respiratory to start him back on the mask at this time.
[2024-03-18 22:05] LABS: Procalcitonin 0.45 ng/mL (0-0.5)
[2024-03-18 22:24] LABS: Reflex Lactate Order REFLEX LACTIC ORDERD
[2024-03-18] MEDS: iohexol 350 mg/mL 500 mL Btl (per mL) IV (22:43)
--- NOTE | 2024-03-18 23:25 | ECG_ITS ---
[facility] Test Date: 2024-03-18 Pat Name: Jamie Davison Department: Room: ICU08 Gender: Male Claims Examiner: : 1950 Requested By: Timi Roque Order Number: [id number] Bob MD: Gamaliel Varela M.D. Measurements Intervals [place] Rate: 82 P: -77 [place]: 273 QRS: -2 QRSD: 102 T: 259 QT: 451 QTc: 528 Interpretive Statements ECTOPIC ATRIAL RHYTHM WITH FIRST DEGREE AV BLOCK WITH OCCASIONAL SUPRAVENTRICULAR PREMATURE COMPLEXES MARKED T-WAVE ABNORMALITY, CONSIDER ANTEROLATERAL ISCHEMIA [-0.5+ mV T-WAVE IN I/aVL/V3-V6] MODERATE T-WAVE ABNORMALITY, CONSIDER INFERIOR ISCHEMIA [-0.1+ mV T-WAVE IN II/aVF] Compared to ECG 03/18/2024 22:13:02 Ectopic atrial rhythm now present First degree AV block now present Atrial fibrillation no longer present T-wave abnormality still present Possible ischemia still present Electronically Signed On 03-20-2024 20:32:15 ARC WELDER APPRENTICE by Gamaliel Varela M.D. [id number]
[2024-03-18] MEDS: meropenem 500 mg SDV IVP (23:53)
[2024-03-18] MEDS: oseltamivir phosphate 75 mg Capsule PO (23:54)
[2024-03-18] MEDS: metoprolol tartrate 25 mg Tablet 12.5 MG PO (23:54)
[2024-03-18] MEDS: pantoprazole 40 mg SDV IVP (23:54)
[2024-03-18] MEDS: methylPREDNISolone sod succ 40 mg/mL INJ IVP (23:55)
[2024-03-18] MEDS: VANCOMYCIN ADD-Vantage 1,000 MG in 0.9% NaCl ADD-Vantage 250 ML 250 MG IV (23:56)
[2024-03-19] VITALS (62 sets, daily range): BP systolic 79–149; BP diastolic 60–107; PULSE 61–87; RESP 14–26; TEMP 36.2–37.1; O2SAT 75–100; BMI 22.1
[2024-03-19] MEDS: heparin 5,000 unit/mL INJ 1 mL IVP (00:47)
[2024-03-19] MEDS: heparin drip 25,000 UNIT/500 ML PREMIX 16 UNIT IV (00:47)
[2024-03-19 02:19] LABS: Basophils % 0.1 %; Hematocrit 40.7 % (37-53); Lymphocytes # 0.2 10^3/uL (0.8-4.8); Lymphocytes % 2.7 %; Mean Corpuscular HGB Conc 30.5 g/dL (30-55); Mean Corpuscular Hemoglobin 30.6 pg (27-33); Mean Corpuscular Volume 100.5 fl (82-101); Mean Platelet Volume 9.7 fL (7.4-10.4); Monocytes # 0.3 10^3/uL (0.2-0.9); Monocytes % 3.4 %; Neutrophils # 8.23 10^3/uL (1.8-7.7); Neutrophils % 93.2 %; Nucleated Red Blood Cells % 0 %; Platelet Count 175 10^3/cmm (157-399); Red Blood Count 4.05 10^6/uL (3.85-5.65); Red Cell Distribution Width 17.2 % (12.1-15.1); White Blood Count 8.83 10^3/uL (3.29-11.43)
[2024-03-19 02:41] LABS: Lactic Acid level (Lactate) 1.9 mmol/L (0.5-2.2)
[2024-03-19 02:42] LABS: Alanine Aminotransferase 244 U/L (0-41); Albumin Level 3.3 g/dL (3.5-5.2); Alkaline Phosphatase 138 U/L (40-130); Anion Gap 15.5 (5-19); Aspartate Amino Transferase 402 U/L (0-40); Blood Urea Nitrogen 35 mg/dL (8-23); Calcium 8.4 mg/dL (8.5-10.5); Carbon Dioxide 30 mmol/L (22-29); Chloride 98 mmol/L (98-107); Creatinine Clr Calc Pharmacy 64.2942; Glucose 136 mg/dL (65-115); Osmolality Calculated 298 mOsm/kg (285-295); Potassium 4.5 mmol/L (3.5-5.1); Sodium 139 mmol/L (136-145); Total Bilirubin 0.9 mg/dL (0.15-1.2); Total Protein 6.3 g/dL (6.6-8.7); Troponin 5 6HR Delta -19.9 ng/L (0-12)
[2024-03-19 02:43] LABS: Troponin 5 6HR 116.1 ng/L (0-15)
[2024-03-19] MEDS: ipratropium-albuterol 3 mL Neb INHALATION ×5 (03:36→20:41)
--- NOTE | 2024-03-19 06:51 | PC.NURSE ---
Increased lethargy noted this am, patient has been refusing bipap all night. Previously answers all orientation questions appropriately- but has rambling conversation with quirky responses. This am, difficulty to waken - vitals stable. blood sugar check to insure not hypoglycemic 162. Dr. Roque called updated on change in mental status. Leave patient on bipap now that he will wear it and continue to monitor.
[2024-03-19 06:56] LABS: Glucose Point of Care 162 mg/dL (70-110)
--- NOTE | 2024-03-19 07:39 | P.PN_ITS ---
Subjective 2 Subjective: Overnight, per day ICU nurse, patient's mental status has waxed and waned, such that he was obtunded overnight & required BiPAP; however, when his mental status improves, he becomes agitated and removes his BiPAP. Per nurse, patient is incontinent of urine. Patient was seen in the room, agitated and unable to tolerate the BiPAP. He kept asking that it be removed. He is AO to person and place. [facility] then stated that he was at [place]. His Day nurse contacted his alf regarding compliance and they stated that he is typically non-compliant until his mentation worsens. His ABG of this morning 7.27/68.6 and 117 was done on 3L O2. Started Precedex to try to help the patient better tolerate BiPAP. Lasix 60mg IVP x 1 and daily Azithromycin IV ordered. Vitals/I&O/Wt Last Vital Signs Temp 98.1 F 03/18/24 23:30 Pulse 74 03/19/24 05:46 Resp 23 H 03/19/24 05:30 BP 104/83 03/19/24 05:30 Pulse Ox 98 03/19/24 05:30 O2 Del Method Nasal Cannula 03/19/24 03:37 O2 Flow Rate 4 03/19/24 03:37 FiO2 28 03/18/24 16:39 03/18/24 03/19/24 03/19/24 22:59 06:59 14:59 Intake Total 250 / 250 Balance 250 / 250 Weight last 48 hrs Weight 76 kg Weight 76 kg Weight 54.431 kg Physical Exam 2 Const: GENERAL APPEARANCE: ill appearing; not cooperative and not comfortable NUTRITIONAL APPEARANCE: cachectic (w/ bitemporal wasting) HENMT: COMMON NORMALS: normocephalic, atraumatic, external ears normal and Normal external nose present HEAD & SCALP: normocephalic and atraumatic N OSE: Normal external nose present EXTERNAL EAR: Yes external ears normal O THER: dry oropharynx Eye: COMMON NORMALS: Equal, round and reactive pupils present and conjunctivae normal CONJUNCTIVA: Yes conjunctivae normal PUPIL: Yes Equal, round and reactive pupils present EOM: No EOM abnormal Neck/C-Spine: COMMON NORMALS: Thyroid normal THYROID: Thyroid normal C AROTIDS: No bruit CERVICAL SPINE: Yes cervical ROM normal Lymph: OTHER: No cervical or supraclavicular LAD Resp: EFFORT & INSPECTION: No able to speak in complete sentences, Yes abnormal respiratory pattern, Yes respiratory distress and Yes labored OTHER: diminished to absent breath sounds in the b/l lower lung puente. Slight expiratory wheeze in the L. lower lung field Cardio: OTHER: Unable to appreciate heart sounds due to barrel chest, abnormal respirations, but telemetry shows NSR GI: OTHER: BS+, NT, ND, no : OTHER: Avery to be placed. Extremity: GENERAL: No clubbing, Yes cyanosis and Yes deformity Neuro: CRANIAL NERVES: Yes CN normal except as noted SENSORY EXAM: Yes sensory level loss detected MOTOR EXAM: 5/5 motor strength present throughout Skin: NARRATIVE SKIN EXAM: slight wounds on toes Data 03/19/24 02:11 03/19/24 02:11 Micro: Microbiology 03/18/24 20:26 Blood Culture - Preliminary Blood SPECIMEN COLLECTED 03/18/24 20:15 Blood Culture - Preliminary Blood SPECIMEN COLLECTED A&P Assessment and plan (1) Anxiety and depression: (2) CHF (congestive heart failure): Qualifiers: Heart failure chronicity: chronic Heart failure type: diastolic Qualified Code(s): I50.32 - Chronic diastolic (congestive) heart failure (3) CAD (coronary artery disease): Qualifiers: Associated angina: without angina Coronary Disease-Associated Artery/Lesion type: quechan artery [place] vs. transplanted heart: quechan heart Qualified Code(s): I25.10 - Atherosclerotic heart disease of quechan coronary artery without angina pectoris (4) Dyslipidemia: (5) BPH (benign prostatic hyperplasia): Qualifiers: Lower urinary tract symptom detail: incomplete bladder emptying Lower urinary tract symptom presence: symptoms present Qualified Code(s): N40.1 - Benign prostatic hyperplasia with lower urinary tract symptoms; R39.14 - Feeling of incomplete bladder emptying (6) Influenza A: (7) Acute exacerbation of chronic obstructive airways disease: (8) Acute on chronic respiratory failure with hypoxia and hypercapnia: (9) Influenza A with pneumonia: (10) Transaminitis: Plan Mr. Davison is a 73yo man w/ a L. intertrochanteric femur fracture s/p ORIF with cephalomedullary nail on 02/20/2024 w/ post op-course requiring blood transfusion, Paroxysmal Afib, chronic HFpEF, severe end stage COPD w/ chronic hypoxic respiratory failure on continuous 4L O2, who was re-admitted for Acute COPD exacerbation secondary to Influenza A pneumonia and possible developing pneumonia. The patient was d/c'ed on 03/17 after being hospitalized for Acute COPD exacerbation with concern akathisia and seizure activity. He was noted to develop elevated LFTs. In the ED, patient's CXR showed atelectasis in the R. lung base w/ suspicion for developing pneumonia. A CTA was done that was negative for a PE, but showed possible R. lower lobe pneumonia. #Acute on chronic Hypoxic Respiratory failure secondary to Influenza A pneumonia and possible secondary bacterial pneumonia. #Influenza A pneumonia #Possible GNR R. lower lobe pneumonia - Continue Oseltamivir, Meropenem, Vanc. Start Azithromycin. #Acute COPD exacerbation #Endstage COPD, Pulmonary fibrosis & Bronchiectasis - Continue duonebs, Soludedrol, PPI #Possible acute on chronic HFpEF - Will give Lasix 60mg IVP x 1. Strict Is & Os. Place avery catheter on 03/19. #Transaminitis - Gall bladder US on 03/14 showing to no overt abnormalities. Also 03/14/2024 acute hepatits panel is negative. - Patient is on Amiodarone. Given elevated LFTs, I d/c'ed Amiodarone on 03/19. #BPH: Avery catheter to be placed. #Hyperglycemia: F/u A1c. Monitor BG #CAD #4.7cm Ascending Thoracic aortic aneurysm - noted on 03/11/2024 CT chest #4.3cm Infrarenal abdominal aortic aneurysm - noted on 03/11/2024 CT chest #Hx of alcohol use d/o - Unclear if he still drinks. Monitor. #Akathisia - Noted during his last 2? hospitalizations. - Consider referral to Neurology on discharge #Compression fracture of T6-T8 and T10 fracture noted on 03/18 CTA chest. #Moderate vs severe malnutrition: Filter Tank Tender Helper Head consulted. #Goals of care discussion: Given his intolerance to BiPAP and his ABG. Per sister, the patient has had pna for the last month and they do not seem to ever have it cleared up. Per sister, patient has end stage COPD, so they are aware of his predicament. I informed her he has Influenza A & that we have started medication to help him relax and hopefully tolerate COPD; however, if he is still unable to tolerate BiPAP, comfort care, may be the next step. She stated that she would notify his son who lives in [facility]. The son Sharath called from [place]. I updated him on the patient's status and predicament. I informed him that we are attempting to use Precedex to help the patient tolerate BiPAP and if BiPAP fails, comfort care may have to be considered. He will start driving to the hospital from [place]. His phone number is [phone]. His 's number Blanca is [phone]. I have spoken with the ICU nurse and charge nurse to allow the patient to the ICU whenever he arrives tonight or in the morning. Around 3pm: The patient's nurse is stating that he is unable to titrate the Precedex past 0.4 b/c the patient becames hypotensive to SBP of 70s and bradycardic. Will d/c Precedex at this time. I have informed the patient's son's , Blanca of the patient's situation. Will continue to update. Code status: DNR/DNI Attestations 2 Medical Necessity Statement*: Patient is requiring BiPAP and needs to remain in the ICU at this time. He is expected to remain hospitalized for >2 midnights. Coding Level of Care Code Critical Care >/= 30 minutes Diagnoses Anxiety and depression F41.9; F32.A Chronic diastolic congestive heart failure I50.32 Heart failure chronicity: chronic Heart failure type: diastolic Coronary artery disease involving quechan coronary artery of quechan heart without angina pectoris I25.10 Associated angina: without angina Coronary Disease-Associated Artery/Lesion type: quechan artery [place] vs. transplanted heart: quechan heart Dyslipidemia E78.5 Benign prostatic hyperplasia with incomplete bladder emptying N40.1; R39.14 Lower urinary tract symptom detail: incomplete bladder emptying Lower urinary tract symptom presence: symptoms present Influenza A J10.1 Acute exacerbation of chronic obstructive airways disease J44.1 Acute on chronic respiratory failure with hypoxia and hypercapnia J96.21; J96.22 Influenza A with pneumonia J09.X1 Transaminitis R74.01
--- NOTE | 2024-03-19 07:47 | PC.NURSE ---
Addendum entered by Victor Manuel Montes RN 03/19/24 11:28: At approximately 1020, patient had become lethargic and would not resist bipap placement. Nurse placed bipap on patient. about 40 minutes later, patient woke up and removed bipap. Attempts at placing bipap back on were met with resistance. WHen nurse explained to the patient that the bipap is necessary to bring his CO2 levels down and if we cannot fix his CO2 levels he will get worse. Possibly from respiratory failure if CO2 levels get high enough. Patient responded to teaching by telling the nurse Fuck you . Original Note: Patient has woken up enough to become agitated again (see previous note). He now keeps pulling off the bipap. NUrse alered Dr bullock to mental status and inability to keep bipap on. Received ordered for precedex and an ABG.
[2024-03-19] MEDS: dexmedeTOMIDine 0.9 % NaCL 400 MCG/100 ML PREMIX IV (08:04)
[2024-03-19] MEDS: aspirin 81 mg EC Tablet PO (08:05)
[2024-03-19] MEDS: clopidogrel 75 mg Tablet PO (08:05)
[2024-03-19] MEDS: BuSPIRONE 10 mg Tablet 5 MG PO ×2 (08:05→17:27)
[2024-03-19] MEDS: amiodarone 200 mg Tablet 400 MG PO (08:05)
[2024-03-19] MEDS: magnesium lactate 84 mg Tablet PO (08:05)
[2024-03-19] MEDS: iron polysaccharide complex 150 mg Capsule PO ×2 (08:05→17:27)
[2024-03-19] MEDS: oseltamivir phosphate 75 mg Capsule PO ×2 (08:05→17:27)
[2024-03-19] MEDS: atorvastatin 40 mg Tablet PO (08:05)
[2024-03-19 08:16] LABS: Bilirubin Urine Negative (Negative); Blood Urine Negative (Negative); Glucose Urine UA Negative (Normal); Ketones Urine Negative (Negative); Leukocyte Esterase Urine Negative (Negative); Nitrate Urine Negative (Negative); Protein Urine 1+ (Negative); Urine Appearance Clear (CLEAR); Urine Color Yellow (Yellow); Urobilinogen Urine 0.2 mg/dL (Negative)
[2024-03-19 08:19] LABS: Add Urine Microscopic? YES; Bacteria Urine None Seen /hpf; Hyaline Casts Urine 10.73 /lpf; RBC Urine 0-2 /hpf (0-2); Squamous Epithelial Cell Urine 0-5 /hpf (0-5); WBC Urine 0-5 /hpf (0-5)
[2024-03-19] MEDS: cyanocobalamin 1,000 mcg Tablet 1000 MCG PO (08:23)
[2024-03-19] MEDS: thiamine 100 mg Tablet PO (08:23)
[2024-03-19] MEDS: multivitamin therapeutic Tablet 1 TAB PO (08:23)
--- NOTE | 2024-03-19 08:24 | PHA.VACGOAL ---
Vancomycin Goal - Goal Vancomycin Goal:: 15-20 mg/L Vancomycin Indication:: Pneumonia - Therapy Current therapy:: Meropenem Day of therpy:: Day []of [] . Actual body weight (kg): 161 lb 13.109 oz - Data Labs: WBC 8.83 10^3/uL (3.29-11.43) 03/19/24 02:11 RBC 4.05 10^6/uL (3.85-5.65) 03/19/24 02:11 Hgb 12.40 g/dL (11.27-16.99) 03/19/24 02:11 Hct 40.7 % (37-53) 03/19/24 02:11 MCV 100.5 fl (82-101) 03/19/24 02:11 MCH 30.6 pg (27-33) 03/19/24 02:11 MCHC 30.5 g/dL (30-55) 03/19/24 02:11 RDW 17.2 % (12.1-15.1) H 03/19/24 02:11 Sodium 139 mmol/L (136-145) 03/19/24 02:11 Potassium 4.5 mmol/L (3.5-5.1) 03/19/24 02:11 Chloride 98 mmol/L (98-107) 03/19/24 02:11 Carbon Dioxide 30 mmol/L (22-29) H 03/19/24 02:11 Anion Gap 15.5 (5-19) 03/19/24 02:11 BUN 35 mg/dL (8-23) H 03/19/24 02:11 Creatinine 1.1 mg/dL (0.7-1.2) 03/19/24 02:11 GFR Calculation Not Reportable 03/19/24 02:11 Last dialysis session:: N/A Treatment plan:: new consult Regimen:: TELEPHARMACY: PATIENT RECEIVED 1g LOADING DOSE IN ER MAINTENANCE DOSE OF 750 mg Q24H Follow up:: WILL CONTINUE TO MONITOR AND FOLLOW UP DAILY
[2024-03-19 08:34] LABS: Specific Gravity, Urine 1.056 (1.005-1.030)
[2024-03-19 08:35] LABS: Mucus Urine TRACE /hpf
[2024-03-19 08:43] LABS: NT Pro B Type Natriuretic Pept 32993 pg/mL (0-450)
[2024-03-19] MEDS: budesonide 0.5 mg/2 mL Neb INHALATION ×2 (08:49→20:41)
[2024-03-19 09:18] LABS: Hepatitis B Core AB, Total Non-Reactive (Nonreactive)
[2024-03-19 09:26] LABS: ABG PH Result 7.27 (7.35-7.45); Alveolar-Arterial Oxygen Gradi 7.7 mmHg (5-10); Arterial Blood Gas Hematocrit 38.1 % (42-52); Base Excess ABG 2.4 mmol/L (-2.0-2.0); Blood Gas Allen Test Pos; Blood Gas Operator Identificat BROMA; Blood Gas Sample Site Radial, right; Blood Gas Sample Type Arterial; Carboxyhemoglobin 1.7 %THgb (0.4-20.1); HCO3 ABG 31.1 mmol/L (22-26); Ionized Calcium Level - ABG 1.2 mmol/L (1.1-1.4); Methemoglobin 1.2 % (0.4-1.5); Oxygen Device NC; Oxygen Saturation ABG 98.9; PO2 FiO2 Ratio Arterial Blood 325; Potassium Level - ABG 4.3 mmol/L (3.5-5.0); Total Hemoglobin 12.4 g/dL (14-18)
[2024-03-19] MEDS: meropenem 1,000 mg SDV 1000 MG IVP ×2 (09:51→21:55)
[2024-03-19] MEDS: methylPREDNISolone sod succ 40 mg/mL INJ 60 MG IVP (12:27)
[2024-03-19] MEDS: AZITHROMYCIN ADD-Vantage 500 MG in 0.9% NaCl ADD-Vantage 250 ML 250 MG IV (12:27)
[2024-03-19] MEDS: FUROsemide 10 mg/mL SDV 10mL 60 MG IVP (12:36)
[2024-03-19 13:00] LABS: ABG PCO2 68.6 mmHg (35-45)
--- NOTE | 2024-03-19 15:36 | PC.NURSE ---
While patient was on precedex, he would tolerate the bipap. However, after about an hour on precedex, his heart rate and blood pressure drop, requiring precedex to be turned down and the patient then wakes up agitated and refuses to keep bipap on. Nurse tried using precedex again, but results were the same. Over the last 8 hours, patient has only worn bipap for about an hour and a half total, spread out over multiple sessions. Patient conitnues to be lethargic, mumbled speech, but still oriented to person, place, and time. Nurse alerted Dr Chauhan to this. Received orders to discontinue precedex, attempt to get the patient to wear bipap whenever he is agreeable, continue to monitor.
[2024-03-19 16:47] LABS: Partial Thromboplastin Time 59.2 SECONDS (23.9-36.7)
[2024-03-19] MEDS: tamsulosin 0.4 mg Capsule 0.8 MG PO (17:27)
[2024-03-19] MEDS: gabapentin 300 mg Capsule PO (17:27)
--- NOTE | 2024-03-19 18:27 | PC.NURSE ---
Shift summary: PCO2 form 0900 blood gas was 68.6. Patient has refused bipap all day. There were brief periods where patient allowed bipap while on precedex, but precedex was discontinued due to associated bradycardia and hypotension. Total time on bipap was about 1.5 hours. Patient's mental status continues to be altered. He can answer person, place, time, and situation questions, but he is very lethargic. During periods of extreme lethargy, patient will allow bipap, but about about 40 minutes on bipap he will become more alert, angry, and will then refuse bipap. Dr Lazar had a discussion with his son and regarding goals of care. Family will be coming in later tonight.
[2024-03-19] MEDS: pantoprazole 40 mg SDV IVP (21:55)
[2024-03-19] MEDS: morphine 4 mg/mL SDV 1 mL 1 MG IVP (21:55)
[2024-03-19] MEDS: metoprolol tartrate 25 mg Tablet 12.5 MG PO (21:56)
[2024-03-19] MEDS: VANCOMYCIN ADD-Vantage 750 MG in 0.9% NaCl ADD-Vantage 250 ML 250 MG IV (23:44)
[2024-03-20] VITALS (50 sets, daily range): BP systolic 88–162; BP diastolic 57–119; PULSE 62–119; RESP 15–31; TEMP 36.3–36.9; O2SAT 87–100
[2024-03-20 00:04] LABS: Partial Thromboplastin Time 56.2 SECONDS (23.9-36.7)
[2024-03-20] MEDS: ipratropium-albuterol 3 mL Neb INHALATION ×5 (02:16→21:42)
[2024-03-20] MEDS: morphine 4 mg/mL SDV 1 mL 1 MG IVP ×2 (03:00→23:35)
[2024-03-20 07:21] LABS: Partial Thromboplastin Time 58.5 SECONDS (23.9-36.7)
[2024-03-20 07:42] LABS: Estmated Average Glucose 94; Hemoglobin A1C 4.9 % (4.0-6.0)
[2024-03-20 08:02] LABS: Glucose Point of Care 108 mg/dL (70-110)
[2024-03-20] MEDS: budesonide 0.5 mg/2 mL Neb INHALATION ×2 (08:27→21:42)
[2024-03-20] MEDS: thiamine 100 mg Tablet PO (08:56)
[2024-03-20] MEDS: iron polysaccharide complex 150 mg Capsule PO ×2 (08:56→17:18)
[2024-03-20] MEDS: BuSPIRONE 10 mg Tablet 5 MG PO ×2 (08:56→17:17)
[2024-03-20] MEDS: cyanocobalamin 1,000 mcg Tablet 1000 MCG PO (08:56)
[2024-03-20] MEDS: magnesium lactate 84 mg Tablet PO (08:56)
[2024-03-20] MEDS: multivitamin therapeutic Tablet 1 TAB PO (08:56)
[2024-03-20] MEDS: aspirin 81 mg EC Tablet PO (08:56)
[2024-03-20] MEDS: atorvastatin 40 mg Tablet PO (08:57)
[2024-03-20] MEDS: clopidogrel 75 mg Tablet PO (08:57)
[2024-03-20] MEDS: meropenem 1,000 mg SDV 1000 MG IVP ×2 (08:57→23:17)
[2024-03-20] MEDS: oseltamivir phosphate 75 mg Capsule PO ×2 (08:57→17:18)
[2024-03-20] MEDS: AZITHROMYCIN ADD-Vantage 500 MG in 0.9% NaCl ADD-Vantage 250 ML 250 MG IV ×2 (10:35→23:19)
[2024-03-20] MEDS: heparin drip 25,000 UNIT/500 ML PREMIX 15 UNIT IV (10:36)
[2024-03-20] MEDS: metoprolol tartrate 25 mg Tablet 12.5 MG PO ×2 (10:36→23:17)
[2024-03-20 11:27] LABS: Glucose Point of Care 111 mg/dL (70-110)
[2024-03-20] MEDS: methylPREDNISolone sod succ 40 mg/mL INJ 60 MG IVP (12:50)
[2024-03-20 13:33] LABS: Partial Thromboplastin Time 61.2 SECONDS (23.9-36.7)
--- NOTE | 2024-03-20 14:43 | PC.SOCIAL ---
IMM Updated Updated pt on IMM. No questions voiced. Provided pt a copy. Initialed, dated, & timed a copy & placed in chart.
[2024-03-20] MEDS: acetaminophen 325 mg Tablet 650 MG PO ×2 (15:05→21:00)
[2024-03-20 17:15] LABS: Glucose Point of Care 119 mg/dL (70-110)
[2024-03-20] MEDS: gabapentin 300 mg Capsule PO (17:18)
[2024-03-20] MEDS: tamsulosin 0.4 mg Capsule 0.8 MG PO (17:18)
--- NOTE | 2024-03-20 17:48 | P.PN_ITS ---
Subjective 2 Subjective: Patient is alert awake and oriented today. Clinically appears to be doing better. Does not require BiPAP. States that he typically does not use BiPAP as it makes him claustrophobic. Family and patient inquiring about switch to hospice. Medications: Reviewed: Yes Vitals/I&O/Wt Last Vital Signs Temp 98.5 F 03/20/24 04:00 Pulse 75 03/20/24 16:30 Resp 29 H 03/20/24 16:30 BP 122/75 03/20/24 16:30 Pulse Ox 88 L 03/20/24 16:30 O2 Del Method Nasal Cannula 03/20/24 15:40 O2 Flow Rate 2 03/20/24 15:40 FiO2 28 03/19/24 12:05 03/20/24 03/20/24 03/20/24 06:59 14:59 22:59 Intake Total 941 / 1721.047 260.967 / 260.967 Output Total 400 / 1000 Balance 541 / 721.047 260.967 / 260.967 Weight last 48 hrs Weight 74.686 kg Weight 73.4 kg Weight 76 kg Weight 76 kg Physical Exam 2 Narrative: General: No acute distress, AO x3, chronically ill appearing HEENT: PERRLA, pupils bilaterally equal and reactive, pallors not present Chest: Normal vesicular breath sounds, no added sounds, equal good air entry bilaterally CVS: S1-S2 regular, no murmurs, no tachycardia, no gallops, no rubs Abdomen: Soft, nontender, no organomegaly, bowel sounds present Neuro: No focal deficits, no facial deformity, AO x3, power 5/5 in all limbs Urinary Catheter Management: Ashley: Cath Placed During This Visit: yes Reason for Continuing Indwelling Catheter: Accurate Measurement of Urinary Output in Critically Ill Patients Urinary Catheter Date of Insertion: 03/19/24 Urinary Catheter Time of Insertion: 13:37 Data 03/19/24 02:11 03/19/24 02:11 Micro: Microbiology 03/18/24 20:26 Blood Culture - Preliminary Blood NEGATIVE TO DATE 03/18/24 20:15 Blood Culture - Preliminary Blood NEGATIVE TO DATE A&P Assessment and plan (1) Acute exacerbation of chronic obstructive airways disease: (2) Acute on chronic hypoxic respiratory failure: (3) Pneumonia: (4) Influenza A: Plan Acute hypoxic respiratory failure ? Multifactorial ? Secondary to COPD ? Influenza A ? Healthcare associated pneumonia ? Plan ? Monitor respiratory status closely ? Encourage BiPAP use ? Tamiflu ? Vancomycin ? Meropenem # DuoNeb # Budesonide ? Solu-Medrol ? Monitor respiratory status closely # Patient is DNR/DNI, confirmed with patient multiple times # Lovenox for DVT prophylaxis History of CHF, check BMP Transaminitis, monitor Akathisia, monitor History of anemia, monitor hemoglobin CKD, monitor 02/19/2024 Patient is awake alert and oriented today. Seems to be clinically doing better. We will continue treatment for influenza pneumonia. Continue Tamiflu. Continue ceftriaxone and azithromycin. Patient and family are interested in transitioning to hospice and Levophed close multiple comorbidities. Patient does not use BiPAP at home stating that he feels extremely claustrophobic. States he is unlikely to use it after discharge either. Hospice referral has been generated, family would like to talk some more about their options before coming to final conclusion. His son has traveled from out of state. His sister is Currently at bedside additionally. Both state that his sister would be better suited to making decisions for the patient should he become obtunded again. Negative serial tropinin deltas. Likely demand ischemia. D/c heparin drip later today. Attestations 2 Medical Necessity Statement*: continued admission for treatment of pneumonia, C discussion Coding Level of Care Code Acute Code for Chg Fwd High MDM includes number and complexity of problems actively addressed during encounter, amount and/or complexity of data reviewed/ordered and described risk of complication, morbidity or mortality of management as documented Diagnoses Acute exacerbation of chronic obstructive airways disease J44.1 Acute on chronic hypoxic respiratory failure J96.21 Pneumonia J18.9 Influenza A J10.1
[2024-03-20 20:24] LABS: Partial Thromboplastin Time 52.5 SECONDS (23.9-36.7)
--- NOTE | 2024-03-20 22:00 | PC.NURSE ---
Upon entering pt room the morning dose of vancomycin was full and not infused. Dr. Rothman notified, new order to retime vancomycin for
--- NOTE | 2024-03-20 22:00 | PC.NURSE ---
Went in pt room to hang azithromycin and previous dose was still full and not infused. Notified Dr. Rothman new to give dose now and retime. Pharmacy notified and new dose ordered and hung.
[2024-03-20] MEDS: pantoprazole 40 mg SDV IVP (23:17)
[2024-03-20] MEDS: VANCOMYCIN ADD-Vantage 750 MG in 0.9% NaCl ADD-Vantage 250 ML 250 MG IV (23:18)
[2024-03-21] VITALS (37 sets, daily range): BP systolic 82–154; BP diastolic 54–109; PULSE 65–128; RESP 15–25; TEMP 36.2–36.9; O2SAT 86–100; BMI 22.4
[2024-03-21 05:42] LABS: Basophils % 0.1 %; Hematocrit 36.2 % (37-53); Lymphocytes # 0.3 10^3/uL (0.8-4.8); Lymphocytes % 3.5 %; Mean Corpuscular HGB Conc 30.9 g/dL (30-55); Mean Corpuscular Hemoglobin 30.4 pg (27-33); Mean Corpuscular Volume 98.1 fl (82-101); Mean Platelet Volume 9.8 fL (7.4-10.4); Monocytes # 0.5 10^3/uL (0.2-0.9); Monocytes % 5.5 %; Neutrophils # 7.56 10^3/uL (1.8-7.7); Neutrophils % 90.3 %; Nucleated Red Blood Cells % 0 %; Platelet Count 200 10^3/cmm (157-399); Red Blood Count 3.69 10^6/uL (3.85-5.65); Red Cell Distribution Width 16.8 % (12.1-15.1); White Blood Count 8.37 10^3/uL (3.29-11.43)
[2024-03-21 05:52] LABS: Partial Thromboplastin Time 59.9 SECONDS (23.9-36.7)
[2024-03-21 06:00] LABS: Alanine Aminotransferase 297 U/L (0-41); Alkaline Phosphatase 156 U/L (40-130); Anion Gap 12.7 (5-19); Aspartate Amino Transferase 261 U/L (0-40); Blood Urea Nitrogen 44 mg/dL (8-23); Calcium 8.1 mg/dL (8.5-10.5); Carbon Dioxide 32 mmol/L (22-29); Chloride 93 mmol/L (98-107); Creatinine Clr Calc Pharmacy 70.2491; Globulin 2.5 g/dL (1.3-4.6); Glucose 99 mg/dL (65-115); Osmolality Calculated 287 mOsm/kg (285-295); Potassium 4.7 mmol/L (3.5-5.1); Sodium 133 mmol/L (136-145); Total Bilirubin 0.7 mg/dL (0.15-1.2); Total Protein 5.5 g/dL (6.6-8.7)
[2024-03-21] MEDS: budesonide 0.5 mg/2 mL Neb INHALATION ×2 (08:22→21:50)
[2024-03-21] MEDS: ipratropium-albuterol 3 mL Neb INHALATION ×3 (08:22→21:50)
[2024-03-21] MEDS: oseltamivir phosphate 75 mg Capsule PO ×2 (09:34→17:04)
[2024-03-21] MEDS: multivitamin therapeutic Tablet 1 TAB PO (09:34)
[2024-03-21] MEDS: atorvastatin 40 mg Tablet PO (09:34)
[2024-03-21] MEDS: magnesium lactate 84 mg Tablet PO (09:34)
[2024-03-21] MEDS: aspirin 81 mg EC Tablet PO (09:34)
[2024-03-21] MEDS: BuSPIRONE 10 mg Tablet 5 MG PO ×2 (09:34→17:04)
[2024-03-21] MEDS: clopidogrel 75 mg Tablet PO (09:34)
[2024-03-21] MEDS: cefTRIAXone 1,000 mg SDV 1000 MG IVP (09:35)
[2024-03-21] MEDS: morphine 4 mg/mL SDV 1 mL 2 MG IVP ×3 (09:35→17:41)
[2024-03-21] MEDS: metoprolol tartrate 25 mg Tablet 12.5 MG PO (09:37)
--- NOTE | 2024-03-21 12:10 | PM.PN ---
Subjective Subjective: patient noted to be tachypneic this morning. He is having a hard time completing sentences. Does not wish to wear his BiPAP as it makes him feel extremely claustrophobic. Medications: Reviewed: Yes Vitals/I&O/Wt Last Vital Signs Temp 97.2 F L 03/21/24 04:00 Pulse 78 03/21/24 10:00 Resp 17 03/21/24 10:00 BP 146/91 03/21/24 10:00 Pulse Ox 98 03/21/24 10:00 O2 Del Method Nasal Cannula 03/21/24 08:10 O2 Flow Rate 3 03/21/24 08:10 FiO2 3 03/20/24 23:30 03/20/24 03/21/24 03/21/24 22:59 06:59 14:59 Intake Total 967.75 / 1228.717 610.6 / 1839.317 Output Total 300 / 300 200 / 500 Balance 667.75 / 928.717 410.6 / 1339.317 Weight last 48 hrs Weight 77 kg Weight 74.686 kg Physical Exam Narrative: General: No acute distress, AO x3, chronically ill appearing HEENT: PERRLA, pupils bilaterally equal and reactive, pallors not present Chest: Normal vesicular breath sounds, no added sounds, equal good air entry bilaterally CVS: S1-S2 regular, no murmurs, no tachycardia, no gallops, no rubs Abdomen: Soft, nontender, no organomegaly, bowel sounds present Neuro: No focal deficits, no facial deformity, AO x3, power 5/5 in all limbs Extremities: Bilateral lower extremity diffuse peripheral artery disease. Blue-purple mottling to bilateral lower extremities right foot is much worse than left. Patient states this has been longstanding but does appear to be getting worse more recently. Urinary Catheter Management: Ashley: Cath Placed During This Visit: yes Reason for Continuing Indwelling Catheter: Accurate Measurement of Urinary Output in Critically Ill Patients Urinary Catheter Date of Insertion: 03/19/24 Urinary Catheter Time of Insertion: 13:37 Data 03/21/24 05:02 03/21/24 05:02 A&P Assessment and plan (1) Acute exacerbation of chronic obstructive airways disease: (2) Acute on chronic hypoxic respiratory failure: (3) Pneumonia: (4) Influenza A: Plan Acute hypoxic respiratory failure ? Multifactorial ? Secondary to COPD ? Influenza A ? Healthcare associated pneumonia ? Plan ? Monitor respiratory status closely ? Encourage BiPAP use ? Tamiflu ? Vancomycin ? Meropenem # DuoNeb # Budesonide ? Solu-Medrol ? Monitor respiratory status closely # Patient is DNR/DNI, confirmed with patient multiple times # Lovenox for DVT prophylaxis History of CHF, check BMP Transaminitis, monitor Akathisia, monitor History of anemia, monitor hemoglobin CKD, monitor 02/19/2024 Patient is awake alert and oriented today. Seems to be clinically doing better. We will continue treatment for influenza pneumonia. Continue Tamiflu. Continue ceftriaxone and azithromycin. Patient and family are interested in transitioning to hospice and Levophed close multiple comorbidities. Patient does not use BiPAP at home stating that he feels extremely claustrophobic. States he is unlikely to use it after discharge either. Hospice referral has been generated, family would like to talk some more about their options before coming to final conclusion. His son has traveled from out of state. His sister is Currently at bedside additionally. Both state that his sister would be better suited to making decisions for the patient should he become obtunded again. Negative serial tropinin deltas. Likely demand ischemia. D/c heparin drip later today. 02/20/2024 Patient is alert and awake. However he is having a harder time breathing compared to yesterday. Unable to complete full sentences. Had an extensive goals of care discussion with him this morning. Patient states that he would not like any further escalation in care. Discussed with him his wish to transition to hospice care. He understands that he probably only has weeks to months to live. He has extensive peripheral artery disease, bilateral lower extremity with very poor peripheral circulation. Concerned that the right lower extremity may progress to gangrene. Currently also is showing signs of type II [place], he does not want any further interventions on his heart. States that he would just like treatment for the pneumonia for now, continue respiratory care with regards to nebulization and antibiotics, however does not want to remain on BiPAP. If his respiratory status continues to deteriorate, he wishes to be transition to comfort care management only. For now we are adding as needed morphine and as needed Ativan to alleviate some of his air hunger. Patient exhibits understanding and is able to repeat back to me the risk of respiratory depression with morphine and Ativan, he states he understands that he may pass in his sleep, and has made peace with the fact that it is his time. He wants to prioritize comfort over other things at this point in time. Disposition planning ongoing for discharge to home vs SNF with hospice. Care plan discussed with sister Misty and son Sharath at bedside. Transfer to med/surg. Continue iv abx- d/c vanc as not MRSA. Narrow meropenem to ceftriaxone. continue tamiflu Attestations Medical Necessity Statement*: Transfer to med/surg, [facility] discussion as noted above, continue abx. Coding Level of Care Code Acute Code for Chg Fwd High MDM includes number and complexity of problems actively addressed during encounter, amount and/or complexity of data reviewed/ordered and described risk of complication, morbidity or mortality of management as documented Diagnoses Acute exacerbation of chronic obstructive airways disease J44.1 Acute on chronic hypoxic respiratory failure J96.21 Pneumonia J18.9 Influenza A J10.1
[2024-03-21] MEDS: methylPREDNISolone sod succ 40 mg/mL INJ 60 MG IVP (12:42)
[2024-03-21 13:18] LABS: Partial Thromboplastin Time 26.2 SECONDS (23.9-36.7)
[2024-03-21] MEDS: artificial tears Op Soln 15 mL Btl 1 DROP EYE-BOTH (14:38)
[2024-03-21] MEDS: tamsulosin 0.4 mg Capsule 0.8 MG PO (17:04)
[2024-03-21] MEDS: LORazepam 2 mg/mL INJ 1 mL 1 MG IVP (19:37)
--- NOTE | 2024-03-21 23:08 | PC.NURSE ---
Patient was given 1mg of lorazepam at 1973 due to restlessness. Nurse tried to wake patient at 2200 to administer po metoprolol. Patient was unable to keep eyes open so nurse did not administer medication.
[2024-03-22] VITALS (10 sets, daily range): BP systolic 110–124; BP diastolic 61–79; PULSE 71–130; RESP 16–24; TEMP 36.3–37; O2SAT 78–99
[2024-03-22] MEDS: morphine 4 mg/mL SDV 1 mL 2 MG IVP ×4 (02:56→23:56)
[2024-03-22] MEDS: LORazepam 2 mg/mL INJ 1 mL 1 MG IVP (05:44)
[2024-03-22] MEDS: budesonide 0.5 mg/2 mL Neb INHALATION (08:08)
[2024-03-22] MEDS: ipratropium-albuterol 3 mL Neb INHALATION ×3 (08:17→16:02)
[2024-03-22] MEDS: BuSPIRONE 10 mg Tablet 5 MG PO ×2 (09:17→18:11)
[2024-03-22] MEDS: clopidogrel 75 mg Tablet PO (09:17)
[2024-03-22] MEDS: atorvastatin 40 mg Tablet PO (09:17)
[2024-03-22] MEDS: cefTRIAXone 1,000 mg SDV 1000 MG IVP (09:18)
[2024-03-22] MEDS: aspirin 81 mg EC Tablet PO (09:18)
[2024-03-22] MEDS: oseltamivir phosphate 75 mg Capsule PO ×2 (09:18→18:11)
[2024-03-22] MEDS: metoprolol tartrate 25 mg Tablet 12.5 MG PO ×2 (10:52→23:47)
--- NOTE | 2024-03-22 12:10 | PC.SOCIAL ---
IMM updated IMM dated and initialed, copy given to patient and copy placed in chart.
--- NOTE | 2024-03-22 15:31 | P.PN_ITS ---
Subjective 2 Subjective: son reports that he has had intemitent hallucinations and confusion such as mistkaing bed to be a person, etc. HE is currently asleep after having received morphine. PEr nursing report he was experiencing air hunger earlier. Medications: Reviewed: Yes Vitals/I&O/Wt Last Vital Signs Temp 97.8 F 03/22/24 15:24 Pulse 71 03/22/24 15:24 Resp 17 03/22/24 15:24 BP 118/74 03/22/24 15:24 Pulse Ox 96 03/22/24 15:24 O2 Del Method Nasal Cannula 03/22/24 15:24 O2 Flow Rate 4 03/21/24 23:59 FiO2 3 03/20/24 23:30 03/22/24 03/22/24 03/22/24 06:59 14:59 22:59 Intake Total 360 / 360 Output Total 800 / 1400 Balance -800 / -1030 359 / 359 Weight last 48 hrs Weight 79.152 kg Weight 77 kg Physical Exam 2 Narrative: General: No acute distress, AO x3, chronically ill appearing HEENT: PERRLA, pupils bilaterally equal and reactive, pallors not present Chest: Normal vesicular breath sounds, no added sounds, equal good air entry bilaterally CVS: S1-S2 regular, no murmurs, no tachycardia, no gallops, no rubs Abdomen: Soft, nontender, no organomegaly, bowel sounds present Neuro: No focal deficits, no facial deformity, AO x3, power 5/5 in all limbs Extremities: Bilateral lower extremity diffuse peripheral artery disease. Blue- purple mottling to bilateral lower extremities right foot is much worse than left. Patient states this has been longstanding but does appear to be getting worse more recently. Urinary Catheter Management: Ashley: Cath Placed During This Visit: yes Reason for Continuing Indwelling Catheter: Hospice/Comfort/Palliative Care Urinary Catheter Date of Insertion: 03/19/24 Urinary Catheter Time of Insertion: 13:37 Data 03/21/24 05:02 03/21/24 05:02 A&P Assessment and plan (1) Acute exacerbation of chronic obstructive airways disease: (2) Acute on chronic hypoxic respiratory failure: (3) Pneumonia: (4) Influenza A: Plan Acute hypoxic respiratory failure ? Multifactorial ? Secondary to COPD ? Influenza A ? Healthcare associated pneumonia ? Plan ? Monitor respiratory status closely ? Encourage BiPAP use ? Tamiflu ? Vancomycin ? Meropenem # DuoNeb # Budesonide ? Solu-Medrol ? Monitor respiratory status closely # Patient is DNR/DNI, confirmed with patient multiple times # Lovenox for DVT prophylaxis History of CHF, check BMP Transaminitis, monitor Akathisia, monitor History of anemia, monitor hemoglobin CKD, monitor 02/19/2024 Patient is awake alert and oriented today. Seems to be clinically doing better. We will continue treatment for influenza pneumonia. Continue Tamiflu. Continue ceftriaxone and azithromycin. Patient and family are interested in transitioning to hospice and Levophed close multiple comorbidities. Patient does not use BiPAP at home stating that he feels extremely claustrophobic. States he is unlikely to use it after discharge either. Hospice referral has been generated, family would like to talk some more about their options before coming to final conclusion. His son has traveled from out of state. His sister is Currently at bedside additionally. Both state that his sister would be better suited to making decisions for the patient should he become obtunded again. Negative serial tropinin deltas. Likely demand ischemia. D/c heparin drip later today. 02/20/2024 Patient is alert and awake. However he is having a harder time breathing compared to yesterday. Unable to complete full sentences. Had an extensive goals of care discussion with him this morning. Patient states that he would not like any further escalation in care. Discussed with him his wish to transition to hospice care. He understands that he probably only has weeks to months to live. He has extensive peripheral artery disease, bilateral lower extremity with very poor peripheral circulation. Concerned that the right lower extremity may progress to gangrene. Currently also is showing signs of type II [place], he does not want any further interventions on his heart. States that he would just like treatment for the pneumonia for now, continue respiratory care with regards to nebulization and antibiotics, however does not want to remain on BiPAP. If his respiratory status continues to deteriorate, he wishes to be transition to comfort care management only. For now we are adding as needed morphine and as needed Ativan to alleviate some of his air hunger. Patient exhibits understanding and is able to repeat back to me the risk of respiratory depression with morphine and Ativan, he states he understands that he may pass in his sleep, and has made peace with the fact that it is his time. He wants to prioritize comfort over other things at this point in time. Disposition planning ongoing for discharge to home vs SNF with hospice. Care plan discussed with sister Misty and lina Early at bedside. Transfer to med/surg. Continue iv abx- d/c vanc as not MRSA. Narrow meropenem to ceftriaxone. continue tamiflu 02/21/2024: Patient has had intermittent hallucinations and confusion. prn morphine appears to help with air hunger but does not last for 4 hr interval. will make morphine more frequent today. GOC discussed with lina Early at bedside and Lina Pfeiffer over the phone. They are in agreement with hospice care. We will plan to complete a 5 day course of antivirals and antibiotics and then focud purely on patient's comfort from there on. Transition to comfort care management is being considered at the end of abx course. Patient had made his wishes clear on extensive discussion yesterday- he would like to breather better and understood his poor prognosis. Will discontinue high dose steroids as likely contributing to delirium. D/c ASA, Plavix to minimize oral medications, transition to hospice. Pending hospice to review referral , transition to inpatient hospice vs discharge with hospice Attestations 2 Medical Necessity Statement*: ongoing disposition planning Coding Level [facility] Code [facility] Diagnoses Acute exacerbation of chronic obstructive airways disease J44.1 Acute on chronic hypoxic respiratory failure J96.21 Pneumonia J18.9 Influenza A J10.1
[2024-03-22] MEDS: tamsulosin 0.4 mg Capsule 0.8 MG PO (18:11)
[2024-03-23] VITALS (13 sets, daily range): BP systolic 107–117; BP diastolic 68–79; PULSE 66–88; RESP 15–32; TEMP 36.3–36.9; O2SAT 89–100
[2024-03-23] MEDS: morphine 4 mg/mL SDV 1 mL 2 MG IVP ×3 (03:20→16:14)
[2024-03-23] MEDS: LORazepam 2 mg/mL INJ 1 mL 1 MG IVP (04:41)
[2024-03-23] MEDS: ipratropium-albuterol 3 mL Neb INHALATION ×4 (04:52→12:00)
[2024-03-23] MEDS: oseltamivir phosphate 75 mg Capsule PO (09:30)
[2024-03-23] MEDS: cefTRIAXone 1,000 mg SDV 1000 MG IVP (09:30)
[2024-03-23] MEDS: BuSPIRONE 10 mg Tablet 5 MG PO (09:30)
[2024-03-23] MEDS: metoprolol tartrate 25 mg Tablet 12.5 MG PO (09:31)
[2024-03-23] MEDS: morphine 4 mg/mL SDV 1 mL IVP ×5 (15:08→23:22)
[2024-03-23] MEDS: atropine 1% op soln 2 mL Btl 2 DROP SUBLINGUAL (16:19)
--- NOTE | 2024-03-23 17:12 | P.PN_ITS ---
Subjective 2 Subjective: Patient seen and assessed this morning at around 11 AM with son at bedside and rest of the family arriving later. He appears to be currently uncomfortable. He is tachypneic. Struggling to keep sentences. States his breathing is not as good as he would like it . Medications: Reviewed: Yes Vitals/I&O/Wt Last Vital Signs Temp 97.7 F 03/23/24 15:34 Pulse 66 03/23/24 15:34 Resp 16 03/23/24 15:34 BP 113/75 03/23/24 15:34 Pulse Ox 99 03/23/24 15:34 O2 Del Method Nasal Cannula 03/23/24 15:34 O2 Flow Rate 6 03/23/24 11:29 FiO2 3 03/20/24 23:30 03/23/24 03/23/24 03/23/24 06:59 14:59 22:59 Intake Total 120 / 691.65 450 / 450 Output Total 100 / 1101 50 / 50 Balance 20 / -409.35 400 / 400 Weight last 48 hrs Weight 79.288 kg Weight 79.152 kg Physical Exam 2 Narrative: General: Currently appears to be uncomfortable. He is tachypneic. Struggling to keep sentences going. Takes a deep breaths. States his breathing is not comfortable at this present time. Urinary Catheter Management: Ashley: Cath Placed During This Visit: yes Reason for Continuing Indwelling Catheter: Acute Urinary Retention or Obstruction Urinary Catheter Date of Insertion: 03/19/24 Urinary Catheter Time of Insertion: 13:37 Data 03/21/24 05:02 03/21/24 05:02 A&P Assessment and plan (1) Acute exacerbation of chronic obstructive airways disease: (2) Acute on chronic hypoxic respiratory failure: (3) Pneumonia: (4) Influenza A: Plan Acute hypoxic respiratory failure ? Multifactorial ? Secondary to COPD ? Influenza A ? Healthcare associated pneumonia ? Plan ? Monitor respiratory status closely ? Encourage BiPAP use ? Tamiflu ? Vancomycin ? Meropenem # DuoNeb # Budesonide ? Solu-Medrol ? Monitor respiratory status closely # Patient is DNR/DNI, confirmed with patient multiple times # Lovenox for DVT prophylaxis History of CHF, check BMP Transaminitis, monitor Akathisia, monitor History of anemia, monitor hemoglobin CKD, monitor 02/19/2024 Patient is awake alert and oriented today. Seems to be clinically doing better. We will continue treatment for influenza pneumonia. Continue Tamiflu. Continue ceftriaxone and azithromycin. Patient and family are interested in transitioning to hospice and Levophed close multiple comorbidities. Patient does not use BiPAP at home stating that he feels extremely claustrophobic. States he is unlikely to use it after discharge either. Hospice referral has been generated, family would like to talk some more about their options before coming to final conclusion. His son has traveled from out of state. His sister is Currently at bedside additionally. Both state that his sister would be better suited to making decisions for the patient should he become obtunded again. Negative serial tropinin deltas. Likely demand ischemia. D/c heparin drip later today. 02/20/2024 Patient is alert and awake. However he is having a harder time breathing compared to yesterday. Unable to complete full sentences. Had an extensive goals of care discussion with him this morning. Patient states that he would not like any further escalation in care. Discussed with him his wish to transition to hospice care. He understands that he probably only has weeks to months to live. He has extensive peripheral artery disease, bilateral lower extremity with very poor peripheral circulation. Concerned that the right lower extremity may progress to gangrene. Currently also is showing signs of type II IA, he does not want any further interventions on his heart. States that he would just like treatment for the pneumonia for now, continue respiratory care with regards to nebulization and antibiotics, however does not want to remain on BiPAP. If his respiratory status continues to deteriorate, he wishes to be transition to comfort care management only. For now we are adding as needed morphine and as needed Ativan to alleviate some of his air hunger. Patient exhibits understanding and is able to repeat back to me the risk of respiratory depression with morphine and Ativan, he states he understands that he may pass in his sleep, and has made peace with the fact that it is his time. He wants to prioritize comfort over other things at this point in time. Disposition planning ongoing for discharge to home vs SNF with hospice. Care plan discussed with sister Misty and son Sharath at bedside. Transfer to med/surg. Continue iv abx- d/c vanc as not MRSA. Narrow meropenem to ceftriaxone. continue tamiflu 02/21/2024: Patient has had intermittent hallucinations and confusion. prn morphine appears to help with air hunger but does not last for 4 hr interval. will make morphine more frequent today. [facility] discussed with son Sharath at bedside and Son Kentrell over the phone. They are in agreement with hospice care. We will plan to complete a 5 day course of antivirals and antibiotics and then focud purely on patient's comfort from there on. Transition to comfort care management is being considered at the end of abx course. Patient had made his wishes clear on extensive discussion yesterday- he would like to breather better and understood his poor prognosis. Will discontinue high dose steroids as likely contributing to delirium. D/c ASA, Plavix to minimize oral medications, transition to hospice. Pending hospice to review referral , transition to inpatient hospice vs discharge with hospice 02/22/2024 Patient's breathing is not comfortable today. He states the breathing is not as good as he would like it to be. He is exhibiting intermittent hallucinations, increasing confusion. Patient is completing 5 days of treatment for influenza pneumonia however it has not had a significant benefit. He has not exhibited an overall improvement. His respiratory status continues to be quite tenuous. He has other comorbidities including COPD, peripheral artery disease, coronary artery disease, NSTEMI versus type II IA on this current admission. Patient has previously made his wishes clear that he does not wish to pursue any further aggressive measures and would like to transition to comfort care management only. His son Chalo at bedside and has Kentrell over the phone are in agreement and keeping patient as comfortable as possible. Tamiflu and IV antibiotics discontinued as completing a 5-day course today. Will transition to comfort care measures only from this point on. Attestations 2 Medical Necessity Statement*: Transition to comfort care management Coding Level of Care Code Acute Code for Chg Fwd High Time for a total of 60 minutes, includes reviewing past or interval history, examining/interviewing patient, placing orders, counseling patient/family/other support, updating patient/family/other support, discussing plan of care with staff, communicating with other healthcare providers, documenting encounter and coordinating care Diagnoses Acute exacerbation of chronic obstructive airways disease J44.1 Acute on chronic hypoxic respiratory failure J96.21 Pneumonia J18.9 Influenza A J10.1
[2024-03-24] VITALS: BP 114/77; PULSE 77; RESP 15; TEMP 37; O2SAT 98
[2024-03-24] MEDS: LORazepam 2 mg/mL INJ 1 mL 1 MG IVP ×3 (00:04→08:16)
[2024-03-24 02:31] VITALS: RESP 20
[2024-03-24] MEDS: morphine 4 mg/mL SDV 1 mL IVP ×3 (02:31→11:16)
[2024-03-24 04:00] VITALS: BP 121/75; PULSE 80; RESP 11; TEMP 36.4; O2SAT 94
[2024-03-24 07:21] VITALS: BP 110/77; PULSE 81; RESP 18; TEMP 36.9; O2SAT 98
--- NOTE | 2024-03-24 09:11 | PC.SOCIAL ---
IMM Update Pg. 2 of IMM updated and copy provided at bedside.
[2024-03-24] MEDS: LORazepam 2 mg/mL INJ 1 mL IVP ×2 (13:23→17:58)
[2024-03-24] MEDS: morphine 10 mg/0.5 mL oral liq UD SUBLINGUAL ×4 (13:28→21:59)
--- NOTE | 2024-03-24 13:35 | P.PN_ITS ---
Subjective 2 Subjective: Patient was declined for general inpatient hospice as reportedly he was awake at the time of assessment. Medications: Reviewed: Yes Vitals/I&O/Wt Last Vital Signs Temp 98.5 F 03/24/24 07:21 Pulse 81 03/24/24 07:21 Resp 18 03/24/24 07:21 BP 110/77 03/24/24 07:21 Pulse Ox 98 03/24/24 07:21 O2 Del Method Nasal Cannula 03/24/24 07:21 O2 Flow Rate 6 03/24/24 07:21 FiO2 3 03/20/24 23:30 03/23/24 03/24/24 03/24/24 22:59 06:59 14:59 Output Total 300 / 350 Balance -300 / 100 Weight last 48 hrs Weight 78.29 kg Weight 79.288 kg Physical Exam 2 Narrative: General: somnolent, doesn't wake up, myoclonus Urinary Catheter Management: Ashley: Cath Placed During This Visit: yes Reason for Continuing Indwelling Catheter: Acute Urinary Retention or Obstruction Urinary Catheter Date of Insertion: 03/19/24 Urinary Catheter Time of Insertion: 13:37 Data 03/21/24 05:02 03/21/24 05:02 Micro: Microbiology 03/18/24 20:26 Blood Culture - Final Blood NO GROWTH AFTER 5 DAYS 03/18/24 20:15 Blood Culture - Final Blood NO GROWTH AFTER 5 DAYS A&P Assessment and plan (1) Acute exacerbation of chronic obstructive airways disease: (2) Acute on chronic hypoxic respiratory failure: (3) Pneumonia: (4) Influenza A: Plan Acute hypoxic respiratory failure ? Multifactorial ? Secondary to COPD ? Influenza A ? Healthcare associated pneumonia ? Plan ? Monitor respiratory status closely ? Encourage BiPAP use ? Tamiflu ? Vancomycin ? Meropenem # DuoNeb # Budesonide ? Solu-Medrol ? Monitor respiratory status closely # Patient is DNR/DNI, confirmed with patient multiple times # Lovenox for DVT prophylaxis History of CHF, check BMP Transaminitis, monitor Akathisia, monitor History of anemia, monitor hemoglobin CKD, monitor 02/19/2024 Patient is awake alert and oriented today. Seems to be clinically doing better. We will continue treatment for influenza pneumonia. Continue Tamiflu. Continue ceftriaxone and azithromycin. Patient and family are interested in transitioning to hospice and Levophed close multiple comorbidities. Patient does not use BiPAP at home stating that he feels extremely claustrophobic. States he is unlikely to use it after discharge either. Hospice referral has been generated, family would like to talk some more about their options before coming to final conclusion. His son has traveled from out of state. His sister is Currently at bedside additionally. Both state that his sister would be better suited to making decisions for the patient should he become obtunded again. Negative serial tropinin deltas. Likely demand ischemia. D/c heparin drip later today. 02/20/2024 Patient is alert and awake. However he is having a harder time breathing compared to yesterday. Unable to complete full sentences. Had an extensive goals of care discussion with him this morning. Patient states that he would not like any further escalation in care. Discussed with him his wish to transition to hospice care. He understands that he probably only has weeks to months to live. He has extensive peripheral artery disease, bilateral lower extremity with very poor peripheral circulation. Concerned that the right lower extremity may progress to gangrene. Currently also is showing signs of type II PR, he does not want any further interventions on his heart. States that he would just like treatment for the pneumonia for now, continue respiratory care with regards to nebulization and antibiotics, however does not want to remain on BiPAP. If his respiratory status continues to deteriorate, he wishes to be transition to comfort care management only. For now we are adding as needed morphine and as needed Ativan to alleviate some of his air hunger. Patient exhibits understanding and is able to repeat back to me the risk of respiratory depression with morphine and Ativan, he states he understands that he may pass in his sleep, and has made peace with the fact that it is his time. He wants to prioritize comfort over other things at this point in time. Disposition planning ongoing for discharge to home vs SNF with hospice. Care plan discussed with sister Misty and jeff Early at bedside. Transfer to med/surg. Continue iv abx- d/c vanc as not MRSA. Narrow meropenem to ceftriaxone. continue tamiflu 02/21/2024: Patient has had intermittent hallucinations and confusion. prn morphine appears to help with air hunger but does not last for 4 hr interval. will make morphine more frequent today. [facility] discussed with jeff Early at bedside and Jeff Partidan over the phone. They are in agreement with hospice care. We will plan to complete a 5 day course of antivirals and antibiotics and then focud purely on patient's comfort from there on. Transition to comfort care management is being considered at the end of abx course. Patient had made his wishes clear on extensive discussion yesterday- he would like to breather better and understood his poor prognosis. Will discontinue high dose steroids as likely contributing to delirium. D/c ASA, Plavix to minimize oral medications, transition to hospice. Pending hospice to review referral , transition to inpatient hospice vs discharge with hospice 02/22/2024 Patient's breathing is not comfortable today. He states the breathing is not as good as he would like it to be. He is exhibiting intermittent hallucinations, increasing confusion. Patient is completing 5 days of treatment for influenza pneumonia however it has not had a significant benefit. He has not exhibited an overall improvement. His respiratory status continues to be quite tenuous. He has other comorbidities including COPD, peripheral artery disease, coronary artery disease, NSTEMI versus type II PR on this current admission. Patient has previously made his wishes clear that he does not wish to pursue any further aggressive measures and would like to transition to comfort care management only. His son Chalo at bedside and has Kentrell over the phone are in agreement and keeping patient as comfortable as possible. Tamiflu and IV antibiotics discontinued as completing a 5-day course today. Will transition to comfort care measures only from this point on. 02/23/2024 Patient is lethargic, somnolent. He has just received morphine. Noted to have myoclonic jerks affecting upper and lower extremities. Suspect that he may be hypercapnic resulting in the myoclonus. Does not respond to verbal commands. He is really not eating anything. We will continue comfort care management. As needed morphine for air hunger. Ativan for seizures/myoclonic jerks. Declined by inpatient hospice.Disposition planning ongoing Continue comfort care Attestations 2 Medical Necessity Statement*: Continue comfort care management. Coding Level of Care Code Acute Code for Chg Fwd Moderate MDM includes number and complexity of problems actively addressed during encounter, amount and/or complexity of data reviewed/ordered and described risk of complication, morbidity or mortality of management as documented Diagnoses Acute exacerbation of chronic obstructive airways disease J44.1 Acute on chronic hypoxic respiratory failure J96.21 Pneumonia J18.9 Influenza A J10.1
[2024-03-24 15:32] VITALS: BP 111/69; PULSE 90; RESP 17; TEMP 36.7; O2SAT 91
[2024-03-24 20:00] VITALS: BP 102/70; PULSE 91; RESP 15; TEMP 36.7; O2SAT 97
[2024-03-24] MEDS: LORazepam 2 mg/mL oral liquid (mL) PO (22:28)
[2024-03-24] MEDS: haloperidol inj 5 mg/mL INJ 1 mL 4 MG IM (23:28)
[2024-03-24] MEDS: LORazepam 2 mg/mL INJ 1 mL IM (23:29)
[2024-03-25] MEDS: LORazepam 2 mg/mL oral liquid (mL) PO ×4 (00:24→13:47)
--- NOTE | 2024-03-25 00:25 | PC.NURSE ---
Patient very restless and frequently moving around in bed, kicking legs over side of bed, pulling off oxygen and telemetry. PRN Ativan given.
--- NOTE | 2024-03-25 01:14 | PC.NURSE ---
At 2200, patient was becoming more anxious and agitated and pulled out their IV line in their right arm. PRN Roxenol 6mg was given to the patient. Hospitalist Dr. Chauhan was called and notified and was able to switch patients PRN Ativan to Oral-liquid and IM. Patient continued to be agitated and was given PRN Ativan 2mg at 2227. Patient continued to be more anxious and agitated and required a 1 on 1 sitter between the nurse and HACK DRIVER. Charge nurse and data warehouse consultant was notified. Patients agitation continued to worsen. Dr. Chauhan was called at 2254 and was able to change patients PRN Haldol 1mg to IM from IVP due to patient not having IV access. New orders was received from hospitalist to change to Haldol order to IM and give a 1 time dose of 4mg Haldol IM and 1mg of Ativan IM. Patient family was contacted and at 2309 Jarad Davison was notifed of the patients condition and the new orders from the hospitalist. No complaints or questions from the family at the time. The 4mg Haldol and 1mg Ativan was administered in the right deltoid by this nurse at 2328. Nurse stayed with the patient until the data warehouse consultant arranged a RN nurse to sit 1 on 1 with the patient and take over care. This nurse administered another dose of Roxenol 8mg at 0001 sublingual due to patients agitation not improving. RN nurse Mansi arrived at 0030 and took over cares for the patient.
[2024-03-25] MEDS: LORazepam 2 mg/mL INJ 1 mL IM ×2 (02:00→08:02)
[2024-03-25] MEDS: morphine 10 mg/0.5 mL oral liq UD SUBLINGUAL ×5 (02:01→07:59)
--- NOTE | 2024-03-25 02:52 | PC.NURSE ---
Patient is still restless and agitated despite being repositioned multiple times, receiving multiple doses of Roxanol, Ativan, and Haldol.
[2024-03-25] MEDS: haloperidol inj 5 mg/mL INJ 1 mL 1 MG IM (03:09)
[2024-03-25] MEDS: morphine 10 mg/0.5 mL oral liq UD PO ×5 (11:29→14:56)
--- NOTE | 2024-03-25 14:49 | P.PN_ITS ---
Subjective 2 Subjective: Patient lost IV access overnight and this was unable to be placed back again in spite of multiple attempts. Continues to be on comfort care management. His medications were changed to oral equivalents and increased frequency as he is unable to get any IV medications. Medications: Reviewed: Yes Vitals/I&O/Wt Last Vital Signs Temp 98.0 F 03/24/24 20:00 Pulse 91 03/24/24 20:00 Resp 15 03/24/24 20:00 BP 102/70 03/24/24 20:00 Pulse Ox 97 03/24/24 20:00 O2 Del Method Nasal Cannula 03/24/24 20:00 O2 Flow Rate 2 03/24/24 20:00 FiO2 3 03/20/24 23:30 03/24/24 03/25/24 03/25/24 22:59 06:59 14:59 Output Total 500 / 500 Balance -500 / -500 Weight last 48 hrs Weight 74.843 kg Weight 78.29 kg Physical Exam 2 Narrative: General: somnolent, doesn't wake up, appears to be comfortable Urinary Catheter Management: Ashley: Cath Placed During This Visit: yes Reason for Continuing Indwelling Catheter: Hospice/Comfort/Palliative Care Urinary Catheter Date of Insertion: 03/19/24 Urinary Catheter Time of Insertion: 13:37 Data 03/21/24 05:02 03/21/24 05:02 A&P Assessment and plan (1) Acute exacerbation of chronic obstructive airways disease: (2) Acute on chronic hypoxic respiratory failure: (3) Pneumonia: (4) Influenza A: Plan Acute hypoxic respiratory failure ? Multifactorial ? Secondary to COPD ? Influenza A ? Healthcare associated pneumonia ? Plan ? Monitor respiratory status closely ? Encourage BiPAP use ? Tamiflu ? Vancomycin ? Meropenem # DuoNeb # Budesonide ? Solu-Medrol ? Monitor respiratory status closely # Patient is DNR/DNI, confirmed with patient multiple times # Lovenox for DVT prophylaxis History of CHF, check BMP Transaminitis, monitor Akathisia, monitor History of anemia, monitor hemoglobin CKD, monitor 03/20/2024 Patient is awake alert and oriented today. Seems to be clinically doing better. We will continue treatment for influenza pneumonia. Continue Tamiflu. Continue ceftriaxone and azithromycin. Patient and family are interested in transitioning to hospice and Levophed close multiple comorbidities. Patient does not use BiPAP at home stating that he feels extremely claustrophobic. States he is unlikely to use it after discharge either. Hospice referral has been generated, family would like to talk some more about their options before coming to final conclusion. His son has traveled from out of state. His sister is Currently at bedside additionally. Both state that his sister would be better suited to making decisions for the patient should he become obtunded again. Negative serial tropinin deltas. Likely demand ischemia. D/c heparin drip later today. 03/21/2024 Patient is alert and awake. However he is having a harder time breathing compared to yesterday. Unable to complete full sentences. Had an extensive goals of care discussion with him this morning. Patient states that he would not like any further escalation in care. Discussed with him his wish to transition to hospice care. He understands that he probably only has weeks to months to live. He has extensive peripheral artery disease, bilateral lower extremity with very poor peripheral circulation. Concerned that the right lower extremity may progress to gangrene. Currently also is showing signs of type II [place], he does not want any further interventions on his heart. States that he would just like treatment for the pneumonia for now, continue respiratory care with regards to nebulization and antibiotics, however does not want to remain on BiPAP. If his respiratory status continues to deteriorate, he wishes to be transition to comfort care management only. For now we are adding as needed morphine and as needed Ativan to alleviate some of his air hunger. Patient exhibits understanding and is able to repeat back to me the risk of respiratory depression with morphine and Ativan, he states he understands that he may pass in his sleep, and has made peace with the fact that it is his time. He wants to prioritize comfort over other things at this point in time. Disposition planning ongoing for discharge to home vs SNF with hospice. Care plan discussed with sister Misty and jeff Early at bedside. Transfer to med/surg. Continue iv abx- d/c vanc as not MRSA. Narrow meropenem to ceftriaxone. continue tamiflu 03/22/2024: Patient has had intermittent hallucinations and confusion. prn morphine appears to help with air hunger but does not last for 4 hr interval. will make morphine more frequent today. [facility] discussed with jeff Early at bedside and Jeff Pfeiffer over the phone. They are in agreement with hospice care. We will plan to complete a 5 day course of antivirals and antibiotics and then focud purely on patient's comfort from there on. Transition to comfort care management is being considered at the end of abx course. Patient had made his wishes clear on extensive discussion yesterday- he would like to breather better and understood his poor prognosis. Will discontinue high dose steroids as likely contributing to delirium. D/c ASA, Plavix to minimize oral medications, transition to hospice. Pending hospice to review referral , transition to inpatient hospice vs discharge with hospice 03/23/2024 Patient's breathing is not comfortable today. He states the breathing is not as good as he would like it to be. He is exhibiting intermittent hallucinations, increasing confusion. Patient is completing 5 days of treatment for influenza pneumonia however it has not had a significant benefit. He has not exhibited an overall improvement. His respiratory status continues to be quite tenuous. He has other comorbidities including COPD, peripheral artery disease, coronary artery disease, NSTEMI versus type II MO on this current admission. Patient has previously made his wishes clear that he does not wish to pursue any further aggressive measures and would like to transition to comfort care management only. His son Chalo at bedside and has Kentrell over the phone are in agreement and keeping patient as comfortable as possible. Tamiflu and IV antibiotics discontinued as completing a 5-day course today. Will transition to comfort care measures only from this point on. 03/24/2024 Patient is lethargic, somnolent. He has just received morphine. Noted to have myoclonic jerks affecting upper and lower extremities. Suspect that he may be hypercapnic resulting in the myoclonus. Does not respond to verbal commands. He is really not eating anything. We will continue comfort care management. As needed morphine for air hunger. Ativan for seizures/myoclonic jerks. Declined by inpatient hospice.Disposition planning ongoing Continue comfort care 03/25/2024 Dates corrected on above notes. All above notations pertaining to admission from February 2024, not January 2024 as were originally dated. Currently patient appears to be comfortable. Overnight he was unable to get IV medications as ordered per protocol due to lack of IV access. Currently only getting every 2 hours as needed oral medications. Since he has lost his IV access through which medications could be given every 15 to 30 minutes as needed, we will increase the frequency at which medications can be given orally.. Overnight patient was uncomfortable. He was noted to be agitated. This morning he is much more calm after having received his oral medications including morphine and Ativan. Continued comfort care management Attestations 2 Medical Necessity Statement*: Continued comfort care management. Coding Level of Care Code Acute Code for [facility] Diagnoses Acute exacerbation of chronic obstructive airways disease J44.1 Acute on chronic hypoxic respiratory failure J96.21 Pneumonia J18.9 Influenza A J10.1
[2024-03-25] MEDS: atropine 1% op soln 2 mL Btl 2 DROP SUBLINGUAL (15:04)
--- NOTE | 2024-03-25 16:31 | PC.NURSE ---
pt at 1541, verified with 2nd nurse, mendoza sup and notified
[2024-03-25 17:24] VITALS: BP 0/0; PULSE 0; O2SAT 0
== END 2024-03-25 17:25 | disposition expired | DRG 193 ==
LOC: ER 18:08 → MEDSURG 20:28 → ICU 21:05 → MEDSURG 03-21 13:04
PROVIDERS: Family Medicine; Internal Medicine; Admitting Provider Family Medicine; Emergency Provider Emergency Medicine; PCP Nurse Practitioner Family; Visit Provider Student in an Organized Health Care Education/Training Program
DX: J18.9 Pneumonia, unspecified organism (principal); I21.A1 Myocardial infarction type 2; I50.33 Acute on chronic diastolic (congestive) heart failure; J96.22 Acute and chronic respiratory failure with hypercapnia; J96.21 Acute and chronic respiratory failure with hypoxia; J44.0 Chronic obstructive pulmonary disease with (acute) lower respiratory infection; I13.0 Hypertensive heart and chronic kidney disease with heart failure and stage 1 through stage 4 chronic kidney disease, or unspecified chronic kidney disease; E44.0 Moderate protein-calorie malnutrition; J44.1 Chronic obstructive pulmonary disease with (acute) exacerbation; J43.9 Emphysema, unspecified; J47.9 Bronchiectasis, uncomplicated; J10.1 Influenza due to other identified influenza virus with other respiratory manifestations; Z51.5 Encounter for palliative care; N18.9 Chronic kidney disease, unspecified; E78.5 Hyperlipidemia, unspecified; N40.0 Benign prostatic hyperplasia without lower urinary tract symptoms; I48.0 Paroxysmal atrial fibrillation; F41.9 Anxiety disorder, unspecified; F32.A Depression, unspecified; R45.1 Restlessness and agitation; I25.10 Atherosclerotic heart disease of native coronary artery without angina pectoris; R74.01 Elevation of levels of liver transaminase levels; J84.10 Pulmonary fibrosis, unspecified; R73.9 Hyperglycemia, unspecified; Z68.21 Body mass index [BMI] 21.0-21.9, adult; I73.9 Peripheral vascular disease, unspecified; R41.0 Disorientation, unspecified; G25.3 Myoclonus; Z87.891 Personal history of nicotine dependence; Z79.02 Long term (current) use of antithrombotics/antiplatelets; Z79.82 Long term (current) use of aspirin
CPT/HCPCS: 36415; 36416; 36600; 51702; 71045; 71275; 80051; 80053; 81001; 82330; 82805; 82962; 83036; 83605; 83880; 84145; 84484; 85025; 85730; 86140; 86704; 87040; 87637; 93005; 94640; 94660; 94664; 96366; 96367; 96372; 96374; 96375; 96376; 99285; J0456; J0696; J1100; J1630; J1644; J1940; J2060; J2185; J2270; J2470; J2919; J3370; J7050; J7626